=== PATIENT | female | born 1940 | race Caucasian/White ===

== ENCOUNTER 2019-01-15 17:27 | Emergency (ER) | payer OTHER, BC ==
[2019-01-15 18:42] LABS: Protime INR 1.09
[2019-01-15 18:44] LABS: Absolute Lymphocytes (CBC) 1.3 K/uL (0.7-4.9); Basophils % 0.4 % (0-1.3); Hematocrit 37.4 % (36.0-45.0); Lymphocytes % 16.2 % (15.3-44.8); MPV 10.2 fL (7.6-11.3); RBC Red Blood Cell Count 3.89 M/uL (3.86-4.86)
[2019-01-15 18:54] LABS: ALT/SGPT 24 U/L (12-78); AST/SGOT 20 U/L (15-37); Albumin 3.3 g/dL (3.4-5.0); Alkaline Phosphatase 56 U/L (45-117); BUN Blood Urea Nitrogen 13 mg/dL (7-18); Bicarbonate 27 mmol/L (21-32); Bilirubin Direct 0.3 mg/dL (0-0.2); Bilirubin Total 1.1 mg/dL (0.2-1.0); Glucose Level 120 mg/dL (74-106); Lipase 37 U/L (73-393); Magnesium 2.2 mg/dL (1.8-2.4); NT PRO-BNP 164 pg/mL (<450); Potassium 4.1 mmol/L (3.5-5.1); Protein, Total 7.3 g/dL (6.4-8.2); Sodium Level 140 mmol/L (136-145); Troponin (Emerg Dept Use Only) < 0.02 ng/mL (0.0-0.045)
--- NOTE | 2019-01-15 21:08 | RAD REPORT ---
EXAM DESCRIPTION: CT - Chest Abdomen Pelvis W Cont - 01/15/2019 7:22 pm CLINICAL HISTORY: Chest and abdominal pain COMPARISON: None TECHNIQUE: Computed axial tomography of the chest, abdomen and pelvis was obtained. 100 cc Isovue-30 0 was administered intravenously. Oral contrast was not requested. This limits evaluation of bowel. All CT scans are performed using dose optimization technique as appropriate and may include automated exposure control or mA/KV adjustment according to patient size. FINDINGS: Mild right lower lobe opacities. Minimal left basilar atelectasis A pleural effusion is not present. No pericardial effusion The esophagus is dilated. Questionable soft tissue is present at the GE junction. The esophagus is fl uid-filled. Fatty liver Pancreas, adrenals and right kidney unremarkable 4.4 centimeter left renal cyst. 1 centimeter intermediate density cystic mass lies adjacent to this w ithin the upper pole. The liver, spleen, pancreas, adrenals and kidneys appear unremarkable. The bladder appears grossly normal. No ascites is seen. Neurostimulator device is place Small ventral and small umbilical hernia contains fat Cholecystectomy IMPRESSION: The esophagus is dilated with questionable soft tissue at the GE junction. It is unclear if the patient has had a gastric pull-through. If not then direct visualization of the GE junction w ould be recommended Mild right lower lobe opacities may represent aspiration pneumonitis from esophageal contents. 1 centimeter intermediate density cystic mass left kidney is nonspecific. Followup ultrasound in 6 mo nths recommended to assess stability
[2019-01-15] MEDS ORDERED: PIPER/TAZO/NS 3.375gm 3.375 GM/100 ML BAG ONE (21:16)
--- NOTE | 2019-01-15 21:44 | RAD REPORT ---
EXAM DESCRIPTION: Samanthat Single View01/15/2019 7:21 pm CLINICAL HISTORY: Chest pain COMPARISON: 2017 FINDINGS: Mild right basilar opacities. Small area of subsegmental atelectasis left base. The heart is normal size. Neurostimulator device in place IMPRESSION: Mild right lower lobe pneumonia
--- NOTE | 2019-01-15 21:55 | ER ---
Nurse's Notes [facility] Name: Maricruz Conrad Age: 78 yrs Sex: Female : 1940 Arrival Date: 01/15/2019 Time: 17:28 Bed 2 Private MD: Diagnosis: Pneumonia Presentation: 01/15 17:37 Presenting complaint: Sharp RUQ and substernal chest pain that started at 1000 today. hb Pain is worse with cough and deep breathing. Transition of care: patient was not received from another setting of care. Onset of symptoms was January 15, 2019. Risk Assessment: Do you want to hurt yourself or someone else? Patient reports no desire to harm self or others. Initial Sepsis Screen: Does the patient meet any 2 criteria? No. Patient's initial sepsis screen is negative. Does the patient have a suspected source of infection? No. Patient's initial sepsis screen is negative. Care prior to arrival: None. 17:37 Method Of Arrival: Wheelchair hb 17:37 Acuity: EMILY 3 hb Triage Assessment: 17:45 General: Appears in no apparent distress. comfortable, Behavior is calm, cooperative, bp appropriate for age. Pain: Complains of pain in chest and abdomen. EENT: No deficits noted. Neuro: No deficits noted. Cardiovascular: Rhythm is atrial fibrillation. Respiratory: No deficits noted. GI: Reports upper abdominal pain. : No signs and/or symptoms were reported regarding the genitourinary system. Derm: No deficits noted. Musculoskeletal: No deficits noted. Historical: - Allergies: 17:39 No Known Allergies; hb - PMHx: 17:39 COPD; High Cholesterol; Diabetes - IDDM; GERD; Hypertension; Anxiety; hb - Immunization history:: Adult Immunizations up to date. - Social history:: Smoking status: Patient/guardian denies using tobacco. - Ebola Screening: : No symptoms or risks identified at this time. Screenin:21 Abuse screen: Denies threats or abuse. Denies injuries from another. Nutritional bp screening: No deficits noted. Tuberculosis screening: No symptoms or risk factors identified. Fall Risk None identified. Assessment: 18:00 General: SEE TRIAGE NOTE. bp 19:10 Reassessment: Patient and/or family updated on plan of care and expected duration. Pain bp level reassessed. Patient is alert, oriented x 3, equal unlabored respirations, skin warm/dry/pink. Pt taken to CT. 19:54 General: Behavior is calm, cooperative, appropriate for age. Pain: Complains of pain in ea abdomen Pain does not radiate. Pain began. Neuro: Level of Consciousness is awake, alert, obeys commands, Oriented to person, place, time, situation. Respiratory: Airway is patent Respiratory effort is even, unlabored, Respiratory pattern is regular, symmetrical. Derm: Skin is pink, warm \T\ dry. 20:32 Reassessment: Patient and/or family updated on plan of care and expected duration. Pain ea level reassessed. Patient is alert, oriented x 3, equal unlabored respirations, skin warm/dry/pink. Awaiting on CT results. 20:46 Reassessment: Patient and/or family updated on plan of care and expected duration. Pain ea level reassessed. Patient is alert, oriented x 3, equal unlabored respirations, skin warm/dry/pink. Provider at bedside updating pt on plan of care. 21:09 Reassessment: Patient and/or family updated on plan of care and expected duration. Pain bb level reassessed. Patient is alert, oriented x 3, equal unlabored respirations, skin warm/dry/pink. Robert SWEET at bedside for discussion of findings and plan of care will await new lab results and will consider discharging pt home if they are normal. Pt verbalized understanding of and agrees to plan of care. 22:59 Reassessment: Patient and/or family updated on plan of care and expected duration. Pain bb level reassessed. Patient is alert, oriented x 3, equal unlabored respirations, skin warm/dry/pink. pt verbalized understanding of and agrees to plan of care discharge instructions given pt assisted to exit via wheelchair accompanied by spouse. Vital Signs: 17:39 BP 150 / 82; Pulse 86; Resp 20; Temp 97; Pulse Ox 93% on R/A; Weight 81.65 kg; Height 5 hb ft. 3 in. (160.02 cm); Pain 9/10; 18:22 BP 143 / 62; Pulse 96; Resp 16; Pulse Ox 93% ; bp 20:01 BP 129 / 65; Pulse 90; Resp 20; Temp 97.9; Pulse Ox 94% ; ea 21:11 BP 126 / 59; Pulse 78; Resp 16 S; Pulse Ox 92% on R/A; bb 23:00 BP 113 / 59; Pulse 76; Resp 18 S; Temp 98.6(TE); Pulse Ox 92% on R/A; bb 17:39 Body Mass Index 31.89 (81.65 kg, 160.02 cm) hb ED Course: 17:28 Patient arrived in ED. as 17:38 Triage completed. hb 17:39 Arm band placed on. hb 17:41 Carlyle Dixon, RICKI is Primary Nurse. bp 17:41 Robert Bailey PA is PHCP. jmm 17:41 Alan Rubio MD is Attending Physician. m 17:55 Radiology exam delayed due to lab results not completed at this time. (BUN/Creatinine). vm2 18:00 Inserted saline lock: 22 gauge in right forearm, using aseptic technique. Blood bp collected. Patient maintains SpO2 saturation greater than 95% on room air. 18:21 Patient has correct armband on for positive identification. Bed in low position. Call bp light in reach. Side rails up X2. Adult w/ patient. Pulse ox on. NIBP on. 18:41 Radiology exam delayed due to lab results not completed at this time. (BUN/Creatinine). vm2 18:57 XRAY Chest (1 view) In Process Unspecified. EDMS 19:23 CT Chest, Abdomen, Pelvis - W/Contrast In Process Unspecified. EDMS 21:00 Initial lab(s) drawn, sent to lab. First set of blood cultures drawn by me. bb 21:08 Inserted saline lock: 20 gauge in left forearm, using aseptic technique. Blood bb collected. 23:00 No provider procedures requiring assistance completed. IV discontinued, intact, bb bleeding controlled, No redness/swelling at site. Pressure dressing applied. Administered Medications: 21:40 Drug: Zosyn 3.375 grams Route: IVPB; Infused Over: 60 mins; Site: left forearm; ea 22:40 Follow up: IV Status: Completed infusion; IV Intake: 100ml bb Intake: 22:40 IV: 100ml; Total: 100ml. bb Outcome: 21:54 Discharge ordered by . m 23:00 Discharged to home via wheelchair, with family. bb 23:00 Condition: stable 23:00 Discharge instructions given to patient, Instructed on discharge instructions, follow up and referral plans. medication usage, Demonstrated understanding of instructions, follow-up care, medications. 23:01 Patient left the ED. bb Signatures: Dispatcher [employer] EDMS Robert Bailey PA PA jmm Martinez, Amelia as Ballard, Brenda, RN RN Serenity De La Cruz, RN RN Fabienne Ennis [facility] Haylie Renteria RN RN Carlyle Sanderson RN RN bp
--- NOTE | 2019-01-15 21:55 | EDPHYS ---
Physician Documentation [facility] Name: Maricruz Conrad Age: 78 yrs Sex: Female : 1940 Arrival Date: 01/15/2019 Time: 17:28 Bed 2 Private MD: CAN Physician Alan Rubio HPI: 01/15 17:41 This 78 yrs old Female presents to ER via Wheelchair with complaints of Chest jmm Pain, Abdominal Pain. 17:41 The patient or guardian reports chest pain that is located primarily in the substernal [facility] area. Onset: gradually, 8 hour(s) ago. The pain does not radiate. Associated signs and symptoms: Pertinent positives: abdominal pain, Pertinent negatives: vomiting. Associated signs and symptoms: Pertinent positives:. The chest pain is described as sharp. Duration: The patient or guardian reports a single episode, that is still ongoing. Modifying factors: The symptoms are alleviated by nothing. the symptoms are aggravated by deep breath. 17:41 The patient has experienced a previous episode. [facility] Historical: - Allergies: 17:39 No Known Allergies; hb - PMHx: 17:39 COPD; High Cholesterol; Diabetes - IDDM; GERD; Hypertension; Anxiety; hb - Immunization history:: Adult Immunizations up to date. - Social history:: Smoking status: Patient/guardian denies using tobacco. - Ebola Screening: : No symptoms or risks identified at this time. ROS: 17:41 Constitutional: Negative for fever, chills, and weight loss. jmm 17:41 Cardiovascular: Positive for chest pain. 17:41 Respiratory: Positive for cough, shortness of breath. 17:41 Abdomen/GI: Positive for abdominal pain, Negative for vomiting, diarrhea. 17:41 All other systems are negative. Exam: 17:41 Constitutional: This is a well developed, well nourished patient who is awake, alert, jmm and in no acute distress. Head/Face: atraumatic. Eyes: EOMI, no conjunctival erythema appreciated ENT: Moist Mucus Membranes Neck: Trachea midline, Supple Chest/axilla: Normal chest wall appearance and motion. 17:41 Abdomen/GI: Non distended, soft Back: Normal ROM Skin: General appearance color normal MS/ Extremity: Moves all extremities, no obvious deformities appreciated, no edema noted to the lower extremities Neuro: Awake and alert, normal gait Psych: Behavior is normal, Mood is normal, Patient is cooperative and pleasant 17:41 Cardiovascular: Rate: normal, Rhythm: regular. 17:41 Respiratory: the patient does not display signs of respiratory distress, Respirations: normal, Breath sounds: are clear throughout. Vital Signs: 17:39 BP 150 / 82; Pulse 86; Resp 20; Temp 97; Pulse Ox 93% on R/A; Weight 81.65 kg; Height 5 hb ft. 3 in. (160.02 cm); Pain 9/10; 18:22 BP 143 / 62; Pulse 96; Resp 16; Pulse Ox 93% ; bp 20:01 BP 129 / 65; Pulse 90; Resp 20; Temp 97.9; Pulse Ox 94% ; ea 21:11 BP 126 / 59; Pulse 78; Resp 16 S; Pulse Ox 92% on R/A; bb 23:00 BP 113 / 59; Pulse 76; Resp 18 S; Temp 98.6(TE); Pulse Ox 92% on R/A; bb 17:39 Body Mass Index 31.89 (81.65 kg, 160.02 cm) hb MDM: 17:41 Patient medically screened. shelley 21:50 Data reviewed: vital signs, nurses notes. Counseling: I had a detailed discussion with alissa the patient and/or guardian regarding: the historical points, exam findings, and any diagnostic results supporting the discharge/admit diagnosis, radiology results, the need for outpatient follow up, to return to the emergency department if symptoms worsen or persist or if there are any questions or concerns that arise at home. ED course: I discussed the patient with Dr. Dupont whom visited the patient at bedside. Advised the patient is safe to D/C/ Patient is advised to follow up with pcp and otherwise given strict return precautions. Patient is non hypoxic, non septic. Advised to sleep with head elevated and continue PPI. Patient otherwise given strict return precautions. patient understood and agrees with the plan of care. . 01/15 17:41 Order name: Basic Metabolic Panel; Complete Time: 18:55 [facility] 01/15 17:41 Order name: CBC with Diff; Complete Time: 18:56 [facility] 01/15 17:41 Order name: LFT's; Complete Time: 18:55 [facility] 01/15 17:41 Order name: Magnesium; Complete Time: 18:55 [facility] 01/15 17:41 Order name: NT PRO-BNP; Complete Time: 18:55 [facility] 01/15 17:41 Order name: PT-INR; Complete Time: 18:56 [facility] 01/15 17:41 Order name: Troponin (emerg Dept Use Only); Complete Time: 18:55 [facility] 01/15 17:41 Order name: XRAY Chest (1 view); Complete Time: 21:57 [facility] 01/15 17:41 Order name: Lipase; Complete Time: 18:55 [facility] 01/15 17:52 Order name: CT Chest, Abdomen, Pelvis - W/Contrast; Complete Time: 21:27 [facility] 01/15 20:46 Order name: Blood Culture Adult (2) [facility] 01/15 20:46 Order name: Procalcitonin; Complete Time: 21:57 [facility] 01/15 20:46 Order name: Lactate; Complete Time: 21:31 [facility] 01/15 17:41 Order name: EKG; Complete Time: 17:42 [facility] 01/15 17:41 Order name: Cardiac monitoring; Complete Time: 17:49 [facility] 01/15 17:41 Order name: EKG - Nurse/Tech; Complete Time: 17:48 [facility] 01/15 17:41 Order name: IV Saline Lock; Complete Time: 18:19 [facility] 01/15 17:41 Order name: Labs collected and sent; Complete Time: 18:19 [facility] 01/15 17:41 Order name: O2 Per Protocol; Complete Time: 17:49 [facility] 01/15 17:41 Order name: O2 Sat Monitoring; Complete Time: 17:49 jmm Administered Medications: 21:40 Drug: Zosyn 3.375 grams Route: IVPB; Infused Over: 60 mins; Site: left forearm; ea 22:40 Follow up: IV Status: Completed infusion; IV Intake: 100ml bb Disposition: 01/15/19 21:54 Discharged to Home. Impression: Pneumonia. - Condition is Stable. - Discharge Instructions: Aspiration Pneumonia. - Prescriptions for Augmentin 875- 125 mg Oral Tablet - take 1 tablet by ORAL route every 12 hours for 10 days; 20 tablet. - Medication Reconciliation Form, Thank You Letter, Antibiotic Education, Prescription Opioid Use form. - Follow up: Private Physician; When: 2 - 3 days; Reason: Recheck today's complaints, Continuance of care, Re-evaluation by your physician. - Notes: Take Florastor as directed while on antibiotics. Please return to the ED if you develop - Fever - Shortness of breath - Worsening pain - Any other concerning symptoms. Addendum: 01/17/2019 07:56 Co-signature as Attending Physician, Alan Rubio MD I agree with the assessment and c obando plan of care. Signatures: Dispatcher [employer] EDMS Alan Rubio MD MD cha Mickail, Joel, PA PA jmm Ballard, Brenda, RN RN bb Serenity Almaguer, RICKI RN Haylie Benitez RN RN ea Corrections: (The following items were deleted from the chart) 01/15 23:01 21:54 01/15/2019 21:54 Discharged to Home. Impression: Pneumonia. Condition is Stable. bb Forms are Medication Reconciliation Form, Thank You Letter, Antibiotic Education, Prescription Opioid Use. Follow up: Private Physician; When: 2 - 3 days; Reason: Recheck today's complaints, Continuance of care, Re-evaluation by your physician. alissa 01/16 14:03 01/15 21:50 ED course: Patient is advised to follow up with pcp and otherwise given alissa strict return precautions. Patient is non hypoxic, non septic. Advised to sleep with head elevated and continue PPI. Patient otherwise given strict return precautions. patient understood and agrees with the plan of care. . alissa
[2019-01-16 01:08] VITALS: O2SAT 92
[2019-01-16 01:09] VITALS: BP 113/59; TEMP 98.6
--- NOTE | 2019-01-16 04:38 | EKG ---
Test Date: 2019-01-15 Test Time: 17:46:11 [place] Assistant: CRISTIN MEASUREMENT RESULTS: Intervals: Rate: 103 MI: 156 QRSD: 74 QT: 340 QTc: 445 [place]: P: 68 MI: 156 QRS: 68 T: 43 INTERPRETIVE STATEMENTS: Sinus tachycardia Low voltage QRS Septal infarct, age undetermined Abnormal ECG Compared to ECG 09/09/2017 09:15:14 Low QRS voltage now present Myocardial infarct finding now present Sinus rhythm no longer present ST (T wave) deviation no longer present Electronically Signed On 01-16-19 04:38:16 CDT by Mike Mercer
== END 2019-01-15 23:01 | disposition home or self-care (01) ==
LOC: ER 17:27
DX: J18.9 Pneumonia, unspecified organism (principal); I10 Essential (primary) hypertension
CPT/HCPCS: 96365; 93005; 87040 ×2; 85025; 80048; 36415; 83735; 85610; 80076; 83605; 84484; 83690; 84145; 83880; 71260; 74177; 71045; 99285; Q9967; J2543

== ENCOUNTER 2020-03-31 08:30 | Day surgery (SDC) | payer OTHER, BC ==
[2020-03-28 15:52] LABS: Absolute Lymphocytes (CBC) 1.7 K/uL (0.7-4.9); Basophils % 0.8 % (0-1.3); Hematocrit 43.9 % (36.0-45.0); Lymphocytes % 25.9 % (15.3-44.8); MPV 10.8 fL (7.6-11.3); RBC Red Blood Cell Count 4.87 M/uL (3.86-4.86)
[2020-03-28 15:53] LABS: Protime INR 0.98
[2020-03-28 16:13] LABS: Potassium 4.5 mmol/L (3.5-5.1)
--- NOTE | 2020-03-28 16:42 | RAD REPORT ---
EXAM DESCRIPTION: Pranav Bobby And Eduard (2 Views)03/28/2020 3:48 pm CLINICAL HISTORY: Preop for cardiac catheterization/hypertension COMPARISON: 2019 FINDINGS: The lungs appear clear of acute infiltrate. The heart is mildly enlarged. Aorta is tortuo us/ectatic. Neurostimulator device is in place IMPRESSION: No acute abnormalities displayed
[~2020-03-31 08:30] MED LIST: HEPA 1000U/500MLS 1,000 UNIT/500 ML BAG IV ONE
--- OUTSIDE RECORDS SUMMARY | 2020-03-31 08:33 | XMS REPORT | Clinical Summary ---
:1940 Author Organization [facility] Address [address] [place] [address] Care Team Providers Name Role Phone Slime Richardson DO Primary Care Provider Allergies No Known Active Allergies Medications Medication Sig Dispensed Refills Start End Date Status Date CINNAMON BARK ORAL Take 1,000 mg by 0 Active mouth daily. cycloSPORINE Apply 5 % to eye 0 Active (RESTASIS) 0.05 % daily. ophthalmic emulsion biotin 1 mg Take 1 mg by 0 Activ e capsule mouth daily. clonAZEPAM Take 1 mg by 0 Active (KlonoPIN) 1 MG mouth daily. tablet coenzyme Q10 (CO Take 10 mg by 0 Active Q-10) 10 mg mouth daily. capsule donepezil Take 5 mg by 0 Active (ARICEPT) 5 MG mouth nightly. tablet DULoxetine Take 60 mg by 0 Activ e (CYMBALTA) 60 MG mouth daily. capsule budesonide EC Take 6 mg by 0 Act arturo (ENTOCORT EC) 3 mg mouth 3 (three) 24 hr capsule times a day. omega Take 1,000 mg by 0 Act arturo 3-xox-gzo-fish oil mouth daily. (FISH OIL) 1,000 mg (120 mg-180 mg) capsule gabapentin Take 300 mg by 0 Acti ve (NEURONTIN) 300 mg mouth 3 (three) capsule times a day. garlic 1 mg Take 1 mg by 0 Activ e capsule mouth daily. ibandronate Take 150 mg by 0 Act arturo (BONIVA) 150 mg mouth every 30 tablet (thirty) days. Take in AM with glass of water prior to food, don't lie down for 30 minutes. latanoprost Administer 1 0 Activ e (XALATAN) 0.005 % drop to both ophthalmic eyes nightly. solution lisinopril Take 20 mg by 0 Activ e (PRINIVIL,ZESTRIL) mouth daily. 20 mg tablet magnesium oxide Take 400 mg by 0 Active (MAG-OX) 400 mg mouth daily. (241.3 mg magnesium) tablet melatonin 3 mg Take 3 mg by 0 Ac tive tablet mouth nightly. memantine Take 10 mg by 0 Active (NAMENDA) 10 MG mouth 2 (two) tablet times a day. montelukast Take 10 mg by 0 Acti ve (SINGULAIR) 10 mg mouth nightly. tablet multivitamin with Take 1 tablet by 0 Active minerals tablet mouth daily. niacin 500 MG Take 500 mg by 0 A ctive tablet mouth daily with breakfast. omeprazole Take 40 mg by 0 Activ e (PriLOSEC) 40 MG mouth daily. capsule oxybutynin Take 5 mg by 0 Active (DITROPAN) 5 MG mouth 2 (two) tablet times a day. simvastatin Take 20 mg by 0 Acti ve (ZOCOR) 20 MG mouth nightly. tablet tiotropium-olodate Take 2 0 A ctive rol (STIOLTO inhalations by RESPIMAT) 2.5-2.5 mouth once mcg/actuation daily. inhalation solution b complex vitamins Take 1 tablet by 0 Active tablet mouth daily. cholecalciferol, Take 1,000 Units 0 Active vitamin D3, by mouth daily. (VITAMIN D3) 1,000 unit capsule methotrexate 2.5 Take 2.5 mg by 0 Active MG tablet mouth. 9 folic acid Take 1 mg by 0 Active (FOLVITE) 1 MG mouth daily. 9 tablet turmeric root Take 1 capsule 0 A ctive extract 500 mg by mouth daily. capsule liraglutide Inject under the 0 A ctive (VICTOZA) 0.6 skin daily with mg/0.1 mL (18 mg/3 breakfast. mL) pen injector fluticasone 2 sprays by Each 0 A ctive propionate Nare route (FLONASE) 50 nightly. mcg/actuation nasal spray syringe with 20 Syringes take 20 each 0 Active needle 3 mL 25 x as directed (As 0 5/8" directed). syringeIndications : Vitamin deficiency, Malabsorption due to intolerance, not elsewhere classified insulin ASPART Inject 6 Units 0 03/31/20 Discontinued (NovoLOG Flexpen under the skin 3 19 (Stop Taking at U-100 Insulin) 100 (three) times a Discharge) unit/mL insulin day with meals. pen insulin GLARGINE Inject 50 Units 0 0 Discontinued (TOUJEO SOLOSTAR under the skin 19 (Stop Taking at U-300 INSULIN) 300 daily. D ischarge) unit/mL (1.5 mL) insulin pen metoprolol Take 25 mg by 0 03/31/20 Disco ntinued succinate XL mouth daily. 9 19 (TOPROL-XL) 25 mg 24 hr tablet inFLIXimab Infuse into a 0 03/31/20 Disco ntinued (REMICADE) 100 mg venous catheter. 19 (Stop Taking at injection Discharge) metoprolol Take 0.5 tablets 30 tablet 0 04/29/19 Ex pired tartrate (12.5 mg total) 9 20 (LOPRESSOR) 25 mg by mouth 2 (two) tablet times a day for 30 days. HYDROcodone-acetam Take 1 tablet by 30 tablet 0 03/14 Discontinued inophen (NORCO) mouth every 6 9 19 5-325 mg per (six) hours as tabletIndications: needed for acute pain moderate pain for up to 7 days .acute pain. Max Daily Amount: 4 tablets ondansetron Take 1 tablet (4 20 tablet 0 04/30/19 E xpired (ZOFRAN) 4 MG mg total) by 9 20 tablet mouth every 8 (eight) hours as needed for nausea or vomiting for up to 30 days. HYDROcodone-acetam Take 1 tablet by 30 tablet 0 03/14 Discontinued inophen (NORCO) mouth every 6 9 19 (Stop Taking at 5-325 mg per (six) hours as Di scharge) tabletIndications: needed for acute pain moderate pain for up to 7 days .acute pain. Max Daily Amount: 4 tablets enoxaparin Inject 0.3 mL 5.6 mL 0 04/14/19 Expir ed (LOVENOX) 40 (30 mg total) 9 20 mg/0.4 mL syringe under the skin daily for 14 days. HYDROcodone-acetam Take 10 mL by 200 mL 0 0 inophen (HYCET) mouth every 6 9 19 2.5-108.3 mg/5 mL (six) hours as solutionIndication needed for s: acute pain severe pain for up to 5 days .acute pain. Max Daily Amount: 40 mL Hospital, Clinic, or Other Ordered Dose Route Frequency Start Date End Date Status Facility Administered Medication cyanocobalamin injection 1000 mcg IM once 04/27/2019 Active 1,000 mcgIndications: Vitamin deficiency, Malabsorption due to intolerance, not elsewhere classified Active Problems Problem Noted Date Gastroesophageal reflux disease with esophagitis 03/26 Epigastric pain 01/19/2019 Obesity 01/19/2019 Metabolic syndrome 01/19/2019 Gastric outlet obstruction 01/19/2019 Abnormal finding on GI tract imaging 01/19/2019 Encounters Date Type Specialty Care Team Description 02/15/2020 Telephone General Surgery Darvin Walton MD 02/02/2020 Orders Only General Surgery Deedee Bermudez, Weight loss (Primary Dx); DYNO TECHNICIAN Other specified intestinal malabsorption; S/P bariatric s urgery; Obstructive sle ep apnea; Gastric banding status; Status post gas tric banding; Gastroesophagea l reflux disease without esophagitis; Multiple vitami n deficiency 02/01/2020 Office Visit General Surgery [place] Weakness (Pr imary Dx); STEVEN Melvin Other specified intestinal malabsorption; S/P bypass carmen rojejunostomy; History of repa ir of hiatal hernia; Current use of proton pump inhibitor 02/01/2020 Telephone General Surgery [place] NP 02/01/2020 Travel 01/20/2020 Telephone Gastroenterology Maribeth Landrum MA 01/10/2020 Orders Only General Surgery [place] Diabetes 1.5 , managed as type 2 (HCC) (Primary Dx); STEVEN Melvin Gastroesophagea l reflux disease with esophagitis; S/P bariatric s urgery 09/14/2019 Office Visit General Surgery Darvin Walton, S/P bariatr ic surgery (Primary Dx); Diabetes 1.5, managed as type 2 (HCC); Deonna Lamb Obstructive sle ep apnea MICKI Beltran 09/14/2019 Travel 09/10/2019 Travel 08/09/2019 Travel 07/12/2019 Travel 04/27/2019 Office Visit General Surgery Ofili, Deonna Surgery foll ow-up NMICKI Villalpando examination (Primary Dx) Darvin Walton MD 04/27/2019 Orders Only General Surgery Muse, Vitamin defi ciency (Primary Dx); MT Mohamud Malabsorption d ue to intolerance, not elsewhere classified; S/P bariatric s urgery; Weight loss; Other iron defi ciency anemia; Abnormal blood level of iron 04/13/2019 Office Visit General Surgery Deonna Lamb S/P bariatri c surgery (Primary Dx); MICKI Beltran Weight loss 04/01/2019 Orders Only General Surgery Darvin Walton MD 03/31/2019 Orders Only General Surgery LaraDeedee german, DYNO TECHNICIAN 03/26/2019 - Hospital Encounter General Surgery Darvin Walton Gastr oesophageal reflux disease with esophagitis; 03/31/2019 Esophageal dysp hagia; Gastric outlet obstruction; Vomiting withou t nausea, intractability of vomiting not specified, unspecified vomiting type; Epigastric pain after 03/31/2019 Surgical History Surgery Date Site/Laterality Comments GALLBLADDER SURGERY LIPOSUCTION HYSTERECTOMY GASTRIC BANDING, LAPAROSCOPIC CATARACT EXTRACTION LAMINECTOMY THORACIC SPINE W/ PLACEMENT SPINAL CORD STIMULATOR HIP SURGERY Right STOMACH SURGERY Tummy Tuck ESOPHAGEAL MANOMETRY WITH 12/15/2018 N/A Proced ure: ESOPHAGEAL IMPEDANCE PROBE MANOMETRY WITH I MPEDANCE PROBE; Surgeon: Joni Lira MD; Location: [facility]; Service: Gastroenterology ; Laterality: N/A; ESOPHAGOGASTRODUODENOSCOPY (EGD) 02/01/2019 N/A Procedure: EGD WITH BIOPSY; Surgeon : Derrick Oneill MD; Locati on: [facility]; Serv ice: Gastroenterology ; Laterality: N/A; GASTROENTEROSTOMY, CÉSAR-EN-Y, 03/26/2019 Abdomen/N/A Pr ocedure: LAPAROSCOPIC LAPAROSCOPIC, WITH INTRAOPERATIVE LYSIS OF ADHESIONS WITH ENDOSCOPY CÉSAR EN Y GASTROJEJUNOSTOM Y WITH INTRAOPERATIVE ENDOSCOPY; Surg maritza: Darvin Walton MD ; Location: [facility]; Service: General ; Laterality: N/A; Medical devices from this surgery are in the Implants section . Medical History Medical History Date Comments Anxiety COPD (chronic obstructive pulmonary disease) (HCC) Arthritis Crohn's colitis (HCC) Obesity Hemorrhoids Diverticulosis History of colon polyps Colitis Hematochezia pt denies - none cur rently 03/2019 Gastritis, unspecified, without bleeding Anesthesia nhap/nfhap - all tristan th secure GERD (gastroesophageal reflux disease) m oderate controlled w/ meds Hiatal hernia Hypercholesteremia Hypertension Type 2 diabetes mellitus (HCC) Esophagitis Sleep apnea CPAP (continuous positive airway pressure) dependence Chest pain occaisional - all st ress tests clear - determined n ot heart but acid reflux Aspiration pneumonia (HCC) 01/15/2019 tx in ER - ac id reflux Osteoporosis Subarachnoid hemorrhage (HCC) 1980 could not find bleed area - "closed on its own" no more since that time Crohn disease (HCC) Family History Medical History Relation Name Comments Heart attack Father No Known Problems Mother Relation Name Status Comments Father Mother Social History Tobacco Use Types Packs/Day Years Used Date Former Smoker Cigarettes Quit: 1976 Smokeless Tobacco: Never Used Alcohol Use Drinks/Week oz/Week Comments Yes occaisional Alcohol Habits Answer Date Recorded How often do you have a drink containing alcohol? 2-3 times a week 06/30/2018 How many drinks containing alcohol do you have on a Not aske d typical day when you are drinking? How often do you have six or more drinks on one Not asked occasion? Sex Assigned at Date Recorded Not on file Last Filed Vital Signs Vital Sign Reading Time Taken Comments Blood Pressure 133/61 02/01/2020 10:55 AM CDT Pulse 62 02/01/2020 10:55 AM CDT Temperature 36.7 C (98.1 F) 09/14/2019 10:58 AM CDT Respiratory Rate 16 09/14/2019 10:58 AM CDT Oxygen Saturation 100% 02/01/2020 10:55 AM CDT Inhaled Oxygen Concentration - - Weight 64.9 kg (143 lb) 02/01/2020 10:55 AM CDT Height 160 cm (5' 3") 02/01/2020 10:55 AM CDT Body Mass Index 25.33 02/01/2020 10:55 AM CDT Plan of Treatment Date Type Specialty Care Team Description 02/06/2021 Office Visit General Surgery Darvin Walton MD [address] [facility] [address] [place] [id number] [place] NP [address] [address] [phone] Health Maintenance Due Date Last Done Comments DIABETES: RETINAL EYE EXAM 1952 DIABETIC FOOT EXAM 1950 URINE MICROALBUMIN 1952 COVID-19 VACCINE (#1) 1958 SHINGLES VACCINES (#1) 1992 65+ PNEUMOCOCCAL VACCINE (1 of 1 - PPSV23) 12/22/2007 INFLUENZA VACCINE 11/13/2019 01/30/2018 Implants Implanted Type Area Experimental Display Builder Device Shelf Model / Identifier Expiration Serial / Date Lot Drain Wnd Chnl 19fr 1/4in Rnd Hbls Fl-Flut W/ 4in Tr ocar - [id number] Surgical N/A: N/A ETHICON US ET 2231 / Implanted: 03/26/2019 at [facility] (Quantity not on file) Implants; / Expanders; Extenders; Surgical Wires Drain Wnd Chnl 19fr 1/4in Rnd Hbls Fl-Flut W/ n Tr ochan - [id number] Surgical N/A: N/A ETH[employer]ON US ET 223 / Implanted: 03/26/2019 at [facility] (Quantity not on file) Implants; / Expanders; Extenders; Surgical Wires Procedures Procedure Name Priority Date/Time Associated Comments Diagnosis VITAMIN B6 LEVEL, Routine 02/07/2020 1:57 Weakness Result s for this PLASMA PM CDT procedure are i n the results section. VITAMIN B1 LEVEL, Routine 02/07/2020 1:57 Weakness Result s for this WHOLE BLOOD PM CDT procedure are i n the results section. HEMOGLOBIN A1C Routine 01/21/2020 12:00 Diabetes 1.5, Results for this AM CDT managed as type 2 procedure are in (HCC) the results Gastroesophageal section. reflux disease with esophagitis S/P bariatric surgery ZINC LEVEL, SERUM Routine 01/21/2020 12:00 Diabetes 1.5, Resul ts for this AM CDT managed as type 2 procedure are in (HCC) the results Gastroesophageal section. reflux disease with esophagitis S/P bariatric surgery VITAMIN B1 LEVEL, Routine 01/21/2020 12:00 Diabetes 1.5, Resul ts for this WHOLE BLOOD AM CDT managed as type 2 procedure are in (HCC) the results Gastroesophageal section. reflux disease with esophagitis S/P bariatric surgery FOLATE LEVEL Routine 01/21/2020 12:00 Diabetes 1.5, Results fo r this AM CDT managed as type 2 procedure are in (HCC) the results Gastroesophageal section. reflux disease with esophagitis S/P bariatric surgery COPPER LEVEL, SERUM Routine 01/21/2020 12:00 Diabetes 1.5, Res ults for this AM CDT managed as type 2 procedure are in (HCC) the results Gastroesophageal section. reflux disease with esophagitis S/P bariatric surgery VITAMIN D 25 HYDROXY Routine 01/21/2020 12:00 Diabetes 1.5, Re sults for this LEVEL AM CDT managed as type 2 procedure are in (HCC) the results Gastroesophageal section. reflux disease with esophagitis S/P bariatric surgery VITAMIN B12 LEVEL Routine 01/21/2020 12:00 Diabetes 1.5, Resul ts for this AM CDT managed as type 2 procedure are in (HCC) the results Gastroesophageal section. reflux disease with esophagitis S/P bariatric surgery VITAMIN A LEVEL, Routine 01/21/2020 12:00 Diabetes 1.5, Result s for this PLASMA OR SERUM AM CDT managed as type 2 procedu re are in (HCC) the results Gastroesophageal section. reflux disease with esophagitis S/P bariatric surgery T3 Routine 09/02/2019 7:07 Vitamin deficie ncy Results for this AM CDT Malabsorption due procedure are in to intolerance, not the resu lts elsewhere section. classified S/P bariatric surgery Weight loss Other iron deficiency anemi a Abnormal blood level of iron ZINC LEVEL, SERUM Routine 09/02/2019 7:07 Vitamin defic iency Results for this AM CDT Malabsorption due procedure are in to intolerance, not the resu lts elsewhere section. classified S/P bariatric surgery Weight loss Other iron deficiency anemi a Abnormal blood level of iron VITAMIN B1 LEVEL, Routine 09/02/2019 7:07 Vitamin defic iency Results for this WHOLE BLOOD AM CDT Malabsorption due procedure are in to intolerance, not the resu lts elsewhere section. classified S/P bariatric surgery Weight loss Other iron deficiency anemi a Abnormal blood level of iron FERRITIN LEVEL Routine 09/02/2019 7:07 Vitamin deficie ncy Results for this AM CDT Malabsorption due procedure are in to intolerance, not the resu lts elsewhere section. classified S/P bariatric surgery Weight loss Other iron deficiency anemi a Abnormal blood level of iron FOLATE LEVEL Routine 09/02/2019 7:07 Vitamin deficie ncy Results for this AM CDT Malabsorption due procedure are in to intolerance, not the resu lts elsewhere section. classified S/P bariatric surgery Weight loss Other iron deficiency anemi a Abnormal blood level of iron COPPER LEVEL, SERUM Routine 09/02/2019 7:07 Vitamin def iciency Results for this AM CDT Malabsorption due procedure are in to intolerance, not the resu lts elsewhere section. classified S/P bariatric surgery Weight loss Other iron deficiency anemi a Abnormal blood level of iron VITAMIN D 25 HYDROXY Routine 09/02/2019 7:07 Vitamin de ficiency Results for this LEVEL AM CDT Malabsorption due procedure are in to intolerance, not the resu lts elsewhere section. classified S/P bariatric surgery Weight loss Other iron deficiency anemi a Abnormal blood level of iron VITAMIN B12 LEVEL Routine 09/02/2019 7:07 Vitamin defic iency Results for this AM CDT Malabsorption due procedure are in to intolerance, not the resu lts elsewhere section. classified S/P bariatric surgery Weight loss Other iron deficiency anemi a Abnormal blood level of iron VITAMIN A LEVEL, Routine 09/02/2019 7:07 Vitamin defici ency Results for this PLASMA OR SERUM AM CDT Malabsorption due procedu re are in to intolerance, not the resu lts elsewhere section. classified S/P bariatric surgery Weight loss Other iron deficiency anemi a Abnormal blood level of iron CBC WITH PLATELET AND Routine 09/02/2019 7:07 Vitamin d eficiency Results for this DIFFERENTIAL AM CDT Malabsorption due procedure are in to intolerance, not the resu lts elsewhere section. classified S/P bariatric surgery Weight loss Other iron deficiency anemi a Abnormal blood level of iron PARATHYROID HORMONE Routine 09/02/2019 7:07 Vitamin def iciency Results for this AM CDT Malabsorption due procedure are in to intolerance, not the resu lts elsewhere section. classified S/P bariatric surgery Weight loss Other iron deficiency anemi a Abnormal blood level of iron HEMOGLOBIN A1C Routine 09/02/2019 7:07 Vitamin deficie ncy Results for this AM CDT Malabsorption due procedure are in to intolerance, not the resu lts elsewhere section. classified S/P bariatric surgery Weight loss Other iron deficiency anemi a Abnormal blood level of iron THYROID STIMULATING Routine 09/02/2019 7:07 Vitamin def iciency Results for this HORMONE AM CDT Malabsorption due procedure are in to intolerance, not the resu lts elsewhere section. classified S/P bariatric surgery Weight loss Other iron deficiency anemi a Abnormal blood level of iron T4, FREE Routine 09/02/2019 7:07 Vitamin deficie ncy Results for this AM CDT Malabsorption due procedure are in to intolerance, not the resu lts elsewhere section. classified S/P bariatric surgery Weight loss Other iron deficiency anemi a Abnormal blood level of iron TOTAL IRON BINDING Routine 09/02/2019 7:07 Vitamin defi ciency Results for this CAPACITY AM CDT Malabsorption due procedure are in to intolerance, not the resu lts elsewhere section. classified S/P bariatric surgery Weight loss Other iron deficiency anemi a Abnormal blood level of iron LIPID PANEL Routine 09/02/2019 7:07 Vitamin deficie ncy Results for this AM CDT Malabsorption due procedure are in to intolerance, not the resu lts elsewhere section. classified S/P bariatric surgery Weight loss Other iron deficiency anemi a Abnormal blood level of iron COMPREHENSIVE Routine 09/02/2019 7:07 Vitamin deficie ncy Results for this METABOLIC PANEL AM CDT Malabsorption due procedu re are in to intolerance, not the resu lts elsewhere section. classified S/P bariatric surgery Weight loss Other iron deficiency anemi a Abnormal blood level of iron after 03/31/2019 Results Vitamin B1 level, whole blood (02/07/2020 1:57 PM CDT)Only the most recent of3 resultswithin the time period is included. Vitamin B1, 487 (H) 78 - 185 [employer] whole blood Comment: nmol/L KENDALL MARTINEZ Vitamin supplementation within 24 hours prior to blood draw may affect the accuracy of results. This test was developed and its analytical performance characteristics have been determined by [facility]. It has not been cleared or approved by [facility] FDA. This assay has been validated pursuant to the CLI A regulations and is used for clinical purposes. Specimen Blood Resulting Agency Comment Performing Organization Information: Site ID: [id number] Name: [facility] Address: [address] [place] [address] Director: [place] Aden M.D. Performing Organization Address City/State/ZIP Code Phon e Number CHRISTINA [employer] [facility] [address] [place] [address] [phone] MARTINEZ Vitamin B6 level, plasma (02/07/2020 1:57 PM CDT) Vitamin B6 112.6 (H) 2.1 - 21.7 [facility] Comment: ng/mL KENDALL MARTINEZ Vitamin supplementation within 24 hours prior to blood draw may affect the accuracy of results. This test was developed and its analytical performance characteristics have been determined by [facility]. It has not been cleared or approved by [facility] FDA. This assay has been validated pursuant to the CLI A regulations and is used for clinical purposes. Specimen Blood Resulting Agency Comment Performing Organization Information: Site ID: [facility] Name: [facility] Address: [id number] [place] [id number] Director: [place] Aden M.D. Performing Organization Address [facility] e [facility] [place] [address] MARTINEZ Copper level, serum (01/21/2020 12:00 AM CDT)Only the most recent of2 results within the time period is included. Copper 113 70 - 175 [employer] Comment: mcg/dL KENDALL MARTINEZ This test was developed and its analytical performance characteristics have been determined by [facility]. It has not been cleared or approved by [facility]. This assay has been validated pursuant to the CLI A regulations and is used for clinical purposes. Specimen Blood Narrative Performed At FASTING:YES [facility] FASTING: YES Resulting Agency Comment Performing Organization Information: Site ID: [facility] Name: [facility] Address: [address] [place] [address] Director: [place] Aden M.D. Performing Organization Address [facility] e Number [employer] [address] MARTINEZ Zinc level, serum (01/21/2020 12:00 AM CDT)Only the most recent of2 results within the time period is included. Zinc 126 60 - 130 [facility] Comment: mcg/dL KENDALL MARTINEZ This test was developed and its analytical performance characteristics have been determined by [facility]. It has not been cleared or approved by [facility] FDA. This assay has been validated pursuant to the CLI A regulations and is used for clinical purposes. Specimen Blood Narrative Performed At FASTING:YES [facility] FASTING: YES Resulting Agency Comment Performing Organization Information: Site ID: [facility] Name: [employer] [facility] us Address: [address] [place] [address] Director: Lake Aden M.D. Performing Organization Address [facility] Phon e Number CHRISTINA [employer] ISABEL [facility] [id number] [place] [id number] [place] Vitamin A level, plasma or serum (01/21/2020 12:00 AM CDT)Only the most recent of2 resultswithin the time period is included. Vitamin A 59 38 - 98 [facility] (retinol) Comment: mcg/dL [facility] MICHELLE [employer] Chem Vol. 34.No.8. [id number]. 1998 Vitamin supplementation within 24 hours prior to blood draw may affect the accuracy of results. This test was developed and its analytical performance characteristics have been determined by [facility]. It has not been cleared or approved by [facility] FDA. This assay has been validated pursuant to the CLI A regulations and is used for clinical purposes. Specimen Blood Narrative Performed At FASTING:YES [facility] FASTING: YES Resulting Agency Comment Performing Organization Information: Site ID: [facility] Name: [employer] Address: [id number] [place] [phone] Director: Lake Aden M.D. Performing Organization Address [facility] Phon e Number [employer] ISABEL [place] [address] [place] [address] BILLINGS Vitamin D 25 hydroxy level (01/21/2020 12:00 AM CDT)Only the most recent of2 resultswithin the time period is included. Vitamin D, 31 30 - 100 [facility] 25-hydroxy Comment: ng/mL DOROTHY Vitamin D Status 25-OH Vitamin D: Deficiency: <20 ng/mL Insufficiency: 20 - 29 ng/mL Optimal: > or = 30 ng/mL For 25-OH Vitamin D testing on patients on D2-supplementation and patients for whom quantitation of D2 and D3 fractions is required, the QuestAssureD(T M) 25-OH VIT D, (D2,D3), LC/MS/MS is recommended: order code 32619 (patients >2yrs). See Note 1 Note 1 For additional information, please refer to http://education.SenGenix/faq/HPN524 (This link is being provided for informational/ educational purposes only.) Specimen Blood Narrative Performed At FASTING:YES [facility] FASTING: YES Resulting Agency Comment Performing Organization Information: Site ID: [facility] Name: [facility] Address: [address] [place] [phone] Director: Elvis French Performing Organization Address [facility] Phon e Number [place] [address] Hemoglobin A1c (01/21/2020 12:00 AM CDT)Only the most recent of2 resultswithin the time period is included. Hemoglobin A1C 5.5 <5.7 % of [facility] Comment: total Hgb DE LA CRUZ For the purpose of screening for the presence of diabetes: <5.7% Consistent with the absence of diabetes 5.7-6.4% Consistent with increased risk for diabe romero (prediabetes) > or =6.5% Consistent with diabetes This assay result is consistent with a decreased risk of diabetes. Currently, no consensus exists regarding use of hemoglobin A1c for diagnosis of diabetes in children. According to [place] Diabetes Association (ADA) guidelines, hemoglobin A1c <7.0% represents optimal control in non- diabetic patients. Different metrics may apply to specific patient populations. Standards of Medical Care in Diabetes(ADA). Specimen Blood Narrative Performed At FASTING:YES [facility] FASTING: YES Resulting Agency Comment Performing Organization Information: Site ID: [facility] Name: [facility] Address: [address] [place] [phone] Director: Elvis French Performing Organization Address [facility] Phon e Number [employer] [place] [phone] Folate level (01/21/2020 12:00 AM CDT)Only the most recent of2 resultswithin the time period is included. Pathologist Sig nature Folate >24.0 ng/mL [facility] Comment: [facility] Reference Rang e Low: <3.4 Borderline: 3.4-5.4 Normal: >5.4 Specimen Blood Narrative Performed At FASTING:YES [facility] FASTING: YES Resulting Agency Comment Performing Organization Information: Site ID: [facility] Name: [facility] Address: [address] [place] [phone] Director: Elvis French Performing Organization Address [facility] [place] [place] [address] Vitamin B12 level (01/21/2020 12:00 AM CDT)Only the most recent of2 results within the time period is included. Pathologist Sig [facility] Vitamin B12 >2000 (H) 200 - 1100 pg/mL [employer] [facility] Specimen Blood Narrative Performed At FASTING:YES [facility] FASTING: YES Resulting Agency Comment Performing Organization Information: Site ID: [facility] Name: [facility] Address: [address] [place] [phone] Director: Elvis French Performing Organization Address [facility] [place] [place] [address] Total iron binding capacity (09/02/2019 7:07 AM CDT) Pathologist Sig [facility] Iron level 81 45 - 160 mcg/dL [employer] [facility] Iron binding capacity 349 250 - 450 mcg/dL [facility] CS (calc) [facility] Iron saturation 23 16 - 45 % (calc) [facility] [employer] [place] Specimen Blood Narrative Performed At FASTING:YES [facility] FASTING: YES Resulting Agency Comment Performing Organization Information: Site ID: [facility] Name: [facility] Address: [address] [place] [phone] Director: Elvis French Performing Organization Address [facility] Phon e Number [place] [address] CBC with platelet and differential (09/02/2019 7:07 AM CDT) Pathologist Sig nature WBC 8.2 3.8 - 10.8 [facility] Thousand/uL [facility] RBC 4.56 3.80 - 5.10 [facility] Million/uL [facility] HGB 13.5 11.7 - 15.5 [facility] g/dL [facility] HCT 41.3 35.0 - 45.0 % [facility] [place] MCV 90.6 80.0 - 100.0 fL [facility] [place] MCH 29.6 27.0 - 33.0 pg [facility] [place] MCHC 32.7 32.0 - 36.0 [facility] g/dL [facility] RDW 14.7 11.0 - 15.0 % [facility] [place] Platelet count 194 140 - 400 [facility] Thousand/uL [facility] MPV 12.4 7.5 - 12.5 fL [facility] [place] Neutrophils, absolute 6,150 1,500 - 7,800 [facility] cells/uL [facility] Lymphocytes, absolute 1,320 850 - 3,900 [facility] cells/uL [place] Monocytes, absolute 549 200 - 950 [facility] cells/uL [place] Eosinophils, absolute 139 15 - 500 [facility] cells/uL [place] Basophils, absolute 41 0 - 200 [facility] cells/uL [place] Neutrophils 75 % [facility] [place] Lymphocytes 16.1 % [facility] [place] Monocytes 6.7 % [facility] [place] Eosinophils 1.7 % [facility] [place] Basophils + RC 0.5 % [facility] [place] Specimen Blood Narrative Performed At FASTING:YES [facility] FASTING: YES Resulting Agency Comment Performing Organization Information: Site ID: [facility] Name: [facility] Address: [address] [place] [phone] Director: Elvis French Performing Organization Address [facility] Phon e Number [employer] [place] [phone] T3 (09/02/2019 7:07 AM CDT) Pathologist Sig nature T3 93 76 - 181 ng/dL [employer] [facility] Specimen Blood Narrative Performed At FASTING:YES [facility] FASTING: YES Resulting Agency Comment Performing Organization Information: Site ID: [facility] Name: [facility] Address: [address] [place] [phone] Director: Elvis French Performing Organization Address [facility] Phon e [place] [address] Thyroid stimulating hormone (09/02/2019 7:07 AM CDT) Pathologist Sig nature TSH 3.06 0.40 - 4.50 mIU/L [facility] [employer] [place] Specimen Blood Narrative Performed At FASTING:YES [facility] FASTING: YES Resulting Agency Comment Performing Organization Information: Site ID: [facility] Name: [facility] Address: [address] [place] [phone] Director: Elvis French Performing Organization Address City/[facility] Phon e Number [employer] [place] [phone] T4, free (09/02/2019 7:07 AM CDT) Pathologist Sig nature T4, free 0.8 0.8 - 1.8 ng/dL [employer] [facility] Specimen Blood Narrative Performed At FASTING:YES [facility] FASTING: YES Resulting Agency Comment Performing Organization Information: Site ID: [facility] Name: [facility] Address: [address] [place] [phone] Director: Elvis French Performing Organization Address [facility] Phon e [place] [place] [address] Parathyroid hormone (09/02/2019 7:07 AM CDT) PTH 41 14 - 64 pg/mL [facility] Comment: JAVIER Quintero II Interpretive Guide Intact PTH Calc ium ---- --- Normal Parathyroid Normal No rmal Hypoparathyroidism Low or Low Normal Low Hyperparathyroidism Primary Normal or High H igh Secondary High Normal or Low Tertiary High High Non-Parathyroid Hypercalcemia Low or Low Normal High Specimen Blood Narrative Performed At FASTING:YES [facility] FASTING: YES Resulting Agency Comment Performing Organization Information: Site ID: IG [facility]: [facility] Address: [address] [place] [phone] Director: Dr. Elvis romero Performing Organization Address [facility] Phon e Number [facility] [address] [place] [address]. [place] [address] Ferritin level (09/02/2019 7:07 AM CDT) Pathologist Sig nature Ferritin level 27 16 - 288 ng/mL [facility] [employer] [place] Specimen Blood Narrative Performed At FASTING:YES [facility] FASTING: YES Resulting Agency Comment Performing Organization Information: Site ID: [facility] Name: [facility] Address: [address] [place] [phone] Director: Elvis French Performing Organization Address [facility] Phon e Number [employer] [place] [address] [place] [phone] Lipid panel (09/02/2019 7:07 AM CDT) Cholesterol, total 89 <200 mg/dL [facility] HDL cholesterol 49 (L) > OR = 50 [facility] mg/dL [facility] Triglycerides 70 <150 mg/dL [employer] [facility] LDL cholesterol 25 mg/dL (calc) [employer] calculated Comment: [facility] Reference range: <100 Desirable range <100 mg/dL for primary prevention; <70 mg/dL for patients with CHD or diabetic patients with > or = 2 CHD risk factors. LDL-C is now calculated using the Princess calculation, which is a validated novel method providi ng better accuracy than the Friedewald equation in the estimation of LDL-C. Osvaldo ZUÑIGA et al. [place]. 2013;310(19): 3353-6223 (http://education.Recommendo.ICON Aircraft/faq/FLC265) Cholesterol/HDL 1.8 <5.0 (calc) [facility] ratio [facility] Non-HDL cholesterol 40 <130 mg/dL [employer] Comment: (calc) [facility] For patients with diabetes plus 1 major ASCVD risk factor, treating to a non-HDL-C goal of <100 mg/dL (LDL-C of <70 mg/dL) is considered a therapeutic option. Specimen Blood Narrative Performed At FASTING:YES [facility] FASTING: YES Resulting Agency Comment Performing Organization Information: Site ID: [facility] Name: [facility] Address: [address] [place] [phone] Director: Elvis French Performing Organization Address [facility] Phon e Number [employer] [place] [address] [place] [address] Comprehensive metabolic panel (09/02/2019 7:07 AM CDT) Glucose 67 65 - 99 [facility] Comment: mg/dL [facility] Fasting reference interval BUN 24 7 - 25 mg/dL [facility] [place] Creatinine 0.77 0.60 - 0.93 [facility] Comment: mg/dL [facility] For patients >49 years of age, the reference limit for Creatinine is approximately 13% higher for people identified as -Portuguese. EGFR Non-Afr. 75 > OR = 60 [facility] Portuguese mL/min/1.73m [facility] 2 EGFR 87 > OR = 60 [facility] Portuguese mL/min/1.73m [facility] 2 BUN/creatinine NOT APPLICABLE 6 - 22 [facility] ratio (calc) [facility] Sodium 143 135 - 146 [facility] mmol/L [facility] Potassium 4.5 3.5 - 5.3 [facility] mmol/L [facility] Chloride 106 98 - 110 [facility] mmol/L [facility] CO2 31 20 - 32 [facility] mmol/L [facility] Calcium 9.8 8.6 - 10.4 [facility] mg/dL [facility] Protein 7.0 6.1 - 8.1 [facility] g/dL [facility] Albumin, S 3.9 3.6 - 5.1 [facility] g/dL [place] Globulin, total 3.1 1.9 - 3.7 [facility] g/dL (calc) [facility] Albumin/globulin 1.3 1.0 - 2.5 [facility] ratio (calc) [facility] Total bilirubin 0.9 0.2 - 1.2 [facility] mg/dL [facility] Alkaline 62 37 - 153 U/L [facility] phosphatase [facility] AST 26 10 - 35 U/L [facility] ALT 30 (H) 6 - 29 U/L [facility] Specimen Blood Narrative Performed At FASTING:YES [facility] FASTING: YES Resulting Agency Comment Performing Organization Information: Site ID: [facility]: [facility] Address: [address] [place] [phone] Director: Elvis French Performing Organization Address City/State/ZIP Code Phon e Number [employer] [place] [address] [place] [address] [phone] after 03/31/2019 Insurance Payer Benefit Plan / Subscriber ID Effective Dates Phone Addre ss Type Group MEDICARE MEDICARE PART A [id number] 2007-Present [place], [place] Medicare AND B BCBS BCBS CHOICE [id number] 2015-Present P [place] [address] Advance Directives For more information, please contact: [phone] Type Date Recorded Patient Financial Reporting Consultant Explanati on Advance Directives, Living Will 12/15/2018 6:00 AM and 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
--- OUTSIDE RECORDS SUMMARY | 2020-03-31 08:34 | XMS REPORT | Clinical Summary ---
:1940 Author Organization [facility] Address [address] [place] [address] Care Team Providers Name Role Phone Slime Richardson DO Primary Care Provider Allergies No Known Allergies Medications Medication Sig Dispensed Refills Start Date End Date Status insulin glargine Inject 50 Units 0 Active (TOUJEO SOLOSTAR) subcutaneously 300 unit/mL (1.5 nightly . mL) InPn syringe insulin aspart Inject 10 Units 0 Active (NOVOLOG) 100 subcutaneously 3 unit/mL injection (three) times daily before meals. cycloSPORINE Place 1 drop into 0 Active (RESTASIS) 0.05 % both eyes 2 (two) ophthalmic emulsion times daily. latanoprost Place 1 drop into 0 Active (XALATAN) 0.005 % both eyes nightly. ophthalmic solution fluticasone Inhale 2 puffs by 0 Active (FLOVENT DISKUS) 50 mouth via inhaler mcg/actuation daily. diskus inhaler clonazePAM Take 1 mg by mouth 0 Active (KLONOPIN) 1 MG nightly. tablet ibandronate Take 150 mg by mouth 0 Active (BONIVA) 150 mg every 30 (thirty) tablet days Take in AM with glass of water prior to food, don't lie down for 30 minutes. . tiotropium-olodater Inhale 2 puffs by 0 Active ol (STIOLTO mouth via inhaler RESPIMAT) 2.5-2.5 daily. mcg/actuation Mist lisinopril Take 20 mg by mouth 0 Active (PRINIVIL,ZESTRIL) daily. 20 MG tablet omeprazole Take 40 mg by mouth 0 Active (PRILOSEC) 40 MG daily. capsule simvastatin (ZOCOR) Take 20 mg by mouth 0 Active 20 MG tablet nightly. gabapentin Take 300 mg by mouth 0 Active (NEURONTIN) 300 MG 3 (three) times capsule daily. DULoxetine Take 60 mg by mouth 0 Active (CYMBALTA) 60 MG daily. capsule montelukast Take 10 mg by mouth 0 Active (SINGULAIR) 10 mg nightly. tablet albuterol HFA Inhale 2 puffs by 0 Active (VENTOLIN HFA) 90 mouth via inhaler mcg/actuation every 4 (four) hours inhaler as needed for Wheezing. diclofenac Take 75 mg by mouth 2 0 Active (VOLTAREN) 75 MG EC (two) times daily. tablet econazole nitrate Apply topically 2 0 Active (SPECTAZOLE) 1 % (two) times daily. cream urea (CARMOL) 40 % Apply topically 2 0 Active Crea topical cream (two) times daily. azelaic acid Apply topically 0 A ctive (FINACEA) 15 % Foam daily. L. Take 1 capsule by 0 Ac tive ACIDOPHILUS/BIFIDO mouth daily. LONGUM (PROBIOTIC PEARLS ORAL) magnesium oxide Take 400 mg by mouth 0 Active (MAG-OX) 400 mg daily. tablet CINNAMON BARK Take 1,000 mg by 0 Active (CINNAMON ORAL) mouth daily. coenzyme Q10 200 mg Take 200 mg by mouth 0 Active capsule daily. b complex vitamins Take 1 tablet by 0 Active tablet mouth daily. niacin 500 MG CR Take 500 mg by mouth 0 Active capsule 2 (two) times daily. APPLE CIDER VINEGAR Take 450 mg by mouth 0 Active ORAL 2 (two) times daily. turmeric root Take 1 capsule by 0 Active extract 500 mg Cap mouth 2 (two) times daily. garlic 1,000 mg Cap Take 1 capsule by 0 Active mouth 2 (two) times daily. multivitamin Take 1 capsule by 0 Active capsule mouth daily. omega-3 fatty Take 1 capsule by 0 Active acids-fish oil mouth daily. (FISH OIL) 360-1,200 mg Cap cholecalciferol, Take 5,000 Units by 0 Active vitamin D3, 5,000 mouth daily. unit Tab melatonin 10 mg Tab Take 1 tablet by 0 Active mouth nightly. liraglutide 0.6 Inject 1.8 mg 0 Active mg/0.1 mL (18 mg/3 subcutaneously daily mL) PnIj with breakfast. Active Problems Problem Noted Date Arthritis of right hip 09/25/2017 Social History Tobacco Use Types Packs/Day Years Used Date Former Smoker 1 10 Quit: 1976 Smokeless Tobacco: Never Used Alcohol Use Drinks/Week oz/Week Comments No Sex Assigned at Date Recorded Not on file Last Filed Vital Signs Not on file Plan of Treatment Health Maintenance Due Date Last Done Comments PNEUMOCOCCAL 65+ YRS (1 of 1 - [id number]) 12/22/2007 MEDICARE ANNUAL WELLNESS (YEAR 2 or FIRST YEAR if no 12/14/2008 IPPE) INFLUENZA VACCINE (#1) 2019 Implants Implanted Type Area Manager School Device Shelf Model / Identifier Expiration Serial / Lot Date Shell Acet 3h 52mm [id number] - [id number] Joints Right: BIOMET 08/26/[id number] / Implanted: Qty: 1 on 09/25/2017 by Junior Davis Jr., MD at [facility] Hip / [id number] Scr Acet St Tril 6.5x30mm [id number] - [id number] Joints Right: CHECO:CHECO 11/11/[id number] / Implanted: Qty: 1 on 09/25/2017 by Junior Davis Jr., MD at [facility] Hip / [id number] Stem Ml-Tpr Kinectv Sz-11.0 - [id number] Joints Right: CHECO: CHECO 07/13/2027 [id number] / Implanted: Qty: 1 on 09/25/2017 by Junior Davis Jr., MD at [facility] Hip / [id number] Neutral E1 Liner 36mm E - [id number] Joints Right: BIOMET 06/28/2022 [id number] / Implanted: Qty: 1 on 09/25/2017 by Junior Davis Jr., MD at [facility] Hip / [id number] Head Fem Ceram Biolox Delta 36 [id number] - [id number] Joints Right: CHECO:CHECO 12/12/2026 [id number] / Implanted: Qty: 1 on 09/25/2017 by Junior Davis Jr., MD at [facility] Hip / [id number] Neck Fem Ml-Tpr Kinectv Sz-G [id number] - [id number] Joints Right: CHECO:CHECO 08/12/2027 [id number] / Implanted: Qty: 1 on 09/25/2017 by Junior Davis Jr., MD at [facility] Hip / [id number] Results Not on fileafter 03/31/2019 Insurance Payer Benefit Plan Subscriber ID Effective Phone Address Typ e / Group Dates MEDICARE MEDICARE A B [id number] 2007-Geoff rios nt BLUE BCBS FED [id number] 2015-Geoff [phone] [address]PO CROSS/BLUE nt [id number] [place] [address] Advance Directives For more information, please contact: [phone] Code Status Date Activated Date Inactivated Comments Full Code 09/25/2017 8:57 PM 09/27/2017 3:15 PM This code status was determined by: Patient Full Code 09/25/2017 9:50 AM 09/25/2017 8:57 PM This code status was determined by: Patient
--- OUTSIDE RECORDS SUMMARY | 2020-03-31 08:36 | XMS REPORT | Continuity of Care Document ---
:1940 Author Organization [facility] t Address [address] [place] [address] Care Team Providers Name Role Phone Slime Richardson DO Primary Care Physician Anton JACKSON Attending Clinician Lara ALEX Attending Clinician Ngozi Smith NP Attending Clinician Diallo AMOR Attending Clinician Unavailable Devin Guzman Attending Clinician Micha AMOR Attending Clinician Unavailable ANUPAM LESLIE Attending Clinician Unavailable ANTON Admitting Clinician Unavailable ANUPAM LESLIE Admitting Clinician Unavailable Payers Payer Name Policy Type Policy Effective Date Expiration Date Sour ce Number MEDICAREMEDICARE PART [id number] 2007 [place] AND 00:00:00 [facility] [place] [id number] 2007- GUILHERME RivasMedicare BCBSBCBS CHOICE [id number] 2015 [place] PPO/FEDERAL EMPL 00:00:00 Methodis t [id number] 2015- PresentPPO Problems Condition Condition Condition Status Onset Resolution Last Treating Co mments Source Name Details Category Date Date Treatment Clinician Date Gastroesop Gastroesop Disease Active 2018-04 [place] hageal hageal 2-13 Methodi reflux reflux 00:00: st disease disease 00 with with esophagiti esophagiti s s Epigastric Epigastric Disease Active 2018-04 [place] pain pain 0-08 [facility] 00:00: st 00 Obesity Obesity Disease Active 2018-04 [place] 0-08 [facility]i 00:00: st 00 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 Family History Family Member Diagnosis Comments Start Date Stop Date Source Natural father Heart attack [place] [facility] Natural mother No Known Problems Joan carmella L[facility] Day Social History Social Habit Start Date Stop Date Quantity Comments Source History of tobacco Current smoker Jr causey use [facility] Day History [facility] Alcohol Std Drinks Method ist History [facility] Alcohol Binge [facility] Sex Assigned At [place] [facility] Tobacco use and 2019-09-14 2019-09-14 Never used [place] exposure 00:00:00 00:00:00 [facility] Alcohol intake 2019-09-14 2019-09-14 Current drinker of Jr causey 00:00:00 00:00:00 alcohol (finding) [facility] 2019-03[facility]17 [facility] History SDOH 2018-06-30 2018-06-30 4 [place] Alcohol Frequency 00:00:00 00:00:[address] Cigarettes smoked 2017-09-26 2017-09-[address] [facility] - current (pack per 00:00:00 00:00:00 [facility] Center day) - Reported Cigarette 2017-09-26 2017-09-[address] [facility] - pack-years 00:00:00 00:00:00 Medical Center Smoking Status Start Date Stop Date Source Former smoker 2019-09-14 00:00:00 2019-09-14 00:00:00 Bong [facility] Medications Ordered Filled Start Stop Current Ordering Indication Dosage Frequency Signature Comments Components Source Medication Medication Date Date Medication? Clinician (SIG) Name Name CINNAMON 2020-0 Yes 1000mg QD Take 1,000 [place] BARK ORAL 6-02 mg by Methodi 11:01: mouth st 48 daily. cycloSPORIN 2020-0 Yes 5% QD Apply 5 % [place] E 6-02 to eye Methodi (RESTASIS) 11:01: daily. st 0.05 % 48 ophthalmic emulsion biotin 1 mg 2020-0 Yes 1mg QD Take 1 mg [place] capsule 6-02 by mouth Methodi 11:01: daily. st 48 clonAZEPAM 2020-0 Yes 1mg QD Take 1 mg [place] (KlonoPIN) 6-02 by mouth Metho di 1 MG tablet 11:01: daily. st 48 coenzyme 2020-0 Yes 10mg QD Take 10 mg Joan ston Q10 (CO 6-02 by mouth Methodi Q-10) 10 mg 11:01: daily. st capsule 48 donepezil 2020-0 Yes 5mg QD Take 5 mg Joan ston (ARICEPT) 5 6-02 by mouth Meth escobar MG tablet 11:01: nightly. st 48 DULoxetine 2020-0 Yes 60mg QD Take 60 mg [place] (CYMBALTA) 6-02 by mouth Metho di 60 MG 11:01: daily. st capsule 48 budesonide 2020-0 Yes 6mg Q.[id number] Take 6 mg Woody EC -02 [id number] by mouth 3 Met hodi (ENTOCORT 11:01: 3D (three) st EC) 3 mg 24 48 times a hr capsule day. omega 2020-0 Yes 1000mg QD Take 1,000 [place] 3-dha-epa-f 6-02 mg by Methodi arnoldo oil 11:01: mouth st (FISH OIL) 48 daily. 1,000 mg (120 mg-180 mg) capsule gabapentin 2020-0 Yes 300mg Q.[id number] Take 300 Woody (NEURONTIN) 6-02 [id number] mg by M ethodi 300 mg 11:01: 3D mouth 3 st capsule 48 (three) times a day. garlic 1 mg 2020-0 Yes 1mg QD Take 1 mg [place] capsule 6-02 by mouth Methodi 11:01: daily. st 48 ibandronate 2020-0 Yes 150mg Q30D Take 150 [place] (BONIVA) 6-02 mg by Methodi 150 mg 11:01: mouth st tablet 48 every 30 (thirty) days. Take in AM with glass of water prior to food, don't lie down for 30 minutes. latanoprost 2020-0 Yes 1[drp] QD Administer Woody (XALATAN) 6-02 1 drop to Metho di 0.005 % 11:01: both eyes st ophthalmic 48 nightly. solution lisinopril 2020-0 Yes 20mg QD Take 20 mg [place] (PRINIVIL,Z 6-02 by mouth Meth escobar ESTRIL) 20 11:01: daily. st mg tablet 48 magnesium 2020-0 Yes 400mg QD Take 400 Joan ston oxide 6-02 mg by Methodi (MAG-OX) 11:01: mouth st 400 mg 48 daily. (241.3 mg magnesium) tablet melatonin 3 2020-0 Yes 3mg QD Take 3 mg [place] mg tablet 6-02 by mouth Method i 11:01: nightly. st 48 memantine 2020-0 Yes 10mg Q.5D Take 10 mg [place] (NAMENDA) 6-02 by mouth 2 Meth escobar 10 MG 11:01: (two) st tablet 48 times a day. montelukast 2020-0 Yes 10mg QD Take 10 mg Woody (SINGULAIR) 6-02 by mouth Meth escobar 10 mg 11:01: nightly. st tablet 48 multivitami 2020-0 Yes 1{tbl} QD Take 1 [place] n with 6-02 tablet by Methodi minerals 11:01: mouth st tablet 48 daily. niacin 500 2020-0 Yes 500mg QD Take 500 [place] MG tablet 6-02 mg by Methodi 11:01: mouth st 48 daily with breakfast. omeprazole 2020-0 Yes 40mg QD Take 40 mg [place] (PriLOSEC) 6-02 by mouth Metho di 40 MG 11:01: daily. st capsule 48 oxybutynin 2020-0 Yes 5mg Q.5D Take 5 mg [place] (DITROPAN) 6-02 by mouth 2 Met hodi 5 MG tablet 11:01: (two) st 48 times a day. simvastatin 2020-0 Yes 20mg QD Take 20 mg Woody (ZOCOR) 20 6-02 by mouth Metho di MG tablet 11:01: nightly. st 48 tiotropium- 2020-0 Yes QD Take 2 [place] olodaterol 6-02 inhalation Met varinder (STIOLTO 11:01: s by mouth st RESPIMAT) 48 once 2.5-2.5 daily. mcg/actuati on inhalation solution b complex 2020-0 Yes 1{tbl} QD Take 1 [place] vitamins 6-02 tablet by Method i tablet 11:01: mouth st 48 daily. cholecalcif 2020-0 Yes 1000U QD Take 1,000 [place] cristi, 6-02 Units by Methodi vitamin D3, 11:01: mouth st (VITAMIN 48 daily. D3) 1,000 unit capsule turmeric 2020-0 Yes 1{capsu QD Take 1 [place] root 6-02 le} capsule by Methodi extract 500 11:01: mouth st mg capsule 48 daily. liraglutide 2020-0 Yes QD Inject [place] (VICTOZA) 6-02 under the Metho di 0.6 mg/0.1 11:01: skin daily s t mL (18 mg/3 48 with mL) pen breakfast. injector fluticasone 2020-0 Yes 2{spray QD 2 sprays [place] propionate 6-02 } by Each Method i (FLONASE) 11:01: Nare route st 50 48 nightly. mcg/actuati on nasal spray NovoFine NovoFine 2020-0 Yes Na Richardson as [facility] Plus Plus 2-12 directed [facility] - 00:00: Memoria 00 l Outpati ent Clinics cyanocobala 2020-0 Yes Malabsorpti 1000ug Woody min 1-14 on due to Methodi injection 14:15: intolerance s t 1,000 mcg 00 , not elsewhere classified syringe 2020-0 Yes Malabsorpti 20{syri 20 Woody with needle 1-14 on due to nge} Syringes Methodi 3 mL 25 x 00:00: intolerance take as st 5/8" 00 , not directed syringe elsewhere (As classified directed). HYDROcodone 2018-04- No acute pain 10mL Q6H Take 10 mL Woody -acetaminop 2-19 12-24 by mouth Met varinder hen (HYCET) 00:00: 23:[address] 2.5-108.3 00 :00 (six) mg/5 mL hours as solution needed for severe pain for up to 5 days .acute pain. Max Daily Amount: 40 mL insulin 2018-04- No 6U Q.[id number] Inject 6 [facility] ASPART 06-01 [id number] Units Metho di (NovoLOG 16:48: 00:[address] Flexpen 30 :00 skin 3 U-100 (three) Insulin) times a 100 unit/mL day with insulin pen meals. insulin 2018-04- No 50U QD Inject 50 [place] GLARGINE 06-01 Units Methodi (TOUJEO 16:48: 00:[address] SOLOSTAR 30 :00 skin U-300 daily. INSULIN) 300 unit/mL (1.5 mL) insulin pen inFLIXimab 2018-04 No Infuse [place] (REMICADE) 06-01 into a Method i 100 mg 16:48: 00:[address] injection 30 :00 catheter. ondansetron 2018-04- No 4mg Q8H Take 1 Joan ston (ZOFRAN) 4 06-0117 tablet (4 Met hodi MG tablet 00:00: 23:59 mg total) st 00 :00 by mouth every 8 (eight) hours as needed for nausea or vomiting for up to 30 days. enoxaparin 2018-04- No 30mg QD Inject 0.3 Woody (LOVENOX) 06-01 mL (30 mg Meth escobar 40 mg/0.4 00:00: 23:59 total) st mL syringe 00 :00 under the skin daily for 14 days. HYDROcodone 2018-04- No acute pain 1{tbl} Q6H Take 1 Woody -acetaminop 2-18 12-18 tablet by Me cheung hen ([employer] (MXD3D)) 00:00: 00:[address] 5-325 mg 00 :00 every 6 per tablet (six) hours as needed for moderate pain for up to 7 days .acute pain. Max Daily Amount: 4 tablets HYDROcodone 2018-04- No acute pain 1{tbl} Q6H Take 1 Woody -acetaminop 2-18 12-18 tablet by Searchlesodi hen ([employer] (MXD3D)) 00:00: 00:[address] 5-325 mg 00 :00 every 6 per tablet (six) hours as needed for moderate pain for up to 7 days .acute pain. Max Daily Amount: 4 tablets metoprolol 2018-04- No 12.5mg Q.5D Take 0.5 [place] tartrate 2-17 01-16 tablets Methodi (LOPRESSOR) 00:00: 23:59 (12.5 mg s t 25 mg 00 :00 total) by tablet mouth 2 (two) times a day for 30 days. metoprolol 2018- No 25mg QD Take 25 mg [facility] succinate 5-08 12-18 by mouth Metho di XL 00:00: 00:[address] (TOPROL-XL) 00 :00 25 mg 24 hr tablet methotrexat Yes 2.5mg Take 2.5 [place] e 2.5 MG 5-07 mg by Methodi tablet 00:00: mouth. st 00 folic acid Yes 1mg QD Take 1 mg Ho padilla (FOLVITE) 1 5-06 by mouth Meth escobar MG tablet 00:00: daily. st 00 insulin Yes 50U QD Inject 50 [facility] glargine 6-16 Units [facility] - (TOUJEO 13:15: subcutaneo Medi jerod SOLOSTAR) 32 usly Center 300 unit/mL nightly . (1.5 mL) InPn syringe insulin Yes 10U Inject 10 [facility] aspart 6-16 Units [facility] - (NOVOLOG) 13:15: subcutaneo Me dical 100 unit/mL 32 usly 3 Center injection (three) times daily before meals. cycloSPORIN Yes 1[drp] Q.5D Place [address] E 6-16 drop into [facility] - (RESTASIS) 13:15: both eyes Me dical 0.05 % 32 2 (two) Center ophthalmic times emulsion daily. latanoprost Yes 1[drp] QD Place [address] (XALATAN) 6-16 drop into [facility] - 0.005 % 13:15: both eyes Medic al ophthalmic 32 nightly. Cente r solution fluticasone Yes 2{puff} QD Inhale [address] (FLOVENT 6-16 puffs by [facility] - DISKUS) 50 13:15: mouth via Me dical mcg/actuati 32 inhaler Cente r on diskus daily. inhaler clonazePAM 2017-0 Yes 1mg QD Take [address] (KLONOPIN) 6-16 by mouth [facility] - 1 MG tablet 13:15: nightly. Me dical 32 Center ibandronate 2017-0 Yes 150mg Take [address] (BONIVA) 6-16 mg by [facility] - 150 mg 13:15: mouth Medical tablet 32 every 30 Center (thirty) days Take in AM with glass of water prior to food, don't lie down for 30 minutes. . tiotropium- 2017-0 Yes 2{puff} QD Inhale [address] olodaterol 6-16 puffs by [facility] - (STIOLTO 13:15: mouth via [facility] RESPIMAT) inhaler [place] 2.5-2.5 daily. mcg/actuati on Mist lisinopril 0 Yes 20mg QD Take [address] (PRINIVIL,Z 6-16 by mouth Luke s - ESTRIL) 20 13:15: daily. Medic al MG tablet 32 Center omeprazole 0 Yes 40mg QD Take [address] (PRILOSEC) 6-16 by mouth [facility] - 40 MG 13:15: daily. Medical capsule 32 Center simvastatin 0 Yes 20mg QD Take [address] (ZOCOR) 20 6-16 by mouth [facility] - MG tablet 13:15: nightly. [place] [id number] Center gabapentin 2017-0 Yes 300mg Q.[id number] Take [address] (NEURONTIN) 6-16 [id number] mg by L ukes - 300 MG 13:15: 3D mouth 3 Medical capsule 32 (three) Center times daily. DULoxetine 20180 Yes 60mg QD Take [address] (CYMBALTA) 6-16 by mouth [facility] - 60 MG 13:15: daily. Medical capsule 32 Center montelukast 2017-0 Yes 10mg QD Take [address] (SINGULAIR) 6-16 by mouth Luke s - 10 mg 13:15: nightly. Medical tablet 32 Center albuterol 2017-0 Yes 2{puff} Inhale [address] HFA 6-16 puffs by [facility] - (VENTOLIN 13:15: mouth via Med ical HFA) 90 32 inhaler Center mcg/actuati every 4 on inhaler (four) hours as needed for Wheezing. diclofenac 2018-0 Yes 75mg Q.5D Take [address] (VOLTAREN) 6-16 by mouth 2 Quinn es - 75 MG EC 13:15: (two) Medical tablet 32 times Center daily. econazole 2018-0 Yes Q.5D Apply [facility] nitrate 6-16 topically [facility] - (SPECTAZOLE 13:15: 2 (two) Med ical ) 1 % cream 32 times Center daily. urea 2018-0 Yes Q.5D Apply [facility] (CARMOL) 40 6-16 topically Quinn es - % Crea 13:15: 2 (two) Medical topical 32 times Center cream daily. azelaic 2018-0 Yes QD Apply [facility] acid 6-16 topically [facility] - (FINACEA) 13:15: daily. Medica l 15 % Foam 32 Center L. 2018-0 Yes 1{capsu QD Take [address] ACIDOPHILUS 6-16 le} capsule by Collette connolly - /BIFIDO 13:15: mouth Medical LONGUM 32 daily. [place] (PROBIOTIC PEARLS ORAL) magnesium 2018-0 Yes 400mg QD Take [address] oxide 6-16 mg by [facility] - (MAG-OX) 13:15: mouth Medical 400 mg 32 daily. Center tablet CINNAMON 2018-0 Yes 1000mg QD Take 1,[address] BARK 6-16 mg by [facility] - (CINNAMON 13:15: mouth Medical ORAL) 32 daily. Center coenzyme 2018-0 Yes 200mg QD Take [address] Q10 200 mg 6-16 mg by [facility] - capsule 13:15: mouth Medical 32 daily. [place] b complex 2018-0 Yes 1{tbl} QD Take [address] vitamins 6-16 tablet by [facility] - tablet 13:15: mouth Medical 32 daily. Center niacin 500 2018-0 Yes 500mg Q.5D Take [address] MG CR 6-16 mg by [facility] - capsule 13:15: mouth 2 Medical 32 (two) Center times daily. APPLE CIDER 2018-0 Yes 450mg Q.5D Take [address] VINEGAR 6-16 mg by [facility] - ORAL 13:15: mouth 2 Medical 32 (two) Center times daily. turmeric 2018-0 Yes 1{capsu Q.5D Take [address] root 6-16 le} capsule by [facility] - extract 500 13:15: mouth 2 Med ical mg Cap 32 (two) Center times daily. garlic Yes 1{capsu Q.5D Take [address] 1,000 mg 6-16 le} capsule by [facility] - Cap 13:15: mouth 2 Medical 32 (two) Center times daily. multivitami Yes 1{capsu QD Take [address] n capsule 6-16 le} capsule by Luke s - 13:15: mouth Medical 32 daily. [place] omega-3 Yes 1{capsu QD Take 1 [facility] fatty 6-16 le} capsule by LuKauli - acids-fish 13:15: mouth Medica l oil (FISH 32 daily. [place] OIL) 360-1,200 mg Cap cholecalcif Yes 5000U QD Take 5,[address] cristi, 6-16 Units by LuKauli - vitamin D3, 13:15: mouth Medic al 5,000 unit 32 daily. [place] Tab melatonin Yes 1{tbl} QD Take [address] 10 mg Tab 6-16 tablet by [facility]ukes - 13:15: mouth Medical 32 nightly. [place] liraglutide Yes 1.8mg Inject 1.[address] 0.6 mg/0.1 6-16 mg [facility] - mL (18 mg/3 13:15: subcutaneo Medical mL) PnIj 32 usly daily Cente r with breakfast. Latanoprost Latanoprost Yes Na Richardson [address] [address] [facility] - affected Memoria eye in the l evening Outpati ent Clinics Gabapentin Gabapentin Yes Na Richardson [address] [facility]pat[facility] Clinics Memantine Memantine Yes Na Richardson TAKE [address] HCl HCl TABLET BY [facility] - MOUTH Memoria TWICE l DAILY Outpati ent Clinics Oxybutynin Oxybutynin Yes Na Richardson [address] Chloride Chloride [facility] - Memoria l Outpat[facility] ent Clinics Vitamin D3 Vitamin D3 Yes Na Richardson one tab [facility] Clinics Ketoconazol Ketoconazol Yes Na Richardson [address] [facility] e e applicatio [facility] - n to Memoria affected l area Outpati ent Clinics BD Pen BD Pen Yes Na Richardson as [facility] Needle Vita Needle Vita directed [facility] - U/F U/F Memoria l Outpati ent Clinics Zofran ODT Zofran ODT Yes Na Richardson 1tablet [facility] Econazole Econazole Yes Na Richardson [address] Nitrate Nitrate applicatio Quinn es - n to Memoria affected l area Outpati ent Clinics Flonase Flonase Yes Na Richardson USE 2 [facility] SPRAYS IN [facility] - EACH Memoria NOSTRIL l DAILY Outpati ent Clinics Stiolto Stiolto Yes Na Richardson [address] Respimat Respimat [facility] - Memoria l Outpati ent Clinics Toukerrieo Toaylino Yes Na Richardson INJECT [facility] SoloStar SoloStar SUBCUTANEO L ukes - USLY 50 Memoria UNITS ONCE l DAILY Outpati ent Clinics Tylenol Tylenol Yes Na Richardson [address] as needed [facility] - [facility]pat[facility] Clin[facility] Fish Oil Fish Oil Yes Na Richardson [address] [facility] Clin[facility] Simvastatin Simvastatin Yes Na Richardson TAKE [address] TABLET BY [facility] - MOUTH EACH Memoria EVENING l ONCE DAILY Outpati ent Clinics Restasis Restasis Yes Na Richardson [address] [facility] - affected Memoria eye l Outpati ent Clinics Lisinopril Lisinopril Yes Na Richardson [address] [facility] Fluoxetine Fluoxetine Yes Na Richardson [address] HCl HCl [facility] - [facility]oria l [facility]pat[facility] ent Clinics ProAir HFA ProAir HFA Yes Na Richardson [address] [facility] needed [facility] - [facility]oria [facility]pat[facility] ent Clinics Prilosec Prilosec Yes Na Richardson TAKE [address] CAPSULE BY [facility] - MOUTH Memoria DAILY l Outpati ent Clinics Boniva Boniva Yes Na Richardson TAKE [address] [facility] TABLET(S) [facility] - BY MOUTH Memoria EVERY l MONTH Outpati ent Clinics Lisinopril Lisinopril Yes Na Richardson [address] [facility] NovoFine NovoFine Yes Na Richardson as [facility] directed [facility] - [facility]oria l Outpat[facility] ent Clinics Carafate Carafate Yes Na Richardson [address] at bedtime [facility] - on an Memoria empty l stomach Outpati before ent meals Clinics Clonazepam Clonazepam Yes Na Richardson [address] [address] on the [facility] - tongue and Memoria allow to l dissolve [facility] Donepezil Donepezil Yes Na Richardson TAKE [address] HCl HCl TABLET [facility]ics Toujeo Max Toujeo Max Yes Na Richardson [address] SoloStar SoloStar daily and Collette kes - increase Memoria by 2 units l every 3 Outpati days until ent fbg less Clinics 100 max of 30 units daily. Cymbalta Cymbalta Yes Na Richardson TAKE [address] CAPSULE [facility] - WITH A Memoria 30MG l CAPSULE TO Outpati EQUAL 90MG ent ONCE DAILY Clinics Super B Super B Yes Na Richardson not [facility] Complex/C Complex/C defined Collette kes - Memoria l [facility] Neurontin Neurontin Yes Na Richardson TAKE [address] CAPSULE BY [facility] - MOUTH 3 Memoria TIMES l DAILY [facility] Metoprolol Metoprolol Yes Na Richardson 1/[address] Succinate Succinate [facility] - ER ER Memoria l [facility] Terbinafine Terbinafine Yes Na Richardson [address] [facility] Victoza Victoza Yes Na Richardson INJECT [facility] 1.8MG [facility] - SUBCUTANEO Memoria USLYDAILY l [facility] Singulair Singulair Yes Na Richardson TAKE [address] TABLET BY [facility] - MOUTH IN [facility] THE l EVENING [facility] Melatonin Melatonin Yes Na Richardson as [facility] ER ER directed [facility] - Memoria l [facility] Cymbalta Cymbalta Yes Na Richardson TAKE [address] CAPSULE BY [facility] - MOUTH Memoria DAILY WITH l 60 MG TO Outpati EQUAL 90 ent MG Clinics NovoLog NovoLog Yes Na Richardson INJECT [address] Flexpen Flexpen UNITS [facility] - BEFORE Memoria EACH MEAL l (3 TIMES A Outpati DAY). MAX ent DOSE: 45 Clinics UNITS Aspir-81 Aspir-81 Yes Na Richardson [address] [facility] - [facility] l [facility] Montelukast Montelukast Yes Na Richardson TAKE [address] [facility] Sodium Sodium TABLET BY [facility] EVENING Outpati ent Clinics Remicade Remicade Yes Na Richardson as [facility] directed [facility] Budesonide Budesonide Yes Na Richardson as [facility] directed [facility] - Memoria l [facility] Clonazepam Clonazepam Yes Na Richardson [address] [facility] - [facility] l [facility] Simvastatin Simvastatin Yes Na Richardson [address] [facility] in the [facility] - evening [facility] Clinics Flonase Flonase Yes Na Richardson USE 2 [facility] Allergy Allergy SPRAYS IN Luke s - Relief Relief EACH Memoria NOSTRIL l DAILY Once Outpati a day ent Nasally 30 Clinics days Immunizations Ordered Filled Immunization Date Status Comments Sourc e Immunization Name Name Td Td 2019-11-[address] [facility] - 00:[facility]00 [facility] FluAD FluAD 2019-01-[address] [facility] 00:[facility]00 [facility] Vital Signs Vital Name Observation Time Observation Value Comments Source Systolic blood 2020-02-01 10:55:00 133 mm[Hg] Tobi n [facility] pressure Diastolic blood 2020-02-01 10:55:00 61 mm[Hg] [place] on [facility] pressure Heart rate 2020-02-01 10:55:00 62 /min Bong Eisenberg Body height 2020-02-01 10:55:00 160 cm Bong Eisenberg Body weight 2020-02-01 10:55:00 64.864 kg Bong Eisenberg BMI 2020-02-01 10:55:00 25.33 kg/m2 Bong Eisenberg Oxygen saturation in 2020-02-01 10:55:00 100 /min Bong Eisenberg Arterial blood by Pulse oximetry Body temperature 2019-09-14 10:58:00 36.72 Roya Eric ton [facility] Respiratory rate 2019-09-14 10:58:00 16 /min Eric sanford [facility] Procedures Procedure Date / Time Performed Performing Clinician Belkys romero VITAMIN B1 LEVEL, WHOLE 2020-02-07 13:57:00 Tyler Smith BLOOD VITAMIN B6 LEVEL, PLASMA 2020-02-07 13:57:00 Tyler Smith VITAMIN A LEVEL, PLASMA 2020-01-21 00:00:00 Tyler Smith OR SERUM VITAMIN B12 LEVEL 2020-01-21 00:00:00 Tyler Smith VITAMIN D 25 HYDROXY 2020-01-21 00:00:00 Williams, Tyler Melvin Jr padilla [facility] LEVEL COPPER LEVEL, SERUM 2020-01-21 00:00:00 Williams, Tyler Melvin Joan weir [facility] FOLATE LEVEL 2020-01-21 00:00:00 Williams, Tyler Melvin Woody [facility] VITAMIN B1 LEVEL, WHOLE 2020-01-21 00:00:00 Williams, Tyler Brightse Bong Murphyist BLOOD ZINC LEVEL, SERUM 2020-01-21 00:00:00 Williams, Tyler Ngozi Echevarria on [facility] HEMOGLOBIN A1C 2020-01-21 00:00:00 Williams, Tyler Brightse Bong Murphyist COMPREHENSIVE METABOLIC 2019-09-02 07:07:00 Anton, Darvin sanford [facility] PANEL LIPID PANEL 2019-09-02 07:07:00 Anton, Darvin Woody Meth odist TOTAL IRON BINDING 2019-09-02 07:07:00 Anton, Darvin Woody M ethodist CAPACITY T4, FREE 2019-09-02 07:07:00 Anton, Darvin Austin odist THYROID STIMULATING 2019-09-02 07:07:00 Anton, Darvin Murphyist HORMONE HEMOGLOBIN A1C 2019-09-02 07:07:00 Anton, Darvin Austin odist PARATHYROID HORMONE 2019-09-02 07:07:00 Anton, Darvin Eisenberg CBC WITH PLATELET AND 2019-09-02 07:07:00 Anton, Darvin Britton n [facility] DIFFERENTIAL VITAMIN A LEVEL, PLASMA 2019-09-02 07:07:00 Anton, Darvin sanford [facility] OR SERUM VITAMIN B12 LEVEL 2019-09-02 07:07:00 Anton, Darvin Woody Nh thodist VITAMIN D 25 HYDROXY 2019-09-02 07:07:00 Anton, Darvin Woody [facility] LEVEL COPPER LEVEL, SERUM 2019-09-02 07:07:00 Anton, Darvin Woody [facility] FOLATE LEVEL 2019-09-02 07:07:00 Anton, Darvin Woody Meth odist FERRITIN LEVEL 2019-09-02 07:07:00 Anton, Darvin Woody Meth odist VITAMIN B1 LEVEL, WHOLE 2019-09-02 07:07:00 Anton, Darvin sanford [facility] BLOOD ZINC LEVEL, SERUM 2019-09-02 07:07:00 Darvin Walton Me thodist T3 2019-09-02 07:07:00 Darvin Walton Meth odist Plan of Care Planned Activity Planned Date Details Comments Source Future Scheduled 2019-12-14 INFLUENZA VACCINE (#1) [facility] Test 00:00:00 [code = INFLUENZA Medical Ce nter VACCINE (#1)] Future Scheduled 2019-11-13 INFLUENZA VACCINE [place] [facility] 00:00:00 [code = INFLUENZA VACCINE] Future Scheduled 2008-12-[address] [facility]00 WELLNESS (YEAR 2 or Medical Center FIRST YEAR if no IPPE) [code = MEDICARE ANNUAL WELLNESS (YEAR 2 or FIRST YEAR if no IPPE)] Future Scheduled 2007-12-22 PNEUMOCOCCAL 65+ YRS [facility] - Test 00:00:00 (1 of 1 - Medical Center [id number] PCV13) [code = PNEUMOCOCCAL 65+ YRS (1 of 1 - [id number] PCV13)] Future Scheduled 2007-12-22 65+ PNEUMOCOCCAL [place] [facility] 00:00:00 VACCINE (1 of 1 - PPSV23) [code = 65+ PNEUMOCOCCAL VACCINE (1 of 1 - PPSV23)] Future Scheduled 1992 SHINGLES VACCINES (#1) [place] [facility] 00:00:00 [code = SHINGLES VACCINES (#1)] Future Scheduled 1958 COVID-19 VACCINE (#1) [place] [facility] 00:00:00 [code = COVID-19 VACCINE (#1)] Future Scheduled 1952 DIABETES: RETINAL EYE [place] [facility] 00:00:00 EXAM [code = DIABETES: RETINAL EYE EXAM] Future Scheduled 1952 DIABETIC FOOT EXAM [place] [facility] 00:00:00 [code = DIABETIC FOOT EXAM] Future Scheduled 1950 URINE MICROALBUMIN [place] [facility] 00:00:00 [code = URINE MICROALBUMIN] Encounters Start End Encounter Admission Attending Care Care Encounter Source Date/Time Date/Time Type Type Clinicians Facility Department ID 2020-02-28 2020-02-28 Outpatient [facility] [id number] [facility] 2020-02-03 2020-02-03 Outpatient [facility] [id number] [facility] 2020-02-01 2020-02-01 Outpatient [facility] [id number] [address] [place] 00:00:00 00:00:00 TYLER [address] 2020-01-24 2020-01-24 Outpatient [facility] [id number] [facility] 2019-11-26 2019-11-26 [facility] [id number] [address] 09:[facility]:00 09:00:00 [place] [employer] s - Drive [facility] l Medicine Outpati ent Clinics 2019-10-20 2019-10-20 [facility] [id number] 09:20:00 09:20:00 [place] [facility] [employer] s - Drive [facility] l Medicine Outpati ent Clinics 2019-10-20 2019-10-20 [facility] [id number] 09:00:00 09:00:00 [place] [employer] s - Drive [facility] l Medicine Outpati ent Clinics 2019-10-18 2019-10-18 [facility] [id number] 14:40:00 14:40:00 t [employer] s - Drive [facility] l Medicine Outpati ent Clinics 2019-10-18 2019-10-18 [facility] [id number] 07:56:00 07:56:00 [place] [employer] s - Drive [facility] Medicine Outpati ent Clinics 2019-09-14 2019-09-14 Outpatient [facility] [id number] 825 [place] 00:00:00 00:00:00 DARVIN [address] 2019-07-20 2019-07-20 [facility] [id number] 09:20:00 09:20:00 [place] [employer] s - Drive [facility] l Medicine Outpati ent Clinics 2019-06-16 2019-06-16 [facility] [id number] 10:47:00 10:47:00 [place] [employer] [facility] Medicine Medicine Outpati ent Clinics 2019-05-26 2019-05-26 [facility] [id number] 10:40:00 10:40:00 t [employer] [facility] Medicine Outpati ent Clinics 2019-05-20 2019-05-20 [facility] [id number] 15:50:00 15:50:00 t [employer] [facility] Medicine Outpati ent Clinics 2019-04-26 2019-04-26 [facility] [id number] 11:20:00 11:20:00 t [employer] [facility] Medicine Outpati ent Clinics 2019-03-26 2019-03-31 Inpatient [facility], [facility] [id number] [place] 00:00:00 00:00:00 DARVIN [address] 2019-03-24 2019-03-24 [facility] [id number] 16:48:00 16:48:00 t [employer] [facility] Medicine Outpati ent Clinics 2019-03-18 2019-03-18 Outpatient [facility], [facility] [id number] [address] [place] [address] 00:00:00 00:00:00 DARVIN [address] 2019-03-16 2019-03-16 [facility] [id number] 13:20:00 13:20:00 t [employer] [facility] Medicine Outpati ent Clinics 2019-02-18 2019-02-18 [facility] [id number] 10:33:00 10:33:00 t [employer] [facility] Medicine Outpati ent Clinics 2019-01-26 2019-01-26 [facility] [id number] 13:40:00 13:40:00 t [employer] [facility] l Medicine Outpati ent Clinics 2018-12-29 2018-12-29 [facility] [id number] 08:00:00 08:00:00 t [employer] [facility] Medicine l Medicine Outpati ent Clinics 2018-11-19 2018-11-19 [facility] [id number] 09:40:00 09:40:00 [place] [address] [facility] s - Drive [facility] Medicine l Medicine Outpati ent Clinics 2018-09-24 2018-09-24 [facility] [id number] 15:43:00 15:43:00 [place] [address] Luke s - Drive [facility] Medicine l Medicine Outpati ent Clinics 2018-07-16 2018-07-16 [facility] [id number] 10:00:00 10:00:00 [place] [address] Luke s - Drive [facility] Medicine l Medicine Outpati ent Clinics 2018-04-16 2018-04-16 [facility] [id number] 09:30:00 09:30:00 [place] [employer] s - Drive [facility] Medicine l Medicine Outpati ent Clinics 2018-03-25 2018-03-25 [facility] [id number] 13:50:00 13:50:00 [place] [employer] Luke s - Drive [facility] Medicine l Medicine Outpati ent Clinics 2018-01-29 2018-01-29 [facility] [id number] 10:29:00 10:29:00 [place] [employer] s - Drive [facility] Medicine l Medicine Outpati ent Clinics 2018-01-14 2018-01-14 [facility] [id number] 08:45:00 08:45:00 [place] [address] Luke s - Drive [facility] Medicine l Medicine Outpati ent Clinics 2017-10-16 2017-10-16 [facility] [id number] 09:15:00 09:15:00 [place] [employer] Luke s - Drive [facility] Medicine l Medicine Outpati ent Clinics 2017-10-06 2017-10-06 [facility] [id number] 15:44:00 15:44:00 [place] [employer] Luke s - Drive [facility] Medicine l Medicine Outpati ent Clinics 2017-09-19 2017-09-19 [facility] [id number] 14:57:00 14:57:00 [facility] 2017-09-12 2017-09-12 [facility] [id number] 15:09:00 15:09:00 [facility] 2017-09-04 2017-09-04 Outpatient Elif Asenciot [id number] 14:45:00 14:45:00 [facility] Results Test Description Test Time Test Comments Results Result Comments Source Vitamin B6 level, plasma 2020-02-11 12:44:00 Test Item Value Reference Range Interpretation Comme nts Vitamin B6 (test code = 112.6 ng/mL 2.1-21.7 H Carmen min supplementation 2900-9) within 24 hours prior to blood draw may affect the accuracy of res ults. This test was develo ped and its analytical perf ormance characteristics have been determined by [employer]. It has not been cleared or approved by theFDA. This assay has been validated pursuant to the CLIA regula tions and is used for cli nical purposes. RAC (test code = RAC) Performing Organization Information: Site ID: [facility] Name: [employer] Address: [address] [place] [address] Director: [place] M.D. Lab Interpretation (test Abnormal code = 78682-3) [place] [facility]Vitamin B1 level, whole [id number] 12:44:00 Test Item Value Reference Interpretation Comments Range Vitamin B1, whole 487 nmol/L 78-185 H Vitamin blood (test code = supplemen tation 31129-1) within 24 hours prior toblood d raw may affect the accuracy of res ults. This test was developed and i ts analytical performance characteristics have been determined by [employer]. It has not been cleared or appr rylie by theFDA. This assay has been validated pursu ant to the CLIA regulations and is used for clinic al purposes. RAC (test code = Performing RAC) Organization Information: Site ID: [facility] Name: [employer] [facility] Address: [address] [place] [phone] Director: [place] M.D. Lab Interpretation Abnormal (test code = 68396-4) [place] [facility] B12 [id number] 18:59:00 Test Item Value Reference Range Interpretation Comments Vitamin B12 (test code = >2000 200-1100 H 2132-9) GINGER (test code = GINGER) FASTING:YESFASTING: YES RAC (test code = RAC) Performing Organization Information: Site ID: [facility] Name: [facility] Address: [address] [place] [phone] Director: Elvis French Lab Interpretation (test Abnormal code = 99261-0) [place] MethodistFolate [id number] 18:59:00 Test Item Value Reference Range Interpretation Comments Folate (test >24.0 ng/mL code = 2284-8) Refer ence Range Lo w: <3.4 Borderline: 3.4-5.4 Normal: >5.4 GINGER (test code FASTING:YESFASTING: = GINGER) YES RAC (test code Performing = RAC) Organization Information: Site ID: [facility] Name: [facility] Address: [address] [place] [phone] Director: Elvis French [place] MethodistHemoglobin [id number] 18:59:00 Test Item Value Reference Range Interpretation Comments Hemoglobin A1C 5.5 <5.7 % of total For the pu rpose of (test code = Hgb screening for t he 4548-4) presence ofdiab etes: <5.7% Consistent with the absence of diabetes5.7-6.4 % Consistent with increased risk for diabetes (prediabetes)> or =6.5% Consiste nt with diabetes T his assay result is consistent with a decreased risko f diabetes. Curre ntly, no consensus ex ists regarding use ofhemoglobin A1 c for diagnosis of di abetes in children. According to [place] er[place] Diabetes Associ ation (ADA)guidelines , hemoglobin A1c <7.0% represents optimalcontrol in non- di abetic patients. Differentmetric s may apply to specif ic patient populat ions. Standards of Nh dical Care in Diabetes(ADA). GINGER (test code = FASTING:YESFASTING GINGER) : YES RAC (test code = Performing RAC) Organization Information: Site ID: [facility] Name: [facility] Address: [address] [place] [phone] Director: Elvis French [place] [facility] Day[facility]itamin D 25 hydroxy [id number] 18:59:00 Test Item Value Reference Range Interpretation Comments Vitamin D, 31 ng/mL 30-100 Vitamin D Statu s 25-hydroxy 25-OH Carmen min (test code = D: Deficiency: 1989-3) < 20 ng/mLInsufficie ncy: 20 - 29 ng/mLOptimal: > or = 30 ng/mL For 25-OH Vitamin D testi ng on patients on D2-supplementat ion and patients fo r whom quantitati on of D2 and D3 fractions is required, the QuestAssureD(TM )25- OH VIT D, (D2,D 3), LC/MS/MS is recommended: or michael code 43785 (patients >2yrs).See Note 1 Note 1 For additional information, pl ease refer to http://educatio n.B2Brev/ faq/DWA283 (Thi s link is being provided for informational/e duca tional purposes only.) GINGER (test code FASTING:YESFASTING: = GINGER) YES RAC (test code Performing = RAC) Organization Information: Site ID: [facility] Name: [facility] Address: [address] [place] [phone] Director: Elvis French [place] [facility] DayVitamin A level, plasma or [id number] 18:59:00 Test Item Value Reference Range Interpretation Comments Vitamin A 59 38- 98 mcg/dL Clin Chem Vo l. (retinol) 34.No.8. [id number]. (test code = 1998Vitamin 2923-1) supplementation within 24 hours prior to blood draw m ay affect the accu racy of results. T his test was develo ped and its analyti jerod performance characteristics have been determined by [employer]. It has not been cl eared or approved by theA. This as say has been valida edwin pursuant to the CLIA regulations and is used for clinic al purposes. GINGER (test code FASTING:YESFASTING: = GINGER) YES RAC (test code Performing = RAC) Organization Information: Site ID: [facility] Name: [facility] Address: [address] [place] [address] Director: [place] MethodistZinc level, [id number] 18:59:00 Test Item Value Reference Range Interpretation Comments Zinc (test 126 60- 130 mcg/dL This test wa s code = developed and i ts 5763-8) analytical perf ormance characteristics have been determined by [employer] . It has not been cl eared or approved by theFDA. This assay has been validated pursu ant to the CLIA regula tions and is used for clinical purpos es. GINGER (test FASTING:YESFASTING: code = GINGER) YES RAC (test Performing code = RAC) Organization Information: Site ID: [facility] Name: [facility] Address: [address] [place] [address] Director: [place] MethodistCopper level, [id number] 18:59:00 Test Item Value Reference Range Interpretation Comments Copper (test 113 70- 175 mcg/dL This test wa s code = developed and i ts 5631-7) analytical perf ormance characteristics have been determined by [employer] . It has not been cl eared or approved by theFDA. This assay has been validated pursu ant to the CLIA regula tions and is used for clinical purpos es. GINGER (test FASTING:YESFASTING: code = GINGER) YES RAC (test Performing code = RAC) Organization Information: Site ID: [facility] Name: [facility] Address: [address] [place] [address] Director: [place] EisenbergComprehensive metabolic [id number] 08:55:00 Test Item Value Reference Interpretation Comments Range Glucose (test code 67 mg/dL 65-99 Fasting = 2345-7) reference inter lindy BUN (test code = 24 mg/dL 7-25 3094-0) Creatinine (test 0.77 mg/dL 0.6-0.93 For patient s >49 code = 2160-0) years of age, the reference limit for Creatinine is approximately 1 3% higher for peopleidentifie d as -Valeri n. EGFR Non-Afr. 75 > OR = 60 Mexican (test code mL/min/1.73m2 = 2775) EGFR 87 > OR = 60 Mexican (test code mL/min/1.73m2 = 40465-7) BUN/creatinine NOT APPLICABLE 6- 22 (calc) ratio (test code = 3097-3) Sodium (test code = 143 mmol/L 525-635 0418-2) Potassium (test 4.5 mmol/L 3.5-5.3 code = 2823-3) Chloride (test code 106 mmol/L 98-110 = 5-0) CO2 (test code = 31 mmol/L 20-32 9) Calcium (test code 9.8 mg/dL 8.6-10.4 = 64778-5) Protein (test code 7.0 g/dL 6.1-8.1 = 2885-2) Albumin, S (test 3.9 g/dL 3.6-5.1 code = 1751-7) Globulin, total 3.1 1.9- 3.7 g/dL (test code = (calc) 47093-5) Albumin/globulin 1.3 1.0- 2.5 ratio (test code = (calc) 1759-0) Total bilirubin 0.9 mg/dL 0.2-1.2 (test code = 1974-2) Alkaline 62 U/L 37-153 phosphatase (test code = 6768-6) AST (test code = 26 U/L 10-35 1919-8) ALT (test code = 30 U/L 6-29 H 174-6) GINGER (test code = FASTING:YESFASTIN GINGER) G: YES RAC (test code = Performing RAC) Organization Information: Site ID: [facility] Name: [facility] Address: [address] [place] [address] Director: Elvis French Lab Interpretation Abnormal (test code = 80748-7) [place] MethodistLipid [id number] 08:55:00 Test Item Value Reference Range Interpretation Comments Cholesterol, total 89 mg/dL <200 (test code = 2092-3) HDL cholesterol 49 mg/dL > OR = 50 L (test code = 2084-9) Triglycerides (test 70 mg/dL <150 code = 2571-8) LDL cholesterol 25 mg/dL (calc) Reference ra nge: calculated (test <100 Desira ble code = 78956-8) range <100 m g/dL for primary prevention; <7 0 mg/dL for patients with C HD or diabetic patients with > or = 2 CHD risk factors. LDL-C is now calculated using the Princess calculation, which is a validated novel method providin g better accuracy than the Friedewald equation in the estimation of LDL-C. Osvaldo S S et al. [place]. 2013;310(19): 2012-4631 (http://educati on .[employer] .com/faq/YBK041 ) Cholesterol/HDL 1.8 <5.0 (calc) ratio (test code = 9830-1) Non-HDL cholesterol 40 <130 mg/dL For marito ents with (test code = (calc) diabetes plus 1 16107-4) major ASCVD ris k factor, treatin g to a non-HDL-C goal of <100 mg/dL (LDL-C of <70 mg/dL) is considered a therapeutic option. GINGER (test code = FASTING:YESFASTING GINGER) : YES RAC (test code = Performing RAC) Organization Information: Site ID: [facility] Name: [facility] Address: [address] [place] [phone] Director: Elvsi French Lab Interpretation Abnormal (test code = 64600-3) [place] MethodistFerritin [id number] 08:55:00 Test Item Value Reference Range Interpretation Comments Ferritin level (test 27 ng/mL 16-288 code = 2276-4) GINGER (test code = GINGER) FASTING:YESFASTING: YES RAC (test code = RAC) Performing Organization Information: Site ID: [facility] Name: [facility] Address: [address] [place] [phone] Director: Elvis French [place] MethodistParathyroid [id number] 08:55:00 Test Item Value Reference Interpretation Comments Range PTH (test 41 pg/mL 14-64 Interpretive G uide Intact code = PTH 2731-8) Calcium-------- -------Normal P arathyroid Normal NormalHypoparat hyroidism Low or Low Norm al LowHyperparathy roidism Primary Normal or High High Secondary High Normal or Low Tertiary High HighNon-Parathy roid Hypercalcemia Low or Low Normal High GINGER (test FASTING:YESFASTIN code = G: YES GINGER) RAC (test Performing code = Organization RAC) Information: Site ID: [facility] Name: [facility] Lab Address: [address] [place] [address] Director: Dr. Elvis EisenbergT4, [id number] 08:55:00 Test Item Value Reference Range Interpretation Comments T4, free (test code 0.8 ng/dL 0.8-1.8 = 3024-7) GINGER (test code = FASTING:YESFASTING: YES GINGER) RAC (test code = Performing Organization RAC) Information: Site ID: [facility] Name: [facility] Address: [address] [place] [phone] Director: Elvis EisenbergThyroid stimulating [id number] 08:55:00 Test Item Value Reference Range Interpretation Comments TSH (test code = 3.06 0.40- 4.50 mIU/L 3016-3) GINGER (test code = FASTING:YESFASTING: YES GINGER) RAC (test code = Performing Organization RAC) Information: Site ID: [facility] Name: [facility] Address: [address] [place] [phone] Director: Elvis [id number] 08:55:00 Test Item Value Reference Range Interpretation Comments T3 (test code = 93 ng/dL 76-181 3053-6) GINGER (test code = FASTING:YESFASTING: YES GINGER) RAC (test code = Performing Organization RAC) Information: Site ID: [facility] Name: [facility] Address: [address] [place] [phone] Director: Elvis [facility] with platelet and [id number] 08:55:00 Test Item Value Reference Range Interpretation Comments WBC (test code = 8.2 3.8- 10.8 6690-2) Thousand/uL RBC (test code = 4.56 3.80- 5.10 789-8) Million/uL HGB (test code = 13.5 g/dL 11.7-15.5 718-7) HCT (test code = 41.3 % 35-45 4544-3) MCV (test code = 90.6 fL 80-100 787-2) MCH (test code = 29.6 pg 27-33 785-6) MCHC (test code = 32.7 g/dL 32-36 786-4) RDW (test code = 14.7 % 11-15 788-0) Platelet count (test 194 140- 400 code = 777-3) Thousand/uL MPV (test code = 12.4 fL 7.5-12.5 776-5) Neutrophils, absolute 6150 1,500 - 7,800 (test code = 751-8) cells/uL Lymphocytes, absolute 1320 850- 3,900 (test code = 731-0) cells/uL Monocytes, absolute 549 200- 950 cells/uL (test code = 742-7) Eosinophils, absolute 139 15- 500 cells/uL (test code = 711-2) Basophils, absolute 41 0- 200 cells/uL (test code = 704-7) Neutrophils (test 75 % code = 770-8) Lymphocytes (test 16.1 % code = 736-9) Monocytes (test code 6.7 % = 5905-5) Eosinophils (test 1.7 % code = 713-8) Basophils + RC (test 0.5 % code = 706-2) GINGER (test code = GINGER) FASTING:YESFASTING: YES RAC (test code = RAC) Performing Organization Information: Site ID: [facility] Name: [facility] Address: [address] [place] [phone] Director: Elvis French [place] Kermit iron binding [id number] 08:55:00 Test Item Value Reference Range Interpretation Comments Iron level (test 81 45- 160 mcg/dL code = 2498-4) Iron binding 349 250- 450 mcg/dL capacity (test code (calc) = 2500-7) Iron saturation 23 16- 45 % (calc) (test code = 2502-3) GINGER (test code = FASTING:YESFASTING: GINGER) YES RAC (test code = Performing RAC) Organization Information: Site ID: [facility] Name: [facility] Address: [address] [place] [phone] Director: Elvis Zapien [id number] 09:01:00Surgical Pathology Report Case: [id number] Authorizing Provider: Junior Leslie Collected: 09/25/2017 1616 MD Anupam OrderingLocation: [facility] Received: 09/26/2017 0802 SERVICES Pathologist: Jason You MD Specimen: Femoral Head, Right Hip BONE, RIGHT HIP, ARTH ROPLASTY: -OSTEOARTHRITIS Signing Pathologist Direct Phone Line: [phone] signed by Jason You MD on 10/03/2017 at 9:01 [id number] hip arthritisRight femoral headThe specimen is received in a fluidless container labeled with patient information and labeled "right femoral head" and consists of a lynch-red spherical femoral head measuring 3.5 x 3 x 3 cm witha sharply amputated base. The articular surface has distinct osteophyte formation and a small area of eburnation.Section code: A1 and A2, bone submitted for decalcification; A3, soft tissue and bone submitted for decal. CG/pl The sections show reduplication of the tidemark with eburnation and osteophyte formation.The synovial tissue reveals subsynovial edema with chronic inflammation.POCT-GLUCOSE [id number] 08:07:00 Test Item Value Reference Range Interpretation Comments POC-GLUCOSE METER 302 mg/dL 70-110 H TESTED AT [facility] 6720 (BEAKER) (test code = [facility] 1538) 13752 BASIC METABOLIC [id number] 07:09:00 Test Item Value Reference Range Interpretation Comments SODIUM (BEAKER) 136 meq/L 136-145 (test code = 381) POTASSIUM (BEAKER) 4.5 meq/L 3.5-5.1 (test code = 379) CHLORIDE (BEAKER) 108 meq/L 98-107 H (test code = 382) CO2 (BEAKER) (test 21 meq/L 22-29 L code = 355) BLOOD UREA NITROGEN 19 mg/dL 7-21 (BEAKER) (test code = 354) CREATININE (BEAKER) 0.82 mg/dL 0.57-1.25 (test code = 358) GLUCOSE RANDOM 221 mg/dL 70-105 H (BEAKER) (test code = 652) CALCIUM (BEAKER) 8.6 mg/dL 8.4-10.2 (test code = 697) EGFR (BEAKER) (test 68 mL/min/1.73 ESTIMA EDWIN GFR IS code = 1092) sq m NOT ACCURATE CREATININE CLEARANCE IN PREDICTING GLOMERULAR FILTRATION RATE . ESTIMATED GFR I S NOT APPLICABLE FOR DIALYSIS PATIEN TS. HEMOGLOBIN AND [id number] 06:38:00 Test Item Value Reference Range Interpretation Comments HEMOGLOBIN (BEAKER) (test code = 9.4 GM/DL 11.2-15.7 L 410) HEMATOCRIT (BEAKER) (test code = 29.5 % 34.1-44.9 L 411) POCT-GLUCOSE [id number] 21:34:00 Test Item Value Reference Range Interpretation Comments POC-GLUCOSE METER 298 mg/dL 70-110 H TESTED AT [facility] 6720 (BEAKER) (test code = [facility] 1538) [address] BASIC METABOLIC [id number] 18:58:00 Test Item Value Reference Range Interpretation Comments SODIUM (BEAKER) 133 meq/L 136-145 L (test code = 381) POTASSIUM (BEAKER) 4.6 meq/L 3.5-5.1 (test code = 379) CHLORIDE (BEAKER) 107 meq/L 98-107 (test code = 382) CO2 (BEAKER) (test 20 meq/L 22-29 L code = 355) BLOOD UREA NITROGEN 30 mg/dL 7-21 H (BEAKER) (test code = 354) CREATININE (BEAKER) 1.35 mg/dL 0.57-1.25 H (test code = 358) GLUCOSE RANDOM 266 mg/dL 70-105 H (BEAKER) (test code = 652) CALCIUM (BEAKER) 8.3 mg/dL 8.4-10.2 L (test code = 697) EGFR (BEAKER) (test 38 mL/min/1.73 ESTIMA EDWIN GFR IS code = 1092) sq m NOT ACCURATE CREATININE CLEARANCE IN PREDICTING GLOMERULAR FILTRATION RATE . ESTIMATED GFR I S NOT APPLICABLE FOR DIALYSIS PATIEN TS. POCT-GLUCOSE [id number] 17:06:00 Test Item Value Reference Range Interpretation Comments POC-GLUCOSE METER 228 mg/dL 70-110 H TESTED AT [facility] 67[address] (BEAKER) (test code = [place] 1538) [id number] RAD, CHEST, 1 VIEW, NON [id number] 15:01:00Reason for exam:->feverShould this be performed at the bedside?->YesFINAL REPORT TECHNIQUE: Frontal chest radiograph dated 09/26/2017. CLINICAL HISTORY: Fever COMPARISON STUDY: None IMPRESSION:There is minimal atelectasis in the left lung base. Right lung is clear. No pleural effusion or pneumothorax. Cardiomediastinal silhouette is normal in size. No pulmonary edema. Degenerative changes are seen in the spine. Bones are osteopenic. No fracture. Signed: Tommy Albert MDReport Verified Date/Time: 09/26/2017 15:01:38 Reading [facility] [id number] 14:39:00 Test Item Value Reference Range Interpretation Comments SODIUM (BEAKER) 134 meq/L 136-145 L (test code = 381) POTASSIUM (BEAKER) 5.3 meq/L 3.5-5.1 H (test code = 379) CHLORIDE (BEAKER) 107 meq/L 98-107 (test code = 382) CO2 (BEAKER) (test 20 meq/L 22-29 L code = 355) BLOOD UREA NITROGEN 28 mg/dL 7-21 H (BEAKER) (test code = 354) CREATININE (BEAKER) 1.49 mg/dL 0.57-1.25 H (test code = 358) GLUCOSE RANDOM 191 mg/dL 70-105 H (BEAKER) (test code = 652) CALCIUM (BEAKER) 8.3 mg/dL 8.4-10.2 L (test code = 697) EGFR (BEAKER) (test 34 mL/min/1.73 ESTIMA EDWIN GFR IS code = 1092) sq m NOT ACCURATE CREATININE CLEARANCE IN PREDICTING GLOMERULAR FILTRATION RATE . ESTIMATED GFR I S NOT APPLICABLE FOR DIALYSIS PATIEN TS. [id number] 13:26:00 Test Item Value Reference Range Interpretation Comments POTASSIUM (BEAKER) (test code = 5.4 meq/L 3.5-5.1 H 379) POCT-GLUCOSE [id number] 12:40:00 Test Item Value Reference Range Interpretation Comments POC-GLUCOSE METER 230 mg/dL 70-110 H TESTED AT [facility] [address] (BEAKER) (test code = [place] 1538) [id number] POCT-GLUCOSE [id number] 07:49:00 Test Item Value Reference Range Interpretation Comments POC-GLUCOSE METER 166 mg/dL 70-110 H TESTED AT [facility] 67[address] (BEAKER) (test code = [place] 1538) [id number] BASIC METABOLIC [id number] 07:13:00 Test Item Value Reference Range Interpretation Comments SODIUM (BEAKER) 134 meq/L 136-145 L (test code = 381) POTASSIUM (BEAKER) 6.1 meq/L 3.5-5.1 HH No hemoly sis (test code = 379) CHLORIDE (BEAKER) 107 meq/L 98-107 (test code = 382) CO2 (BEAKER) (test 23 meq/L 22-29 code = 355) BLOOD UREA NITROGEN 28 mg/dL 7-21 H (BEAKER) (test code = 354) CREATININE (BEAKER) 1.72 mg/dL 0.57-1.25 H (test code = 358) GLUCOSE RANDOM 175 mg/dL 70-105 H (BEAKER) (test code = 652) CALCIUM (BEAKER) 8.6 mg/dL 8.4-10.2 (test code = 697) EGFR (BEAKER) (test 29 mL/min/1.73 ESTIMA EDWIN GFR IS code = 1092) sq m NOT ACCURATE CREATININE CLEARANCE IN PREDICTING GLOMERULAR FILTRATION RATE . ESTIMATED GFR I S NOT APPLICABLE FOR DIALYSIS PATIEN TS. BASIC METABOLIC [id number] 05:22:00 Test Item Value Reference Range Interpretation Comments SODIUM (BEAKER) 137 meq/L 136-145 (test code = 381) POTASSIUM (BEAKER) 6.0 meq/L 3.5-5.1 HH (test code = 379) CHLORIDE (BEAKER) 108 meq/L 98-107 H (test code = 382) CO2 (BEAKER) (test 21 meq/L 22-29 L code = 355) BLOOD UREA NITROGEN 26 mg/dL 7-21 H (BEAKER) (test code = 354) CREATININE (BEAKER) 1.83 mg/dL 0.57-1.25 H (test code = 358) GLUCOSE RANDOM 172 mg/dL 70-105 H (BEAKER) (test code = 652) CALCIUM (BEAKER) 8.9 mg/dL 8.4-10.2 (test code = 697) EGFR (BEAKER) (test 27 mL/min/1.73 ESTIMA EDWIN GFR IS code = 1092) sq m NOT ACCURATE CREATININE CLEARANCE IN PREDICTING GLOMERULAR FILTRATION RATE . ESTIMATED GFR I S NOT APPLICABLE FOR DIALYSIS PATIEN TS. HEMOGLOBIN AND [id number] 04:55:00 Test Item Value Reference Range Interpretation Comments HEMOGLOBIN (BEAKER) (test code = 10.6 GM/DL 11.2-15.7 L 410) HEMATOCRIT (BEDAYTON) (test code = 34.1 % 34.1-44.9 411) POCT-GLUCOSE [id number] 22:27:00 Test Item Value Reference Range Interpretation Comments POC-GLUCOSE METER 254 mg/dL 70-110 H TESTED AT [facility] [address] ([facility] (test code = [place] 1538) [id number] RAD, PELVIS, 1 OR 2 [id number] 19:48:00Reason for exam:->s/p THAShould this be performed at the bedside?->YesFINAL REPORT Post operative exam: Clinical history: Status post total hip repl acementComparison: September 25, 2017 at 1623 Two image(s) was(were) submitted for interpretation. Report:Imaging was performed following surgery.. Laterality was documented on this exam with a lead marker. A total hip prosthesis is visualized overlying the right acetabulum and right proximal femur. There is no evidence of fracture or dislocation. This information was not discussed with the OR personnel at the time of dictation. Signed: Maddy Stewart Verified Date/Time: 09/25/2017 19:48:33 Reading Location: [address] Consult Reading Room -GLUCOSE [id number] 19:19:00 Test Item Value Reference Range Interpretation Comments POC-GLUCOSE METER 173 mg/dL 70-110 H TESTED AT [facility] [address] ([facility] (test code = [place] 1538) [id number] RAD, PELVIS, 1 OR 2 [id number] 17:03:00Reason for exam:->hip osteoarthritisFINAL REPORT Technique: Single intraoperative image of the pelvis submitted. FINDINGS: Single limited view of the pelvis demonstrates left hip arthroplasty in progress. Correlation with intraprocedural findings recommended. Signed: Mik Baron MDReport Verified Date/Time: 09/25/2017 17:03:04 Reading Location: [facility] Reading Room ELECTROLYTES 2017-09-25 12:48:00 Test Item Value Reference Range Interpretation Comments SODIUM (BEAKER) (test code = 381) 138 meq/L 136-145 POTASSIUM (BEAKER) (test code = 4.7 meq/L 3.5-5.1 379) CHLORIDE (BEAKER) (test code = 382) 105 meq/L 98-107 CO2 (BEAKER) (test code = 355) 23 meq/L 22-29 BUN AND [id number] 12:48:00 Test Item Value Reference Range Interpretation Comments BLOOD UREA NITROGEN 19 mg/dL 7-21 (BEAKER) (test code = 354) CREATININE (BEAKER) 1.06 mg/dL 0.57-1.25 (test code = 358) EGFR (BEAKER) (test 51 mL/min/1.73 ESTIMA EDWIN GFR IS code = 1092) sq m NOT ACCURATE CREATININE CLEARANCE IN PREDICTING GLOMERULAR FILTRATION RATE . ESTIMATED GFR I S NOT APPLICABLE FOR DIALYSIS PATIEN TS. POCT-GLUCOSE [id number] 12:31:00 Test Item Value Reference Range Interpretation Comments POC-GLUCOSE METER 131 mg/dL 70-110 H TESTED AT [facility] [address] (BEAKER) (test code = [place] 1538) [id number] 11:03:00 Test Item Value Reference Range Interpretation Comments HEMOGLOBIN (BEAKER) (test code = 12.8 GM/DL 11.2-15.7 410) PLATELET [id number] 11:03:00 Test Item Value Reference Range Interpretation Comments PLATELET COUNT (BEAKER) (test 213 K/CU MM 150-450 code = 756)
[2020-03-31] MEDS ORDERED: NA CHLORIDE 0.9% 500 ML ONE (08:59)
[2020-03-31 09:58] VITALS: TEMP 97.2
[2020-03-31] MEDS ORDERED: HEPA 1000U/500MLS 1,000 UNIT/500 ML BAG IV ONE (10:37)
[2020-03-31] MEDS ORDERED: LIDOCAINE 1% 20 ML MDV ONE (10:37)
[2020-03-31] MEDS ORDERED: MIDAZOLAM HCL 2 MG/2 ML INJ ONE (11:50)
[2020-03-31] MEDS ORDERED: FENTANYL CITR 100 MCG/2 ML ONE (11:51)
[2020-03-31] MEDS ORDERED: NA CHLORIDE 0.9% 0 ML ONE (11:51)
[2020-03-31] MEDS ORDERED: ATROPINE SULF 1 MG/10 ML SYR IV ONE (11:51)
[2020-03-31] MEDS ORDERED: cloNIDine HCL 0.1 MG TAB ONE (12:15)
--- NOTE | 2020-03-31 12:37 | OP ---
Surgeon: Darvin Vail MD [employer] Cord: Rufino Garcia. Reason For Admission: Need for left heart catheterization. Procedures Performed: The patient underwent left heart catheterization, selective coronary arteriogr am, left ventricular angiogram with left ventricular end-diastolic pressure measurement. Indication: Unstable angina and history of CAD, hypertension, dyslipidemia. Description Of Procedure: The patient was prepped and draped in the routine sterile fashion in the c ath lab. She was given Versed for sedation. A 6-[place] sheath was introduced in the right common fe moral artery successfully using the Seldinger technique and 10 cc of Xylocaine. Angiography there wa s normal. Angio-Seal was used to close the case. 6-[place] catheters were used to do the coronary in jection in the left main and the right main. She was found to have a normal circumflex, normal RCA, right dominant. She had minimal plaquing in the mid LAD. She had hypertension requiring clonidine. She had a normal ejection fraction with an end-diastolic pressure of 18 mmHg. The LV-gram was done with a JR4 catheter. There were no complications. Blood Loss: 5 mL. Postoperative Diagnoses: Minimal coronary artery disease, hypertension requiring clonidine. Plan: Plan is for medical therapy. Anesthesia: Total conscious sedation was 45 minutes. The patient will remain at bedrest after Angio-Seal for 2 hours and she will go home afterwards. I w ill see her in the office in the next 2 weeks. DOROTA/ARIAN Voice ID: [id number] Report ID: [id number]
[2020-03-31 14:30] VITALS: O2SAT 98
[2020-03-31 14:37] VITALS: BP 122/94
== END 2020-03-31 14:44 | disposition home or self-care (01) ==
LOC: CCL 08:30
DX: I25.110 Atherosclerotic heart disease of native coronary artery with unstable angina pectoris (principal); I10 Essential (primary) hypertension; E78.2 Mixed hyperlipidemia; E11.9 Type 2 diabetes mellitus without complications; J44.1 Chronic obstructive pulmonary disease with (acute) exacerbation; K50.90 Crohn's disease, unspecified, without complications; K21.9 Gastro-esophageal reflux disease without esophagitis; F41.1 Generalized anxiety disorder; Z20.828 Contact with and (suspected) exposure to other viral communicable diseases; Z82.49 Family history of ischemic heart disease and other diseases of the circulatory system
CPT/HCPCS: 85025; 80048; 36415; 85610; 82947; 85730; 71046; 93458; U0002; C1893; C1760; J2250; J3010; J7040; J1644 ×2; J0583

== ENCOUNTER 2021-12-20 15:14 | Emergency (ER) | payer OTHER, BC ==
--- OUTSIDE RECORDS SUMMARY | 2021-12-20 15:21 | XMS REPORT | Continuity of Care Document ---
:1940 Author Organization [facility] t Address [address] [place] [address] Care Team Providers Name Role Phone BEATRICE BASSETT Primary Care Physician Unavailable Beatrice Bassett Attending Clinician Unavailable Cameron Macias MD Attending Clinician Orlando Hernandez MD Attending Clinician José Miguel Olivera MD Attending Clinician Fernando Palomino MD Attending Clinician Darvin Walton MD Attending Clinician Kayden Skaggs Attending Clinician Boone Whitney DO Attending Clinician Junior Leslie MD Attending Clinician BOONE WHITNEY Attending Clinician Unavailable TYLER KRAMER Attending Clinician Unavailable JUNIOR LESLIE Attending Clinician Unavailable DARVIN WALTON Admitting Clinician Unavailable JUNIOR LESLIE Admitting Clinician Unavailable Payers Payer Name Policy Type Policy Number Effective Date Expiration Date Francine avalos MEDICARE PART A [id number] 2007 AND B 00:00:00 MEDICARE A B [id number] 2007 00:00:00 BCBS FED [id number] 2015 00:00:00 Problems Condition Condition Condition Status Onset Resolution Last Treating Co mments Source Name Details Category Date Date Treatment Clinician Date Gastroesop Gastroesop Disease Active 2018-04 M ethodi hageal hageal 2-13 st reflux reflux 00:00: Hospita disease disease 00 l with with esophagiti esophagiti s s Epigastric Epigastric Disease Active 2018-04 M ethodi pain pain 0-08 st 00:00: Hospita 00 l Obesity Obesity Disease Active 2018-04 Methodi 0[facility]08 [facility] 00:00: Hospita 00 l Metabolic Metabolic Disease Active 2018-04 Met hodi syndrome syndrome 0-08 st 00:00: Hospita 00 l Gastric Gastric Disease Active 2018-04 Methodi outlet outlet 0-08 st obstructio obstructio 00:00: Ho spita n n 00 l Abnormal Abnormal Disease Active 2018-04 Metho di finding on finding on 0-08 st GI tract GI tract 00:00: Hospit a imaging imaging 00 l Arthritis Arthritis Disease Active [facility] No known No known Disease [facility] active active [place] problems problems of Medicin e Allergies, Adverse Reactions, Alerts Allergy Allergy Status Severity Reaction(s) Onset Inactive Treating Comm ents Source Name Type Date Date Clinician NO KNOWN Allergy Active [facility] Family History Family Member Diagnosis Comments Start Date Stop Date Source Natural father [facility] mother No Known Problems Met [facility] Social History Social Habit Start Date Stop Date Quantity Comments Source History SDOH Denominational Alcohol Std Drinks Hospit al History SDOH [facility] History of tobacco Passive smoker [facility] use Exposure to 2021-12-08 2021-12-18 Not sure [facility] SARS-CoV-2 (event) 00:00:00 13:42:00 Alcohol intake 2019-09-14 2019-09-14 Current drinker of [facility] 00:00:00 00:00:00 alcohol (finding) Hospita l History SDOH 2019-09-14 2019-09-14 4 Denominational Alcohol Frequency 00:00:00 00:00:00 Hospita l Alcohol Comment 2019-03-17 2019-03-17 occaisional Methodis t 00:00:00 00:00:00 Hospital Cigarettes smoked 2017-09-10 2017-09-[address] [facility] current (pack per 00:00:00 00:00:00 Medical Center day) - Reported Cigarette 2017-09-10 2017-09-[address] [facility] pack-years 00:00:00 00:00:00 [facility] Center Tobacco use and 2017-09-10 2017-09-[address] [facility] [address] [facility] exposure 00:00:00 00:00:00 [facility] Center Sex Assigned At [birth year] Denominational 00:00:00 00:00:00 Hospital Smoking Status Start Date Stop Date Source Never smoked tobacco [facility] Former smoker 2020-04-03 00:00:00 2020-04-03 00:00:00 [facility] Medications Ordered Filled Start Stop Current Ordering Indication Dosage Frequency Signature Comments Components Source Medication Medication Date Date Medication? Clinician (SIG) Name Name Melatonin Yes as UT 10 MG 12-18 directed Health tablet 15:05: Orally 34 Turmeric Yes 1{capsu QD Take 1 UT Curcumin 12-18 le} capsule by Healt h 500 MG 15:05: mouth 1 capsule 34 (one) time each day. busPIRone Yes 1{tbl} Q6H Take 1 UT (Buspar) 5 06 tablet by Heal th MG tablet 15:05: mouth 34 every 6 (six) hours if needed. lisinopril Yes 20mg QD Take 20 mg U T 20 MG 06 by mouth 1 Health tablet 15:05: (one) time 34 each day. inFLIXimab Yes See UT (Remicade) 12-18 administra Hea lth 100 MG 15:05: tion injection 34 instructio ns. folic acid Yes 1 (one) UT (Folvite) 1 -06 time each Hea lth MG tablet 15:05: day at the 34 same time. B Complex Yes 1{tbl} QD Take 1 UT Vitamins 12-18 tablet by Health (Vitamin 15:05: mouth 1 B-Complex) 34 (one) time tablet each day. omeprazole Yes omeprazole U T (PriLOSEC) 12-18 40 [address] 15:05: capsule,de capsule 34 layed release oxybutynin Yes oxybutynin U T (Ditropan) 12-18 chloride 5 Hea lth 5 MG tablet 15:05: mg tablet 34 Tafluprost, Yes 1 (one) UT PF, 12-18 time each Health (Zioptan) 15:05: day at the 0.0015 % 34 same time. solution cycloSPORIN Yes 1 drop UT E 12-18 into Health (Restasis) 15:05: affected 0.05 % 34 eye ophthalmic emulsion fluticasone Yes 2{puff} QD Inhale 2 UT (Flovent 12-18 puffs 1 Health Diskus) 50 15:05: (one) time MCG/BLIST 34 each day. diskus inhaler albuterol Yes 2 puffs as UT 108 (90 12-18 needed Health Base) 15:05: MCG/ACT 34 inhaler clotrimazol Yes [id number] Q.5D Apply UT e 12-18 topically Health (Lotrimin) 00:00: 2 (two) 1 % cream 00 times a day. clonazePAM Yes UT (KlonoPIN) 8-19 Health 1 MG tablet 00:00: 00 carbidopa-l 0 Yes UT evodopa 8-09 Health (Sinemet) 00:00: 25-100 MG 00 tablet simvastatin 0 Yes UT (Zocor) 20 7-21 Health MG tablet 00:00: 00 Toujeo Max Yes UT SoloStar 7-18 Health 300 UNIT/ML 00:00: solution 00 pen-injecto r montelukast Yes UT (Singulair) 6-10 Health 10 MG 00:00: tablet 00 metoprolol 0 Yes UT succinate 3-30 Health XL 00:00: (Toprol-XL) 00 50 MG 24 hr tablet Stiolto 2020-04 Yes UT Respimat 1-05 Health 2.5-2.5 00:00: MCG/ACT 00 aerosol solution inhaler Insulin 2019-04 Yes Inject Sam Glargine 06-04 into the [place] (TOUJEO MAX 17:23: skin. of SOLOSTAR 48 Medicin SC) e memantine 2019-04 Yes [id number] 10mg Take 10 mg Sam (NAMENDA) 06-04 9102 by mouth Colleg e 10 MG 17:23: two times of tablet 48 daily. Medicin e Insulin 2019-04 Yes Inject [facility] Glargine - into the [place] (TOUJEO MAX 17:23: skin. of SOLOSTAR 48 Medicin SC) e memantine 2019-04 Yes [id number] 10mg Take 10 mg Sam (NAMENDA) - 9102 by mouth Colleg e 10 MG 17:23: two times of tablet 48 daily. Medicin e insulin 2019-04 2020- No Inject Sam aspart 06-04 into the [place] (NOVOLOG) 16:53: 00:00 skin 3 of 100 UNIT/ML 02 :00 times Medicin injection daily e (before meals). CINNAMON 2020-0 Yes 1000mg QD Take 1,000 M ethodi BARK ORAL 6-[address] 11:01: mouth Hospita 48 daily. l cycloSPORIN 2020-0 Yes 5% QD Apply 5 % M ethodi E -[address] (RESTASIS) 11:01: daily. Hospi ta 0.05 % 48 l ophthalmic emulsion biotin 1 mg 2020-0 Yes 1mg QD Take 1 mg M ethodi capsule 6-[address] 11:01: daily. Hospita 48 l clonAZEPAM 2020-0 Yes 1mg QD Take 1 mg Me thodi (KlonoPIN) 6-[address] 1 MG tablet 11:01: daily. Hosp pedrito 48 l coenzyme 2020-0 Yes 10mg QD Take 10 mg Met hodi Q10 (CO 6-[address] Q-10) 10 mg 11:01: daily. Hosp pedrito capsule 48 l donepezil 2020-0 Yes 5mg QD Take 5 mg Met hodi (ARICEPT) 5 6-[address] MG tablet 11:01: nightly. Hosp pedrito 48 l DULoxetine 2020-0 Yes 60mg QD Take 60 mg M ethodi (CYMBALTA) 6-[address] 60 MG 11:01: daily. Hospita capsule 48 l budesonide 2020-0 Yes 6mg Q.[id number] Take 6 mg Methodi EC 6-02 [id number] mouth [address] (ENTOCORT 11:01: 3D (three) Hospi ta EC) 3 mg 24 48 times a l hr capsule day. omega 2020-0 Yes 1000mg QD Take 1,000 Meth escobar 3-dha-epa-f 6-[address] arnoldo oil 11:01: mouth Hospita (FISH OIL) 48 daily. l 1,000 mg (120 mg-180 mg) capsule gabapentin 2020-0 Yes 300mg Q.[id number] Take 300 Methodi (NEURONTIN) 6-02 [id number] mg by s t 300 mg 11:01: 3D mouth 3 Hospita capsule 48 (three) l times a day. garlic 1 mg 2020-0 Yes 1mg QD Take 1 mg M ethodi capsule 6-[address] 11:01: daily. Hospita 48 l ibandronate 2020-0 Yes 150mg Q30D Take 150 M ethodi (BONIVA) 6-[address] 150 mg 11:01: mouth Hospita tablet 48 every 30 l (thirty) days. Take in AM with glass of water prior to food, don't lie down for 30 minutes. latanoprost 2020-0 Yes 1[drp] QD Administer Methodi (XALATAN) 6-[address] 0.005 % 11:01: both eyes Hospi ta ophthalmic 48 nightly. l solution lisinopril 2020-0 Yes 20mg QD Take 20 mg M ethodi (PRINIVIL,Z 6-[address] ESTRIL) 20 11:01: daily. Hospi ta mg tablet 48 l magnesium 2020-0 Yes 400mg QD Take 400 Met hodi oxide 6-[address] (MAG-OX) 11:01: mouth Hospita 400 mg 48 daily. l (241.3 mg magnesium) tablet melatonin 3 2020-0 Yes 3mg QD Take 3 mg M ethodi mg tablet 6-[address] 11:01: nightly. Hospita 48 l memantine 2020-0 Yes 10mg Q.5D Take 10 mg Me thodi (NAMENDA) 6-[address] 10 MG 11:01: (two) Hospita tablet 48 times a l day. montelukast 2020-0 Yes 10mg QD Take 10 mg Methodi (SINGULAIR) 6-[address] 10 mg 11:01: nightly. Hospita tablet 48 l multivitami 2020-0 Yes 1{tbl} QD Take 1 Me thodi n with 6-[address] minerals 11:01: mouth Hospita tablet 48 daily. l niacin 500 2020-0 Yes 500mg QD Take 500 Me thodi MG tablet 6-[address] 11:01: mouth Hospita 48 daily with l breakfast. omeprazole 2020-0 Yes 40mg QD Take 40 mg M ethodi (PriLOSEC) 6-[address] 40 MG 11:01: daily. Hospita capsule 48 l oxybutynin 2020-0 Yes 5mg Q.5D Take 5 mg Me thodi (DITROPAN) 6-[address] 5 MG tablet 11:01: (two) Hospi ta 48 times a l day. simvastatin 2020-0 Yes 20mg QD Take 20 mg Methodi (ZOCOR) 20 6-[address] MG tablet 11:01: nightly. Hosp pedrito 48 l tiotropium- 2020-0 Yes QD Take 2 Meth escobar olodaterol 6-[address] (STIOLTO 11:01: s by mouth Hos gera RESPIMAT) 48 once l 2.5-2.5 daily. mcg/actuati on inhalation solution b complex 2020-0 Yes 1{tbl} QD Take 1 Meth escobar vitamins 6-[address] tablet 11:01: mouth Hospita 48 daily. l cholecalcif 2020-0 Yes 1000U QD Take 1,000 Methodi cristi, 6-[address] vitamin D3, 11:01: mouth Hospi ta (VITAMIN 48 daily. l D3) 1,000 unit capsule turmeric 2020-0 Yes 1{capsu QD Take 1 Meth escobar root 6-02 le} capsule by st extract 500 11:01: mouth Hospi ta mg capsule 48 daily. l liraglutide 2020-0 Yes QD Inject Meth escobar (VICTOZA) 6-[address] 0.6 mg/0.1 11:01: skin daily H ospita mL (18 mg/3 48 with l mL) pen breakfast. injector fluticasone 2019-0 Yes 2{spray QD 2 sprays Methodi propionate 6-02 } by Each st (FLONASE) 11:01: Nare route Ho spita 50 48 nightly. l mcg/actuati on nasal spray NovoFine NovoFine 0 Yes Na Bassett as Co mmon Plus Plus 2-12 directed Spirit 00:00: - [facility] 00 [facility] cyanocobala 2019-0 Yes [id number] 1000ug Methodi min 1-14 st injection 20:15: Hospita 1,000 mcg 00 l syringe Yes [id number] 20{syri 20 Met hodi with needle 1-14 nge} Syringes st 3 mL 25 x 00:00: take as Hospi ta 5/8" 00 directed l syringe (As directed). methotrexat Yes 2.5mg Take 2.5 M ethodi e 2.5 MG 5-[address] tablet 00:00: mouth. Hospita 00 l folic acid Yes 1mg QD Take 1 mg Me thodi (FOLVITE) 1 5-[address] MG tablet 00:00: daily. Hospit a 00 l insulin Yes 50U QD Inject 50 [facility] glargine 6-16 Units [facility] (TOUJEO 13:15: subcutaneo Medi jerod SOLOSTAR) 32 usly Center 300 unit/mL nightly . (1.5 mL) InPn syringe insulin Yes 10U Inject 10 [facility]I S t aspart 6-16 Units [facility] (NOVOLOG) 13:15: subcutaneo Me dical 100 unit/mL 32 usly 3 Center injection (three) times daily before meals. cycloSPORIN 0 Yes 1[drp] Q.5D Place [address] E 6-16 drop into [facility] (RESTASIS) 13:15: both eyes Me dical 0.05 % 32 2 (two) Center ophthalmic times emulsion daily. latanoprost 0 Yes 1[drp] QD Place [address] (XALATAN) 6-16 drop into [facility]ukes 0.005 % 13:15: both eyes Medic al ophthalmic 32 nightly. Cente r solution fluticasone 2018-0 Yes 2{puff} QD Inhale [address] (FLOVENT 6-16 puffs by [facility] DISKUS) 50 13:15: mouth via Va dical mcg/actuati 32 inhaler Cente r on diskus daily. inhaler clonazePAM 2017-0 Yes 1mg QD Take [address] (KLONOPIN) 6-16 by mouth [facility]ukes 1 MG tablet 13:15: nightly. Va dical 32 Center ibandronate 0 Yes 150mg Take [address] (BONIVA) 6-16 mg by [facility] 150 mg 13:15: mouth Medical tablet 32 every 30 Center (thirty) days Take in AM with glass of water prior to food, don't lie down for 30 minutes. . tiotropium- 0 Yes 2{puff} QD Inhale [address] olodaterol 6-16 puffs by [facility]ukes (STIOLTO 13:15: mouth via [facility] RESPIMAT) 32 inhaler Center 2.5-2.5 daily. mcg/actuati on Mist lisinopril 0 Yes 20mg QD Take [address] (PRINIVIL,Z 6-16 by mouth Luke s ESTRIL) 20 13:15: daily. Medic al MG tablet 32 Center omeprazole 0 Yes 40mg QD Take [address] (PRILOSEC) 6-16 by mouth [facility]ukes 40 MG 13:15: daily. Medical capsule 32 Center simvastatin 0 Yes 20mg QD Take [address] (ZOCOR) 20 6-16 by mouth [facility]ukes MG tablet 13:15: nightly. Medi jerod 32 Center gabapentin 20180 Yes 300mg Q.[id number] Take [address] (NEURONTIN) 6-16 [id number] mg by L ukes 300 MG 13:15: 3D mouth 3 Medical capsule 32 (three) Center times daily. DULoxetine 20180 Yes 60mg QD Take [address] (CYMBALTA) 6-16 by mouth [facility] 60 MG 13:15: daily. Medical capsule 32 Center montelukast 0 Yes 10mg QD Take [address] (SINGULAIR) 6-16 by mouth Luke s 10 mg 13:15: nightly. Medical tablet 32 Center albuterol 2018-0 Yes 2{puff} Inhale [address] HFA 6-16 puffs by [facility] (VENTOLIN 13:15: mouth via Med ical HFA) 90 32 inhaler Center mcg/actuati every 4 on inhaler (four) hours as needed for Wheezing. diclofenac 2018-0 Yes 75mg Q.5D Take [address] (VOLTAREN) 6-16 by mouth 2 Quinn es 75 MG EC 13:15: (two) Medical tablet 32 times Center daily. econazole 2018-0 Yes Q.5D Apply [facility] nitrate 6-16 topically [facility] (SPECTAZOLE 13:15: 2 (two) Med ical ) 1 % cream 32 times Center daily. urea 2018-0 Yes Q.5D Apply [facility] (CARMOL) 40 6-16 topically Quinn es % Crea 13:15: 2 (two) Medical topical 32 times Center cream daily. azelaic 2018-0 Yes QD Apply [facility] acid 6-16 topically [facility] (FINACEA) 13:15: daily. Medica l 15 % Foam 32 Center L. 2018-0 Yes 1{capsu QD Take [address] ACIDOPHILUS 6-16 le} capsule by Collette kes /BIFIDO 13:15: mouth Medical LONGUM 32 daily. Center (PROBIOTIC PEARLS ORAL) magnesium 2018-0 Yes 400mg QD Take [address] oxide 6-16 mg by [employer] (MAG-OX) 13:15: mouth Medical 400 mg 32 daily. Center tablet CINNAMON 2018-0 Yes 1000mg QD Take 1,[address] BARK 6-16 mg by [facility] (CINNAMON 13:15: mouth Medical ORAL) 32 daily. Center coenzyme 2018-0 Yes 200mg QD Take [address] Q10 200 mg 6-16 mg by [facility] capsule 13:15: mouth Medical 32 daily. [place] b complex 2018-0 Yes 1{tbl} QD Take [address] vitamins 6-16 tablet by [facility]ukes tablet 13:15: mouth Medical 32 daily. Center niacin 500 2018-0 Yes 500mg Q.5D Take [address] MG CR 6-16 mg by [facility]ukes capsule 13:15: mouth 2 Medical 32 (two) Center times daily. APPLE CIDER 2018-0 Yes 450mg Q.5D Take [address] VINEGAR 6-16 mg by [facility] ORAL 13:15: mouth 2 Medical 32 (two) Center times daily. turmeric 2018-0 Yes 1{capsu Q.5D Take [address] root 6-16 le} capsule by [employer] [employer] [facility] extract 500 13:15: mouth 2 Med ical mg Cap 32 (two) Center times daily. garlic 2018-0 Yes 1{capsu Q.5D Take [address] 1,000 mg 6-16 le} capsule by [employer] Cap 13:15: mouth 2 Medical 32 (two) Center times daily. multivitami 2018-0 Yes 1{capsu QD Take [address] n capsule 6-16 le} capsule by Ashwin s 13:15: mouth Medical 32 daily. [place] omega-3 2018-0 Yes 1{capsu QD Take 1 CHI S t fatty 6-16 le} capsule by [employer] acids-fish 13:15: mouth Medica l oil (FISH 32 daily. [place] OIL) 360-1,200 mg Cap cholecalcif 2017-0 Yes 5000U QD Take 5,[address] cristi, 6-16 Units by [employer] vitamin D3, 13:15: mouth Medic al 5,000 unit 32 daily. [place] Tab melatonin 2018-0 Yes 1{tbl} QD Take [address] 10 mg Tab 6-16 tablet by Ebenezer 13:15: mouth Medical 32 nightly. [place] liraglutide 2017-0 Yes 1.8mg Inject 1.[address] 0.6 mg/0.1 6-[facility] [place] mL (18 mg/3 13:15: subcutaneo Medical mL) PnIj 32 usly daily Cente r with breakfast. gabapentin 2017- Yes [facility] (NEURONTIN) 4-23 College 300 MG 00:00: of capsule 00 Medicin e gabapentin 2017-0 Yes [facility] (NEURONTIN) 4-23 College 300 MG 00:00: of capsule 00 Medicin e simvastatin 2018- Yes [facility] (ZOCOR) 20 4-11 College MG tablet 00:00: of 00 Medicin e simvastatin 2018-0 Yes [facility] (ZOCOR) 20 4-11 College MG tablet 00:00: of 00 Medicin e clonazepam 2017- Yes [facility] (KLONOPIN) 4-10 [place] 1 MG tablet 00:00: of 00 Medicin e lisinopril 2017- Yes [facility] (PRINIVIL, 4-10 College ZESTRIL) 20 00:00: of MG tablet 00 Medicin e montelukast 2017-0 Yes [facility] (SINGULAIR) 4-10 College 10 MG 00:00: of tablet 00 Medicin e clonazepam 0 Yes Sam (KLONOPIN) 4-10 College 1 MG tablet 00:00: of 00 Medicin e lisinopril 20180 Yes Sam (PRINIVIL, 4-10 College ZESTRIL) 20 00:00: of MG tablet 00 Medicin e montelukast 0 Yes Sam (SINGULAIR) 4-10 College 10 MG 00:00: of tablet 00 Medicin e fluticasone 0 Yes Sam (FLONASE) 4-04 College 50 MCG/ACT 00:00: of nasal spray 00 Medicin e fluticasone 0 Yes Sam (FLONASE) 4-04 [place] 50 MCG/ACT 00:00: of nasal spray 00 Medicin e latanoprost 0 2020- No Emi r (XALATAN) 4-03 12- College 0.005 % 00:00: 00:00 of ophthalmic 00 :00 Medicin solution e ibandronate 2017-0 Yes Sam (BONIVA) 3-29 College 150 MG 00:00: of tablet 00 Medicin e ibandronate 2017-0 Yes Sam (BONIVA) 3-29 College 150 MG 00:00: of tablet 00 Medicin e diclofenac 0 2020- No Sam (VOLTAREN) 3-29 12- College 75 MG EC 00:00: 00:00 of tablet 00 :00 Medicin e duloxetine 0 Yes Sam (CYMBALTA) 3-26 College 30 MG 00:00: of capsule 00 Medicin e duloxetine 2017-0 Yes Sam (CYMBALTA) 3-26 College 30 MG 00:00: of capsule 00 Medicin e FINACEA 15 0 2020- No Sam % FOAM 3-14 12-21 College 00:00: 00:00 of 00 :00 Medicin e duloxetine 2017-0 Yes Sam (CYMBALTA) 3-12 College 60 MG 00:00: of capsule 00 Medicin e duloxetine 2017-0 Yes Sam (CYMBALTA) 3-12 College 60 MG 00:00: of capsule 00 Medicin e VICTOZA 18 2020- No [facility] MG/3ML SOPN 3-04-03 College 00:00: 00:00 of 00 :00 Medicin e RESTASIS Yes Sam 0.05 % - College ophthalmic 00:00: of emulsion 00 Medicin e RESTASIS Yes [facility] 0.05 % - [place] ophthalmic 00:00: of emulsion 00 Medicin e Urea 39 % Yes APPLY 2 TO [facility] CREA 2-23 4 GRAMS TO College 00:00: THE of 00 AFFECTED Medicin AREA TWICE e DAILY. Urea 39 % Yes APPLY 2 TO [facility] CREA 2-23 4 GRAMS TO College 00:00: THE of 00 AFFECTED Medicin AREA TWICE e DAILY. econazole 2020- No APPLY 2 TO B [facility] nitrate 1 % 06-06 4 GRAMS TO C ollege cream 00:00: 00:00 THE of 00 :00 AFFECTED Medicin AREA TWICE e DAILY. (USE ALONG WITH UREA) MethylPREDN 2020- No [place] r ISolone 4 06-06 [place] MG TBPK 00:00: 00:00 of 00 :00 Medicin e omeprazole Yes Sam (PRILOSEC) 2- [place] 40 MG 00:00: of capsule 00 Medicin e omeprazole Yes [facility] (PRILOSEC) 2- [place] 40 MG 00:00: of capsule 00 Medicin e DICLOFENAC 2016-04 Yes TAKE 1 Unive rs 75 mg EC 2-27 TABLET BY ity of tablet 00:00: MOUTH [place] 00 TWICE Medical DAILY WITH Branch MEALS DICLOFENAC 2016-04 Yes TAKE 1 Unive rs 75 mg EC 2-27 TABLET BY ity of tablet 00:00: MOUTH [place] 00 TWICE Medical DAILY WITH Branch MEALS DICLOFENAC 2016-04 Yes TAKE 1 Unive rs 75 mg EC 2-27 TABLET BY ity of tablet 00:00: MOUTH [place] 00 TWICE Medical DAILY WITH Branch MEALS DICLOFENAC 2016-04 Yes TAKE 1 Unive rs 75 mg EC 2-27 TABLET BY ity of tablet 00:00: MOUTH [place] 00 TWICE Medical DAILY WITH Branch MEALS latanoprost Yes Univer s 0.005 % 01-03 ity of ophthalmic 00:00: [place] drops 00 Medical Branch latanoprost 2017-0 Yes Univer s 0.005 % 9-22 ity of ophthalmic 00:00: [place] drops Medical Branch latanoprost 2017-0 Yes Univer s 0.005 % 9-22 ity of ophthalmic 00:00: [place] drops Medical Branch latanoprost 2017-0 Yes Univer s 0.005 % 9-22 ity of ophthalmic 00:00: [place] drops Medical Branch fluticasone 2017-0 Yes Univer s 50 9-21 ity of mcg/actuati 00:00: [place] on nasal 00 Medical spray Branch fluticasone 2017-0 Yes Univer s 50 9-21 ity of mcg/actuati 00:00: [place] on nasal 00 Medical spray Branch fluticasone 2017-0 Yes Univer s 50 9-21 ity of mcg/actuati 00:00: [place] on nasal 00 Medical spray Branch fluticasone 2017-0 Yes Univer s 50 9-21 ity of mcg/actuati 00:00: [place] on nasal 00 Medical spray Branch DULoxetine 2017-0 Yes Univers 60 mg 9-18 ity of capsule 00:00: [place] [facility] gabapentin 2017-0 Yes Univers 300 mg 9-18 ity of capsule 00:00: [place] [facility] montelukast 2017-0 Yes Univer s 10 mg 9-18 ity of tablet 00:00: [place] [facility] DULoxetine 2017-0 Yes Univers 60 mg 9-18 ity of capsule 00:00: [place] [facility] gabapentin 2017-0 Yes Univers 300 mg 9-18 ity of capsule 00:00: [place] [facility] montelukast 2017-0 Yes Univer s 10 mg 9-18 ity of tablet 00:00: [place] [facility] DULoxetine 2017-0 Yes Univers 60 mg 9-18 ity of capsule 00:00: [place] [facility] gabapentin 2017-0 Yes Univers 300 mg 9-18 ity of capsule 00:00: [place] [facility] montelukast 2017-0 Yes Univer s 10 mg 9-18 ity of tablet 00:00: [place] [facility] DULoxetine 2017-0 Yes Univers 60 mg 9-18 ity of capsule 00:00: [place] [facility] gabapentin 2017-0 Yes Univers 300 mg 9-18 ity of capsule 00:00: [place] [facility] montelukast 2017-0 Yes Univer s 10 mg 9-18 ity of tablet 00:00: [place] [facility] clonazePAM 2017-0 Yes Univers 1 mg tablet 9-14 ity of 00:00: Medical Branch clonazePAM 2017-0 Yes Univers 1 mg tablet 9-14 ity of 00:00: Medical Branch clonazePAM 2017-0 Yes Univers 1 mg tablet 9-14 ity of 00:00: [place] [facility] clonazePAM 2017-0 Yes Univers 1 mg tablet 9-14 ity of 00:00: [place] [facility] RESTASIS 2017-0 Yes Univers 0.05 % 9-12 ity of ophthalmic 00:00: [place] drops Medical Branch ibandronate 2017-0 Yes Univer s 150 mg 9-12 ity of tablet 00:00: Medical Branch lisinopril 2017-0 Yes Univers 20 mg 9-12 ity of tablet 00:00: [place] [facility] RESTASIS 2017-0 Yes Univers 0.05 % 9-12 ity of ophthalmic 00:00: [place] drops Medical Branch ibandronate 2017-0 Yes Univer s 150 mg 9-12 ity of tablet 00:00: Medical Branch lisinopril 2017-0 Yes Univers 20 mg 9-12 ity of tablet 00:00: [place] [facility] RESTASIS 2017-0 Yes Univers 0.05 % 9-12 ity of ophthalmic 00:00: [place] drops Medical Branch ibandronate 2017-0 Yes Univer s 150 mg 9-12 ity of tablet 00:00: Medical Branch lisinopril 2017-0 Yes Univers 20 mg 9-12 ity of tablet 00:00: Medical Branch RESTASIS 2017-0 Yes Univers 0.05 % 9-12 ity of ophthalmic 00:00: [place] drops Medical Branch ibandronate 2017-0 Yes Univer s 150 mg 9-12 ity of tablet 00:00: [place] [facility] lisinopril 2017-0 Yes Univers 20 mg 9-12 ity of tablet 00:00: [place] [facility] omeprazole 2017-0 Yes Univers 40 mg 8-22 ity of capsule 00:00: [place] [facility] omeprazole 2017-0 Yes Univers 40 mg 8-22 ity of capsule 00:00: [place] [facility] omeprazole 2017-0 Yes Univers 40 mg 8-22 ity of capsule 00:00: [place] 00 Medical Branch omeprazole 2017-0 Yes Univers 40 mg 8-22 ity of capsule 00:00: [place] 00 Medical Branch NOVOLOG 2017-0 Yes Univers FLEXPEN 100 8-20 ity of unit/mL 00:00: [place] injection 00 Medical Branch NOVOLOG 2016-0 Yes Univers FLEXPEN 100 8-20 ity of unit/mL 00:00: [place] injection 00 Medical Branch NOVOLOG 2017-0 Yes Univers FLEXPEN 100 8-20 ity of unit/mL 00:00: [place] injection 00 Medical Branch NOVOLOG 2017-0 Yes Univers FLEXPEN 100 8-20 ity of unit/mL 00:00: [place] injection 00 Medical Branch TOUJEO 2017 Yes Univers SOLOSTAR 8-03 ity of 300 unit/mL 00:00: [place] (1.5 mL) 00 Medical InPn Branch VICTOZA Yes Univers 3-IAN 0.6 8-03 ity of mg/0.1 mL 00:00: [place] (18 mg/3 00 Medical mL) Branch injection TOUJEO Yes Univers SOLOSTAR 8-03 ity of 300 unit/mL 00:00: [place] (1.5 mL) 00 Medical InPn Branch VICTOZA 0 Yes Univers 3-IAN 0.6 8-03 ity of mg/0.1 mL 00:00: [place] (18 mg/3 00 Medical mL) Branch injection TOUJEO Yes Univers SOLOSTAR 8-03 ity of 300 unit/mL 00:00: [place] (1.5 mL) 00 Medical InPn Branch VICTOZA 0 Yes Univers 3-IAN 0.6 8-03 ity of mg/0.1 mL 00:00: [place] (18 mg/3 00 Medical mL) Branch injection TOUJEO Yes Univers SOLOSTAR 8-03 ity of 300 unit/mL 00:00: [place] (1.5 mL) 00 Medical InPn Branch VICTOZA [id number] Yes Univers 3-IAN 0.6 8-03 ity of mg/0.1 mL 00:00: [place] (18 mg/3 00 Medical mL) Branch injection simvastatin 0 Yes Univer s 20 mg 7-17 ity of tablet 00:00: [place] 00 Medical Branch simvastatin 2016-0 Yes Univer s 20 mg 7-17 ity of tablet 00:00: [address] simvastatin 2017- Yes Univer s 20 mg 7-17 ity of tablet 00:00: [address] simvastatin Yes Univer s 20 mg 7-17 ity of tablet 00:00: [address] Latanoprost Latanoprost Yes Na Bassett 1 drop Common into Spirit affected - CHI eye in the [facility] Gabapentin Gabapentin Yes Na Bassett 1 capsule Common Spirit [facility] Memantine Memantine Yes Na Bassett TAKE 1 Common HCl HCl TABLET BY Spirit MOUTH - CHI TWICE DAILY [facility] Oxybutynin Oxybutynin Yes Na Bassett 1 tablet Common Chloride Chloride [facility] Vitamin D3 Vitamin D3 Yes Na Bassett one tab Common [facility] Ketoconazol Ketoconazol Yes Na Bassett 1 Common e e applicatio Spirit n to - CHI affected [facility] BD Pen BD Pen Yes Na Bassett as Common Needle Vita Needle Vita directed Spirit U/F U/F - [facility] Zofran ODT Zofran ODT Yes Na Bassett 1tablet [facility] Spirit [facility] Econazole Econazole Yes Na Bassett 1 Co mmon Nitrate Nitrate applicatio Spi rit n to - CHI affected [facility] Flonase Flonase Yes Na Bassett USE 2 Commo n SPRAYS IN Spirit EACH - CHI NOSTRIL [facility] Stiolto Stiolto Yes Na Bassett 2 puffs Com mon Respimat Respimat [facility] Toujeo Toujeo Yes Na Bassett INJECT Common SoloStar SoloStar SUBCUTANEO S pirit USLY 50 - CHI UNITS ONCE St DAILY [facility] Tylenol Tylenol Yes Na Bassett 1 tablet Co mmon as needed Spirit [facility] Fish Oil Fish Oil Yes Na Bassett 1 capsule Common Spirit [facility] Simvastatin Simvastatin Yes Na Bassett TAKE 1 Common TABLET BY Spirit MOUTH EACH - CHI EVENING St ONCE DAILY [facility] Restasis Restasis Yes Na Bassett 1 drop Co mmon into Spirit affected - CHI eye [facility] Lisinopril Lisinopril Yes Na Bassett 1 tablet Common Spirit - [facility] Fluoxetine Fluoxetine Yes Na Bassett 1 capsule Common HCl HCl Spirit - [facility] ProAir HFA ProAir HFA Yes Na Bassett 2 puffs as Common needed [facility] - [facility]I [facility] Prilosec Prilosec Yes Na Bassett TAKE 1 Co mmon CAPSULE BY Spirit MOUTH - CHI DAILY [facility] Boniva Boniva Yes Na Bassett TAKE 1 Common TABLET(S) Spirit BY MOUTH - CHI EVERY [facility] Lisinopril Lisinopril Yes Na Bassett 1 tablet Common Spirit - [facility] NovoFine NovoFine Yes Na Bassett as Comm on directed [facility] Carafate Carafate Yes Na Bassett 1 tablet Common at bedtime Spirit on an - CHI empty [facility] before Medical meals Center Clonazepam Clonazepam Yes Na Bassett 1 tablet Common on the Spirit tongue and - CHI allow to [facility] Donepezil Donepezil Yes Na Bassett TAKE 1 Common HCl HCl TABLET BY Spirit MOUTH AT - CHI BEDTIME [facility] Toujeo Max Toujeo Max Yes Na Bassett 22 units Common SoloStar SoloStar daily and Sp mj increase - CHI by [address] every 3 [facility] [place] days until Medical fbg less Center 100 max of 30 units daily. Cymbalta Cymbalta Yes Na Bassett TAKE 1 Co mmon CAPSULE Spirit WITH A - CHI 30MG St CAPSULE TO [facility] EQUAL 90MG Medical ONCE DAILY Center Super B Super B Yes Na Bassett not Common Complex/C Complex/C defined Sp mj - CHI [facility] Neurontin Neurontin Yes Na Bassett TAKE 1 Common CAPSULE BY Spirit MOUTH 3 - CHI TIMES [facility] Metoprolol Metoprolol Yes Na Bassett 1/2 tablet Common Succinate Succinate Spiri t ER ER - CHI [facility] Terbinafine Terbinafine Yes Na Bassett 1 tablet Common HCl HCl [facility] Victoza Victoza Yes Na Bassett INJECT Comm on 1.8MG Spirit SUBCUTANEO - CHI USLYDAILY [facility] Singulair Singulair Yes Na Bassett TAKE 1 Common TABLET BY Spirit MOUTH IN - CHI THE [facility] Melatonin Melatonin Yes Na Bassett as Co mmon ER ER directed [facility] Cymbalta Cymbalta Yes Na Bassett TAKE 1 Co mmon CAPSULE BY Spirit MOUTH - CHI DAILY WITH St 60 MG TO [facility] EQUAL 90 Medical MG Center NovoLog NovoLog Yes Na Bassett INJECT 5 Co mmon Flexpen Flexpen UNITS Spirit BEFORE - [facility] EACH MEAL St (3 TIMES A [facility] DAY). MAX Medical DOSE: 45 Center UNITS Aspir-81 Aspir-81 Yes Na Bassett 1 tablet Common Spirit [facility] Montelukast Montelukast Yes Na Bassett TAKE 1 Common Sodium Sodium TABLET BY Spirit MOUTH IN - [facility] Remicade Remicade Yes Na Bassett as Comm on directed [facility] Budesonide Budesonide Yes Na Bassett as Common directed [facility] Clonazepam Clonazepam Yes Na Bassett 1 tablet Common [facility] Simvastatin Simvastatin Yes Na Bassett 1 tablet Common in the [facility] evening [facility] Flonase Flonase Yes Na Bassett USE 2 Commo n Allergy Allergy SPRAYS IN [facility] it Relief Relief EACH - CHI NOSTRIL St DAILY Once [facility] a day Medical Nasally 30 Center days Immunizations Ordered Immunization Filled Immunization Date Status Commen ts Source Name Name Td Td 2019-11-26 Completed Common [facility] 00:00:00 [facility] FluAD FluAD 2019-01-26 Completed Common [facility] 00:00:00 [facility] Vital Signs Vital Name Observation Time Observation Value Comments Source Body height 2021-12-18 19:01:00 160 cm [facility] Body weight 2021-12-18 19:01:00 69.4 kg [facility] BMI 2021-12-18 19:01:00 27.10 kg/m2 [facility] Systolic blood 2021-03-06 20:53:00 142 mm[Hg] Univer sity of pressure [facility] Diastolic blood 2021-03-06 20:53:00 81 mm[Hg] Unive rsity of [facility] Heart rate 2021-03-06 20:53:00 59 /min [facility] Body height 2021-03-06 20:53:00 160 cm [facility] Body weight 2021-03-06 20:53:[address] [facility] BMI 2021-03-06 20:53:00 26.64 kg/m2 [facility] Systolic blood 2020-04-03 17:22:00 122 mm[Hg] [facility] pressure Medicine Diastolic blood 2020-04-03 17:22:00 74 mm[Hg] [facility] of pressure Medicine Heart rate 2020-04-03 17:22:00 71 /min [facility] Body temperature 2020-04-03 17:22:00 35.94 Roya [facility] Body height 2020-04-03 17:22:00 160 cm [facility] Body weight 2020-04-03 17:22:00 64.864 kg [facility] BMI 2020-04-03 17:22:00 25.33 kg/m2 [facility] Systolic blood 2020-04-03 17:22:00 122 mm[Hg] [facility] pressure Medicine Diastolic blood 2020-04-03 17:22:00 74 mm[Hg] [facility] of pressure Medicine Heart rate 2020-04-03 17:22:00 71 /min [facility] Body temperature 2020-04-03 17:22:00 35.94 Roya [facility] Body height 2020-04-03 17:22:00 160 cm [facility] Body weight 2020-04-03 17:22:00 64.864 kg [facility] BMI 2020-04-03 17:22:00 25.33 kg/m2 [facility] Body height 2020-04-03 16:49:00 160 cm [facility] Body weight 2020-04-03 16:49:00 64.864 kg [facility] BMI 2020-04-03 16:49:00 25.33 kg/m2 [facility] Body height 2020-04-03 16:49:00 160 cm [facility] Body weight 2020-04-03 16:49:00 64.864 kg [facility] BMI 2020-04-03 16:49:00 25.33 kg/m2 [facility] Procedures Procedure Date / Time Performed Performing Clinician Sourc e NM BRAIN SPECT W I 123 2021-09-26 20:20:00 Orlando Hernandez [facility] Plan of Care Planned Activity Planned Date Details Comments Source Future Scheduled 2029-11-25 DTAP/TDAP/TD [facility] 00:00:00 VACCINES (2 - Td or Medical Center Tdap) [code = DTAP/TDAP/TD VACCINES (2 - Td or Tdap)] Future Scheduled 2021-12-18 HEPATITIS B Denominational Test 13:43:12 VACCINES (1 of 3 - Hospital 3-dose series) [code = HEPATITIS B VACCINES (1 of 3 - 3-dose series)] Future Scheduled 2021-12-18 Hepatitis C [facility] Test 13:43:12 screening Hospital (procedure) [code = 863263693] Future Scheduled 2021-12-18 SHINGLES VACCINES Method ist Test 13:43:12 (1 of 2) [code = Hospital SHINGLES VACCINES (1 of 2)] Future Scheduled 2021-12-18 COVID-19 VACCINE (3 Meth odist Test 13:43:12 - Booster for Hospital Moderna series) [code = COVID-19 VACCINE (3 - Booster for Moderna series)] Future Scheduled 2021-12-18 65+ PNEUMOCOCCAL Methodi [facility] Test 13:43:12 VACCINE (2 - PCV) Hospital [code = 65+ PNEUMOCOCCAL VACCINE (2 - PCV)] Future Scheduled 2021-12-18 INFLUENZA VACCINE Method ist Test 13:43:12 [code = INFLUENZA Hospital VACCINE] Future Scheduled 2021-12-[address] [facility] Test 00:00:00 (#1) [code = Medical Center INFLUENZA VACCINE (#1)] Future Scheduled 2021-04-[address] [facility] Test 00:00:00 SCREENING (12+) Medical Cent er [code = DEPRESSION SCREENING (12+)] Future Scheduled 2021-04-[address] [facility] Test 00:00:00 SCREENING [code = Medical Ce nter FALLS RISK SCREENING] Future Scheduled 2021-02-02 P[address]UM[address]OCCAL [address] Test 00:00:00 YRS (2 - PCV) [code Medical Center = PNEUMOCOCCAL 65+ YRS (2 - PCV)] Future Scheduled 2008-12-[address] [facility] Test 00:00:00 WELLNESS (YEAR 2 or Medical Center FIRST YEAR if no IPPE) [code = MEDICARE ANNUAL WELLNESS (YEAR 2 or FIRST YEAR if no IPPE)] Future Scheduled [address] [facility] Test 00:00:00 (1 of 2) [code = Medical Geeta ter SHINGLES VACCINES (1 of 2)] Future Scheduled [address] [facility] Test 00:00:00 SCREENING [code = Medical Ce nter HEPATITIS C SCREENING] Future Scheduled 1943-06-21 COVID-[address] [facility] Test 00:00:00 (#1) [code = Medical Center COVID-19 VACCINE (#1)] Future Scheduled 1942 DXA SCAN [code = [facility] Test 00:00:00 DXA SCAN] Medical Center Future Scheduled ORT - XR HIP RIGHT Ordered: [employer] Test 2V (CHARGE ONLY) 04/03/2020 of Medicine [code = 80242] Future Scheduled ORT - XR PELVIS AP Ordered: [employer] Test (CHARGE ONLY) [code 04/03/2020 of Medic ine = 10661] Future Scheduled BMI FOLLOW UP PLAN [employer] Test [code = BMI FOLLOW of Medici ne UP PLAN] Future Scheduled HEPATITIS C [facility] SCREENING [code = of Medicin e HEPATITIS C SCREENING] Future Scheduled ZOSTER VACCINE (1 [facility] Test of 2) [code = of Medicine ZOSTER VACCINE (1 of 2)] Future Scheduled MEDICARE AWV [facility] Test (Initial) [code = of Medicin e MEDICARE AWV (Initial)] Future Scheduled FALL SCREEN [code = [employer] FALL SCREEN] of Medicine Future Scheduled OSTEOPOROSIS [facility] Test SCREENING [code = of Medicin e OSTEOPOROSIS SCREENING] Future Scheduled TETANUS SHOT [facility] [employer] Test (ADULT) [code = of Medicine TETANUS SHOT (ADULT)] Future Scheduled BMI FOLLOW UP PLAN [employer] Test [code = BMI FOLLOW of Medici ne UP PLAN] Future Scheduled HEPATITIS C [facility] [employer] Test SCREENING [code = of Medicin e HEPATITIS C SCREENING] Future Scheduled ZOSTER VACCINE (1 [facility] Test of 2) [code = of Medicine ZOSTER VACCINE (1 of 2)] Future Scheduled MEDICARE AWV [facility] [facility] Test (Initial) [code = of Medicin e MEDICARE AWV (Initial)] Future Scheduled FALL SCREEN [code = [employer] FALL SCREEN] of Medicine Future Scheduled OSTEOPOROSIS [facility] [employer] Test SCREENING [code = of Medicin e OSTEOPOROSIS SCREENING] Future Scheduled TETANUS SHOT [facility] [employer] Test (ADULT) [code = of Medicine TETANUS SHOT (ADULT)] Future Scheduled XR C-SPINE AP, LAT, 1 Occurrences [employer] Test OBLIQUES 5 VWS starting of Medicine [code = 87005-2] 04/03/2020 until 11/01/2020 Future Scheduled XR THORACIC SPINE 1 Occurrences [employer] Test (COMPLETE) [code = [place] [address]-3] 04/03/2020 until 11/01/2020 Future Scheduled XR LUMBAR SPINE 2 1 Occurrences [employer] Test VIEWS AP AND LAT starting of Medicine [code = 11653-1] 04/03/2020 until 11/01/2020 Encounters Start End Encounter Admission Attending Care Care Encounter Source Date/Time Date/Time Type Type Clinicians Facility Department ID 2021-12-18 Outpatient [facility] [id number] [place] 12:59:28 [id number] [facility] 2021-12-06 Outpatient [facility] [id number] [place] 15:09:40 [id number] [facility] 2021-11-13 Outpatient Bassett, Na STLMLC STLC [id number] 2 Common 14:29:01 [facility] 2021-09-21 Outpatient Bassett, Na STLMLC STLC [id number] 2 Common 07:22:00 [facility] 2021-09-12 Outpatient Bassett, Na STLMLC STLMLC [id number] 2 Common 08:38:00 [facility] 2021-06-29 Outpatient Bassett, Na STLMLC STLC [id number] 2 Common 16:40:00 [facility] 2021-05-09 Outpatient Bassett, Na STLMLC STLC [id number] 2 Common 14:22:23 [id number] [facility] 2021-05-09 Outpatient Bassett, Na STLMLC STLMLC [id number] 2 Common 12:27:36 [id number] [facility] 2021-05-09 Outpatient Bassett, Na STLMLC STLMLC [id number] 2 Common 11:57:36 [id number] [facility] 2021-05-09 Outpatient Bassett, Na STLMLC STLMLC [id number] 2 Common 11:56:47 [id number] [facility] 2021-05-09 Outpatient Bassett, Na STLMLC STLMLC [id number] 2 Common 11:17:40 [id number] [facility] 2021-05-09 Outpatient Bassett, Na STLMLC STLMLC [id number] 2 Common 11:17:26 [id number] [facility] 2021-05-09 Outpatient Bassett, Na STLMLC STLMLC [id number] 2 Common 11:06:28 [id number] [facility] 2021-05-09 Outpatient Bassett, Na STLMLC STLMLC [id number] 2 Common 11:02:04 [id number] [facility] 2021-05-09 Outpatient Bassett, Na STLMLC STLMLC [id number] 2 Common 11:00:00 [id number] [facility] 2021-05-09 Outpatient Bassett, Na STLMLC STLMLC [id number] 2 Common 10:58:35 [id number] [facility] 2021-12-18 2021-12-18 Outpatient [facility] [id number] [place] 00:00:00 14:55:38 Health 2021-12-18 2021-12-18 Office Replaced by [facility] [id number] [place] 14:15:00 14:55:14 Visit Cameron SUGAR 350.1.13.58 H [facility] 9.2.7.2.[address] [id number] 1 2021-12-05 2021-12-05 ambulatory STLMLC STLMLC [id number] Common 00:00:00 00:00:00 [facility] 2021-12-04 2021-12-04 ambulatory STLMLC STLMLC [id number] Common 00:00:00 00:00:00 [facility] 2021-11-23 2021-11-23 ambulatory STLMLC STLMLC [id number] Common 00:00:00 00:00:00 [facility] 2021-11-21 2021-11-21 ambulatory STLMLC STLMLC [id number] Common 00:00:00 00:00:00 [facility] 2021-11-15 2021-11-15 ambulatory STLMLC STLMLC [id number] Common 00:00:00 00:00:00 [facility] 2021-11-15 2021-11-15 ambulatory STLMLC STLMLC [id number] Common 00:00:00 00:00:00 [facility] 2021-11-01 2021-11-01 ambulatory STLMLC STLMLC [id number] Common 00:00:00 00:00:00 [facility] 2021-10-25 2021-10-25 ambulatory STLMLC STLMLC [id number] Common 00:00:00 00:00:00 [facility] 2021-10-17 2021-10-17 ambulatory STLMLC STLMLC [id number] Common 00:00:00 00:00:00 [facility] 2021-10-17 2021-10-17 ambulatory STLMLC STLMLC [id number] Common 00:00:00 00:00:00 [facility] 2021-10-05 2021-10-05 ambulatory STLMLC STLMLC [id number] Common 00:00:00 00:00:00 [facility] 2021-09-26 2021-09-26 [place] [id number] [facility] 09:04:13 23:59:00 Encounter Orlando Hooker 80008.1.[address] 3.430.2.7 Hospit a .3.125781 l .8 2021-09-26 2021-09-26 [place] [id number] Methodi 09:04:01 23:59:00 Encounter Orlando HectorKwasi [id number] 3.430.2.7 Hospit a .3.992616 l .8 2021-09-26 2021-09-26 [facility] [id number] [place] 00:00:00 00:00:00 [place] [address] 2021-09-26 2021-09-26 [facility] [id number] [place] 00:00:00 00:00:00 [place] [address] 2021-09-26 2021-09-26 Travel 1.2.840.1 1.2.321.061 [id number] Methodi 00:00:00 00:00:[address] 3.430.2.7 0.2.7.3.698 Ho spita .3.710010 084.8 l .8 2021-09-21 2021-09-21 ambulatory STLMLC STLMLC [id number] Common 00:00:00 00:00:00 [facility] 2021-09-19 2021-09-19 Travel 1.2.840.1 1.2.690.479 [id number] Methodi 00:00:00 00:00:[address] 3.430.2.7 0.2.7.3.698 Ho spita .3.512391 084.8 l .8 2021-09-18 2021-09-18 ambulatory STLMLC STLMLC [id number] Common 00:00:00 00:00:00 [facility] 2021-09-18 2021-09-18 [facility] 1.2.840.1 [id number] Methodi 00:00:00 00:00:00 Orders Orlando Hooker 53778.1.[address] 3.430.2.7 Hospit a .3.703323 l .8 2021-09-14 2021-09-14 ambulatory STLMLC STLMLC [id number] Common 00:00:00 00:00:00 [facility] 2021-08-07 2021-08-07 ambulatory STLMLC STLMLC [id number] Common 00:00:00 00:00:00 [facility] 2021-08-03 2021-08-03 Telephone Joselin RUST 1.2.840.114 [id number] Univers 00:00:00 00:00:00 [facility] 350.1.13.10 ity of [place] 4.2.7.2.686 [place] [facility] [phone] [place] [id number] Branch BUILDING 2021-07-31 2021-07-31 ambulatory STLMLC STLMLC [id number] Common 00:00:00 00:00:00 [facility] 2021-07-30 2021-07-30 Telephone Georgette RUST 1.2.175.228 [id number] Univers 00:00:00 00:00:00 [facility] 350.1.13.10 it y of CLEAR 4.2.7.2.686 Liz german WHITE [phone] [place] [address] Branch OFFICE BUILDING 2021-06-28 2021-06-28 ambulatory STLMLC STLMLC [id number] Common 00:00:00 00:00:00 [facility] 2021-05-15 2021-05-15 ambulatory STLMLC STLMLC [id number] Common 00:00:00 00:00:00 [facility] 2021-04-19 2021-04-19 ambulatory STLMLC STLMLC [id number] Common 00:00:00 00:00:00 [facility] 2021-04-18 2021-04-18 ambulatory STLMLC STLMLC [id number] Common 00:00:00 00:00:00 [facility] 2021-04-18 2021-04-18 ambulatory STLMLC STLMLC [id number] Common 00:00:00 00:00:00 [facility] 2021-03-27 2021-03-27 ambulatory STLMLC STLMLC [id number] Common 00:00:00 00:00:00 [facility] 2021-03-26 2021-03-26 ambulatory STLMLC STLMLC [id number] Common 00:00:00 00:00:00 [facility] 2021-03-21 2021-03-21 ambulatory STLMLC STLMLC [id number] Common 00:00:00 00:00:00 [facility] 2021-03-06 2021-03-06 Office Georgette RUST 1.2.840.114 [id number] 14:02:51 16:29:31 Visit [facility] 350.1.13.10 y of CLEAR 4.2.7.2.686 Liz WHITE [id number] [address] OFFICE BUILDING 2021-01-29 2021-01-29 Outpatient STLMLC STLMLC [id number] Common 00:00:00 00:00:00 [facility] 2021-01-16 2021-01-16 Telephone Anton, 1.2.840.7 [id number] Methodi 00:00:00 00:00:[address] 3.430.2.7 Hospit a .3.554932 l .8 2021-01-05 2021-01-05 Outpatient MHIE MHIE [id number] Memoria 15:00:00 15:00:00 00 l Ramiro 2021-01-05 2021-01-05 Outpatient MHIE MHIE [id number] Memoria 15:00:00 15:00:00 00 l Ramiro 2020-12-25 2020-12-25 Outpatient STLMLC STLMLC [id number] Common 00:00:00 00:00:00 [facility] 2020-12-20 2020-12-20 Ambulatory nullFlavo MNA [id number] Memoria 19:15:00 19:15:00 Pre-Reg r Neurology 00 l Anup Rubio 2020-12-20 2020-12-20 Outpatient YANET Skaggs 004 [id number] 14:15:00 14:15:00 Kayden Susan Cr 2020-12-07 2020-12-07 Outpatient STLMLC STLMLC [id number] Common 00:00:00 00:00:00 [facility] 2020-12-05 2020-12-05 Outpatient STLMLC STLMLC [id number] Common 00:00:00 00:00:00 [facility] 2020-12-02 2020-12-02 Outpatient STLMLC STLMLC [id number] Common 00:00:00 00:00:00 [facility] 2020-08-30 2020-08-30 Outpatient STLMLC STLMLC [id number] Common 00:00:00 00:00:00 [facility] 2020-08-25 2020-08-25 Outpatient STLMLC STLMLC [id number] Common 00:00:00 00:00:00 [facility] 2020-07-02 2020-07-02 Outpatient STLMLC STLMLC [id number] Common 00:00:00 00:00:00 [facility] 2020-05-24 2020-05-24 Outpatient STLMLC STLMLC [id number] Common 00:00:00 00:00:00 [facility] 2020-05-18 2020-05-18 Outpatient STLMLC STLMLC [id number] Common 00:00:00 00:00:00 [facility] 2020-04-03 2020-04-03 Office ROJELIO Whitney 1.2.840.114 [id number] [facility] 11:14:50 14:12:42 Visit [place] AMBULATOR 350.1.13.21 College Y 0.2.7.2.686 of [id number] [facility] 800 e 2020-04-03 2020-04-03 Office ROJELIO Whitney 1.2.840.114 [id number] 11:14:50 14:12:42 Visit [place] AMBULATOR 350.1.13.21 Y 0.2.7.2.686 [id number] [facility] 2020-04-03 2020-04-03 Office ROJELIO Leslie 1.2.840.114 [id number] [facility] 09:55:09 13:25:28 Visit Junior AMBULATOR 350.1.13.21 College Y 0.2.7.2.686 of [id number] [facility] 600 e 2020-04-03 2020-04-03 Office ROJELIO Leslie 1.2.840.114 [id number] 09:55:09 13:25:28 Visit Junior AMBULATOR 350.1.13.21 Y 0.2.7.2.686 [id number] 600 2020-04-03 2020-04-03 [id number] [facility] 00:00:00 00:00:00 [place] 2020-04-03 2020-04-03 Outpatient IRIS WHITNEY [facility] [id number] [facility] 00:00:00 00:00:00 [place] 2020-04-03 2020-04-03 [facility] [id number] [facility] 00:00:00 00:00:00 [place] 2020-02-28 2020-02-28 Outpatient STLMLC STLMLC [id number] Common 00:00:00 00:00:00 [facility] 2020-02-03 2020-02-03 Outpatient STLMLC STLMLC [id number] Common 00:00:00 00:00:00 [facility] 2020-02-01 2020-02-01 [id number] [address] [place] [address] 00:00:00 00:00:00 TYLER [address] 2020-01-24 2020-01-24 Outpatient STLMLC STLMLC [id number] Common 00:00:00 00:00:00 [facility] 2019-11-26 2019-11-26 [facility] [id number] Common 09:00:00 09:00:00 [facility] 2019-10-20 2019-10-20 [facility] [id number] Common 09:20:00 09:20:00 [facility] 2019-10-20 2019-10-20 [facility] [id number] Common 09:00:00 09:00:[address] [facility] 2019-10-18 2019-10-18 [facility] [id number] Common 14:40:00 14:40:[address] [facility] [facility] 2019-10-18 2019-10-18 [facility] [id number] Common 07:56:00 07:56:[address] [facility] [facility] 2019-09-14 2019-09-14 Outpatient ANTON, [facility] [id number] [address] [place] [address] 00:00:00 00:00:00 DARVIN [address] 2019-07-20 2019-07-20 [facility] [id number] Common 09:20:00 09:20:[address] [facility] 2019-06-16 2019-06-16 [id number] Common 10:47:00 10:47:[address] [facility] 2019-05-26 2019-05-26 [id number] Common 10:40:00 10:40:[address] [facility] 2019-05-20 2019-05-20 [facility] [id number] Common 15:50:00 15:50:[address] [facility] 2019-04-26 2019-04-26 [facility] [id number] Common 11:20:00 11:20:[address] [facility] 2019-03-26 2019-03-31 Inpatient ANTON, [facility] [id number] [place] 00:00:00 00:00:00 DARVIN [address] 2019-03-24 2019-03-24 [facility] [id number] Common 16:48:00 16:48:[address] [facility] 2019-03-18 2019-03-18 Outpatient ANTON, [facility] [id number] [address] [place] [address] 00:00:00 00:00:00 [address] [facility] 2019-03-16 2019-03-16 [facility] [id number] Common 13:20:00 13:20:[address] [facility] 2019-02-18 2019-02-18 [facility] [id number] Common 10:33:00 10:33:[address] [facility] 2019-01-26 2019-01-26 [facility] [id number] Common 13:40:00 13:40:[address] [facility] 2018-12-29 2018-12-29 [facility] [id number] Common 08:00:00 08:00:[address] [facility] 2018-11-19 2018-11-19 [facility] [id number] Common 09:40:00 09:40:[address] [facility] 2018-09-24 2018-09-24 [facility] [id number] Common 15:43:00 15:43:[address] [facility] 2018-07-16 2018-07-16 [facility] [id number] Common 10:00:00 10:00:[address] [facility] 2018-04-16 2018-04-16 [facility] [id number] Common 09:30:00 09:30:[address] [facility] 2018-03-25 2018-03-25 [facility] [id number] Common 13:50:00 13:50:[address] [facility] 2018-01-29 2018-01-29 [facility] [id number] Common 10:29:00 10:29:[address] [facility] 2018-01-14 2018-01-14 [facility] [id number] Common 08:45:00 08:45:[address] [facility] 2017-10-16 2017-10-16 [facility] [id number] Common 09:15:00 09:15:[address] [facility] 2017-10-06 2017-10-06 [facility] [id number] Common 15:44:00 15:44:[address] [facility] 2017-09-19 2017-09-19 [facility] [id number] Common 14:57:00 14:57:[address] [facility] 2017-09-12 2017-09-12 [facility] [id number] Common 15:09:00 15:09:[address] [facility] 2017-09-04 2017-09-04 [facility] [id number] Common 14:45:00 14:45:[address] [facility] Results Test Description Test Time Test Comments Results Result [facility] e Comments RAD, SPINE, 2020-03-15 Reason for LUMBAR, 2 OR 3 1 Exam:->scoliosis, VIEWS 14:54:[address] scoliosis type, [facility] - MEDICAL unspecified spinal CENTERName: Марина SEVILLA BRIGID HENRY : Exam:->chrnoic 1940 Sex: bilateral low back F pain without sciatica FINAL REPORT Exam: Thoracic spine two views and lumbar spine two views History: Scoliosis, compression deformity Comparison: None. Findings: Bone demineralization. Spinal cord stimulator with tip at the level of the T7 vertebral body. No visualized discontinuity. Multilevel degenerative disc of the thoracic spine. Wedge deformity of the L1 vertebral body, age indeterminate with approximately 20% height loss. Leftward lumbar scoliosis of 24 degrees taken from L2 through L5. Rightward translation of L2 on L3. Advanced multilevel degenerative disc of the lumbar spine most prominent left aspect of L1-L2 and diffusely at L2-L3 extending to L5-S1. Lower lumbar facet arthrosis. Impression: Leftward lumbar scoliosis with advanced multilevel advanced degenerative disc. Age-indeterminate compression deformity of L1. Signed: Pravin Newman MDReport Verified Date/Time: 04/03/2020 14:54:19 Reading Location: [facility] Reading Room [address] [place] [address] , SPINE, 2020-03-15 Reason for THORACIC, 2 1 Exam:->scoliosis, VIEWS 14:54:[address] scoliosis type, [facility] unspecified spinal CENTERName: [facility], region,Reason for BRIGID HENRY : Exam:->chronic 1940 Sex: bilateral low back F pain without sciaticaReason for FINAL Exam:->compresseio REPORT PATIENT ID: n deformity of [id number] Exam: Thoracic verebra spine two views and lumbar spine two views History: Scoliosis, compression deformity Comparison: None. Findings: Bone demineralization. Spinal cord stimulator with tip at the level of the T7 vertebral body. No visualized discontinuity. Multilevel degenerative disc of the thoracic spine. Wedge deformity of the L1 vertebral body, age indeterminate with approximately 20% height loss. Leftward lumbar scoliosis of 24 degrees taken from L2 through L5. Rightward translation of L2 on L3. Advanced multilevel degenerative disc of the lumbar spine most prominent left aspect of L1-L2 and diffusely at L2-L3 extending to L5-S1. Lower lumbar facet arthrosis. Impression: Leftward lumbar scoliosis with advanced multilevel advanced degenerative disc. Age-indeterminate compression deformity of L1. Signed: Pravin Newman Verified Date/Time: 04/03/2020 14:54:19 Reading Location: [facility] [employer] Reading Room [address] [place] [address] , SPINE, 2020-03-15 Reason for CERVICAL, 1 Exam:->scoliosis, COMPLETE (MIN 4 14:49:[address] VIEWS) scoliosis type, [facility] - MED[facility] unspecifed CENTERName: DI, spinalregion BRIGID HENRY : 1940 Sex: F FINAL REPORT Exam: Cervical spine two views History: Scoliosis Comparison: None. Findings: No fracture. Anterolisthesis of C3 on C4 and C4 on C5. Multilevel degenerative disc throughout the cervical spine most severe at C5-C6 and C6-C7 with possible fusion. Advanced cervical facet arthrosis most advanced at C2-C3 extending to C4-C5. Multilevel foraminal stenosis. 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 Signed: Pravin Newman Verified Date/Time: 04/03/2020 14:49:24 Reading Location: [facility] Reading Room [address] [place] [address] UE EXAM 2017-09-13 Surgical Pathology 2 Report Case: [id number] 09:01:00 Authorizing Provider: Junior Lesile Collected: 09/25/2017 1616 MD Vikas Ordering Location: [facility] Received: 09/26/2017 0802 SERVICES Pathologist: Jason You MD Specimen: Femoral Head, Right Hip BONE, RIGHT HIP, ARTHROPLASTY: -OSTEOARTHRITIS Signing Pathologist Direct Phone Line: [phone] lly signed by Jason You MD on 10/03/2017 at 9:01 [id number] hip arthritisRight femoral headThe specimen is received in a fluidless container labeled with patient information and labeled "right femoral head" and consists of a lynch-red spherical femoral head measuring 3.5 x 3 x 3 cm with a sharply amputated base. The articular surface has distinct osteophyte formation and a small area of eburnation.Section code: A1 and A2, bone submitted for decalcification; A3, soft tissue and bone submitted for decal. CG/pl The sections show reduplication of the tidemark with eburnation and osteophyte formation.The synovial tissue reveals subsynovial edema with chronic inflammation. POCT-GLUCOSE METER 2017-09-27 08:07:00 Test Item Value Reference Range Interpretation [facility] POC-GLUCOSE METER (BEAKER) (test 302 mg/dL 70-110 H TESTED AT [facility] [address] [facility] code = 1538) [facility] 7703 0 BASIC METABOLIC [id number] 07:09:00 Test Item Value Reference Range Interpretation [...] APPLICABLE FOR DIALYSIS PATIEN TS. HEMOGLOBIN AND [id number] 06:38:00 Test Item Value Reference Range Interpretation Comments HEMOGLOBIN (BEAKER) (test code = 9.4 GM/DL 11.2-15.7 L 410) HEMATOCRIT (BEAKER) (test code = 29.5 % 34.1-44.9 L 411) POCT-GLUCOSE [id number] 21:34:00 Test Item Value Reference Range Interpretation Comments POC-GLUCOSE METER 298 mg/dL 70-110 H TESTED AT [facility] 6720 (BEAKER) (test code = JOHANA Cuello [facility] 1538) [id number] BASIC METABOLIC [id number] 18:58:00 Test Item Value Reference Range Interpretation [...] NOT APPLICABLE FOR DIALYSIS PATIEN TS. POCT-GLUCOSE [id number] 17:06:00 Test Item Value Reference Range Interpretation Comments POC-GLUCOSE METER 228 mg/dL 70-110 H TESTED AT [facility] 67[address] (BEAKER) (test code = [place] 1538) [address] RAD, CHEST, 1 VIEW, NON [id number] 15:01:00Reason for exam:->feverShould this be performed at the bedside?->YesFINAL REPORT TECHNIQUE: Frontal chest radiograph dated 09/26/2017. CLINICAL HISTORY: Fever COMPARISON STUDY: None IMPRESSION:There is minimal atelectasis in the left lung base. Right lung is clear. No pleural effusion or pneumothorax. Cardiomediastinal silhouette is normal in size.No pulmonary edema. Degenerative changes are seen in the spine. Bones are osteopenic. No fracture. Signed: Tommy Albert MDReport Verified Date/Time: 09/26/2017 15:01:38 Reading Location: [facility] Radiology Reading Room [facility] METABOLIC [id number] 14:39:00 Test Item Value Reference Range Interpretation [...] S NOT APPLICABLE FOR DIALYSIS PATIEN TS. [id number] 13:26:00 Test Item Value Reference Range Interpretation Comments POTASSIUM (BEAKER) (test code = 5.4 meq/L 3.5-5.1 H 379) POCT-GLUCOSE [id number] 12:40:00 Test Item Value Reference Range Interpretation Comments POC-GLUCOSE METER 230 mg/dL 70-110 H TESTED AT [facility] 67[address] (BEAKER) (test code = [facility] [place] 1538) [address] POCT-GLUCOSE [id number] 07:49:00 Test Item Value Reference Range Interpretation Comments POC-GLUCOSE METER 166 mg/dL 70-110 H TESTED AT [facility] 6720 (BEAKER) (test code = [facility] [place] 1538) [address] BASIC METABOLIC [id number] 07:13:00 Test Item Value Reference Range Interpretation [...] APPLICABLE FOR DIALYSIS PATIEN TS. BASIC METABOLIC [id number] 05:22:00 Test Item Value Reference Range Interpretation Comments SODIUM (BEAKER) 137 meq/L 136-145 (test code = 381) POTASSIUM (BEAKER) 6.0 meq/L 3.5-5.1 HH (test code = 379) CHLORIDE (BEAKER) 108 meq/L 98-107 H (test code = 382) CO2 (BEAKER) (test 21 meq/L 22-29 L code = 355) BLOOD UREA NITROGEN 26 mg/dL 7-21 H (REGINEAKER) (test code = 354) CREATININE (BEAKER) 1.83 mg/dL 0.57-1.25 H (test code = 358) GLUCOSE RANDOM 172 mg/dL 70-105 H (REGINEAKER) (test code = 652) CALCIUM (BEAKER) 8.9 mg/dL 8.4-10.2 (test code = 697) EGFR (DEBORAH) (test 27 mL/min/1.73 ESTIMA EDWIN GFR IS code = 1092) sq m NOT ACCURATE CREATININE CLEARANCE IN PREDICTING GLOMERULAR FILTRATION RATE . ESTIMATED GFR I S NOT APPLICABLE FOR DIALYSIS PATIEN TS. HEMOGLOBIN AND [id number] 04:55:00 Test Item Value Reference Range Interpretation Comments HEMOGLOBIN (DEBORAH) (test code = 10.6 GM/DL 11.2-15.7 L 410) HEMATOCRIT (DEBORAH) (test code = 34.1 % 34.1-44.9 411) POCT-GLUCOSE [id number] 22:27:00 Test Item Value Reference Range Interpretation Comments POC-GLUCOSE METER 254 mg/dL 70-110 H TESTED AT [facility] 67[address] (DEBORAH) (test code = JOHANA Cuello [facility] 1538) [address] RAD, PELVIS, 1 OR 2 [id number] 19:48:00Reason for exam:->s/p THAShould this be performed at the bedside?->YesFINAL REPORT Post operative exam: Clinical history: Status post total hip replacementComparison: September 25, 2017 at 1623 Two image(s) was(were) submitted for interpretation. Report:Imaging was performed following surgery.. Laterality was documented on this exam with a lead marker. Atotal hip prosthesis is visualized overlying the right acetabulum and right proximal femur. There isno evidence of fracture or dislocation. This information was not discussed with the OR personnel at the time of dictation. Signed: Maddy Stewart Verified Date/Time: 09/25/2017 19:48:33 Reading Location: [address] Consult Reading Room 07:48 PMPOCT-GLUCOSE [id number] 19:19:00 Test Item Value Reference Range Interpretation Comments POC-GLUCOSE METER 173 mg/dL 70-110 H TESTED AT [facility] [address] ([facility]) (test code = JOHANA Cuello [place] 1538) [id number] RAD, PELVIS, 1 OR 2 [id number] 17:03:00Reason for exam:->hip osteoarthritisFINAL REPORT Technique: Single intraoperative image of the pelvis submitted. FINDINGS: Single limited view of the pelvis demonstrates left hip arthroplasty in progress. Correlationwith intraprocedural findings recommended. Signed: Mik Baron MDReport Verified Date/Time: 17:03:04 Reading Location: [facility] Reading Room [id number] 12:48:00 Test Item Value Reference Range Interpretation Comments SODIUM (BEAKER) (test code = 381) 138 meq/L 136-145 POTASSIUM (BEAKER) (test code = 4.7 meq/L 3.5-5.1 379) CHLORIDE (BEAKER) (test code = 382) 105 meq/L 98-107 CO2 (BEAKER) (test code = 355) 23 meq/L 22-29 BUN AND [id number] 12:48:00 Test Item Value Reference Range Interpretation Comments BLOOD UREA NITROGEN 19 mg/dL 7-21 (BEAKER) (test code = 354) CREATININE (BEAKER) 1.06 mg/dL 0.57-1.25 (test code = 358) EGFR (BEAKER) (test 51 mL/min/1.73 ESTIMA EDWIN GFR IS code = 1092) sq m NOT ACCURATE CREATININE CLEARANCE IN PREDICTING GLOMERULAR FILTRATION RATE . ESTIMATED GFR I S NOT APPLICABLE FOR DIALYSIS PATIEN TS. POCT-GLUCOSE [id number] 12:31:00 Test Item Value Reference Range Interpretation Comments POC-GLUCOSE METER 131 mg/dL 70-110 H TESTED AT [facility] 6720 (BEAKER) (test code = JOHANA Cuello [place] 1538) [id number] 11:03:00 Test Item Value Reference Range Interpretation Comments HEMOGLOBIN (BEAKER) (test code = 12.8 GM/DL 11.2-15.7 410) PLATELET [id number] 11:03:00 Test Item Value Reference Range Interpretation Comments PLATELET COUNT (BEAKER) (test 213 K/CU MM 150-450 code = 756)
--- NOTE | 2021-12-20 16:08 | RAD REPORT ---
EXAM DESCRIPTION: CT - Head Brain Wo Cont - 12/20/2021 3:59 pm CLINICAL HISTORY: syncope, dizziness, shortness of breath COMPARISON: <Comparisons> TECHNIQUE: Axial 5 mm thick images of the head were obtained without IV contrast. All CT scans are performed using dose optimization technique as appropriate and may include automated exposure control or mA/KV adjustment according to patient size. FINDINGS: No intracranial hemorrhage, mass, edema or shift of mid-line structures. No acute cortical based infarction. No cortical edema or sulcal effacement. Mild to moderate atrophy changes are prese nt with ventricles in proportion. Atrophy has shown a mild progression since 2017. Cerebral white mat ter chronic ischemic pattern is not substantially different. No abnormal extra-axial fluid collection s. Mastoid air cells and visualized portions of the paranasal sinuses are clear. No acute bony findings. IMPRESSION: Negative non-contrast CT head examination for acute finding. Patient's atrophy has show mild progression from 2017. Mild chronic ischemic changes are stable.
--- NOTE | 2021-12-20 16:45 | RAD REPORT ---
EXAM DESCRIPTION: US - Extrem Venous W Compress Wallace - 12/20/2021 4:35 pm CLINICAL HISTORY: swelling, sob COMPARISON: None. TECHNIQUE: Real-time sonographic evaluation of the bilateral lower extremity common femoral, superfi cial femoral, popliteal and posterior tibial veins was performed. FINDINGS: Normal compressibility, flow augmentation, phasic flow and spontaneous flow are identified in the left and right lower extremity common femoral, superficial femoral, popliteal and posterior t ibial veins. No intraluminal filling defects seen. IMPRESSION: No DVT in either lower extremity.
--- NOTE | 2021-12-20 17:19 | RAD REPORT ---
EXAM DESCRIPTION: RAD - Chest Single View - 12/20/2021 4:30 pm CLINICAL HISTORY: sob, syncope COMPARISON: Two view chest March 2020 TECHNIQUE: AP portable chest image was obtained 12/20/2021 4:30 pm . FINDINGS: Lungs are fibrotic but clear of an acute infiltrate or mass. No failure or volume overload . Interstitial pattern is not clearly different from comparison. Trachea is midline. Neurostimulator wires overlie the midthoracic spine similar to comparison. Heart and vasculature are normal. No measurable pleural effusion and no pneumothorax. No acute bone finding . Degenerative changes are present. Old healed rib fractures noted on the right. No acute aortic find ings suspected. IMPRESSION: No acute cardiopulmonary process. No significant change from comparison.
[2021-12-20 17:21] LABS: Absolute Lymphocytes (CBC) 1.3 K/uL (0.7-4.9); Hematocrit 34.3 % (36.0-45.0); Lymphocytes % 10.5 % (15.3-44.8); MCV 95.9 fL (80-100); MPV 9.8 fL (7.6-11.3); RBC Red Blood Cell Count 3.58 M/uL (3.86-4.86)
[2021-12-20 17:22] LABS: Protime INR 1.04
[2021-12-20 17:39] LABS: Albumin 3.2 g/dL (3.4-5.0); Bilirubin Direct 0.1 mg/dL (0-0.2); Bilirubin Total 0.5 mg/dL (0.2-1.0); Magnesium 2.3 mg/dL (1.8-2.4); Potassium 3.6 mmol/L (3.5-5.1); Protein, Total 6.4 g/dL (6.4-8.2); Troponin High Sensitivity 19.7 pg/mL (<58.9)
--- NOTE | 2021-12-20 20:27 | RAD REPORT ---
EXAM DESCRIPTION: CT - Chest For Pe Angio - 12/20/2021 8:13 pm CLINICAL HISTORY: sob, syncope COMPARISON: No comparisons TECHNIQUE: Dynamically enhanced axial 3 mm thick images of the chest were obtained during administra tion of <100> mL Isovue 370 IV contrast. Coronal and oblique reconstruction images were generated and reviewed. Exam utilizes a protocol for optimal evaluation of pulmonary arterial tree. Maximum intensity projections 3D imaging was utilized All CT scans are performed using dose optimization technique as appropriate and may include automated exposure control or mA/KV adjustment according to patient size. FINDINGS: Chest Wall: No suspicious thyroid nodules or pathologic lymphadenopathy. Lungs: No acute abnormality. Pleura: No significant effusions or pneumothorax. Mediastinum/staci: No pathologic lymphadenopathy. Moderately thickened esophagus. . Pulmonary arteries/Aorta: No filling defect identified. No aortic aneurysm. Heart: No significant pericardial effusion. Normal heart size. Upper abdomen: No acute abnormality.Surgical changes from gastric bypass Bones: No acute abnormality. Spinal stimulator. IMPRESSION: Negative for pulmonary embolism. Moderately thickened esophagus consistent with esophagi tis.
--- NOTE | 2021-12-20 20:59 | RAD REPORT ---
EXAM DESCRIPTION: RAD - Foot Left 3 View - 12/20/2021 8:37 pm CLINICAL HISTORY: foot pain, erythema COMPARISON: No comparisons FINDINGS/IMPRESSION: No acute fracture. No malalignment. Calcaneal spurring. No radiographic evidenc e of osteomyelitis.
--- NOTE | 2021-12-20 21:01 | EDPHYS ---
Physician Documentation [facility] Name: Maricruz Conrad Age: 80 yrs Sex: Female : 1940 Arrival Date: 12/20/2021 Time: 15:18 Bed 9 Private MD: Tiana Richardson ED Physician Av Perez HPI: 12/20 15:38 This 80 yrs old Female presents to ER via Ambulatory with complaints of Passed Out jmm Prior To Arrival. 15:38 The patient has experienced near-syncope. Onset: The symptoms/episode began/occurred jmm acutely, this morning. Duration: This was a single episode. Associated injury: The patient did not suffer any apparent associated injury. Associated signs and symptoms: Pertinent negatives:. This is a 80-year-old female with history of anxiety, COPD, diabetes mellitus, Parkinson's, hypertension the presents emerged department after syncopal episode which occurred this morning around 8 AM. states that the patient nearly collapsed and he had to catch her. Denies hitting her head. States the patient had difficulty speaking. took the patient's blood pressure soon after the episode which was 84 systolic. States that the patient does have difficulty maintaining her blood pressure. Also complaints of pain and redness to the left foot which began approximately 3 days ago.. Historical: - Allergies: 15:37 No Known Allergies; ld1 - PMHx: 15:37 Anxiety; COPD; Diabetes - IDDM; GERD; High Cholesterol; Hypertension; ld1 - PSHx: 15:38 Cholecystectomy; Stomach bypass; ld1 - Immunization history:: Adult Immunizations up to date, Client reports receiving the 2nd dose of the Covid vaccine. - Social history:: Smoking status: Patient denies any tobacco usage or history of. Patient/guardian denies using alcohol. ROS: 20:58 Constitutional: Negative for fever, chills, and weight loss, Cardiovascular: Negative jmm for chest pain, palpitations, and edema. 20:58 Respiratory: Positive for shortness of breath. 20:58 Neuro: Positive for syncope. 20:58 All other systems are negative. Exam: 20:58 Constitutional: This is a well developed, well nourished patient who is awake, alert, jmm and in no acute distress. Head/Face: atraumatic. Eyes: EOMI, no conjunctival erythema appreciated ENT: Moist Mucus Membranes Neck: Trachea midline, Supple Chest/axilla: Normal chest wall appearance and motion. Cardiovascular: Regular rate and rhythm. No edema appreciated Respiratory: Normal respirations, no respiratory distress appreciated Abdomen/GI: Non distended Back: Normal ROM 20:58 Skin: Erythema noted to the left foot. 20:58 Neuro: Orientation: is normal, Mentation: is normal, Memory: is normal. 20:58 Psych: Behavior/mood is pleasant, cooperative. Vital Signs: 15:34 BP 150 / 74; Pulse 87; Resp 18; Temp 98.7(O); Pulse Ox 97% on R/A; Weight 69.4 kg; ld1 Height 5 ft. 3 in. (160.02 cm); Pain 6/10; 21:14 BP 146 / 77; Pulse 69; Resp 18; Pulse Ox 99% on R/A; ld1 15:34 Body Mass Index 27.10 (69.40 kg, 160.02 cm) ld1 MDM: 15:38 Patient medically screened. [facility] 21:00 Data reviewed: vital signs, nurses notes. Counseling: I had a detailed discussion with [facility] the patient and/or guardian regarding: the historical points, exam findings, and any diagnostic results supporting the discharge/admit diagnosis, lab results, radiology results, the need for further work-up and treatment in the hospital. Refusal of service: The patient/guardian displays adequate decision making capability and despite a detailed discussion of alternatives, benefits, risks, and consequences refuses: Admission to the hospital for further work-up and treatment. 12/20 15:38 Order name: Basic Metabolic Panel; Complete Time: 17:[address] [facility] 12/20 15:38 Order name: CBC with Diff; Complete Time: 17:[address] [facility] 12/20 15:38 Order name: LFT's; Complete Time: 17:[address] [facility] 12/20 15:38 Order name: Magnesium; Complete Time: 17:[address] [facility] 12/20 15:38 Order name: NT PRO-BNP; Complete Time: 17:[address] [facility] 12/20 15:38 Order name: PT-INR; Complete Time: 17:[address] [facility] 12/20 15:38 Order name: Troponin HS; Complete Time: 17:[address] [facility] 12/20 15:38 Order name: XRAY Chest (1 view); Complete Time: 17:[address] [facility] 12/20 15:39 Order name: CT Head Brain wo Cont; Complete Time: 16:[address] [facility] 12/20 15:39 Order name: SARS-COV-2 RT PCR (Document "Date of Onset" if Symptomatic); Complete Time: [facility] 16:41 12/20 15:40 Order name: Influenza Screen (a \\T\\ B); Complete Time: 16:[address] [facility] 12/20 15:41 Order name: US Extremity Venous W Compression Wallace; Complete Time: 16:[address] [facility] 12/20 17:48 Order name: D-Dimer; Complete Time: 19:[address] [facility] 12/20 19:25 Order name: Foot Left 3 View XRAY; Complete Time: 21:[address] [facility] 12/20 15:38 Order name: EKG; Complete Time: 15:[address] [facility] 12/20 15:38 Order name: Cardiac monitoring; Complete Time: 17:[address] [facility] 12/20 15:38 Order name: EKG - Nurse/Tech; Complete Time: 17:[address] [facility] 12/20 15:38 Order name: IV Saline Lock; Complete Time: 17:[address] [facility] 12/20 15:38 Order name: Labs collected and sent; Complete Time: 17:[address] [facility] 12/20 15:38 Order name: O2 Per Protocol; Complete Time: 17:[address] [facility] 12/20 15:38 Order name: O2 Sat Monitoring; Complete Time: 17:[address] [facility] 12/20 17:24 Order name: Urine Dipstick-Ancillary (obtain specimen); Complete Time: 19:[address] [facility] 12/20 19:53 Order name: CT Chest For PE Angio; Complete Time: 20:[address] [facility] Administered Medications: No medications were administered Disposition Summary: 12/20/21 21:01 Discharge Ordered Location: Home [facility] Condition: Stable [facility] Diagnosis - Syncope [facility] - Cellulitis of the left foot [facility] Followup: [facility] - With: Tiana Richardson MD - When: 2 - 3 days - Reason: Recheck today's complaints, Continuance of care, Re-evaluation by your physician Discharge Instructions: - Discharge Summary Sheet [facility] - Cellulitis, Adult [facility] - Syncope [facility] Forms: - Medication Reconciliation Form [facility] - Thank You Letter [facility] - Antibiotic Education [facility] - Prescription Opioid Use [facility] Prescriptions: - Cephalexin 500 mg Oral Capsule - take 1 capsule by ORAL route every 6 hours for 10 days; 40 capsule; Refills: 0, alissa Product Selection Permitted Addendum: 12/23/2021 23:35 Co-signature as Attending Physician, Av Perez DO I was immediately available on-site m s3 in the Emergency Department for consultation in the care of the patient. Signatures: Dispatcher [employer] EDMS Robert Bailey PA PA jmm Sims, Marcus, DO DO ms3 Thea Zarco RN RN ld1 Corrections: (The following items were deleted from the chart) 12/20 15:39 15:37 PSHx: None; ld1 ld1 20:59 15:38 This is a 80-year-old female with history of anxiety, COPD, diabetes mellitus, jm Parkinson's, hypertension the presents emerged department after syncopal episode which occurred this morning around 8 AM. states that the patient nearly collapsed and he had to catch her. Denies hitting her head. States the patient had difficulty speaking. took the patient's blood pressure soon after the episode which was 84 systolic. States that the patient does have difficulty maintaining. alissa
--- NOTE | 2021-12-20 21:01 | ER ---
Nurse's Notes [facility] Name: Maricruz Conrad Age: 80 yrs Sex: Female : 1940 Arrival Date: 12/20/2021 Time: 15:18 Bed 9 Private MD: Tiana Richardson Diagnosis: Syncope;Cellulitis of the left foot Presentation: 12/20 15:34 Chief complaint: Patient states: Near syncopal episode this morning around 0800. ld1 Dizziness/SOB. Pt reporting left foot pain. Family reports Dr is concerned of blood clot in left leg. Coronavirus screen: At this time, the client does not indicate any symptoms associated with coronavirus-19. Ebola Screen: No symptoms or risks identified at this time. Initial Sepsis Screen: Does the patient meet any 2 criteria? No. Patient's initial sepsis screen is negative. Does the patient have a suspected source of infection? No. Patient's initial sepsis screen is negative. Risk Assessment: Do you want to hurt yourself or someone else? Patient reports no desire to harm self or others. Onset of symptoms was December 20, 2021. 15:34 Method Of Arrival: Ambulatory ld1 15:34 Acuity: EMILY 3 ld1 Triage Assessment: 15:37 General: Appears in no apparent distress. comfortable, Behavior is calm, cooperative, ld1 appropriate for age. Pain: Complains of pain in anterior aspect of left ankle and dorsum of left foot Pain does not radiate. Pain currently is 7 out of 10 on a pain scale. Quality of pain is described as throbbing, Pain began 1 day ago. EENT: No signs and/or symptoms were reported regarding the EENT system. Neuro: Level of Consciousness is awake, alert, obeys commands, Oriented to person, place, time, situation. Cardiovascular: Capillary refill < 3 seconds Patient's skin is warm and dry. Respiratory: Airway is patent Respiratory effort is even, unlabored. GI: Abdomen is round non-distended. : No signs and/or symptoms were reported regarding the genitourinary system. Derm: No deficits noted. No signs and/or symptoms reported regarding the dermatologic system. Musculoskeletal: No signs and/or symptoms reported regarding the musculoskeletal system. Historical: - Allergies: 15:37 No Known Allergies; ld1 - PMHx: 15:37 Anxiety; COPD; Diabetes - IDDM; GERD; High Cholesterol; Hypertension; ld1 - PSHx: 15:38 Cholecystectomy; Stomach bypass; ld1 - Immunization history:: Adult Immunizations up to date, Client reports receiving the 2nd dose of the Covid vaccine. - Social history:: Smoking status: Patient denies any tobacco usage or history of. Patient/guardian denies using alcohol. Screenin:39 Abuse screen: Denies threats or abuse. Denies injuries from another. Nutritional ld1 screening: No deficits noted. Tuberculosis screening: No symptoms or risk factors identified. Fall Risk None identified. Assessment: 15:39 Reassessment: See triage assessment. ld1 21:14 Reassessment:. ld1 Vital Signs: 15:34 BP 150 / 74; Pulse 87; Resp 18; Temp 98.7(O); Pulse Ox 97% on R/A; Weight 69.4 kg; ld1 Height 5 ft. 3 in. (160.02 cm); Pain 6/10; 21:14 BP 146 / 77; Pulse 69; Resp 18; Pulse Ox 99% on R/A; ld1 15:34 Body Mass Index 27.10 (69.40 kg, 160.02 cm) ld1 ED Course: 15:18 Patient arrived in ED. rg4 15:18 Tiana Richardson MD is Private Physician. rg4 15:21 Robert Bailey PA is PHCP. [facility] 15:21 Av Perez DO is Attending Physician. [facility] 15:37 Triage completed. ld1 15:37 Arm band placed on right wrist. ld1 15:39 Patient has correct armband on for positive identification. Placed in gown. Bed in low ld1 position. Call light in reach. Side rails up X2. solar sales estimator on. Pulse ox on. NIBP on. Door closed. Noise minimized. Warm blanket given. 15:39 No provider procedures requiring assistance completed. ld1 16:01 CT Head Brain wo Cont In Process Unspecified. EDMS 16:32 XRAY Chest (1 view) In Process Unspecified. EDMS 16:37 US Extremity Venous W Compression Wallace In Process Unspecified. EDMS 20:15 CT Chest For PE Angio In Process Unspecified. EDMS 20:39 Foot Left 3 View XRAY In Process Unspecified. EDMS 21:00 Tiana Richardson MD is Referral Physician. [facility] 21:13 Thea Zarco, RN is Primary Nurse. ld1 21:14 IV discontinued, intact, bleeding controlled, No redness/swelling at site. ld1 Administered Medications: No medications were administered Medication: 15:39 VIS not applicable for this client. ld1 Outcome: 21:01 Discharge ordered by . [facility] 21:14 Discharged to home ambulatory, with family. ld1 21:14 Condition: stable 21:14 Discharge instructions given to patient, Instructed on discharge instructions, follow up and referral plans. medication usage, Demonstrated understanding of instructions, follow-up care, medications, Prescriptions given X 1. 21:14 Patient left the ED. ld1 Signatures: Dispatcher [employer] EDMS Robert Bailey PA PA Sepideh Alberts rg4 Thea Zarco, RN RN ld1 Corrections: (The following items were deleted from the chart) 15:39 15:37 PSHx: None; ld1 ld1 15:40 15:34 Chief complaint: Patient states: Near syncopal episode this morning around 0800. ld1 Dizziness/SOB. Pt reporting left foot pain. ld1
[2021-12-20 23:39] VITALS: TEMP 98.7
[2021-12-20 23:41] VITALS: BP 146/77; O2SAT 99
--- NOTE | 2021-12-21 13:56 | EKG ---
Test Date: 2021-12-20 Test Time: 17:39:04 Comber Fixer: BETO MEASUREMENT RESULTS: Intervals: Rate: 58 MT: 168 QRSD: 76 QT: 454 QTc: 445 Lorenzo: P: 58 MT: 168 QRS: 26 T: 45 INTERPRETIVE STATEMENTS: Sinus bradycardia Septal infarct, age undetermined Abnormal ECG Compared to ECG 01/15/2019 17:46:11 Sinus tachycardia no longer present Myocardial infarct finding still present Electronically Signed On 12-21-21 13:55:17 CDT by Vel Quinones
== END 2021-12-20 21:14 | disposition home or self-care (01) ==
LOC: ER 15:14
DX: R55 Syncope and collapse (principal); L03.116 Cellulitis of left lower limb; Z20.822 Contact with and (suspected) exposure to COVID-19; I10 Essential (primary) hypertension
CPT/HCPCS: 93005; 85025; 80048; 36415; 83735; 85610; 85379; 80076; 84484; 83880; 87804 ×2; 70450; 71275; 71045; 73630; 93970; 99284; U0003; Q9967

== ENCOUNTER 2022-05-13 09:27 | Day surgery (SDC) | payer OTHER, BC ==
[2022-05-13] MEDS ORDERED: DIPHENHYDRAMINE 25 MG TAB/CAP ONE (09:56)
[2022-05-13] MEDS ORDERED: ACETAMINOPHEN 325 MG TABLET ONE (09:56)
[2022-05-13] MEDS ORDERED: INFLIXIMAB-ABDA 700 MG in NA CHLORIDE 0.9% 250 ML IV ONE (10:00)
[2022-05-13] MEDS ORDERED: NA CHLORIDE 0.9% 250 ML ONE (10:13)
[2022-05-13 11:21] VITALS: BMI 25.7
[2022-05-13 13:49] VITALS: BP 132/58; TEMP 97.6; O2SAT 96
== END 2022-05-13 13:10 | disposition home or self-care (01) ==
LOC: DS 09:27
PROVIDERS: ATTEND Internal Medicine Gastroenterology
DX: K50.10 Crohn's disease of large intestine without complications (principal)
CPT/HCPCS: 96365; 96366; Q5104; J7050 ×2

== ENCOUNTER 2022-07-11 07:50 | Day surgery (SDC) | payer OTHER, BC ==
[2022-07-11] MEDS ORDERED: DIPHENHYDRAMINE 25 MG TAB/CAP ONE (08:25)
[2022-07-11] MEDS ORDERED: ACETAMINOPHEN 500 MG TAB ONE (08:26)
[2022-07-11] MEDS ORDERED: NA CHLORIDE 0.9% 250 ML ONE (08:26)
[2022-07-11 08:56] VITALS: BMI 24.7
[2022-07-11] MEDS ORDERED: INFLIXIMAB-ABDA 700 MG in NA CHLORIDE 0.9% 250 ML IV ONE (09:00)
[2022-07-11 11:52] VITALS: BP 115/73; TEMP 97.3; O2SAT 96
== END 2022-07-11 11:24 | disposition home or self-care (01) ==
LOC: DS 07:50
PROVIDERS: ATTEND Internal Medicine Gastroenterology
DX: K50.10 Crohn's disease of large intestine without complications (principal)
CPT/HCPCS: 96365; 96366; Q5104; J7050 ×2

== ENCOUNTER 2022-09-12 09:29 | Day surgery (SDC) | payer OTHER, BC ==
[2022-09-12] MEDS ORDERED: DIPHENHYDRAMINE 25 MG TAB/CAP ONE (09:42)
[2022-09-12] MEDS ORDERED: ACETAMINOPHEN 500 MG TAB ONE (09:43)
[2022-09-12] MEDS ORDERED: INFLIXIMAB-ABDA 700 MG in NA CHLORIDE 0.9% 250 ML IV ONE (10:00)
[2022-09-12] MEDS ORDERED: NA CHLORIDE 0.9% 250 ML ONE (10:01)
[2022-09-12 10:37] VITALS: BMI 25.3
[2022-09-12 13:11] VITALS: BP 115/75; TEMP 97.9; O2SAT 98
== END 2022-09-12 12:39 | disposition home or self-care (01) ==
LOC: DS 09:29
PROVIDERS: ATTEND Internal Medicine Gastroenterology
DX: K50.10 Crohn's disease of large intestine without complications (principal)
CPT/HCPCS: 96365; 96366; Q5104; J7050 ×2

== ENCOUNTER 2022-10-13 19:06 | Inpatient (IN) | payer OTHER, BC ==
[~2022-10-13 19:06] MED LIST changes: +ALBUTEROL 2.5 MG/3 ML NEB SOL NEB PRN; -HEPA 1000U/500MLS 1,000 UNIT/500 ML BAG IV ONE
--- OUTSIDE RECORDS SUMMARY | 2022-10-13 19:29 | XMS REPORT | Continuity of Care Document ---
:1940 Author Organization [facility] t Address [address] [place] [address] [address] [place] [address] Care Team Providers Name Role Phone TIANA BASSETT Primary Care Physician Unavailable Michelle Og Attending Clinician Unavailable Tiana Bassett Attending Clinician Unavailable Steff Marie Attending Clinician Cameron Macias MD Attending Clinician Orlando Hernandez MD Attending Clinician José Miguel Olivera MD Attending Clinician David Yoder MD Attending Clinician DAVID YODER Attending Clinician Unavailable JOSÉ MIGUEL OLIVERA Attending Clinician Unavailable JOSÉ MIGUEL OLIVERA Attending Clinician Unavailable Naresh Lyn MD, Chilvana Attending Clinician MATT INFANTE Attending Clinician Unavailable Asuncion Walton MD Attending Clinician Doctor Unassigned, [place] Attending Clinician Unavailable Kayden Skaggs Attending Clinician Boone Whitney DO Attending Clinician Junior Leslie MD Attending Clinician BOONE WHITNEY Attending Clinician Unavailable WILLIAMSTYLER PETERSEN Attending Clinician Unavailable JUNIOR LESLIE Attending Clinician Unavailable HCRISTOPHASUNCION Admitting Clinician Unavailable JUNIOR LESLIE Admitting Clinician Unavailable Payers Payer Name Policy Type Policy Number Effective Date Expiration Date S bailey MEDICARE PART A [id number] 2007 AND B 00:00:00 Blue Cross Blue 6 [id number] 2015 [facility] Shield of [place] 00:00:00 - [facility] MEDICARE MB [id number] 2007 [facility] NOVITAS 00:00:00 [facility] Blue Cross Blue C1 [id number] 2015 [facility] Shield of [place] 00:00:00 - [facility] MEDICARE A B [id number] 2007 00:00:00 BCBS FED [id number] 2015 00:00:00 Problems Condition Condition Condition Status [...] right [facility]-14 [facility] [address] [place] [address] [id number] Crohn's Problem Common disease of [facility]normal Abnormal Problem Commo n mammogram mammogram Spir it of right - CHI breast [facility] Hypertrigl Hypertrigl Problem C ommon yceridemia yceridemia Sp mj - CHI [facility] 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 - [facility] without complicati [facility] Elevated Elevated Problem Commo n liver liver Spirit enzymes enzymes - [facility] level [facility] 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 [facility] [id number] Age-relate Problem Com mon d Spirit osteoporos - [facility] is without [facility] pathologic Medica l al Center fracture [id number] Primary Problem Commo n osteoarthr Spirit itis of - CHI right hip [facility] [id number] intermediate designer 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) Spirit use of - [facility]I insulin [facility] COPD - COPD Problem Common Chronic (chronic Spirit obstructiv obstructiv - [facility] e e pulmonary pulmonary [facility] disease disease) [facility] Hyperlipid Hyperlipid Problem C ommon emia emia Spirit - CHI [facility] Allergic Allergic Problem Commo n rhinitis rhinitis, Spiri t unspecifie - CHI d [facility] Obstructiv Obstructiv Problem C ommon e sleep e sleep Spirit apnea apnea - [facility] [id number] Acute Problem Common atopic Spirit conjunctiv - CHI itis, [facility] [id number] Dry eyes, Problem Com mon bilateral Spirit - CHI [facility] [id number] Hypoglycem Problem Co mmon ia Spirit associated - [facility]I with [facility] [id number] Type 2 Problem Common diabetes Spirit mellitus - CHI with [facility] [id number] Unsteady Problem Comm on gait Spirit - CHI [facility] [id number] Screening Problem Com mon for Spirit cardiovasc - CHI ular [facility] [id number] Tinea Problem Common unguium Spirit - CHI [facility] [id number] Tinea Problem Common pedis Spirit - CH[facility] [id number] Tinea Problem Common manuum Spirit - CHI [facility] [id number] Dementia Problem Commo n without Spirit behavioral - CHI disturbanc [facility] unspecifie Medica l d dementia Center type [id number] Preoperati Problem C ommon 15981 ve Spirit examinatio - CHI n [facility] Urge Urge Problem Common incontinen incontinen Sp mj ce of ce of - CHI urine urine [facility] [id number] Aspiration Problem Com mon pneumonia Spirit of right - CHI lower lobe St due to [facility] gastric Medical secretions Center [id number] DDD Problem Common (degenerat Spirit arturo disc - CHI disease), [facility] [id number] Other Problem Common specified Spirit bacterial - CHI agents as St the cause [facility] of Medical diseases Center classified elsewhere Mixed Mixed Problem Common incontinen stress and Sp mj ce urge - CHI urinary [facility] incontinen [facility] Medical Liberal [id number] History of Problem Co mmon right hip Spirit replacemen - CHI t [facility] [id number] Scoliosis Problem Com mon of Spirit thoracolum - CHI bar spine, St unspecifie [facility] Medical scoliosis Center type Impairment Balance Problem Comm on of balance problem Spiri t - [facility] [id number] Other Problem Common chronic Spirit pain - CHI [facility] [id number] Bilateral Problem Com mon edema of Spirit lower - CHI extremity [facility] [id number] History of Problem Co mmon removal of Spirit laparoscop - CHI ic gastric St banding [facility] [id number] Crohn's Problem Common disease Spirit with - [facility] gastrointe stinal tract location Essential Essential Problem Com mon hypertensi (primary) Spi rit on hypertensi - CHI on [facility] 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 - CH I associated with St with type diabetic [facility] 2 diabetes neuropathy Ny dical mellitus Liberal [id number] Recurrent Problem Com mon falls Spirit - CHI [facility] Diabetic Diabetic Problem Commo n neuropathy neuropathy Sp mj - CHI [facility] Insomnia Insomnia Problem Commo n Spirit - [facility] Gastroesop GERD Problem Commo n hageal (gastroeso Spirit reflux phageal - CHI disease reflux St disease) [facility] Anxiety Anxiety Problem Active 2022-09-26 Me abbie (finding) (finding) 10:24:15 l Active [place] Problem 09/26/2022 [facility] Crohn's Crohn's Problem Active 2022-09-26 Me moria disease of disease of 10:24:15 l small small [place] intestine intestine (disorder) (disorder) Active Problem 09/26/2022 [facility] Depressive Depressiv Problem Active 2022-09-26 Memoria disorder e disorder 10:24:15 l (disorder) (disorder) He rmann Active Problem 09/26/2022 [facility] Diabetes Diabetes Problem Active 2022-09-26 Memoria mellitus mellitus 10:24:15 l (disorder) (disorder) He rmann Active Problem 09/26/2022 [facility] 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 Robbie n of of menopause menopause Active Problem 09/26/2022 [facility] Hypertensi Hypertens Problem Active 2022-09-26 Memoria ve arturo 10:24:15 l disorder, disorder, Herm ford systemic systemic arterial arterial (disorder) (disorder) Active Problem 09/26/2022 [facility] Osteoporos Osteoporo Problem Active 2022-09-26 Memoria is sis 10:24:15 l (disorder) (disorder) He rmann Active Problem 09/26/2022 [facility] Parkinson' Problem Active 2022-09-26 M emoria s disease Parkinson' 10:24:15 l (disorder) s disease Her heredia (disorder) Active Problem 09/26/2022 [facility] Recurrent Problem Active 2022-09-26 Me moria urinary Recurrent 10:24:15 l tract urinary [place] infection tract (disorder) infection (disorder) Active Problem 09/26/2022 [facility] Urinary Urinary Problem Active 2022-09-26 Me moria incontinen incontinen 10:24:15 l ce ce [place] (finding) (finding) Active Problem 09/26/2022 [facility] 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 10:24:15 l (disorder) (disorder) He rmann Active Problem 09/26/2022 [facility] Constipati Constipat Problem Active 2022-09-26 Memoria on ion 10:24:15 l (disorder) (disorder) He rmann Active Problem 09/26/2022 [facility] No known No known Disease Unive rs active active ity of problems problems [facility] Allergies, Adverse Reactions, Alerts Allergy Allergy Status Severity Reaction(s) Onset Inactive Treating Comm ents Source Name Type Date Date Clinician NO KNOWN Allergy Active [facility] Family History Family Member Diagnosis Comments Start Date Stop Date Source Natural mother No Known Problems Met [facility] Natural father Heart attack [facility] Social History Social Habit Start Date Stop Date Quantity Comments Source History of Tobacco [facility] - Use [facility] Gender identity [facility] Sexual orientation [facility] Hospital History [facility] Gnosticism Alcohol Std Drinks Hospit al History [facility] Gnosticism Alcohol Binge Hospital Exposure to 2022-07-13 2022-07-23 Not sure [facility] SARS-CoV-2 (event) 00:00:00 12:38:00 History of Social 2022-07-15 2022-07-[address] function 00:00:00 00:00:00 Hospital Tobacco use and 2021-12-18 2021-12-18 Smokeless tobacco [facility] exposure 00:00:00 00:00:00 non-user History SDOH 2019-09-14 2019-09-14 4 Gnosticism Alcohol Frequency 00:00:00 00:00:00 Hospita l Alcohol Comment 2019-03-17 2019-03-17 occaisional Methodis t 00:00:00 00:00:00 Hospital Alcohol intake 2017-09-26 2017-09-26 Current [facility] es 00:00:00 00:00:00 non-drinker of Medical Ce nter alcohol (finding) Cigarettes smoked 2017-09-10 2017-09-[address] [facility] current (pack per 00:00:00 00:00:00 Medical Center day) - Reported Cigarette 2017-09-10 2017-09-[address] [facility] pack-years 00:00:00 00:00:00 Medical Center Sex Assigned At 1940 [address] [facility] 00:00:00 00:00:00 Medical Center Smoking Status Start Date Stop Date Source Tobacco smoking status [facility] Former Smoker 2021-12-28 00:00:00 2021-12-28 00:00:00 Common S pirit - CHI [facility] Ce nter Never smoked tobacco [facility] Medications Ordered Filled Start Stop Current Ordering Indication Dosage Frequency Signature Comments Components Source Medication Medication Date Date Medication? Clinician (SIG) Name Name Joe Yes See Memoria Vaginal 6-12 Instructio l Cream 0.1 17:40: ns, apply Her heredia mg/g 00 pea size amount to urethra and vagina nightly for 2 weeks and then 3xweek. May dispose of applicator ., # 43 gm, 3 Refill(s), Pharmacy: [facility] #[id number], 160.02, cm, 09/23/22 12:31:00 CDT, Height, 72.727, kg, 09/23/22.. . Myrbetriq Yes 50 mg = 1 Mem oria 50 mg oral 4-24 tab, PO, l tablet, 16:02: Daily, # Robbie n extended 00 30 tab, 3 release Refill(s), Pharmacy: [facility] #[id number], 160.02, cm, 08/05/22 11:00:00 CDT, Height, 72.727, kg, 08/05/22 11:00:00 CDT, Weight metoclopram Yes metoclopra [facility] radha 4-11 mide 10 mg Health (Reglan) 10 13:43: tablet MG tablet 04 TAKE BY MOUTH DIRECTED PER YOUR COLONOSCOP Y PREP PACKET metoclopram Yes metoclopra UT radha 4-11 mide 10 mg Health (Reglan) 10 13:43: tablet MG tablet 04 TAKE BY MOUTH DIRECTED PER YOUR COLONOSCOP Y PREP PACKET amLODIPine- Yes amlodipine UT benazepril 4-11 10 Health (Lotrel) 13:43: mg-benazep 10-40 MG 03 ril 40 mg capsule capsule TAKE 1 CAPSULE BY MOUTH EVERY DAY amLODIPine- 2022-0 Yes amlodipine UT benazepril -11 10 Health (Lotrel) 13:43: mg-benazep 10-40 MG 03 ril 40 mg capsule capsule TAKE 1 CAPSULE BY MOUTH EVERY DAY Melatonin-P Yes See UT yridoxine 4-11 administra Heal ER 13:41: tion (Melatonin 51 instructio Advanced ns. Sleep) 10-10 MG tablet controlled- release cholecalcif 0 Yes 1{tbl} QD Take 1 UT cristi (D3-5) 4-11 tablet by [facility] 5,000 Units 13:41: mouth 1 tablet 51 (one) time each day. hyoscyamine Yes hyoscyamin UT (Anaspaz) 07-23 e 0.125 mg [facility] 0.125 MG 13:41: disintegra disintegrat 51 ting ing tablet tablet DISSOLVE 1 TO 2 TABLETS ON THE TONGUE EVERY 4 TO 6 HOURS NEEDED Multiple 0 Yes 1{capsu QD Take 1 UT Vitamin -11 le} capsule by [facility] (multivitam 13:41: mouth 1 in) capsule 51 (one) time each day. mupirocin Yes mupirocin UT (Bactroban) 07-23 2 % Health 2 % 13:41: topical ointment 51 ointment APPLY TOPICALLY TO THE AFFECTED AREA EVERY DAY metroNIDAZO 0 Yes metronidaz UT LE 07-23 ole 0.75 % Health (Metrolotio 13:41: lotion n) 0.75 % 51 lotion lotion Diclofenac Yes diclofenac U T Sodium 07-23 1 % Health (Voltaren) 13:41: topical 1 % 51 gel APPLY external 2 GRAMS TO gel THE AFFECTED AREA THREE TIMES DAILY ciclopirox 0 Yes ciclopirox U T (Penlac) 8 11 8 % Health % solution 13:41: topical 51 solution insulin Yes Levemir UT detemir 07-23 FlexTouch [facility] (Levemir 13:41: U-100 FlexTouch) 51 Insulin 100 UNIT/ML 100 injection unit/mL (3 mL) subcutaneo us pen Melatonin-P Yes See UT yridoxine 07-23 administra [facility] ER 13:41: tion (Melatonin 51 instructio Advanced ns. Sleep) 10-10 MG tablet controlled- release cholecalcif 0 Yes 1{tbl} QD Take 1 UT cristi (D3-5) 4-11 tablet by [facility] 5,000 Units 13:41: mouth 1 tablet 51 (one) time each day. hyoscyamine Yes hyoscyamin UT (Anaspaz) 07-23 e 0.125 mg Heal th 0.125 MG 13:41: disintegra disintegrat 51 ting ing tablet tablet DISSOLVE 1 TO 2 TABLETS ON THE TONGUE EVERY 4 TO 6 HOURS NEEDED Multiple Yes 1{capsu QD Take 1 UT Vitamin 07-23 le} capsule by Health (multivitam 13:41: mouth 1 in) capsule 51 (one) time each day. mupirocin Yes mupirocin UT (Bactroban) 07-23 2 % Health 2 % 13:41: topical ointment 51 ointment APPLY TOPICALLY TO THE AFFECTED AREA EVERY DAY metroNIDAZO Yes metronidaz UT LE 07-23 ole 0.75 % Health (Metrolotio 13:41: lotion n) 0.75 % 51 lotion lotion Diclofenac Yes diclofenac U T Sodium 07-23 1 % Health (Voltaren) 13:41: topical 1 % 51 gel APPLY external 2 GRAMS TO gel THE AFFECTED AREA THREE TIMES DAILY ciclopirox Yes ciclopirox U T (Penlac) 8 11 8 % Health % solution 13:41: topical 51 solution insulin Yes Levemir UT detemir 07-23 FlexTouch Health (Levemir 13:41: U-100 FlexTouch) 51 Insulin 100 UNIT/ML 100 injection unit/mL (3 mL) subcutaneo us pen DULoxetine Yes duloxetine U T (Cymbalta) 07-23 60 mg Health [address] 13:41: capsule,de capsule 50 layed release TAKE 1 CAPSULE BY MOUTH EVERY DAY terbinafine Yes terbinafin UT (LamISIL) 07-23 e HCl 250 Healt h 250 MG 13:41: mg tablet tablet 50 methotrexat Yes methotrexa UT e 2.5 MG 07-23 te sodium Health tablet 13:41: 2.5 mg 50 tablet TAKE 5 TABLETS BY MOUTH EVERY WEEK hydroCHLORO Yes hydrochlor UT thiazide 07-23 othiazide Health (HYDRODiuri 13:41: 12.5 mg l) 12.5 MG 50 tablet tablet ibandronate Yes ibandronat UT (Boniva) 4-11 e 150 mg Health 150 MG 13:41: tablet tablet 50 TAKE 1 TABLET BY MOUTH 1 TIME A MONTH omega-3 Yes 1000mg QD Take 1,000 UT 1000 MG 4-11 mg by Health capsule 13:41: mouth 1 50 (one) time each day. donepezil Yes donepezil UT (Aricept) 4-11 10 mg Health 10 MG 13:41: tablet tablet 50 TAKE 1 TABLET BY MOUTH TWICE DAILY memantine Yes memantine UT (Namenda) 4-11 10 mg Health 10 MG 13:41: tablet tablet 50 TAKE 1 TABLET BY MOUTH TWICE DAILY estradiol Yes estradiol UT (Estrace) 11 0.01% (0.1 Heal th 0.1 MG/GM 13:41: mg/gram) vaginal 50 vaginal cream cream APPLY PEA SIZE AMOUNT TO URETHRA AND VAGINA NIGHTLY FOR 2 WEEKS AND THEN THREE DAYS A WEEK. AUGUST DISPOSE OF APPLICATOR DULoxetine Yes duloxetine U T (Cymbalta) 4-11 60 mg Health [address] 13:41: capsule,de capsule 50 layed release TAKE 1 CAPSULE BY MOUTH EVERY DAY terbinafine Yes terbinafin UT (LamISIL) 4-11 e HCl 250 Healt h 250 MG 13:41: mg tablet tablet 50 methotrexat Yes methotrexa UT e 2.5 MG 4-11 te sodium Health tablet 13:41: 2.5 mg 50 tablet TAKE 5 TABLETS BY MOUTH EVERY WEEK hydroCHLORO Yes hydrochlor UT thiazide 4-11 othiazide Health (HYDRODiuri 13:41: 12.5 mg l) 12.5 MG 50 tablet tablet ibandronate Yes ibandronat UT (Boniva) 4-11 e 150 mg Health 150 MG 13:41: tablet tablet 50 TAKE 1 TABLET BY MOUTH 1 TIME A MONTH omega-3 Yes 1000mg QD Take 1,000 UT 1000 MG 4-11 mg by Health capsule 13:41: mouth 1 50 (one) time each day. donepezil Yes donepezil UT (Aricept) 4-11 10 mg Health 10 MG 13:41: tablet tablet 50 TAKE 1 TABLET BY MOUTH TWICE DAILY memantine Yes memantine UT (Namenda) 4-11 10 mg Health 10 MG 13:41: tablet tablet 50 TAKE 1 TABLET BY MOUTH TWICE DAILY estradiol Yes estradiol UT (Estrace) 4-11 0.01% (0.1 Heal th 0.1 MG/GM 13:41: mg/gram) vaginal 50 vaginal cream cream APPLY PEA SIZE AMOUNT TO URETHRA AND VAGINA NIGHTLY FOR 2 WEEKS AND THEN THREE DAYS A WEEK. MAY DISPOSE OF APPLICATOR oxyCODONE-a Yes oxycodone- UT cetaminophe 4-11 acetaminop He alth n 13:41: hen 10 (Percocet) 49 mg-325 mg 10-325 MG tablet tablet TAKE 1 TABLET BY MOUTH EVERY 12 HOURS NEEDED magnesium 2022-0 Yes 400mg QD Take 400 UT oxide 4-11 mg by Health (Mag-Ox) 13:41: mouth 1 400 MG 49 (one) time tablet each day. oxyCODONE-a Yes oxycodone- UT cetaminophe 4-11 acetaminop He alth n 13:41: hen 10 (Percocet) 49 mg-325 mg 10-325 MG tablet tablet TAKE 1 TABLET BY MOUTH EVERY 12 HOURS NEEDED magnesium 2022-0 Yes 400mg QD Take 400 UT oxide 4-11 mg by Health (Mag-Ox) 13:41: mouth 1 400 MG 49 (one) time tablet each day. cephalexin 2022- No [id number] 500mg Q12H Take 1 UT (Keflex) 07-23 capsule Health 500 MG 00:00: 04:59 (500 mg capsule 00 :00 total) by mouth every 12 (twelve) hours for 5 days. cephalexin 2022- No [id number] 500mg Q12H Take 1 UT (Keflex) 407-29 capsule Health 500 MG 00:00: 04:59 (500 mg capsule 00 :00 total) by mouth every 12 (twelve) hours for 5 days. gabapentin 0 Yes 1200mg Q.5D Take 1,200 UT (Neurontin) 4-05 mg by Health 600 MG 00:00: mouth in tablet 00 the morning and 1,200 mg before bedtime. gabapentin Yes 1200mg Q.5D Take 1,200 UT (Neurontin) 4-05 mg by Health 600 MG 00:00: mouth in tablet 00 the morning and 1,200 mg before bedtime. Estrace 2021-04 Yes See Memoria Vaginal 2-12 Instructio l Cream 0.1 23:39: ns, apply Her heredia mg/g 00 pea size amount to urethra and vagina nightly for 2 weeks and then 3xweek. May dispose of applicator ., # 43 gm, 3 Refill(s), Pharmacy: [facility] #[id number] DULoxetine 2021-04 Yes 0 Memoria 30 mg oral 2-12 Refill(s) l delayed 22:05: release 00 capsule midodrine 2021-04 Yes 0 Memoria 10 mg oral 2-12 Refill(s) l tablet 22:05: fluticasone 2021-04 Yes 0 Memori a nasal 0.05 2-12 Refill(s) l mg/inh 22:05: montelukast 2021-04 Yes 0 Memori a 10 mg oral 2-12 Refill(s) l tablet 22:05: gabapentin 2021-04 Yes 0 Memoria 300 mg oral 2-12 Refill(s) l capsule 22:04: clonazePAM 2021-04 Yes 0 Memoria 1 mg oral 2-12 Refill(s) l tablet 22:04: lisinopril 2021-04 Yes 0 Memoria 40 mg oral 2-12 Refill(s) l tablet 22:04: omeprazole 2021-04 Yes 0 Memoria 40 mg oral 2-12 Refill(s) l delayed 22:04: release 00 capsule acetaminoph 2021-04 Yes 0 Memori a en-hydrocod 2-12 Refill(s) l one 325 22:04: [place] mg-10 mg 00 oral tablet donepezil 2021-04 Yes 0 Memoria 10 mg oral 2-12 Refill(s) l tablet 22:04: 00 ibandronate 2021-04 Yes 0 Memori a 150 mg oral 2-12 Refill(s) l tablet 22:04: [place] 00 simvastatin 2021-04 Yes 0 Memori a 20 mg oral 2-12 Refill(s) l tablet 22:04: [place] 00 memantine 2021-04 Yes 0 Memoria 10 mg oral 2-12 Refill(s) l tablet 22:04: [place] 00 Toujeo Max 2021-04 Yes 0 Memoria SoloStar 2-12 Refill(s) l 300 22:04: [place] units/mL 00 subcutaneou s solution diclofenac 2021-04 Yes 0 Memoria topical 1% 2-12 Refill(s) l gel 22:04: [place] 00 busPIRone 5 2021-04 Yes 0 Memori a mg oral 2-12 Refill(s) l tablet 22:03: [place] 00 trospium 2021-04 Yes 0 Memoria chloride 20 2-12 Refill(s) l mg oral 22:03: [place] tablet 00 Metoprolol 2021-04 Yes 0 Memoria Succinate 2-12 Refill(s) l ER 50 mg 22:03: [place] oral 00 tablet, extended release carbidopa-l 2021-04 Yes 0 Memori a evodopa 25 2-12 Refill(s) l mg-100 mg 22:03: [place] oral tablet 00 metoclopram 2021-04 Yes 0 Memori a radha 10 mg 2-12 Refill(s) l oral tablet 22:03: Robbie n 00 acetaminoph 2021-04 Yes 0 Memori a en-oxycodon 2-12 Refill(s) l e 325 mg-10 22:03: Robbie n mg oral 00 tablet Levemir 2021-04 Yes 20 unit, Memori a FlexTouch 2-12 SUB-Q, l 100 22:02: Bedtime, # [place] units/mL 00 3 mL, 3 subcutaneou Refill(s) s solution carbidopa-l 2021-04 Yes 0 Memori a evodopa 25 2-12 Refill(s) l mg-100 mg 18:51: [place] oral tablet 00 metoclopram 2021-04 Yes 0 Memori a radha 10 mg 2-12 Refill(s) l oral tablet 18:51: Robbie n 00 busPIRone 5 2021-04 Yes 0 Memori a mg oral 2-12 Refill(s) l tablet 18:50: [place] 00 trospium 2021-04 Yes 0 Memoria chloride 20 2-12 Refill(s) l mg oral 18:50: [place] tablet 00 Metoprolol 2021-04 Yes 0 Memoria Succinate 2-12 Refill(s) l ER 50 mg 18:50: [place] oral 00 tablet, extended release gabapentin 2021-04 Yes 0 Memoria 600 mg oral 2-12 Refill(s) l tablet 18:50: [place] 00 carbidopa-l 2021-04 Yes 0 Memori a evodopa 25 2-12 Refill(s) l mg-100 mg 18:50: [place] oral tablet 00 amLODIPine- 2021-04 Yes 0 Memori a benazepril 2-12 Refill(s) l 10 mg-40 mg 18:50: Robbie n oral 00 capsule Levemir 2021-04 Yes 20 unit, Memori a FlexTouch 2-12 SUB-Q, l 100 18:49: Bedtime, # [place] units/mL 00 3 mL, 3 subcutaneou Refill(s) s solution Levemir Levemir 2021-04 No QD Levemir FlexTouch FlexTouch 2-07 FlexTouch 00:00: 00 Levemir Levemir 2021-04 No QD Leve[place] FlexTouch FlexTouch 2-07 FlexTouch 00:00: 00 Levemir Levemir 2021-04 No QD [place] FlexTouch FlexTouch 2-07 FlexTouch 00:00: 00 Levemir Levemir 2021-04 No QD [place] FlexTouch FlexTouch 2-07 FlexTouch 00:00: 00 Levemir Levemir 2021-04 No QD [place] FlexTouch FlexTouch 2-07 FlexTouch 00:00: 00 Levemir Levemir 2021-04 No QD [place] FlexTouch FlexTouch 2-07 FlexTouch 00:00: 00 Levemir Levemir 2021-04 No QD [place] FlexTouch FlexTouch 2-07 FlexTouch 00:00: 00 Levemir Levemir 2021-04- No QD [place] FlexTouch FlexTouch 2-07 06-05 FlexTouch 00:00: 00:00 00 :00 Midodrine Midodrine 2021- No TID Midodrine HCl 10 MG HCl 10 MG 0-10 HCl 10 MG 00:00: 00 Lisinopril Lisinopril 2021-1 No 1{table QD Lisinopril 40 MG 40 MG 0-10 t} 40 MG 00:00: 00 Midodrine Midodrine 2021- No TID Midodrine HCl 10 MG HCl 10 MG 0-10 HCl 10 MG 00:00: 00 Lisinopril Lisinopril 2021-1 No 1{table QD Lisinopril 40 MG 40 MG 0-10 t} 40 MG 00:00: 00 Midodrine Midodrine 2021- No TID Midodrine HCl 10 MG HCl 10 MG 0-10 HCl 10 MG 00:00: 00 Lisinopril Lisinopril 2021-1 No 1{table QD Lisinopril 40 MG 40 MG 0-10 t} 40 MG 00:00: 00 Lisinopril Lisinopril 2021-1 No 1{table QD Lisinopril 40 MG 40 MG 0-10 t} 40 MG 00:00: 00 Midodrine Midodrine 2021- No TID Midodrine HCl 10 MG HCl 10 MG 0-10 HCl 10 MG 00:00: 00 Lisinopril Lisinopril 2021-1 No 1{table QD Lisinopril 40 MG 40 MG 0-10 t} 40 MG 00:00: 00 Midodrine Midodrine 2021- No TID Midodrine HCl 10 MG HCl 10 MG 0-10 HCl 10 MG 00:00: 00 Lisinopril Lisinopril 2021-1 No 1{table QD Lisinopril 40 MG 40 MG 0-10 t} 40 MG 00:00: 00 Midodrine Midodrine 2021- No TID Midodrine HCl 10 MG HCl 10 MG 0-10 HCl 10 MG 00:00: 00 Lisinopril Lisinopril 2021-1 No 1{table QD Lisinopril 40 MG 40 MG 0-10 t} 40 MG 00:00: 00 Midodrine Midodrine 2021- No TID Midodrine HCl 10 MG HCl 10 MG 0-10 HCl 10 MG 00:00: 00 Lisinopril Lisinopril 2022-1 No 1{table QD Lisinopril 40 MG 40 MG 0-10 t} 40 MG 00:00: 00 Midodrine Midodrine 2021-04 No TID Midodrine HCl 10 MG HCl 10 MG 0-10 HCl 10 MG 00:00: 00 Midodrine Midodrine 2021-04 No TID Midodrine HCl 10 MG HCl 10 MG 0-10 HCl 10 MG 00:00: 00 Lisinopril Lisinopril 2021-04 No 1{table QD Lisinopril 40 MG 40 MG 0-10 t} 40 MG 00:00: 00 Lisinopril Lisinopril 2021-04 No 1{table QD Lisinopril 40 MG 40 MG 0-10 t} 40 MG 00:00: 00 Midodrine Midodrine 2021-04 No TID Midodrine HCl 10 MG HCl 10 MG 0-10 HCl 10 MG 00:00: 00 Lisinopril Lisinopril 2021-04 No 1{table QD Lisinopril 40 MG 40 MG 0-10 t} 40 MG 00:00: 00 Midodrine Midodrine 2021-04 No TID Midodrine HCl 10 MG HCl 10 MG 0-10 HCl 10 MG 00:00: 00 Lisinopril Lisinopril 2021-04 No 1{table QD Lisinopril 40 MG 40 MG 0-10 t} 40 MG 00:00: 00 Midodrine Midodrine 2021-04 No TID Midodrine HCl 10 MG HCl 10 MG 0-10 HCl 10 MG 00:00: 00 midodrine 2021-04 Yes midodrine [facility] (Proamatine 0-10 10 mg Health ) 10 MG 00:00: tablet tablet 00 midodrine 2021-04 Yes midodrine [facility] (Proamatine 0-10 10 mg Health ) 10 MG 00:00: tablet tablet 00 Metoprolol Metoprolol No BID Metoprolol Tartrate 25 Tartrate 25 9-28 Tartrate MG MG 00:00: 25 MG 00 Metoprolol Metoprolol No BID Metoprolol Tartrate 25 Tartrate 25 9-28 Tartrate MG MG 00:00: 25 MG 00 Metoprolol Metoprolol No BID Metoprolol Tartrate 25 Tartrate 25 9-28 Tartrate MG MG 00:00: 25 MG 00 Metoprolol Metoprolol 2021-0 No BID Metoprolol Tartrate 25 Tartrate 25 9-28 Tartrate MG MG 00:00: 25 MG 00 Metoprolol Metoprolol 2021-0 No BID Metoprolol Tartrate 25 Tartrate 25 9-28 Tartrate MG MG 00:00: 25 MG 00 Metoprolol Metoprolol 2021-0 No BID Metoprolol Tartrate 25 Tartrate 25 9-28 Tartrate MG MG 00:00: 25 MG 00 Metoprolol Metoprolol 2021-0 No BID Metoprolol Tartrate 25 Tartrate 25 9-28 Tartrate MG MG 00:00: 25 MG 00 Metoprolol Metoprolol 2021-0 No BID Metoprolol Tartrate 25 Tartrate 25 9-28 Tartrate MG MG 00:00: 25 MG 00 Metoprolol Metoprolol 2021-0 No BID Metoprolol Tartrate 25 Tartrate 25 9-28 Tartrate MG MG 00:00: 25 MG 00 Metoprolol Metoprolol 2021-0 No BID Metoprolol Tartrate 25 Tartrate 25 9-28 Tartrate MG MG 00:00: 25 MG 00 Metoprolol Metoprolol 2021-0 No BID Metoprolol Tartrate 25 Tartrate 25 9-28 Tartrate MG MG 00:00: 25 MG 00 Metoprolol Metoprolol 2021-0 No BID Metoprolol Tartrate 25 Tartrate 25 9-28 Tartrate MG MG 00:00: 25 MG 00 Metoprolol Metoprolol 2021-0 No BID Metoprolol Tartrate 25 Tartrate 25 9-28 Tartrate MG MG 00:00: 25 MG 00 Metoprolol Metoprolol 2021-0 No BID Metoprolol Tartrate 25 Tartrate 25 9-28 Tartrate MG MG 00:00: 25 MG 00 Trospium Trospium 2022- No 1{table QD Trospium Chloride 20 Chloride 20 12-24 t_at_be Chloride MG MG 00:00: 00:00 dtime_o 20 MG 00 :00 n_an_em pty_sto mach} Trospium Trospium 2022- No 1{table QD Trospium Chloride 20 Chloride 20 12-24 t_at_be Chloride MG MG 00:00: 00:00 dtime_o 20 MG 00 :00 n_an_em pty_sto mach} Trospium Trospium 2021-2022- No 1{table QD Trospium Chloride 20 Chloride 20 12-24 t_at_be Chloride MG MG 00:00: 00:00 dtime_o 20 MG 00 :00 n_an_em pty_sto mach} Trospium Trospium 2021-2022- No 1{table QD Trospium Chloride 20 Chloride 20 12-24 t_at_be Chloride MG MG 00:00: 00:00 dtime_o 20 MG 00 :00 n_an_em pty_sto mach} Trospium Trospium 2021-2022- No 1{table QD Trospium Chloride 20 Chloride 20 12-24 t_at_be Chloride MG MG 00:00: 00:00 dtime_o 20 MG 00 :00 n_an_em pty_sto mach} Trospium Trospium 2021-2022- No 1{table QD Trospium Chloride 20 Chloride 20 12-24 t_at_be Chloride MG MG 00:00: 00:00 dtime_o 20 MG 00 :00 n_an_em pty_sto mach} Trospium Trospium 2021-2022- No 1{table QD Trospium Chloride 20 Chloride 20 12-24 t_at_be Chloride MG MG 00:00: 00:00 dtime_o 20 MG 00 :00 n_an_em pty_sto mach} Trospium Trospium 2021-2022- No 1{table QD Trospium Chloride 20 Chloride 20 12-24 t_at_be Chloride MG MG 00:00: 00:00 dtime_o 20 MG 00 :00 n_an_em pty_sto mach} Trospium Trospium 2021-2022- No 1{table QD Trospium Chloride 20 Chloride 20 12-24 t_at_be Chloride MG MG 00:00: 00:00 dtime_o 20 MG 00 :00 n_an_em pty_sto mach} Trospium Trospium 2021-0 2023- No 1{table QD Trospium Chloride 20 Chloride 20 12-24 t_at_be Chloride MG MG 00:00: 00:00 dtime_o 20 MG 00 :00 n_an_em pty_sto mach} Trospium Trospium 2021-3- No 1{table QD Trospium Chloride 20 Chloride 20 12-24 t_at_be Chloride MG MG 00:00: 00:00 dtime_o 20 MG 00 :00 n_an_em pty_sto mach} Trospium Trospium 2021-2022- No 1{table QD Trospium Chloride 20 Chloride 20 12-24 t_at_be Chloride MG MG 00:00: 00:00 dtime_o 20 MG 00 :00 n_an_em pty_sto mach} Trospium Trospium 2021-2022- No 1{table QD Trospium Chloride 20 Chloride 20 12-24 t_at_be Chloride MG MG 00:00: 00:00 dtime_o 20 MG 00 :00 n_an_em pty_sto mach} Trospium Trospium 2021-2022- No 1{table QD Trospium Chloride 20 Chloride 20 12-24 t_at_be Chloride MG MG 00:00: 00:00 dtime_o 20 MG 00 :00 n_an_em pty_sto mach} Trospium Trospium 2021-3- No 1{table QD Trospium Chloride 20 Chloride 20 12-24 t_at_be Chloride MG MG 00:00: 00:00 dtime_o 20 MG 00 :00 n_an_em pty_sto mach} Trospium Trospium 2021-3- No 1{table QD Trospium Chloride 20 Chloride 20 12-24 t_at_be Chloride MG MG 00:00: 00:00 dtime_o 20 MG 00 :00 n_an_em pty_sto mach} Trospium Trospium 2021-2022- No 1{table QD Trospium Chloride 20 Chloride 20 12-24 t_at_be Chloride MG MG 00:00: 00:00 dtime_o 20 MG 00 :00 n_an_em pty_sto mach} Trospium Trospium 3- No 1{table QD Trospium Chloride 20 Chloride 20 12-24-10 t_at_be Chloride MG MG 00:00: 00:00 dtime_o 20 MG 00 :00 n_an_em pty_sto mach} Melatonin Yes as UT 10 MG 12-18 directed Health tablet 15:05: Orally 34 Turmeric Yes 1{capsu QD Take 1 UT Curcumin 12-18 le} capsule by Healt h 500 MG 15:05: mouth 1 capsule 34 (one) time each day. busPIRone Yes 1{tbl} Q6H Take 1 UT (Buspar) 5 12-18 tablet by Heal th MG tablet 15:05: mouth 34 every 6 (six) hours if needed. lisinopril Yes 20mg QD Take 20 mg U T 20 MG 12-18 by mouth 1 Health tablet 15:05: (one) time 34 each day. inFLIXimab Yes See UT (Remicade) 12-18 administra Hea lth 100 MG 15:05: tion injection 34 instructio ns. folic acid Yes 1 (one) UT (Folvite) 1 12-18 time each Hea l[facility] MG tablet 15:05: [...] needed [facility] Base) 15:05: MCG/ACT 34 inhaler Melatonin Yes as UT 10 MG 12-18 directed Health tablet 15:05: Orally 34 Turmeric Yes 1{capsu QD Take 1 UT Curcumin 12-18 le} capsule by Healt [facility] 500 MG 15:05: mouth 1 capsule 34 (one) time each day. busPIRone Yes 1{tbl} Q6H Take 1 UT (Buspar) 5 12-18 tablet by Heal th MG tablet 15:05: mouth 34 every 6 (six) hours if needed. lisinopril Yes 20mg QD Take 20 mg U T 20 MG 12-18 by mouth 1 Health tablet 15:05: (one) [...] 34 Tafluprost, Yes 1 (one) UT PF, - time each Health (Zioptan) 15:05: day at [...] needed [facility] Base) 15:05: MCG/ACT 34 inhaler Melatonin Yes as UT 10 MG 12-18 directed Health tablet 15:05: Orally 34 Turmeric Yes 1{capsu QD Take 1 UT Curcumin 12-18 le} capsule by Healt [facility] 500 MG 15:05: mouth 1 capsule 34 (one) time each day. busPIRone Yes 1{tbl} Q6H Take 1 UT (Buspar) 5 12-18 tablet by Heal th MG tablet 15:05: mouth 34 every 6 (six) hours if needed. lisinopril Yes 20mg QD Take 20 mg U T 20 MG 12-18 by mouth 1 Health tablet 15:05: (one) time 34 each day. inFLIXimab Yes See UT (Remicade) 12-18 administra Hea lth 100 MG 15:05: tion injection 34 instructio ns. folic acid Yes 1 (one) UT (Folvite) 1 - time each Hea lth MG tablet 15:05: day at the 34 same time. B Complex Yes 1{tbl} QD Take 1 UT Vitamins 12-18 tablet by [facility] (Vitamin 15:05: mouth 1 B-Complex) 34 (one) [...] 0.0015 % 34 same time. solution cycloSPORIN 2021-0 Yes 1 drop UT E 12-18 into Health (Restasis) 15:05: affected 0.05 % 34 eye ophthalmic emulsion fluticasone 2021-0 Yes 2{puff} QD Inhale 2 UT (Flovent 12-18 puffs 1 Health Diskus) 50 15:05: (one) time MCG/BLIST 34 each day. diskus inhaler albuterol 2021-0 Yes 2 puffs as UT 108 (90 12-18 needed Health Base) 15:05: MCG/ACT 34 inhaler clotrimazol 2021-0 Yes [id number] Q.5D Apply UT e 12-18 topically Health (Lotrimin) 00:00: 2 (two) 1 % cream 00 times a day. clotrimazol 2021-0 Yes [id number] Q.5D Apply UT e 12-18 topically Health (Lotrimin) 00:00: 2 (two) 1 % cream 00 times a day. clotrimazol 2021-0 Yes [id number] Q.5D Apply UT e 12-18 topically Health (Lotrimin) 00:00: 2 (two) 1 % cream 00 times a day. nystatin 2021-0 Yes UT (Mycostatin 12-12 Health ) [id number] 00:00: UNIT/ML 00 suspension nystatin 2021-0 Yes UT (Mycostatin 12-12 Health ) [id number] 00:00: UNIT/ML 00 suspension Cipro 500 Cipro 500 2021-0 2- No 1{table BID Cipro 500 MG MG 12-05 t} MG 00:00: 00:00 00 :00 clonazePAM 2-0 Yes UT (KlonoPIN) 8 Health 1 MG tablet 00:00: 00 clonazePAM 2-0 Yes UT (KlonoPIN) 11-30 Health 1 MG tablet 00:00: 00 clonazePAM 2-0 Yes UT (KlonoPIN) 8 Health 1 MG tablet 00:00: 00 carbidopa-l 2022-0 Yes UT evodopa 11-20 Health (Sinemet) 00:00: 25-100 MG 00 tablet carbidopa-l 2-0 Yes UT evodopa 11-20 Health (Sinemet) 00:00: 25-100 MG 00 tablet carbidopa-l 2-0 Yes UT evodopa 8-09 Health (Sinemet) 00:00: 25-100 MG 00 tablet simvastatin 2021-0 Yes UT (Zocor) 20 7-21 Health MG tablet 00:00: 00 simvastatin 2-0 Yes UT (Zocor) 20 7-21 Health MG tablet 00:00: 00 simvastatin 2-0 Yes UT (Zocor) 20 7-21 Health MG tablet 00:00: 00 Toujeo Max 2021-0 Yes UT SoloStar 7-18 Health 300 UNIT/ML 00:00: solution 00 pen-injecto r Toujeo Max 2021-0 Yes UT SoloStar 7-18 Health 300 UNIT/ML 00:00: solution 00 pen-injecto r Toujeo Max 2021-0 Yes UT SoloStar 7-18 Health 300 UNIT/ML 00:00: solution 00 pen-injecto r montelukast 2021-0 Yes UT (Singulair) 6-10 Health 10 MG 00:00: tablet 00 montelukast 2021-0 Yes UT (Singulair) 6-10 Health 10 MG 00:00: tablet 00 montelukast 2-0 Yes UT (Singulair) 6-10 Health 10 MG 00:00: tablet 00 Diclofenac Diclofenac 2-0 2- No TID Diclofenac Sodium 1 % Sodium 1 % 09-14 Sodium 1 % 00:00: 00:00 00 :00 Diclofenac Diclofenac 2022-0 2022- No TID Diclofenac Sodium 1 % Sodium 1 % 09-14 Sodium 1 % 00:00: 00:00 00 :00 Diclofenac Diclofenac 2022-0 2022- No TID Diclofenac Sodium 1 % Sodium 1 % 09-14 Sodium 1 % 00:00: 00:00 00 :00 Diclofenac Diclofenac 2022-0 2022- No TID Diclofenac Sodium 1 % Sodium 1 % 09-14 Sodium 1 % 00:00: 00:00 00 :00 Diclofenac Diclofenac 2022-0 2022- No TID Diclofenac Sodium 1 % Sodium 1 % 09-14 Sodium 1 % 00:00: 00:00 00 :00 Diclofenac Diclofenac 2022-0 2022- No TID Diclofenac Sodium 1 % Sodium 1 % 09-14 Sodium 1 % 00:00: 00:00 00 :00 Diclofenac Diclofenac 2022-0 2022- No TID Diclofenac Sodium 1 % Sodium 1 % 09-14 Sodium 1 % 00:00: 00:00 00 :00 Diclofenac Diclofenac 2022-0 2022- No TID Diclofenac Sodium 1 % Sodium 1 % 09-14 Sodium 1 % 00:00: 00:00 00 :00 Diclofenac Diclofenac 2022-0 2022- No TID Diclofenac Sodium 1 % Sodium 1 % 09-14 Sodium 1 % 00:00: 00:00 00 :00 Diclofenac Diclofenac 2022-0 2022- No TID Diclofenac Sodium 1 % Sodium 1 % 09-14 Sodium 1 % 00:00: 00:00 00 :00 Diclofenac Diclofenac 2022-0 2022- No TID Diclofenac Sodium 1 % Sodium 1 % 09-14 Sodium 1 % 00:00: 00:00 00 :00 Diclofenac Diclofenac 2022-0 2022- No TID Diclofenac Sodium 1 % Sodium 1 % 09-14 Sodium 1 % 00:00: 00:00 00 :00 Diclofenac Diclofenac 2022-0 2022- No TID Diclofenac Sodium 1 % Sodium 1 % 09-14 Sodium 1 % 00:00: 00:00 00 :00 Cipro 500 Cipro 500 2-0 2- No 1{table BID Cipro 500 MG MG 09-14 t} MG 00:00: 00:00 00 :00 Cipro 500 Cipro 500 2-0 2022- No 1{table BID Cipro 500 MG MG 09-14 t} MG 00:00: 00:00 00 :00 metoprolol 2-0 Yes UT succinate 3-30 Health XL 00:00: (Toprol-XL) 00 50 MG 24 hr tablet metoprolol 2021-0 Yes UT succinate 3-30 Health XL 00:00: (Toprol-XL) 00 50 MG 24 hr tablet metoprolol 2-0 Yes UT succinate 3-30 Health XL 00:00: (Toprol-XL) 00 50 MG 24 hr tablet Oxybutynin Oxybutynin 2020-2- No 1{table BID Oxybutynin Chloride 5 Chloride 5 2-14 - t} Chloride 5 MG MG 00:00: 00:00 MG 00 :00 Oxybutynin Oxybutynin 2020-04- No 1{table BID Oxybutynin Chloride 5 Chloride 5 -14 14 t} Chloride 5 MG MG 00:00: 00:00 MG 00 :00 Oxybutynin Oxybutynin 2020-04- No 1{table BID Oxybutynin Chloride 5 Chloride 5 2-14 -14 t} Chloride 5 MG MG 00:00: 00:00 MG 00 :00 Oxybutynin Oxybutynin 2020-04- No 1{table BID Chloride 5 Chloride 5 -14 -14 t} MG MG 00:00: 00:00 00 :00 Oxybutynin Oxybutynin 2020-04- No 1{table BID Oxybutynin Chloride 5 Chloride 5 -14 14 t} Chloride 5 MG MG 00:00: 00:00 MG 00 :00 Myrbetriq Myrbetriq 2020-04- No 1{table QD Myrbetriq 25 MG 25 MG 05-27 t} 25 MG 00:00: 00:00 00 :00 Cipro 250 Cipro 250 2020-04- No 1{table BID Cipro 250 MG MG 05-22 t} MG 00:00: 00:00 00 :00 Stiolto 2020-04 Yes UT Respimat 1-05 Health 2.5-2.5 00:00: MCG/ACT 00 aerosol solution inhaler Stiolto 2020-04 Yes UT Respimat 1-05 Health 2.5-2.5 00:00: MCG/ACT 00 aerosol solution inhaler Stiolto 2020-04 Yes UT Respimat 1-05 Health 2.5-2.5 00:00: MCG/ACT 00 aerosol solution inhaler Ibandronate Ibandronate 2020-04 No 1{table Ibandronat Sodium 150 Sodium 150 0-18 t} e Sodium MG MG 00:00: 150 MG 00 Ibandronate Ibandronate 2020-04 No 1{table Ibandronat Sodium 150 Sodium 150 0-18 t} e Sodium MG MG 00:00: 150 MG 00 Ibandronate Ibandronate 2020-04 No 1{table Ibandronat Sodium 150 Sodium 150 0-18 t} e Sodium MG MG 00:00: 150 MG 00 Ibandronate Ibandronate 2020-04 No 1{table Ibandronat Sodium 150 Sodium 150 0-18 t} e Sodium MG MG 00:00: 150 MG 00 Ibandronate Ibandronate 2020-04 No 1{table Ibandronat Sodium 150 Sodium 150 0-18 t} e Sodium MG MG 00:00: 150 MG 00 Ibandronate Ibandronate 2020-04 No 1{table Ibandronat Sodium 150 Sodium 150 0-18 t} e Sodium MG MG 00:00: 150 MG 00 Ibandronate Ibandronate 2020-04 No 1{table Ibandronat Sodium 150 Sodium 150 0-18 t} e Sodium MG MG 00:00: 150 MG 00 Ibandronate Ibandronate 2020-04 No 1{table Ibandronat Sodium 150 Sodium 150 0-18 t} e Sodium MG MG 00:00: 150 MG 00 Ibandronate Ibandronate 2020-04 No 1{table Ibandronat Sodium 150 Sodium 150 0-18 t} e Sodium MG MG 00:00: 150 MG 00 Ibandronate Ibandronate 2020-04 No 1{table Ibandronat Sodium 150 Sodium 150 0-18 t} e Sodium MG MG 00:00: 150 MG 00 Ibandronate Ibandronate 2020-04 No 1{table Ibandronat Sodium 150 Sodium 150 0-18 t} e Sodium MG MG 00:00: 150 MG 00 Ibandronate Ibandronate 2020-04 No 1{table Ibandronat Sodium 150 Sodium 150 0-18 t} e Sodium MG MG 00:00: 150 MG 00 Ibandronate Ibandronate 2020-04 No 1{table Ibandronat Sodium 150 Sodium 150 0-18 t} e Sodium MG MG 00:00: 150 MG 00 Ibandronate Ibandronate 2020-04 No 1{table Ibandronat Sodium 150 Sodium 150 0-18 t} e Sodium MG MG 00:00: 150 MG 00 Ibandronate Ibandronate 2020-04 No 1{table Ibandronat Sodium 150 Sodium 150 0-18 t} e Sodium MG MG 00:00: 150 MG 00 Ibandronate Ibandronate 2020-04 No 1{table Ibandronat Sodium 150 Sodium 150 0-18 t} e Sodium MG MG 00:00: 150 MG 00 Ibandronate Ibandronate 2020-04 No 1{table Ibandronat Sodium 150 Sodium 150 0-18 t} e Sodium MG MG 00:00: 150 MG 00 Ibandronate Ibandronate 2020-04 No 1{table Ibandronat Sodium 150 Sodium 150 0-18 t} e Sodium MG MG 00:00: 150 MG 00 Ibandronate Ibandronate 2020-04 No 1{table Ibandronat Sodium 150 Sodium 150 0-18 t} e Sodium MG MG 00:00: 150 MG 00 Ibandronate Ibandronate 2020-04 No 1{table Ibandronat Sodium 150 Sodium 150 0-18 t} e Sodium MG MG 00:00: 150 MG 00 Ibandronate Ibandronate 2020-04 No 1{table Ibandronat Sodium 150 Sodium 150 0-18 t} e Sodium MG MG 00:00: 150 MG 00 Ibandronate Ibandronate 2020-04 No 1{table Ibandronat Sodium 150 Sodium 150 0-18 t} e Sodium MG MG 00:00: 150 MG 00 Ibandronate Ibandronate 2020-04 No 1{table Ibandronat Sodium 150 Sodium 150 0-18 t} e Sodium MG MG 00:00: 150 MG 00 Ibandronate Ibandronate 2020-04 No 1{table Ibandronat Sodium 150 Sodium 150 0-18 t} e Sodium MG MG 00:00: 150 MG 00 Ibandronate Ibandronate 2020-04 No 1{table Ibandronat Sodium 150 Sodium 150 0-18 t} e Sodium MG MG 00:00: 150 MG 00 Ibandronate Ibandronate 2020-04 No 1{table Ibandronat Sodium 150 Sodium 150 0-18 t} e Sodium MG MG 00:00: 150 MG 00 Ibandronate Ibandronate 2020- No 1{table Ibandronat Sodium 150 Sodium 150 0-18 t} e Sodium MG MG 00:00: 150 MG 00 Ibandronate Ibandronate 2020-04 No 1{table Sodium 150 Sodium 150 0-18 t} MG MG 00:00: 00 Ibandronate Ibandronate 2020- No 1{table Ibandronat Sodium 150 Sodium 150 0-18 t} e Sodium MG MG 00:00: 150 MG 00 Ibandronate Ibandronate 2020-04 No 1{table Ibandronat Sodium 150 Sodium 150 0-18 t} e Sodium MG MG 00:00: 150 MG 00 Ibandronate Ibandronate 2020-04 No 1{table Ibandronat Sodium 150 Sodium 150 0-18 t} e Sodium MG MG 00:00: 150 MG 00 Ibandronate Ibandronate 2020-04 No 1{table Ibandronat Sodium 150 Sodium 150 0-18 t} e Sodium MG MG 00:00: 150 MG 00 Ibandronate Ibandronate 2020-04 No 1{table Ibandronat Sodium 150 Sodium 150 0-18 t} e Sodium MG MG 00:00: 150 MG 00 Ibandronate Ibandronate 2020-04 No 1{table Ibandronat Sodium 150 Sodium 150 0-18 t} e Sodium MG MG 00:00: 150 MG 00 Ibandronate Ibandronate 2020-04 No 1{table Ibandronat Sodium 150 Sodium 150 0-18 t} e Sodium MG MG 00:00: 150 MG 00 Ibandronate Ibandronate 2020-04 No 1{table Ibandronat Sodium 150 Sodium 150 0-18 t} e Sodium MG MG 00:00: 150 MG 00 Triamcinolo Triamcinolo No 1{appli BID Triamcinol ne ne 2-10 cation_ one Acetonide Acetonide 00:00: to_affe Acetonide 0.1 % 0.1 % 00 cted_ar 0.1 % ea} Triamcinolo Triamcinolo No 1{appli BID Triamcinol ne ne 2-10 cation_ one Acetonide Acetonide 00:00: to_affe Acetonide 0.1 % 0.1 % 00 cted_ar 0.1 % ea} CINNAMON 2020-0 Yes 1000mg QD Take 1,000 M ethodi BARK ORAL 6-[address] 11:01: mouth [facility]osp[facility] 48 daily. l cycloSPORIN 2020-0 Yes 5% QD Apply 5 % M ethodi E -[address] (RESTASIS) 11:01: daily. Hospi ta 0.05 % 48 l ophthalmic emulsion biotin 1 mg 2020-0 Yes 1mg QD Take 1 mg M ethodi capsule [address] 11:01: daily. Hospita 48 [...] capsule 48 l budesonide 2020-0 Yes 6mg Q.[id number] Take 6 mg [facility] EC 6-02 [id number] mouth [address] (ENTOCORT 11:01: 3D (three) Hospi ta EC) 3 mg 24 48 times a l hr capsule day. omega 2020-0 Yes 1000mg QD Take 1,000 Meth escobar 3-dha-epa-f 6-[address] [facility] oil 11:01: mouth [facility]ospita (FISH OIL) 48 daily. l 1,000 mg (120 mg-180 mg) capsule gabapentin 2020-0 Yes 300mg Q.[id number] Take 300 [facility] (NEURONTIN) -02 [id number] mg by s t 300 mg 11:01: 3D mouth 3 Hospita capsule 48 (three) l times a day. garlic 1 mg 2020-0 Yes 1mg QD Take 1 mg M ethodi capsule [address] 11:01: daily. Hospita 48 [...] with l mL) pen breakfast. injector fluticasone 2020-0 Yes 2{spray QD 2 sprays [facility] propionate 02 } by Each st (FLONASE) 11:01: Nare route Ho spita 50 48 nightly. l mcg/actuati on nasal spray CINNAMON 2020-0 Yes 1000mg QD Take 1,000 M ethodi BARK ORAL 6-[address] 11:01: mouth [facility]ospita 48 daily. l cycloSPORIN 2020-0 Yes 5% QD Apply 5 % M ethodi E [address] (RESTASIS) 11:01: daily. Hospi ta 0.05 % 48 l ophthalmic emulsion biotin 1 mg 2020-0 Yes 1mg QD Take 1 mg M ethodi capsule [address] 11:01: daily. Hospita 48 l clonAZEPAM 2020-0 Yes 1mg QD Take 1 mg [facility] (KlonoPIN) -[address] 1 MG tablet 11:01: [...] capsule 48 l budesonide 2020-0 Yes 6mg Q.[id number] Take 6 mg [facility] EC 6-02 [id number] by mouth [address] (ENTOCORT 11:01: 3D (three) Hospi ta EC) 3 mg 24 48 times a l hr capsule day. omega 2020-0 Yes 1000mg QD Take 1,000 Meth escobar 3-dha-epa-f 6-[address] [facility] oil 11:01: mouth [facility]osp[facility] (FISH OIL) 48 daily. l 1,000 mg (120 mg-180 mg) capsule gabapentin 2020-0 Yes 300mg Q.[id number] Take 300 [facility] (NEURONTIN) 6-02 [id number] mg by s t 300 mg 11:01: [...] l 2.5-2.5 daily. mcg/actuati on inhalation solution CINNAMON 2020-0 Yes 1000mg QD Take 1,000 M ethodi BARK ORAL 6-[address] 11:01: mouth [facility]osp[facility] 48 daily. l cycloSPORIN 2020-0 Yes 5% QD Apply 5 % M ethodi E 6-[address] (RESTASIS) 11:01: daily. Hospi [...] capsule 48 l budesonide 2020-0 Yes 6mg Q.[id number] Take 6 mg [facility] EC 6-02 [id number] by mouth [address] (ENTOCORT 11:01: 3D (three) Hospi ta EC) 3 mg 24 48 times a l hr capsule day. omega 2020-0 Yes 1000mg QD Take 1,000 Meth escobar 3-dha-epa-f 6-[address] [facility] oil 11:01: mouth [facility]osp[facility] (FISH OIL) 48 daily. l 1,000 mg (120 mg-180 mg) capsule gabapentin 2020-0 Yes 300mg Q.[id number] Take 300 [facility] (NEURONTIN) 6-02 [id number] mg by s t 300 mg 11:01: [...] 48 daily. l (241.3 mg magnesium) tablet b complex 2020-0 Yes 1{tbl} QD Take 1 Meth escobar vitamins 6-[address] tablet 11:01: mouth [facility]ospita 48 daily. l melatonin 3 2020-0 Yes 3mg QD Take [...] with l mL) pen breakfast. injector fluticasone 2020-0 Yes 2{spray QD 2 sprays [facility] propionate 6-02 } by Each st (FLONASE) 11:01: Nare route Ho spita 50 48 nightly. l mcg/actuati on nasal spray cholecalcif 2020-0 Yes 1000U QD Take 1,000 [...] with l mL) pen breakfast. injector fluticasone 2020-0 Yes 2{spray QD 2 sprays [facility] propionate 6- } by Each st (FLONASE) 11:01: Nare route Ho spita 50 48 nightly. l mcg/actuati on nasal spray CINNAMON 2020-0 Yes 1000mg QD Take 1,000 M ethodi BARK ORAL 6-[address] 11:01: mouth [facility]ospita 48 daily. l cycloSPORIN 2020-0 Yes 5% QD Apply 5 % M ethodi E 6-[address] (RESTASIS) 11:01: daily. Hospi [...] capsule 48 l budesonide 2020-0 Yes 6mg Q.[id number] Take 6 mg [facility] EC 6-02 [id number] [address] mouth [address] (ENTOCORT 11:01: 3D (three) Hospi ta EC) 3 mg 24 48 times a l hr capsule day. omega 2020-0 Yes 1000mg QD Take 1,000 Meth escobar 3-dha-epa-f 6-[address] [facility] oil 11:01: mouth [facility]ospita (FISH OIL) 48 daily. l 1,000 mg (120 mg-180 mg) capsule gabapentin 2020-0 Yes 300mg Q.[id number] Take 300 [facility] (NEURONTIN) 6-02 [id number] mg by s t 300 mg 11:01: [...] with l mL) pen breakfast. injector fluticasone 2020-0 Yes 2{spray QD 2 sprays [facility] propionate 02 } by Each [facility] (FLONASE) 11:01: Nare route Ho spita 50 48 nightly. l mcg/actuati on nasal spray CINNAMON 2020-0 Yes 1000mg QD Take 1,000 [facility] BARK ORAL 6-[address] 11:01: [facility] 48 daily. l cycloSPORIN 2020-0 Yes 5% QD Apply 5 % [facility] E [address] (RESTASIS) 11:01: daily. Hospi ta 0.05 % 48 l ophthalmic emulsion biotin 1 mg 2020-0 Yes 1mg QD Take 1 mg [facility] capsule [address] 11:01: daily. [facility]ospita 48 [...] capsule 48 l budesonide 2020-0 Yes 6mg Q.[id number] Take 6 mg [facility] EC 6-02 [id number] by mouth [facility] (ENTOCORT 11:01: 3D (three) Hospi ta EC) 3 mg 24 48 times a l hr capsule day. omega 2020-0 Yes 1000mg QD Take 1,000 Meth escobar 3-dha-epa-f 6-[address] [facility] oil 11:01: [facility] (FISH OIL) 48 daily. l 1,000 mg (120 mg-180 mg) capsule gabapentin 2020-0 Yes 300mg Q.[id number] Take 300 [facility] (NEURONTIN) 6-02 [id number] mg by s t 300 mg 11:01: [...] with l mL) pen breakfast. injector fluticasone 2020-0 Yes 2{spray QD 2 sprays [facility] propionate 6-02 } by Each st (FLONASE) 11:01: Nare route [facility] 50 48 nightly. l mcg/actuati on nasal spray CINNAMON 2020-0 Yes 1000mg QD Take 1,000 [facility] BARK ORAL 6-[address] 11:01: [facility] 48 daily. l cycloSPORIN 2020-0 Yes 5% QD Apply 5 % M [facility] E 6-[address] (RESTASIS) 11:01: daily. Hospi [...] capsule 48 l budesonide 2020-0 Yes 6mg Q.[id number] Take 6 mg [facility] EC 6-02 [id number] by mouth [facility] (ENTOCORT 11:01: 3D (three) Hospi ta EC) 3 mg 24 48 times a l hr capsule day. omega 2020-0 Yes 1000mg QD Take 1,000 Meth escobar 3-dha-epa-f 6-[address] [facility] oil 11:01: [facility] (FISH OIL) 48 daily. l 1,000 mg (120 mg-180 mg) capsule gabapentin 2020-0 Yes 300mg Q.[id number] Take 300 [facility] (NEURONTIN) 6-02 [id number] mg by s t 300 mg 11:01: [...] with l mL) pen breakfast. injector fluticasone 2020-0 Yes 2{spray QD 2 sprays [facility] propionate 6-02 } by Each [facility] (FLONASE) 11:01: Nare route [facility] 50 48 nightly. l mcg/actuati on nasal spray NovoFine NovoFine 2020-0 Yes Na Bassett as Co mmon Plus Plus 2-12 directed [facility] 00:[facility]: - [facility] NovoFine NovoFine 2020-0 No QD NovoFine Plus 32G X Plus 32G X 2-12 Plus 32G X 4 MM 4 MM 00:00: 4 MM 00 NovoFine NovoFine 2020-0 No QD NovoFine Plus 32G X Plus 32G X 2-12 Plus 32G X 4 MM 4 MM 00:00: 4 MM 00 cyanocobala 2020-0 Yes [id number] 1000ug [facility] min 1-[facility] injection 20:15: [facility]ospita 1,000 mcg 00 l cyanocobala 2020-0 Yes [id number] 1000ug [facility] min [facility] injection 20:15: [facility]ospita 1,000 mcg 00 l cyanocobala 2020-0 Yes [id number] 1000ug [facility] min [facility] injection 20:15: [facility]ospita 1,000 mcg 00 l cyanocobala 2020-0 Yes [id number] 1000ug [facility] min [facility] injection 20:15: [facility]ospita 1,000 mcg 00 l cyanocobala 2020-0 Yes [id number] 1000ug [facility] min [facility] injection 20:15: [facility]ospita 1,000 mcg 00 l cyanocobala 2020-0 Yes [id number] 1000ug [facility] min [facility] injection 20:15: [facility]ospita 1,000 mcg 00 l syringe 2020-0 Yes [id number] 20{syri 20 [facility] with needle 1-14 nge} Syringes st 3 mL 25 x 00:00: take as [facility] ta 58" 00 directed l syringe (As directed). syringe 2020-0 Yes [id number] 20{syri 20 Met [facility] with needle 1-14 nge} Syringes st 3 mL 25 x 00:00: take as Hospi ta 08/19" directed l syringe (As directed). syringe 2019-0 Yes [id number] 20{syri 20 Met [facility] with needle 1-14 nge} Syringes st 3 mL 25 x 00:00: take as [facility]pi ta 58" directed l syringe (As directed). syringe 2020-0 Yes [id number] 20{syri 20 Met [facility] with needle 1-14 nge} Syringes st 3 mL 25 x 00:00: take as [facility] 58" 00 directed l syringe (As directed). syringe 2020-0 Yes [id number] 20{syri 20 Met [facility] with needle 1-14 nge} Syringes st 3 mL 25 x 00:00: take as [facility] 58" directed l syringe (As directed). syringe 2020-0 Yes [id number] 20{syri 20 Met [facility] with needle 1-14 nge} Syringes st 3 mL 25 x 00:00: take as [facility] 58" 00 directed l syringe (As directed). methotrexat 2019-0 Yes 2.5mg Take 2.5 M ethodi e 2.5 MG 5-[address] tablet 00:00: [facility] 00 l methotrexat 2019-0 Yes 2.5mg Take 2.5 M ethodi e 2.5 MG 5-[address] tablet 00:00: mouth. [facility] 00 l methotrexat 2018-0 Yes 2.5mg Take 2.5 M ethodi e 2.5 MG 5-[address] tablet 00:00: mouth. [facility] 00 l methotrexat Yes 2.5mg Take 2.5 M ethodi e 2.5 MG 5-[address] tablet 00:00: mouth. [facility]ospita l methotrexat Yes 2.5mg Take 2.5 M ethodi e 2.5 MG 5-[address] tablet 00:00: mouth. [facility]osp[facility] 00 l methotrexat Yes 2.5mg Take 2.5 M ethodi e 2.5 MG 5-[address] tablet 00:00: mouth. [facility]ospita l folic acid Yes 1mg QD Take 1 mg [facility] (FOLVITE) 1 5-[address] MG tablet 00:00: daily. [facility] folic acid Yes 1mg QD Take 1 mg [facility] (FOLVITE) 1 5-[address] MG tablet 00:00: daily. Hospit [facility] folic acid Yes 1mg QD Take 1 mg [facility] (FOLVITE) 1 5-[address] MG tablet 00:00: daily. Hospit a l folic acid Yes 1mg QD Take 1 mg [facility] (FOLVITE) 1 5-[address] MG tablet 00:00: daily. Hospit a 00 l folic acid Yes 1mg QD Take 1 mg [facility] (FOLVITE) 1 5-[address] MG tablet 00:00: daily. Hospit a 00 l folic acid Yes 1mg QD [...] (two) Center ophthalmic times emulsion daily. latanoprost 2018-0 Yes 1[drp] QD Place [address] [facility] (XALATAN) 6-16 [facility] 0.005 % 13:15: both eyes Medic al ophthalmic 32 nightly. Cente r solution fluticasone 2018-0 Yes 2{puff} QD Inhale [address] [facility] (FLOVENT 6-16 puffs by [facility] DISKUS) 50 13:15: mouth via [place] dical mcg/actuati 32 inhaler Cente r on diskus daily. inhaler clonazePAM 2018-0 Yes 1mg QD Take [address] [facility] [address] [facility] (KLONOPIN) 6-16 by [facility] 1 MG tablet 13:15: nightly. Me dical 32 Center ibandronate 2017-0 Yes 150mg Take [address] (BONIVA) 6-16 mg by [facility] 150 mg 13:15: mouth Medical tablet 32 every 30 Center (thirty) days Take in AM with glass of water prior to food, don't lie down for 30 minutes. . tiotropium- 2018-0 Yes 2{puff} QD Inhale [address] [facility] [address] olodaterol 6-16 puffs by [facility] (STIOLTO 13:15: mouth via [facility] RESPIMAT) 32 inhaler Center 2.5-2.5 daily. mcg/actuati on Mist lisinopril 2017-0 Yes 20mg QD Take [address] (PRINIVIL,Z 6-16 by mouth [facility] ESTRIL) 20 13:15: daily. Medic al MG tablet 32 Center omeprazole 2017-0 Yes 40mg QD Take [address] (PRILOSEC) 6-16 [facility] 40 MG 13:15: daily. Medical capsule 32 Center simvastatin 2018-0 Yes 20mg QD Take [address] [facility] (ZOCOR) 20 6-16 by mouth [facility] MG tablet 13:15: nightly. Medi jerod 32 Center gabapentin 2018-0 Yes 300mg Q.[id number] Take [address] [facility] (NEURONTIN) 6-16 [id number] mg by L [facility] 300 MG 13:15: 3D mouth 3 Medical capsule 32 (three) Center times daily. DULoxetine 2018-0 Yes 60mg QD Take [address] (CYMBALTA) 6-16 by [facility] 60 MG 13:15: daily. Medical capsule 32 Center montelukast 2018-0 Yes 10mg QD Take 10 mg [facility] [...] /BIFIDO 13:15: mouth Medical LONGUM 32 daily. Liberal (PROBIOTIC PEARLS ORAL) magnesium 2018-0 Yes 400mg QD Take [address] [facility] [address] oxide 6-16 mg by [facility] (MAG-OX) 13:15: mouth Medical 400 mg 32 daily. Liberal tablet CINNAMON 2018-0 Yes 1000mg QD Take 1,[address] BARK 6-16 mg by [facility] (CINNAMON 13:15: mouth Medical ORAL) 32 daily. Liberal coenzyme 2018-0 Yes 200mg QD Take [address] [facility] Q10 200 mg 6-16 mg by [facility] capsule 13:15: mouth Medical 32 daily. Liberal b complex 2018-0 Yes 1{tbl} QD Take [...] [facility] root 6-16 le} capsule by [employer] extract 500 13:15: mouth 2 Med ical mg Cap 32 (two) Center times daily. garlic 2018-0 Yes 1{capsu Q.5D Take [address] [facility] 1,000 mg 6-16 le} capsule by [employer] Cap 13:15: mouth 2 Medical 32 (two) Center times daily. multivitami 2018-0 Yes 1{capsu QD Take [address] n capsule 6-16 le} capsule by Luke s 13:15: mouth Medical 32 daily. Liberal omega-3 2017-0 Yes 1{capsu QD Take 1 [facility] fatty 6-16 le} capsule by [employer] acids-fish 13:15: mouth Medica l oil (FISH 32 daily. Center OIL) 360-1,200 mg Cap cholecalcif 2017-0 Yes 5000U QD Take 5,[address] cristi, 6-16 Units by [employer] vitamin D3, 13:15: mouth Medic al 5,000 unit 32 daily. Center Tab melatonin 2018-0 Yes 1{tbl} QD Take [address] [facility] 10 mg Tab 6-16 tablet by [employer] 13:15: mouth Medical 32 nightly. Liberal liraglutide 2017-0 Yes 1.8mg Inject 1.[address] 0.6 mg/0.1 6-16 mg [facility] mL (18 mg/3 13:15: subcutaneo Medical mL) PnIj 32 usly daily Cente r with breakfast. insulin 2017-0 Yes 50U QD Inject 50 [facility] glargine 6-16 Units [facility] (TOUJEO 13:15: subcutaneo Medi jerod SOLOSTAR) 32 usly Center 300 unit/mL nightly . (1.5 mL) InPn syringe insulin 2017-0 Yes 10U Inject 10 [facility] aspart 6-16 [facility] (NOVOLOG) 13:15: subcutaneo Me dical 100 unit/mL 32 usly 3 Center injection (three) times daily before meals. cycloSPORIN 2018-0 Yes 1[drp] Q.5D Place [address] E 6-16 drop into [facility] (RESTASIS) 13:15: both eyes Me dical 0.05 % 32 2 (two) Center ophthalmic times emulsion daily. latanoprost 2018-0 Yes 1[drp] QD Place [address] (XALATAN) 6-16 drop into [facility] 0.005 % 13:15: both eyes Medic al ophthalmic 32 nightly. Cente r solution fluticasone 2018-0 Yes 2{puff} QD Inhale [address] [facility] (FLOVENT 6-16 puffs by [facility] DISKUS) 50 13:15: mouth via Me dical mcg/actuati 32 inhaler Cente r on diskus daily. inhaler clonazePAM 2017-0 Yes 1mg QD Take [address] [facility] [address] [facility] (KLONOPIN) 6-16 by mouth [facility] 1 MG tablet 13:15: nightly. Me dical 32 Center ibandronate 0 Yes 150mg [...] puffs by [facility] (STIOLTO 13:15: mouth via [facility] RESPIMAT) 32 inhaler Center 2.5-2.5 daily. [...] 13:15: nightly. Medi jerod 32 Center gabapentin 0 Yes 300mg Q.[id number] Take [address] [facility] (NEURONTIN) 6-16 [id number] mg by L [facility] 300 MG 13:15: 3D mouth 3 Medical capsule 32 (three) Center times daily. DULoxetine 2018-0 Yes 60mg QD Take [address] (CYMBALTA) 6-16 by mouth [facility] 60 MG 13:15: daily. Medical capsule 32 Center montelukast 2018-0 Yes 10mg QD Take 10 mg [facility] [...] /BIFIDO 13:15: mouth Medical LONGUM 32 daily. Liberal (PROBIOTIC PEARLS ORAL) magnesium 2018-0 Yes 400mg QD Take [address] [facility] oxide 6-16 mg by [facility] (MAG-OX) 13:15: mouth Medical 400 mg 32 daily. Liberal tablet CINNAMON 2018-0 Yes 1000mg QD Take 1,[address] BARK 6-16 mg by [facility] (CINNAMON 13:15: mouth Medical ORAL) 32 daily. Liberal coenzyme 2018-0 Yes 200mg QD Take [address] Q10 200 mg 6-16 mg by [facility] capsule 13:15: mouth Medical 32 daily. Liberal b complex 2017-0 Yes 1{tbl} QD Take [address] [facility] vitamins 6-16 tablet by [facility] tablet 13:15: mouth Medical 32 daily. Liberal niacin 500 2018-0 Yes 500mg Q.5D Take [address] MG CR 6-16 mg by [facility] capsule 13:15: mouth 2 Medical 32 (two) Center times daily. APPLE CIDER 2018-0 Yes 450mg Q.5D Take [address] VINEGAR 6-16 mg by [facility] ORAL 13:15: mouth 2 Medical 32 (two) Center times daily. turmeric 2017-0 Yes 1{capsu Q.5D Take [address] [facility] root 6-16 le} capsule by [employer] extract 500 13:15: mouth 2 Med ical mg Cap 32 (two) Center times daily. garlic 2017-0 Yes 1{capsu Q.5D Take [address] [facility] 1,000 mg 6-16 le} capsule by [employer] Cap 13:15: mouth 2 Medical 32 (two) Center times daily. multivitami 2017-0 Yes 1{capsu QD Take [address] n capsule 6-16 le} capsule by Luke s 13:15: mouth Medical 32 daily. Liberal omega-3 2017-0 Yes 1{capsu QD Take 1 [facility] fatty 6-16 le} capsule by [employer] acids-fish 13:15: mouth Medica l oil (FISH 32 daily. Center OIL) 360-1,200 mg Cap cholecalcif 2017-0 Yes 5000U QD Take 5,[address] cristi, 6-16 Units by [employer] vitamin D3, 13:15: mouth Medic al 5,000 unit 32 daily. Liberal Tab melatonin 2018-0 Yes 1{tbl} QD Take [address] [facility] [address] 10 mg Tab 6-16 tablet by [facility] 13:15: mouth Medical 32 nightly. Liberal liraglutide 2017-0 Yes 1.8mg Inject 1.[address] 0.6 mg/0.1 6-16 mg [facility] mL (18 mg/3 13:15: subcutaneo Medical mL) PnIj 32 usly daily Cente r with breakfast. insulin 2017-0 Yes 50U QD Inject 50 [facility] glargine 6-16 [facility] (TOUJEO 13:15: subcutaneo Medi jerod SOLOSTAR) 32 usly Center 300 unit/mL nightly . (1.5 mL) InPn syringe insulin 2018-0 Yes 10U Inject 10 [facility] aspart 6-16 [facility] (NOVOLOG) 13:15: subcutaneo Me dical 100 unit/mL 32 usly 3 Center injection (three) times daily before meals. cycloSPORIN 2018-0 Yes 1[drp] Q.5D Place [address] E 6-16 drop into [facility] (RESTASIS) 13:15: both eyes Me dical 0.05 % 32 2 (two) Center ophthalmic times emulsion daily. latanoprost 2017-0 Yes 1[drp] QD Place [address] (XALATAN) 6-16 drop into [facility] 0.005 % 13:15: both eyes Medic al ophthalmic 32 nightly. Cente r solution fluticasone 2017-0 Yes 2{puff} QD Inhale [address] [facility] (FLOVENT 6-16 puffs by [facility] DISKUS) 50 13:15: mouth via Me dical mcg/actuati 32 inhaler Cente r on diskus daily. inhaler clonazePAM 2017-0 Yes 1mg QD Take [address] [facility] [address] [facility] (KLONOPIN) 6-16 by mouth [facility] 1 MG tablet 13:15: nightly. Me dical 32 Center ibandronate 0 Yes 150mg Take [address] (BONIVA) 6-16 mg by [facility] 150 mg 13:15: mouth Medical tablet 32 every 30 Center (thirty) days Take in AM with glass of water prior to food, don't lie down for 30 minutes. . tiotropium- 2018-0 Yes 2{puff} QD Inhale [address] [facility] [address] olodaterol 6-16 puffs by [facility] (STIOLTO 13:15: mouth via [facility] jerod RESPIMAT) 32 inhaler Center 2.5-2.5 daily. mcg/actuati on Mist lisinopril 2017-0 Yes 20mg QD Take [address] (PRINIVIL,Z 6-16 by mouth [facility] s ESTRIL) 20 13:15: daily. Medic al MG tablet 32 Center omeprazole 2017-0 Yes 40mg QD Take [address] (PRILOSEC) 6-16 by mouth [facility] 40 MG 13:15: daily. Medical capsule 32 Center simvastatin 2018-0 Yes 20mg QD Take [address] [facility] (ZOCOR) 20 6-16 by mouth [facility] MG tablet 13:15: nightly. Medi jerod 32 Center gabapentin 2018-0 Yes 300mg Q.[id number] Take [address] [facility] (NEURONTIN) 6-16 [id number] mg by L [facility]kes 300 MG 13:15: 3D mouth 3 Medical capsule 32 (three) Center times daily. DULoxetine 2018-0 Yes 60mg QD Take [address] (CYMBALTA) 6-16 by mouth [facility] 60 MG 13:15: daily. Medical capsule 32 Center montelukast 2018-0 Yes 10mg QD Take 10 mg [facility] [...] /BIFIDO 13:15: mouth Medical LONGUM 32 daily. Liberal (PROBIOTIC PEARLS ORAL) magnesium 2018-0 Yes 400mg QD Take [address] oxide 6-16 mg by [facility] (MAG-OX) 13:15: mouth Medical 400 mg 32 daily. Liberal tablet CINNAMON 2018-0 Yes 1000mg QD Take 1,[address] BARK 6-16 mg by [facility] (CINNAMON 13:15: mouth Medical ORAL) 32 daily. Liberal coenzyme 2018-0 Yes 200mg QD Take [address] Q10 200 mg 6-16 mg by [facility] capsule 13:15: mouth Medical 32 daily. Liberal b complex 2018-0 Yes 1{tbl} QD Take [address] [facility] vitamins 6-16 tablet by [facility] tablet 13:15: mouth Medical 32 daily. Liberal niacin 500 2018-0 Yes 500mg Q.5D Take [...] [facility] root 6-16 le} capsule by [employer] extract 500 13:15: mouth 2 Med ical mg Cap 32 (two) Center times daily. garlic 2018-0 Yes 1{capsu Q.5D Take [address] [facility] 1,000 mg 6-16 le} capsule by [employer] Cap 13:15: mouth 2 Medical 32 (two) Center times daily. multivitami 2018-0 Yes 1{capsu QD Take [address] n capsule 6-16 le} capsule by Luke s 13:15: mouth Medical 32 daily. Liberal omega-3 2018-0 Yes 1{capsu QD Take 1 [facility] fatty 6-16 le} capsule by [employer] acids-fish 13:15: mouth Medica l oil (FISH 32 daily. Liberal OIL) 360-1,200 mg Cap cholecalcif 2018-0 Yes 5000U QD Take 5,[address] cristi, 6-16 Units by [employer] vitamin D3, 13:15: mouth Medic al 5,000 unit 32 daily. Liberal Tab melatonin 2018-0 Yes 1{tbl} QD Take [address] [facility] 10 mg Tab 6-16 tablet by [facility] 13:15: mouth Medical 32 nightly. Liberal liraglutide 2018-0 Yes 1.8mg Inject 1.[address] 0.6 mg/0.1 6-16 mg [facility] mL (18 mg/3 13:15: subcutaneo Medical mL) PnIj 32 usly daily Cente r with breakfast. insulin 2018-0 Yes 50U QD Inject 50 [facility] glargine 6-16 [facility] (TOUJEO 13:15: subcutaneo [facility] jerod SOLOSTAR) 32 usly Center 300 unit/mL nightly . (1.5 mL) InPn syringe insulin 2017-0 Yes 10U Inject 10 [facility] aspart 6-16 [facility] (NOVOLOG) 13:15: subcutaneo Me dical 100 unit/mL 32 usly 3 Center injection (three) times daily before meals. cycloSPORIN 2018-0 Yes 1[drp] Q.5D Place [address] E 6-16 drop into [facility] (RESTASIS) 13:15: both eyes Me dical 0.05 % 32 2 (two) Center ophthalmic times emulsion daily. latanoprost 2017-0 Yes 1[drp] QD Place [address] (XALATAN) 6-16 drop into [facility] 0.005 % 13:15: both eyes Medic al ophthalmic 32 nightly. Cente r solution fluticasone 2017-0 Yes 2{puff} QD Inhale [address] [facility] (FLOVENT 6-16 puffs by [facility] DISKUS) 50 13:15: mouth via Me dical mcg/actuati 32 inhaler Cente r on diskus daily. inhaler clonazePAM 0 Yes 1mg QD Take [address] [facility] (KLONOPIN) 6-16 by mouth [facility] 1 MG tablet 13:15: nightly. Me dical 32 Center insulin 20180 Yes 50U QD Inject 50 [facility] glargine 6-16 [facility] (TOUJEO 13:15: subcutaneo [facility] SOLOSTAR) 32 usly Center 300 unit/mL nightly . (1.5 mL) InPn syringe ibandronate 2017-0 Yes 150mg Take [address] (BONIVA) 6-16 mg by [facility] 150 mg 13:15: mouth Medical tablet 32 every 30 Center (thirty) days Take in AM with glass of water prior to food, don't lie down for 30 minutes. . tiotropium- 2018-0 Yes 2{puff} QD Inhale [address] [facility] [address] olodaterol 6-16 puffs by [facility] (STIOLTO 13:15: mouth via [facility] RESPIMAT) 32 inhaler Center 2.5-2.5 daily. mcg/actuati on Mist lisinopril 2018-0 Yes 20mg QD Take [address] (PRINIVIL,Z 6-16 by mouth [facility] ESTRIL) 20 13:15: daily. Medic al MG tablet 32 Center omeprazole 2018-0 Yes 40mg QD Take [address] (PRILOSEC) 6-16 by mouth [facility] 40 MG 13:15: daily. Medical capsule 32 Center simvastatin 2018-0 Yes 20mg QD Take [address] [facility] (ZOCOR) 20 6-16 by mouth [facility] MG tablet 13:15: nightly. [facility] 32 Center gabapentin 2018-0 Yes 300mg Q.[id number] Take [address] [facility] (NEURONTIN) 6-16 [id number] mg by L ukes 300 MG 13:15: 3D mouth 3 Medical capsule 32 (three) Center times daily. DULoxetine 2018-0 Yes 60mg QD Take 60 mg C [...] (two) Medical tablet 32 times Center daily. insulin 2018-0 Yes 10U Inject 10 [facility] aspart 6-16 [facility] (NOVOLOG) 13:15: subcutaneo Me dical 100 unit/mL 32 usly 3 Center injection (three) times daily before meals. econazole 2018-0 Yes Q.5D Apply [facility] [...] [facility] oxide 6-16 mg by [facility] (MAG-OX) 13:15: mouth Medical 400 mg 32 daily. Center tablet CINNAMON 2018-0 Yes 1000mg QD Take 1,[address] BARK 6-16 mg by [facility] (CINNAMON 13:15: mouth Medical ORAL) 32 daily. Center coenzyme 2018-0 Yes 200mg QD Take [address] Q10 200 mg 6-16 mg by [facility] capsule 13:15: mouth Medical 32 daily. Liberal b complex 2018-0 Yes 1{tbl} QD Take [...] 2 Medical 32 (two) Center times daily. cycloSPORIN 2018-0 Yes 1[drp] Q.5D Place [address] E 6-16 drop into [facility] (RESTASIS) 13:15: both eyes Me dical 0.05 % 32 2 (two) Center ophthalmic times emulsion daily. turmeric 2018-0 Yes 1{capsu Q.5D Take [address] [facility] root 6-16 le} capsule by [facility] extract 500 13:15: mouth 2 Med ical mg Cap 32 (two) Center times daily. garlic 2018-0 Yes 1{capsu Q.5D Take [address] [facility] 1,000 mg 6-16 le} capsule by [facility] Cap 13:15: mouth 2 Medical 32 (two) Center times daily. multivitami 2018- Yes 1{capsu QD Take [address] n capsule 6-16 le} capsule by Luke s 13:15: mouth Medical 32 daily. Liberal omega-3 2018- Yes 1{capsu QD Take 1 [facility] fatty 6-16 le} capsule by [facility] acids-fish 13:15: mouth Medica l oil (FISH 32 daily. Liberal OIL) 360-1,200 mg Cap cholecalcif 20180 Yes 5000U QD Take 5,[address] cristi, 6-16 Units by [employer] vitamin D3, 13:15: mouth Medic al 5,000 unit 32 daily. Liberal Tab melatonin Yes 1{tbl} QD Take [address] [facility] 10 mg Tab 6-16 tablet by [facility] 13:15: mouth Medical 32 nightly. Liberal liraglutide Yes 1.8mg Inject 1.[address] 0.6 mg/0.1 6-16 mg [facility] mL (18 mg/3 13:15: subcutaneo Medical mL) PnIj 32 usly daily Cente r with breakfast. latanoprost Yes 1[drp] QD Place [address] (XALATAN) 6-16 drop into [facility] 0.005 % 13:15: both eyes Medic al ophthalmic 32 nightly. Cente r solution fluticasone Yes 2{puff} QD Inhale [address] [facility] (FLOVENT 6-16 puffs by [facility] DISKUS) 50 13:15: mouth via [place] dical mcg/actuati 32 inhaler Cente r on diskus daily. inhaler clonazePAM 0 Yes 1mg QD Take [address] [facility] [address] [facility] (KLONOPIN) 6-16 by mouth [facility] 1 MG tablet 13:15: nightly. Ny dical 32 Liberal ibandronate 0 Yes 150mg Take [address] (BONIVA) 6-16 mg by [facility] 150 mg 13:15: mouth Medical tablet 32 every 30 Center (thirty) days Take in AM with glass of water prior to food, don't lie down for 30 minutes. . tiotropium- 2017-0 Yes 2{puff} QD Inhale [address] [facility] [address] olodaterol 6-16 puffs by [facility] (STIOLTO 13:15: mouth via [facility] RESPIMAT) 32 inhaler Center 2.5-2.5 daily. mcg/actuati on Mist lisinopril 2018-0 Yes 20mg QD Take [address] (PRINIVIL,Z 6-16 by mouth Luke s ESTRIL) 20 13:15: daily. Medic al MG tablet 32 Center omeprazole 2018-0 Yes 40mg QD Take [address] (PRILOSEC) 6-16 by mouth [facility] 40 MG 13:15: daily. Medical capsule 32 Center simvastatin 2018-0 Yes 20mg QD Take [address] [facility] (ZOCOR) 20 6-16 by mouth [facility] MG tablet 13:15: nightly. [facility] 32 Center gabapentin 2018-0 Yes 300mg Q.[id number] Take [address] [facility] (NEURONTIN) 6-16 [id number] mg by L ukes 300 MG 13:15: 3D mouth 3 Medical capsule 32 (three) Center times daily. DULoxetine 2018-0 Yes 60mg QD Take [address] (CYMBALTA) 6-16 by mouth [facility] 60 MG 13:15: daily. Medical capsule 32 Center montelukast 2018-0 Yes 10mg QD Take 10 mg [facility] [...] /BIFIDO 13:15: mouth Medical LONGUM 32 daily. Liberal (PROBIOTIC PEARLS ORAL) magnesium 2018-0 Yes 400mg QD Take [address] oxide 6-16 mg by [facility] (MAG-OX) 13:15: mouth Medical 400 mg 32 daily. Center tablet CINNAMON 2018-0 Yes 1000mg QD Take 1,[address] BARK 6-16 mg by [facility] (CINNAMON 13:15: mouth Medical ORAL) 32 daily. Center coenzyme 2018-0 Yes 200mg QD Take [address] Q10 200 mg 6-16 mg by [facility] capsule 13:15: mouth Medical 32 daily. Liberal b complex 2018-0 Yes 1{tbl} QD Take [address] [facility] vitamins 6-16 tablet by [facility] tablet 13:15: mouth Medical 32 daily. Liberal niacin 500 2018-0 Yes 500mg Q.5D Take [...] St root 6-16 le} capsule by [facility] extract 500 13:15: mouth 2 Med ical mg Cap 32 (two) Center times daily. garlic 2018-0 Yes 1{capsu Q.5D Take [address] [facility] 1,000 mg 6-16 le} capsule by [facility] Cap 13:15: mouth 2 Medical 32 (two) Center times daily. multivitami 2018-0 Yes 1{capsu QD Take [address] n capsule 6-16 le} capsule by Luke s 13:15: mouth Medical 32 daily. Liberal omega-3 2018-0 Yes 1{capsu QD Take 1 [facility] fatty 6-16 le} capsule by [facility] acids-fish 13:15: mouth Medica l oil (FISH 32 daily. Liberal OIL) 360-1,200 mg Cap cholecalcif 2018-0 Yes 5000U QD Take 5,[address] cristi, 6-16 Units by [facility] vitamin D3, 13:15: mouth Medic al 5,000 unit 32 daily. Center Tab melatonin 20180 Yes 1{tbl} QD Take [address] [facility] 10 mg Tab 6-16 tablet by [facility] 13:15: mouth Medical 32 nightly. Center liraglutide Yes 1.8mg Inject 1.[address] 0.6 mg/0.1 6-16 mg [facility] mL (18 mg/3 13:15: subcutaneo Medical mL) PnIj 32 usly daily Cente r with breakfast. insulin Yes 50U QD Inject 50 [facility] [...] ophthalmic 32 nightly. Cente r solution fluticasone 2017-0 Yes 2{puff} QD Inhale [address] [facility] (FLOVENT 6-16 puffs by [facility] DISKUS) 50 13:15: mouth via Me dical mcg/actuati 32 inhaler Cente r on diskus daily. inhaler clonazePAM Yes 1mg QD Take [address] [facility] (KLONOPIN) 6-16 by mouth [facility] 1 MG tablet 13:15: nightly. Me dical 32 Center ibandronate Yes 150mg Take [address] (BONIVA) 6-16 mg by [facility] 150 mg 13:15: mouth Medical tablet 32 every 30 Center (thirty) days Take in AM with glass of water prior to food, don't lie down for 30 minutes. . tiotropium- 2018-0 Yes 2{puff} QD Inhale [address] [address] olodaterol 6-16 puffs by [facility] (STIOLTO 13:15: mouth via [facility] RESPIMAT) 32 inhaler Center 2.5-2.5 daily. mcg/actuati on Mist lisinopril 2018-0 Yes 20mg QD Take [address] (PRINIVIL,Z 6-16 by mouth Luke s ESTRIL) 20 13:15: daily. Medic al MG tablet 32 Center omeprazole 2018-0 Yes 40mg QD Take [address] (PRILOSEC) 6-16 by mouth [facility] 40 MG 13:15: daily. Medical capsule Center simvastatin 2018-0 Yes 20mg QD Take [address] [facility] (ZOCOR) 20 6-16 by mouth [facility] MG tablet 13:15: nightly. [address] gabapentin 2018-0 Yes 300mg Q.[id number] Take [address] [facility] (NEURONTIN) 6-16 [id number] mg by L ukes 300 MG 13:15: 3D mouth 3 Medical capsule 32 (three) Center times daily. DULoxetine 2018-0 Yes 60mg QD Take [address] (CYMBALTA) 6-16 by mouth [facility] 60 MG 13:15: daily. Medical capsule 32 Center montelukast 2017-0 Yes 10mg QD Take [address] [facility] (SINGULAIR) 6-16 by mouth [facility] 10 mg 13:15: nightly. Medical tablet 32 Liberal albuterol 2017-0 Yes 2{puff} Inhale 2 C [...] /BIFIDO 13:15: mouth Medical LONGUM 32 daily. Liberal (PROBIOTIC PEARLS ORAL) magnesium 2018-0 Yes 400mg QD Take [address] oxide 6-16 mg by [facility] (MAG-OX) 13:15: mouth Medical 400 mg 32 daily. Center tablet CINNAMON 2018-0 Yes 1000mg QD Take 1,[address] BARK 6-16 mg by [facility] (CINNAMON 13:15: mouth Medical ORAL) 32 daily. Center coenzyme 2018-0 Yes 200mg QD Take [address] Q10 200 mg 6-16 mg by [facility] capsule 13:15: mouth Medical 32 daily. Liberal b complex 2018-0 Yes 1{tbl} QD Take [address] [facility] vitamins 6-16 tablet by [employer] tablet 13:15: mouth Medical 32 daily. Liberal niacin 500 2018-0 Yes 500mg Q.5D Take [...] [facility] root 6-16 le} capsule by [employer] extract 500 13:15: mouth 2 Med ical mg Cap 32 (two) Center times daily. garlic 2018-0 Yes 1{capsu Q.5D Take [address] [facility] 1,000 mg 6-16 le} capsule by [facility] Cap 13:15: mouth 2 Medical 32 (two) Center times daily. multivitami 2018-0 Yes 1{capsu QD Take [address] n capsule 6-16 le} capsule by Luke s 13:15: mouth Medical 32 daily. Liberal omega-3 2018-0 Yes 1{capsu QD Take 1 [facility] fatty 6-16 le} capsule by [employer] acids-fish 13:15: mouth Medica l oil (FISH 32 daily. Liberal OIL) 360-1,200 mg Cap cholecalcif Yes 5000U QD Take 5,[address] cristi, 6-16 Units by [employer] vitamin D3, 13:15: mouth Medic al 5,000 unit 32 daily. Liberal Tab melatonin Yes 1{tbl} QD Take [address] [facility] 10 mg Tab 6-16 tablet by [employer] 13:15: mouth Medical 32 nightly. Liberal liraglutide Yes 1.8mg Inject 1.[address] 0.6 mg/0.1 6-16 mg [facility] mL (18 mg/3 13:15: subcutaneo Medical mL) PnIj 32 usly daily Cente r with breakfast. DICLOFENAC 2016-04 Yes TAKE 1 Unive rs [...] MEALS latanoprost Yes Univer s 0.005 % 9- ity of ophthalmic 00:00: [place] drops 00 [facility] latanoprost Yes Univer s 0.005 % 9- ity of ophthalmic 00:00: [place] drops 00 [facility] Branch latanoprost Yes Univer s 0.005 % 9-22 ity of ophthalmic 00:00: [place] drops 00 [facility] Branch latanoprost Yes Univer s 0.005 % 9- ity of ophthalmic 00:00: [place] drops 00 Medical Branch fluticasone Yes Univer s 50 9-21 ity of mcg/actuati 00:00: [place] on nasal 00 Medical spray Branch fluticasone 2017-0 Yes Univer s 50 9-21 ity of mcg/actuati 00:00: [place] on nasal 00 Medical spray Branch fluticasone 2017-0 Yes Univer s 50 9-21 ity of mcg/actuati 00:00: [place] on nasal 00 Medical spray Branch fluticasone 2017-0 Yes [facility] 50 9-21 ity of mcg/actuati 00:00: [place] on nasal 00 [facility] DULoxetine 2017-0 Yes [facility] 60 mg 9-18 ity of capsule 00:00: [place] [facility] gabapentin 2017-0 Yes [facility] 300 mg 9-18 ity of capsule 00:00: [place] [address] [facility] montelukast 2017-0 Yes [facility] 10 mg 9-18 ity of tablet 00:00: [place] [address] [facility] DULoxetine 2017-0 Yes [facility] 60 mg 9-18 ity of capsule 00:00: [place] [address] [facility] gabapentin 2017-0 Yes [facility] 300 mg 9-18 ity of capsule 00:00: [place] [facility] montelukast 2017-0 Yes [facility] 10 mg 9-18 ity of tablet 00:00: [place] [address] [facility] DULoxetine 2017-0 Yes [facility] 60 mg 9-18 ity of capsule 00:00: [place] [id number] [facility] gabapentin 2017-0 Yes [facility] 300 mg 9-18 ity of capsule 00:00: [place] [facility] montelukast 2017-0 Yes Univer s 10 mg 9-18 ity of tablet 00:00: [place] [address] [facility] DULoxetine 2017-0 Yes [facility] 60 mg 9-18 ity of capsule 00:00: [place] [facility] gabapentin 2017-0 Yes [facility] 300 mg 9-18 ity of capsule 00:00: [place] [address] [facility] montelukast 2017-0 Yes Univer s 10 mg 9-18 ity of tablet 00:00: [place] [address] [facility] clonazePAM 2017-0 Yes [facility] 1 mg tablet 9-14 ity of 00:00: [place] [address] [facility] clonazePAM 2017-0 Yes [facility] 1 mg tablet 9-14 ity of 00:00: [place] [address] [facility] clonazePAM 2017-0 Yes [facility] 1 mg tablet 9-14 ity of 00:00: [place] [address] [facility] clonazePAM 2017-0 Yes [facility] 1 mg tablet 9-14 ity of 00:00: [place] [address] [facility] RESTASIS 2017-0 Yes [facility] 0.05 % 9-12 ity of ophthalmic 00:00: [place] [facility] ibandronate 2017-0 Yes Univer s 150 mg 9-12 ity of tablet 00:00: [facility] lisinopril 2017-0 Yes [facility] 20 mg 9-12 ity of tablet 00:00: [place] [facility] RESTASIS 2017-0 Yes [facility] 0.05 % 9-12 ity of ophthalmic 00:00: [place] [facility] ibandronate 2017-0 Yes Univer s 150 mg 9-12 ity of tablet 00:00: [place] [facility] lisinopril 2017-0 Yes [facility] 20 mg 9-12 ity of tablet 00:00: [place] [facility] RESTASIS 2017-0 Yes [facility] 0.05 % 9-12 ity of ophthalmic 00:00: [place] [facility] ibandronate 2017-0 Yes Univer s 150 mg 9-12 ity of tablet 00:00: [place] [facility] lisinopril 2017-0 Yes [facility] 20 mg 9-12 ity of tablet 00:00: [place] [facility] RESTASIS 2017-0 Yes [facility] 0.05 % 9-12 ity of ophthalmic 00:00: [place] [facility] ibandronate 2017-0 Yes Univer s 150 mg 9-12 ity of tablet 00:00: [place] [facility] lisinopril 2017-0 Yes [facility] 20 mg 9-12 ity of tablet 00:00: [place] [facility] omeprazole 2017-0 Yes [facility] 40 mg 8-22 ity of capsule 00:00: [place] [facility] omeprazole 2017-0 Yes [facility] 40 mg 8-22 ity of capsule 00:00: [place] [facility] omeprazole 2017-0 Yes [facility] 40 mg 8-22 ity of capsule 00:00: [place] [facility] omeprazole 2017-0 Yes [facility] 40 mg 8-22 ity of capsule 00:00: [place] [facility] NOVOLOG 2017-0 Yes [facility] FLEXPEN 100 8-20 ity of unit/mL 00:00: [place] injection [facility] NOVOLOG 2017-0 Yes [facility] FLEXPEN 100 8-20 ity of unit/mL 00:00: [place] injection [facility] NOVOLOG 2017-0 Yes [facility] FLEXPEN 100 8-20 ity of unit/mL 00:00: [place] injection [facility] NOVOLOG 2017-0 Yes [facility] FLEXPEN 100 8-20 ity of unit/mL 00:00: [place] injection 00 [facility] TOUJEO Yes [facility] SOLOSTAR 8-03 ity of [...] mg/3 00 Medical mL) Branch injection simvastatin Yes Univer s 20 mg 7-17 ity of tablet 00:00: [place] [facility] simvastatin Yes Univer s 20 mg 7-17 ity of tablet 00:00: [place] [facility] simvastatin Yes Univer s 20 mg 7-17 ity of tablet 00:00: [place] [facility] simvastatin Yes Univer s 20 mg 7-17 ity of tablet 00:00: [place] [facility] Latanoprost Latanoprost Yes Na [facility] 1 drop Common into [facility] affected - [facility] eye [facility] Gabapentin Gabapentin Yes Na Bassett 1 capsule Common [facility] Memantine Memantine Yes Na Bassett TAKE 1 Common HCl HCl TABLET BY Spirit MOUTH - [facility] TWICE St DAILY [facility] Oxybutynin Oxybutynin Yes Na Bassett 1 tablet Common Chloride Chloride Spirit - [facility] Vitamin D3 Vitamin D3 Yes Na Bassett one tab Common [facility] Ketoconazol Ketoconazol Yes Na Bassett 1 Common e e applicatio Spirit n to - [facility] affected [facility] BD Pen BD Pen Yes Na Bassett as Common Needle Vita Needle Vita directed Spirit U/F U/F - [facility] Zofran ODT Zofran ODT Yes Na Bassett 1tablet Common [facility] Econazole Econazole Yes Na Bassett 1 Co mmon Nitrate Nitrate applicatio Spi rit n to - [facility] affected [facility] Flonase Flonase Yes Na Bassett USE 2 Commo n SPRAYS IN Spirit EACH - [facility] NOSTRIL [facility] Stiolto Stiolto Yes Na Bassett 2 puffs Com mon Respimat Respimat [facility] Toujeo Toujeo Yes Na Bassett INJECT Common SoloStar SoloStar SUBCUTANEO S pirit USLY 50 - CHI UNITS ONCE St DAILY [facility] Tylenol Tylenol Yes Na Bassett 1 tablet Co mmon as needed [facility] Fish Oil Fish Oil Yes Na Bassett 1 capsule Common [facility] Simvastatin Simvastatin Yes Na Bassett TAKE 1 Common TABLET BY Spirit MOUTH EACH - [facility]I EVENING St ONCE DAILY [facility] Restasis Restasis Yes Na Bassett 1 drop Co mmon into Spirit affected - [facility] eye [facility] Lisinopril Lisinopril Yes Na Bassett 1 tablet Common [facility] Fluoxetine Fluoxetine Yes Na Bassett 1 capsule Common HCl HCl [facility] ProAir HFA ProAir HFA Yes Na Bassett 2 puffs as Common needed [facility] Prilosec Prilosec Yes Na Bassett TAKE 1 Co mmon CAPSULE BY Spirit MOUTH - CHI DAILY [facility] Boniva Boniva Yes Na Bassett TAKE 1 Common TABLET(S) Spirit BY MOUTH - [facility] EVERY [facility] MONTH [facility] Lisinopril Lisinopril Yes Na Bassett 1 tablet Common [facility] NovoFine NovoFine Yes Na Bassett as Comm on directed Spirit - [facility] Carafate Carafate Yes Na Bassett 1 tablet Common at bedtime Spirit on an - [facility] empty [facility] stomach [facility] before Medical meals Center Clonazepam Clonazepam Yes Na Bassett 1 tablet Common on the Spirit tongue and - [facility]I allow to [facility] Donepezil Donepezil Yes Na Bassett TAKE 1 Common HCl HCl TABLET BY Spirit MOUTH AT - CHI BEDTIME [facility] Toujeo Max Toujeo Max Yes Na Bassett 22 units Common SoloStar SoloStar daily and Sp mj increase - [facility] by [address] every 3 [facility] days until Medical fbg less Center 100 max of 30 units daily. Cymbalta Cymbalta Yes Na Bassett TAKE 1 Co mmon CAPSULE Spirit WITH A - [facility]I 30MG [facility] CAPSULE TO [facility] EQUAL 90MG Medical ONCE DAILY Center Super B Super B Yes Na Bassett not Common Complex/C Complex/C defined Sp mj - [facility] Neurontin Neurontin Yes Na Bassett TAKE 1 Common CAPSULE BY Spirit MOUTH 3 - CHI TIMES St DAILY [facility] Metoprolol Metoprolol Yes Na Bassett 1/2 tablet Common Succinate Succinate Spiri t ER ER - [facility] Terbinafine Terbinafine Yes Na Bassett 1 tablet Common HCl HCl [facility] Victoza Victoza Yes Na Bassett INJECT Comm on 1.8MG Spirit SUBCUTANEO - CHI USLYDAILY [facility] Singulair Singulair Yes Na Bassett TAKE 1 Common TABLET BY Spirit MOUTH IN - CHI THE [facility] Melatonin Melatonin Yes Na Bassett as Co mmon ER ER directed Spirit [facility] Cymbalta Cymbalta Yes Na Bassett TAKE 1 Co mmon CAPSULE BY Spirit MOUTH - CHI DAILY WITH St 60 MG TO [facility] EQUAL 90 Medical MG Center NovoLog NovoLog Yes Na Bassett INJECT 5 Co mmon Flexpen Flexpen UNITS Spirit BEFORE - CHI EACH MEAL St (3 TIMES A [facility] DAY). MAX Medical DOSE: 45 Center UNITS Aspir-81 Aspir-81 Yes Na Bassett 1 tablet Common [facility] Montelukast Montelukast Yes Na Bassett TAKE 1 Common Sodium Sodium TABLET BY Spirit MOUTH IN - [facility] Remicade Remicade Yes Na Bassett as Comm on directed [facility] Budesonide Budesonide Yes Na Bassett as Common directed [facility] Clonazepam Clonazepam Yes Na Bassett 1 tablet Common [facility] Simvastatin Simvastatin Yes Na Bassett 1 tablet Common in [facility] Flonase Flonase Yes Na Bassett USE 2 Commo n Allergy Allergy SPRAYS IN Spir it Relief Relief EACH - NOSTRIL St DAILY Once [facility] a day Medical Nasally 30 Center days Calcium Calcium No Calcium Clotrimazol Clotrimazol No Clotrimazo e 10 MG e 10 MG le 10 MG NovoFine NovoFine No QD NovoFine 32G X 6 MM 32G X 6 MM 32G X 6 MM Probiotic Probiotic No Probiotic busPIRone busPIRone No busPIRone HCl 5 MG HCl 5 MG HCl 5 MG Lisinopril Lisinopril No 1{table QD Lisinopril 10 MG 10 MG t} 10 MG Diclofenac Diclofenac No Diclofenac Sodium 75 Sodium 75 Sodium 75 MG MG MG Donepezil Donepezil No Donepezil HCl 5 MG HCl 5 MG HCl 5 MG Cyanocobala Cyanocobala No 1{ml} Cyanocobal min 1000 min 1000 carcamo 1000 MCG/ML MCG/ML MCG/ML Tylenol 325 Tylenol 325 No 1{table 6xD Tylenol MG MG t_as_ne 325 MG eded} Folic Acid Folic Acid No 1{table QD Folic Acid 1 MG 1 MG t} 1 MG Fluticasone Fluticasone No Fluticason Propionate Propionate e 50 MCG/ACT 50 MCG/ACT Propionate 50 MCG/ACT Montelukast Montelukast No Montelukas Sodium 10 Sodium 10 t Sodium MG MG 10 MG DULoxetine DULoxetine No DULoxetine HCl 60 MG HCl 60 MG HCl 60 MG Simvastatin Simvastatin No 1{table QD Simvastati 20 MG 20 MG t_in_th n 20 MG e_eveni ng} Restasis Restasis No 1{drop_ BID Restasis 0.05 % 0.05 % into_af 0.05 % fected_ eye} Stiolto Stiolto No 2{puffs QD Stiolto Respimat Respimat } Respimat 2.5mcg/2.5m 2.5mcg/2.5m 2.5mcg/2.5 cg cg mcg Biotin Biotin No Biotin Ibuprofen Ibuprofen No TID Ibuprofen 200 MG 200 MG 200 MG Gabapentin Gabapentin No Gabapentin 300 MG 300 MG 300 MG Simvastatin Simvastatin No Simvastati 20 MG 20 MG n 20 MG Melatonin Melatonin No Melatonin ER 10 MG ER 10 MG ER 10 MG Zioptan Zioptan No 1{drop_ QD Zioptan 0.0015 % 0.0015 % into_af 0.0015 % fected_ eye_in_ the_eve mindy} Remicade Remicade No Remicade 100 MG 100 MG 100 MG clonazePAM clonazePAM No 1{table QD clonazePAM 1 MG 1 MG t} 1 MG Oxybutynin Oxybutynin No Oxybutynin Chloride 5 Chloride 5 Chloride 5 MG MG MG Cymbalta 30 Cymbalta 30 No Cymbalta MG MG 30 MG hydroCHLORO hydroCHLORO No 1{table QD hydroCHLOR thiazide thiazide t_in_th Othiazide 12.5 MG 12.5 MG e_morni 12.5 MG ng} Diclofenac Diclofenac No TID Diclofenac Sodium 1 % Sodium 1 % Sodium 1 % busPIRone busPIRone No 1{table busPIRone HCl 5 MG HCl 5 MG t} HCl 5 MG Clotrimazol Clotrimazol No Clotrimazo e 10 MG e 10 MG le 10 MG NovoFine NovoFine No QD NovoFine 32G X 6 MM 32G X 6 MM 32G X 6 MM DULoxetine DULoxetine No DULoxetine HCl 30 MG HCl 30 MG HCl 30 MG Omeprazole Omeprazole No Omeprazole 40 MG 40 MG 40 MG Super B Super B No Super B Complex/C Complex/C Complex/C Turmeric Turmeric No Turmeric Curcumin Curcumin Curcumin Lisinopril Lisinopril No 1{table QD Lisinopril 10 MG 10 MG t} 10 MG Diclofenac Diclofenac No Diclofenac Sodium 75 Sodium 75 Sodium 75 MG MG MG Calcium Calcium No Calcium Memantine Memantine No Memantine HCl 10 MG HCl 10 MG HCl 10 MG Toujeo Max Toujeo Max No Toujeo Max SoloStar SoloStar SoloStar 300 UNIT/ML 300 UNIT/ML 300 UNIT/ML Cyanocobala Cyanocobala No 1{ml} Cyanocobal min 1000 min 1000 carcamo 1000 MCG/ML MCG/ML MCG/ML Tylenol 325 Tylenol 325 No 1{table 6xD Tylenol MG MG t_as_ne 325 MG eded} busPIRone busPIRone No busPIRone HCl 5 MG HCl 5 MG HCl 5 MG Probiotic Probiotic No Probiotic Cymbalta 30 Cymbalta 30 No Cymbalta MG MG 30 MG Gabapentin Gabapentin No Gabapentin 300 MG 300 MG 300 MG Donepezil Donepezil No Donepezil HCl 5 MG HCl 5 MG HCl 5 MG Folic Acid Folic Acid No 1{table QD Folic Acid 1 MG 1 MG t} 1 MG Simvastatin Simvastatin No Simvastati 20 MG 20 MG n 20 MG DULoxetine DULoxetine No DULoxetine HCl 60 MG HCl 60 MG HCl 60 MG Simvastatin Simvastatin No 1{table QD Simvastati 20 MG 20 MG t_in_th n 20 MG e_eveni ng} Zioptan Zioptan No 1{drop_ QD Zioptan 0.0015 % 0.0015 % into_af 0.0015 % fected_ eye_in_ the_eve mindy} Stiolto Stiolto No 2{puffs QD Stiolto Respimat Respimat } Respimat 2.5mcg/2.5m 2.5mcg/2.5m 2.5mcg/2.5 cg cg mcg Biotin Biotin No Biotin Ibuprofen Ibuprofen No TID Ibuprofen 200 MG 200 MG 200 MG Vitamin D3 Vitamin D3 No Vitamin D3 50,000 50,000 50,000 Restasis Restasis No 1{drop_ BID Restasis 0.05 % 0.05 % into_af 0.05 % fected_ eye} Melatonin Melatonin No Melatonin ER 10 MG ER 10 MG ER 10 MG Fluticasone Fluticasone No Fluticason Propionate Propionate e 50 MCG/ACT 50 MCG/ACT Propionate 50 MCG/ACT Montelukast Montelukast No Montelukas Sodium 10 Sodium 10 t Sodium MG MG 10 MG Oxybutynin Oxybutynin No Oxybutynin Chloride 5 Chloride 5 Chloride 5 MG MG MG Remicade Remicade No Remicade 100 MG 100 MG 100 MG Cymbalta 60 Cymbalta 60 No Cymbalta MG MG 60 MG clonazePAM clonazePAM No 1{table QD clonazePAM 1 MG 1 MG t} 1 MG hydroCHLORO hydroCHLORO No 1{table QD hydroCHLOR thiazide thiazide t_in_th Othiazide 12.5 MG 12.5 MG e_morni 12.5 MG ng} Super B Super B No Super B Complex/C Complex/C Complex/C Simvastatin Simvastatin No Simvastati 20 MG 20 MG n 20 MG Oxybutynin Oxybutynin No Oxybutynin Chloride 5 Chloride 5 Chloride 5 MG MG MG Cymbalta 30 Cymbalta 30 No Cymbalta MG MG 30 MG Carbidopa-L Carbidopa-L No 1{table BID Carbidopa- evodopa evodopa t_as_ne Levodopa 25-100 MG 25-100 MG eded} 25-100 MG Zioptan Zioptan No 1{drop_ QD Zioptan 0.0015 % 0.0015 % into_af 0.0015 % fected_ eye_in_ the_eve mindy} Tylenol 325 Tylenol 325 No 1{table 6xD Tylenol MG MG t_as_ne 325 MG eded} clonazePAM clonazePAM No 1{table QD clonazePAM 1 MG 1 MG t} 1 MG Montelukast Montelukast No Montelukas Sodium 10 Sodium 10 t Sodium MG MG 10 MG Cymbalta 60 Cymbalta 60 No Cymbalta MG MG 60 MG Restasis Restasis No 1{drop_ BID Restasis 0.05 % 0.05 % into_af 0.05 % fected_ eye} Folic Acid Folic Acid No 1{table QD Folic Acid 1 MG 1 MG t} 1 MG Stiolto Stiolto No 2{puffs QD Stiolto Respimat Respimat } Respimat 2.5mcg/2.5m 2.5mcg/2.5m 2.5mcg/2.5 cg cg mcg DULoxetine DULoxetine No DULoxetine HCl 60 MG HCl 60 MG HCl 60 MG Donepezil Donepezil No BID Donepezil HCl 10 MG HCl 10 MG HCl 10 MG Remicade Remicade No Remicade 100 MG 100 MG 100 MG Calcium Calcium No Calcium DULoxetine DULoxetine No DULoxetine HCl 30 MG HCl 30 MG HCl 30 MG Melatonin Melatonin No Melatonin ER 10 MG ER 10 MG ER 10 MG Turmeric Turmeric No Turmeric Curcumin Curcumin Curcumin NovoFine NovoFine No QD NovoFine 32G X 6 MM 32G X 6 MM 32G X 6 MM Memantine Memantine No Memantine HCl 10 MG HCl 10 MG HCl 10 MG Ibuprofen Ibuprofen No TID Ibuprofen 200 MG 200 MG 200 MG busPIRone busPIRone No 1{table busPIRone HCl 5 MG HCl 5 MG t} HCl 5 MG Simvastatin Simvastatin No 1{table QD Simvastati 20 MG 20 MG t_in_th n 20 MG e_eveni ng} Toujeo Max Toujeo Max No Toujeo Max SoloStar SoloStar SoloStar 300 UNIT/ML 300 UNIT/ML 300 UNIT/ML Diclofenac Diclofenac No Diclofenac Sodium 75 Sodium 75 Sodium 75 MG MG MG hydroCHLORO hydroCHLORO No 1{table QD hydroCHLOR thiazide thiazide t_in_th Othiazide 12.5 MG 12.5 MG e_morni 12.5 MG ng} busPIRone busPIRone No busPIRone HCl 5 MG HCl 5 MG HCl 5 MG Omeprazole Omeprazole No Omeprazole 40 MG 40 MG 40 MG Vitamin D3 Vitamin D3 No Vitamin D3 50,000 50,000 50,000 Clotrimazol Clotrimazol No Clotrimazo e 10 MG e 10 MG le 10 MG Gabapentin Gabapentin No Gabapentin 300 MG 300 MG 300 MG Probiotic Probiotic No Probiotic Cyanocobala Cyanocobala No 1{ml} Cyanocobal min 1000 min 1000 carcamo 1000 MCG/ML MCG/ML MCG/ML Fluticasone Fluticasone No Fluticason Propionate Propionate e 50 MCG/ACT 50 MCG/ACT Propionate 50 MCG/ACT Biotin Biotin No Biotin Lisinopril Lisinopril No 1{table QD Lisinopril 10 MG 10 MG t} 10 MG Cymbalta 30 Cymbalta 30 No Cymbalta MG MG 30 MG Restasis Restasis No 1{drop_ BID Restasis 0.05 % 0.05 % into_af 0.05 % fected_ eye} Folic Acid Folic Acid No 1{table QD Folic Acid 1 MG 1 MG t} 1 MG Vitamin D3 Vitamin D3 No Vitamin D3 50,000 50,000 50,000 Carbidopa-L Carbidopa-L No 1{table BID Carbidopa- evodopa evodopa t_as_ne Levodopa 25-100 MG 25-100 MG eded} 25-100 MG Oxybutynin Oxybutynin No Oxybutynin Chloride 5 Chloride 5 Chloride 5 MG MG MG Cymbalta 60 Cymbalta 60 No Cymbalta MG MG 60 MG Remicade Remicade No Remicade 100 MG 100 MG 100 MG Calcium Calcium No Calcium Super B Super B No Super B Complex/C Complex/C Complex/C clonazePAM clonazePAM No 1{table QD clonazePAM 1 MG 1 MG t} 1 MG Montelukast Montelukast No Montelukas Sodium 10 Sodium 10 t Sodium MG MG 10 MG Melatonin Melatonin No Melatonin ER 10 MG ER 10 MG ER 10 MG Turmeric Turmeric No Turmeric Curcumin Curcumin Curcumin Tylenol 325 Tylenol 325 No 1{table 6xD Tylenol MG MG t_as_ne 325 MG eded} Stiolto Stiolto No 2{puffs QD Stiolto Respimat Respimat } Respimat 2.5mcg/2.5m 2.5mcg/2.5m 2.5mcg/2.5 cg cg mcg DULoxetine DULoxetine No DULoxetine HCl 60 MG HCl 60 MG HCl 60 MG Fluticasone Fluticasone No Fluticason Propionate Propionate e 50 MCG/ACT 50 MCG/ACT Propionate 50 MCG/ACT busPIRone busPIRone No busPIRone HCl 5 MG HCl 5 MG HCl 5 MG DULoxetine DULoxetine No DULoxetine HCl 30 MG HCl 30 MG HCl 30 MG Simvastatin Simvastatin No Simvastati 20 MG 20 MG n 20 MG Clotrimazol Clotrimazol No Clotrimazo e 10 MG e 10 MG le 10 MG Gabapentin Gabapentin No Gabapentin 300 MG 300 MG 300 MG Diclofenac Diclofenac No Diclofenac Sodium 75 Sodium 75 Sodium 75 MG MG MG Omeprazole Omeprazole No Omeprazole 40 MG 40 MG 40 MG NovoFine NovoFine No QD NovoFine 32G X 6 MM 32G X 6 MM 32G X 6 MM Donepezil Donepezil No BID Donepezil HCl 10 MG HCl 10 MG HCl 10 MG hydroCHLORO hydroCHLORO No 1{table QD hydroCHLOR thiazide thiazide t_in_th Othiazide 12.5 MG 12.5 MG e_morni 12.5 MG ng} Zioptan Zioptan No 1{drop_ QD Zioptan 0.0015 % 0.0015 % into_af 0.0015 % fected_ eye_in_ the_eve mindy} Ibuprofen Ibuprofen No TID Ibuprofen 200 MG 200 MG 200 MG busPIRone busPIRone No 1{table busPIRone HCl 5 MG HCl 5 MG t} HCl 5 MG Toujeo Max Toujeo Max No Toujeo Max SoloStar SoloStar SoloStar 300 UNIT/ML 300 UNIT/ML 300 UNIT/ML Cyanocobala Cyanocobala No 1{ml} Cyanocobal min 1000 min 1000 carcamo 1000 MCG/ML MCG/ML MCG/ML Biotin Biotin No Biotin Probiotic Probiotic No Probiotic Memantine Memantine No Memantine HCl 10 MG HCl 10 MG HCl 10 MG Lisinopril Lisinopril No 1{table QD Lisinopril 10 MG 10 MG t} 10 MG Oxybutynin Oxybutynin No Oxybutynin Chloride 5 Chloride 5 Chloride 5 MG MG MG Ibuprofen Ibuprofen No TID Ibuprofen 200 MG 200 MG 200 MG Carbidopa-L Carbidopa-L No 1{table BID Carbidopa- evodopa evodopa t_as_ne Levodopa 25-100 MG 25-100 MG eded} 25-100 MG Biotin Biotin No Biotin Donepezil Donepezil No BID Donepezil HCl 10 MG HCl 10 MG HCl 10 MG Calcium Calcium No Calcium Fluticasone Fluticasone No Fluticason Propionate Propionate e 50 MCG/ACT 50 MCG/ACT Propionate 50 MCG/ACT Super B Super B No Super B Complex/C Complex/C Complex/C Folic Acid Folic Acid No 1{table QD Folic Acid 1 MG 1 MG t} 1 MG DULoxetine DULoxetine No DULoxetine HCl 30 MG HCl 30 MG HCl 30 MG Vitamin D3 Vitamin D3 No Vitamin D3 50,000 50,000 50,000 Restasis Restasis No 1{drop_ BID Restasis 0.05 % 0.05 % into_af 0.05 % fected_ eye} Cymbalta 60 Cymbalta 60 No Cymbalta MG MG 60 MG Melatonin Melatonin No Melatonin ER 10 MG ER 10 MG ER 10 MG Cymbalta 30 Cymbalta 30 No Cymbalta MG MG 30 MG Clotrimazol Clotrimazol No Clotrimazo e 10 MG e 10 MG le 10 MG Tylenol 325 Tylenol 325 No 1{table 6xD Tylenol MG MG t_as_ne 325 MG eded} Diclofenac Diclofenac No Diclofenac Sodium 75 Sodium 75 Sodium 75 MG MG MG Cyanocobala Cyanocobala No 1{ml} Cyanocobal min 1000 min 1000 carcamo 1000 MCG/ML MCG/ML MCG/ML Montelukast Montelukast No Montelukas Sodium 10 Sodium 10 t Sodium MG MG 10 MG hydroCHLORO hydroCHLORO No 1{table QD hydroCHLOR thiazide thiazide t_in_th Othiazide 12.5 MG 12.5 MG e_morni 12.5 MG ng} Turmeric Turmeric No Turmeric Curcumin Curcumin Curcumin Memantine Memantine No Memantine HCl 10 MG HCl 10 MG HCl 10 MG busPIRone busPIRone No busPIRone HCl 5 MG HCl 5 MG HCl 5 MG DULoxetine DULoxetine No DULoxetine HCl 60 MG HCl 60 MG HCl 60 MG Zioptan Zioptan No 1{drop_ QD Zioptan 0.0015 % 0.0015 % into_af 0.0015 % fected_ eye_in_ the_eve mindy} Stiolto Stiolto No 2{puffs QD Stiolto Respimat Respimat } Respimat 2.5mcg/2.5m 2.5mcg/2.5m 2.5mcg/2.5 cg cg mcg Omeprazole Omeprazole No Omeprazole 40 MG 40 MG 40 MG Remicade Remicade No Remicade 100 MG 100 MG 100 MG Toujeo Max Toujeo Max No Toujeo Max SoloStar SoloStar SoloStar 300 UNIT/ML 300 UNIT/ML 300 UNIT/ML Probiotic Probiotic No Probiotic clonazePAM clonazePAM No 1{table QD clonazePAM 1 MG 1 MG t} 1 MG Lisinopril Lisinopril No 1{table QD Lisinopril 10 MG 10 MG t} 10 MG Simvastatin Simvastatin No Simvastati 20 MG 20 MG n 20 MG NovoFine NovoFine No QD NovoFine 32G X 6 MM 32G X 6 MM 32G X 6 MM Gabapentin Gabapentin No Gabapentin 300 MG 300 MG 300 MG Simvastatin Simvastatin No 1{table QD Simvastati 20 MG 20 MG t_in_th n 20 MG e_eveni ng} Oxybutynin Oxybutynin No Oxybutynin Chloride 5 Chloride 5 Chloride 5 MG MG MG Ibuprofen Ibuprofen No TID Ibuprofen 200 MG 200 MG 200 MG Carbidopa-L Carbidopa-L No 1{table BID Carbidopa- evodopa evodopa t_as_ne Levodopa 25-100 MG 25-100 MG eded} 25-100 MG Biotin Biotin No Biotin Donepezil Donepezil No BID Donepezil HCl 10 MG HCl 10 MG HCl 10 MG Calcium Calcium No Calcium Fluticasone Fluticasone No Fluticason Propionate Propionate e 50 MCG/ACT 50 MCG/ACT Propionate 50 MCG/ACT Super B Super B No Super B Complex/C Complex/C Complex/C Folic Acid Folic Acid No 1{table QD Folic Acid 1 MG 1 MG t} 1 MG DULoxetine DULoxetine No DULoxetine HCl 30 MG HCl 30 MG HCl 30 MG Vitamin D3 Vitamin D3 No Vitamin D3 50,000 50,000 50,000 Restasis Restasis No 1{drop_ BID Restasis 0.05 % 0.05 % into_af 0.05 % fected_ eye} Cymbalta 60 Cymbalta 60 No Cymbalta MG MG 60 MG Melatonin Melatonin No Melatonin ER 10 MG ER 10 MG ER 10 MG Cymbalta 30 Cymbalta 30 No Cymbalta MG MG 30 MG Clotrimazol Clotrimazol No Clotrimazo e 10 MG e 10 MG le 10 MG Tylenol 325 Tylenol 325 No 1{table 6xD Tylenol MG MG t_as_ne 325 MG eded} Diclofenac Diclofenac No Diclofenac Sodium 75 Sodium 75 Sodium 75 MG MG MG Cyanocobala Cyanocobala No 1{ml} Cyanocobal min 1000 min 1000 carcamo 1000 MCG/ML MCG/ML MCG/ML Montelukast Montelukast No Montelukas Sodium 10 Sodium 10 t Sodium MG MG 10 MG hydroCHLORO hydroCHLORO No 1{table QD hydroCHLOR thiazide thiazide t_in_th Othiazide 12.5 MG 12.5 MG e_morni 12.5 MG ng} Turmeric Turmeric No Turmeric Curcumin Curcumin Curcumin Memantine Memantine No Memantine HCl 10 MG HCl 10 MG HCl 10 MG busPIRone busPIRone No busPIRone HCl 5 MG HCl 5 MG HCl 5 MG DULoxetine DULoxetine No DULoxetine HCl 60 MG HCl 60 MG HCl 60 MG Zioptan Zioptan No 1{drop_ QD Zioptan 0.0015 % 0.0015 % into_af 0.0015 % fected_ eye_in_ the_eve mindy} Stiolto Stiolto No 2{puffs QD Stiolto Respimat Respimat } Respimat 2.5mcg/2.5m 2.5mcg/2.5m 2.5mcg/2.5 cg cg mcg Omeprazole Omeprazole No Omeprazole 40 MG 40 MG 40 MG Remicade Remicade No Remicade 100 MG 100 MG 100 MG Toujeo Max Toujeo Max No Toujeo Max SoloStar SoloStar SoloStar 300 UNIT/ML 300 UNIT/ML 300 UNIT/ML Probiotic Probiotic No Probiotic clonazePAM clonazePAM No 1{table QD clonazePAM 1 MG 1 MG t} 1 MG Lisinopril Lisinopril No 1{table QD Lisinopril 10 MG 10 MG t} 10 MG Simvastatin Simvastatin No Simvastati 20 MG 20 MG n 20 MG NovoFine NovoFine No QD NovoFine 32G X 6 MM 32G X 6 MM 32G X 6 MM Gabapentin Gabapentin No Gabapentin 300 MG 300 MG 300 MG Simvastatin Simvastatin No 1{table QD Simvastati 20 MG 20 MG t_in_th n 20 MG e_eveni ng} Oxybutynin Oxybutynin No Oxybutynin Chloride 5 Chloride 5 Chloride 5 MG MG MG Ibuprofen Ibuprofen No TID Ibuprofen 200 MG 200 MG 200 MG Carbidopa-L Carbidopa-L No 1{table BID Carbidopa- evodopa evodopa t_as_ne Levodopa 25-100 MG 25-100 MG eded} 25-100 MG Biotin Biotin No Biotin Donepezil Donepezil No BID Donepezil HCl 10 MG HCl 10 MG HCl 10 MG Calcium Calcium No Calcium Fluticasone Fluticasone No Fluticason Propionate Propionate e 50 MCG/ACT 50 MCG/ACT Propionate 50 MCG/ACT Super B Super B No Super B Complex/C Complex/C Complex/C Folic Acid Folic Acid No 1{table QD Folic Acid 1 MG 1 MG t} 1 MG DULoxetine DULoxetine No DULoxetine HCl 30 MG HCl 30 MG HCl 30 MG Vitamin D3 Vitamin D3 No Vitamin D3 50,000 50,000 50,000 Restasis Restasis No 1{drop_ BID Restasis 0.05 % 0.05 % into_af 0.05 % fected_ eye} Cymbalta 60 Cymbalta 60 No Cymbalta MG MG 60 MG Melatonin Melatonin No Melatonin ER 10 MG ER 10 MG ER 10 MG Cymbalta 30 Cymbalta 30 No Cymbalta MG MG 30 MG Clotrimazol Clotrimazol No Clotrimazo e 10 MG e 10 MG le 10 MG Tylenol 325 Tylenol 325 No 1{table 6xD Tylenol MG MG t_as_ne 325 MG eded} Diclofenac Diclofenac No Diclofenac Sodium 75 Sodium 75 Sodium 75 MG MG MG Cyanocobala Cyanocobala No 1{ml} Cyanocobal min 1000 min 1000 carcamo 1000 MCG/ML MCG/ML MCG/ML Montelukast Montelukast No Montelukas Sodium 10 Sodium 10 t Sodium MG MG 10 MG hydroCHLORO hydroCHLORO No 1{table QD hydroCHLOR thiazide thiazide t_in_th Othiazide 12.5 MG 12.5 MG e_morni 12.5 MG ng} Turmeric Turmeric No Turmeric Curcumin Curcumin Curcumin Memantine Memantine No Memantine HCl 10 MG HCl 10 MG HCl 10 MG busPIRone busPIRone No busPIRone HCl 5 MG HCl 5 MG HCl 5 MG DULoxetine DULoxetine No DULoxetine HCl 60 MG HCl 60 MG HCl 60 MG Zioptan Zioptan No 1{drop_ QD Zioptan 0.0015 % 0.0015 % into_af 0.0015 % fected_ eye_in_ the_eve mindy} Stiolto Stiolto No 2{puffs QD Stiolto Respimat Respimat } Respimat 2.5mcg/2.5m 2.5mcg/2.5m 2.5mcg/2.5 cg cg mcg Omeprazole Omeprazole No Omeprazole 40 MG 40 MG 40 MG Remicade Remicade No Remicade 100 MG 100 MG 100 MG Toujeo Max Toujeo Max No Toujeo Max SoloStar SoloStar SoloStar 300 UNIT/ML 300 UNIT/ML 300 UNIT/ML Probiotic Probiotic No Probiotic clonazePAM clonazePAM No 1{table QD clonazePAM 1 MG 1 MG t} 1 MG Lisinopril Lisinopril No 1{table QD Lisinopril 10 MG 10 MG t} 10 MG Simvastatin Simvastatin No Simvastati 20 MG 20 MG n 20 MG NovoFine NovoFine No QD NovoFine 32G X 6 MM 32G X 6 MM 32G X 6 MM Gabapentin Gabapentin No Gabapentin 300 MG 300 MG 300 MG Simvastatin Simvastatin No 1{table QD Simvastati 20 MG 20 MG t_in_th n 20 MG e_eveni ng} Oxybutynin Oxybutynin No Oxybutynin Chloride 5 Chloride 5 Chloride 5 MG MG MG Ibuprofen Ibuprofen No TID Ibuprofen 200 MG 200 MG 200 MG Carbidopa-L Carbidopa-L No 1{table BID Carbidopa- evodopa evodopa t_as_ne Levodopa 25-100 MG 25-100 MG eded} 25-100 MG Biotin Biotin No Biotin Donepezil Donepezil No BID Donepezil HCl 10 MG HCl 10 MG HCl 10 MG Calcium Calcium No Calcium Fluticasone Fluticasone No Fluticason Propionate Propionate e 50 MCG/ACT 50 MCG/ACT Propionate 50 MCG/ACT Super B Super B No Super B Complex/C Complex/C Complex/C Folic Acid Folic Acid No 1{table QD Folic Acid 1 MG 1 MG t} 1 MG DULoxetine DULoxetine No DULoxetine HCl 30 MG HCl 30 MG HCl 30 MG Vitamin D3 Vitamin D3 No Vitamin D3 50,000 50,000 50,000 Restasis Restasis No 1{drop_ BID Restasis 0.05 % 0.05 % into_af 0.05 % fected_ eye} Cymbalta 60 Cymbalta 60 No Cymbalta MG MG 60 MG Melatonin Melatonin No Melatonin ER 10 MG ER 10 MG ER 10 MG Cymbalta 30 Cymbalta 30 No Cymbalta MG MG 30 MG Clotrimazol Clotrimazol No Clotrimazo e 10 MG e 10 MG le 10 MG Tylenol 325 Tylenol 325 No 1{table 6xD Tylenol MG MG t_as_ne 325 MG eded} Diclofenac Diclofenac No Diclofenac Sodium 75 Sodium 75 Sodium 75 MG MG MG Cyanocobala Cyanocobala No 1{ml} Cyanocobal min 1000 min 1000 carcamo 1000 MCG/ML MCG/ML MCG/ML Montelukast Montelukast No Montelukas Sodium 10 Sodium 10 t Sodium MG MG 10 MG hydroCHLORO hydroCHLORO No 1{table QD hydroCHLOR thiazide thiazide t_in_ Othiazide 12.5 MG 12.5 MG e_morni 12.5 MG ng} Turmeric Turmeric No Turmeric Curcumin Curcumin Curcumin Memantine Memantine No Memantine HCl 10 MG HCl 10 MG HCl 10 MG busPIRone busPIRone No busPIRone HCl 5 MG HCl 5 MG HCl 5 MG DULoxetine DULoxetine No DULoxetine HCl 60 MG HCl 60 MG HCl 60 MG Zioptan Zioptan No 1{drop_ QD Zioptan 0.0015 % 0.0015 % into_af 0.0015 % fected_ eye_in_ the_eve mindy} Stiolto Stiolto No 2{puffs QD Stiolto Respimat Respimat } Respimat 2.5mcg/2.5m 2.5mcg/2.5m 2.5mcg/2.5 cg cg mcg Omeprazole Omeprazole No Omeprazole 40 MG 40 MG 40 MG Remicade Remicade No Remicade 100 MG 100 MG 100 MG Toujeo Max Toujeo Max No Toujeo Max SoloStar SoloStar SoloStar 300 UNIT/ML 300 UNIT/ML 300 UNIT/ML Probiotic Probiotic No Probiotic clonazePAM clonazePAM No 1{table QD clonazePAM 1 MG 1 MG t} 1 MG Lisinopril Lisinopril No 1{table QD Lisinopril 10 MG 10 MG t} 10 MG Simvastatin Simvastatin No Simvastati 20 MG 20 MG n 20 MG NovoFine NovoFine No QD NovoFine 32G X 6 MM 32G X 6 MM 32G X 6 MM Gabapentin Gabapentin No Gabapentin 300 MG 300 MG 300 MG Simvastatin Simvastatin No 1{table QD Simvastati 20 MG 20 MG t_in_ n 20 MG e_eveni ng} Oxybutynin Oxybutynin No Oxybutynin Chloride 5 Chloride 5 Chloride 5 MG MG MG Ibuprofen Ibuprofen No TID Ibuprofen 200 MG 200 MG 200 MG Carbidopa-L Carbidopa-L No 1{table BID Carbidopa- evodopa evodopa t_as_ne Levodopa 25-100 MG 25-100 MG eded} 25-100 MG Biotin Biotin No Biotin Donepezil Donepezil No BID Donepezil HCl 10 MG HCl 10 MG HCl 10 MG Calcium Calcium No Calcium Fluticasone Fluticasone No Fluticason Propionate Propionate e 50 MCG/ACT 50 MCG/ACT Propionate 50 MCG/ACT Super B Super B No Super B Complex/C Complex/C Complex/C Folic Acid Folic Acid No 1{table QD Folic Acid 1 MG 1 MG t} 1 MG DULoxetine DULoxetine No DULoxetine HCl 30 MG HCl 30 MG HCl 30 MG Vitamin D3 Vitamin D3 No Vitamin D3 50,000 50,000 50,000 Restasis Restasis No 1{drop_ BID Restasis 0.05 % 0.05 % into_af 0.05 % fected_ eye} Cymbalta 60 Cymbalta 60 No Cymbalta MG MG 60 MG Melatonin Melatonin No Melatonin ER 10 MG ER 10 MG ER 10 MG Cymbalta 30 Cymbalta 30 No Cymbalta MG MG 30 MG Clotrimazol Clotrimazol No Clotrimazo e 10 MG e 10 MG le 10 MG Tylenol 325 Tylenol 325 No 1{table 6xD Tylenol MG MG t_as_ne 325 MG eded} Diclofenac Diclofenac No Diclofenac Sodium 75 Sodium 75 Sodium 75 MG MG MG Cyanocobala Cyanocobala No 1{ml} Cyanocobal min 1000 min 1000 carcamo 1000 MCG/ML MCG/ML MCG/ML Montelukast Montelukast No Montelukas Sodium 10 Sodium 10 t Sodium MG MG 10 MG Lisinopril Lisinopril No 1{table QD Lisinopril 10 MG 10 MG t} 10 MG hydroCHLORO hydroCHLORO No 1{table QD hydroCHLOR thiazide thiazide t_in_th Othiazide 12.5 MG 12.5 MG e_morni 12.5 MG ng} Turmeric Turmeric No Turmeric Curcumin Curcumin Curcumin Memantine Memantine No Memantine HCl 10 MG HCl 10 MG HCl 10 MG busPIRone busPIRone No busPIRone HCl 5 MG HCl 5 MG HCl 5 MG DULoxetine DULoxetine No DULoxetine HCl 60 MG HCl 60 MG HCl 60 MG Zioptan Zioptan No 1{drop_ QD Zioptan 0.0015 % 0.0015 % into_af 0.0015 % fected_ eye_in_ the_eve mindy} Stiolto Stiolto No 2{puffs QD Stiolto Respimat Respimat } Respimat 2.5mcg/2.5m 2.5mcg/2.5m 2.5mcg/2.5 cg cg mcg Omeprazole Omeprazole No Omeprazole 40 MG 40 MG 40 MG Remicade Remicade No Remicade 100 MG 100 MG 100 MG Toujeo Max Toujeo Max No Toujeo Max SoloStar SoloStar SoloStar 300 UNIT/ML 300 UNIT/ML 300 UNIT/ML Clotrimazol Clotrimazol No Clotrimazo e 10 MG e 10 MG le 10 MG Probiotic Probiotic No Probiotic clonazePAM clonazePAM No 1{table QD clonazePAM 1 MG 1 MG t} 1 MG Lisinopril Lisinopril No 1{table QD Lisinopril 10 MG 10 MG t} 10 MG Simvastatin Simvastatin No Simvastati 20 MG 20 MG n 20 MG NovoFine NovoFine No QD NovoFine 32G X 6 MM 32G X 6 MM 32G X 6 MM Gabapentin Gabapentin No Gabapentin 300 MG 300 MG 300 MG Simvastatin Simvastatin No 1{table QD Simvastati 20 MG 20 MG t_in_th n 20 MG e_eveni ng} Omeprazole Omeprazole No Omeprazole 40 MG 40 MG 40 MG hydroCHLORO hydroCHLORO No 1{table QD hydroCHLOR thiazide thiazide t_in_th Othiazide 12.5 MG 12.5 MG e_morni 12.5 MG ng} Remicade Remicade No Remicade 100 MG 100 MG 100 MG DULoxetine DULoxetine No DULoxetine HCl 60 MG HCl 60 MG HCl 60 MG Carbidopa-L Carbidopa-L No 1{table BID Carbidopa- evodopa evodopa t_as_ne Levodopa 25-100 MG 25-100 MG eded} 25-100 MG busPIRone busPIRone No busPIRone HCl 5 MG HCl 5 MG HCl 5 MG Fluticasone Fluticasone No Fluticason Propionate Propionate e 50 MCG/ACT 50 MCG/ACT Propionate 50 MCG/ACT clonazePAM clonazePAM No 1{table QD clonazePAM 1 MG 1 MG t} 1 MG Restasis Restasis No 1{drop_ BID Restasis 0.05 % 0.05 % into_af 0.05 % fected_ eye} Biotin Biotin No Biotin Simvastatin Simvastatin No 1{table QD Simvastati 20 MG 20 MG t_in_th n 20 MG e_eveni ng} Oxybutynin Oxybutynin No Oxybutynin Chloride 5 Chloride 5 Chloride 5 MG MG MG Turmeric Turmeric No Turmeric Curcumin Curcumin Curcumin Toujeo Max Toujeo Max No Toujeo Max SoloStar SoloStar SoloStar 300 UNIT/ML 300 UNIT/ML 300 UNIT/ML Folic Acid Folic Acid No 1{table QD Folic Acid 1 MG 1 MG t} 1 MG Omeprazole Omeprazole No Omeprazole 40 MG 40 MG 40 MG Restasis Restasis No 1{drop_ BID Restasis 0.05 % 0.05 % into_af 0.05 % fected_ eye} Memantine Memantine No Memantine HCl 10 MG HCl 10 MG HCl 10 MG Zioptan Zioptan No 1{drop_ QD Zioptan 0.0015 % 0.0015 % into_af 0.0015 % fected_ eye_in_ the_eve mindy} Fluticasone Fluticasone No Fluticason Propionate Propionate e 50 MCG/ACT 50 MCG/ACT Propionate 50 MCG/ACT Stiolto Stiolto No 2{puffs QD Stiolto Respimat Respimat } Respimat 2.5mcg/2.5m 2.5mcg/2.5m 2.5mcg/2.5 cg cg mcg DULoxetine DULoxetine No DULoxetine HCl 30 MG HCl 30 MG HCl 30 MG Cyanocobala Cyanocobala No 1{ml} Cyanocobal min 1000 min 1000 carcamo 1000 MCG/ML MCG/ML MCG/ML Calcium Calcium No Calcium Clotrimazol Clotrimazol No Clotrimazo e 10 MG e 10 MG le 10 MG Probiotic Probiotic No Probiotic Simvastatin Simvastatin No Simvastati 20 MG 20 MG n 20 MG Melatonin Melatonin No Melatonin ER 10 MG ER 10 MG ER 10 MG NovoFine NovoFine No QD NovoFine 32G X 6 MM 32G X 6 MM 32G X 6 MM Donepezil Donepezil No BID Donepezil HCl 10 MG HCl 10 MG HCl 10 MG Gabapentin Gabapentin No Gabapentin 300 MG 300 MG 300 MG Lisinopril Lisinopril No 1{table QD Lisinopril 10 MG 10 MG t} 10 MG Melatonin Melatonin No Melatonin ER 10 MG ER 10 MG ER 10 MG Cymbalta 30 Cymbalta 30 No Cymbalta MG MG 30 MG Cymbalta 60 Cymbalta 60 No Cymbalta MG MG 60 MG Tylenol 325 Tylenol 325 No 1{table 6xD Tylenol MG MG t_as_ne 325 MG eded} Ibuprofen Ibuprofen No TID Ibuprofen 200 MG 200 MG 200 MG DULoxetine DULoxetine No DULoxetine HCl 60 MG HCl 60 MG HCl 60 MG Diclofenac Diclofenac No Diclofenac Sodium 75 Sodium 75 Sodium 75 MG MG MG Montelukast Montelukast No Montelukas Sodium 10 Sodium 10 t Sodium MG MG 10 MG Super B Super B No Super B Complex/C Complex/C Complex/C Vitamin D3 Vitamin D3 No Vitamin D3 50,000 50,000 50,000 NovoFine NovoFine No QD NovoFine 32G X 6 MM 32G X 6 MM 32G X 6 MM Remicade Remicade No Remicade 100 MG 100 MG 100 MG hydroCHLORO hydroCHLORO No 1{table QD hydroCHLOR thiazide thiazide t_in_th Othiazide 12.5 MG 12.5 MG e_morni 12.5 MG ng} Probiotic Probiotic No Probiotic busPIRone busPIRone No busPIRone HCl 5 MG HCl 5 MG HCl 5 MG Simvastatin Simvastatin No 1{table QD Simvastati 20 MG 20 MG t_in_th n 20 MG e_eveni ng} Folic Acid Folic Acid No 1{table QD Folic Acid 1 MG 1 MG t} 1 MG Omeprazole Omeprazole No Omeprazole 40 MG 40 MG 40 MG Memantine Memantine No Memantine HCl 10 MG HCl 10 MG HCl 10 MG Lisinopril Lisinopril No 1{table QD Lisinopril 10 MG 10 MG t} 10 MG Diclofenac Diclofenac No Diclofenac Sodium 75 Sodium 75 Sodium 75 MG MG MG Remicade Remicade No Remicade 100 MG 100 MG 100 MG Cyanocobala Cyanocobala No 1{ml} Cyanocobal min 1000 min 1000 carcamo 1000 MCG/ML MCG/ML MCG/ML Zioptan Zioptan No 1{drop_ QD Zioptan 0.0015 % 0.0015 % into_af 0.0015 % fected_ eye_in_ the_eve mindy} Simvastatin Simvastatin No Simvastati 20 MG 20 MG n 20 MG Stiolto Stiolto No 2{puffs QD Stiolto Respimat Respimat } Respimat 2.5mcg/2.5m 2.5mcg/2.5m 2.5mcg/2.5 cg cg mcg clonazePAM clonazePAM No 1{table QD clonazePAM 1 MG 1 MG t} 1 MG Biotin Biotin No Biotin Melatonin Melatonin No Melatonin ER 10 MG ER 10 MG ER 10 MG Turmeric Turmeric No Turmeric Curcumin Curcumin Curcumin Diclofenac Diclofenac No Diclofenac Sodium 75 Sodium 75 Sodium 75 MG MG MG clonazePAM clonazePAM No 1{table QD clonazePAM 1 MG 1 MG t} 1 MG Vitamin D3 Vitamin D3 No Vitamin D3 50,000 50,000 50,000 Donepezil Donepezil No BID Donepezil HCl 10 MG HCl 10 MG HCl 10 MG Carbidopa-L Carbidopa-L No 1{table BID Carbidopa- evodopa evodopa t_as_ne Levodopa 25-100 MG 25-100 MG eded} 25-100 MG Restasis Restasis No 1{drop_ BID Restasis 0.05 % 0.05 % into_af 0.05 % fected_ eye} Tylenol 325 Tylenol 325 No 1{table 6xD Tylenol MG MG t_as_ne 325 MG eded} Fluticasone Fluticasone No Fluticason Propionate Propionate e 50 MCG/ACT 50 MCG/ACT Propionate 50 MCG/ACT NovoFine NovoFine No QD NovoFine 32G X 6 MM 32G X 6 MM 32G X 6 MM Clotrimazol Clotrimazol No Clotrimazo e 10 MG e 10 MG le 10 MG Gabapentin Gabapentin No Gabapentin 300 MG 300 MG 300 MG Calcium Calcium No Calcium Zioptan Zioptan No 1{drop_ QD Zioptan 0.0015 % 0.0015 % into_af 0.0015 % fected_ eye_in_ the_eve mindy} Super B Super B No Super B Complex/C Complex/C Complex/C Toujeo Max Toujeo Max No Toujeo Max SoloStar SoloStar SoloStar 300 UNIT/ML 300 UNIT/ML 300 UNIT/ML Montelukast Montelukast No Montelukas Sodium 10 Sodium 10 t Sodium MG MG 10 MG Ibuprofen Ibuprofen No TID Ibuprofen 200 MG 200 MG 200 MG DULoxetine DULoxetine No DULoxetine HCl 60 MG HCl 60 MG HCl 60 MG DULoxetine DULoxetine No DULoxetine HCl 30 MG HCl 30 MG HCl 30 MG Calcium Calcium No Calcium hydroCHLORO hydroCHLORO No 1{table QD hydroCHLOR thiazide thiazide t_in_th Othiazide 12.5 MG 12.5 MG e_morni 12.5 MG ng} Probiotic Probiotic No Probiotic busPIRone busPIRone No busPIRone HCl 5 MG HCl 5 MG HCl 5 MG Simvastatin Simvastatin No 1{table QD Simvastati 20 MG 20 MG t_in_th n 20 MG e_eveni ng} Folic Acid Folic Acid No 1{table QD Folic Acid 1 MG 1 MG t} 1 MG Omeprazole Omeprazole No Omeprazole 40 MG 40 MG 40 MG Memantine Memantine No Memantine HCl 10 MG HCl 10 MG HCl 10 MG Lisinopril Lisinopril No 1{table QD Lisinopril 10 MG 10 MG t} 10 MG Remicade Remicade No Remicade 100 MG 100 MG 100 MG Cyanocobala Cyanocobala No 1{ml} Cyanocobal min 1000 min 1000 carcamo 1000 MCG/ML MCG/ML MCG/ML DULoxetine DULoxetine No DULoxetine HCl 30 MG HCl 30 MG HCl 30 MG Zioptan Zioptan No 1{drop_ QD Zioptan 0.0015 % 0.0015 % into_af 0.0015 % fected_ eye_in_ the_eve mindy} Simvastatin Simvastatin No Simvastati 20 MG 20 MG n 20 MG Stiolto Stiolto No 2{puffs QD Stiolto Respimat Respimat } Respimat 2.5mcg/2.5m 2.5mcg/2.5m 2.5mcg/2.5 cg cg mcg clonazePAM clonazePAM No 1{table QD clonazePAM 1 MG 1 MG t} 1 MG Biotin Biotin No Biotin Melatonin Melatonin No Melatonin ER 10 MG ER 10 MG ER 10 MG Turmeric Turmeric No Turmeric Curcumin Curcumin Curcumin Diclofenac Diclofenac No Diclofenac Sodium 75 Sodium 75 Sodium 75 MG MG MG Montelukast Montelukast No Montelukas Sodium 10 Sodium 10 t Sodium MG MG 10 MG Calcium Calcium No Calcium Donepezil Donepezil No BID Donepezil HCl 10 MG HCl 10 MG HCl 10 MG Carbidopa-L Carbidopa-L No 1{table BID Carbidopa- evodopa evodopa t_as_ne Levodopa 25-100 MG 25-100 MG eded} 25-100 MG Restasis Restasis No 1{drop_ BID Restasis 0.05 % 0.05 % into_af 0.05 % fected_ eye} Super B Super B No Super B Complex/C Complex/C Complex/C Fluticasone Fluticasone No Fluticason Propionate Propionate e 50 MCG/ACT 50 MCG/ACT Propionate 50 MCG/ACT NovoFine NovoFine No QD NovoFine 32G X 6 MM 32G X 6 MM 32G X 6 MM Clotrimazol Clotrimazol No Clotrimazo e 10 MG e 10 MG le 10 MG Gabapentin Gabapentin No Gabapentin 300 MG 300 MG 300 MG Tylenol 325 Tylenol 325 No 1{table 6xD Tylenol MG MG t_as_ne 325 MG eded} Vitamin D3 Vitamin D3 No Vitamin D3 50,000 50,000 50,000 Montelukast Montelukast No Montelukas Sodium 10 Sodium 10 t Sodium MG MG 10 MG Donepezil Donepezil No BID Donepezil HCl 10 MG HCl 10 MG HCl 10 MG Ibuprofen Ibuprofen No TID Ibuprofen 200 MG 200 MG 200 MG Toujeo Max Toujeo Max No Toujeo Max SoloStar SoloStar SoloStar 300 UNIT/ML 300 UNIT/ML 300 UNIT/ML DULoxetine DULoxetine No DULoxetine HCl 60 MG HCl 60 MG HCl 60 MG DULoxetine DULoxetine No DULoxetine HCl 30 MG HCl 30 MG HCl 30 MG Stiolto Stiolto No 2{puffs QD Stiolto Respimat Respimat } Respimat 2.5mcg/2.5m 2.5mcg/2.5m 2.5mcg/2.5 cg cg mcg Diclofenac Diclofenac No Diclofenac Sodium 75 Sodium 75 Sodium 75 MG MG MG Clotrimazol Clotrimazol No Clotrimazo e 10 MG e 10 MG le 10 MG Omeprazole Omeprazole No Omeprazole 40 MG 40 MG 40 MG Lisinopril Lisinopril No 1{table QD Lisinopril 10 MG 10 MG t} 10 MG Restasis Restasis No 1{drop_ BID Restasis 0.05 % 0.05 % into_af 0.05 % fected_ eye} Melatonin Melatonin No Melatonin ER 10 MG ER 10 MG ER 10 MG DULoxetine DULoxetine No DULoxetine HCl 30 MG HCl 30 MG HCl 30 MG NovoFine NovoFine No QD NovoFine 32G X 6 MM 32G X 6 MM 32G X 6 MM Remicade Remicade No Remicade 100 MG 100 MG 100 MG DULoxetine DULoxetine No DULoxetine HCl 60 MG HCl 60 MG HCl 60 MG Gabapentin Gabapentin No Gabapentin 300 MG 300 MG 300 MG clonazePAM clonazePAM No 1{table QD clonazePAM 1 MG 1 MG t} 1 MG Zioptan Zioptan No 1{drop_ QD Zioptan 0.0015 % 0.0015 % into_af 0.0015 % fected_ eye_in_ the_eve mindy} Calcium Calcium No Calcium Turmeric Turmeric No Turmeric Curcumin Curcumin Curcumin Donepezil Donepezil No BID Donepezil HCl 10 MG HCl 10 MG HCl 10 MG Montelukast Montelukast No Montelukas Sodium 10 Sodium 10 t Sodium MG MG 10 MG Stiolto Stiolto No 2{puffs QD Stiolto Respimat Respimat } Respimat 2.5mcg/2.5m 2.5mcg/2.5m 2.5mcg/2.5 cg cg mcg hydroCHLORO hydroCHLORO No 1{table QD hydroCHLOR thiazide thiazide t_in_th Othiazide 12.5 MG 12.5 MG e_morni 12.5 MG ng} Cyanocobala Cyanocobala No 1{ml} Cyanocobal min 1000 min 1000 carcamo 1000 MCG/ML MCG/ML MCG/ML Gabapentin Gabapentin No Gabapentin 300 MG 300 MG 300 MG Cephalexin Cephalexin No 1{capsu QID Cephalexin 500 MG 500 MG le} 500 MG Simvastatin Simvastatin No Simvastati 20 MG 20 MG n 20 MG busPIRone busPIRone No busPIRone HCl 5 MG HCl 5 MG HCl 5 MG Simvastatin Simvastatin No 1{table QD Simvastati 20 MG 20 MG t_in_th n 20 MG e_eveni ng} Ibuprofen Ibuprofen No TID Ibuprofen 200 MG 200 MG 200 MG Biotin Biotin No Biotin Folic Acid Folic Acid No 1{table QD Folic Acid 1 MG 1 MG t} 1 MG Probiotic Probiotic No Probiotic Toujeo Max Toujeo Max No Toujeo Max SoloStar SoloStar SoloStar 300 UNIT/ML 300 UNIT/ML 300 UNIT/ML Memantine Memantine No Memantine HCl 10 MG HCl 10 MG HCl 10 MG Fluticasone Fluticasone No Fluticason Propionate Propionate e 50 MCG/ACT 50 MCG/ACT Propionate 50 MCG/ACT Cyanocobala Cyanocobala No 1{ml} Cyanocobal min 1000 min 1000 carcamo 1000 MCG/ML MCG/ML MCG/ML Memantine Memantine No Memantine HCl 10 MG HCl 10 MG HCl 10 MG Vitamin D3 Vitamin D3 No Vitamin D3 50,000 50,000 50,000 Carbidopa-L Carbidopa-L No 1{table BID Carbidopa- evodopa evodopa t_as_ne Levodopa 25-100 MG 25-100 MG eded} 25-100 MG Tylenol 325 Tylenol 325 No 1{table 6xD Tylenol MG MG t_as_ne 325 MG eded} Super B Super B No Super B Complex/C Complex/C Complex/C Ibuprofen Ibuprofen No TID Ibuprofen 200 MG 200 MG 200 MG Lisinopril Lisinopril No 1{table QD Lisinopril 10 MG 10 MG t} 10 MG Biotin Biotin No Biotin Clotrimazol Clotrimazol No Clotrimazo e 10 MG e 10 MG le 10 MG Omeprazole Omeprazole No Omeprazole 40 MG 40 MG 40 MG Fluticasone Fluticasone No Fluticason Propionate Propionate e 50 MCG/ACT 50 MCG/ACT Propionate 50 MCG/ACT Restasis Restasis No 1{drop_ BID Restasis 0.05 % 0.05 % into_af 0.05 % fected_ eye} Melatonin Melatonin No Melatonin ER 10 MG ER 10 MG ER 10 MG DULoxetine DULoxetine No DULoxetine HCl 60 MG HCl 60 MG HCl 60 MG NovoFine NovoFine No QD NovoFine 32G X 6 MM 32G X 6 MM 32G X 6 MM Remicade Remicade No Remicade 100 MG 100 MG 100 MG Diclofenac Diclofenac No Diclofenac Sodium 75 Sodium 75 Sodium 75 MG MG MG clonazePAM clonazePAM No 1{table QD clonazePAM 1 MG 1 MG t} 1 MG Toujeo Max Toujeo Max No Toujeo Max SoloStar SoloStar SoloStar 300 UNIT/ML 300 UNIT/ML 300 UNIT/ML Zioptan Zioptan No 1{drop_ QD Zioptan 0.0015 % 0.0015 % into_af 0.0015 % fected_ eye_in_ the_eve mindy} Calcium Calcium No Calcium DULoxetine DULoxetine No DULoxetine HCl 30 MG HCl 30 MG HCl 30 MG Donepezil Donepezil No BID Donepezil HCl 10 MG HCl 10 MG HCl 10 MG Montelukast Montelukast No Montelukas Sodium 10 Sodium 10 t Sodium MG MG 10 MG Stiolto Stiolto No 2{puffs QD Stiolto Respimat Respimat } Respimat 2.5mcg/2.5m 2.5mcg/2.5m 2.5mcg/2.5 cg cg mcg Gabapentin Gabapentin No Gabapentin 300 MG 300 MG 300 MG Cyanocobala Cyanocobala No 1{ml} Cyanocobal min 1000 min 1000 carcamo 1000 MCG/ML MCG/ML MCG/ML hydroCHLORO hydroCHLORO No 1{table QD hydroCHLOR thiazide thiazide t_in_th Othiazide 12.5 MG 12.5 MG e_morni 12.5 MG ng} Memantine Memantine No Memantine HCl 10 MG HCl 10 MG HCl 10 MG Ibuprofen Ibuprofen No TID Ibuprofen 200 MG 200 MG 200 MG Biotin Biotin No Biotin Toujeo Max Toujeo Max No Toujeo Max SoloStar SoloStar SoloStar 300 UNIT/ML 300 UNIT/ML 300 UNIT/ML hydroCHLORO hydroCHLORO No 1{table QD hydroCHLOR thiazide thiazide t_in_th Othiazide 12.5 MG 12.5 MG e_morni 12.5 MG ng} Turmeric Turmeric No Turmeric Curcumin Curcumin Curcumin Folic Acid Folic Acid No 1{table QD Folic Acid 1 MG 1 MG t} 1 MG Probiotic Probiotic No Probiotic Cephalexin Cephalexin No 1{capsu QID Cephalexin 500 MG 500 MG le} 500 MG Simvastatin Simvastatin No Simvastati 20 MG 20 MG n 20 MG Turmeric Turmeric No Turmeric Curcumin Curcumin Curcumin Simvastatin Simvastatin No 1{table QD Simvastati 20 MG 20 MG t_in_th n 20 MG e_eveni ng} Carbidopa-L Carbidopa-L No 1{table BID Carbidopa- evodopa evodopa t_as_ne Levodopa 25-100 MG 25-100 MG eded} 25-100 MG Tylenol 325 Tylenol 325 No 1{table 6xD Tylenol MG MG t_as_ne 325 MG eded} Vitamin D3 Vitamin D3 No Vitamin D3 50,000 50,000 50,000 Super B Super B No Super B Complex/C Complex/C Complex/C busPIRone busPIRone No busPIRone HCl 5 MG HCl 5 MG HCl 5 MG Folic Acid Folic Acid No 1{table QD Folic Acid 1 MG 1 MG t} 1 MG Lisinopril Lisinopril No 1{table QD Lisinopril 10 MG 10 MG t} 10 MG Clotrimazol Clotrimazol No Clotrimazo e 10 MG e 10 MG le 10 MG Omeprazole Omeprazole No Omeprazole 40 MG 40 MG 40 MG Fluticasone Fluticasone No Fluticason Propionate Propionate e 50 MCG/ACT 50 MCG/ACT Propionate 50 MCG/ACT Restasis Restasis No 1{drop_ BID Restasis 0.05 % 0.05 % into_af 0.05 % fected_ eye} Melatonin Melatonin No Melatonin ER 10 MG ER 10 MG ER 10 MG DULoxetine DULoxetine No DULoxetine HCl 60 MG HCl 60 MG HCl 60 MG NovoFine NovoFine No QD NovoFine 32G X 6 MM 32G X 6 MM 32G X 6 MM Remicade Remicade No Remicade 100 MG 100 MG 100 MG Diclofenac Diclofenac No Diclofenac Sodium 75 Sodium 75 Sodium 75 MG MG MG Probiotic Probiotic No Probiotic clonazePAM clonazePAM No 1{table QD clonazePAM 1 MG 1 MG t} 1 MG Zioptan Zioptan No 1{drop_ QD Zioptan 0.0015 % 0.0015 % into_af 0.0015 % fected_ eye_in_ the_eve mindy} Calcium Calcium No Calcium DULoxetine DULoxetine No DULoxetine HCl 30 MG HCl 30 MG HCl 30 MG Donepezil Donepezil No BID Donepezil HCl 10 MG HCl 10 MG HCl 10 MG Montelukast Montelukast No Montelukas Sodium 10 Sodium 10 t Sodium MG MG 10 MG Stiolto Stiolto No 2{puffs QD Stiolto Respimat Respimat } Respimat 2.5mcg/2.5m 2.5mcg/2.5m 2.5mcg/2.5 cg cg mcg Gabapentin Gabapentin No Gabapentin 300 MG 300 MG 300 MG Cephalexin Cephalexin No 1{capsu QID Cephalexin 500 MG 500 MG le} 500 MG Cyanocobala Cyanocobala No 1{ml} Cyanocobal min 1000 min 1000 carcamo 1000 MCG/ML MCG/ML MCG/ML Memantine Memantine No Memantine HCl 10 MG HCl 10 MG HCl 10 MG Ibuprofen Ibuprofen No TID Ibuprofen 200 MG 200 MG 200 MG Biotin Biotin No Biotin Toujeo Max Toujeo Max No Toujeo Max SoloStar SoloStar SoloStar 300 UNIT/ML 300 UNIT/ML 300 UNIT/ML hydroCHLORO hydroCHLORO No 1{table QD hydroCHLOR thiazide thiazide t_in_ Othiazide 12.5 MG 12.5 MG e_morni 12.5 MG ng} Turmeric Turmeric No Turmeric Curcumin Curcumin Curcumin Folic Acid Folic Acid No 1{table QD Folic Acid 1 MG 1 MG t} 1 MG Probiotic Probiotic No Probiotic Cephalexin Cephalexin No 1{capsu QID Cephalexin 500 MG 500 MG le} 500 MG Simvastatin Simvastatin No Simvastati 20 MG 20 MG n 20 MG Simvastatin Simvastatin No Simvastati 20 MG 20 MG n 20 MG Simvastatin Simvastatin No 1{table QD Simvastati 20 MG 20 MG t_in_ n 20 MG e_eveni ng} Carbidopa-L Carbidopa-L No 1{table BID Carbidopa- evodopa evodopa t_as_ne Levodopa 25-100 MG 25-100 MG eded} 25-100 MG Tylenol 325 Tylenol 325 No 1{table 6xD Tylenol MG MG t_as_ne 325 MG eded} Vitamin D3 Vitamin D3 No Vitamin D3 50,000 50,000 50,000 Super B Super B No Super B Complex/C Complex/C Complex/C busPIRone busPIRone No busPIRone HCl 5 MG HCl 5 MG HCl 5 MG Simvastatin Simvastatin No 1{table QD Simvastati 20 MG 20 MG t_in_th n 20 MG e_eveni ng} Fluticasone Fluticasone No Fluticason Propionate Propionate e 50 MCG/ACT 50 MCG/ACT Propionate 50 MCG/ACT Restasis Restasis No 1{drop_ BID Restasis 0.05 % 0.05 % into_af 0.05 % fected_ eye} Melatonin Melatonin No Melatonin ER 10 MG ER 10 MG ER 10 MG Simvastatin Simvastatin No Simvastati 20 MG 20 MG n 20 MG Folic Acid Folic Acid No 1{table QD Folic Acid 1 MG 1 MG t} 1 MG Probiotic Probiotic No Probiotic Diclofenac Diclofenac No Diclofenac Sodium 75 Sodium 75 Sodium 75 MG MG MG clonazePAM clonazePAM No 1{table QD clonazePAM 1 MG 1 MG t} 1 MG Zioptan Zioptan No 1{drop_ QD Zioptan 0.0015 % 0.0015 % into_af 0.0015 % fected_ eye_in_ the_eve mindy} Carbidopa-L Carbidopa-L No 1{table BID Carbidopa- evodopa evodopa t_as_ne Levodopa 25-100 MG 25-100 MG eded} 25-100 MG Lisinopril Lisinopril No 1{table QD Lisinopril 10 MG 10 MG t} 10 MG Clotrimazol Clotrimazol No Clotrimazo e 10 MG e 10 MG le 10 MG Omeprazole Omeprazole No Omeprazole 40 MG 40 MG 40 MG Donepezil Donepezil No BID Donepezil HCl 10 MG HCl 10 MG HCl 10 MG Montelukast Montelukast No Montelukas Sodium 10 Sodium 10 t Sodium MG MG 10 MG DULoxetine DULoxetine No DULoxetine HCl 60 MG HCl 60 MG HCl 60 MG NovoFine NovoFine No QD NovoFine 32G X 6 MM 32G X 6 MM 32G X 6 MM Remicade Remicade No Remicade 100 MG 100 MG 100 MG Stiolto Stiolto No 2{puffs QD Stiolto Respimat Respimat } Respimat 2.5mcg/2.5m 2.5mcg/2.5m 2.5mcg/2.5 cg cg mcg Calcium Calcium No Calcium Tylenol 325 Tylenol 325 No 1{table 6xD Tylenol MG MG t_as_ne 325 MG eded} Cyanocobala Cyanocobala No 1{ml} Cyanocobal min 1000 min 1000 carcamo 1000 MCG/ML MCG/ML MCG/ML Simvastatin Simvastatin No 1{table QD Simvastati 20 MG 20 MG t_in_th n 20 MG e_eveni ng} Carbidopa-L Carbidopa-L No 1{table BID Carbidopa- evodopa evodopa t_as_ne Levodopa 25-100 MG 25-100 MG eded} 25-100 MG hydroCHLORO hydroCHLORO No 1{table QD hydroCHLOR thiazide thiazide t_in_th Othiazide 12.5 MG 12.5 MG e_morni 12.5 MG ng} Turmeric Turmeric No Turmeric Curcumin Curcumin Curcumin Cephalexin Cephalexin No 1{capsu QID Cephalexin 500 MG 500 MG le} 500 MG Gabapentin Gabapentin No Gabapentin 300 MG 300 MG 300 MG DULoxetine DULoxetine No DULoxetine HCl 30 MG HCl 30 MG HCl 30 MG Biotin Biotin No Biotin Vitamin D3 Vitamin D3 No Vitamin D3 50,000 50,000 50,000 Memantine Memantine No Memantine HCl 10 MG HCl 10 MG HCl 10 MG Ibuprofen Ibuprofen No TID Ibuprofen 200 MG 200 MG 200 MG Toujeo Max Toujeo Max No Toujeo Max SoloStar SoloStar SoloStar 300 UNIT/ML 300 UNIT/ML 300 UNIT/ML Vitamin D3 Vitamin D3 No Vitamin D3 50,000 50,000 50,000 Super B Super B No Super B Complex/C Complex/C Complex/C Tylenol 325 Tylenol 325 No 1{table 6xD Tylenol MG MG t_as_ne 325 MG eded} busPIRone busPIRone No busPIRone HCl 5 MG HCl 5 MG HCl 5 MG Super B Super B No Super B Complex/C Complex/C Complex/C Simvastatin Simvastatin No Simvastati 20 MG 20 MG n 20 MG Folic Acid Folic Acid No 1{table QD Folic Acid 1 MG 1 MG t} 1 MG Probiotic Probiotic No Probiotic Stiolto Stiolto No 2{puffs QD Stiolto Respimat Respimat } Respimat 2.5mcg/2.5m 2.5mcg/2.5m 2.5mcg/2.5 cg cg mcg Ibuprofen Ibuprofen No TID Ibuprofen 200 MG 200 MG 200 MG busPIRone busPIRone No busPIRone HCl 5 MG HCl 5 MG HCl 5 MG Metoprolol Metoprolol No 1{table QD Metoprolol Succinate Succinate t} Succinate ER 25 MG ER 25 MG ER 25 MG Clotrimazol Clotrimazol No Clotrimazo e 10 MG e 10 MG le 10 MG Omeprazole Omeprazole No Omeprazole 40 MG 40 MG 40 MG Fluticasone Fluticasone No Fluticason Propionate Propionate e 50 MCG/ACT 50 MCG/ACT Propionate 50 MCG/ACT Restasis Restasis No 1{drop_ BID Restasis 0.05 % 0.05 % into_af 0.05 % fected_ eye} Melatonin Melatonin No Melatonin ER 10 MG ER 10 MG ER 10 MG NovoFine NovoFine No QD NovoFine 32G X 6 MM 32G X 6 MM 32G X 6 MM Zioptan Zioptan No 1{drop_ QD Zioptan 0.0015 % 0.0015 % into_af 0.0015 % fected_ eye_in_ the_eve mindy} Diclofenac Diclofenac No Diclofenac Sodium 75 Sodium 75 Sodium 75 MG MG MG clonazePAM clonazePAM No 1{table QD clonazePAM 1 MG 1 MG t} 1 MG DULoxetine DULoxetine No QD DULoxetine HCl 30 MG HCl 30 MG HCl 30 MG Montelukast Montelukast No Montelukas Sodium 10 Sodium 10 t Sodium MG MG 10 MG Donepezil Donepezil No BID Donepezil HCl 10 MG HCl 10 MG HCl 10 MG Remicade Remicade No Remicade 100 MG 100 MG 100 MG Simvastatin Simvastatin No 1{table QD Simvastati 20 MG 20 MG t_in_th n 20 MG e_eveni ng} Toujeo Max Toujeo Max No Toujeo Max SoloStar SoloStar SoloStar 300 UNIT/ML 300 UNIT/ML 300 UNIT/ML Vitamin D3 Vitamin D3 No Vitamin D3 50,000 50,000 50,000 Cyanocobala Cyanocobala No 1{ml} Cyanocobal min 1000 min 1000 carcamo 1000 MCG/ML MCG/ML MCG/ML Turmeric Turmeric No Turmeric Curcumin Curcumin Curcumin Memantine Memantine No Memantine HCl 10 MG HCl 10 MG HCl 10 MG DULoxetine DULoxetine No QD DULoxetine HCl 60 MG HCl 60 MG HCl 60 MG Gabapentin Gabapentin No Gabapentin 300 MG 300 MG 300 MG Biotin Biotin No Biotin Calcium Calcium No Calcium Carbidopa-L Carbidopa-L No 1{table BID Carbidopa- evodopa evodopa t_as_ne Levodopa 25-100 MG 25-100 MG eded} 25-100 MG hydroCHLORO hydroCHLORO No 1{table QD hydroCHLOR thiazide thiazide t_in_th Othiazide 12.5 MG 12.5 MG e_morni 12.5 MG ng} Cephalexin Cephalexin No 1{capsu QID Cephalexin 500 MG 500 MG le} 500 MG Tylenol 325 Tylenol 325 No 1{table 6xD Tylenol MG MG t_as_ne 325 MG eded} Super B Super B No Super B Complex/C Complex/C Complex/C busPIRone busPIRone No busPIRone HCl 5 MG HCl 5 MG HCl 5 MG Simvastatin Simvastatin No Simvastati 20 MG 20 MG n 20 MG Folic Acid Folic Acid No 1{table QD Folic Acid 1 MG 1 MG t} 1 MG Probiotic Probiotic No Probiotic Stiolto Stiolto No 2{puffs QD Stiolto Respimat Respimat } Respimat 2.5mcg/2.5m 2.5mcg/2.5m 2.5mcg/2.5 cg cg mcg Ibuprofen Ibuprofen No TID Ibuprofen 200 MG 200 MG 200 MG Metoprolol Metoprolol No 1{table QD Metoprolol Succinate Succinate t} Succinate ER 25 MG ER 25 MG ER 25 MG Clotrimazol Clotrimazol No Clotrimazo e 10 MG e 10 MG le 10 MG Omeprazole Omeprazole No Omeprazole 40 MG 40 MG 40 MG Fluticasone Fluticasone No Fluticason Propionate Propionate e 50 MCG/ACT 50 MCG/ACT Propionate 50 MCG/ACT Restasis Restasis No 1{drop_ BID Restasis 0.05 % 0.05 % into_af 0.05 % fected_ eye} Melatonin Melatonin No Melatonin ER 10 MG ER 10 MG ER 10 MG NovoFine NovoFine No QD NovoFine 32G X 6 MM 32G X 6 MM 32G X 6 MM Zioptan Zioptan No 1{drop_ QD Zioptan 0.0015 % 0.0015 % into_af 0.0015 % fected_ eye_in_ the_eve mindy} Diclofenac Diclofenac No Diclofenac Sodium 75 Sodium 75 Sodium 75 MG MG MG clonazePAM clonazePAM No 1{table QD clonazePAM 1 MG 1 MG t} 1 MG DULoxetine DULoxetine No QD DULoxetine HCl 30 MG HCl 30 MG HCl 30 MG Montelukast Montelukast No Montelukas Sodium 10 Sodium 10 t Sodium MG MG 10 MG Donepezil Donepezil No BID Donepezil HCl 10 MG HCl 10 MG HCl 10 MG Remicade Remicade No Remicade 100 MG 100 MG 100 MG Simvastatin Simvastatin No 1{table QD Simvastati 20 MG 20 MG t_in_ n 20 MG e_eveni ng} Toujeo Max Toujeo Max No Toujeo Max SoloStar SoloStar SoloStar 300 UNIT/ML 300 UNIT/ML 300 UNIT/ML Vitamin D3 Vitamin D3 No Vitamin D3 50,000 50,000 50,000 Cyanocobala Cyanocobala No 1{ml} Cyanocobal min 1000 min 1000 carcamo 1000 MCG/ML MCG/ML MCG/ML Turmeric Turmeric No Turmeric Curcumin Curcumin Curcumin Memantine Memantine No Memantine HCl 10 MG HCl 10 MG HCl 10 MG DULoxetine DULoxetine No QD DULoxetine HCl 60 MG HCl 60 MG HCl 60 MG Gabapentin Gabapentin No Gabapentin 300 MG 300 MG 300 MG Lisinopril Lisinopril No 1{table QD Lisinopril 10 MG 10 MG t} 10 MG Biotin Biotin No Biotin Calcium Calcium No Calcium Carbidopa-L Carbidopa-L No 1{table BID Carbidopa- evodopa evodopa t_as_ne Levodopa 25-100 MG 25-100 MG eded} 25-100 MG hydroCHLORO hydroCHLORO No 1{table QD hydroCHLOR thiazide thiazide t_in Othiazide 12.5 MG 12.5 MG e_morni 12.5 MG ng} Cephalexin Cephalexin No 1{capsu QID Cephalexin 500 MG 500 MG le} 500 MG Tylenol 325 Tylenol 325 No 1{table 6xD Tylenol MG MG t_as_ne 325 MG eded} Super B Super B No Super B Complex/C Complex/C Complex/C Clotrimazol Clotrimazol No Clotrimazo e 10 MG e 10 MG le 10 MG busPIRone busPIRone No busPIRone HCl 5 MG HCl 5 MG HCl 5 MG Omeprazole Omeprazole No Omeprazole 40 MG 40 MG 40 MG Simvastatin Simvastatin No Simvastati 20 MG 20 MG n 20 MG Fluticasone Fluticasone No Fluticason Propionate Propionate e 50 MCG/ACT 50 MCG/ACT Propionate 50 MCG/ACT Probiotic Probiotic No Probiotic Stiolto Stiolto No 2{puffs QD Stiolto Respimat Respimat } Respimat 2.5mcg/2.5m 2.5mcg/2.5m 2.5mcg/2.5 cg cg mcg Ibuprofen Ibuprofen No TID Ibuprofen 200 MG 200 MG 200 MG Biotin Biotin No Biotin Calcium Calcium No Calcium Metoprolol Metoprolol No 1{table QD Metoprolol Succinate Succinate t} Succinate ER 25 MG ER 25 MG ER 25 MG Restasis Restasis No 1{drop_ BID Restasis 0.05 % 0.05 % into_af 0.05 % fected_ eye} Omeprazole Omeprazole No Omeprazole 40 MG 40 MG 40 MG Fluticasone Fluticasone No Fluticason Propionate Propionate e 50 MCG/ACT 50 MCG/ACT Propionate 50 MCG/ACT Folic Acid Folic Acid No 1{table QD Folic Acid 1 MG 1 MG t} 1 MG Restasis Restasis No 1{drop_ BID Restasis 0.05 % 0.05 % into_af 0.05 % fected_ eye} Melatonin Melatonin No Melatonin ER 10 MG ER 10 MG ER 10 MG clonazePAM clonazePAM No 1{table QD clonazePAM 1 MG 1 MG t} 1 MG Zioptan Zioptan No 1{drop_ QD Zioptan 0.0015 % 0.0015 % into_af 0.0015 % fected_ eye_in_ the_eve mindy} Diclofenac Diclofenac No Diclofenac Sodium 75 Sodium 75 Sodium 75 MG MG MG Clotrimazol Clotrimazol No Clotrimazo e 10 MG e 10 MG le 10 MG DULoxetine DULoxetine No QD DULoxetine HCl 30 MG HCl 30 MG HCl 30 MG Montelukast Montelukast No Montelukas Sodium 10 Sodium 10 t Sodium MG MG 10 MG NovoFine NovoFine No QD NovoFine 32G X 6 MM 32G X 6 MM 32G X 6 MM Remicade Remicade No Remicade 100 MG 100 MG 100 MG Simvastatin Simvastatin No 1{table QD Simvastati 20 MG 20 MG t_in_th n 20 MG e_eveni ng} Melatonin Melatonin No Melatonin ER 10 MG ER 10 MG ER 10 MG Toujeo Max Toujeo Max No Toujeo Max SoloStar SoloStar SoloStar 300 UNIT/ML 300 UNIT/ML 300 UNIT/ML Memantine Memantine No Memantine HCl 10 MG HCl 10 MG HCl 10 MG Cyanocobala Cyanocobala No 1{ml} Cyanocobal min 1000 min 1000 carcamo 1000 MCG/ML MCG/ML MCG/ML Turmeric Turmeric No Turmeric Curcumin Curcumin Curcumin Carbidopa-L Carbidopa-L No 1{table BID Carbidopa- evodopa evodopa t_as_ne Levodopa 25-100 MG 25-100 MG eded} 25-100 MG DULoxetine DULoxetine No QD DULoxetine HCl 60 MG HCl 60 MG HCl 60 MG Gabapentin Gabapentin No Gabapentin 300 MG 300 MG 300 MG Ibandronate Ibandronate No Ibandronat Sodium 150 Sodium 150 e Sodium MG MG 150 MG Donepezil Donepezil No BID Donepezil HCl 10 MG HCl 10 MG HCl 10 MG Vitamin D3 Vitamin D3 No Vitamin D3 50,000 50,000 50,000 DULoxetine DULoxetine No DULoxetine HCl 60 MG HCl 60 MG HCl 60 MG hydroCHLORO hydroCHLORO No 1{table QD hydroCHLOR thiazide thiazide t_in_th Othiazide 12.5 MG 12.5 MG e_morni 12.5 MG ng} Cephalexin Cephalexin No 1{capsu QID Cephalexin 500 MG 500 MG le} 500 MG Tylenol 325 Tylenol 325 No 1{table 6xD Tylenol MG MG t_as_ne 325 MG eded} Super B Super B No Super B Complex/C Complex/C Complex/C busPIRone busPIRone No busPIRone HCl 5 MG HCl 5 MG HCl 5 MG NovoFine NovoFine No QD NovoFine 32G X 6 MM 32G X 6 MM 32G X 6 MM Probiotic Probiotic No Probiotic DULoxetine DULoxetine No QD DULoxetine HCl 60 MG HCl 60 MG HCl 60 MG Simvastatin Simvastatin No 1{table QD Simvastati 20 MG 20 MG t_in_th n 20 MG e_eveni ng} Gabapentin Gabapentin No Gabapentin 300 MG 300 MG 300 MG Biotin Biotin No Biotin Remicade Remicade No Remicade 100 MG 100 MG 100 MG clonazePAM clonazePAM No 1{table QD clonazePAM 1 MG 1 MG t} 1 MG hydroCHLORO hydroCHLORO No 1{table QD hydroCHLOR thiazide thiazide t_in_th Othiazide 12.5 MG 12.5 MG e_morni 12.5 MG ng} Clotrimazol Clotrimazol No Clotrimazo e 10 MG e 10 MG le 10 MG DULoxetine DULoxetine No QD DULoxetine HCl 30 MG HCl 30 MG HCl 30 MG Super B Super B No Super B Complex/C Complex/C Complex/C Cyanocobala Cyanocobala No 1{ml} Cyanocobal min 1000 min 1000 carcamo 1000 MCG/ML MCG/ML MCG/ML Remicade Remicade No Remicade 100 MG 100 MG 100 MG Calcium Calcium No Calcium Melatonin Melatonin No Melatonin ER 10 MG ER 10 MG ER 10 MG Diclofenac Diclofenac No Diclofenac Sodium 75 Sodium 75 Sodium 75 MG MG MG Ibuprofen Ibuprofen No TID Ibuprofen 200 MG 200 MG 200 MG Stiolto Stiolto No 2{puffs QD Stiolto Respimat Respimat } Respimat 2.5mcg/2.5m 2.5mcg/2.5m 2.5mcg/2.5 cg cg mcg Tylenol 325 Tylenol 325 No 1{table 6xD Tylenol MG MG t_as_ne 325 MG eded} Metoprolol Metoprolol No 1{table QD Metoprolol Succinate Succinate t} Succinate ER 25 MG ER 25 MG ER 25 MG Donepezil Donepezil No BID Donepezil HCl 10 MG HCl 10 MG HCl 10 MG Memantine Memantine No Memantine HCl 10 MG HCl 10 MG HCl 10 MG busPIRone busPIRone No busPIRone HCl 5 MG HCl 5 MG HCl 5 MG Omeprazole Omeprazole No Omeprazole 40 MG 40 MG 40 MG Folic Acid Folic Acid No 1{table QD Folic Acid 1 MG 1 MG t} 1 MG clonazePAM clonazePAM No 1{table QD clonazePAM 1 MG 1 MG t} 1 MG Carbidopa-L Carbidopa-L No 1{table BID Carbidopa- evodopa evodopa t_as_ne Levodopa 25-100 MG 25-100 MG eded} 25-100 MG Ibandronate Ibandronate No Ibandronat Sodium 150 Sodium 150 e Sodium MG MG 150 MG NovoFine NovoFine No QD NovoFine 32G X 6 MM 32G X 6 MM 32G X 6 MM Montelukast Montelukast No Montelukas Sodium 10 Sodium 10 t Sodium MG MG 10 MG Zioptan Zioptan No 1{drop_ QD Zioptan 0.0015 % 0.0015 % into_af 0.0015 % fected_ eye_in_ the_eve mindy} Diclofenac Diclofenac No Diclofenac Sodium 75 Sodium 75 Sodium 75 MG MG MG Turmeric Turmeric No Turmeric Curcumin Curcumin Curcumin Vitamin D3 Vitamin D3 No Vitamin D3 50,000 50,000 50,000 Fluticasone Fluticasone No Fluticason Propionate Propionate e 50 MCG/ACT 50 MCG/ACT Propionate 50 MCG/ACT Zioptan Zioptan No 1{drop_ QD Zioptan 0.0015 % 0.0015 % into_af 0.0015 % fected_ eye_in_ the_eve mindy} Simvastatin Simvastatin No Simvastati 20 MG 20 MG n 20 MG Toujeo Max Toujeo Max No Toujeo Max SoloStar SoloStar SoloStar 300 UNIT/ML 300 UNIT/ML 300 UNIT/ML Restasis Restasis No 1{drop_ BID Restasis 0.05 % 0.05 % into_af 0.05 % fected_ eye} Cephalexin Cephalexin No 1{capsu QID Cephalexin 500 MG 500 MG le} 500 MG Calcium Calcium No Calcium Folic Acid Folic Acid No 1{table QD Folic Acid 1 MG 1 MG t} 1 MG Melatonin Melatonin No Melatonin ER 10 MG ER 10 MG ER 10 MG NovoFine NovoFine No QD NovoFine 32G X 6 MM 32G X 6 MM 32G X 6 MM Simvastatin Simvastatin No Simvastati 20 MG 20 MG n 20 MG hydroCHLORO hydroCHLORO No 1{table QD hydroCHLOR thiazide thiazide t_in_ Othiazide 12.5 MG 12.5 MG e_morni 12.5 MG ng} Biotin Biotin No Biotin Fluticasone Fluticasone No Fluticason Propionate Propionate e 50 MCG/ACT 50 MCG/ACT Propionate 50 MCG/ACT Vitamin D3 Vitamin D3 No Vitamin D3 50,000 50,000 50,000 Omeprazole Omeprazole No Omeprazole 40 MG 40 MG 40 MG busPIRone busPIRone No busPIRone HCl 5 MG HCl 5 MG HCl 5 MG Super B Super B No Super B Complex/C Complex/C Complex/C Tylenol 325 Tylenol 325 No 1{table 6xD Tylenol MG MG t_as_ne 325 MG eded} Stiolto Stiolto No 2{puffs QD Stiolto Respimat Respimat } Respimat 2.5mcg/2.5m 2.5mcg/2.5m 2.5mcg/2.5 cg cg mcg Calcium Calcium No Calcium Donepezil Donepezil No BID Donepezil HCl 10 MG HCl 10 MG HCl 10 MG DULoxetine DULoxetine No DULoxetine HCl 30 MG HCl 30 MG HCl 30 MG Simvastatin Simvastatin No 1{table QD Simvastati 20 MG 20 MG t_in_th n 20 MG e_eveni ng} Remicade Remicade No Remicade 100 MG 100 MG 100 MG clonazePAM clonazePAM No 1{table QD clonazePAM 1 MG 1 MG t} 1 MG Probiotic Probiotic No Probiotic Cyanocobala Cyanocobala No 1{ml} Cyanocobal min 1000 min 1000 carcamo 1000 MCG/ML MCG/ML MCG/ML Montelukast Montelukast No Montelukas Sodium 10 Sodium 10 t Sodium MG MG 10 MG Ibandronate Ibandronate No Ibandronat Sodium 150 Sodium 150 e Sodium MG MG 150 MG Ibuprofen Ibuprofen No TID Ibuprofen 200 MG 200 MG 200 MG Donepezil Donepezil No BID Donepezil HCl 10 MG HCl 10 MG HCl 10 MG Cephalexin Cephalexin No 1{capsu QID Cephalexin 500 MG 500 MG le} 500 MG Turmeric Turmeric No Turmeric Curcumin Curcumin Curcumin Diclofenac Diclofenac No Diclofenac Sodium 75 Sodium 75 Sodium 75 MG MG MG Restasis Restasis No 1{drop_ BID Restasis 0.05 % 0.05 % into_af 0.05 % fected_ eye} Carbidopa-L Carbidopa-L No 1{table BID Carbidopa- evodopa evodopa t_as_ne Levodopa 25-100 MG 25-100 MG eded} 25-100 MG Clotrimazol Clotrimazol No Clotrimazo e 10 MG e 10 MG le 10 MG Memantine Memantine No Memantine HCl 10 MG HCl 10 MG HCl 10 MG DULoxetine DULoxetine No QD DULoxetine HCl 30 MG HCl 30 MG HCl 30 MG DULoxetine DULoxetine No QD DULoxetine HCl 60 MG HCl 60 MG HCl 60 MG Montelukast Montelukast No Montelukas Sodium 10 Sodium 10 t Sodium MG MG 10 MG Zioptan Zioptan No 1{drop_ QD Zioptan 0.0015 % 0.0015 % into_af 0.0015 % fected_ eye_in_ the_eve mindy} Metoprolol Metoprolol No 1{table QD Metoprolol Succinate Succinate t} Succinate ER 25 MG ER 25 MG ER 25 MG Gabapentin Gabapentin No Gabapentin 300 MG 300 MG 300 MG NovoFine NovoFine No QD NovoFine 32G X 6 MM 32G X 6 MM 32G X 6 MM Simvastatin Simvastatin No Simvastati 20 MG 20 MG n 20 MG hydroCHLORO hydroCHLORO No 1{table QD hydroCHLOR thiazide thiazide t_in_th Othiazide 12.5 MG 12.5 MG e_morni 12.5 MG ng} Melatonin Melatonin No Melatonin ER 10 MG ER 10 MG ER 10 MG Carbidopa-L Carbidopa-L No 1{table BID Carbidopa- evodopa evodopa t_as_ne Levodopa 25-100 MG 25-100 MG eded} 25-100 MG Diclofenac Diclofenac No Diclofenac Sodium 75 Sodium 75 Sodium 75 MG MG MG Restasis Restasis No 1{drop_ BID Restasis 0.05 % 0.05 % into_af 0.05 % fected_ eye} Omeprazole Omeprazole No Omeprazole 40 MG 40 MG 40 MG busPIRone busPIRone No busPIRone HCl 5 MG HCl 5 MG HCl 5 MG Super B Super B No Super B Complex/C Complex/C Complex/C Folic Acid Folic Acid No 1{table QD Folic Acid 1 MG 1 MG t} 1 MG Stiolto Stiolto No 2{puffs QD Stiolto Respimat Respimat } Respimat 2.5mcg/2.5m 2.5mcg/2.5m 2.5mcg/2.5 cg cg mcg Donepezil Donepezil No BID Donepezil HCl 10 MG HCl 10 MG HCl 10 MG Simvastatin Simvastatin No 1{table QD Simvastati 20 MG 20 MG t_in_th n 20 MG e_eveni ng} Biotin Biotin No Biotin Fluticasone Fluticasone No Fluticason Propionate Propionate e 50 MCG/ACT 50 MCG/ACT Propionate 50 MCG/ACT Vitamin D3 Vitamin D3 No Vitamin D3 50,000 50,000 50,000 Remicade Remicade No Remicade 100 MG 100 MG 100 MG Tylenol 325 Tylenol 325 No 1{table 6xD Tylenol MG MG t_as_ne 325 MG eded} Stiolto Stiolto No 2{puffs QD Stiolto Respimat Respimat } Respimat 2.5mcg/2.5m 2.5mcg/2.5m 2.5mcg/2.5 cg cg mcg Gabapentin Gabapentin No Gabapentin 300 MG 300 MG 300 MG Probiotic Probiotic No Probiotic Cyanocobala Cyanocobala No 1{ml} Cyanocobal min 1000 min 1000 carcamo 1000 MCG/ML MCG/ML MCG/ML Montelukast Montelukast No Montelukas Sodium 10 Sodium 10 t Sodium MG MG 10 MG Turmeric Turmeric No Turmeric Curcumin Curcumin Curcumin Ibuprofen Ibuprofen No TID Ibuprofen 200 MG 200 MG 200 MG Cephalexin Cephalexin No 1{capsu QID Cephalexin 500 MG 500 MG le} 500 MG Calcium Calcium No Calcium Ibandronate Ibandronate No Ibandronat Sodium 150 Sodium 150 e Sodium MG MG 150 MG clonazePAM clonazePAM No 1{table QD clonazePAM 1 MG 1 MG t} 1 MG Cyanocobala Cyanocobala No 1{ml} Cyanocobal min 1000 min 1000 carcamo 1000 MCG/ML MCG/ML MCG/ML Clotrimazol Clotrimazol No Clotrimazo e 10 MG e 10 MG le 10 MG Memantine Memantine No Memantine HCl 10 MG HCl 10 MG HCl 10 MG DULoxetine DULoxetine No QD DULoxetine HCl 30 MG HCl 30 MG HCl 30 MG DULoxetine DULoxetine No QD DULoxetine HCl 60 MG HCl 60 MG HCl 60 MG Zioptan Zioptan No 1{drop_ QD Zioptan 0.0015 % 0.0015 % into_af 0.0015 % fected_ eye_in_ the_eve mindy} Metoprolol Metoprolol No 1{table QD Metoprolol Succinate Succinate t} Succinate ER 25 MG ER 25 MG ER 25 MG Gabapentin Gabapentin No Gabapentin 300 MG 300 MG 300 MG Memantine Memantine No Memantine HCl 10 MG HCl 10 MG HCl 10 MG Fluticasone Fluticasone No Fluticason Propionate Propionate e 50 MCG/ACT 50 MCG/ACT Propionate 50 MCG/ACT Donepezil Donepezil No BID Donepezil HCl 10 MG HCl 10 MG HCl 10 MG Omeprazole Omeprazole No Omeprazole 40 MG 40 MG 40 MG Ibuprofen Ibuprofen No TID Ibuprofen 200 MG 200 MG 200 MG Simvastatin Simvastatin No Simvastati 20 MG 20 MG n 20 MG Vitamin D3 Vitamin D3 No Vitamin D3 50,000 50,000 50,000 Simvastatin Simvastatin No 1{table QD Simvastati 20 MG 20 MG t_in_th n 20 MG e_eveni ng} Diclofenac Diclofenac No Diclofenac Sodium 75 Sodium 75 Sodium 75 MG MG MG Super B Super B No Super B Complex/C Complex/C Complex/C Calcium Calcium No Calcium Ibuprofen Ibuprofen No TID Ibuprofen 200 MG 200 MG 200 MG DULoxetine DULoxetine No QD DULoxetine HCl 60 MG HCl 60 MG HCl 60 MG hydroCHLORO hydroCHLORO No 1{table QD hydroCHLOR thiazide thiazide t_in_th Othiazide 12.5 MG 12.5 MG e_morni 12.5 MG ng} Biotin Biotin No Biotin Carbidopa-L Carbidopa-L No 1{table BID Carbidopa- evodopa evodopa t_as_ne Levodopa 25-100 MG 25-100 MG eded} 25-100 MG Gabapentin Gabapentin No Gabapentin 300 MG 300 MG 300 MG busPIRone busPIRone No busPIRone HCl 5 MG HCl 5 MG HCl 5 MG Ibandronate Ibandronate No Ibandronat Sodium 150 Sodium 150 e Sodium MG MG 150 MG Tylenol 325 Tylenol 325 No 1{table 6xD Tylenol MG MG t_as_ne 325 MG eded} clonazePAM clonazePAM No 1{table QD clonazePAM 1 MG 1 MG t} 1 MG Turmeric Turmeric No Turmeric Curcumin Curcumin Curcumin Zioptan Zioptan No 1{drop_ QD Zioptan 0.0015 % 0.0015 % into_af 0.0015 % fected_ eye_in_ the_eve mindy} Toujeo Max Toujeo Max No Toujeo Max SoloStar SoloStar SoloStar 300 UNIT/ML 300 UNIT/ML 300 UNIT/ML Cyanocobala Cyanocobala No 1{ml} Cyanocobal min 1000 min 1000 carcamo 1000 MCG/ML MCG/ML MCG/ML Cephalexin Cephalexin No 1{capsu QID Cephalexin 500 MG 500 MG le} 500 MG Melatonin Melatonin No Melatonin ER 10 MG ER 10 MG ER 10 MG Folic Acid Folic Acid No 1{table QD Folic Acid 1 MG 1 MG t} 1 MG Metoprolol Metoprolol No 1{table QD Metoprolol Succinate Succinate t} Succinate ER 25 MG ER 25 MG ER 25 MG DULoxetine DULoxetine No QD DULoxetine HCl 30 MG HCl 30 MG HCl 30 MG Montelukast Montelukast No Montelukas Sodium 10 Sodium 10 t Sodium MG MG 10 MG Biotin Biotin No Biotin NovoFine NovoFine No QD NovoFine 32G X 6 MM 32G X 6 MM 32G X 6 MM hydroCHLORO hydroCHLORO No 1{table QD hydroCHLOR thiazide thiazide t_in_th Othiazide 12.5 MG 12.5 MG e_morni 12.5 MG ng} Memantine Memantine No Memantine HCl 10 MG HCl 10 MG HCl 10 MG Remicade Remicade No Remicade 100 MG 100 MG 100 MG Probiotic Probiotic No Probiotic Restasis Restasis No 1{drop_ BID Restasis 0.05 % 0.05 % into_af 0.05 % fected_ eye} Clotrimazol Clotrimazol No Clotrimazo e 10 MG e 10 MG le 10 MG Stiolto Stiolto No 2{puffs QD Stiolto Respimat Respimat } Respimat 2.5mcg/2.5m 2.5mcg/2.5m 2.5mcg/2.5 cg cg mcg Turmeric Turmeric No Turmeric Curcumin Curcumin Curcumin Folic Acid Folic Acid No 1{table QD Folic Acid 1 MG 1 MG t} 1 MG Montelukast Montelukast No Montelukas Sodium 10 Sodium 10 t Sodium MG MG 10 MG Metoprolol Metoprolol No 1{table QD Metoprolol Succinate Succinate t} Succinate ER 25 MG ER 25 MG ER 25 MG DULoxetine DULoxetine No QD DULoxetine HCl 30 MG HCl 30 MG HCl 30 MG Restasis Restasis No 1{drop_ BID Restasis 0.05 % 0.05 % into_af 0.05 % fected_ eye} Fluticasone Fluticasone No Fluticason Propionate Propionate e 50 MCG/ACT 50 MCG/ACT Propionate 50 MCG/ACT Cephalexin Cephalexin No 1{capsu QID Cephalexin 500 MG 500 MG le} 500 MG Tylenol 325 Tylenol 325 No 1{table 6xD Tylenol MG MG t_as_ne 325 MG eded} Probiotic Probiotic No Probiotic Simvastatin Simvastatin No 1{table QD Simvastati 20 MG 20 MG t_in_th n 20 MG e_eveni ng} Calcium Calcium No Calcium Lisinopril Lisinopril No 1{table QD Lisinopril 10 MG 10 MG t} 10 MG Vitamin D3 Vitamin D3 No Vitamin D3 50,000 50,000 50,000 Donepezil Donepezil No BID Donepezil HCl 10 MG HCl 10 MG HCl 10 MG Omeprazole Omeprazole No Omeprazole 40 MG 40 MG 40 MG Super B Super B No Super B Complex/C Complex/C Complex/C busPIRone busPIRone No busPIRone HCl 5 MG HCl 5 MG HCl 5 MG Ibuprofen Ibuprofen No TID Ibuprofen 200 MG 200 MG 200 MG Cephalexin Cephalexin No 1{capsu QID Cephalexin 500 MG 500 MG le} 500 MG DULoxetine DULoxetine No QD DULoxetine HCl 60 MG HCl 60 MG HCl 60 MG hydroCHLORO hydroCHLORO No 1{table QD hydroCHLOR thiazide thiazide t_in_th Othiazide 12.5 MG 12.5 MG e_morni 12.5 MG ng} clonazePAM clonazePAM No 1{table QD clonazePAM 1 MG 1 MG t} 1 MG Gabapentin Gabapentin No Gabapentin 300 MG 300 MG 300 MG Folic Acid Folic Acid No 1{table QD Folic Acid 1 MG 1 MG t} 1 MG Zioptan Zioptan No 1{drop_ QD Zioptan 0.0015 % 0.0015 % into_af 0.0015 % fected_ eye_in_ the_eve mindy} Biotin Biotin No Biotin Carbidopa-L Carbidopa-L No 1{table BID Carbidopa- evodopa evodopa t_as_ne Levodopa 25-100 MG 25-100 MG eded} 25-100 MG Simvastatin Simvastatin No Simvastati 20 MG 20 MG n 20 MG NovoFine NovoFine No QD NovoFine 32G X 6 MM 32G X 6 MM 32G X 6 MM Cyanocobala Cyanocobala No 1{ml} Cyanocobal min 1000 min 1000 carcamo 1000 MCG/ML MCG/ML MCG/ML Diclofenac Diclofenac No Diclofenac Sodium 75 Sodium 75 Sodium 75 MG MG MG Melatonin Melatonin No Melatonin ER 10 MG ER 10 MG ER 10 MG Simvastatin Simvastatin No Simvastati 20 MG 20 MG n 20 MG Turmeric Turmeric No Turmeric Curcumin Curcumin Curcumin Memantine Memantine No Memantine HCl 10 MG HCl 10 MG HCl 10 MG Remicade Remicade No Remicade 100 MG 100 MG 100 MG Simvastatin Simvastatin No 1{table QD Simvastati 20 MG 20 MG t_in_th n 20 MG e_eveni ng} Probiotic Probiotic No Probiotic Ibandronate Ibandronate No Ibandronat Sodium 150 Sodium 150 e Sodium MG MG 150 MG Clotrimazol Clotrimazol No Clotrimazo e 10 MG e 10 MG le 10 MG Stiolto Stiolto No 2{puffs QD Stiolto Respimat Respimat } Respimat 2.5mcg/2.5m 2.5mcg/2.5m 2.5mcg/2.5 cg cg mcg Carbidopa-L Carbidopa-L No 1{table BID Carbidopa- evodopa evodopa t_as_ne Levodopa 25-100 MG 25-100 MG eded} 25-100 MG Montelukast Montelukast No Montelukas Sodium 10 Sodium 10 t Sodium MG MG 10 MG Tylenol 325 Tylenol 325 No 1{table 6xD Tylenol MG MG t_as_ne 325 MG eded} Restasis Restasis No 1{drop_ BID Restasis 0.05 % 0.05 % into_af 0.05 % fected_ eye} Fluticasone Fluticasone No Fluticason Propionate Propionate e 50 MCG/ACT 50 MCG/ACT Propionate 50 MCG/ACT Carbidopa-L Carbidopa-L No 1{table BID Carbidopa- evodopa evodopa t_as_ne Levodopa 25-100 MG 25-100 MG eded} 25-100 MG DULoxetine DULoxetine No QD DULoxetine HCl 60 MG HCl 60 MG HCl 60 MG Metoprolol Metoprolol No 1{table QD Metoprolol Succinate Succinate t} Succinate ER 25 MG ER 25 MG ER 25 MG Calcium Calcium No Calcium Tylenol 325 Tylenol 325 No 1{table 6xD Tylenol MG MG t_as_ne 325 MG eded} DULoxetine DULoxetine No QD DULoxetine HCl 30 MG HCl 30 MG HCl 30 MG Cephalexin Cephalexin No 1{capsu QID Cephalexin 500 MG 500 MG le} 500 MG Donepezil Donepezil No BID Donepezil HCl 10 MG HCl 10 MG HCl 10 MG Omeprazole Omeprazole No Omeprazole 40 MG 40 MG 40 MG busPIRone busPIRone No busPIRone HCl 5 MG HCl 5 MG HCl 5 MG Lisinopril Lisinopril No 1{table QD Lisinopril 10 MG 10 MG t} 10 MG Vitamin D3 Vitamin D3 No Vitamin D3 50,000 50,000 50,000 hydroCHLORO hydroCHLORO No 1{table QD hydroCHLOR thiazide thiazide t_in_ Othiazide 12.5 MG 12.5 MG e_morni 12.5 MG ng} clonazePAM clonazePAM No 1{table QD clonazePAM 1 MG 1 MG t} 1 MG Vitamin D3 Vitamin D3 No Vitamin D3 50,000 50,000 50,000 Super B Super B No Super B Complex/C Complex/C Complex/C Folic Acid Folic Acid No 1{table QD Folic Acid 1 MG 1 MG t} 1 MG Zioptan Zioptan No 1{drop_ QD Zioptan 0.0015 % 0.0015 % into_af 0.0015 % fected_ eye_in_ the_eve mindy} Biotin Biotin No Biotin Ibuprofen Ibuprofen No TID Ibuprofen 200 MG 200 MG 200 MG NovoFine NovoFine No QD NovoFine 32G X 6 MM 32G X 6 MM 32G X 6 MM Cyanocobala Cyanocobala No 1{ml} Cyanocobal min 1000 min 1000 carcamo 1000 MCG/ML MCG/ML MCG/ML Simvastatin Simvastatin No 1{table QD Simvastati 20 MG 20 MG t_in_ n 20 MG e_eveni ng} Super B Super B No Super B Complex/C Complex/C Complex/C Diclofenac Diclofenac No Diclofenac Sodium 75 Sodium 75 Sodium 75 MG MG MG Gabapentin Gabapentin No Gabapentin 300 MG 300 MG 300 MG Melatonin Melatonin No Melatonin ER 10 MG ER 10 MG ER 10 MG Simvastatin Simvastatin No Simvastati 20 MG 20 MG n 20 MG Turmeric Turmeric No Turmeric Curcumin Curcumin Curcumin Memantine Memantine No Memantine HCl 10 MG HCl 10 MG HCl 10 MG Remicade Remicade No Remicade 100 MG 100 MG 100 MG Probiotic Probiotic No Probiotic Ibandronate Ibandronate No Ibandronat Sodium 150 Sodium 150 e Sodium MG MG 150 MG Clotrimazol Clotrimazol No Clotrimazo e 10 MG e 10 MG le 10 MG busPIRone busPIRone No busPIRone HCl 5 MG HCl 5 MG HCl 5 MG Stiolto Stiolto No 2{puffs QD Stiolto Respimat Respimat } Respimat 2.5mcg/2.5m 2.5mcg/2.5m 2.5mcg/2.5 cg cg mcg DULoxetine DULoxetine No QD DULoxetine HCl 60 MG HCl 60 MG HCl 60 MG Vitamin D3 Vitamin D3 No Vitamin D3 50,000 50,000 50,000 Fluticasone Fluticasone No 1{spray QD Fluticason Propionate Propionate _in_eac e 50 MCG/ACT 50 MCG/ACT h_nostr Propionate il} 50 MCG/ACT Omeprazole Omeprazole No Omeprazole 40 MG 40 MG 40 MG DULoxetine DULoxetine No QD DULoxetine HCl 30 MG HCl 30 MG HCl 30 MG Metoprolol Metoprolol No 1{table QD Metoprolol Succinate Succinate t} Succinate ER 25 MG ER 25 MG ER 25 MG Donepezil Donepezil No BID Donepezil HCl 10 MG HCl 10 MG HCl 10 MG Ibuprofen Ibuprofen No TID Ibuprofen 200 MG 200 MG 200 MG Simvastatin Simvastatin No 1{table QD Simvastati 20 MG 20 MG t_in_th n 20 MG e_eveni ng} hydroCHLORO hydroCHLORO No 1{table QD hydroCHLOR thiazide thiazide t_in_th Othiazide 12.5 MG 12.5 MG e_morni 12.5 MG ng} Lisinopril Lisinopril No 1{table QD Lisinopril 10 MG 10 MG t} 10 MG Calcium Calcium No Calcium Gabapentin Gabapentin No Gabapentin 300 MG 300 MG 300 MG Diclofenac Diclofenac No Diclofenac Sodium 75 Sodium 75 Sodium 75 MG MG MG Super B Super B No Super B Complex/C Complex/C Complex/C busPIRone busPIRone No busPIRone HCl 5 MG HCl 5 MG HCl 5 MG Ibandronate Ibandronate No Ibandronat Sodium 150 Sodium 150 e Sodium MG MG 150 MG clonazePAM clonazePAM No 1{table QD clonazePAM 1 MG 1 MG t} 1 MG Cyanocobala Cyanocobala No 1{ml} Cyanocobal min 1000 min 1000 carcamo 1000 MCG/ML MCG/ML MCG/ML Folic Acid Folic Acid No 1{table QD Folic Acid 1 MG 1 MG t} 1 MG Zioptan Zioptan No 1{drop_ QD Zioptan 0.0015 % 0.0015 % into_af 0.0015 % fected_ eye_in_ the_eve mindy} Simvastatin Simvastatin No Simvastati 20 MG 20 MG n 20 MG NovoFine NovoFine No QD NovoFine 32G X 6 MM 32G X 6 MM 32G X 6 MM Biotin Biotin No Biotin Carbidopa-L Carbidopa-L No 1{table BID Carbidopa- evodopa evodopa t_as_ne Levodopa 25-100 MG 25-100 MG eded} 25-100 MG Cephalexin Cephalexin No 1{capsu QID Cephalexin 500 MG 500 MG le} 500 MG Tylenol 325 Tylenol 325 No 1{table 6xD Tylenol MG MG t_as_ne 325 MG eded} Melatonin Melatonin No Melatonin ER 10 MG ER 10 MG ER 10 MG Montelukast Montelukast No Montelukas Sodium 10 Sodium 10 t Sodium MG MG 10 MG Turmeric Turmeric No Turmeric Curcumin Curcumin Curcumin Memantine Memantine No Memantine HCl 10 MG HCl 10 MG HCl 10 MG Remicade Remicade No Remicade 100 MG 100 MG 100 MG Probiotic Probiotic No Probiotic Restasis Restasis No 1{drop_ BID Restasis 0.05 % 0.05 % into_af 0.05 % fected_ eye} Clotrimazol Clotrimazol No Clotrimazo e 10 MG e 10 MG le 10 MG Stiolto Stiolto No 2{puffs QD Stiolto Respimat Respimat } Respimat 2.5mcg/2.5m 2.5mcg/2.5m 2.5mcg/2.5 cg cg mcg DULoxetine DULoxetine No QD DULoxetine HCl 60 MG HCl 60 MG HCl 60 MG Vitamin D3 Vitamin D3 No Vitamin D3 50,000 50,000 50,000 Fluticasone Fluticasone No 1{spray QD Fluticason Propionate Propionate _in_eac e 50 MCG/ACT 50 MCG/ACT h_nostr Propionate il} 50 MCG/ACT Omeprazole Omeprazole No Omeprazole 40 MG 40 MG 40 MG DULoxetine DULoxetine No QD DULoxetine HCl 30 MG HCl 30 MG HCl 30 MG Metoprolol Metoprolol No 1{table QD Metoprolol Succinate Succinate t} Succinate ER 25 MG ER 25 MG ER 25 MG Donepezil Donepezil No BID Donepezil HCl 10 MG HCl 10 MG HCl 10 MG Ibuprofen Ibuprofen No TID Ibuprofen 200 MG 200 MG 200 MG Simvastatin Simvastatin No 1{table QD Simvastati 20 MG 20 MG t_in_th n 20 MG e_eveni ng} hydroCHLORO hydroCHLORO No 1{table QD hydroCHLOR thiazide thiazide t_in_th Othiazide 12.5 MG 12.5 MG e_morni 12.5 MG ng} Lisinopril Lisinopril No 1{table QD Lisinopril 10 MG 10 MG t} 10 MG Calcium Calcium No Calcium Gabapentin Gabapentin No Gabapentin 300 MG 300 MG 300 MG Fluticasone Fluticasone No Fluticason Propionate Propionate e 50 MCG/ACT 50 MCG/ACT Propionate 50 MCG/ACT Diclofenac Diclofenac No Diclofenac Sodium 75 Sodium 75 Sodium 75 MG MG MG Super B Super B No Super B Complex/C Complex/C Complex/C busPIRone busPIRone No QID busPIRone HCl 5 MG HCl 5 MG HCl 5 MG Ibandronate Ibandronate No Ibandronat Sodium 150 Sodium 150 e Sodium MG MG 150 MG clonazePAM clonazePAM No 1{table QD clonazePAM 1 MG 1 MG t} 1 MG Cyanocobala Cyanocobala No 1{ml} Cyanocobal min 1000 min 1000 carcamo 1000 MCG/ML MCG/ML MCG/ML Folic Acid Folic Acid No 1{table QD Folic Acid 1 MG 1 MG t} 1 MG Zioptan Zioptan No 1{drop_ QD Zioptan 0.0015 % 0.0015 % into_af 0.0015 % fected_ eye_in_ the_eve mindy} Simvastatin Simvastatin No Simvastati 20 MG 20 MG n 20 MG Restasis Restasis No 1{drop_ BID Restasis 0.05 % 0.05 % into_af 0.05 % fected_ eye} NovoFine NovoFine No QD NovoFine 32G X 6 MM 32G X 6 MM 32G X 6 MM Biotin Biotin No Biotin Carbidopa-L Carbidopa-L No 1{table BID Carbidopa- evodopa evodopa t_as_ne Levodopa 25-100 MG 25-100 MG eded} 25-100 MG Cephalexin Cephalexin No 1{capsu QID Cephalexin 500 MG 500 MG le} 500 MG Tylenol 325 Tylenol 325 No 1{table 6xD Tylenol MG MG t_as_ne 325 MG eded} Melatonin Melatonin No Melatonin ER 10 MG ER 10 MG ER 10 MG Montelukast Montelukast No Montelukas Sodium 10 Sodium 10 t Sodium MG MG 10 MG Turmeric Turmeric No Turmeric Curcumin Curcumin Curcumin Memantine Memantine No Memantine HCl 10 MG HCl 10 MG HCl 10 MG Melatonin Melatonin No Melatonin ER 10 MG ER 10 MG ER 10 MG Remicade Remicade No Remicade 100 MG 100 MG 100 MG Probiotic Probiotic No Probiotic Restasis Restasis No 1{drop_ BID Restasis 0.05 % 0.05 % into_af 0.05 % fected_ eye} Clotrimazol Clotrimazol No Clotrimazo e 10 MG e 10 MG le 10 MG Stiolto Stiolto No 2{puffs QD Stiolto Respimat Respimat } Respimat 2.5mcg/2.5m 2.5mcg/2.5m 2.5mcg/2.5 cg cg mcg Simvastatin Simvastatin No Simvastati 20 MG 20 MG n 20 MG Folic Acid Folic Acid No 1{table QD Folic Acid 1 MG 1 MG t} 1 MG DULoxetine DULoxetine No QD DULoxetine HCl 60 MG HCl 60 MG HCl 60 MG Vitamin D3 Vitamin D3 No Vitamin D3 50,000 50,000 50,000 Fluticasone Fluticasone No 1{spray QD Fluticason Propionate Propionate _in_eac e 50 MCG/ACT 50 MCG/ACT h_nostr Propionate il} 50 MCG/ACT Omeprazole Omeprazole No Omeprazole 40 MG 40 MG 40 MG DULoxetine DULoxetine No QD DULoxetine HCl 30 MG HCl 30 MG HCl 30 MG Probiotic Probiotic No Probiotic Metoprolol Metoprolol No 1{table QD Metoprolol Succinate Succinate t} Succinate ER 25 MG ER 25 MG ER 25 MG Donepezil Donepezil No BID Donepezil HCl 10 MG HCl 10 MG HCl 10 MG Ibuprofen Ibuprofen No TID Ibuprofen 200 MG 200 MG 200 MG Simvastatin Simvastatin No 1{table QD Simvastati 20 MG 20 MG t_in_th n 20 MG e_eveni ng} hydroCHLORO hydroCHLORO No 1{table QD hydroCHLOR thiazide thiazide t_in_th Othiazide 12.5 MG 12.5 MG e_morni 12.5 MG ng} Lisinopril Lisinopril No 1{table QD Lisinopril 10 MG 10 MG t} 10 MG Calcium Calcium No Calcium Gabapentin Gabapentin No Gabapentin 300 MG 300 MG 300 MG Diclofenac Diclofenac No Diclofenac Sodium 75 Sodium 75 Sodium 75 MG MG MG Diclofenac Diclofenac No Diclofenac Sodium 75 Sodium 75 Sodium 75 MG MG MG Super B Super B No Super B Complex/C Complex/C Complex/C busPIRone busPIRone No QID busPIRone HCl 5 MG HCl 5 MG HCl 5 MG Ibandronate Ibandronate No Ibandronat Sodium 150 Sodium 150 e Sodium MG MG 150 MG clonazePAM clonazePAM No 1{table QD clonazePAM 1 MG 1 MG t} 1 MG Cyanocobala Cyanocobala No 1{ml} Cyanocobal min 1000 min 1000 carcamo 1000 MCG/ML MCG/ML MCG/ML Folic Acid Folic Acid No 1{table QD Folic Acid 1 MG 1 MG t} 1 MG Zioptan Zioptan No 1{drop_ QD Zioptan 0.0015 % 0.0015 % into_af 0.0015 % fected_ eye_in_ the_eve mindy} Simvastatin Simvastatin No Simvastati 20 MG 20 MG n 20 MG clonazePAM clonazePAM No 1{table QD clonazePAM 1 MG 1 MG t} 1 MG NovoFine NovoFine No QD NovoFine 32G X 6 MM 32G X 6 MM 32G X 6 MM Biotin Biotin No Biotin Carbidopa-L Carbidopa-L No 1{table BID Carbidopa- evodopa evodopa t_as_ne Levodopa 25-100 MG 25-100 MG eded} 25-100 MG Cephalexin Cephalexin No 1{capsu QID Cephalexin 500 MG 500 MG le} 500 MG Tylenol 325 Tylenol 325 No 1{table 6xD Tylenol MG MG t_as_ne 325 MG eded} Melatonin Melatonin No Melatonin ER 10 MG ER 10 MG ER 10 MG Montelukast Montelukast No Montelukas Sodium 10 Sodium 10 t Sodium MG MG 10 MG Turmeric Turmeric No Turmeric Curcumin Curcumin Curcumin Memantine Memantine No Memantine HCl 10 MG HCl 10 MG HCl 10 MG Zioptan Zioptan No 1{drop_ QD Zioptan 0.0015 % 0.0015 % into_af 0.0015 % fected_ eye_in_ the_eve mindy} Remicade Remicade No Remicade 100 MG 100 MG 100 MG Probiotic Probiotic No Probiotic Restasis Restasis No 1{drop_ BID Restasis 0.05 % 0.05 % into_af 0.05 % fected_ eye} Clotrimazol Clotrimazol No Clotrimazo e 10 MG e 10 MG le 10 MG Stiolto Stiolto No 2{puffs QD Stiolto Respimat Respimat } Respimat 2.5mcg/2.5m 2.5mcg/2.5m 2.5mcg/2.5 cg cg mcg Lisinopril Lisinopril No 1{table QD Lisinopril 10 MG 10 MG t} 10 MG Clotrimazol Clotrimazol No Clotrimazo e 10 MG e 10 MG le 10 MG Omeprazole Omeprazole No Omeprazole 40 MG 40 MG 40 MG Donepezil Donepezil No BID Donepezil HCl 10 MG HCl 10 MG HCl 10 MG Montelukast Montelukast No Montelukas Sodium 10 Sodium 10 t Sodium MG MG 10 MG DULoxetine DULoxetine No DULoxetine HCl 60 MG HCl 60 MG HCl 60 MG NovoFine NovoFine No QD NovoFine 32G X 6 MM 32G X 6 MM 32G X 6 MM Remicade Remicade No Remicade 100 MG 100 MG 100 MG Stiolto Stiolto No 2{puffs QD Stiolto Respimat Respimat } Respimat 2.5mcg/2.5m 2.5mcg/2.5m 2.5mcg/2.5 cg cg mcg Calcium Calcium No Calcium Cyanocobala Cyanocobala No 1{ml} Cyanocobal min 1000 min 1000 carcamo 1000 MCG/ML MCG/ML MCG/ML Simvastatin Simvastatin No 1{table QD Simvastati 20 MG 20 MG t_in_th n 20 MG e_eveni ng} Carbidopa-L Carbidopa-L No 1{table BID Carbidopa- evodopa evodopa t_as_ne Levodopa 25-100 MG 25-100 MG eded} 25-100 MG hydroCHLORO hydroCHLORO No 1{table QD hydroCHLOR thiazide thiazide t_in_th Othiazide 12.5 MG 12.5 MG e_morni 12.5 MG ng} Turmeric Turmeric No Turmeric Curcumin Curcumin Curcumin Cephalexin Cephalexin No 1{capsu QID Cephalexin 500 MG 500 MG le} 500 MG Gabapentin Gabapentin No Gabapentin 300 MG 300 MG 300 MG DULoxetine DULoxetine No DULoxetine HCl 30 MG HCl 30 MG HCl 30 MG Biotin Biotin No Biotin Memantine Memantine No Memantine HCl 10 MG HCl 10 MG HCl 10 MG Ibuprofen Ibuprofen No TID Ibuprofen 200 MG 200 MG 200 MG Toujeo Max Toujeo Max No Toujeo Max SoloStar SoloStar SoloStar 300 UNIT/ML 300 UNIT/ML 300 UNIT/ML Vitamin D3 Vitamin D3 No Vitamin D3 50,000 50,000 50,000 Super B Super B No Super B Complex/C Complex/C Complex/C Tylenol 325 Tylenol 325 No 1{table 6xD Tylenol MG MG t_as_ne 325 MG eded} busPIRone busPIRone No busPIRone HCl 5 MG HCl 5 MG HCl 5 MG Super B Super B No Super B Complex/C Complex/C Complex/C Lisinopril Lisinopril No 1{table QD Lisinopril 20 MG 20 MG t} 20 MG Aspir-81 81 Aspir-81 81 No 1{table QD Aspir-81 MG MG t} 81 MG Tylenol 325 Tylenol 325 No 1{table 6xD Tylenol MG MG t_as_ne 325 MG eded} Carafate 1 Carafate 1 No QID Carafate 1 GM GM GM Memantine Memantine No Memantine HCl 10 MG HCl 10 MG HCl 10 MG ProAir HFA ProAir HFA No 2{puffs QID ProAir HFA 108 (90 108 (90 _as_nee 108 (90 Base) Base) ded} Base) MCG/ACT MCG/ACT MCG/ACT Oxybutynin Oxybutynin No 1{table BID Oxybutynin Chloride 5 Chloride 5 t} Chloride 5 MG MG MG Zofran ODT Zofran ODT No BID Zofran ODT 4 MG 4 MG 4 MG busPIRone busPIRone No 1{table busPIRone HCl 5 MG HCl 5 MG t} HCl 5 MG FLUoxetine FLUoxetine No 1{capsu QD FLUoxetine HCl 40 MG HCl 40 MG le} HCl 40 MG Diclofenac Diclofenac No Diclofenac Sodium 75 Sodium 75 Sodium 75 MG MG MG Montelukast Montelukast No Montelukas Sodium 10 Sodium 10 t Sodium MG MG 10 MG Lisinopril Lisinopril No 1{table QD Lisinopril 10 MG 10 MG t} 10 MG busPIRone busPIRone No busPIRone HCl 5 MG HCl 5 MG HCl 5 MG Donepezil Donepezil No Donepezil HCl 5 MG HCl 5 MG HCl 5 MG Gabapentin Gabapentin No 1{capsu TID Gabapentin 300 MG 300 MG le} 300 MG Cymbalta 60 Cymbalta 60 No Cymbalta MG MG 60 MG Toujeo Toujeo No Toujeo SoloStar SoloStar SoloStar 300 UNIT/ML 300 UNIT/ML 300 UNIT/ML BD Pen BD Pen No BD Pen Needle Vita Needle Vita Needle U/F 32G X 4 U/F 32G X 4 Vita U/F MM MM 32G X 4 MM clonazePAM clonazePAM No 1{table QD clonazePAM 1 MG 1 MG t} 1 MG Cymbalta 30 Cymbalta 30 No Cymbalta MG MG 30 MG Restasis Restasis No 1{drop_ BID Restasis 0.05 % 0.05 % into_af 0.05 % fected_ eye} Victoza Victoza No Victoza 18MG/3ML 18MG/3ML 18MG/3ML NovoLOG NovoLOG No NovoLOG FlexPen 100 FlexPen 100 FlexPen UNIT/ML UNIT/ML 100 UNIT/ML Cymbalta 60 Cymbalta 60 No QD Cymbalta MG MG 60 MG Cymbalta 30 Cymbalta 30 No QD Cymbalta MG MG 30 MG Latanoprost Latanoprost No 1{drop_ QD Latanopros 0.005 % 0.005 % into_af t 0.005 % fected_ eye_in_ the_eve mindy} Clotrimazol Clotrimazol No Clotrimazo e 10 MG e 10 MG le 10 MG clonazePAM clonazePAM No 1{table QD clonazePAM 1 MG 1 MG t_on_ 1 MG e_tongu e_and_a llow_to _dissol ve} Stiolto Stiolto No 2{puffs QD Stiolto Respimat Respimat } Respimat 2.5mcg/2.5m 2.5mcg/2.5m 2.5mcg/2.5 cg cg mcg Flonase 50 Flonase 50 No 2{spray QD Flonase 50 MCG/ACT MCG/ACT _in_eac MCG/ACT h_nostr il} Toujeo Max Toujeo Max No Toujeo Max SoloStar SoloStar SoloStar 300 UNIT/ML 300 UNIT/ML 300 UNIT/ML Fluticasone Fluticasone No Fluticason Propionate Propionate e 50 MCG/ACT 50 MCG/ACT Propionate 50 MCG/ACT PriLOSEC 40 PriLOSEC 40 No PriLOSEC MG MG 40 MG Vitamin D3 Vitamin D3 No Vitamin D3 50,000 50,000 50,000 Metoprolol Metoprolol No QD Metoprolol Succinate Succinate Succinate ER 25 MG ER 25 MG ER 25 MG Budesonide Budesonide No Budesonide 3 MG 3 MG 3 MG Neurontin Neurontin No Neurontin 300 MG 300 MG 300 MG NovoFine NovoFine No QD NovoFine 32G X 6 MM 32G X 6 MM 32G X 6 MM Simvastatin Simvastatin No Simvastati 20 MG 20 MG n 20 MG Terbinafine Terbinafine No 1{table QD Terbinafin HCl 250 MG HCl 250 MG t} e HCl 250 MG Melatonin Melatonin No Melatonin ER 10 MG ER 10 MG ER 10 MG Fish Oil Fish Oil No 1{capsu QD Fish Oil 1000 MG 1000 MG le} 1000 MG Remicade Remicade No Remicade 100 MG 100 MG 100 MG Flonase Flonase No Flonase Allergy Allergy Allergy Relief 50 Relief 50 Relief 50 MCG/ACT MCG/ACT MCG/ACT Ketoconazol Ketoconazol No 1{appli QD Ketoconazo e 2 % e 2 % cation_ le 2 % to_affe cted_ar ea} Econazole Econazole No 1{appli QD Econazole Nitrate 1 % Nitrate 1 % cation_ Nitrate 1 to_affe % cted_ar ea} Singulair Singulair No Singulair 10 MG 10 MG 10 MG Flonase 50 Flonase 50 No Flonase 50 MCG/ACT MCG/ACT MCG/ACT Flonase Flonase No Flonase Allergy Allergy Allergy Relief 50 Relief 50 Relief 50 MCG/ACT MCG/ACT MCG/ACT NovoFine NovoFine No QD NovoFine 32G X 6 MM 32G X 6 MM 32G X 6 MM Aspir-81 81 Aspir-81 81 No 1{table QD Aspir-81 MG MG t} 81 MG Cymbalta 30 Cymbalta 30 No Cymbalta MG MG 30 MG Metoprolol Metoprolol No QD Metoprolol Succinate Succinate Succinate ER 25 MG ER 25 MG ER 25 MG Oxybutynin Oxybutynin No 1{table BID Oxybutynin Chloride 5 Chloride 5 t} Chloride 5 MG MG MG Singulair Singulair No Singulair 10 MG 10 MG 10 MG Remicade Remicade No Remicade 100 MG 100 MG 100 MG Flonase 50 Flonase 50 No 2{spray QD Flonase 50 MCG/ACT MCG/ACT _in_eac MCG/ACT h_nostr il} BD Pen BD Pen No BD Pen Needle Vita Needle Vita Needle U/F 32G X 4 U/F 32G X 4 Vita U/F MM MM 32G X 4 MM Flonase 50 Flonase 50 No Flonase 50 MCG/ACT MCG/ACT MCG/ACT Victoza Victoza No Victoza 18MG/3ML 18MG/3ML 18MG/3ML Zofran ODT Zofran ODT No BID Zofran ODT 4 MG 4 MG 4 MG Lisinopril Lisinopril No 1{table QD Lisinopril 20 MG 20 MG t} 20 MG Neurontin Neurontin No Neurontin 300 MG 300 MG 300 MG clonazePAM clonazePAM No 1{table QD clonazePAM 1 MG 1 MG t_on_th 1 MG e_tongu e_and_a llow_to _dissol ve} Gabapentin Gabapentin No 1{capsu TID Gabapentin 300 MG 300 MG le} 300 MG Omeprazole Omeprazole No Omeprazole 40 MG 40 MG 40 MG Latanoprost Latanoprost No 1{drop_ QD Latanopros 0.005 % 0.005 % into_af t 0.005 % fected_ eye_in_ the_eve mindy} Restasis Restasis No 1{drop_ BID Restasis 0.05 % 0.05 % into_af 0.05 % fected_ eye} Donepezil Donepezil No Donepezil HCl 5 MG HCl 5 MG HCl 5 MG Toujeo Toujeo No Toujeo SoloStar SoloStar SoloStar 300 UNIT/ML 300 UNIT/ML 300 UNIT/ML FLUoxetine FLUoxetine No 1{capsu QD FLUoxetine HCl 40 MG HCl 40 MG le} HCl 40 MG Econazole Econazole No 1{appli QD Econazole Nitrate 1 % Nitrate 1 % cation_ Nitrate 1 to_affe % cted_ar ea} Terbinafine Terbinafine No 1{table QD Terbinafin HCl 250 MG HCl 250 MG t} e HCl 250 MG ProAir HFA ProAir HFA No 2{puffs QID ProAir HFA 108 (90 108 (90 _as_nee 108 (90 Base) Base) ded} Base) MCG/ACT MCG/ACT MCG/ACT Lisinopril Lisinopril No 1{table QD Lisinopril 10 MG 10 MG t} 10 MG Melatonin Melatonin No Melatonin ER 10 MG ER 10 MG ER 10 MG Super B Super B No Super B Complex/C Complex/C Complex/C Cymbalta 60 Cymbalta 60 No Cymbalta MG MG 60 MG Fish Oil Fish Oil No 1{capsu QD Fish Oil 1000 MG 1000 MG le} 1000 MG Stiolto Stiolto No 2{puffs QD Stiolto Respimat Respimat } Respimat 2.5mcg/2.5m 2.5mcg/2.5m 2.5mcg/2.5 cg cg mcg DULoxetine DULoxetine No DULoxetine HCl 60 MG HCl 60 MG HCl 60 MG Memantine Memantine No Memantine HCl 10 MG HCl 10 MG HCl 10 MG Carafate 1 Carafate 1 No QID Carafate 1 GM GM GM Budesonide Budesonide No Budesonide 3 MG 3 MG 3 MG busPIRone busPIRone No busPIRone HCl 5 MG HCl 5 MG HCl 5 MG NovoLOG NovoLOG No NovoLOG FlexPen 100 FlexPen 100 FlexPen UNIT/ML UNIT/ML 100 UNIT/ML Clotrimazol Clotrimazol No Clotrimazo e 10 MG e 10 MG le 10 MG Fluticasone Fluticasone No Fluticason Propionate Propionate e 50 MCG/ACT 50 MCG/ACT Propionate 50 MCG/ACT clonazePAM clonazePAM No 1{table QD clonazePAM 1 MG 1 MG t} 1 MG Ketoconazol Ketoconazol No 1{appli QD Ketoconazo e 2 % e 2 % cation_ le 2 % to_affe cted_ar ea} Vitamin D3 Vitamin D3 No Vitamin D3 50,000 50,000 50,000 Toujeo Max Toujeo Max No Toujeo Max SoloStar SoloStar SoloStar 300 UNIT/ML 300 UNIT/ML 300 UNIT/ML Montelukast Montelukast No Montelukas Sodium 10 Sodium 10 t Sodium MG MG 10 MG Simvastatin Simvastatin No Simvastati 20 MG 20 MG n 20 MG Tylenol 325 Tylenol 325 No 1{table 6xD Tylenol MG MG t_as_ne 325 MG eded} DULoxetine DULoxetine No DULoxetine HCl 30 MG HCl 30 MG HCl 30 MG Diclofenac Diclofenac No Diclofenac Sodium 75 Sodium 75 Sodium 75 MG MG MG clonazePAM clonazePAM No 1{table QD clonazePAM 1 MG 1 MG t} 1 MG Calcium Calcium No Calcium Diclofenac Diclofenac No Diclofenac Sodium 75 Sodium 75 Sodium 75 MG MG MG NovoFine NovoFine No QD NovoFine 32G X 6 MM 32G X 6 MM 32G X 6 MM busPIRone busPIRone No 1{table busPIRone HCl 5 MG HCl 5 MG t} HCl 5 MG busPIRone busPIRone No busPIRone HCl 5 MG HCl 5 MG HCl 5 MG Gabapentin Gabapentin No 1{capsu TID Gabapentin 300 MG 300 MG le} 300 MG hydroCHLORO hydroCHLORO No 1{table QD hydroCHLOR thiazide thiazide t_in_th Othiazide 12.5 MG 12.5 MG e_morni 12.5 MG ng} Probiotic Probiotic No Probiotic Stiolto Stiolto No 2{puffs QD Stiolto Respimat Respimat } Respimat 2.5mcg/2.5m 2.5mcg/2.5m 2.5mcg/2.5 cg cg mcg Omeprazole Omeprazole No Omeprazole 40 MG 40 MG 40 MG Tylenol 325 Tylenol 325 No 1{table 6xD Tylenol MG MG t_as_ne 325 MG eded} Folic Acid Folic Acid No 1{table QD Folic Acid 1 MG 1 MG t} 1 MG Biotin Biotin No Biotin Clotrimazol Clotrimazol No Clotrimazo e 10 MG e 10 MG le 10 MG Super B Super B No Super B Complex/C Complex/C Complex/C DULoxetine DULoxetine No DULoxetine HCl 30 MG HCl 30 MG HCl 30 MG Donepezil Donepezil No Donepezil HCl 5 MG HCl 5 MG HCl 5 MG Vitamin D3 Vitamin D3 No Vitamin D3 50,000 50,000 50,000 Montelukast Montelukast No Montelukas Sodium 10 Sodium 10 t Sodium MG MG 10 MG Metoprolol Metoprolol No QD Metoprolol Succinate Succinate Succinate ER 25 MG ER 25 MG ER 25 MG Restasis Restasis No 1{drop_ BID Restasis 0.05 % 0.05 % into_af 0.05 % fected_ eye} Fluticasone Fluticasone No Fluticason Propionate Propionate e 50 MCG/ACT 50 MCG/ACT Propionate 50 MCG/ACT Toujeo Max Toujeo Max No Toujeo Max SoloStar SoloStar SoloStar 300 UNIT/ML 300 UNIT/ML 300 UNIT/ML Cymbalta 30 Cymbalta 30 No Cymbalta MG MG 30 MG Toujeo Max Toujeo Max No Toujeo Max SoloStar SoloStar SoloStar 300 UNIT/ML 300 UNIT/ML 300 UNIT/ML Memantine Memantine No Memantine HCl 10 MG HCl 10 MG HCl 10 MG Ibuprofen Ibuprofen No TID Ibuprofen 200 MG 200 MG 200 MG Simvastatin Simvastatin No Simvastati 20 MG 20 MG n 20 MG Turmeric Turmeric No Turmeric Curcumin Curcumin Curcumin Cymbalta 60 Cymbalta 60 No Cymbalta MG MG 60 MG Remicade Remicade No Remicade 100 MG 100 MG 100 MG Lisinopril Lisinopril No 1{table QD Lisinopril 10 MG 10 MG t} 10 MG Simvastatin Simvastatin No 1{table QD Simvastati 20 MG 20 MG t_in_th n 20 MG e_eveni ng} Zioptan Zioptan No 1{drop_ QD Zioptan 0.0015 % 0.0015 % into_af 0.0015 % fected_ eye_in_ the_eve mindy} Melatonin Melatonin No Melatonin ER 10 MG ER 10 MG ER 10 MG Cyanocobala Cyanocobala No 1{ml} Cyanocobal min 1000 min 1000 carcamo 1000 MCG/ML MCG/ML MCG/ML Oxybutynin Oxybutynin No 1{table BID Oxybutynin Chloride 5 Chloride 5 t} Chloride 5 MG MG MG Simvastatin Simvastatin No 1{table QD Simvastati 20 MG 20 MG t_in_th n 20 MG e_eveni ng} Turmeric Turmeric No Turmeric Curcumin Curcumin Curcumin Zioptan Zioptan No 1{drop_ QD Zioptan 0.0015 % 0.0015 % into_af 0.0015 % fected_ eye_in_ the_eve mindy} Memantine Memantine No Memantine HCl 10 MG HCl 10 MG HCl 10 MG Montelukast Montelukast No Montelukas Sodium 10 Sodium 10 t Sodium MG MG 10 MG Vitamin D3 Vitamin D3 No Vitamin D3 50,000 50,000 50,000 Oxybutynin Oxybutynin No 1{table BID Oxybutynin Chloride 5 Chloride 5 t} Chloride 5 MG MG MG Cyanocobala Cyanocobala No 1{ml} Cyanocobal min 1000 min 1000 carcamo 1000 MCG/ML MCG/ML MCG/ML Tylenol 325 Tylenol 325 No 1{table 6xD Tylenol MG MG t_as_ne 325 MG eded} Fluticasone Fluticasone No Fluticason Propionate Propionate e 50 MCG/ACT 50 MCG/ACT Propionate 50 MCG/ACT busPIRone busPIRone No busPIRone HCl 5 MG HCl 5 MG HCl 5 MG Calcium Calcium No Calcium Probiotic Probiotic No Probiotic Super B Super B No Super B Complex/C Complex/C Complex/C Stiolto Stiolto No 2{puffs QD Stiolto Respimat Respimat } Respimat 2.5mcg/2.5m 2.5mcg/2.5m 2.5mcg/2.5 cg cg mcg Diclofenac Diclofenac No Diclofenac Sodium 75 Sodium 75 Sodium 75 MG MG MG hydroCHLORO hydroCHLORO No 1{table QD hydroCHLOR thiazide thiazide t_in_th Othiazide 12.5 MG 12.5 MG e_morni 12.5 MG ng} Ibuprofen Ibuprofen No TID Ibuprofen 200 MG 200 MG 200 MG DULoxetine DULoxetine No DULoxetine HCl 30 MG HCl 30 MG HCl 30 MG Omeprazole Omeprazole No Omeprazole 40 MG 40 MG 40 MG Toujeo Max Toujeo Max No Toujeo Max SoloStar SoloStar SoloStar 300 UNIT/ML 300 UNIT/ML 300 UNIT/ML Cymbalta 60 Cymbalta 60 No Cymbalta MG MG 60 MG Restasis Restasis No 1{drop_ BID Restasis 0.05 % 0.05 % into_af 0.05 % fected_ eye} Simvastatin Simvastatin No Simvastati 20 MG 20 MG n 20 MG Clotrimazol Clotrimazol No Clotrimazo e 10 MG e 10 MG le 10 MG Toujeo Max Toujeo Max No Toujeo Max SoloStar SoloStar SoloStar 300 UNIT/ML 300 UNIT/ML 300 UNIT/ML Cymbalta 30 Cymbalta 30 No Cymbalta MG MG 30 MG busPIRone busPIRone No 1{table busPIRone HCl 5 MG HCl 5 MG t} HCl 5 MG Biotin Biotin No Biotin Folic Acid Folic Acid No 1{table QD Folic Acid 1 MG 1 MG t} 1 MG Gabapentin Gabapentin No 1{capsu TID Gabapentin 300 MG 300 MG le} 300 MG Metoprolol Metoprolol No QD Metoprolol Succinate Succinate Succinate ER 25 MG ER 25 MG ER 25 MG Remicade Remicade No Remicade 100 MG 100 MG 100 MG Lisinopril Lisinopril No 1{table QD Lisinopril 10 MG 10 MG t} 10 MG NovoFine NovoFine No QD NovoFine 32G X 6 MM 32G X 6 MM 32G X 6 MM clonazePAM clonazePAM No 1{table QD clonazePAM 1 MG 1 MG t} 1 MG Donepezil Donepezil No Donepezil HCl 5 MG HCl 5 MG HCl 5 MG Melatonin Melatonin No Melatonin ER 10 MG ER 10 MG ER 10 MG Diclofenac Diclofenac No Diclofenac Sodium 75 Sodium 75 Sodium 75 MG MG MG Probiotic Probiotic No Probiotic hydroCHLORO hydroCHLORO No 1{table QD hydroCHLOR thiazide thiazide t_in_th Othiazide 12.5 MG 12.5 MG e_morni 12.5 MG ng} busPIRone busPIRone No 1{table busPIRone HCl 5 MG HCl 5 MG t} HCl 5 MG DULoxetine DULoxetine No DULoxetine HCl 30 MG HCl 30 MG HCl 30 MG Super B Super B No Super B Complex/C Complex/C Complex/C Oxybutynin Oxybutynin No 1{table BID Oxybutynin Chloride 5 Chloride 5 t} Chloride 5 MG MG MG Biotin Biotin No Biotin Folic Acid Folic Acid No 1{table QD Folic Acid 1 MG 1 MG t} 1 MG Melatonin Melatonin No Melatonin ER 10 MG ER 10 MG ER 10 MG Montelukast Montelukast No Montelukas Sodium 10 Sodium 10 t Sodium MG MG 10 MG Vitamin D3 Vitamin D3 No Vitamin D3 50,000 50,000 50,000 Turmeric Turmeric No Turmeric Curcumin Curcumin Curcumin Zioptan Zioptan No 1{drop_ QD Zioptan 0.0015 % 0.0015 % into_af 0.0015 % fected_ eye_in_ the_eve mindy} busPIRone busPIRone No busPIRone HCl 5 MG HCl 5 MG HCl 5 MG Simvastatin Simvastatin No Simvastati 20 MG 20 MG n 20 MG Omeprazole Omeprazole No Omeprazole 40 MG 40 MG 40 MG Tylenol 325 Tylenol 325 No 1{table 6xD Tylenol MG MG t_as_ne 325 MG eded} Clotrimazol Clotrimazol No Clotrimazo e 10 MG e 10 MG le 10 MG Simvastatin Simvastatin No 1{table QD Simvastati 20 MG 20 MG t_in_th n 20 MG e_eveni ng} Memantine Memantine No Memantine HCl 10 MG HCl 10 MG HCl 10 MG clonazePAM clonazePAM No 1{table QD clonazePAM 1 MG 1 MG t} 1 MG Cymbalta 60 Cymbalta 60 No Cymbalta MG MG 60 MG Donepezil Donepezil No Donepezil HCl 5 MG HCl 5 MG HCl 5 MG Restasis Restasis No 1{drop_ BID Restasis 0.05 % 0.05 % into_af 0.05 % fected_ eye} Fluticasone Fluticasone No Fluticason Propionate Propionate e 50 MCG/ACT 50 MCG/ACT Propionate 50 MCG/ACT Ibuprofen Ibuprofen No TID Ibuprofen 200 MG 200 MG 200 MG Cyanocobala Cyanocobala No 1{ml} Cyanocobal min 1000 min 1000 carcamo 1000 MCG/ML MCG/ML MCG/ML Calcium Calcium No Calcium Lisinopril Lisinopril No 1{table QD Lisinopril 10 MG 10 MG t} 10 MG Toujeo Max Toujeo Max No Toujeo Max SoloStar SoloStar SoloStar 300 UNIT/ML 300 UNIT/ML 300 UNIT/ML Metoprolol Metoprolol No QD Metoprolol Succinate Succinate Succinate ER 25 MG ER 25 MG ER 25 MG NovoFine NovoFine No QD NovoFine 32G X 6 MM 32G X 6 MM 32G X 6 MM Toujeo Max Toujeo Max No Toujeo Max SoloStar SoloStar SoloStar 300 UNIT/ML 300 UNIT/ML 300 UNIT/ML Remicade Remicade No Remicade 100 MG 100 MG 100 MG Cymbalta 30 Cymbalta 30 No Cymbalta MG MG 30 MG Gabapentin Gabapentin No 1{capsu TID Gabapentin 300 MG 300 MG le} 300 MG Stiolto Stiolto No 2{puffs QD Stiolto Respimat Respimat } Respimat 2.5mcg/2.5m 2.5mcg/2.5m 2.5mcg/2.5 cg cg mcg Diclofenac Diclofenac No Diclofenac Sodium 75 Sodium 75 Sodium 75 MG MG MG Probiotic Probiotic No Probiotic hydroCHLORO hydroCHLORO No 1{table QD hydroCHLOR thiazide thiazide t_in_th Othiazide 12.5 MG 12.5 MG e_morni 12.5 MG ng} busPIRone busPIRone No 1{table busPIRone HCl 5 MG HCl 5 MG t} HCl 5 MG DULoxetine DULoxetine No DULoxetine HCl 30 MG HCl 30 MG HCl 30 MG Super B Super B No Super B Complex/C Complex/C Complex/C Oxybutynin Oxybutynin No 1{table BID Oxybutynin Chloride 5 Chloride 5 t} Chloride 5 MG MG MG Biotin Biotin No Biotin Folic Acid Folic Acid No 1{table QD Folic Acid 1 MG 1 MG t} 1 MG Melatonin Melatonin No Melatonin ER 10 MG ER 10 MG ER 10 MG Montelukast Montelukast No Montelukas Sodium 10 Sodium 10 t Sodium MG MG 10 MG Vitamin D3 Vitamin D3 No Vitamin D3 50,000 50,000 50,000 Turmeric Turmeric No Turmeric Curcumin Curcumin Curcumin Zioptan Zioptan No 1{drop_ QD Zioptan 0.0015 % 0.0015 % into_af 0.0015 % fected_ eye_in_ the_eve mindy} busPIRone busPIRone No busPIRone HCl 5 MG HCl 5 MG HCl 5 MG Simvastatin Simvastatin No Simvastati 20 MG 20 MG n 20 MG Omeprazole Omeprazole No Omeprazole 40 MG 40 MG 40 MG Tylenol 325 Tylenol 325 No 1{table 6xD Tylenol MG MG t_as_ne 325 MG eded} Clotrimazol Clotrimazol No Clotrimazo e 10 MG e 10 MG le 10 MG Simvastatin Simvastatin No 1{table QD Simvastati 20 MG 20 MG t_in_th n 20 MG e_eveni ng} Memantine Memantine No Memantine HCl 10 MG HCl 10 MG HCl 10 MG clonazePAM clonazePAM No 1{table QD clonazePAM 1 MG 1 MG t} 1 MG Cymbalta 60 Cymbalta 60 No Cymbalta MG MG 60 MG Donepezil Donepezil No Donepezil HCl 5 MG HCl 5 MG HCl 5 MG Restasis Restasis No 1{drop_ BID Restasis 0.05 % 0.05 % into_af 0.05 % fected_ eye} Fluticasone Fluticasone No Fluticason Propionate Propionate e 50 MCG/ACT 50 MCG/ACT Propionate 50 MCG/ACT Ibuprofen Ibuprofen No TID Ibuprofen 200 MG 200 MG 200 MG Cyanocobala Cyanocobala No 1{ml} Cyanocobal min 1000 min 1000 carcamo 1000 MCG/ML MCG/ML MCG/ML Calcium Calcium No Calcium Lisinopril Lisinopril No 1{table QD Lisinopril 10 MG 10 MG t} 10 MG Toujeo Max Toujeo Max No Toujeo Max SoloStar SoloStar SoloStar 300 UNIT/ML 300 UNIT/ML 300 UNIT/ML Metoprolol Metoprolol No QD Metoprolol Succinate Succinate Succinate ER 25 MG ER 25 MG ER 25 MG NovoFine NovoFine No QD NovoFine 32G X 6 MM 32G X 6 MM 32G X 6 MM Toujeo Max Toujeo Max No Toujeo Max SoloStar SoloStar SoloStar 300 UNIT/ML 300 UNIT/ML 300 UNIT/ML Remicade Remicade No Remicade 100 MG 100 MG 100 MG Cymbalta 30 Cymbalta 30 No Cymbalta MG MG 30 MG Gabapentin Gabapentin No 1{capsu TID Gabapentin 300 MG 300 MG le} 300 MG Stiolto Stiolto No 2{puffs QD Stiolto Respimat Respimat } Respimat 2.5mcg/2.5m 2.5mcg/2.5m 2.5mcg/2.5 cg cg mcg Diclofenac Diclofenac No Sodium 75 Sodium 75 MG MG Probiotic Probiotic No hydroCHLORO hydroCHLORO No 1{table QD thiazide thiazide t_in_ 12.5 MG 12.5 MG e_morni ng} busPIRone busPIRone No 1{table HCl 5 MG HCl 5 MG t} DULoxetine DULoxetine No HCl 30 MG HCl 30 MG Super B Super B No Complex/C Complex/C Oxybutynin Oxybutynin No 1{table BID Chloride 5 Chloride 5 t} MG MG Biotin Biotin No Folic Acid Folic Acid No 1{table QD 1 MG 1 MG t} Melatonin Melatonin No ER 10 MG ER 10 MG Montelukast Montelukast No Sodium 10 Sodium 10 MG MG Vitamin D3 Vitamin D3 No 50,000 50,000 Turmeric Turmeric No Curcumin Curcumin Zioptan Zioptan No 1{drop_ QD 0.0015 % 0.0015 % into_af fected_ eye_in_ the_eve mindy} busPIRone busPIRone No HCl 5 MG HCl 5 MG Simvastatin Simvastatin No 20 MG 20 MG Omeprazole Omeprazole No 40 MG 40 MG Tylenol 325 Tylenol 325 No 1{table 6xD MG MG t_as_ne eded} Clotrimazol Clotrimazol No e 10 MG e 10 MG Fluticasone Fluticasone No Propionate Propionate 50 MCG/ACT 50 MCG/ACT Simvastatin Simvastatin No 1{table QD 20 MG 20 MG t_in_th e_eveni ng} clonazePAM clonazePAM No 1{table QD 1 MG 1 MG t} Toujeo Max Toujeo Max No SoloStar SoloStar 300 UNIT/ML 300 UNIT/ML Donepezil Donepezil No HCl 5 MG HCl 5 MG Restasis Restasis No 1{drop_ BID 0.05 % 0.05 % into_af fected_ eye} Cymbalta 60 Cymbalta 60 No MG MG Ibuprofen Ibuprofen No TID 200 MG 200 MG Cyanocobala Cyanocobala No 1{ml} min 1000 min 1000 MCG/ML MCG/ML Calcium Calcium No Lisinopril Lisinopril No 1{table QD 10 MG 10 MG t} Memantine Memantine No HCl 10 MG HCl 10 MG Metoprolol Metoprolol No QD Succinate Succinate ER 25 MG ER 25 MG NovoFine NovoFine No QD 32G X 6 MM 32G X 6 MM Toujeo Max Toujeo Max No SoloStar SoloStar 300 UNIT/ML 300 UNIT/ML Remicade Remicade No 100 MG 100 MG Cymbalta 30 Cymbalta 30 No MG MG Gabapentin Gabapentin No 1{capsu TID 300 MG 300 MG le} Stiolto Stiolto No 2{puffs QD Respimat Respimat } 2.5mcg/2.5m 2.5mcg/2.5m cg cg Diclofenac Diclofenac No Diclofenac Sodium 75 Sodium 75 Sodium 75 MG MG MG Probiotic Probiotic No Probiotic hydroCHLORO hydroCHLORO No 1{table QD hydroCHLOR thiazide thiazide t_in_th Othiazide 12.5 MG 12.5 MG e_morni 12.5 MG ng} busPIRone busPIRone No 1{table busPIRone HCl 5 MG HCl 5 MG t} HCl 5 MG DULoxetine DULoxetine No DULoxetine HCl 30 MG HCl 30 MG HCl 30 MG Super B Super B No Super B Complex/C Complex/C Complex/C Oxybutynin Oxybutynin No 1{table BID Oxybutynin Chloride 5 Chloride 5 t} Chloride 5 MG MG MG Biotin Biotin No Biotin Folic Acid Folic Acid No 1{table QD Folic Acid 1 MG 1 MG t} 1 MG Melatonin Melatonin No Melatonin ER 10 MG ER 10 MG ER 10 MG Montelukast Montelukast No Montelukas Sodium 10 Sodium 10 t Sodium MG MG 10 MG Vitamin D3 Vitamin D3 No Vitamin D3 50,000 50,000 50,000 Turmeric Turmeric No Turmeric Curcumin Curcumin Curcumin Zioptan Zioptan No 1{drop_ QD Zioptan 0.0015 % 0.0015 % into_af 0.0015 % fected_ eye_in_ the_eve mindy} busPIRone busPIRone No busPIRone HCl 5 MG HCl 5 MG HCl 5 MG Simvastatin Simvastatin No Simvastati 20 MG 20 MG n 20 MG Omeprazole Omeprazole No Omeprazole 40 MG 40 MG 40 MG Tylenol 325 Tylenol 325 No 1{table 6xD Tylenol MG MG t_as_ne 325 MG eded} Clotrimazol Clotrimazol No Clotrimazo e 10 MG e 10 MG le 10 MG Fluticasone Fluticasone No Fluticason Propionate Propionate e 50 MCG/ACT 50 MCG/ACT Propionate 50 MCG/ACT Simvastatin Simvastatin No 1{table QD Simvastati 20 MG 20 MG t_in_th n 20 MG e_eveni ng} clonazePAM clonazePAM No 1{table QD clonazePAM 1 MG 1 MG t} 1 MG Toujeo Max Toujeo Max No Toujeo Max SoloStar SoloStar SoloStar 300 UNIT/ML 300 UNIT/ML 300 UNIT/ML Donepezil Donepezil No Donepezil HCl 5 MG HCl 5 MG HCl 5 MG Restasis Restasis No 1{drop_ BID Restasis 0.05 % 0.05 % into_af 0.05 % fected_ eye} Cymbalta 60 Cymbalta 60 No Cymbalta MG MG 60 MG Ibuprofen Ibuprofen No TID Ibuprofen 200 MG 200 MG 200 MG Cyanocobala Cyanocobala No 1{ml} Cyanocobal min 1000 min 1000 carcamo 1000 MCG/ML MCG/ML MCG/ML Calcium Calcium No Calcium Lisinopril Lisinopril No 1{table QD Lisinopril 10 MG 10 MG t} 10 MG Memantine Memantine No Memantine HCl 10 MG HCl 10 MG HCl 10 MG Metoprolol Metoprolol No QD Metoprolol Succinate Succinate Succinate ER 25 MG ER 25 MG ER 25 MG NovoFine NovoFine No QD NovoFine 32G X 6 MM 32G X 6 MM 32G X 6 MM Toujeo Max Toujeo Max No Toujeo Max SoloStar SoloStar SoloStar 300 UNIT/ML 300 UNIT/ML 300 UNIT/ML Remicade Remicade No Remicade 100 MG 100 MG 100 MG Cymbalta 30 Cymbalta 30 No Cymbalta MG MG 30 MG Gabapentin Gabapentin No 1{capsu TID Gabapentin 300 MG 300 MG le} 300 MG Stiolto Stiolto No 2{puffs QD Stiolto Respimat Respimat } Respimat 2.5mcg/2.5m 2.5mcg/2.5m 2.5mcg/2.5 cg cg mcg Oxybutynin Oxybutynin No 1{table BID Oxybutynin Chloride 5 Chloride 5 t} Chloride 5 MG MG MG Probiotic Probiotic No Probiotic Folic Acid Folic Acid No 1{table QD Folic Acid 1 MG 1 MG t} 1 MG Melatonin Melatonin No Melatonin ER 10 MG ER 10 MG ER 10 MG DULoxetine DULoxetine No DULoxetine HCl 30 MG HCl 30 MG HCl 30 MG Vitamin D3 Vitamin D3 No Vitamin D3 50,000 50,000 50,000 Toujeo Max Toujeo Max No Toujeo Max SoloStar SoloStar SoloStar 300 UNIT/ML 300 UNIT/ML 300 UNIT/ML Turmeric Turmeric No Turmeric Curcumin Curcumin Curcumin Zioptan Zioptan No 1{drop_ QD Zioptan 0.0015 % 0.0015 % into_af 0.0015 % fected_ eye_in_ the_eve [facility]} Biotin Biotin No Biotin Simvastatin Simvastatin No Simvastati 20 MG 20 MG n 20 MG Calcium Calcium No Calcium DULoxetine DULoxetine No DULoxetine HCl 60 MG HCl 60 MG HCl 60 MG Omeprazole Omeprazole No Omeprazole 40 MG 40 MG 40 MG Tylenol 325 Tylenol 325 No 1{table 6xD Tylenol MG MG t_as_ne 325 MG eded} Clotrimazol Clotrimazol No Clotrimazo e 10 MG e 10 MG le 10 MG busPIRone busPIRone No busPIRone HCl 5 MG HCl 5 MG HCl 5 MG Super B Super B No Super B Complex/C Complex/C Complex/C Cymbalta 30 Cymbalta 30 No Cymbalta MG MG 30 MG Cymbalta 60 Cymbalta 60 No Cymbalta MG MG 60 MG Fluticasone Fluticasone No Fluticason Propionate Propionate e 50 MCG/ACT 50 MCG/ACT Propionate 50 MCG/ACT Lisinopril Lisinopril No 1{table QD Lisinopril 10 MG 10 MG t} 10 MG Montelukast Montelukast No Montelukas Sodium 10 Sodium 10 t Sodium MG MG 10 MG Donepezil Donepezil No Donepezil HCl 5 MG HCl 5 MG HCl 5 MG Metoprolol Metoprolol No QD Metoprolol Succinate Succinate Succinate ER 25 MG ER 25 MG ER 25 MG Memantine Memantine No Memantine HCl 10 MG HCl 10 MG HCl 10 MG Ibuprofen Ibuprofen No TID Ibuprofen 200 MG 200 MG 200 MG Cyanocobala Cyanocobala No 1{ml} Cyanocobal min 1000 min 1000 carcamo 1000 MCG/ML MCG/ML MCG/ML hydroCHLORO hydroCHLORO No 1{table QD hydroCHLOR thiazide thiazide t_in_th Othiazide 12.5 MG 12.5 MG e_morni 12.5 MG ng} Restasis Restasis No 1{drop_ BID Restasis 0.05 % 0.05 % into_af 0.05 % fected_ eye} Diclofenac Diclofenac No Diclofenac Sodium 75 Sodium 75 Sodium 75 MG MG MG Simvastatin Simvastatin No 1{table QD Simvastati 20 MG 20 MG t_in_th n 20 MG e_eveni ng} clonazePAM clonazePAM No 1{table QD clonazePAM 1 MG 1 MG t} 1 MG Remicade Remicade No Remicade 100 MG 100 MG 100 MG NovoFine NovoFine No QD NovoFine 32G X 6 MM 32G X 6 MM 32G X 6 MM Gabapentin Gabapentin No 1{capsu TID Gabapentin 300 MG 300 MG le} 300 MG Stiolto Stiolto No 2{puffs QD Stiolto Respimat Respimat } Respimat 2.5mcg/2.5m 2.5mcg/2.5m 2.5mcg/2.5 cg cg mcg Oxybutynin Oxybutynin No 1{table BID Oxybutynin Chloride 5 Chloride 5 t} Chloride 5 MG MG MG Probiotic Probiotic No Probiotic Folic Acid Folic Acid No 1{table QD Folic Acid 1 MG 1 MG t} 1 MG Melatonin Melatonin No Melatonin ER 10 MG ER 10 MG ER 10 MG DULoxetine DULoxetine No DULoxetine HCl 30 MG HCl 30 MG HCl 30 MG Vitamin D3 Vitamin D3 No Vitamin D3 50,000 50,000 50,000 Toujeo Max Toujeo Max No Toujeo Max SoloStar SoloStar SoloStar 300 UNIT/ML 300 UNIT/ML 300 UNIT/ML Turmeric Turmeric No Turmeric Curcumin Curcumin Curcumin Zioptan Zioptan No 1{drop_ QD Zioptan 0.0015 % 0.0015 % into_af 0.0015 % fected_ eye_in_ the_eve mindy} Biotin Biotin No Biotin Simvastatin Simvastatin No Simvastati 20 MG 20 MG n 20 MG Calcium Calcium No Calcium DULoxetine DULoxetine No DULoxetine HCl 60 MG HCl 60 MG HCl 60 MG Omeprazole Omeprazole No Omeprazole 40 MG 40 MG 40 MG Tylenol 325 Tylenol 325 No 1{table 6xD Tylenol MG MG t_as_ne 325 MG eded} Clotrimazol Clotrimazol No Clotrimazo e 10 MG e 10 MG le 10 MG busPIRone busPIRone No busPIRone HCl 5 MG HCl 5 MG HCl 5 MG Super B Super B No Super B Complex/C Complex/C Complex/C Cymbalta 30 Cymbalta 30 No Cymbalta MG MG 30 MG Cymbalta 60 Cymbalta 60 No Cymbalta MG MG 60 MG Fluticasone Fluticasone No Fluticason Propionate Propionate e 50 MCG/ACT 50 MCG/ACT Propionate 50 MCG/ACT Lisinopril Lisinopril No 1{table QD Lisinopril 10 MG 10 MG t} 10 MG Montelukast Montelukast No Montelukas Sodium 10 Sodium 10 t Sodium MG MG 10 MG Donepezil Donepezil No Donepezil HCl 5 MG HCl 5 MG HCl 5 MG Metoprolol Metoprolol No QD Metoprolol Succinate Succinate Succinate ER 25 MG ER 25 MG ER 25 MG Memantine Memantine No Memantine HCl 10 MG HCl 10 MG HCl 10 MG Ibuprofen Ibuprofen No TID Ibuprofen 200 MG 200 MG 200 MG Cyanocobala Cyanocobala No 1{ml} Cyanocobal min 1000 min 1000 carcamo 1000 MCG/ML MCG/ML MCG/ML hydroCHLORO hydroCHLORO No 1{table QD hydroCHLOR thiazide thiazide t_in_th Othiazide 12.5 MG 12.5 MG e_morni 12.5 MG ng} Restasis Restasis No 1{drop_ BID Restasis 0.05 % 0.05 % into_af 0.05 % fected_ eye} Diclofenac Diclofenac No Diclofenac Sodium 75 Sodium 75 Sodium 75 MG MG MG Simvastatin Simvastatin No 1{table QD Simvastati 20 MG 20 MG t_in_th n 20 MG e_eveni ng} clonazePAM clonazePAM No 1{table QD clonazePAM 1 MG 1 MG t} 1 MG Remicade Remicade No Remicade 100 MG 100 MG 100 MG NovoFine NovoFine No QD NovoFine 32G X 6 MM 32G X 6 MM 32G X 6 MM Gabapentin Gabapentin No 1{capsu TID Gabapentin 300 MG 300 MG le} 300 MG Stiolto Stiolto No 2{puffs QD Stiolto Respimat Respimat } Respimat 2.5mcg/2.5m 2.5mcg/2.5m 2.5mcg/2.5 cg cg mcg Memantine Memantine No Memantine HCl 10 MG HCl 10 MG HCl 10 MG Probiotic Probiotic No Probiotic Folic Acid Folic Acid No 1{table QD Folic Acid 1 MG 1 MG t} 1 MG Oxybutynin Oxybutynin No 1{table BID Oxybutynin Chloride 5 Chloride 5 t} Chloride 5 MG MG MG DULoxetine DULoxetine No DULoxetine HCl 30 MG HCl 30 MG HCl 30 MG Vitamin D3 Vitamin D3 No Vitamin D3 50,000 50,000 50,000 Toujeo Max Toujeo Max No Toujeo Max SoloStar SoloStar SoloStar 300 UNIT/ML 300 UNIT/ML 300 UNIT/ML Turmeric Turmeric No Turmeric Curcumin Curcumin Curcumin Zioptan Zioptan No 1{drop_ QD Zioptan 0.0015 % 0.0015 % into_af 0.0015 % fected_ eye_in_ the_eve [facility]} Biotin Biotin No Biotin Simvastatin Simvastatin No Simvastati 20 MG 20 MG n 20 MG Calcium Calcium No Calcium DULoxetine DULoxetine No DULoxetine HCl 60 MG HCl 60 MG HCl 60 MG Omeprazole Omeprazole No Omeprazole 40 MG 40 MG 40 MG Tylenol 325 Tylenol 325 No 1{table 6xD Tylenol MG MG t_as_ne 325 MG eded} Clotrimazol Clotrimazol No Clotrimazo e 10 MG e 10 MG le 10 MG busPIRone busPIRone No busPIRone HCl 5 MG HCl 5 MG HCl 5 MG Super B Super B No Super B Complex/C Complex/C Complex/C Cymbalta 30 Cymbalta 30 No Cymbalta MG MG 30 MG Cymbalta 60 Cymbalta 60 No Cymbalta MG MG 60 MG Fluticasone Fluticasone No Fluticason Propionate Propionate e 50 MCG/ACT 50 MCG/ACT Propionate 50 MCG/ACT Lisinopril Lisinopril No 1{table QD Lisinopril 10 MG 10 MG t} 10 MG Diclofenac Diclofenac No Diclofenac Sodium 75 Sodium 75 Sodium 75 MG MG MG Donepezil Donepezil No Donepezil HCl 5 MG HCl 5 MG HCl 5 MG Metoprolol Metoprolol No QD Metoprolol Succinate Succinate Succinate ER 25 MG ER 25 MG ER 25 MG Montelukast Montelukast No Montelukas Sodium 10 Sodium 10 t Sodium MG MG 10 MG Ibuprofen Ibuprofen No TID Ibuprofen 200 MG 200 MG 200 MG Cyanocobala Cyanocobala No 1{ml} Cyanocobal min 1000 min 1000 carcamo 1000 MCG/ML MCG/ML MCG/ML hydroCHLORO hydroCHLORO No 1{table QD hydroCHLOR thiazide thiazide t_in_th Othiazide 12.5 MG 12.5 MG e_morni 12.5 MG ng} Restasis Restasis No 1{drop_ BID Restasis 0.05 % 0.05 % into_af 0.05 % fected_ eye} Melatonin Melatonin No Melatonin ER 10 MG ER 10 MG ER 10 MG Simvastatin Simvastatin No 1{table QD Simvastati 20 MG 20 MG t_in_th n 20 MG e_eveni ng} clonazePAM clonazePAM No 1{table QD clonazePAM 1 MG 1 MG t} 1 MG Remicade Remicade No Remicade 100 MG 100 MG 100 MG NovoFine NovoFine No QD NovoFine 32G X 6 MM 32G X 6 MM 32G X 6 MM Gabapentin Gabapentin No 1{capsu TID Gabapentin 300 MG 300 MG le} 300 MG Stiolto Stiolto No 2{puffs QD Stiolto Respimat Respimat } Respimat 2.5mcg/2.5m 2.5mcg/2.5m 2.5mcg/2.5 cg cg mcg Donepezil Donepezil No Donepezil HCl 5 MG HCl 5 MG HCl 5 MG Super B Super B No Super B Complex/C Complex/C Complex/C Fluticasone Fluticasone No Fluticason Propionate Propionate e 50 MCG/ACT 50 MCG/ACT Propionate 50 MCG/ACT Turmeric Turmeric No Turmeric Curcumin Curcumin Curcumin Clotrimazol Clotrimazol No Clotrimazo e 10 MG e 10 MG le 10 MG Memantine Memantine No Memantine HCl 10 MG HCl 10 MG HCl 10 MG Restasis Restasis No 1{drop_ BID Restasis 0.05 % 0.05 % into_af 0.05 % fected_ eye} Vitamin D3 Vitamin D3 No Vitamin D3 50,000 50,000 50,000 Folic Acid Folic Acid No 1{table QD Folic Acid 1 MG 1 MG t} 1 MG DULoxetine DULoxetine No DULoxetine HCl 30 MG HCl 30 MG HCl 30 MG Ibuprofen Ibuprofen No TID Ibuprofen 200 MG 200 MG 200 MG busPIRone busPIRone No busPIRone HCl 5 MG HCl 5 MG HCl 5 MG Montelukast Montelukast No Montelukas Sodium 10 Sodium 10 t Sodium MG MG 10 MG Diclofenac Diclofenac No Diclofenac Sodium 75 Sodium 75 Sodium 75 MG MG MG Zioptan Zioptan No 1{drop_ QD Zioptan 0.0015 % 0.0015 % into_af 0.0015 % fected_ eye_in_ the_eve [facility]} Probiotic Probiotic No Probiotic Cyanocobala Cyanocobala No 1{ml} Cyanocobal min 1000 min 1000 carcamo 1000 MCG/ML MCG/ML MCG/ML Omeprazole Omeprazole No Omeprazole 40 MG 40 MG 40 MG Toujeo Max Toujeo Max No Toujeo Max SoloStar SoloStar SoloStar 300 UNIT/ML 300 UNIT/ML 300 UNIT/ML Gabapentin Gabapentin No Gabapentin 300 MG 300 MG 300 MG Stiolto Stiolto No 2{puffs QD Stiolto Respimat Respimat } Respimat 2.5mcg/2.5m 2.5mcg/2.5m 2.5mcg/2.5 cg cg mcg Oxybutynin Oxybutynin No 1{table BID Oxybutynin Chloride 5 Chloride 5 t} Chloride 5 MG MG MG Cymbalta 60 Cymbalta 60 No Cymbalta MG MG 60 MG hydroCHLORO hydroCHLORO No 1{table QD hydroCHLOR thiazide thiazide t_in_th Othiazide 12.5 MG 12.5 MG e_morni 12.5 MG ng} Biotin Biotin No Biotin Melatonin Melatonin No Melatonin ER 10 MG ER 10 MG ER 10 MG Remicade Remicade No Remicade 100 MG 100 MG 100 MG Tylenol 325 Tylenol 325 No 1{table 6xD Tylenol MG MG t_as_ne 325 MG eded} Calcium Calcium No Calcium Lisinopril Lisinopril No 1{table QD Lisinopril 10 MG 10 MG t} 10 MG Simvastatin Simvastatin No Simvastati 20 MG 20 MG n 20 MG Metoprolol Metoprolol No QD Metoprolol Succinate Succinate Succinate ER 25 MG ER 25 MG ER 25 MG NovoFine NovoFine No QD NovoFine 32G X 6 MM 32G X 6 MM 32G X 6 MM busPIRone busPIRone No 1{table busPIRone HCl 5 MG HCl 5 MG t} HCl 5 MG Simvastatin Simvastatin No 1{table QD Simvastati 20 MG 20 MG t_in_th n 20 MG e_eveni ng} DULoxetine DULoxetine No DULoxetine HCl 60 MG HCl 60 MG HCl 60 MG clonazePAM clonazePAM No 1{table QD clonazePAM 1 MG 1 MG t} 1 MG Cymbalta 30 Cymbalta 30 No Cymbalta MG MG 30 MG Donepezil Donepezil No Donepezil HCl 5 MG HCl 5 MG HCl 5 MG Super B Super B No Super B Complex/C Complex/C Complex/C Fluticasone Fluticasone No Fluticason Propionate Propionate e 50 MCG/ACT 50 MCG/ACT Propionate 50 MCG/ACT Turmeric Turmeric No Turmeric Curcumin Curcumin Curcumin Clotrimazol Clotrimazol No Clotrimazo e 10 MG e 10 MG le 10 MG Memantine Memantine No Memantine HCl 10 MG HCl 10 MG HCl 10 MG Restasis Restasis No 1{drop_ BID Restasis 0.05 % 0.05 % into_af 0.05 % fected_ eye} Vitamin D3 Vitamin D3 No Vitamin D3 50,000 50,000 50,000 Folic Acid Folic Acid No 1{table QD Folic Acid 1 MG 1 MG t} 1 MG DULoxetine DULoxetine No DULoxetine HCl 30 MG HCl 30 MG HCl 30 MG Ibuprofen Ibuprofen No TID Ibuprofen 200 MG 200 MG 200 MG busPIRone busPIRone No busPIRone HCl 5 MG HCl 5 MG HCl 5 MG Montelukast Montelukast No Montelukas Sodium 10 Sodium 10 t Sodium MG MG 10 MG Diclofenac Diclofenac No Diclofenac Sodium 75 Sodium 75 Sodium 75 MG MG MG Zioptan Zioptan No 1{drop_ QD Zioptan 0.0015 % 0.0015 % into_af 0.0015 % fected_ eye_in_ the_eve mindy} Probiotic Probiotic No Probiotic Cyanocobala Cyanocobala No 1{ml} Cyanocobal min 1000 min 1000 carcamo 1000 MCG/ML MCG/ML MCG/ML Omeprazole Omeprazole No Omeprazole 40 MG 40 MG 40 MG Toujeo Max Toujeo Max No Toujeo Max SoloStar SoloStar SoloStar 300 UNIT/ML 300 UNIT/ML 300 UNIT/ML Gabapentin Gabapentin No Gabapentin 300 MG 300 MG 300 MG Stiolto Stiolto No 2{puffs QD Stiolto Respimat Respimat } Respimat 2.5mcg/2.5m 2.5mcg/2.5m 2.5mcg/2.5 cg cg mcg Oxybutynin Oxybutynin No 1{table BID Oxybutynin Chloride 5 Chloride 5 t} Chloride 5 MG MG MG Cymbalta 60 Cymbalta 60 No Cymbalta MG MG 60 MG hydroCHLORO hydroCHLORO No 1{table QD hydroCHLOR thiazide thiazide t_in_th Othiazide 12.5 MG 12.5 MG e_morni 12.5 MG ng} Biotin Biotin No Biotin Melatonin Melatonin No Melatonin ER 10 MG ER 10 MG ER 10 MG Remicade Remicade No Remicade 100 MG 100 MG 100 MG Tylenol 325 Tylenol 325 No 1{table 6xD Tylenol MG MG t_as_ne 325 MG eded} Calcium Calcium No Calcium Lisinopril Lisinopril No 1{table QD Lisinopril 10 MG 10 MG t} 10 MG Simvastatin Simvastatin No Simvastati 20 MG 20 MG n 20 MG Metoprolol Metoprolol No QD Metoprolol Succinate Succinate Succinate ER 25 MG ER 25 MG ER 25 MG NovoFine NovoFine No QD NovoFine 32G X 6 MM 32G X 6 MM 32G X 6 MM busPIRone busPIRone No 1{table busPIRone HCl 5 MG HCl 5 MG t} HCl 5 MG Simvastatin Simvastatin No 1{table QD Simvastati 20 MG 20 MG t_in_th n 20 MG e_eveni ng} DULoxetine DULoxetine No DULoxetine HCl 60 MG HCl 60 MG HCl 60 MG clonazePAM clonazePAM No 1{table QD clonazePAM 1 MG 1 MG t} 1 MG Cymbalta 30 Cymbalta 30 No Cymbalta MG MG 30 MG Clotrimazol Clotrimazol No Clotrimazo e 10 MG e 10 MG le 10 MG Memantine Memantine No Memantine HCl 10 MG HCl 10 MG HCl 10 MG Turmeric Turmeric No Turmeric Curcumin Curcumin Curcumin Simvastatin Simvastatin No Simvastati 20 MG 20 MG n 20 MG Tylenol 325 Tylenol 325 No 1{table 6xD Tylenol MG MG t_as_ne 325 MG eded} Calcium Calcium No Calcium Donepezil Donepezil No Donepezil HCl 5 MG HCl 5 MG HCl 5 MG Ibuprofen Ibuprofen No TID Ibuprofen 200 MG 200 MG 200 MG busPIRone busPIRone No busPIRone HCl 5 MG HCl 5 MG HCl 5 MG DULoxetine DULoxetine No DULoxetine HCl 60 MG HCl 60 MG HCl 60 MG Super B Super B No Super B Complex/C Complex/C Complex/C Fluticasone Fluticasone No Fluticason Propionate Propionate e 50 MCG/ACT 50 MCG/ACT Propionate 50 MCG/ACT Cyanocobala Cyanocobala No 1{ml} Cyanocobal min 1000 min 1000 carcamo 1000 MCG/ML MCG/ML MCG/ML Omeprazole Omeprazole No Omeprazole 40 MG 40 MG 40 MG Restasis Restasis No 1{drop_ BID Restasis 0.05 % 0.05 % into_af 0.05 % fected_ eye} Vitamin D3 Vitamin D3 No Vitamin D3 50,000 50,000 50,000 Folic Acid Folic Acid No 1{table QD Folic Acid 1 MG 1 MG t} 1 MG Gabapentin Gabapentin No Gabapentin 300 MG 300 MG 300 MG Diclofenac Diclofenac No Diclofenac Sodium 75 Sodium 75 Sodium 75 MG MG MG Zioptan Zioptan No 1{drop_ QD Zioptan 0.0015 % 0.0015 % into_af 0.0015 % fected_ eye_in_ the_eve mindy} Oxybutynin Oxybutynin No 1{table BID Oxybutynin Chloride 5 Chloride 5 t} Chloride 5 MG MG MG Metoprolol Metoprolol No QD Metoprolol Succinate Succinate Succinate ER 25 MG ER 25 MG ER 25 MG Cymbalta 60 Cymbalta 60 No Cymbalta MG MG 60 MG Remicade Remicade No Remicade 100 MG 100 MG 100 MG Biotin Biotin No Biotin Montelukast Montelukast No Montelukas Sodium 10 Sodium 10 t Sodium MG MG 10 MG Stiolto Stiolto No 2{puffs QD Stiolto Respimat Respimat } Respimat 2.5mcg/2.5m 2.5mcg/2.5m 2.5mcg/2.5 cg cg mcg Probiotic Probiotic No Probiotic DULoxetine DULoxetine No DULoxetine HCl 30 MG HCl 30 MG HCl 30 MG Lisinopril Lisinopril No 1{table QD Lisinopril 10 MG 10 MG t} 10 MG hydroCHLORO hydroCHLORO No 1{table QD hydroCHLOR thiazide thiazide t_in_th Othiazide 12.5 MG 12.5 MG e_morni 12.5 MG ng} Melatonin Melatonin No Melatonin ER 10 MG ER 10 MG ER 10 MG NovoFine NovoFine No QD NovoFine 32G X 6 MM 32G X 6 MM 32G X 6 MM busPIRone busPIRone No 1{table busPIRone HCl 5 MG HCl 5 MG t} HCl 5 MG Simvastatin Simvastatin No 1{table QD Simvastati 20 MG 20 MG t_in_th n 20 MG e_eveni ng} Toujeo Max Toujeo Max No Toujeo Max SoloStar SoloStar SoloStar 300 UNIT/ML 300 UNIT/ML 300 UNIT/ML clonazePAM clonazePAM No 1{table QD clonazePAM 1 MG 1 MG t} 1 MG Cymbalta 30 Cymbalta 30 No Cymbalta MG MG 30 MG Clotrimazol Clotrimazol No Clotrimazo e 10 MG e 10 MG le 10 MG Memantine Memantine No Memantine HCl 10 MG HCl 10 MG HCl 10 MG Simvastatin Simvastatin No Simvastati 20 MG 20 MG n 20 MG Tylenol 325 Tylenol 325 No 1{table 6xD Tylenol MG MG t_as_ne 325 MG eded} Calcium Calcium No Calcium Donepezil Donepezil No Donepezil HCl 5 MG HCl 5 MG HCl 5 MG Ibuprofen Ibuprofen No TID Ibuprofen 200 MG 200 MG 200 MG Folic Acid Folic Acid No 1{table QD Folic Acid 1 MG 1 MG t} 1 MG DULoxetine DULoxetine No DULoxetine HCl 60 MG HCl 60 MG HCl 60 MG Super B Super B No Super B Complex/C Complex/C Complex/C Fluticasone Fluticasone No Fluticason Propionate Propionate e 50 MCG/ACT 50 MCG/ACT Propionate 50 MCG/ACT Cyanocobala Cyanocobala No 1{ml} Cyanocobal min 1000 min 1000 carcamo 1000 MCG/ML MCG/ML MCG/ML Zioptan Zioptan No 1{drop_ QD Zioptan 0.0015 % 0.0015 % into_af 0.0015 % fected_ eye_in_ the_eve mindy} Restasis Restasis No 1{drop_ BID Restasis 0.05 % 0.05 % into_af 0.05 % fected_ eye} Vitamin D3 Vitamin D3 No Vitamin D3 50,000 50,000 50,000 Omeprazole Omeprazole No Omeprazole 40 MG 40 MG 40 MG Toujeo Max Toujeo Max No Toujeo Max SoloStar SoloStar SoloStar 300 UNIT/ML 300 UNIT/ML 300 UNIT/ML Diclofenac Diclofenac No Diclofenac Sodium 75 Sodium 75 Sodium 75 MG MG MG Gabapentin Gabapentin No Gabapentin 300 MG 300 MG 300 MG Stiolto Stiolto No 2{puffs QD Stiolto Respimat Respimat } Respimat 2.5mcg/2.5m 2.5mcg/2.5m 2.5mcg/2.5 cg cg mcg Metoprolol Metoprolol No QD Metoprolol Succinate Succinate Succinate ER 25 MG ER 25 MG ER 25 MG Cymbalta 60 Cymbalta 60 No Cymbalta MG MG 60 MG hydroCHLORO hydroCHLORO No 1{table QD hydroCHLOR thiazide thiazide t_in_th Othiazide 12.5 MG 12.5 MG e_morni 12.5 MG ng} Biotin Biotin No Biotin Montelukast Montelukast No Montelukas Sodium 10 Sodium 10 t Sodium MG MG 10 MG Remicade Remicade No Remicade 100 MG 100 MG 100 MG Probiotic Probiotic No Probiotic DULoxetine DULoxetine No DULoxetine HCl 30 MG HCl 30 MG HCl 30 MG Lisinopril Lisinopril No 1{table QD Lisinopril 10 MG 10 MG t} 10 MG Oxybutynin Oxybutynin No Oxybutynin Chloride 5 Chloride 5 Chloride 5 MG MG MG Melatonin Melatonin No Melatonin ER 10 MG ER 10 MG ER 10 MG NovoFine NovoFine No QD NovoFine 32G X 6 MM 32G X 6 MM 32G X 6 MM busPIRone busPIRone No busPIRone HCl 5 MG HCl 5 MG HCl 5 MG Simvastatin Simvastatin No 1{table QD Simvastati 20 MG 20 MG t_in_th n 20 MG e_eveni ng} Turmeric Turmeric No Turmeric Curcumin Curcumin Curcumin clonazePAM clonazePAM No 1{table QD clonazePAM 1 MG 1 MG t} 1 MG Cymbalta 30 Cymbalta 30 No Cymbalta MG MG 30 MG busPIRone busPIRone No 1{table busPIRone HCl 5 MG HCl 5 MG t} HCl 5 MG Metoprolol Metoprolol No QD Metoprolol Succinate Succinate Succinate ER 25 MG ER 25 MG ER 25 MG Super B Super B No Super B Complex/C Complex/C Complex/C Cymbalta 60 Cymbalta 60 No Cymbalta MG MG 60 MG DULoxetine DULoxetine No DULoxetine HCl 30 MG HCl 30 MG HCl 30 MG Omeprazole Omeprazole No Omeprazole 40 MG 40 MG 40 MG Vitamin D3 Vitamin D3 No Vitamin D3 50,000 50,000 50,000 Turmeric Turmeric No Turmeric Curcumin Curcumin Curcumin Memantine Memantine No Memantine HCl 10 MG HCl 10 MG HCl 10 MG Toujeo Max Toujeo Max No Toujeo Max SoloStar SoloStar SoloStar 300 UNIT/ML 300 UNIT/ML 300 UNIT/ML Immunizations Ordered Immunization Filled Immunization Date Status Commen ts Source Name Name [facility] 2020-02-03 Completed [facility] 09:05:00 - [facility] Sh[facility] 2020-02-03 Completed [facility] 09:05:00 - [facility]rix Sh[facility]rix 2020-02-03 Completed [facility] 09:05:00 - [facility]rix Sh[facility]rix 2020-02-03 Completed [facility] 09:05:00 - [facility]rix Sh[facility]rix 2020-02-03 Completed [facility] 09[facility]05:00 - [facility]rix Sh[facility]rix 2020-02-03 Completed [facility] 09:05:00 - [facility]rix Shingrix 2020-02-03 Completed [facility] 09:05:00 - [facility]rix Sh[facility]rix 2020-02-03 Completed [facility] 09[facility]05:00 - [facility] Shingrix Shingrix 2020-02-03 Completed [facility] 09:05:00 - [facility]rix Shingrix 2020-02-03 Completed [facility] 09[facility]05:00 - [facility]rix Shingrix 2020-02-03 Completed [facility] 09[facility]05:00 - [facility] Sh[facility]rix Shingrix 2020-02-03 Completed [facility] 09:05:00 - [facility]rix Shingrix 2020-02-03 Completed [facility] 09:05:00 - [facility]rix Shingrix 2020-02-03 Completed [facility] 09[facility]05:00 - [facility]rix Shingrix 2020-02-03 Completed [facility] 09:05:00 - [facility] Sh[facility]rix Shingrix 2020-02-03 Completed [facility] 09[facility]05:00 - [facility] Shingrix Shingrix 2020-02-03 Completed [facility] 09:05:00 - [facility] Shingrix Shingrix 2020-02-03 Completed [facility] 09:05:00 - [facility] Shingrix Shingrix 2020-02-03 Completed [facility] 09:05:00 - [facility] Shingrix Shingrix 2020-02-03 Completed [facility] 09:05:00 - [facility] Shingrix Shingrix 2020-02-03 Completed [facility] 09:05:00 - [facility] Shingrix Shingrix 2020-02-03 Completed [facility] 09:05:00 - [facility] Shingrix Shingrix 2020-02-03 Completed [facility] 09:05:00 - [facility] Shingrix Shingrix 2020-02-03 Completed [facility] 09:05:00 - [facility] Shingrix Shingrix 2020-02-03 Completed [facility] 09[facility]05:00 - [facility] Shingrix Shingrix 2020-02-03 Completed [facility] 09:05:00 - [facility] Shingrix Shingrix 2020-02-03 Completed [facility] 09:05:00 - [facility] Shingrix Shingrix 2020-02-03 Completed [facility] 09:05:00 - [facility] Shingrix Shingrix 2020-02-03 Completed [facility] 09:05:00 - [facility] Shingrix Shingrix 2020-02-03 Completed [facility] 09:05:00 - [facility] Shingrix Shingrix 2020-02-03 Completed [facility] 09:05:00 - [facility] Shingrix Shingrix 2020-02-03 Completed [facility] 09:05:00 - [facility] Shingrix Shingrix 2020-02-03 Completed [facility] 09:05:00 - [facility] Shingrix Shingrix 2020-02-03 Completed [facility] 09:05:00 - [facility] Shingrix Shingrix 2020-02-03 Completed [facility] 09:05:00 - [facility] Shingrix Shingrix 2020-02-03 Completed [facility] 09:05:00 - [facility] Shingrix Shingrix 2020-02-03 Completed [facility] 09:05:00 - [facility] Shingrix Shingrix 2020-02-03 Completed [facility] 09:05:00 - [facility] Shingrix Shingrix 2020-02-03 Completed [facility] 09:05:00 - [facility] Shingrix Shingrix 2020-02-03 Completed [facility] 09:05:00 - [facility] Shingrix Shingrix 2020-02-03 Completed [facility] 09:05:00 - [facility] Shingrix Shingrix 2020-02-03 Completed [facility] 09:05:00 - [facility] Shingrix Shingrix 2020-02-03 Completed [facility] 09:05:00 - [facility] Shingrix Shingrix 2020-02-03 Completed [facility] 09:05:00 - [facility] Shingrix Shingrix 2020-02-03 Completed [facility] 09:05:00 - [facility] Shingrix Shingrix 2020-02-03 Completed [facility] 09:05:00 [facility] Pneumovax (PPSV23) Pneumovax (PPSV23) 2020-02-03 Completed [facility] 09:04:00 [facility] Pneumovax (PPSV23) Pneumovax (PPSV23) 2020-02-03 Completed [facility] 09:04:00 [facility] Pneumovax (PPSV23) Pneumovax (PPSV23) 2020-02-03 Completed [facility] 09:04:00 [facility] Pneumovax (PPSV23) Pneumovax (PPSV23) 2020-02-03 Completed [facility] 09:04:00 [facility] Pneumovax (PPSV23) Pneumovax (PPSV23) 2020-02-03 Completed [facility] 09:04:00 [facility] Pneumovax (PPSV23) Pneumovax (PPSV23) 2020-02-03 Completed [facility] 09:04:00 [facility] Pneumovax (PPSV23) Pneumovax (PPSV23) 2020-02-03 Completed [facility] 09:04:00 [facility] Pneumovax (PPSV23) Pneumovax (PPSV23) 2020-02-03 Completed [facility] 09:04:00 [facility] Pneumovax (PPSV23) Pneumovax (PPSV23) 2020-02-03 Completed [facility] 09:04:00 [facility] Pneumovax (PPSV23) Pneumovax (PPSV23) 2020-02-03 Completed [facility] 09:04:00 [facility] Pneumovax (PPSV23) Pneumovax (PPSV23) 2020-02-03 Completed [facility] 09:04:00 [facility] Pneumovax (PPSV23) Pneumovax (PPSV23) 2020-02-03 Completed [facility] 09:04:00 [facility] Pneumovax (PPSV23) Pneumovax (PPSV23) 2020-02-03 Completed [facility] 09:04:00 [facility] Pneumovax (PPSV23) Pneumovax (PPSV23) 2020-02-03 Completed [facility] 09:04:00 - [facility] Pneumovax (PPSV23) Pneumovax (PPSV23) 2020-02-03 Completed [facility] 09:04:00 [facility] Pneumovax (PPSV23) Pneumovax (PPSV23) 2020-02-03 Completed [facility] 09:04:00 [facility] Pneumovax (PPSV23) Pneumovax (PPSV23) 2020-02-03 Completed [facility] 09:04:00 [facility] Pneumovax (PPSV23) Pneumovax (PPSV23) 2020-02-03 Completed [facility] 09:04:00 [facility] Pneumovax (PPSV23) Pneumovax (PPSV23) 2020-02-03 Completed [facility] 09:04:00 [facility] Pneumovax (PPSV23) Pneumovax (PPSV23) 2020-02-03 Completed [facility] 09:04:00 [facility] Pneumovax (PPSV23) Pneumovax (PPSV23) 2020-02-03 Completed [facility] 09:04:00 [facility] Pneumovax (PPSV23) Pneumovax (PPSV23) 2020-02-03 Completed [facility] 09:04:00 - [facility] Pneumovax (PPSV23) Pneumovax (PPSV23) 2020-02-03 Completed [facility] 09:04:00 [facility] Pneumovax (PPSV23) Pneumovax (PPSV23) 2020-02-03 Completed [facility] 09:04:00 - [facility] Pneumovax (PPSV23) Pneumovax (PPSV23) 2020-02-03 Completed [facility] 09:04:00 - [facility] Pneumovax (PPSV23) Pneumovax (PPSV23) 2020-02-03 Completed [facility] 09:04:00 - [facility] Pneumovax (PPSV23) Pneumovax (PPSV23) 2020-02-03 Completed [facility] 09:04:00 - [facility] Pneumovax (PPSV23) Pneumovax (PPSV23) 2020-02-03 Completed [facility] 09:04:00 - [facility] Pneumovax (PPSV23) Pneumovax (PPSV23) 2020-02-03 Completed [facility] 09:04:00 [facility] Pneumovax (PPSV23) Pneumovax (PPSV23) 2020-02-03 Completed [facility] 09:04:00 [facility] Pneumovax (PPSV23) Pneumovax (PPSV23) 2020-02-03 Completed [facility] 09:04:00 - [facility] Pneumovax (PPSV23) Pneumovax (PPSV23) 2020-02-03 Completed [facility] 09:04:00 - [facility] Pneumovax (PPSV23) Pneumovax (PPSV23) 2020-02-03 Completed [facility] 09:04:00 [facility] Pneumovax (PPSV23) Pneumovax (PPSV23) 2020-02-03 Completed [facility] 09:04:00 [facility] Pneumovax (PPSV23) Pneumovax (PPSV23) 2020-02-03 Completed [facility] 09:04:00 [facility] Pneumovax (PPSV23) Pneumovax (PPSV23) 2020-02-03 Completed [facility] 09:04:00 - [facility] Pneumovax (PPSV23) Pneumovax (PPSV23) 2020-02-03 Completed [facility] 09:04:00 [facility] Pneumovax (PPSV23) Pneumovax (PPSV23) 2020-02-03 Completed [facility] 09:04:00 [facility] Pneumovax (PPSV23) Pneumovax (PPSV23) 2020-02-03 Completed [facility] 09:04:00 - [facility] Pneumovax (PPSV23) Pneumovax (PPSV23) 2020-02-03 Completed [facility] 09:04:00 [facility] Pneumovax (PPSV23) Pneumovax (PPSV23) 2020-02-03 Completed [facility] 09:04:00 [facility] Pneumovax (PPSV23) Pneumovax (PPSV23) 2020-02-03 Completed [facility] 09:04:00 [facility] Pneumovax (PPSV23) Pneumovax (PPSV23) 2020-02-03 Completed [facility] 09:04:00 [facility] Pneumovax (PPSV23) Pneumovax (PPSV23) 2020-02-03 Completed [facility] 09:04:00 [facility] Pneumovax (PPSV23) Pneumovax (PPSV23) 2020-02-03 Completed [facility] 09:04:00 [facility] Pneumovax (PPSV23) Pneumovax (PPSV23) 2020-02-03 Completed [facility] 09:04:00 - [facility] Td Td 2019-11-26 Completed [facility] 10:08: [facility] Td Td 2019-11-26 Completed [facility] 10:08:00 [facility] Td Td 2019-11-26 Completed [facility] 10:08: [facility] Td Td 2019-11-26 Completed [facility] 10:08: [facility] Td Td 2019-11-26 Completed [facility] 10:08: [facility] Td Td 2019-11-26 Completed [facility] 10:08:00 - [facility] Td Td 2019-11-26 Completed [facility] 10:08:00 - [facility] Td Td 2019-11-26 Completed [facility] 10:08:00 - [facility] Td Td 2019-11-26 Completed [facility] 10[facility]08: - [facility] Td Td 2019-11-26 Completed [facility] 10:08: - [facility] Td Td 2019-11-26 Completed [facility] 10:08: - [facility] Td Td 2019-11-26 Completed [facility] 10:08: - [facility] Td Td 2019-11-26 Completed [facility] 10:08: - [facility] Td Td 2019-11-26 Completed [facility] 10:08: - [facility] Td Td 2019-11-26 Completed [facility] 10:: - [facility] Td Td 2019-11-26 Completed [facility] 10:08: - [facility] Td Td 2019-11-26 Completed [facility] 10:08: - [facility] Td Td 2019-11-26 Completed [facility] 10:: - [facility] Td Td 2019-11-26 Completed [facility] 10:: - [facility] Td Td 2019-11-26 Completed [facility] 10:: - [facility] Td Td 2019-11-26 Completed [facility] 10:08: - [facility] Td Td 2019-11-26 Completed [facility] 10:08: - [facility] Td Td 2019-11-26 Completed [facility] 10:08: - [facility] Td Td 2019-11-26 Completed [facility] 10:08: - [facility] Td Td 2019-11-26 Completed [facility] 10:08: - [facility] Td Td 2019-11-26 Completed [facility] 10:08: - [facility] Td Td 2019-11-26 Completed [facility] 10:08: - [facility] Td Td 2019-11-26 Completed [facility] 10:08: - [facility] Td Td 2019-11-26 Completed [facility] 10:08:00 - [facility] Td Td 2019-11-26 Completed [facility] 10:08:00 - [facility] Td Td 2019-11-26 Completed [facility] 10:08:00 - [facility] Td Td 2019-11-26 Completed [facility] 10:08:00 - [facility] Td Td 2019-11-26 Completed [facility] 10:08:00 - [facility] Td Td 2019-11-26 Completed [facility] 10:08:00 - [facility] Td Td 2019-11-26 Completed [facility] 10:08: - [facility] Td Td 2019-11-26 Completed [facility] 10:08: - [facility] Td Td 2019-11-26 Completed [facility] 10:08: - [facility] Td Td 2019-11-26 Completed [facility] 10:08: - [facility] Td Td 2019-11-26 Completed [facility] 10:08: - [facility] Td Td 2019-11-26 Completed [facility] 10:08: - [facility] Td Td 2019-11-26 Completed [facility] 10:08:00 - [facility] Td Td 2019-11-26 Completed [facility] 10:08:00 - [facility] Td Td 2019-11-26 Completed [facility] 10:08: - [facility] Td Td 2019-11-26 Completed [facility] 10:08:00 - [facility] Td Td 2019-11-26 Completed [facility] 10:08:00 - [facility] Td Td 2019-11-26 Completed [facility] 10:08:00 - [facility] Td Td 2019-11-26 Completed [facility] 00:00:00 - [facility] FluAD FluAD 2019-01-26 Completed [facility] 14:49:00 - [facility] FluAD FluAD 2019-01-26 Completed [facility] 14:49:00 - [facility] FluAD FluAD 2019-01-26 Completed [facility] 14:49:00 - [facility] FluAD FluAD 2019-01-26 Completed [facility] 14:49:00 - [facility] FluAD FluAD 2019-01-26 Completed [facility] 14:49:00 - [facility] FluAD FluAD 2019-01-26 Completed [facility] 14:49:00 - [facility] FluAD FluAD 2019-01-26 Completed [facility] 14:49:00 - [facility] FluAD FluAD 2019-01-26 Completed [facility] 14:49:00 - [facility] FluAD FluAD 2019-01-26 Completed [facility] 14:49:00 - [facility] FluAD FluAD 2019-01-26 Completed [facility] 14:49:00 - [facility] FluAD FluAD 2019-01-26 Completed [facility] 14:49:00 - [facility] FluAD FluAD 2019-01-26 Completed [facility] 14:49:00 - [facility] FluAD FluAD 2019-01-26 Completed [facility] 14:49:00 - [facility] FluAD FluAD 2019-01-26 Completed [facility] 14:49:00 - [facility] FluAD FluAD 2019-01-26 Completed [facility] 14:49:00 - [facility] FluAD FluAD 2019-01-26 Completed [facility] 14:49:00 - [facility] FluAD FluAD 2019-01-26 Completed [facility] 14:49:00 - [facility] FluAD FluAD 2019-01-26 Completed [facility] 14:49:00 - [facility] FluAD FluAD 2019-01-26 Completed [facility] 14:49:00 - [facility] FluAD FluAD 2019-01-26 Completed [facility] 14:49:00 - [facility] FluAD FluAD 2019-01-26 Completed [facility] 14[facility]49:00 - [facility] [place] [facility] FluAD 2019-01-26 [facility] - [facility] [place] FluAD FluAD 2019-01-26 Completed [facility] 14:49:00 - [facility] [place] FluAD FluAD 2019-01-26 [facility]pleted [facility] 14[facility]49:00 - [facility] [place] FluAD FluAD 2019-01-26 Completed [facility] 14[facility]49:00 - [facility] [place] FluAD FluAD 2019-01-26 Completed [facility] 14:49:00 - [facility] [place] FluAD FluAD 2019-01-26 Completed [facility] 14[facility]49:00 - [facility] [place] FluAD FluAD 2019-01-26 Completed [facility] 14:49:00 - [facility] [place] FluAD FluAD 2019-01-26 Completed [facility] 14[facility]49:00 - [facility] [place] FluAD FluAD 2019-01-26 Completed [facility] 14[facility]49:00 - [facility] [place] FluAD FluAD 2019-01-26 Completed [facility] 14:49:00 - [facility] [place] FluAD FluAD 2019-01-26 Completed [facility] 14[facility]49:00 - [facility] [place] FluAD FluAD 2019-01-26 Completed [facility] 14:49:00 - [facility] [place] FluAD FluAD 2019-01-26 Completed [facility] 14:49:00 - [facility] [place] FluAD FluAD 2019-01-26 Completed [facility] 14:49:00 - [facility] [place] FluAD FluAD 2019-01-26 Completed [facility] 14:49:00 - [facility] [place] FluAD FluAD 2019-01-26 Completed [facility] 14:49:00 - [facility] [place] FluAD FluAD 2019-01-26 Completed [facility] 14:49:00 - [facility] [place] FluAD FluAD 2019-01-26 Completed [facility] 14[facility]49:00 - [facility] [place] FluAD FluAD 2019-01-26 Completed [facility] 14:49:00 - [facility] [place] FluAD FluAD 2019-01-26 Completed [facility] 14:49:00 - [facility] [place] FluAD FluAD 2019-01-26 Completed [facility] 14:49:00 - [facility] [place] FluAD FluAD 2019-01-26 Completed [facility] 14:49:00 - [facility] [place] FluAD FluAD 2019-01-26 Completed [facility] 14:49:00 - [facility] [place] FluAD FluAD 2019-01-26 Completed [facility] 14:49:00 - [facility] [place] FluAD FluAD 2019-01-26 Completed [facility] 14:49:00 - [facility] [place] FluAD FluAD 2019-01-26 Completed [facility] 00:00:00 - [facility] [place] Vital Signs Vital Name Observation Time Observation Value Comments Source height 2021-12-28 08:40:00 59.5 [in_i] Common [facility] weight 2021-12-28 08:40:00 150.8 [lb_av] Common [facility] temperature 2021-12-28 08:40:00 96.7 [degF] Common [facility] bmi 2021-12-28 08:40:00 29.94 kg/m2 [facility] oximetry 2021-12-28 08:40:00 97 % [facility] respiratory rate 2021-12-28 08:40:00 18 /min Comm [facility] blood pressure 2021-12-28 08:40:00 134 mm[Hg] Common [facility] - systolic [facility] [place] blood pressure 2021-12-28 08:40:00 82 mm[Hg] Common [facility] - diastolic [facility] [place] height 2021-12-24 14:30:00 59.5 [in_i] [facility] weight 2021-12-24 14:30:00 153 [lb_av] [facility] temperature 2021-12-24 14:30:00 98 [degF] Common [facility] bmi 2021-12-24 14:30:00 30.38 kg/m2 [facility] oximetry 2021-12-24 14:30:00 98 % [facility] respiratory rate 2021-12-24 14:30:00 16 /min Comm on [facility] blood pressure 2021-12-24 14:30:00 130 mm[Hg] Common [facility] - systolic [facility] blood pressure 2021-12-24 14:30:00 60 mm[Hg] Common [facility] - diastolic [facility] [place] Body height 2021-12-18 19:01:00 160 cm [facility] Body weight 2021-12-18 19:01:00 69.4 kg [facility] BMI 2021-12-18 19:01:00 27.10 kg/m2 [facility] height 2021-12-05 10:30:00 59.5 [in_i] Common [facility] weight 2021-12-05 10:30:00 152 [lb_av] Common [facility] temperature 2021-12-05 10:30:00 96.7 [degF] Common [facility] bmi 2021-12-05 10:30:00 30.18 kg/m2 [facility] oximetry 2021-12-05 10:30:00 97 % [facility] respiratory rate 2021-12-05 10:30:00 20 /min Comm on [facility] blood pressure 2021-12-05 10:30:00 138 mm[Hg] Common [facility] - systolic [facility] [place] blood pressure 2021-12-05 10:30:00 60 mm[Hg] Common [facility] - diastolic [facility] [place] height 2021-11-15 13:00:00 59.5 [in_i] [facility] weight 2021-11-15 13:00:00 151 [lb_av] Common [facility] temperature 2021-11-15 13:00:00 97.3 [degF] Common [facility] bmi 2021-11-15 13:00:00 29.98 kg/m2 [facility] oximetry 2021-11-15 13:00:00 98 % [facility] respiratory rate 2021-11-15 13:00:00 23 /min Comm on [facility] blood pressure 2021-11-15 13:00:00 135 mm[Hg] Common [facility] - systolic [facility] [place] blood pressure 2021-11-15 13:00:00 63 mm[Hg] Common [facility] - diastolic [facility] [place] height 2021-10-25 14:00:00 62.50 [in_i] [facility] [place] weight 2021-10-25 14:00:00 151.5 [lb_av] [facility] temperature 2021-10-25 14:00:00 97.6 [degF] [facility] bmi 2021-10-25 14:00:00 27.27 kg/m2 [facility] oximetry 2021-10-25 14:00:00 99 % [facility] respiratory rate 2021-10-25 14:00:00 18 /min Comm on [facility] blood pressure 2021-10-25 14:00:00 114 mm[Hg] [facility] - systolic [facility] [place] blood pressure 2021-10-25 14:00:00 56 mm[Hg] [facility] - diastolic [facility] [place] height 2021-10-17 09:30:00 62.50 [in_i] [facility] weight 2021-10-17 09:30:00 154 [lb_av] [facility] temperature 2021-10-17 09:30:00 98.6 [degF] [facility] bmi 2021-10-17 09:30:00 27.72 kg/m2 [facility] height 2021-10-17 10:00:00 62.50 [in_i] [facility] weight 2021-10-17 10:00:00 154 [lb_av] [facility] bmi 2021-10-17 10:00:00 27.72 kg/m2 [facility] height 2021-09-14 09:00:00 62.50 [in_i] [facility] [place] weight 2021-09-14 09:00:00 152 [lb_av] [facility] temperature 2021-09-14 09:00:00 97.3 [degF] Common [facility] bmi 2021-09-14 09:00:00 27.36 kg/m2 [facility] oximetry 2021-09-14 09:00:00 98 % [facility] respiratory rate 2021-09-14 09:00:00 19 /min Comm on [facility] blood pressure 2021-09-14 09:00:00 130 mm[Hg] Common [facility] - systolic [facility] blood pressure 2021-09-14 09:00:00 80 mm[Hg] Common [facility] - diastolic [facility] height 2021-03-22 09:40:00 62.50 [in_i] [facility] weight 2021-03-22 09:40:00 152 [lb_av] [facility] temperature 2021-03-22 09:40:00 97.3 [degF] Common [facility] bmi 2021-03-22 09:40:00 27.36 kg/m2 [facility] oximetry 2021-03-22 09:40:00 97 % [facility] blood pressure 2021-03-22 09:40:00 130 mm[Hg] Common [facility] - systolic [facility] blood pressure 2021-03-22 09:40:00 70 mm[Hg] [facility] - diastolic [facility] [place] Systolic blood 2021-03-06 20:53:00 142 mm[Hg] Univer sity of pressure [facility] Diastolic blood 2021-03-06 20:53:00 81 mm[Hg] Unive rsity of pressure [facility] Heart rate 2021-03-06 20:53:00 59 /min [facility] Body height 2021-03-06 20:53:00 160 cm [facility] Body weight 2021-03-06 20:53:00 68.221 kg [facility] BMI 2021-03-06 20:53:00 26.64 kg/m2 [facility] Height 2022-09-23 17:31:00 160.02 cm [facility] Weight 2022-09-23 17:31:00 [facility] [place] BMI Calculated 2022-09-23 17:31:00 [facility] [place] Height 2022-08-05 16:00:00 160.02 cm [facility] Weight 2022-08-05 16:00:00 [facility] [place] BMI Calculated 2022-08-05 16:00:00 [facility] [place] Procedures Procedure Date / Time Performing Clinician Source Performed Measurement of post-voiding 2022-09-23 17:28:00 [facility] residual urine and/or bladder capacity by ultrasound, non-imaging Cystourethroscopy (separate 2022-05-06 17:44:00 [facility] procedure) NM BRAIN SPECT W I 123 2021-09-26 20:20:00 [facility] DATSCAIDEE Plan of Care Planned Activity Planned Date Details Comments Source Future Scheduled 2029-11-25 DTAP/TDAP/TD VACCINES [facility] 00:00:00 (2 - Td or Tdap) [code Medic al Center = DTAP/TDAP/TD VACCINES (2 - Td or Tdap)] Future Scheduled 2029-11-25 DTAP/TDAP/TD VACCINES [facility] 00:00:00 (2 - Td or Tdap) [code Medic al Center = DTAP/TDAP/TD VACCINES (2 - Td or Tdap)] Future Scheduled 2029-11-25 DTAP/TDAP/TD VACCINES [facility] 00:00:00 (2 - Td or Tdap) [code Medic al Center = DTAP/TDAP/TD VACCINES (2 - Td or Tdap)] Future Scheduled 2029-11-25 DTAP/TDAP/TD VACCINES [facility] 00:00:00 (2 - Td or Tdap) [code Medic al Center = DTAP/TDAP/TD VACCINES (2 - Td or Tdap)] Future Scheduled 2029-11-25 DTAP/TDAP/TD VACCINES [facility] 00:00:00 (2 - Td or Tdap) [code Medic al Center = DTAP/TDAP/TD VACCINES (2 - Td or Tdap)] Future Scheduled 2029-11-25 DTAP/TDAP/TD VACCINES [facility] 00:00:00 (2 - Td or Tdap) [code Medic al Center = DTAP/TDAP/TD VACCINES (2 - Td or Tdap)] Future Scheduled 2022-12-13 Influenza Vaccine (#1) [facility] 00:00[facility]00 [code = Influenza Medical Ce nter Vaccine (#1)] Future Scheduled 2022-12-[address] [facility] 00:00:00 (Season Ended) [code = Medic al Center INFLUENZA VACCINE (Season Ended)] Future Scheduled 2022-10-02 Hepatitis C screening [facility] Test 02:53:48 (procedure) [code = [id number]] Future Scheduled 2022-10-02 SHINGLES VACCINES (1 Met [facility] Test 02:53:48 of 2) [code = SHINGLES VACCINES (1 of 2)] Future Scheduled 2022-10-02 COVID-19 VACCINE (3 - [facility] 02:53:48 Moderna series) [code = COVID-19 VACCINE (3 - Moderna series)] Future Scheduled 2022-10-02 65+ [facility]CCAL [facility] 02:53:48 VACCINE (2 - PCV) [code = 65+ PNEUMOCOCCAL VACCINE (2 - PCV)] Future Scheduled 2022-10-02 INFLUENZA VACCINE [facility] Test 02:53:48 [code = INFLUENZA VACCINE] Future Scheduled 2022-07-17 Hepatitis C screening [facility] Test 02:57:13 (procedure) [code = [id number]] Future Scheduled 2022-07-17 SHINGLES VACCINES (1 Met [facility] Test 02:57:13 of 2) [code = SHINGLES VACCINES (1 of 2)] Future Scheduled 2022-07-17 COVID-19 VACCINE (3 - [facility] 02:57:13 Booster for Moderna series) [code = COVID-19 VACCINE (3 - Booster for Moderna series)] Future Scheduled 2022-07-17 65+ [facility]OCCAL [facility] 02:57:13 VACCINE (2 - PCV) [code = 65+ PNEUMOCOCCAL VACCINE (2 - PCV)] Future Scheduled 2022-07-17 INFLUENZA VACCINE [facility] Test 02:57:13 [code = INFLUENZA VACCINE] Future Scheduled 2022-04-[address] [facility] Test 00:00:00 (12+) [code = Medical Center DEPRESSION SCREENING (12+)] Future Scheduled 2022-04-14 FALLS RISK SCREENING [facility] Test 00:00:00 [code = FALLS RISK Medical C enter SCREENING] Future Scheduled 2022-04-[address] [facility] Test 00:00:00 (12+) [code = Medical Center DEPRESSION SCREENING (12+)] Future Scheduled 2022-04-14 F[address]S RISK SCREENING [facility] Test 00:00:00 [code = FALLS RISK Medical C enter SCREENING] Future Scheduled 2022-04-[address] [facility] Test 00:00:00 (12+) [code = Medical Center DEPRESSION SCREENING (12+)] Future Scheduled 2022-04-14 F[address] RISK SCREENING [facility] Test 00:00:00 [code = FALLS RISK Medical C enter SCREENING] Future Scheduled 2022-03-27 Hepatitis C screening [facility] Test 02:52:41 (procedure) [code = [id number]] Future Scheduled 2022-03-27 SHINGLES VACCINES (1 Met [facility] Test 02:52:41 of 2) [code = SHINGLES VACCINES (1 of 2)] Future Scheduled 2022-03-27 COVID-19 VACCINE (3 - Me [facility] Test 02:52:41 Booster for Moderna series) [code = COVID-19 VACCINE (3 - Booster for Moderna series)] Future Scheduled 2022-03-27 65+ [facility]OCOCCAL [facility] 02:52:41 VACCINE (2 - PCV) [code = 65+ PNEUMOCOCCAL VACCINE (2 - PCV)] Future Scheduled 2022-03-27 INFLUENZA VACCINE [facility] Test 02:52:41 [code = INFLUENZA VACCINE] Future Scheduled 2022-03-05 HEPATITIS B VACCINES Met [facility] Test 08:59:40 (1 of 3 - 3-dose series) [code = HEPATITIS B VACCINES (1 of 3 - 3-dose series)] Future Scheduled 2022-03-05 Hepatitis C screening [facility] Test 08:59:40 (procedure) [code = [id number]] Future Scheduled 2022-03-05 SHINGLES VACCINES (1 Met [facility] Test 08:59:40 of 2) [code = SHINGLES VACCINES (1 of 2)] Future Scheduled 2022-03-05 COVID-19 VACCINE ([facility] - [facility] 08:59:40 Booster for Moderna series) [code = COVID-19 VACCINE (3 - Booster for Moderna series)] Future Scheduled 2022-03-05 65+ [facility]OCOCCAL [facility] 08:59:40 VACCINE (2 - PCV) [code = 65+ PNEUMOCOCCAL VACCINE (2 - PCV)] Future Scheduled 2022-03-05 [facility]UENZA VACCINE [facility] 08:59:40 [code = INFLUENZA VACCINE] Future Scheduled 2022-03-05 HEPATITIS B VACCINES Met [facility] Test 08:59:40 (1 of 3 - 3-dose series) [code = HEPATITIS B VACCINES (1 of 3 - 3-dose series)] Future Scheduled 2022-03-05 Hepatitis C screening [facility] Test 08:59:40 (procedure) [code = [id number]] Future Scheduled 2022-03-05 SHINGLES VACCINES (1 Met [facility] Test 08:59:40 of 2) [code = SHINGLES VACCINES (1 of 2)] Future Scheduled 2022-03-05 COVID-19 VACCINE (3 - [facility] 08:59:40 Booster for Moderna series) [code = COVID-19 VACCINE (3 - Booster for Moderna series)] Future Scheduled 2022-03-05 65+ [facility]OCOCCAL [facility] 08:59:40 VACCINE (2 - PCV) [code = 65+ PNEUMOCOCCAL VACCINE (2 - PCV)] Future Scheduled 2022-03-05 [facility]FLUENZA VACCINE [facility] Test 08:59:40 [code = INFLUENZA VACCINE] Future Scheduled 2021-12-18 HEPATITIS B VACCINES Met [facility] Test 13:43:12 (1 of 3 - 3-dose series) [code = HEPATITIS B VACCINES (1 of 3 - 3-dose series)] Future Scheduled 2021-12-18 Hepatitis C screening [facility] Test 13:43:12 (procedure) [code = [id number]] Future Scheduled 2021-12-18 SHINGLES VACCINES (1 Met [facility] Test 13:43:12 of 2) [code = SHINGLES VACCINES (1 of 2)] Future Scheduled 2021-12-18 [facility] 13:43:12 Booster for Moderna series) [code = COVID-19 VACCINE (3 - Booster for Moderna series)] Future Scheduled 2021-12-18 65[facility] 13:43:12 VACCINE (2 - PCV) [code = 65+ PNEUMOCOCCAL VACCINE (2 - PCV)] Future Scheduled 2021-12-18 INFLUENZA VACCINE [facility] Test 13:43:12 [code = INFLUENZA VACCINE] Future Scheduled 2021-12-13 INFLUENZA VACCINE (#1) [facility] 00:00:00 [code = INFLUENZA Medical Ce nter VACCINE (#1)] Future Scheduled 2021-12-13 INFLUENZA VACCINE (#1) [facility] 00:00:00 [code = INFLUENZA Medical Ce nter VACCINE (#1)] Future Scheduled 2021-12-13 INFLUENZA VACCINE (#1) [facility] 00:00:00 [code = INFLUENZA Medical Ce nter VACCINE (#1)] Future Scheduled 2021-12-13 INFLUENZA VACCINE (#1) [facility] 00:00:00 [code = INFLUENZA Medical Ce nter VACCINE (#1)] Future Scheduled 2021-04-[address] [facility] Test 00:00:00 (12+) [code = Medical Center DEPRESSION SCREENING (12+)] Future Scheduled 2021-04-14 F[address]S [address]K SCREENING [facility] Test 00:00:00 [code = FALLS RISK Medical C enter SCREENING] Future Scheduled 2021-04-[address] [facility] Test 00:00:00 (12+) [code = Medical Center DEPRESSION SCREENING (12+)] Future Scheduled 2021-04-14 F[address]S RISK SCREENING [facility] Test 00:00:00 [code = FALLS RISK Medical C enter SCREENING] Future Scheduled 2021-04-[address] [facility] Test 00:00:00 (12+) [code = Medical Center DEPRESSION SCREENING (12+)] Future Scheduled 2021-04-14 F[address]K SCREENING [facility] Test 00:00:00 [code = FALLS RISK Medical C enter SCREENING] Future Scheduled 2021-02-02 PNEUMOCOCCAL 65+ [facility] Test 00:00:00 (2 - PCV) [code = Medical Ce nter PNEUMOCOCCAL 65+ YRS (2 - PCV)] Future Scheduled 2021-02-02 PNEUMOCOCCAL 65+ [facility]RS [facility] Test 00:00:00 (2 - PCV) [code = Medical Ce nter PNEUMOCOCCAL 65+ YRS (2 - PCV)] Future Scheduled 2021-02-02 PNEUMOCOCCAL 65+ [facility]RS [facility] Test 00:00:00 (2 - PCV) [code = Medical Ce nter PNEUMOCOCCAL 65+ YRS (2 - PCV)] Future Scheduled 2008-12-[address] [facility] 00:00:00 WELLNESS (YEAR 2 or Medical Center FIRST YEAR if no IPPE) [code = MEDICARE ANNUAL WELLNESS (YEAR 2 or FIRST YEAR if no IPPE)] Future Scheduled 2008-12-[address] [facility] 00:00:00 WELLNESS (YEAR 2 or Medical Center FIRST YEAR if no IPPE) [code = MEDICARE ANNUAL WELLNESS (YEAR 2 or FIRST YEAR if no IPPE)] Future Scheduled 2008-12-[address] [facility] 00:00:00 WELLNESS (YEAR 2 or Medical Center FIRST YEAR if no IPPE) [code = MEDICARE ANNUAL WELLNESS (YEAR 2 or FIRST YEAR if no IPPE)] Future Scheduled 2008-12-[address] [facility] 00:00:00 WELLNESS (YEAR 2 or Medical Center FIRST YEAR if no IPPE) [code = MEDICARE ANNUAL WELLNESS (YEAR 2 or FIRST YEAR if no IPPE)] Future Scheduled 2008-12-[address] [facility] 00:00:00 WELLNESS (YEAR 2 or Medical Center FIRST YEAR if no IPPE) [code = MEDICARE ANNUAL WELLNESS (YEAR 2 or FIRST YEAR if no IPPE)] Future Scheduled 2008-12-[address] [facility] 00:00:00 WELLNESS (YEAR 2 or Medical Center FIRST YEAR if no IPPE) [code = MEDICARE ANNUAL WELLNESS (YEAR 2 or FIRST YEAR if no IPPE)] Future Scheduled 1992 SHINGLES VACCINES ([address] [facility] 00:00:00 of 2) [code = SHINGLES Medic al Center VACCINES (1 of 2)] Future Scheduled 1992 SHINGLES VACCINES ([address] [facility] 00:00:00 of 2) [code = SHINGLES Medic al Center VACCINES (1 of 2)] Future Scheduled 1992 SHINGLES VACCINES ([address] [facility] 00:00:00 of 2) [code = SHINGLES Medic al Center VACCINES (1 of 2)] Future Scheduled 1961 SHINGLES VACCINES ([address] [facility] 00:00:00 of 2) [code = SHINGLES Medic al Center VACCINES (1 of 2)] Future Scheduled 1961 SHINGLES VACCINES ([address] [facility] 00:00:00 of 2) [code = SHINGLES Medic al Center VACCINES (1 of 2)] Future Scheduled 1961 SHINGLES VACCINES ([address] [facility] 00:00:00 of 2) [code = SHINGLES Medic al Center VACCINES (1 of 2)] Future Scheduled 1960 HE[facility]ITIS C [facility]CRE[facility] 00:00:00 [code = HEPATITIS C Medical Center SCREENING] Future Scheduled 1960 HEPATITIS C [facility]CRE[facility]ING [facility] 00:00:00 [code = HEPATITIS C Medical Center SCREENING] Future Scheduled 1960 HEPATITIS C [facility]CRE[facility]ING [facility] 00:00:00 [code = HEPATITIS C Medical Center SCREENING] Future Scheduled 1960 HEPATITIS C SCRE[facility]ING [facility] 00:00:00 [code = HEPATITIS C Medical Center SCREENING] Future Scheduled 1960 HEPATITIS C [facility]CRE[facility]ING [facility] 00:00:00 [code = HEPATITIS C Medical Center SCREENING] Future Scheduled 1960 HEPATITIS C [facility]CRE[facility]ING [facility] 00:00:00 [code = HEPATITIS C Medical Center SCREENING] Future Scheduled [address] [facility] Test 00:00:00 Counseling and Medical Cente r Screening (12+) [code = Tobacco Cessation Counseling and Screening (12+)] Future Scheduled [address] [facility] 00:00:00 Counseling and Medical Cente r Screening (12+) [code = Tobacco Cessation Counseling and Screening (12+)] Future Scheduled [address] [facility] Test 00:00:00 Counseling and Medical Cente r Screening (12+) [code = Tobacco Cessation Counseling and Screening (12+)] Future Scheduled [address] [facility] Test 00:00:00 Counseling and Medical Cente r Screening (12+) [code = Tobacco Cessation Counseling and Screening (12+)] Future Scheduled [address] [facility] Test 00:00:00 Counseling and Medical Cente r Screening (12+) [code = Tobacco Cessation Counseling and Screening (12+)] Future Scheduled 1943-06-21 COVID-19 VACCINE (#1) [facility] 00:00:00 [code = COVID-[address] VACCINE (#1)] Future Scheduled 1943-06-21 COVID-19 VACCINE (#1) [facility] 00:00:00 [code = COVID-[address] VACCINE (#1)] Future Scheduled 1943-06-21 COVID-19 VACCINE (#1) [facility] 00:00:00 [code = COVID-[address] VACCINE (#1)] Future Scheduled 1943-06-21 COVID-19 VACCINE (#1) [facility] 00:00:00 [code = COVID-[address] VACCINE (#1)] Future Scheduled 1943-06-21 COVID-19 VACCINE (#1) [facility] 00:00:00 [code = COVID-[address] VACCINE (#1)] Future Scheduled 1943-06-21 COVID-19 VACCINE (#1) [facility] 00:00:00 [code = COVID-[address] VACCINE (#1)] Future Scheduled 1942 DXA SCAN [code = DXA [facility] Test 00:00:00 SCAN] Medical Center Future Scheduled 1942 DXA SCAN [code = DXA [facility] 00:00:00 SCAN] Medical Center Future Scheduled 1942 DXA SCAN [code = DXA [facility] Test 00:00:00 SCAN] Medical Center Future Scheduled 1942 DXA SCAN [code = DXA [facility] Test 00:00:00 SCAN] Medical Center Future Scheduled 1942 DXA SCAN [code = DXA [facility] Test 00:00:00 SCAN] Medical Center Future Scheduled 1942 DXA SCAN [code = DXA [facility] Test 00:00:00 SCAN] Medical Center Encounters Start End Encounter Admission Attending Care Care Encounter Source Date/Time Date/Time Type Type Clinicians Facility Department ID 2022-07-18 Outpatient [facility] [id number] [place] 10:51:46 [id number] [facility] 2022-07-08 Outpatient [facility] [id number] [place] 14:55:52 [id number] [facility] 2022-05-22 Outpatient Lenka, STLMLC STLMLC [id number] Common 11:48:00 Michelle [id number] [facility] 2022-03-29 Outpatient Bassett, Na STLMLC STLMLC [id number] 2 Common 08:31:00 [facility] 2022-03-26 Outpatient [facility] [id number] [place] 15:02:57 [id number] [facility] 2021-12-31 Outpatient Bassett, Na STLMLC STLMLC [id number] 2 [facility] 12:23:00 [facility] [place] 2021-12-26 Outpatient Bassett, Na STLMLC STLMLC [id number] 2 Common 09:29:02 [facility] [place] 2021-12-18 Outpatient [facility] [id number] [place] 12:59:28 [id number] [facility] 2021-12-06 Outpatient [facility] [id number] [place] 15:09:40 [id number] [facility] 2021-11-13 Outpatient Bassett, Na STLMLC STLMLC [id number] 2 Common 14:29:01 [facility] [place] 2021-09-21 Outpatient Bassett, Na STLMLC STLMLC [id number] 2 Common 07:22:00 [facility] [place] 2021-09-12 Outpatient Bassett, Na STLMLC STLMLC [id number] 2 Common 08:38:00 [facility] [place] 2021-06-29 Outpatient Bassett, Na STLMLC STLMLC [id number] 2 Common 16:40:00 [facility] [place] 2021-05-09 Outpatient Bassett, Na STLMLC STLMLC [id number] 2 Common 14:22:23 [id number] [facility] [place] 2021-05-09 Outpatient Bassett, Na STLMLC STLMLC [id number] 2 Common 12:27:36 [id number] [facility] [place] 2021-05-09 Outpatient Bassett, Na STLMLC STLMLC [id number] 2 Common 11:57:36 [id number] [facility] [place] 2021-05-09 Outpatient Bassett, Na STLMLC STLMLC [id number] 2 Common 11:56:47 [id number] [facility] [place] 2021-05-09 Outpatient Bassett, Na STLMLC STLMLC [id number] 2 Common 11:17:40 [id number] [facility] [place] 2021-05-09 Outpatient Bassett, Na STLMLC STLMLC [id number] 2 Common 11:17:26 [id number] [facility] [place] 2021-05-09 Outpatient Bassett, Na STLMLC STLMLC [id number] 2 Common 11:06:28 [id number] [facility] [place] 2021-05-09 Outpatient Bassett, Na STLMLC STLMLC [id number] 2 Common 11:02:04 [id number] [facility] [place] 2021-05-09 Outpatient Bassett, Na STLMLC STLMLC [id number] 2 Common 11:00:00 [id number] [facility] [place] 2021-05-09 Outpatient Bassett, Na STLMLC STLMLC [id number] 2 Common 10:58:35 [id number] [facility] [place] 2023-03-24 2023-03-24 Outpatient MHIE IE [id number] Memoria 10:20:00 10:20:00 05 deandre Rubio 2022-09-23 2022-09-24 Outpatient MHIE [facility] [id number] Memoria 16:20:00 04:59:59 Specialty 04 Benitez [facility] [place] 2022-09-23 2022-09-23 Outpatient Cynthia [facility] [id number] 11:20:00 23:59:59 Steff L 04 2022-09-23 2022-09-23 Outpatient MHIE MHIE [id number] Memoria 11:20:00 11:20:00 04 deandre Rubio 2022-08-05 2022-08-06 Outpatient MHIE [facility] [id number] Memoria 15:40:00 04:59:59 Specialty 03 l [facility] 2022-08-05 2022-08-05 Outpatient Cynthia, MHMG MHMG [id number] 10:40:00 23:59:59 Steff L 2022-08-05 2022-08-05 Outpatient MHIE MHIE [id number] Memoria 10:40:00 10:40:00 03 deandre Rubio 2022-07-23 2022-07-23 Office Gilberto [facility] [id number] [id number] [place] 13:30:00 14:12:51 Visit [facility] 350.1.13.58 H [facility] 9.2.7.2.686 [address] 2 [id number] 1 2022-07-18 2022-07-18 Outpatient GILBERTO [facility] [id number] [place] 13:30:00 13:30:[facility] 2022-05-22 (TEL) STLMLC STLMLC [id number] Co mmon 00:00:00 00:00:00 [facility] [place] 2022-05-06 2022-05-07 Outpatient MHIE [facility] [id number] Memoria 17:00:00 05:59:59 Specialty 02 l [facility] 2022-05-06 2022-05-06 Outpatient Cynthia, ERENMG MHMG [id number] 11:00:00 23:59:59 Steff L 2022-05-06 2022-05-06 Outpatient MHIE MHIE [id number] Memoria 11:00:00 11:00:00 02 deandre Rubio 2022-05-06 2022-05-06 (TEL) STLMLC STLMLC [id number] Co mmon 00:00:00 00:00:00 [facility] [place] 2022-04-19 2022-04-20 Between MHIE [facility] Multi [id number] Memoria 15:07:21 15:07:21 Visit Specialty 00 l Ney Rubio 2022-04-19 2022-04-20 Outpatient MHMG MHMG [id number] 09:07:21 09:07:21 00 2022-04-19 2022-04-19 (TEL) STLMLC STLMLC [id number] Co mmon 00:00:00 00:00:00 [facility] [place] 2022-04-01 2022-04-02 Outpt Diag MHIE [facility] [id number] Memoria 20:29:00 05:59:00 Services Outpatient 00 l [facility] [place] 2022-04-02 2022-04-02 (TEL) STLMLC STLMLC [id number] Co mmon 00:00:00 00:00:00 [facility] [place] 2022-04-02 2022-04-02 OL DIG E/M STLMLC STLMLC [id number] Common 00:00:00 00:00:00 SVC 21+ [facility] 2022-04-01 2022-04-01 Outpatient Staller, MH29 MH29 [id number] 14:29:00 23:59:00 Steff L 00 2022-03-27 2022-03-27 (TEL) STLMLC STLMLC [id number] Co mmon 00:00:00 00:00:00 [facility] [place] 2022-03-25 2022-03-26 Outpatient MHIE [facility] [id number] Memoria 21:30:00 05:59:59 Specialty 01 l [facility] [place] 2022-03-25 2022-03-25 Outpatient Staller, MHMG MHMG [id number] 15:30:00 23:59:59 Steff L 01 2022-03-25 2022-03-25 Outpatient MHIE MHIE [id number] Memoria 15:30:00 15:30:00 01 deandre Rubio 2022-03-20 2022-03-20 (TEL) STLMLC STLMLC [id number] Co mmon 00:00:00 00:00:00 [facility] [place] 2022-02-27 2022-02-27 (TEL) STLMLC STLMLC [id number] Co mmon 00:00:00 00:00:00 [facility] [place] 2022-02-13 2022-02-13 (TEL) STLMLC STLMLC [id number] Co mmon 00:00:00 00:00:00 [facility] [place] 2022-01-25 2022-01-25 (TEL) STLMLC STLMLC [id number] Co mmon 00:00:00 00:00:00 [facility] [place] 2022-01-21 2022-01-21 (TEL) STLMLC STLMLC [id number] Co mmon 00:00:00 00:00:00 [facility] [place] 2022-01-07 2022-01-07 (TEL) STLMLC STLMLC [id number] Co mmon 00:00:00 00:00:00 [facility] [place] 2022-01-03 2022-01-03 (TEL) STLMLC STLMLC [id number] Co mmon 00:00:00 00:00:00 [facility] [place] 2022-01-01 2022-01-01 (TEL) STLMLC STLMLC [id number] Co mmon 00:00:00 00:00:00 [facility] [place] 2021-12-28 2021-12-28 OFFICE STLMLC STLMLC [id number] Co mmon 00:00:00 00:00:00 VISIT [facility] PT - CHI LEVEL 4 [facility] 2021-12-24 2021-12-24 OFFICE STLMLC STLMLC [id number] Co mmon 00:00:00 00:00:00 VISIT NEW [facility] PT LEVEL 4 [facility] 2021-12-20 2021-12-20 (TEL) STLMLC STLMLC [id number] Co mmon 00:00:00 00:00:00 [facility] [place] 2021-12-18 2021-12-18 Outpatient [facility] [id number] [place] 00:00:00 14:55:38 Health 2021-12-18 2021-12-18 Office YAKOV Macias [facility] 1.2.840.114 [id number] [place] 14:15:00 14:55:14 Visit Cameron SUGAR [id number] H [facility] [id number] ABHILASH 2 [id number] 1 2021-12-05 2021-12-05 OFFICE STLMLC STLMLC [id number] Co mmon 00:00:00 00:00:00 VISIT [facility] ESTAB PT - CHI LEVEL 2 [facility] 2021-12-04 2021-12-04 (TEL) STLMLC STLMLC [id number] Co mmon 00:00:00 00:00:00 [facility] [place] 2021-11-23 2021-11-23 (TEL) STLMLC STLMLC [id number] Co mmon 00:00:00 00:00:00 [facility] [place] 2021-11-21 2021-11-21 (TEL) STLMLC STLMLC [id number] Co mmon 00:00:00 00:00:00 [facility] [place] 2021-11-15 2021-11-15 (TEL) STLMLC STLMLC [id number] Co mmon 00:00:00 00:00:00 [facility] [place] 2021-11-15 2021-11-15 OFFICE STLMLC STLMLC [id number] Co mmon 00:00:00 00:00:00 VISIT EST Spir it PT LEVEL 3 - [facility]I [facility] 2021-11-01 2021-11-01 (TEL) STLMLC STLMLC [id number] Co mmon 00:00:00 00:00:00 Spirit [facility] 2021-10-25 2021-10-25 OFFICE STLMLC STLMLC [id number] Co mmon 00:00:00 00:00:00 VISIT [facility] ESTAB PT - CHI LEVEL 4 [facility] 2021-10-17 2021-10-17 SUB ANNUAL STLMLC STLMLC [id number] Common 00:00:00 00:00:00 MCR [facility] WELLNESS - CHI VISIT [facility] 2021-10-172021-10-17 OL DIG E/M STLMLC STLMLC [id number] Common 00:00:00 00:00:00 [facility] 11-20 Spir it [facility] 2021-10-05 2021-10-05 (TEL) STLMLC STLMLC [id number] Co mmon 00:00:00 00:00:00 [facility] [place] 2021-09-26 2021-09-26 [facility], 1.2.840.1 [id number] Methodi 09:04:13 23:59:00 Encounter Orlando YoungKwasi 16995.1.[address] 3.430.2.7 Hospit a .3.057549 l .8 2021-09-26 2021-09-26 [facility] 1.2.840.1 [id number] Methodi 09:04:01 23:59:00 Encounter Orlando Young. 02297.1.[address] 3.430.2.7 Hospit a .3.804038 l .8 2021-09-26 2021-09-26 Travel 1.2.840.1 [id number] [id number] Methodi 00:00:00 00:00:[address] 3.430.2.7 0.2.7.3.698 Ho spita .3.382061 084.8 l .8 2021-09-21 2021-09-21 (TEL) STLMLC STLMLC [id number] Co mmon 00:00:00 00:00:00 [facility] [place] 2021-09-19 2021-09-19 Travel 1.2.840.1 [id number] [id number] Methodi 00:00:00 00:00:[address] 3.430.2.7 0.2.7.3.698 Ho spita .3.513026 084.8 l .8 2021-09-18 2021-09-18 Transcribe Hoffman, 1.2.840.1 [id number] Methodi 00:00:00 00:00:00 Orders Orlando Hooker 79311.1.[address] 3.430.2.7 Hospit a .3.645720 l .8 2021-09-18 2021-09-18 (TEL) STLMLC STLMLC [id number] Co mmon 00:00:00 00:00:00 [facility] [place] 2021-09-14 2021-09-14 OFFICE STLMLC STLMLC [id number] Co mmon 00:00:00 00:00:00 VISIT [facility] LEVEL 4 [facility] 2021-08-07 2021-08-07 (TEL) STLMLC STLMLC [id number] Co mmon 00:00:00 00:00:00 [facility] [place] 2021-08-03 2021-08-03 Telephone Norah [facility] 1.2.840.114 [id number] Univers 00:00:00 00:00:[address] [facility] [id number] ity of [place]2.[place] [facility] [id number] Ny dical NAL [address] 2021-07-31 2021-07-31 (TEL) STLC STLMLC [id number] Co mmon 00:00:00 00:00:00 [facility] [place] 2021-07-30 2021-07-30 Telephone Georgette [facility] 1.2.268.935 [id number] Univers 00:00:00 00:00:00 [facility] [id number] it [place] of [place].2.[place] [id number] [place] [address] [address] OFFICE BUILDING 2021-06-28 2021-06-28 (TEL) STLMLC STLMLC [id number] Co mmon 00:00:00 00:00:00 [facility] [place] 2021-05-15 2021-05-15 (TEL) STLMLC STLMLC [id number] Co mmon 00:00:00 00:00:00 [facility] [place] 2021-04-19 2021-04-19 (TEL) STLMLC STLMLC [id number] Co mmon 00:00:00 00:00:00 [facility] [place] 2021-04-18 2021-04-18 (TEL) STLMLC STLMLC [id number] Co mmon 00:00:00 00:00:00 [facility] [place] 2021-04-18 2021-04-18 OL DIG E/M STLMLC STLMLC [id number] Common 00:00:00 00:00:00 [facility] 11-20 Spir it [facility] 2021-03-27 2021-03-27 (TEL) STLMLC STLMLC [id number] Co mmon 00:00:00 00:00:00 [facility] [place] 2021-03-26 2021-03-26 (TEL) STLMLC STLMLC [id number] Co mmon 00:00:00 00:00:00 [facility] [place] 2021-03-22 2021-03-22 OFFICE STLMLC STLMLC [id number] Co mmon 00:00:00 00:00:00 VISIT [facility] LEVEL 4 [facility] 2021-03-21 2021-03-21 (TEL) STLMLC STLMLC [id number] Co mmon 00:00:00 00:00:00 [facility] [place] 2021-03-06 2021-03-06 Outpatient DAVID SZYMANSKI [facility] [id number] Univers 14:30:00 16:29:31 DAVID YODER [facility] 2021-03-06 2021-03-06 Office Georgette [facility] 1.2.840.114 [id number] Univers 14:02:51 16:29:31 Visit David GARRETT 350.1.13.10 Cristino 4.2.7.2.686 Liz WHITE [id number] [address] OFFICE BUILDING 2021-02-09 2021-02-09 Outpatient JOSÉ MIGUEL GILMAN [facility] [id number] Univers 10:40:00 14:58:48 JOSÉ MIGUEL OLIVERA [facility] 2021-02-09 2021-02-[address] [facility] 1.2.840.114 [id number] Univers 10:20:50 14:58:48 Visit José Miguel [facility] [id number] ity of [place] 4.2.7.2.686 [place] as ARISTIDES?BLEA [id number] [address] OFFICE [facility] 2021-01-29 2021-01-29 (TEL) [facility] [id number] Co mmon 00:00:00 00:00:00 [facility] [place] 2021-01-22 2021-01-22 [facility] 1.2.840.114 [id number] Univers 12:28:09 23:59:00 Encounter [facility] 350.1.13.10 [place] [id number] [address] Office Building 2021-01-22 2021-01-22 [facility] [id number] Univers 13:00:00 13:00:00 [place] ity o f [facility] 2021-01-16 2021-01-16 Telephone Christoph, 1.2.840.9 [id number] Methodi 00:00:00 00:00:[address] 3.430.2.7 Hospit a .3.211813 l .8 2021-01-10 2021-01-10 Telephone Norah, [facility] 1.2.840.[id number] [facility] 00:00:00 00:00:00 [facility] [id number] ity of [place] 4.2.7.2.686 [place] as Aristides?Blea [phone] [address] Office [facility] 2021-01-09 2021-01-[address] [facility] 1.2.840.114 [id number] Univers 10:30:28 12:43:54 Visit José Miguel [facility] [id number] ity of [place] 4.2.7.2.686 [place] as Aristides?Blea [phone] [address] Medical Office [facility] 2021-01-09 2021-01-09 Outpatient Cuate NORAHJOSÉ MIGUEL VELAZQUEZ [facility] [id number] Univers 11:00:00 11:00:00 JOSÉ MIGUEL OLIVERA johanny [facility] 2021-01-09 2021-01-09 Orders Doctor HORTENCIA 1.2.840.114 [id number] Univers 00:00:00 00:00:00 Only Unassigned, JUANA 350.1.13.10 ity of [place] [facility] 4.2.7.2.686 Prince as [phone] [address] 2021-01-05 2021-01-05 Outpatient MHIE MHIE [id number] Memoria 15:00:00 15:00:00 00 deandre Rubio 2021-01-05 2021-01-05 Outpatient MHIE MHIE [id number] Memoria 15:00:00 15:00:00 00 deandre Rubio 2020-12-25 2020-12-[address] [facility] 1.2.840.114 [id number] Univers 09:37:18 10:27:29 Visit [facility] [id number] ity of [place] 4.2.7.2.686 [place] as Aristides?Blea [phone] [address] Office [facility] 2020-12-25 2020-12-25 Outpatient Cuate OLIVERAJOSÉ MIGUEL [facility] [id number] Univers 10:00:00 10:00:00 NORAHJOSÉ MIGUEL VELAZQUEZ johanny [facility] 2020-12-25 2020-12-25 Orders Doctor HORTENCIA 1.2.840.114 [id number] Univers 00:00:00 00:00:00 Only Unassigned, JUANA 350.1.13.10 ity of [place] [facility] 4.2.7.2.686 [place] as [phone] [address] 2020-12-25 2020-12-25 Outpatient STLMLC STLMLC [id number] Common 00:00:00 00:00:00 [facility] [place] 2020-12-20 2020-12-20 Ambulatory nullFlavo MNA [id number] Memoria 19:15:00 19:15:00 Pre-Reg r Neurology 00 l Harlingenjim Rubio 2020-12-20 2020-12-20 Outpatient YANET Skaggs [id number] 14:15:00 14:15:00 Kayden Susan Cr 2020-12-07 2020-12-07 Outpatient STLMLC STLMLC [id number] Common 00:00:00 00:00:00 [facility] [place] 2020-12-05 2020-12-05 Outpatient STLMLC STLMLC [id number] Common 00:00:00 00:00:00 [facility] [place] 2020-12-02 2020-12-02 Outpatient STLMLC STLMLC [id number] Common 00:00:00 00:00:00 [facility] [place] 2020-08-30 2020-08-30 Outpatient STLMLC STLMLC [id number] Common 00:00:00 00:00:00 [facility] [place] 2020-08-25 2020-08-25 Outpatient STLMLC STLMLC [id number] Common 00:00:00 00:00:00 [facility] [place] 2020-07-02 2020-07-02 Outpatient STLMLC STLMLC [id number] Common 00:00:00 00:00:00 [facility] [place] 2020-05-24 2020-05-24 Outpatient STLMLC STLMLC [id number] Common 00:00:00 00:00:00 [facility] [place] 2020-05-18 2020-05-18 Outpatient STLMLC STLMLC [id number] Common 00:00:00 00:00:00 [facility] [place] 2020-04-03 2020-04-03 Office ROJELIO Whitney 1.2.840.114 [id number] 11:14:50 14:12:42 Visit Boone AMBULATOR 350.1.13.21 Y 0.2.7.2.686 [id number] 2020-04-03 2020-04-03 Office ROJELIO Leslie 1.2.840.114 [id number] 09:55:09 13:25:28 Visit Junior AMBULATOR 350.1.13.21 Y 0.2.7.2.686 [id number] 600 2020-04-03 2020-04-03 [facility] [id number] SLE 00:00:00 00:00:00 DESDEMONA 2020-04-03 2020-04-03 Outpatient CHELO [facility] [id number] SLE 00:00:00 00:00:00 DESDEMONA 2020-04-03 2020-04-03 Outpatient LEVI WHITNEY [facility] [id number] SLE 00:00:00 00:00:00 DESDEMONA 2020-02-28 2020-02-28 Outpatient STLMLC STLMLC [id number] Common 00:00:00 00:00:00 [facility] [place] 2020-02-03 2020-02-03 Outpatient STLMLC STLMLC [id number] Common 00:00:00 00:00:00 [facility] [place] 2020-02-01 2020-02-01 [facility] [id number] 00:00:00 00:00:00 TYLER [address] 2020-01-24 2020-01-24 Outpatient STLMLC STLMLC [id number] Common 00:00:00 00:00:00 [facility] [place] 2019-11-26 2019-11-26 Outpatient [facility] [id number] Common 09:00:00 09:00:[address] [facility] 2019-10-20 2019-10-20 Outpatient [facility] [id number] Common 09:20:00 09:20:[address] [facility] 2019-10-20 2019-10-20 Outpatient [facility] [id number] Common 09:00:00 09:00:[address] [facility] 2019-10-18 2019-10-18 Outpatient [facility] [id number] Common 14:40:00 14:40:[address] [facility] 2019-10-18 2019-10-18 Outpatient [facility] [id number] Common 07:56:00 07:56:[address] [facility] 2019-09-14 2019-09-14 Outpatient CHRISTOPH, [facility] [id number] 00:00:00 00:00:00 ASUNCION [address] 2019-07-20 2019-07-20 Outpatient [facility] [id number] Common 09:20:00 09:20:[address] [facility] 2019-06-16 2019-06-16 Outpatient [facility] [id number] Common 10:47:00 10:47:[address] [facility] 2019-05-26 2019-05-26 Outpatient [facility] [id number] Common 10:40:00 10:40:[address] [facility] 2019-05-20 2019-05-20 Outpatient [facility] [id number] Common 15:50:00 15:50:[address] [facility] 2019-04-26 2019-04-26 Outpatient [facility] [id number] Common 11:20:00 11:20:[address] [facility] 2019-03-26 2019-03-31 Inpatient CHRISTOPH, [facility] [id number] 00:00:00 00:00:00 ASUNCION [address] 2019-03-24 2019-03-24 Outpatient [facility] [id number] Common 16:48:00 16:48:[address] [facility] 2019-03-18 2019-03-18 Outpatient CHRISTOPH, [facility] [id number] 00:00:00 00:00:00 ASUNCION [address] 2019-03-16 2019-03-16 Outpatient [facility] [id number] Common 13:20:00 13:20:[address] [facility] 2019-02-18 2019-02-18 Outpatient [facility] [id number] Common 10:33:00 10:33:[address] [facility] 2019-01-26 2019-01-26 Outpatient [facility] [id number] Common 13:40:00 13:40:[address] [facility] 2018-12-29 2018-12-29 Outpatient [facility] [id number] Common 08:00:00 08:00:[address] [facility] 2018-11-19 2018-11-19 Outpatient [facility] [id number] Common 09:40:00 09:40:[address] [facility] 2018-09-24 2018-09-24 Outpatient [facility] [id number] Common 15:43:00 15:43:[address] [facility] 2018-07-16 2018-07-16 Outpatient [facility] [id number] Common 10:00:00 10:00:[address] [facility] 2018-04-16 2018-04-16 Outpatient [facility] [id number] Common 09:30:00 09:30:[address] [facility] 2018-03-25 2018-03-25 Outpatient [facility] [id number] Common 13:50:00 13:50:[address] [facility] 2018-01-29 2018-01-29 Outpatient [facility] [id number] Common 10:29:00 10:29:[address] [facility] 2018-01-14 2018-01-14 Outpatient [facility] [id number] Common 08:45:00 08:45:[address] [facility] 2017-10-16 2017-10-16 Outpatient [facility] [id number] Common 09:15:00 09:15:[address] [facility] 2017-10-06 2017-10-06 Outpatient [facility] [id number] Common 15:44:00 15:44:[address] [facility] 2017-09-19 2017-09-19 Outpatient [facility] [id number] Common 14:57:00 14:57:[address] [facility] 2017-09-12 2017-09-12 Outpatient [facility] [id number] Common 15:09:00 15:09:[address] [facility] 2017-09-04 2017-09-04 Outpatient [facility] [id number] Common 14:45:00 14:45:[address] [facility] Results Test Description Test Time Test Comments Results Result Comments Source RADT 2022-04-03 04:42:14 Test Item Value Reference Range Interpretation Comme [facility] RADT (test code = RADRPT) Abdomen 2 views DX HISTORY/INDICATIONS: 81 years Female - recurrent UTI/constipationVIEWS: 2COMPARISON: NoneFINDINGS:There is a large amount feces seen in the area of the rectum and sigmoid colon, and moderately large amount of feces in the rest of the colon.Gas is seen in the small and large bowel without evidence of distention or obstructionScoliosis of the thoracolumbar spine with marked degenerative changes in the lumbar spine. There is a 1.3 cm lateral subluxation of L2 on L3 as a result of the scoliosis.Supine study onlyLine/tubes/implants: Total right hip replacement. An electronic generator is present with electrodes that traverse upwards to the left of midline, above the upper margin of the image.IMPRESSION:1. Large amount feces in the area of the rectum and sigmoid colon and moderately large amount of feces in the rest of the colon.2. Scoliosis of thoracolumbar spine with marked degenerative changes in the lumbar spine and lateral subluxation of L2 on [id number] [id number] 05:44:32 Test Item Value Reference Range Interpretation Comments RADRPT (test code Retroperitoneal Complete US = RADRPT) HISTORY/INDICATIONS:81 years Female UTI - Without TransplantTECHNIQUE: Ultrasound of the kidneys COMPARISON: NoneFINDINGS: Right kidney: 10.3 cm length. Hydronephrosis: No hydronephrosis.Parenchymal thickness:NormalEchogenicit y: Mild increased echogenicity No focal lesions.Left kidney: 10.4 cm length. Hydronephrosis: No hydronephrosis.Parenchymal thickness: Normal Echogenicity: Mild increased echogenicity Cyst in the upper pole measuring 2.6 x 3.0 x 1.8 cm.Bladder: Negative UVJ jet is identified.Aorta: 1.4 cm transverse diameter. Unremarkable.IVC: Unremarkable.IMPRESSION:1. No evidence hydronephrosis.2. The bilateral UVJ jets are not identified.3. Mild increased echogenicity in both kidneys, consistent with medical renal disease..[id number] [facility], SPINE, LUMBAR, 2 OR 3 [id number] 14:54:00Reason for Exam:->scoliosis, unspecified scoliosis type, unspecified spinal regionReason for Exam:->chrnoic bilateral low back pain without sciatica [facility] : 1940 Sex: FFINAL REPORT Exam: Thoracic spine two views and [...] 24 degrees taken from L2 through L5. Rightwardtranslation of L2 on L3. Advanced multilevel degenerative disc of the lumbar spine most prominent left aspect of L1-L2 and diffusely at L2-L3 extending to L5-S1. Lower lumbar facet arthrosis. Impression: Leftward lumbar scoliosis with advanced multilevel advanced degenerative disc. Age-indeterminate compression deformity of L1. Signed: Pravin Newman MDReport Verified Date/Time: 04/03/2020 14:54:19 Reading Location: [facility] Reading Room [address] [place] [address] RAD, SPINE, THORACIC, 2 [id number] 14:54:00Reason for Exam:- >scoliosis, unspecified scoliosis type, unspecified spinal region,Reason for Exam:->chronic bilateral low back pain without sciaticaReason for Exam:- >compresseion deformity ofverebra [facility] : 1940 Sex: FFINAL REPORT Exam: Thoracic spine two views and [...] L1. Signed: Pravin Newman Verified Date/Time: 04/03/2020 14:54:19Reading Location: [facility] Reading Room [address] [place] [address] , SPINE, CERVICAL, COMPLETE (MIN 4 VIEWS)2020-04-03 14:49:00Reason for Exam:- >scoliosis, unspecified scoliosis type, unspecifed spinalregion [facility] : 1940 Sex: FFINAL REPORT Exam: Cervical spine two views History: Scoliosis Comparison: None. Findings: No fracture. Anterolisthesis of C3 on C4 and C4 on C5. Multilevel degenerative disc throughout the cervical spine most severe at C5-C6 and C6-C7 with possible fusion. Advanced cervical facet arthrosis most advanced at C2-C3 extending to C4-C5. Multilevel foraminal stenosis. 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 Signed:Pravin Newman Verified Date/Time: 04/03/2020 14:49:24 Reading Location: [facility] Reading Room [address] [place] [address] TISSUE EXAM 2017-10-03 09:01:00Surgical Pathology Report Case: [id number] Authorizing Provider: Junior Leslie Collected: 09/25/2017 Dewayne Bean MD Ordering Location: [facility] PERIOPERATIVE Received: 09/26/2017 0802 SERVICES Pathologist: Jason You MD Specimen: Femoral Head, Right Hip BONE, RIGHT HIP, ARTHROPLASTY:-OSTEOARTHRITIS Signing Pathologist Direct Phone Line: [phone] signed by Jason You MD on 10/03/2017 at 9:01 [id number] hip arthritisRight femoral headThe specimen is received in a fluidless container labeled with patient information and labeled "right femoral head"and consists of a lynch-red spherical femoral head [...] tissue reveals subsynovial edema with chronic inflammation.POCT-GLUCOSE [id number] 08:07:00 Test Item Value Reference Range Interpretation Comments POC-GLUCOSE METER 302 mg/dL 70-110 H TESTED AT [facility] 6720 ([facility]) (test code = [facility] 1538) [id number] BASIC METABOLIC [id number] 07:09:00 Test Item Value Reference Range Interpretation Comments SODIUM (BEAKER) 136 meq/L 136-145 (test code = 381) POTASSIUM (BEAKER) 4.5 meq/L 3.5-5.1 (test code = 379) CHLORIDE (BEAKER) 108 meq/L 98-107 H (test code = 382) CO2 (BEAKER) (test 21 meq/L 22-29 L code = 355) BLOOD UREA NITROGEN 19 mg/dL 7-21 (AKER) (test code = 354) CREATININE (BEAKER) 0.82 [...] APPLICABLE FOR DIALYSIS PATIEN TS. HEMOGLOBIN AND [id number] 06:38:00 Test Item Value Reference Range Interpretation Comments HEMOGLOBIN (BEAKER) (test code = 9.4 GM/DL 11.2-15.7 L 410) HEMATOCRIT (BEAKER) (test code = 29.5 % 34.1-44.9 L 411) POCT-GLUCOSE [id number] 21:34:00 Test Item Value Reference Range Interpretation Comments POC-GLUCOSE METER 298 mg/dL 70-110 H TESTED AT [facility] 6720 (BEAKER) (test code = [facility] 1538) [id number] BASIC METABOLIC [id number] 18:58:00 Test Item Value Reference Range Interpretation [...] NOT APPLICABLE FOR DIALYSIS PATIEN TS. POCT-GLUCOSE [id number] 17:06:00 Test Item Value Reference Range Interpretation Comments POC-GLUCOSE METER 228 mg/dL 70-110 H TESTED AT [facility] 6720 ([facility]) (test code = [facility] 1538) [address] RAD, CHEST, 1 VIEW, NON [id number] 15:01:00Reason for exam:->feverShould this be performed at [...] MDReport Verified Date/Time: 09/26/2017 15:01:38 Reading Location: [facility] Radiology Reading Room [facility] METABOLIC [id number] 14:39:00 Test Item Value Reference Range Interpretation [...] S NOT APPLICABLE FOR DIALYSIS PATIEN TS. [id number] 13:26:00 Test Item Value Reference Range Interpretation Comments POTASSIUM (BEAKER) (test code = 5.4 meq/L 3.5-5.1 H 379) POCT-GLUCOSE [id number] 12:40:00 Test Item Value Reference Range Interpretation Comments POC-GLUCOSE METER 230 mg/dL 70-110 H TESTED AT [facility] 6720 (BEAKER) (test code = [facility] [place] [facility] 1538) [id number] POCT-GLUCOSE [id number] 07:49:00 Test Item Value Reference Range Interpretation Comments POC-GLUCOSE METER 166 mg/dL 70-110 H TESTED AT [facility] 6720 (BEAKER) (test code = [facility] [place] 1538) [id number] BASIC METABOLIC [id number] 07:13:00 Test Item Value Reference Range Interpretation [...] APPLICABLE FOR DIALYSIS PATIEN TS. BASIC METABOLIC [id number] 05:22:00 Test Item Value Reference Range Interpretation [...] APPLICABLE FOR DIALYSIS PATIEN TS. HEMOGLOBIN AND [id number] 04:55:00 Test Item Value Reference Range Interpretation Comments HEMOGLOBIN (DEBORAH) (test code = 10.6 GM/DL 11.2-15.7 L 410) HEMATOCRIT (DEBORAH) (test code = 34.1 % 34.1-44.9 411) POCT-GLUCOSE [id number] 22:27:00 Test Item Value Reference Range Interpretation Comments POC-GLUCOSE METER 254 mg/dL 70-110 H TESTED AT [place] [address] ([facility]) (test code = [facility] 1538) [address] RAD, PELVIS, 1 OR 2 [id number] 19:48:00Reason for exam:->s/p THAShould this be performed [...] Stewart Verified Date/Time: 09/25/2017 19:48:33 Reading Location: [facility] [id number] Consult Reading Room 07:48 PMPOCT-GLUCOSE [id number] 19:19:00 Test Item Value Reference Range Interpretation Comments POC-GLUCOSE METER 173 mg/dL 70-110 H TESTED AT [facility] 6720 ([facility]) (test code = [facility] 1538) [address] RAD, PELVIS, 1 OR 2 [id number] 17:03:00Reason for exam:->hip osteoarthritisFINAL REPORT Technique: Single intraoperative image of the pelvis submitted. FINDINGS: Single limited view of the pelvis demonstrates left hip arthroplasty in progress. Correlationwith intraprocedural findings recommended. Signed: Mik Baron MDReport Verified Date/Time: 17:03:04 Reading Location: [facility] Reading Room [id number] 12:48:00 Test Item Value Reference Range Interpretation Comments SODIUM (BEAKER) (test code = 381) 138 meq/L 136-145 POTASSIUM (BEAKER) (test code = 4.7 meq/L 3.5-5.1 379) CHLORIDE (BEAKER) (test code = 382) 105 meq/L 98-107 CO2 (BEAKER) (test code = 355) 23 meq/L 22-29 BUN AND [id number] 12:48:00 Test Item Value Reference Range Interpretation Comments BLOOD UREA NITROGEN 19 mg/dL 7-21 (BEAKER) (test code = 354) CREATININE (BEAKER) 1.06 mg/dL 0.57-1.25 (test code = 358) EGFR (BEAKER) (test 51 mL/min/1.73 ESTIMA EDWIN GFR IS code = 1092) sq m NOT ACCURATE CREATININE CLEARANCE IN PREDICTING GLOMERULAR FILTRATION RATE . ESTIMATED GFR I S NOT APPLICABLE FOR DIALYSIS PATIEN TS. POCT-GLUCOSE [id number] 12:31:00 Test Item Value Reference Range Interpretation Comments POC-GLUCOSE METER 131 mg/dL 70-110 H TESTED AT [facility] 6720 (BEAKER) (test code = [facility] [place] 1538) [id number] 11:03:00 Test Item Value Reference Range Interpretation Comments HEMOGLOBIN (BEAKER) (test code = 12.8 GM/DL 11.2-15.7 410) PLATELET [id number] 11:03:00 Test Item Value Reference Range Interpretation Comments PLATELET COUNT (BEAKER) (test 213 K/CU MM 150-450 code = 756) Notes Date/Time Note Provider Source 2022-04-01 15:03:56-00:00 Abdomen 2 views DX [facility] [place] HISTORY/INDICATIONS:81 years Female - recurrent UTI/constipation VIEWS: 2 COMPARISON: None FINDINGS: There is a large amount fece s seen in the area of the rectum and sigmoid colon, and moderately large amount of feces in the rest of the colon. Gas is seen in the small and large bowel without evidence of distention or obstruction Scoliosis of the thoracolumb ar spine with marked degenerative changes in the lumbar spine. There is a 1.3 cm lateral subluxation of L2 on L3 as a result of the scoliosis. Supine study only Line/tubes/implants: Total r ight hip replacement. An electronic generator is present with electrodes that traverse upwards to the left of midline, above the upper margin of the image. IMPRESSION: 1. Large amount feces in the area of the rectum and sigmoid colon and moderately large amount of feces in the rest of the colon. 2. Scoliosis of thoracolumba r spine with marked degenerative changes in the lumbar spine and lateral subluxation of L2 on L3 [id number] 2022-04-01 14:39:59-00:00 Retroperitoneal Complete US [facility] [place] HISTORY/INDICATIONS:81 years Female UTI - Withou t Transplant TECHNIQUE: Ultrasound of the kidneys COMPARISON: None FINDINGS: Right kidney: 10.3 cm length. Hydronephrosis: No hydronephrosis. Parenchymal thickness:Normal Echogenicity: Mild increased echogenicity No focal lesions. Left kidney: 10.4 cm length. Hydronephrosis: No hydronephrosis. Parenchymal thickness: Normal Echogenicity: Mild increased echogenicity Cyst in the upper pole measuring 2.6 x 3.0 x 1.8 cm. Bladder: Negative UVJ jet is identified. Aorta: 1.4 cm transverse diameter. Unremarkable. IVC: Unremarkable. IMPRESSION: 1. No evidence hydronephrosis. 2. The bilateral UVJ jets are not identified. 3. Mild increased echogenici ty in both kidneys, consistent with medical renal disease.. [id number]
[2022-10-13 19:47] LABS: Absolute Lymphocytes (CBC) 0.6 K/uL (0.7-4.9); Hematocrit 33.9 % (36.0-45.0); MCV 90.5 fL (80-100); MPV 10.4 fL (7.6-11.3); RBC Red Blood Cell Count 3.74 M/uL (3.86-4.86)
[2022-10-13 20:01] LABS: Protime INR 1.01
[2022-10-13 20:11] LABS: Bilirubin Direct 0.4 mg/dL (0-0.2); Bilirubin Indirect, Calculated 1.1 mg/dL (0.2-0.8); Bilirubin Total 1.5 mg/dL (0.2-1.0); Magnesium 2.1 mg/dL (1.6-2.4); Potassium 2.7 mEq/L (3.5-5.1); Protein, Total 6.7 g/dL (6.4-8.2); Troponin High Sensitivity 18.9 pg/mL (<58.9)
[2022-10-13] MEDS ORDERED: AZITHROMYCIN 500 MG INJ IVPB ONE (20:11)
[2022-10-13] MEDS ORDERED: ALBUTEROL 2.5 MG/3 ML NEB SOL ONE (20:11)
[2022-10-13] MEDS ORDERED: CEFTRIAXONE 1000 MG/VIAL ONE (20:11)
[2022-10-13] MEDS ORDERED: METHYLPREDNISOLONE 125 MG INJ ONE (20:11)
[2022-10-13 20:12] LABS: SARS-CoV-2 Antigen Rapid Res Negative (Negative)
[2022-10-13] MEDS ORDERED: NA CHLORIDE 0.9% 250 ML ONE (20:12)
[2022-10-13] MEDS ORDERED: FAMOTIDINE 20 MG/2 ML VIAL IV ONE (20:12)
[2022-10-13] MEDS ORDERED: IPRATROPIUM BROM 0.5MG/2.5ML ONE (20:12)
[2022-10-13] MEDS ORDERED: NA CHLORIDE 0.9% 2,000 ML ONE (20:12)
--- NOTE | 2022-10-13 20:23 | EDPHYS ---
Physician Documentation [facility] Name: Maricruz Conrad Age: 81 yrs Sex: Female : 1940 Arrival Date: 10/13/2022 Time: 19:06 Bed 20 Private MD: ED Physician Alan Rubio HPI: 10/13 19:28 This 81 yrs old Female presents to ER via EMS with complaints of ams, cough shelley and fever. 19:28 cough , iddm, weak , 103 temp. The patient presents with trouble concentrating. Onset: shelley The symptoms/episode began/occurred just prior to arrival, this morning, today. Possible causes: unknown. The patient or guardian reports cough, difficulty breathing, flu symptoms, arthralgias, low-grade fever, myalgias, no appetite. Associated signs and symptoms: Pertinent positives: lightheadedness, shortness of breath, weakness. Severity of symptoms: At their worst the symptoms were mild, moderate, in the emergency department the symptoms have resolved. Current symptoms: In the emergency department the patient's symptoms have improved, mildly, is more alert. Modifying factors: The symptoms are alleviated by cool environment, the symptoms are aggravated by exertion. The patient reports fever, that was measured at 103 degrees Fahrenheit. Historical: - Allergies: 19:17 No Known Allergies; ll1 - PMHx: 19:17 Anxiety; COPD; Diabetes - IDDM; GERD; High Cholesterol; Hypertension; ll1 - PSHx: 19:17 Cholecystectomy; Stomach bypass; ll1 - Family history:: not pertinent. ROS: 19:28 Eyes: Negative for injury, pain, redness, and discharge, ENT: Negative for injury, shelley pain, and discharge, Neck: Negative for injury, pain, and swelling, Cardiovascular: Negative for chest pain, palpitations, and edema, Abdomen/GI: Negative for abdominal pain, nausea, vomiting, diarrhea, and constipation, Back: Negative for injury and pain, : Negative for injury, bleeding, discharge, and swelling, MS/Extremity: Negative for injury and deformity, Skin: Negative for injury, rash, and discoloration, Psych: Negative for depression, anxiety, suicide ideation, homicidal ideation, and hallucinations, Allergy/Immunology: Negative for hives, rash, and allergies, Endocrine: Negative for neck swelling, polydipsia, polyuria, polyphagia, and marked weight changes. 19:28 Constitutional: Positive for body aches, chills, fatigue, fever, malaise. 19:28 Respiratory: Positive for cough, shortness of breath, wheezing, expiratory, of the left posterior lower lobe, right posterior middle lobe and right posterior lower lobe. Exam: 19:28 Head/Face: Normocephalic, atraumatic. Eyes: Pupils equal round and reactive to light, shelley extra-ocular motions intact. Lids and lashes normal. Conjunctiva and sclera are non-icteric and not injected. Cornea within normal limits. Periorbital areas with no swelling, redness, or edema. ENT: Nares patent. No nasal discharge, no septal abnormalities noted. Tympanic membranes are normal and external auditory canals are clear. Oropharynx with no redness, swelling, or masses, exudates, or evidence of obstruction, uvula midline. Mucous membranes moist. Neck: Trachea midline, no thyromegaly or masses palpated, and no cervical lymphadenopathy. Supple, full range of motion without nuchal rigidity, or vertebral point tenderness. No Meningismus. Chest/axilla: Normal chest wall appearance and motion. Nontender with no deformity. No lesions are appreciated. Cardiovascular: Regular rate and rhythm with a normal S1 and S2. No gallops, murmurs, or rubs. Normal PMI, no JVD. No pulse deficits. Abdomen/GI: Soft, non-tender, with normal bowel sounds. No distension or tympany. No guarding or rebound. No evidence of tenderness throughout. Back: No spinal tenderness. No costovertebral tenderness. Full range of motion. Female : Normal external genitalia. Skin: Warm, dry with normal turgor. Normal color with no rashes, no lesions, and no evidence of cellulitis. MS/ Extremity: Pulses equal, no cyanosis. Neurovascular intact. Full, normal range of motion. Neuro: Awake and alert, GCS 15, oriented to person, place, time, and situation. Cranial nerves II-XII grossly intact. Motor strength 5/5 in all extremities. Sensory grossly intact. Cerebellar exam normal. Normal gait. Psych: Awake, alert, with orientation to person, place and time. Behavior, mood, and affect are within normal limits. 19:28 Constitutional: The patient appears febrile. 19:28 Musculoskeletal/extremity: ROM: intact in all extremities, full active range of motion, full passive range of motion, in all extremities, Circulation is intact in all extremities. Sensation intact. Compartment Syndrome exam of affected extremity: is normal. DVT Exam: No signs of deep vein thrombosis. no pain, no swelling, no tenderness, negative Homans' sign noted on exam, no appreciated bluish discoloration, no erythema, no increased warmth. 19:28 Neuro: Orientation: is normal, appropriate for stated age, no acute changes, Mentation: is normal, appropriate for stated age, no acute changes, Memory: is normal, appropriate for stated age, no acute changes, Cranial nerves: grossly normal, is grossly normal based on the patient's age, no acute changes, Motor: is normal, is grossly normal based on the patient's age, Sensation: no obvious gross deficits, appropriate no acute changes, Gait: not tested. Babinski testing is normal. 21:37 ECG was reviewed by the Attending Physician. [facility] Vital Signs: 19:11 BP 130 / 68; Pulse 80; Resp 20; Temp 103.1(O); Pulse Ox 82% on R/A; Weight 66 kg (M); ll1 Height 5 ft. 3 in. ; 21:15 BP 129 / 65; Pulse 101; Resp 19; Temp 99.1(O); Pulse Ox 97% on 2 lpm NC; jb4 22:13 BP 108 / 60; Pulse 75; Resp 20; Pulse Ox 97% on 2 lpm NC; jb4 19:11 Body Mass Index 25.77 (66.00 kg, 160.02 cm) ll1 19:11 Placed on 4L NC now satting 96% ll1 NIH Stroke Scale Scores: 19:28 NIHSS Score: 0 shelley MDM: 19:09 Patient medically screened. shelley 19:34 Differential diagnosis: viral Infection, bacterial infection, URI, bronchitis, shelley pneumonia UTI. Differential Diagnosis altered mental status, sepsis, flu, Influenza Upper Respiratory Infection Sinusitis Pharyngitis. Differential Diagnosis: electrolyte abnormality, hypoglycemia, intracranial bleed, pneumonia, volume depletion. Data reviewed: vital signs, nurses notes, lab test result(s), EKG, radiologic studies, plain films. Consideration of Admission/Observation Escalation of care including admission/observation considered. I considered the following discharge prescriptions or medication management in the emergency department Medications were administered in the Emergency Department. See MAR. Test considered but Not performed: MRI: no mri brain. Historians other than the Patient: EMS: ems informed. 10/13 19:27 Order name: Basic Metabolic Panel; Complete Time: 20:19 shelley 10/13 19:27 Order name: CBC with Diff shelley 10/13 19:27 Order name: LFT's; Complete Time: 20:[address] [facility] 10/13 19:27 Order name: Magnesium; Complete Time: 20:[address] [facility] 10/13 19:27 Order name: NT PRO-BNP; Complete Time: 20:[address] [facility] 10/13 19:27 Order name: PT-INR; Complete Time: 20:[address] [facility] 10/13 19:27 Order name: Troponin HS; Complete Time: 20:[address] [facility] 10/13 19:27 Order name: Lipase; Complete Time: 20:[address] [facility] 10/13 19:27 Order name: Urine Culture [facility] 10/13 19:27 Order name: Urinalysis w/ reflexes [facility] 10/13 19:27 Order name: SARS RAPID; Complete Time: 20:[address] [facility] 10/13 19:27 Order name: Flu; Complete Time: 20:[address] [facility] 10/13 19:27 Order name: Blood Culture Adult (2) [facility] 10/13 19:27 Order name: Lactate w/ 2H reflex if indic.; Complete Time: 20:[address] [facility] 10/13 20:20 Order name: Phosphorus; Complete Time: 20:[address] [facility] 10/13 20:44 Order name: Urinalysis w/ reflexes EDMS 10/13 20:44 Order name: Basic Metabolic Panel EDMS 10/13 20:44 Order name: Basic Metabolic Panel EDMS 10/13 20:44 Order name: Basic Metabolic Panel EDMS 10/13 20:44 Order name: Basic Metabolic Panel EDMS 10/13 20:44 Order name: CBC with Automated Diff EDMS 10/13 20:44 Order name: CBC with Automated Diff EDMS 10/13 20:44 Order name: CBC with Automated Diff EDMS 10/13 20:44 Order name: CBC with Automated Diff EDMS 10/13 20:44 Order name: Magnesium EDMS 10/13 20:44 Order name: Magnesium EDMS 10/13 20:44 Order name: Magnesium EDMS 10/13 20:45 Order name: Magnesium EDMS 10/13 21:46 Order name: CBC Smear Scan EDMS 10/13 19:27 Order name: XRAY Chest (1 view) [facility] 10/13 19:27 Order name: EKG; Complete Time: 19:[address] [facility] 10/13 20:44 Order name: 60g Consistent Carbohydrate (ADA 1800/1999) [facility] 10/13 19:27 Order name: Cardiac monitoring; Complete Time: 19:[address] [facility] 10/13 19:27 Order name: EKG - Nurse/Tech; Complete Time: 19:[address] [facility] 10/13 19:27 Order name: IV Saline Lock; Complete Time: 19:[address] [facility] 10/13 19:27 Order name: Labs collected and sent; Complete Time: 19:[address] [facility] 10/13 19:27 Order name: O2 Per Protocol; Complete Time: 19:[address] [facility] 10/13 19:27 Order name: O2 Sat Monitoring; Complete Time: 19:[address] [facility] 10/13 20:20 Order name: IV Saline Lock - Large Bore; Complete Time: 20:[address] [facility] EC:37 Rate is 71 beats/min. Rhythm is regular. QRS [place] is Normal. [place] interval is normal. QRS shelley interval is normal. QT interval is prolonged at 565 msec. No Q waves. T waves are Normal. No ST changes noted. Clinical impression: NSR w/ Non-specific ST/T Changes and No evidence of ischemia. Interpreted by me. Reviewed by me. Administered Medications: 20:21 Drug: NS 0.9% IV 1000 ml Route: IV; Rate: 1 bolus; Site: right forearm; ll1 20:21 Drug: Rocephin IV 1 grams Route: IV; Rate: per protocol; Site: right forearm; ll1 20:21 Drug: Zithromax IVPB 500 mg Route: IVPB; Infused Over: 1 hrs; Site: left forearm; ll1 20:21 Drug: Famotidine IVP 20 mg Route: IVP; Site: right forearm; ll1 20:21 Drug: MethylPrednisoLONE IVP 125 mg Route: IVP; Site: right forearm; ll1 20:21 Drug: Albuterol Inhalation 5 mg Route: Inhalation; ll1 20:21 Drug: Ipratropium Inhalation Aerosol 0.5 mg Route: Inhalation; ll1 20:22 Drug: NS 0.9% IV 1000 ml Route: IV; Rate: 125 ml/hr; Site: left forearm; ll1 21:15 Not Given (Other Intervention Used): Potassium Chloride IV 20 mEq IV at per protocol jb4 once; administer over 1-2 hours 21:15 Drug: Potassium PO Effervescent Tablet 50 mEq Route: PO; jb4 21:34 Drug: Potassium Phosphate IV 15 mmol Route: IV; Rate: per protocol; Site: left forearm; jb4 Disposition Summary: 10/13/22 20:22 Hospitalization Ordered Hospitalization Status: Inpatient Admission shelley Provider: Barrington Monzon cha Location: Telemetry/MedSurg (Inpatient) shelley Condition: Fair shelley Problem: new shelely Symptoms: have improved shelley Bed/Room Type: Standard shelley Room Assignment: 209(10/13/22 20:49) mw Diagnosis - Pneumonia due to other specified bacteria shelley - Fever, unspecified shelley - COPD/ Chronic obstructive pulmonary disease with (acute) exacerbation shelley - Hypoxemia shelley - Hypokalemia shelley - Elevated white blood cell count shelley Forms: - Medication Reconciliation Form shelley - SBAR form shelley NIH Stroke Scale - NIH Stroke Score Date: 10/13/2022 Time: 19:28 Total Score = 0 10. Dysarthria (speech clarity - read or repeat words) - 0(Normal) 11. Extinction and Inattention (visual/tactile/auditory/spatial/personal) - 0(No abnormality) 1a. Level of Consciousness (LOC) - 0(Alert) 1b. Level of Consciousness (LOC) (Month \T\ Age) - 0(Both) 1c. LOC Commands (Open \T\ Closes Eyes/Clay Miller) - 0(Both) 2. Best Gaze (Lateral Gaze Paresis) - 0(Normal) 3. Visual Field Loss - 0(No visual loss) 4. Facial Palsy - 0(Normal) 5a. Left Arm: Motor (10-second hold) - 0(No drift) 5b. Right Arm: Motor (10-second hold) - 0(No drift) 6a. Left Leg: Motor (5-second hold - always test supine) - 0(No drift) 6b. Right Leg: Motor (5-second hold - always test supine) - 0(No drift) 7. Limb Ataxia (finger/nose \T\ heel/villagomez - test with eyes open) - 0(Absent) 8. Sensory Loss (pinprick arms/legs/face) - 0(Normal) 9. Best Language: Aphasia (description/naming/reading) - 0(No aphasia) Initials: shelley Signatures: Dispatcher [employer] Oralia Avitia RN RN mw Anderson, Corey, MD MD cha Bryson, James, RN RN jb4 Ana Whaley RN RN ll1 Corrections: (The following items were deleted from the chart) 20:49 20:22 shelley estevez
--- NOTE | 2022-10-13 20:23 | ER ---
Nurse's Notes [facility] Name: Maricruz Conrad Age: 81 yrs Sex: Female : 1940 Arrival Date: 10/13/2022 Time: 19:06 Bed 20 Private MD: Diagnosis: Pneumonia due to other specified bacteria;Fever, unspecified;COPD/ Chronic obstructive pulmonary disease with (acute) exacerbation;Hypoxemia;Hypokalemia;Elevated white blood cell count Presentation: 10/13 19:11 Chief complaint: EMS states: Pt reportedly took her insulin earlier today and family ll1 reported that she had not eaten and was in and out of consciousnes. Pt was A\T\Ox4 upon EMS arrival. temp 100.9 oral bgl of 144. Coronavirus screen: At this time, the client does not indicate any symptoms associated with coronavirus-19. Ebola Screen: No symptoms or risks identified at this time. Initial Sepsis Screen: Does the patient meet any 2 criteria? Temp <36.0*C (96.8*F)) or > 38.3*C (100.9*F). Yes Does the patient have a suspected source of infection? No. Patient's initial sepsis screen is negative. Risk Assessment: Do you want to hurt yourself or someone else?. Onset of symptoms was October 13, 2022. Transition of care: patient was not received from another setting of care. 19:11 Method Of Arrival: EMS: [facility] ll1 19:11 Acuity: EMILY 3 ll1 Historical: - Allergies: 19:17 No Known Allergies; ll1 - PMHx: 19:17 Anxiety; COPD; Diabetes - IDDM; GERD; High Cholesterol; Hypertension; ll1 - PSHx: 19:17 Cholecystectomy; Stomach bypass; ll1 - Family history:: not pertinent. Screenin:17 [facility] ED Fall Risk Assessment (Adult) History of falling in the last 3 months, ll1 including since admission No falls in past 3 months (0 pts) Confusion or Disorientation No (0 pts) Score/Fall Risk Level 0 - 2 = Low Risk Oriented to surroundings, Maintained a safe environment. Abuse screen: Denies threats or abuse. Nutritional screening: No deficits noted. Tuberculosis screening: No symptoms or risk factors identified. Assessment: 19:17 General: Appears distressed, uncomfortable, Behavior is calm, cooperative, appropriate ll1 for age. Pain: Complains of pain in back Pain does not radiate. Pain currently is 10 out of 10 on a pain scale. Neuro: Level of Consciousness is awake, alert, obeys commands, Oriented to person, place, time, situation. Cardiovascular: Patient's skin is warm and dry. Respiratory: Airway is patent Respiratory effort is even, labored, Respiratory pattern is regular, symmetrical. GI: No signs and/or symptoms were reported involving the gastrointestinal system. : No signs and/or symptoms were reported regarding the genitourinary system. EENT: No signs and/or symptoms were reported regarding the EENT system. Derm: Skin is intact, Skin is pink, warm \T\ dry. 21:15 Reassessment: Patient appears in no apparent distress at this time. Patient and/or jb4 family updated on plan of care and expected duration. Pain level reassessed. Patient is alert, oriented x 3, equal unlabored respirations, skin warm/dry/pink. 22:13 Reassessment: Patient appears in no apparent distress at this time. Patient and/or jb4 family updated on plan of care and expected duration. Pain level reassessed. Patient is alert, oriented x 3, equal unlabored respirations, skin warm/dry/pink. Vital Signs: 19:11 BP 130 / 68; Pulse 80; Resp 20; Temp 103.1(O); Pulse Ox 82% on R/A; Weight 66 kg (M); ll1 Height 5 ft. 3 in. ; 21:15 BP 129 / 65; Pulse 101; Resp 19; Temp 99.1(O); Pulse Ox 97% on 2 lpm NC; jb4 22:13 BP 108 / 60; Pulse 75; Resp 20; Pulse Ox 97% on 2 lpm NC; jb4 19:11 Body Mass Index 25.77 (66.00 kg, 160.02 cm) ll1 19:11 Placed on 4L NC now satting 96% ll1 NIH Stroke Scale Scores: 19:28 NIHSS Score: 0 [facility] ED Course: 19:09 Patient arrived in ED. shelley 19:09 Alan Rubio MD is Attending Physician. [facility] 19:11 Ana Whaley RN is Primary Nurse. ll1 19:17 Triage completed. ll1 19:17 Arm band placed on right wrist. ll1 19:17 Patient has correct armband on for positive identification. Bed in low position. Call ll1 light in reach. Side rails up X 1. Client placed on continuous cardiac and pulse oximetry monitoring. NIBP monitoring applied. 19:58 SARS RAPID Sent. ll1 19:58 Flu Sent. ll1 19:58 Blood Culture Adult (2) Sent. ll1 19:58 Lactate w/ 2H reflex if indic. Sent. ll1 19:58 Lipase Sent. ll1 19:58 Urine Culture Sent. ll1 19:58 Urinalysis w/ reflexes Sent. ll1 19:58 Basic Metabolic Panel Sent. ll1 19:58 LFT's Sent. ll1 19:58 Magnesium Sent. ll1 19:58 PT-INR Sent. ll1 19:58 NT PRO-BNP Sent. ll1 19:58 Troponin HS Sent. ll1 20:21 Barrington Monzon is Hospitalizing Provider. shelley 20:37 XRAY Chest (1 view) In Process Unspecified. EDMS 22:58 No provider procedures requiring assistance completed. Patient admitted, IV remains in jb4 place. Administered Medications: 20:21 Drug: NS 0.9% IV 1000 ml Route: IV; Rate: 1 bolus; Site: right forearm; ll1 20:21 Drug: Rocephin IV 1 grams Route: IV; Rate: per protocol; Site: right forearm; ll1 20:21 Drug: Zithromax IVPB 500 mg Route: IVPB; Infused Over: 1 hrs; Site: left forearm; ll1 20:21 Drug: Famotidine IVP 20 mg Route: IVP; Site: right forearm; ll1 20:21 Drug: MethylPrednisoLONE IVP 125 mg Route: IVP; Site: right forearm; ll1 20:21 Drug: Albuterol Inhalation 5 mg Route: Inhalation; ll1 20:21 Drug: Ipratropium Inhalation Aerosol 0.5 mg Route: Inhalation; ll1 20:22 Drug: NS 0.9% IV 1000 ml Route: IV; Rate: 125 ml/hr; Site: left forearm; ll1 21:15 Not Given (Other Intervention Used): Potassium Chloride IV 20 mEq IV at per protocol jb4 once; administer over 1-2 hours 21:15 Drug: Potassium PO Effervescent Tablet 50 mEq Route: PO; jb4 21:34 Drug: Potassium Phosphate IV 15 mmol Route: IV; Rate: per protocol; Site: left forearm; jb4 Medication: 19:17 VIS not applicable for this client. ll1 Outcome: 20:22 Decision to Hospitalize by Provider. [facility] 22:58 Admitted to Med/surg accompanied by nurse, via stretcher, room 209, with oxygen, with jb4 chart. 22:58 Condition: stable 22:58 Discharge instructions given to patient, Instructed on the need for admit, Demonstrated understanding of instructions. 22:59 Patient left the ED. jb4 NIH Stroke Scale - NIH Stroke Score Date: 10/13/2022 Time: 19:28 Total Score = 0 10. Dysarthria (speech clarity - read or repeat words) - 0(Normal) 11. Extinction and Inattention (visual/tactile/auditory/spatial/personal) - 0(No abnormality) 1a. Level of Consciousness (LOC) - 0(Alert) 1b. Level of Consciousness (LOC) (Month \T\ Age) - 0(Both) 1c. LOC Commands (Open \T\ Closes Eyes/Soils Engineer) - 0(Both) 2. Best Gaze (Lateral Gaze Paresis) - 0(Normal) 3. Visual Field Loss - 0(No visual loss) 4. Facial Palsy - 0(Normal) 5a. Left Arm: Motor (10-second hold) - 0(No drift) 5b. Right Arm: Motor (10-second hold) - 0(No drift) 6a. Left Leg: Motor (5-second hold - always test supine) - 0(No drift) 6b. Right Leg: Motor (5-second hold - always test supine) - 0(No drift) 7. Limb Ataxia (finger/nose \T\ heel/villagomez - test with eyes open) - 0(Absent) 8. Sensory Loss (pinprick arms/legs/face) - 0(Normal) 9. Best Language: Aphasia (description/naming/reading) - 0(No aphasia) Initials: [facility] Signatures: Dispatcher [employer] Alan Turner MD MD cha Bryson, James RN RN jb4 Ana Whaley RN RN ll1
[2022-10-13] MEDS ORDERED: ONDANSETRON 4 MG/2 ML VIAL IV PRN (20:36)
--- NOTE | 2022-10-13 20:57 | RAD REPORT ---
EXAM DESCRIPTION: Pranav Single View10/13/2022 8:35 pm CLINICAL HISTORY: cough COMPARISON: 2021 FINDINGS: The lungs appear clear of acute infiltrate. The heart is normal size IMPRESSION: No acute abnormalities displayed
[2022-10-13] MEDS: NA CHLORIDE 0.9% 1,000 ML IV SCH (21:00)
[2022-10-13] MEDS: INSULIN -REGULAR HUMAN 50 UNIT/0.5 ML ML SQ SCH (21:00)
[2022-10-13] MEDS ORDERED: POTASSIUM 25 MEQ EFFERV TAB ONE (21:01)
[2022-10-13] MEDS ORDERED: KCL 20 MEQ/100 mL IVPB 0 ML IV ONE (21:01)
[2022-10-13 21:21] LABS: Urine Bacteria <20 /HPF (<20); Urine Bilirubin NEGATIVE (Negative); Urine Blood 2+ (Negative); Urine Clarity Extremely Turbid (Clear); Urine Color Light-Yellow (Yellow); Urine Glucose NEGATIVE (Negative); Urine Mucus Slight /HPF (None Seen); Urine Protein 1+ (Negative); Urine Urobilinogen Normal (Normal); Urine WBC Clump Few /HPF (None Seen); Urine pH 6.5 (5.0-7.0)
--- NOTE | 2022-10-13 21:31 | P.HP ---
Certification for Inpatient With expected LOS: <2 Midnights Patient will require the following post-hospital care: None Practitioner: I am a practitioner with admitting privileges, knowledge of patient current condition, hospital course, and medical plan of care. Services: Services provided to patient in accordance with Admission requirements found in Title 42 Section 412.3 of the Code of Federal Regulations Patient History Date of Service: 10/13/22 Reason for admission: Altered mental status History of Present Illness: 81 year old female with past medical history of COPD, Anxiety, IDDM, GERD, HLD, HTN, presents to the emergency room with altered mental status. She is brought by her family for "trouble concentrating." The family reports symptoms started today before coming to ER. The patient is more alert on exam, also reports mild cough, shortness of breath that is worse while laying flat and worse with exertion. She reports symptoms started about 6 weeks ago and is getting progressively worse. On arrival to ER, she had an associated fever 101.3, generalized weakness, poor appetite, muscle aches. She reports her COPD is mild, does not use home 02 or Nebulizers. She denies Chest pain, abdominal pain, nausea, vomiting, dysuria, urinary frequency or edema. Allergies No Known Allergies Allergy (Verified 09/12/22 10:41) Home Medications: Acetaminophen [Tylenol] 650 mg PO BID 07/04/16 Albuterol Sulfate [Proair Hfa] 2 in IH Q4HR 07/04/16 Cholecalciferol (Vitamin D3) [Vitamin D3] 1 cap PO DAILY 07/04/16 Cider Vinegar [Apple Cider Vinegar] 450 mg PO BID 07/04/16 Cyclosporine [Restasis] 1 drop EACH EYE BID 07/04/16 Duloxetine HCl 90 mg PO DAILY 07/04/16 Ferrous Fumarate/Vit Bcomp&C [Super B-Complex Caplet] 1 tab PO DAILY 07/04/16 Gabapentin [Gralise] 300 mg PO TID 07/04/16 Garlic 1,000 mg PO DAILY 07/04/16 Ibandronate Sodium [Boniva] 150 mg PO SEECOM 07/04/16 Magnesium Oxide [Mag 0X*] 400 mg PO DAILY 07/04/16 Melatonin 10 mg PO BEDTIME PRN 07/04/16 Montelukast Sodium [Singulair] 10 mg PO BEDTIME 07/04/16 Multivitamin [Multivitamins] 1 tab PO DAILY 07/04/16 Niacin 500 mg PO BID 07/04/16 [place]-3/Dha/Epa/Fish Oil [Fish Oil 1,000 mg Softgel] 1 tab PO DAILY 07/04/16 Simvastatin 20 mg PO BEDTIME 07/04/16 Tiotropium Br/Olodaterol HCl [Stiolto Respimat Inhal Ava] 2 in IH DAILY Turmeric/Turmeric Root Extract [Turmeric 500 mg Capsule] 500 mg PO BID 07/04/16 Ubidecarenone [Co Q-10] 2 mg PO DAILY 07/04/16 clonazePAM [Clonazepam] 1 mg PO BEDTIME 07/04/16 Nystatin 500,000 unit PO QID #1 bottle 07/07/16 Amlodipine Besylate/Benazepril [Amlodipine-Benazepril 10-40 mg] 1 cap PO DAILY 07/11/22 Fluticasone [Flonase 50MCG Nasal Ava*] 2 sprays SUSI BID 07/11/22 Metoprolol Succinate 2 tab PO DAILY 07/11/22 Omeprazole [Prilosec] 40 mg PO DAILY 07/11/22 - Past Medical/Surgical History Diabetic: Yes -: HTN -: Osteoporosis -: GERD -: Diabetes mellitus type 2 -: Hyperlipidemia -: COPD -: Anxiety -: Hysterectomy -: Cataract Sx -: Lap Band and Reversal Psychosocial/ Personal History: Patient is of 57 years, 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 -: Heart disease - Social History Alcohol use: No CD- Drugs: No Caffeine use: Yes Review of Systems General: As per HPI Physical Examination - Physical Exam General: Oriented x3, Cooperative HEENT: Atraumatic, Normocephalic, PERRLA Neck: Supple, 2+ carotid pulse no bruit Respiratory: Crackles/rales, Other (hypoxic, tachypnea, ) Capillary refill: <2 Seconds Gastrointestinal: Normal bowel sounds, Non-distended Musculoskeletal: No swelling Integumentary: No rashes, No breakdown Neurological: Normal speech, Normal strength at 5/5 x4 extr, Cranial nerves 3-12 intact - Studies Laboratory Data (last 24 hrs) 10/13/22 19:39: WBC 15.60 H, Hgb 11.0 L, Hct 33.9 L, Plt Count 155 10/13/22 19:39: Sodium 137, Potassium 2.7 L, BUN 13, Creatinine 0.82, Glucose 126 H, Magnesium 2.1, Total Bilirubin 1.5 H, AST 17, ALT 14, Alkaline Phosphatase 59, Lipase 9 L 10/13/22 19:30: Phosphorus 1.7 L 10/13/22 19:30: PT 12.0, INR 1.01 Microbiology Data (last 24 hrs): 10/13/22 19:50 Nasopharnyx Influenza Type A Antigen Screen - Final 10/13/22 19:50 Nasopharnyx Influenza Type B Antigen Screen - Final Assessment and Plan - Plan Assessment/Plan acute hypnotic respiratory failure d/t acute heart failure (new onset) Sepsis SIRS likely due to acute cystitis hypokalmemia hx COPD HTN HLD IDDM GERD Anxiety DVT prophlx Assessment/Plan Admit to med surg, tele Card consult for acute heart failure elevated BNP >5000 acute hypoxic respiratory failure d/t acute heart failure (new onset) echo in am, card consult, diuretics Sepsis likely due to acute cystitis- IV ABX, IVF sepsis bolus given in ED hypokalmemia -trend elect, replace prn hx COPD 02 keeps sats >92% prn nebs, IV Abx HTN resume approp home medications HLD IDDM Ac ACHS, SSI GERD Anxiety Diet DM Full Code DVT Lovenox - Advance Directives Does patient have a Living Will: No Does patient have a Durable POA for Healthcare: No - Code Status/Comfort Care Code Status: Full Code Physician Review: Patient Assessed, Agree with Above Assessment and Plan Critical Care: No Time Spent Managing Pts Care (In Minutes): 55
[2022-10-13] MEDS ORDERED: POTASSIUM PHOS IN 0.9 % NACL 15 MMOL/250 ML BAG IV ONE (21:33)
[2022-10-13] MEDS ORDERED: FUROSEMIDE 40 MG/4 ML VIAL IV ONE (21:39)
[2022-10-13 21:45] LABS: Blood Morphology Comment NOT SEEN (NOT SEEN); Platelet Estimate ADEQ; White Blood Cell Scan OK (OK)
[2022-10-13] MEDS ORDERED: METOPROLOL TARTRATE 5 MG/5 ML INJ IV PRN (22:11)
[2022-10-14] MEDS ORDERED: IPRATROPIUM BROM 0.5MG/2.5ML NEB PRN
[2022-10-14 00:05] VITALS: BMI 25.7
[2022-10-14] MEDS: TRAZODONE 50 MG TABLET PO SCH ×2 (00:59→20:18)
[2022-10-14] MEDS: GABAPENTIN 300 MG CAP PO SCH ×3 (00:59→20:15)
[2022-10-14] MEDS ORDERED: METHYLPREDNISOLONE 125 MG INJ IV SCH (02:00)
[2022-10-14] MEDS: clonazePAM 1 MG TAB PO SCH ×2 (02:07→20:17)
[2022-10-14] MEDS: MONTELUKAST 10 MG TAB PO SCH ×2 (02:07→14:47)
[2022-10-14] MEDS: CARBIDOPA/LEVODOPA 25/100 TAB PO SCH ×3 (02:25→20:16)
[2022-10-14] MEDS ORDERED: LOPERAMIDE HCL 2 MG CAPSULE PO STA (02:47)
[2022-10-14] MEDS: ALBUTEROL 2.5 MG/3 ML NEB SOL NEB SCH ×4 (02:50→20:00)
[2022-10-14 04:33] LABS: Absolute Lymphocytes (CBC) 0.3 K/uL (0.7-4.9); Hematocrit 31.5 % (36.0-45.0); Lymphocytes % 2.8 % (15.3-44.8); MPV 10.9 fL (7.6-11.3)
[2022-10-14] MEDS: NA CHLORIDE 0.9% 1,000 ML IV SCH (04:41)
[2022-10-14 05:09] LABS: Magnesium 1.9 mg/dL (1.6-2.4)
[2022-10-14] MEDS: INSULIN -REGULAR HUMAN 50 UNIT/0.5 ML ML SQ SCH ×4 (08:46→20:15)
[2022-10-14] MEDS: POTASS/SODIUM PHOSPHATE 1 PKT POWD.PACK PO SCH ×3 (08:47→09:50)
[2022-10-14] MEDS: DONEPEZIL HCL 5 MG TAB PO SCH ×2 (08:49→20:15)
[2022-10-14] MEDS: BENAZEPRIL 20 MG TAB PO SCH (08:49)
[2022-10-14] MEDS: PANTOPRAZOLE 40MG TABLET PO SCH (08:50)
[2022-10-14] MEDS: METOPROLOL XL 50 MG TAB PO SCH ×2 (08:50→20:17)
[2022-10-14] MEDS: DULOXETINE 30 MG CAP PO SCH (08:50)
[2022-10-14] MEDS: AMLODIPINE 10 MG TAB PO SCH (08:51)
[2022-10-14] MEDS: ENOXAPARIN 40 MG/0.4 ML SQ SCH (08:52)
[2022-10-14] MEDS: AZITHROMYCIN IV 500 MG in NA CHLORIDE 0.9% 250 ML IVPB SCH (08:55)
[2022-10-14] MEDS ORDERED: CEFTRIAXONE 1,000 MG in NA CHLORIDE 0.9% 50 ML IVPB SCH (09:00)
[2022-10-14] MEDS ORDERED: POTASSIUM CL SA 10 MEQ TAB PO ONE (09:00)
[2022-10-14] MEDS ORDERED: FUROSEMIDE 40 MG/4 ML VIAL IV SCH (09:00)
[2022-10-14] MEDS ORDERED: CEFTRIAXONE IV SCH (09:00)
[2022-10-14] MEDS ORDERED: NA CHLORIDE 0.9% IV SCH (09:00)
--- NOTE | 2022-10-14 14:44 | P.PN ---
Subjective Date of Service: 10/14/22 Chief Complaint: Altered mental status Patient states she feels better than yesterday. She states her shortness of breath has improved and she can think more clearly. Physical Examination - Vital Signs Temperature: 97.1 F Blood Pressure: 147/97 Pulse: 67 Respirations: 17 Pulse Ox (%): 97 - Studies Laboratory Data (last 24 hrs) 10/13/22 19:39: WBC 15.60 H, Hgb 11.0 L, Hct 33.9 L, Plt Count 155 10/13/22 19:39: Sodium 137, Potassium 2.7 L, BUN 13, Creatinine 0.82, Glucose 126 H, Magnesium 2.1, Total Bilirubin 1.5 H, AST 17, ALT 14, Alkaline Phosphatase 59, Lipase 9 L 10/13/22 19:30: Phosphorus 1.7 L 10/13/22 19:30: PT 12.0, INR 1.01 Microbiology Data (last 24 hrs): 10/13/22 19:30 Blood - Blood Blood Culture Gram Stain - Final 10/13/22 19:30 Blood - Blood Gram Stain - Final 10/13/22 19:30 Blood - Blood Blood Culture Gram Stain - Final 10/13/22 19:30 Blood - Blood Gram Stain - Final 10/13/22 19:50 Nasopharnyx Influenza Type A Antigen Screen - Final 10/13/22 19:50 Nasopharnyx Influenza Type B Antigen Screen - Final Assessment And Plan - Plan Physical examination General: Oriented x3, Cooperative, NAD. Neck: Supple, 2+ carotid pulse no bruit Respiratory: Bibasilar crackles/rales, adequate breath sounds bilaterally Gastrointestinal: Normal bowel sounds, Non-distended, nontender Musculoskeletal: No swelling Integumentary: No rashes, No breakdown Neurological: Normal speech, no focal motor deficit. Diagnosis Acute hypnotic respiratory failure d/t acute heart failure (new onset) Sepsis SIRS likely due to acute cystitis Gram-negative bacteremia hypokalmemia hx COPD HTN HLD IDDM GERD Anxiety Assessment/Plan I suspect acute diastolic heart failure Continue IV Lasix. Echocardiogram ordered. Cardiac monitoring Sepsis likely due to acute cystitis Continue IV Rocephin. Follow blood cultures. Replete potassium as needed. prn nebs, IV Abx for COPD. Resume home antihypertensives Insulin sliding scale for glucose management Continue home medications for GERD and anxiety.
[2022-10-14] MEDS ORDERED: MELATONIN 5 MG TABLET PO PRN (14:47)
[2022-10-14] MEDS: BUSPIRONE HCL 5 MG TABLET PO SCH ×2 (16:36→20:15)
--- NOTE | 2022-10-14 19:31 | EKG ---
Test Date: 2022-10-13 Test Time: 19:53:53 Forensic Specialist: DAVID MEASUREMENT RESULTS: Intervals: Rate: 71 KS: 154 QRSD: 82 QT: 520 QTc: 565 [place]: P: 50 KS: 154 QRS: -11 T: 70 INTERPRETIVE STATEMENTS: Sinus rhythm with premature atrial complexes Nonspecific ST and T wave abnormality Prolonged QT Abnormal ECG Compared to ECG 12/20/2021 17:39:04 Atrial premature complex(es) now present ST (T wave) deviation now present Prolonged QT interval now present Sinus bradycardia no longer present Myocardial infarct finding no longer present Electronically Signed On 10-14-22 19:28:54 CDT by Darvin Vail
[2022-10-14] MEDS ORDERED: POTASSIUM 25 MEQ EFFERV TAB PO ONE (20:00)
[2022-10-14] MEDS: CEFTRIAXONE 1,000 MG in NA CHLORIDE 0.9% 50 ML IVPB SCH (20:14)
[2022-10-14] MEDS: ATORVASTATIN 10 MG TAB PO SCH (20:15)
[2022-10-14] MEDS: ACETAMINOPHEN 500 MG TAB PO PRN (20:16)
[2022-10-14] MEDS: FLUTICASONE 50MCG NASAL SPRAY NAS SCH (20:17)
[2022-10-14] MEDS: Cyclosporine [Restasis] Droperette OPTH SCH (20:18)
[2022-10-14] MEDS ORDERED: HOME MED 1 EA UNK (Simvastatin [Simvastatin] 20 MG Tablet) PO SCH (21:00)
[2022-10-15] MEDS: ALBUTEROL 2.5 MG/3 ML NEB SOL NEB SCH ×4 (01:30→19:30)
[2022-10-15 03:42] LABS: Absolute Lymphocytes (CBC) 1.2 K/uL (0.7-4.9); Hematocrit 32.4 % (36.0-45.0); Lymphocytes % 8.4 % (15.3-44.8); MCV 89.8 fL (80-100); MPV 10.8 fL (7.6-11.3); RBC Red Blood Cell Count 3.61 M/uL (3.86-4.86)
[2022-10-15 04:19] LABS: Potassium 3.6 mEq/L (3.5-5.1)
[2022-10-15] MEDS ORDERED: POTASSIUM CL SA 10 MEQ TAB PO ONE (05:20)
--- NOTE | 2022-10-15 07:08 | P.PN ---
Date of Service: 10/15/22 Subjective: feels the same as yesterday, no significant improvement per patient at bedside states mentation is much improved / back to baseline; patient agreed no new / worsening problems feels weak /run down afebrile ROS: 10 point ROS as noted above, otherwise negative Physical Exam: GEN: Alert, oriented, NAD HEENT: Normal conjunctiva, sclera anicteric CV: Regular rate and rhythm, no edema Pulm: Nonlabored respirations on 2L NC, diminished at bases bilaterally ABD: Soft, nontender, nondistended Neuro: Normal speech, normal affect vitals reviewed Problem List: Acute hypnotic respiratory failure d/t acute heart failure (new onset) Sepsis SIRS due to acute cystitis Gram-negative bacteremia hx of recurrent UTIs hypokalmemia COPD Hypertension Hyperlipidemia IDDM2 GERD Anxiety Parkinson's Acute hypnotic respiratory failure d/t acute heart failure (new onset), unknown type felt to be CHF due to HPI, several weeks of dyspnea CXR (10/14): no acute abnormalities started IV lasix patient reportedly feels slightly better Cardiology consulted Echo(10/14): pending monitor on telemetry possibly from COPD; patient has h/o COPD Feels like getting deep breath is "tight" at timesj does not appear fluid overloaded PRN nebs Sepsis, SIRS due to acute cystitis Gram-negative bacteremia hx of recurrent UTIs blood cultures(10/13): +GNR urine culture(10/13): mixed lisa Continue IV Rocephin and Azithromycin (10/14-) leukocytosis slightly worse 10/15, patient without new/worsening symptoms fever curve improved monitor for now, if any worse will broaden antibiotics culture should result in next 24hrs ID consulted hypokalmemia Replete as needed IDDM2 Insulin sliding scale Hypertension Hyperlipidemia GERD Anxiety Continue home medications VTE: Lovenox Code: Full Dispo: Home 1-2 days pending culture results, afebrile > 24hrs, further improvement
[2022-10-15] MEDS: INSULIN -REGULAR HUMAN 50 UNIT/0.5 ML ML SQ SCH ×4 (07:30→20:26)
[2022-10-15] MEDS: Mirabegron [Myrbetriq] 50 MG Tab.Er.24h PO SCH (09:00)
[2022-10-15] MEDS: Cyclosporine [Restasis] Droperette OPTH SCH ×2 (09:00→20:25)
[2022-10-15] MEDS: AZITHROMYCIN IV 500 MG in NA CHLORIDE 0.9% 250 ML IVPB SCH (09:16)
[2022-10-15] MEDS: VITAMIN B COMPLEX 1 CAP PO SCH (09:17)
[2022-10-15] MEDS: AMLODIPINE 10 MG TAB PO SCH (09:18)
[2022-10-15] MEDS: OXYCODONE HCL 5 MG TAB PO PRN (09:18)
[2022-10-15] MEDS: BUSPIRONE HCL 5 MG TABLET PO SCH ×4 (09:19→20:25)
[2022-10-15] MEDS: BENAZEPRIL 20 MG TAB PO SCH (09:19)
[2022-10-15] MEDS: FUROSEMIDE 40 MG/4 ML VIAL IV SCH (09:20)
[2022-10-15] MEDS: CEFTRIAXONE 1,000 MG in NA CHLORIDE 0.9% 50 ML IVPB SCH ×2 (09:20→20:26)
[2022-10-15] MEDS: CARBIDOPA/LEVODOPA 25/100 TAB PO SCH ×2 (09:20→20:24)
[2022-10-15] MEDS: DONEPEZIL HCL 5 MG TAB PO SCH ×2 (09:20→20:24)
[2022-10-15] MEDS: GABAPENTIN 300 MG CAP PO SCH ×2 (09:20→20:23)
[2022-10-15] MEDS: FOLIC ACID 1 MG TABLET PO SCH (09:20)
[2022-10-15] MEDS: VITAMIN D 5,000 UNIT CAP PO SCH (09:20)
[2022-10-15] MEDS: ENOXAPARIN 40 MG/0.4 ML SQ SCH (09:21)
[2022-10-15] MEDS: PANTOPRAZOLE 40MG TABLET PO SCH (09:22)
[2022-10-15] MEDS: MEMANTINE HCL 10 MG TABLET PO SCH (09:22)
[2022-10-15] MEDS: METOPROLOL XL 50 MG TAB PO SCH ×2 (09:22→20:22)
--- NOTE | 2022-10-15 09:23 | P.CNS ---
Date of Consult: 10/15/22 Reason for Consult: Bacteremia Chief Complaint: Altered mental status History of Present Illness: Patient is a 81 yo female with a history of COPD, insulin dependent diabetes, HTN, HLD, GERD and anxiety who was brought to the ED by family for altered mental status. Patient reported symptoms of shortness of breath and cough over the last few weeks. XR chest obtained revealing no acute abnormalities. Temp on arrival 103.1 F. Blood cultures revealing gram negative bacteremia and ID was consulted. Allergies No Known Allergies Allergy (Verified 09/12/22 10:41) Home medications list reviewed: Yes Home Medications: Acetaminophen [Tylenol] 650 mg PO BID 07/04/16 Cholecalciferol (Vitamin D3) [Vitamin D3] 1 cap PO DAILY 07/04/16 Cyclosporine [Restasis] 1 drop EACH EYE BID 07/04/16 Duloxetine HCl 90 mg PO DAILY 07/04/16 Ferrous Fumarate/Vit Bcomp&C [Super B-Complex Caplet] 1 tab PO DAILY 07/04/16 Gabapentin [Gralise] 600 mg PO BID 07/04/16 Ibandronate Sodium [Boniva] 150 mg PO SEECOM 07/04/16 Melatonin 10 mg PO BEDTIME PRN 07/04/16 Montelukast Sodium [Singulair] 10 mg PO BEDTIME 07/04/16 Multivitamin [Multivitamins] 1 tab PO DAILY 07/04/16 Simvastatin 20 mg PO BEDTIME 07/04/16 Tiotropium Br/Olodaterol HCl [Stiolto Respimat Inhal [place]] 2 in IH DAILY 07/04/16 clonazePAM [Clonazepam] 1 mg PO BEDTIME 07/04/16 Nystatin 500,000 unit PO QID #1 bottle 07/07/16 Amlodipine Besylate/Benazepril [Amlodipine-Benazepril 10-40 mg] 1 cap PO DAILY 07/11/22 Fluticasone [Flonase 50MCG Nasal [place]*] 2 sprays SUSI BEDTIME 07/11/22 Metoprolol Succinate 1 tab PO BID 07/11/22 Omeprazole [Prilosec] 40 mg PO DAILY 07/11/22 Buspirone HCl [Buspar*] 5 mg PO QID 10/13/22 Carbidopa/Levodopa [Carbidopa-Levodopa 25-100 Tab] 25 - 100 mg PO BID 10/13/22 Donepezil [Aricept*] 10 mg PO BID 10/13/22 Folic Acid 1 mg PO DAILY 10/13/22 Memantine HCl [Namenda*] 10 mg PO DAILY 10/13/22 Methotrexate Sodium [Methotrexate] 2.5 mg PO EVERY 7TH DAY 10/13/22 Mirabegron [Myrbetriq] 50 mg PO DAILY 10/13/22 Montelukast [Singulair*] 10 mg PO NOON 10/13/22 Omeprazole [Prilosec] 40 mg PO DAILY 10/13/22 Oxycodone HCl/Acetaminophen [Oxycodone-Acetaminophen 10-325] 1 tab PO DAILY PRN 10/13/22 Trazodone [Desyrel*] 100 mg PO BEDTIME 10/13/22 - Past Medical/Surgical History Diabetic: Yes -: HTN -: Osteoporosis -: GERD -: Diabetes mellitus type 2 -: Hyperlipidemia -: COPD -: Anxiety -: Neuropathy -: Arthritis -: Chronic Back Pain -: Frequent UTI's -: Crohn's disease -: Hysterectomy -: Cataract Sx -: Lap Band and Reversal -: Hip Sx to R hip Psychosocial/ Personal History: Patient is of 57 years, 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 Medical History: Heart disease, Hypertension - Social History Smoking Status: Former smoker Alcohol use: No CD- Drugs: No Caffeine use: Yes Place of Residence: Home Review of Systems 10-point ROS is otherwise unremarkable General: Weakness Gastrointestinal: Nausea, Abdominal Pain Physical Examination Temp Pulse Resp BP Pulse Ox 98.1 F 62 16 157/64 H 99 10/15/22 08:00 10/15/22 08:00 10/15/22 08:00 10/15/22 08:00 10/15/22 08:00 General: Alert, In no apparent distress, Oriented x3 HEENT: Atraumatic, Normocephalic Neck: Supple, JVD not distended Respiratory: Normal air movement, Diminished, Other (2L NC) Cardiovascular: No edema, Normal pulses Gastrointestinal: Normal bowel sounds, Soft and benign Musculoskeletal: No clubbing, No swelling Integumentary: Skin lesion (small scattered skin lesions bilateral arms) Neurological: Normal speech, Normal tone, Normal affect Laboratory Data - Reviewed Microbiology Data - Reviewed Imagings Data: - Reviewed Medication List: Reviewed Conclusions/Impression: Problem List Sepsis Bacteremia COPD Hypertension Insulin Dependent Diabetes Mellitus Hyperlipidemia Anxiety Parkinson's Bacteremia - Blood cultures 10/13: Gram negative rods - Repeat blood culture 10/14: Pending - Urine culture 10/13: Mixed lisa. [place] count <10,000 CFU/mL - XR Chest 10/13: "The lungs appear clear of acute infiltrate. The heart is normal size" - Currently on Rocephin and Azithromycin (started 10/14) - Leukocytosis (WBC 14.8) - Afebrile 24 hours Recommendations - Continue Rocephin for now. Awaiting final culture and sensitivity reports. Will adjust antibiotics as appropriate. - Monitor WBC and fever trends - Nutritional supplementation as needed ID will follow up and monitor patient closely. Case discussed with Devin Campo
[2022-10-15] MEDS: DULOXETINE 30 MG CAP PO SCH (09:26)
[2022-10-15] MEDS ORDERED: MONTELUKAST 10 MG TAB PO SCH (12:00)
[2022-10-15] MEDS: MONTELUKAST 10 MG TAB PO SCH (14:16)
--- NOTE | 2022-10-15 15:19 | CON ---
Date of Consultation: 10/15/2022 Reason For Consultation: Evaluate for heart failure. History Of Present Illness: This is a 81-year-old female, who was brought into the emergency room [facility] to altered mental status. Her past medical history includes COPD, diabetes, acid reflux, hypertens ion, dyslipidemia. She apparently was running fever as high as 101.3 and she is having some shortnes s of breath. Denies having any chest pain. No orthopnea. No lower extremity edema. Past Medical History: As outlined above in HPI. Medications: Refer to reconciliation sheet for detailed list. Allergies: NO KNOWN DRUG ALLERGIES. Family History: No premature coronary artery disease or cancer. Social History: She does not smoke or drink. Does not use any drugs. Review of Systems: All systems reviewed and they were negative except what mentioned in HPI. Physical Examination: Vital Signs: Reviewed. Head and Neck: Pupils are equal, reactive to light. Intact eye movements. No JVD. No cervical lym phadenopathy. Neck is supple. Thyroid is not enlarged. Lungs: Clear to auscultation bilaterally. No rhonchi, wheezing, or crackles. No accessory muscle u se. Heart: Irregularly irregular. No extra sounds. Abdomen: Soft, nontender. Bowel sounds positive. No organomegaly. No masses or hernia. No rigidi ty or rebound. Extremities: Trace edema bilaterally. No clubbing or cyanosis. Intact pulses. Skin: No rash. Neurologic: Alert, awake, oriented x3. No acute focal deficits appreciated. Investigations: NT-proBNP is 3746. BUN is 14, creatinine 0.78, and hemoglobin is 10.8. Assessment And Recommendations: 1.Elevated NT-proBNP. The patient has chronic diastolic heart failure, but she appears to be euvole yanni, NYHA Class 2. No further adjustment to management is recommended at this point. I will continu e the Lasix, however, switch it to oral 40 mg by mouth daily as a maintenance treatment and low-salt diet encouraged. 2.Atrial fibrillation, new onset. Start sotalol 80 mg twice a day and taper down the metoprolol and start her on Eliquis 5 mg twice a day. 3.Dyslipidemia. Continue statin with Lipitor 40 mg at bedtime. 4.Hypertension. Blood pressure is borderline elevated. Should improve further with sotalol. SR/MODL Voice ID: [id number] Report ID: [id number]
[2022-10-15] MEDS: Oxycodone HCl/Acetaminophen 1 TAB TAB PO PRN (15:36)
[2022-10-15] MEDS: ATORVASTATIN 10 MG TAB PO SCH (20:23)
[2022-10-15] MEDS: TRAZODONE 50 MG TABLET PO SCH (20:23)
[2022-10-15] MEDS: clonazePAM 1 MG TAB PO SCH (20:24)
[2022-10-15] MEDS: FLUTICASONE 50MCG NASAL SPRAY NAS SCH (20:25)
[2022-10-15] MEDS ORDERED: NA CHLORIDE 0.9% 100 ML ONE (20:39)
[2022-10-16] MEDS: ALBUTEROL 2.5 MG/3 ML NEB SOL NEB SCH ×4 (01:10→19:20)
[2022-10-16 03:33] LABS: Absolute Lymphocytes (CBC) 0.8 K/uL (0.7-4.9); Lymphocytes % 8.2 % (15.3-44.8); MCV 90.6 fL (80-100); MPV 10.3 fL (7.6-11.3); RBC Red Blood Cell Count 3.87 M/uL (3.86-4.86)
[2022-10-16 03:57] LABS: Magnesium 2.1 mg/dL (1.6-2.4)
[2022-10-16] MEDS: SOTALOL HCL 80 MG TAB PO SCH ×2 (06:36→17:46)
--- NOTE | 2022-10-16 06:48 | P.PN ---
Date of Service: 10/16/22 Subjective: not feeling well today feels nauseated, minimal appetite today; states chronics meds make her feels this way, but this is slightly worse than usual new onset afib noted yesterday, remains in afib, HR <100 overnight; reports intermittent episodes of lightheadedness and dyspnea over last few weeks afebrile ROS: 10 point ROS as noted above, otherwise negative Physical Exam: GEN: Alert, oriented, appears fatigued HEENT: Normal conjunctiva, sclera anicteric CV: Irregularly Irregular rate and rhythm, no edema Pulm: Nonlabored respirations on 2L NC, diminished at bases bilaterally, clear ABD: Soft, mild tenderness suprapubic area, non-distended Neuro: Normal speech, normal affect vitals reviewed Problem List: Sepsis secondary to UTI, E.coli bacteremia Acute metabolic encephalopathy secondary to UTI A-fib, new onset Acute hypoxic respiratory failure d/t chronic diastolic heart failure hx of recurrent UTIs Hypokalemia COPD, chronic Hypertension Hyperlipidemia IDDM2 GERD Anxiety Parkinson's Sepsis secondary to UTI, E.coli bacteremia Acute metabolic encephalopathy secondary to UTI hx of recurrent UTIs blood cultures(10/13): E. coli intermediate resistance to unasyn/ancef ID consulted continue rocephin (10/14-) urine culture(10/13): mixed lisa leukocytosis improving, afebrile will discuss further with ID, may need IV antibiotics / PICC patient with some loose stool today Acute hypoxic respiratory failure d/t afib / D-CHF / COPD felt to be CHF due to HPI, several weeks of dyspnea; now in new afib; may have had undiagnosed afib, paroxysmal vs COPD CXR (10/14): no acute abnormalities Cardiology consulted continue PO lasix Echo(10/14): 75% EF, normal, no effusions monitor on telemetry Feels like getting deep breath is "tight" at times does not appear fluid overloaded PRN nebs PT consulted A-fib, new onset Cardio following recommends starting sotalol BID and decrease metoprolol (10/16) started eliquis (10/16) monitor on telemetry Hypokalmemia Replete as needed IDDM2 Insulin sliding scale Hypertension Hyperlipidemia GERD Anxiety Continue home medications VTE: Eliquis Code: Full Dispo: Home ~ 2 days pending afebrile > 24hrs, improved control of heart rate/rhythm PT eval patient reports feeling very week, may need home health/PT vs SNF
--- NOTE | 2022-10-16 06:53 | ECHO ---
HEIGHT: 5 ft 3 in WEIGHT: 145 lb 8 oz DATE OF STUDY: 10/14/[address]: Katarina Salcido SEMICONDUCTOR DIES LOADERCatarino 2-DIMENSIONAL: YES M.MODE: YES DOPPLER: YES COLOR FLOW: YES TDS: PORTABLE: YES DEFINITY: BUBBLE STUDY: DIAGNOSIS: HEART FAILURE, ELEVATED BNP CARDIAC HISTORY: CATHERIZATION: NO SURGERY: NO PROSTHETIC VALVE: NO PACEMAKER: NO MEASUREMENTS (cm) DIASTOLIC (NORMALS) SYSTOLIC (NORMALS) IVSd 0.9 (0.6-1.2) LA Diam 3.7 (1.9-4.0) LVEF 75% LVIDd 4.3 (3.5-5.7) LVIDs 2.4 (2.0-3.5) %FS 43% LVPWd 0.9 (0.6-1.2) Ao Diam 2.4 (2.0-3.7) 2 DIMENSIONAL ASSESSMENT: RIGHT ATRIUM: NORMAL LEFT ATRIUM: NORMAL RIGHT VENTRICLE: NORMAL LEFT VENTRICLE: NORMAL TRICUSPID VALVE: NORMAL MITRAL VALVE: NORMAL PULMONIC VALVE: NORMAL AORTIC VALVE: NORMAL PERICARDIAL EFFUSION: NONE AORTIC ROOT: NORMAL LEFT VENTRICULAR WALL MOTION: NORMAL DOPPLER/COLOR FLOW: NORMAL COMMENTS: 1. NORMAL 2-DIMENSIONAL ECHOCARDIOGRAM WITH DOPPLER. 2. NO WALL MOTION ABNORMALITY 3. NO EFFUSION TECHNOLOGIST: ARACELI GARNICA
[2022-10-16] MEDS: INSULIN -REGULAR HUMAN 50 UNIT/0.5 ML ML SQ SCH ×4 (07:30→20:06)
[2022-10-16] MEDS: CEFTRIAXONE 1,000 MG in NA CHLORIDE 0.9% 50 ML IVPB SCH ×2 (08:56→19:50)
[2022-10-16] MEDS: VITAMIN D 5,000 UNIT CAP PO SCH (08:59)
[2022-10-16] MEDS: GABAPENTIN 300 MG CAP PO SCH ×2 (08:59→19:49)
[2022-10-16] MEDS: CARBIDOPA/LEVODOPA 25/100 TAB PO SCH ×2 (09:00→19:56)
[2022-10-16] MEDS: Mirabegron [Myrbetriq] 50 MG Tab.Er.24h PO SCH (09:00)
[2022-10-16] MEDS: Cyclosporine [Restasis] Droperette OPTH SCH ×2 (09:00→19:56)
[2022-10-16] MEDS: DONEPEZIL HCL 5 MG TAB PO SCH ×2 (09:00→19:49)
[2022-10-16] MEDS: METOPROLOL XL 50 MG TAB PO SCH (09:01)
[2022-10-16] MEDS: FOLIC ACID 1 MG TABLET PO SCH (09:02)
[2022-10-16] MEDS: BENAZEPRIL 20 MG TAB PO SCH (09:03)
[2022-10-16] MEDS: VITAMIN B COMPLEX 1 CAP PO SCH (09:04)
[2022-10-16] MEDS: MEMANTINE HCL 10 MG TABLET PO SCH (09:04)
[2022-10-16] MEDS: BUSPIRONE HCL 5 MG TABLET PO SCH ×4 (09:05→19:48)
[2022-10-16] MEDS: PANTOPRAZOLE 40MG TABLET PO SCH (09:05)
[2022-10-16] MEDS: DULOXETINE 30 MG CAP PO SCH (09:06)
[2022-10-16] MEDS: AMLODIPINE 10 MG TAB PO SCH (09:07)
[2022-10-16] MEDS: APIXABAN 5 MG TABLET PO SCH ×2 (09:07→19:49)
[2022-10-16] MEDS: FUROSEMIDE 40 MG/4 ML VIAL IV SCH (09:08)
[2022-10-16] MEDS: Oxycodone HCl/Acetaminophen 1 TAB TAB PO PRN (09:32)
[2022-10-16] MEDS: OXYCODONE HCL 5 MG TAB PO PRN (09:35)
--- NOTE | 2022-10-16 09:55 | P.PN ---
Date of Service: 10/16/22 Chief Complaint: Altered mental status Subjective: Patient seen and examined at bedside. Working with physical therapy. Patient reports diarrhea after antibiotic administration. New onset atrial fibrillation yesterday. Physical Examination Temp Pulse Resp BP Pulse Ox 96.6 F L 76 16 133/74 96 10/16/22 08:00 10/16/22 09:08 10/16/22 09:35 10/16/22 09:08 10/16/22 09:35 General: Alert, In no apparent distress, Oriented x3 HEENT: Atraumatic, Normocephalic Neck: Supple, JVD not distended Respiratory: Normal air movement, Diminished, Other (2L NC) Cardiovascular: No edema, Normal pulses Gastrointestinal: Normal bowel sounds, Soft and benign Musculoskeletal: No clubbing, No swelling Integumentary: Skin lesion (small scattered skin lesions bilateral arms) Neurological: Normal speech, Normal tone, Normal affect Laboratory Data - Reviewed Microbiology Data - Reviewed Imagings Data: - Reviewed Medication List: Reviewed Assessment and Plan Problem List Sepsis Bacteremia COPD Hypertension Insulin Dependent Diabetes Mellitus Hyperlipidemia Anxiety Parkinson's Bacteremia - Blood cultures 10/13: Escherichia coli - Repeat blood culture 10/14: Escherichia coli - Urine culture 10/13: Mixed lisa. [place] count <10,000 CFU/mL - XR Chest 10/13: "The lungs appear clear of acute infiltrate. The heart is normal size" - Currently on Rocephin (10/14) - Leukocytosis improving (WBC 14.8 -> 10.2) - Afebrile Recommendations - Continue Rocephin for now. Patient with diarrhea following antibiotic administration. Will start on probiotic. If diarrhea persists, may need to continue with IV antibiotic for duration of antibiotic therapy. - Monitor WBC and fever trends ID will follow up and monitor patient closely. Case discussed with Devin Campo
[2022-10-16] MEDS ORDERED: ALBUTEROL 2.5 MG/3 ML NEB SOL NEB PRN (11:00)
[2022-10-16] MEDS: MONTELUKAST 10 MG TAB PO SCH (13:38)
--- NOTE | 2022-10-16 17:58 | PN ---
Date of Progress Note: 10/16/2022 Subjective: Seen by bedside. She converted to sinus rhythm. Review of Systems: No chest pain, shortness of breath, orthopnea, cough. No nausea, vomiting, diarrhea. All other syst ems reviewed and they were negative. Physical Examination: Vital Signs: Reviewed. Head and Neck: Pupils are equal, reactive to light. Intact eye movements. No JVD. No cervical lym phadenopathy. Neck is supple. Thyroid is not enlarged. Lungs: Clear to auscultation bilaterally. No rhonchi, wheezing, or crackles. No accessory muscle u se. Heart: Regular rate and rhythm. No extra sounds. Abdomen: Soft, nontender. Bowel sounds positive. No organomegaly. No masses or hernia. No rigidi ty or rebound. Extremities: No edema, clubbing, or cyanosis. Intact pulses. Skin: No rash. Neurologic: Alert, awake, oriented x3. No acute focal deficits appreciated. Investigations: Labs were reviewed. Assessment And Recommendations: 1.Atrial fibrillation with rapid ventricular response. Now, she converted to sinus rhythm. Continu e sotalol and Eliquis. 2.Chronic diastolic heart failure. She is NYHA Class 2. Recommend to continue oral Lasix. 3.Hypertension. Blood pressure is controlled. Continue current management. The patient can be released from Cardiology standpoint to follow up with me in the offic e in 4 weeks post discharge. SR/MODL Voice ID: [id number] Report ID: [id number]
[2022-10-16] MEDS: ATORVASTATIN 10 MG TAB PO SCH (19:49)
[2022-10-16] MEDS: clonazePAM 1 MG TAB PO SCH (19:49)
[2022-10-16] MEDS: TRAZODONE 50 MG TABLET PO SCH (19:49)
[2022-10-16] MEDS: FLUTICASONE 50MCG NASAL SPRAY NAS SCH (19:50)
[2022-10-16] MEDS ORDERED: METOPROLOL XL 25 MG TAB PO SCH (21:00)
[2022-10-17] MEDS: ALBUTEROL 2.5 MG/3 ML NEB SOL NEB SCH ×4 (01:10→20:50)
[2022-10-17 03:12] LABS: Absolute Lymphocytes (CBC) 1.1 K/uL (0.7-4.9); Hematocrit 37.1 % (36.0-45.0); Lymphocytes % 11.1 % (15.3-44.8); MCV 91.5 fL (80-100); MPV 10.6 fL (7.6-11.3); RBC Red Blood Cell Count 4.06 M/uL (3.86-4.86)
[2022-10-17 03:26] LABS: Magnesium 2.4 mg/dL (1.6-2.4); Potassium 3.4 mEq/L (3.5-5.1)
[2022-10-17] MEDS: SOTALOL HCL 80 MG TAB PO SCH ×3 (05:20→18:22)
[2022-10-17] MEDS ORDERED: POTASSIUM CL SA 10 MEQ TAB PO ONE (06:29)
--- NOTE | 2022-10-17 07:15 | P.PN ---
Date of Service: 10/17/22 Subjective: feeling a little better today, tired nausea, abdominal pain slowly improving; +afebrile reports episodes of watery diarrhea shortly after administration of antibiotics; ~3 episodes yesterday, 1 so far today states "always happens with antibiotics" feeling weak, working with PT; SOB with exertion converted to sinus rhythm last night, HR in 50s ROS: 10 point ROS as noted above, otherwise negative Physical Exam: GEN: Alert, oriented, appears fatigued HEENT: Normal conjunctiva, sclera anicteric CV: regular rate/rhythm, no edema Pulm: Nonlabored respirations on 2L NC, diminished at bases bilaterally, clear ABD: Soft, mild tenderness suprapubic area, non-distended Neuro: Normal speech, normal affect vitals reviewed Problem List: Sepsis secondary to UTI, E.coli bacteremia Acute metabolic encephalopathy secondary to UTI A-fib, new onset Acute hypoxic respiratory failure d/t chronic diastolic heart failure hx of recurrent UTIs Hypokalemia COPD, chronic Hypertension Hyperlipidemia IDDM2 GERD Anxiety Parkinson's Sepsis secondary to UTI, E.coli bacteremia Acute metabolic encephalopathy secondary to UTI hx of recurrent UTIs blood cultures(10/13): E. coli intermediate resistance to unasyn/ancef ID consulted continue IV rocephin (10/14 - ~10/28) for 2 weeks total recommend IV given patient's h/o diarrhea with antibiotics and current diarrhea to ensure absorption/delivery urine culture(10/13): mixed lisa leukocytosis improving, afebrile episodes of watery diarrhea shortly after administration of antibiotics; ~3 episodes yesterday, 1 so far today PICC line ordered 10/17 Acute hypoxic respiratory failure d/t afib / D-CHF / COPD initially felt to be CHF due to HPI, several weeks of dyspnea; now in new afib; may have had undiagnosed afib, paroxysmal vs COPD CXR (10/14): no acute abnormalities Cardiology consulted continue PO lasix Echo(10/14): 75% EF, normal, no effusions monitor on telemetry Feels like getting deep breath is "tight" at times does not appear fluid overloaded PRN nebs PT consulted A-fib, new onset Cardio following continue sotalol BID, decreased to 40mg BID (10/17) due to low HR continue eliquis monitor on telemetry remains in normal sinus rhythm Hypokalmemia Replete as needed IDDM2 Insulin sliding scale Hypertension Hyperlipidemia GERD Anxiety Continue home medications VTE: Eliquis Code: Full Dispo: IPR ~ 2 days pending afebrile > 24hrs, needing PICC line, improvement of diarrhea
[2022-10-17] MEDS: INSULIN -REGULAR HUMAN 50 UNIT/0.5 ML ML SQ SCH ×4 (07:30→21:00)
[2022-10-17] MEDS: CEFTRIAXONE 1,000 MG in NA CHLORIDE 0.9% 50 ML IVPB SCH ×2 (08:19→21:54)
[2022-10-17] MEDS: FUROSEMIDE 40 MG/4 ML VIAL IV SCH (08:22)
[2022-10-17] MEDS: DULOXETINE 30 MG CAP PO SCH (08:22)
[2022-10-17] MEDS: BUSPIRONE HCL 5 MG TABLET PO SCH ×4 (08:23→21:56)
[2022-10-17] MEDS: VITAMIN B COMPLEX 1 CAP PO SCH (08:24)
[2022-10-17] MEDS: AMLODIPINE 10 MG TAB PO SCH (08:24)
[2022-10-17] MEDS: APIXABAN 5 MG TABLET PO SCH ×2 (08:24→21:56)
[2022-10-17] MEDS: DONEPEZIL HCL 5 MG TAB PO SCH ×2 (08:25→21:56)
[2022-10-17] MEDS: PANTOPRAZOLE 40MG TABLET PO SCH (08:25)
[2022-10-17] MEDS: VITAMIN D 5,000 UNIT CAP PO SCH (08:26)
[2022-10-17] MEDS: BENAZEPRIL 20 MG TAB PO SCH (08:27)
[2022-10-17] MEDS: GABAPENTIN 300 MG CAP PO SCH ×2 (08:28→21:56)
[2022-10-17] MEDS: MEMANTINE HCL 10 MG TABLET PO SCH (08:28)
[2022-10-17] MEDS: CARBIDOPA/LEVODOPA 25/100 TAB PO SCH ×2 (08:28→21:56)
[2022-10-17] MEDS: FOLIC ACID 1 MG TABLET PO SCH (08:28)
[2022-10-17] MEDS: Oxycodone HCl/Acetaminophen 1 TAB TAB PO PRN (09:17)
[2022-10-17] MEDS: OXYCODONE HCL 5 MG TAB PO PRN (09:17)
[2022-10-17] MEDS: Mirabegron [Myrbetriq] 50 MG Tab.Er.24h PO SCH (09:17)
[2022-10-17] MEDS: Cyclosporine [Restasis] Droperette OPTH SCH ×2 (09:19→21:52)
--- NOTE | 2022-10-17 12:13 | EKG ---
Test Date: 2022-10-17 Test Time: 06:18:40 Home Care Scheduler: JUANA MEASUREMENT RESULTS: Intervals: Rate: 56 TN: 168 QRSD: 76 QT: 496 QTc: 478 [place]: P: 61 TN: 168 QRS: 66 T: 30 INTERPRETIVE STATEMENTS: Sinus bradycardia Cannot rule out Anterior infarct, age undetermined Abnormal ECG Compared to ECG 10/13/2022 19:53:53 Myocardial infarct finding now present Sinus rhythm no longer present Atrial premature complex(es) no longer present ST (T wave) deviation no longer present Prolonged QT interval no longer present Electronically Signed On 10-17-22 12:11:47 CDT by Vel Quinones
[2022-10-17] MEDS: MONTELUKAST 10 MG TAB PO SCH (12:26)
--- NOTE | 2022-10-17 15:36 | P.PN ---
Date of Service: 10/17/22 Chief Complaint: Altered mental status Subjective: Patient seen and examined at bedside. No new changes. at bedside. Patient reports continued diarrhea. Decreased appetite. Physical Examination Temp Pulse Resp BP Pulse Ox 98.7 F 57 16 124/55 L 99 10/17/22 12:00 10/17/22 12:00 10/17/22 12:00 10/17/22 12:00 10/17/22 12:00 General: Alert, In no apparent distress, Oriented x3 HEENT: Atraumatic, Normocephalic Neck: Supple, JVD not distended Respiratory: Normal air movement, Diminished, Other (2L NC) Cardiovascular: No edema, Normal pulses Gastrointestinal: Normal bowel sounds, Soft and benign Musculoskeletal: No clubbing, No swelling Integumentary: Skin lesion (small scattered skin lesions bilateral arms) Neurological: Normal speech, Normal tone, Normal affect Laboratory Data - Reviewed Microbiology Data - Reviewed Imagings Data: - Reviewed Medication List: Reviewed Assessment and Plan Problem List Sepsis Bacteremia COPD Hypertension Insulin Dependent Diabetes Mellitus Hyperlipidemia Anxiety Parkinson's Bacteremia - Blood cultures 10/13: Escherichia coli - Repeat blood culture 10/14: Escherichia coli - Urine culture 10/13: Mixed lisa. [place] count <10,000 CFU/mL - XR Chest 10/13: "The lungs appear clear of acute infiltrate. The heart is normal size" - Currently on Rocephin (10/14) - Leukocytosis resolved (WBC 9.6) - Afebrile Recommendations - Continue Rocephin for now. Due to comorbidities including Diabetes, continue antibiotics for 2 weeks duration. Patient with diarrhea following antibiotic administration. Will start on probiotic. If diarrhea persists, will need to continue with IV antibiotic for duration of antibiotic therapy. - Monitor WBC and fever trends ID will follow up and monitor patient closely. Case discussed with Devin Campo
[2022-10-17] MEDS: LACTOBACILLUS/ACIDOPHILUS TAB PO SCH (16:47)
[2022-10-17] MEDS ORDERED: POTASSIUM 25 MEQ EFFERV TAB PO ONE (19:46)
[2022-10-17] MEDS: IPRATROPIUM BROM 0.5MG/2.5ML NEB PRN (20:50)
[2022-10-17] MEDS: TRAZODONE 50 MG TABLET PO SCH (21:00)
[2022-10-17] MEDS: FLUTICASONE 50MCG NASAL SPRAY NAS SCH (21:51)
[2022-10-17] MEDS: clonazePAM 1 MG TAB PO SCH (21:56)
[2022-10-17] MEDS: ATORVASTATIN 10 MG TAB PO SCH (21:56)
[2022-10-17] MEDS: ACETAMINOPHEN 500 MG TAB PO PRN (22:05)
[2022-10-17] MEDS: Mupirocin NASAL 2 APPL/1 GM TUBE NAS SCH (22:16)
[2022-10-18] MEDS: ALBUTEROL 2.5 MG/3 ML NEB SOL NEB SCH ×4 (02:00→20:00)
[2022-10-18 02:51] LABS: Absolute Lymphocytes (CBC) 1.3 K/uL (0.7-4.9); Hematocrit 32.1 % (36.0-45.0); MCV 88.5 fL (80-100); MPV 10.5 fL (7.6-11.3); RBC Red Blood Cell Count 3.63 M/uL (3.86-4.86)
[2022-10-18 03:08] LABS: AST/SGOT 11 U/L (15-37); Albumin 2.5 g/dL (3.4-5.0); Alkaline Phosphatase 60 U/L (45-117); BUN Blood Urea Nitrogen 18 mg/dL (7-18); Bicarbonate 36 mEq/L (21-32); Bilirubin Total 0.4 mg/dL (0.2-1.0); Glomerular Filtration Rate 86 ml/min (=/>90); Glucose Level 120 mg/dL (74-106); Potassium 3.5 mEq/L (3.5-5.1); Protein, Total 6.2 g/dL (6.4-8.2); Sodium Level 140 mEq/L (136-145)
[2022-10-18 03:09] LABS: ALT/SGPT < 6 U/L (13-56)
[2022-10-18] MEDS: SOTALOL HCL 80 MG TAB PO SCH ×2 (05:17→18:08)
--- NOTE | 2022-10-18 06:49 | P.PN ---
Date of Service: 10/18/22 Subjective: doing okay, slept well overnight nausea, abdominal pain slowly improving; no diarrhea this morning so far heart rate/rhythm improving afebrile ROS: 10 point ROS as noted above, otherwise negative Physical Exam: GEN: Alert, oriented, appears fatigued HEENT: Normal conjunctiva, sclera anicteric CV: regular rate/rhythm, no edema Pulm: Nonlabored respirations on 3L NC, diminished at bases bilaterally, clear ABD: Soft, mild tenderness suprapubic area, non-distended Neuro: Normal speech, normal affect vitals reviewed Problem List: Sepsis secondary to UTI, E.coli bacteremia Acute metabolic encephalopathy secondary to UTI A-fib, new onset Acute hypoxic respiratory failure d/t chronic diastolic heart failure hx of recurrent UTIs Hypokalemia COPD, chronic Hypertension Hyperlipidemia IDDM2 GERD Anxiety Parkinson's Sepsis secondary to UTI, E.coli bacteremia Acute metabolic encephalopathy secondary to UTI hx of recurrent UTIs blood cultures(10/13): E. coli intermediate resistance to unasyn/ancef ID consulted continue IV rocephin (10/14 - ~10/28) for 2 weeks total recommend IV given patient's h/o diarrhea with antibiotics and current diarrhea to ensure absorption/delivery urine culture(10/13): mixed lisa leukocytosis resolved, afebrile PICC line ordered 10/17 Acute hypoxic respiratory failure d/t afib / D-CHF / COPD initially felt to be CHF due to HPI, several weeks of dyspnea; now in new afib; may have had undiagnosed afib, paroxysmal vs COPD CXR (10/14): no acute abnormalities Cardiology consulted continue PO lasix Echo(10/14): 75% EF, normal, no effusions monitor on telemetry Feels like getting deep breath is "tight" at times does not appear fluid overload PRN nebs PT consulted A-fib, new onset Cardio following continue sotalol BID, decreased to 40mg BID (10/17) due to low HR continue eliquis monitor on telemetry remains in normal sinus rhythm Hypokalmemia Replete as needed IDDM2 Insulin sliding scale Hypertension Hyperlipidemia GERD Anxiety Continue home medications VTE: Eliquis Code: Full Dispo: IPR ~ 1-2 days pending afebrile > 24hrs, needing PICC line, improvement of diarrhea
[2022-10-18] MEDS: INSULIN -REGULAR HUMAN 50 UNIT/0.5 ML ML SQ SCH ×4 (07:30→21:02)
[2022-10-18] MEDS ORDERED: POTASSIUM CL SA 10 MEQ TAB PO ONE (08:00)
[2022-10-18] MEDS: CEFTRIAXONE 1,000 MG in NA CHLORIDE 0.9% 50 ML IVPB SCH ×2 (08:47→21:00)
[2022-10-18] MEDS: DONEPEZIL HCL 5 MG TAB PO SCH ×2 (08:49→21:00)
[2022-10-18] MEDS: BENAZEPRIL 20 MG TAB PO SCH (08:50)
[2022-10-18] MEDS: APIXABAN 5 MG TABLET PO SCH ×2 (08:50→21:01)
[2022-10-18] MEDS: BUSPIRONE HCL 5 MG TABLET PO SCH ×4 (08:50→21:00)
[2022-10-18] MEDS: PANTOPRAZOLE 40MG TABLET PO SCH (08:50)
[2022-10-18] MEDS: FOLIC ACID 1 MG TABLET PO SCH (08:50)
[2022-10-18] MEDS: VITAMIN B COMPLEX 1 CAP PO SCH (08:51)
[2022-10-18] MEDS: GABAPENTIN 300 MG CAP PO SCH ×2 (08:51→21:02)
[2022-10-18] MEDS: AMLODIPINE 10 MG TAB PO SCH (08:51)
[2022-10-18] MEDS: MEMANTINE HCL 10 MG TABLET PO SCH (08:51)
[2022-10-18] MEDS: CARBIDOPA/LEVODOPA 25/100 TAB PO SCH ×2 (08:51→21:02)
[2022-10-18] MEDS: VITAMIN D 5,000 UNIT CAP PO SCH (08:51)
[2022-10-18] MEDS: DULOXETINE 30 MG CAP PO SCH (08:52)
[2022-10-18] MEDS: Mupirocin NASAL 2 APPL/1 GM TUBE NAS SCH ×2 (08:53→21:00)
[2022-10-18] MEDS: Mirabegron [Myrbetriq] 50 MG Tab.Er.24h PO SCH (08:55)
[2022-10-18] MEDS: Cyclosporine [Restasis] Droperette OPTH SCH ×2 (08:55→21:01)
[2022-10-18] MEDS: LACTOBACILLUS/ACIDOPHILUS TAB PO SCH (08:55)
[2022-10-18] MEDS: FUROSEMIDE 40 MG/4 ML VIAL IV SCH (08:55)
[2022-10-18] MEDS: TIOTROPIUM BR IH SCH (09:00)
[2022-10-18] MEDS: [UNRECOGNIZED DRUG - OTHER] IH SCH (09:00)
--- NOTE | 2022-10-18 09:04 | P.PN ---
Date of Service: 10/18/22 Chief Complaint: Altered mental status Subjective: Patient in bed, A&Ox3. NAD. Reports some improvement in diarrhea. Generalized weakness. Back pain. No acute events reported overnight. Physical Examination Temp Pulse Resp BP Pulse Ox 96.1 F L 72 16 196/75 H 96 10/18/22 07:57 10/18/22 08:55 10/18/22 07:57 10/18/22 08:55 10/18/22 07:57 General: Alert, In no apparent distress, Oriented x3 HEENT: Atraumatic, Normocephalic Neck: Supple, JVD not distended Respiratory: Normal air movement, Diminished, Other (2L NC) Cardiovascular: No edema, Normal pulses Gastrointestinal: Normal bowel sounds, Soft and benign Musculoskeletal: No clubbing, No swelling Integumentary: Skin lesion (small scattered skin lesions bilateral arms) Neurological: Normal speech, Normal tone, Normal affect Laboratory Data - Reviewed Microbiology Data - Reviewed Imagings Data: - Reviewed Medication List: Reviewed Assessment and Plan Problem List Sepsis Bacteremia COPD Hypertension Insulin Dependent Diabetes Mellitus Hyperlipidemia Anxiety Parkinson's Severe PCM Bacteremia - Blood cultures 10/13: Escherichia coli - Repeat blood culture 10/14: Escherichia coli - Urine culture 10/13: Mixed lisa. [place] count <10,000 CFU/mL - XR Chest 10/13: "The lungs appear clear of acute infiltrate. The heart is normal size" - Currently on Rocephin (10/14) - Leukocytosis resolved (WBC 8.9) - Afebrile Recommendations - Continue Rocephin. Due to comorbidities including diabetes, continue antibiotics for 2 weeks duration. Patient with diarrhea following antibiotic administration. Started on probiotic. If diarrhea persists, concern for malabsorption of antibiotic, will need to continue with IV antibiotic for duration of therapy. - Maintain adequate hydration and nutrition ID will follow up and monitor patient closely. Case discussed with Devin Campo
[2022-10-18] MEDS: OXYCODONE HCL 5 MG TAB PO PRN ×2 (09:21→22:35)
[2022-10-18] MEDS: Oxycodone HCl/Acetaminophen 1 TAB TAB PO PRN ×2 (09:22→22:35)
[2022-10-18] MEDS: MONTELUKAST 10 MG TAB PO SCH (16:00)
--- NOTE | 2022-10-18 17:08 | RAD REPORT ---
EXAM DESCRIPTION: RADChest Single View10/18/2022 4:37 pm CLINICAL HISTORY: PICC line placement COMPARISON: Chest Single View dated 10/13/2022; Chest Single View dated 12/20/2021; Chest Pa And Lat (2 Views) dated 03/28/2020; Chest Single View dated 01/15/2019 TECHNIQUE: Portable AP view of the chest. FINDINGS: The right arm PICC has been placed, with catheter tip projecting over the mid SVC. Spinal stimulator electrodes unchanged in position as is The lungs are clear. No pneumothorax or effusion. The cardiomediastinal contours are unremarkable. IMPRESSION: Right arm PICC tip projects over the mid SVC. No acute cardiopulmonary process.
[2022-10-18] MEDS: TRAZODONE 50 MG TABLET PO SCH (21:00)
[2022-10-18] MEDS: FLUTICASONE 50MCG NASAL SPRAY NAS SCH (21:01)
[2022-10-18] MEDS: ATORVASTATIN 10 MG TAB PO SCH (21:02)
[2022-10-18] MEDS: clonazePAM 1 MG TAB PO SCH (21:02)
[2022-10-19] MEDS: ALBUTEROL 2.5 MG/3 ML NEB SOL NEB SCH ×4 (02:05→20:20)
[2022-10-19 04:51] LABS: Absolute Lymphocytes (CBC) 1.6 K/uL (0.7-4.9); Hematocrit 30.1 % (36.0-45.0); Lymphocytes % 18.5 % (15.3-44.8); MCV 88.3 fL (80-100); MPV 9.7 fL (7.6-11.3)
[2022-10-19 05:07] LABS: AST/SGOT 18 U/L (15-37); Albumin 2.4 g/dL (3.4-5.0); Alkaline Phosphatase 55 U/L (45-117); BUN Blood Urea Nitrogen 14 mg/dL (7-18); Bicarbonate 37 mEq/L (21-32); Bilirubin Total 0.4 mg/dL (0.2-1.0); Glomerular Filtration Rate 89 ml/min (=/>90); Glucose Level 113 mg/dL (74-106); Magnesium 2.1 mg/dL (1.6-2.4); Potassium 3.2 mEq/L (3.5-5.1); Protein, Total 5.9 g/dL (6.4-8.2); Sodium Level 141 mEq/L (136-145)
[2022-10-19 05:08] LABS: ALT/SGPT < 10 U/L (13-56)
[2022-10-19] MEDS: SOTALOL HCL 80 MG TAB PO SCH ×2 (06:00→17:31)
--- NOTE | 2022-10-19 06:48 | P.PN ---
Date of Service: 10/19/22 Subjective: feeling a little better today; diarrhea slowly improving 3 short runs of vtach after PICC inserted yesterday, no further episodes after insertion no new / worsening problems afebrile ROS: 10 point ROS as noted above, otherwise negative Physical Exam: GEN: Alert, oriented, NAD HEENT: Normal conjunctiva, sclera anicteric CV: regular rate/rhythm, no edema Pulm: Nonlabored respirations on 1L NC, diminished at bases bilaterally, clear ABD: Soft, nontender, non-distended Neuro: Normal speech, normal affect vitals reviewed Problem List: Sepsis secondary to UTI, E.coli bacteremia Acute metabolic encephalopathy secondary to UTI A-fib, new onset Acute hypoxic respiratory failure d/t chronic diastolic heart failure hx of recurrent UTIs Hypokalemia COPD, chronic Hypertension Hyperlipidemia IDDM2 GERD Anxiety Parkinson's Sepsis secondary to UTI, E.coli bacteremia Acute metabolic encephalopathy secondary to UTI hx of recurrent UTIs blood cultures(10/13): E. coli intermediate resistance to unasyn/ancef ID consulted continue IV rocephin (10/14 - ~10/28) for 2 weeks total recommend IV given patient's h/o diarrhea with antibiotics and current diarrhea to ensure absorption/delivery urine culture(10/13): mixed lisa leukocytosis resolved, afebrile PICC line placed 10/18 Acute hypoxic respiratory failure d/t afib / D-CHF / COPD initially felt to be CHF due to HPI, several weeks of dyspnea; now in new afib; may have had undiagnosed afib, paroxysmal vs COPD CXR (10/14): no acute abnormalities Cardiology consulted Lasix DCd 10/19; slight increase in HCO3 Echo(10/14): 75% EF, normal, no effusions monitor on telemetry Feels like getting deep breath is "tight" at times does not appear fluid overload PRN nebs PT consulted A-fib, new onset Cardio following continue sotalol BID, decreased to 40mg BID (10/17) due to low HR continue eliquis monitor on telemetry remains in normal sinus rhythm not as bradycardic BP ok Hypokalmemia Replete as needed IDDM2 Insulin sliding scale Hypertension Hyperlipidemia GERD Anxiety Continue home medications VTE: Eliquis Code: Full Dispo: Approved for IPR 10/19, anticipate DC tomorrow morning pending improvement of diarrhea, HR/BP stable, HCO3 stable PICC line placed 10/18
[2022-10-19] MEDS: INSULIN -REGULAR HUMAN 50 UNIT/0.5 ML ML SQ SCH ×4 (07:30→21:00)
[2022-10-19] MEDS: BUSPIRONE HCL 5 MG TABLET PO SCH ×4 (08:26→21:54)
[2022-10-19] MEDS: FOLIC ACID 1 MG TABLET PO SCH (08:28)
[2022-10-19] MEDS: DULOXETINE 30 MG CAP PO SCH (08:28)
[2022-10-19] MEDS: BENAZEPRIL 20 MG TAB PO SCH (08:28)
[2022-10-19] MEDS: GABAPENTIN 300 MG CAP PO SCH ×2 (08:29→21:55)
[2022-10-19] MEDS: VITAMIN D 5,000 UNIT CAP PO SCH (08:29)
[2022-10-19] MEDS: Oxycodone HCl/Acetaminophen 1 TAB TAB PO PRN ×2 (08:29→21:56)
[2022-10-19] MEDS: LACTOBACILLUS/ACIDOPHILUS TAB PO SCH (08:30)
[2022-10-19] MEDS: PANTOPRAZOLE 40MG TABLET PO SCH (08:30)
[2022-10-19] MEDS: AMLODIPINE 10 MG TAB PO SCH (08:30)
[2022-10-19] MEDS: OXYCODONE HCL 5 MG TAB PO PRN ×2 (08:30→21:56)
[2022-10-19] MEDS: DONEPEZIL HCL 5 MG TAB PO SCH ×2 (08:30→21:51)
[2022-10-19] MEDS: MEMANTINE HCL 10 MG TABLET PO SCH (08:30)
[2022-10-19] MEDS: APIXABAN 5 MG TABLET PO SCH ×2 (08:31→21:54)
[2022-10-19] MEDS: CEFTRIAXONE 1,000 MG in NA CHLORIDE 0.9% 50 ML IVPB SCH ×2 (08:31→21:50)
[2022-10-19] MEDS: Cyclosporine [Restasis] Droperette OPTH SCH ×2 (08:31→21:54)
[2022-10-19] MEDS: Mirabegron [Myrbetriq] 50 MG Tab.Er.24h PO SCH (08:32)
[2022-10-19] MEDS: VITAMIN B COMPLEX 1 CAP PO SCH (08:54)
[2022-10-19] MEDS: CARBIDOPA/LEVODOPA 25/100 TAB PO SCH ×2 (08:54→21:55)
[2022-10-19] MEDS: Mupirocin NASAL 2 APPL/1 GM TUBE NAS SCH ×2 (08:55→21:52)
[2022-10-19] MEDS: [UNRECOGNIZED DRUG - OTHER] IH SCH (09:00)
[2022-10-19] MEDS ORDERED: POTASSIUM CL SA 10 MEQ TAB PO ONE ×2 (09:00→21:00)
[2022-10-19] MEDS: TIOTROPIUM BR IH SCH (09:00)
[2022-10-19] MEDS: MONTELUKAST 10 MG TAB PO SCH (12:09)
--- NOTE | 2022-10-19 16:18 | EKG ---
Test Date: 2022-10-18 Test Time: 11:32:33 Bankruptcy Attorney: STEPHANIE MEASUREMENT RESULTS: Intervals: Rate: 61 [place]: 160 QRSD: 82 QT: 466 QTc: 469 [place]: P: 44 [place]: 160 QRS: -13 T: -8 INTERPRETIVE STATEMENTS: Sinus rhythm with premature atrial complexes Moderate voltage criteria for LVH, may be normal variant Borderline ECG Compared to ECG 10/17/2022 06:18:40 Atrial premature complex(es) now present Left ventricular hypertrophy now present Sinus bradycardia no longer present Myocardial infarct finding no longer present Electronically Signed On 10-19-22 16:17:04 CDT by Vel Quinones
[2022-10-19] MEDS: IPRATROPIUM BROM 0.5MG/2.5ML NEB PRN (20:20)
[2022-10-19] MEDS: TRAZODONE 50 MG TABLET PO SCH (21:00)
[2022-10-19] MEDS: FLUTICASONE 50MCG NASAL SPRAY NAS SCH (21:54)
[2022-10-19] MEDS: clonazePAM 1 MG TAB PO SCH (21:54)
[2022-10-19] MEDS: ATORVASTATIN 10 MG TAB PO SCH (21:55)
[2022-10-20] MEDS: ALBUTEROL 2.5 MG/3 ML NEB SOL NEB SCH ×4 (02:00→20:00)
[2022-10-20] MEDS: SOTALOL HCL 80 MG TAB PO SCH (05:35)
[2022-10-20 06:16] LABS: Albumin 2.6 g/dL (3.4-5.0); Bilirubin Total 0.3 mg/dL (0.2-1.0); Magnesium 2.1 mg/dL (1.6-2.4); Potassium 3.9 mEq/L (3.5-5.1); Protein, Total 6.3 g/dL (6.4-8.2)
--- NOTE | 2022-10-20 07:19 | P.PN ---
Date of Service: 10/20/22 Subjective: breathing is improving 1 episode of diarrhea last night, no associated pain or nausea chronic back pain is slightly aggravated several episodes of vtach yesterday, and a run of SVT overnight otherwise no new / worsening problems ROS: 10 point ROS as noted above, otherwise negative Physical Exam: GEN: Alert, oriented, NAD HEENT: Normal conjunctiva, sclera anicteric CV: regular rate/rhythm, no edema Pulm: Nonlabored respirations on 1L NC, diminished at bases bilaterally, clear ABD: Soft, nontender, non-distended Neuro: Normal speech, normal affect vitals reviewed Problem List: Sepsis secondary to UTI, E.coli bacteremia Acute metabolic encephalopathy secondary to UTI A-fib, new onset Acute hypoxic respiratory failure d/t chronic diastolic heart failure hx of recurrent UTIs Hypokalemia COPD, chronic Hypertension Hyperlipidemia IDDM2 GERD Anxiety Parkinson's Sepsis secondary to UTI, E.coli bacteremia Acute metabolic encephalopathy secondary to UTI hx of recurrent UTIs blood cultures(10/13): E. coli intermediate resistance to unasyn/ancef ID consulted continue IV rocephin (10/14 - ~10/28) for 2 weeks total recommend IV given patient's h/o diarrhea with antibiotics and current diarrhea to ensure absorption/delivery urine culture(10/13): mixed lisa leukocytosis resolved, afebrile PICC line placed 10/18 Acute hypoxic respiratory failure d/t afib / D-CHF / COPD initially felt to be CHF due to HPI, several weeks of dyspnea; now in new afib; may have had undiagnosed afib, paroxysmal vs COPD CXR (10/14): no acute abnormalities Cardiology consulted Lasix DCd 10/19; slight increase in HCO3 Echo(10/14): 75% EF, normal, no effusions monitor on telemetry Feels like getting deep breath is "tight" at times does not appear fluid overload PRN nebs PT consulted A-fib, new onset Cardio following continue eliquis monitor on telemetry recommended switching Sotalol back to metoprolol (10/20) d/t several episodes of vtach and overnight SVT Hypokalmemia Replete as needed IDDM2 SSI Hypertension Hyperlipidemia GERD Anxiety Continue home medications VTE: Eliquis Code: Full Dispo: Approved for IPR 10/19 by insurnace/facility pending medical clearance delayed due to vtach/SVT; possible dc to IPR tomorrow PICC line placed 10/18
[2022-10-20] MEDS: INSULIN -REGULAR HUMAN 50 UNIT/0.5 ML ML SQ SCH ×4 (07:28→22:48)
[2022-10-20] MEDS: BENAZEPRIL 20 MG TAB PO SCH (08:39)
[2022-10-20] MEDS: BUSPIRONE HCL 5 MG TABLET PO SCH ×4 (08:39→21:34)
[2022-10-20] MEDS: VITAMIN D 5,000 UNIT CAP PO SCH (08:39)
[2022-10-20] MEDS: Oxycodone HCl/Acetaminophen 1 TAB TAB PO PRN (08:39)
[2022-10-20] MEDS: AMLODIPINE 10 MG TAB PO SCH (08:39)
[2022-10-20] MEDS: CARBIDOPA/LEVODOPA 25/100 TAB PO SCH ×2 (08:39→21:37)
[2022-10-20] MEDS: APIXABAN 5 MG TABLET PO SCH ×2 (08:39→21:35)
[2022-10-20] MEDS: FOLIC ACID 1 MG TABLET PO SCH (08:40)
[2022-10-20] MEDS: VITAMIN B COMPLEX 1 CAP PO SCH (08:40)
[2022-10-20] MEDS: Mupirocin NASAL 2 APPL/1 GM TUBE NAS SCH ×2 (08:40→21:34)
[2022-10-20] MEDS: MEMANTINE HCL 10 MG TABLET PO SCH (08:40)
[2022-10-20] MEDS: DULOXETINE 30 MG CAP PO SCH (08:40)
[2022-10-20] MEDS: GABAPENTIN 300 MG CAP PO SCH ×2 (08:40→21:35)
[2022-10-20] MEDS: LACTOBACILLUS/ACIDOPHILUS TAB PO SCH (08:40)
[2022-10-20] MEDS: Cyclosporine [Restasis] Droperette OPTH SCH ×2 (08:40→21:34)
[2022-10-20] MEDS: PANTOPRAZOLE 40MG TABLET PO SCH (08:40)
[2022-10-20] MEDS: Mirabegron [Myrbetriq] 50 MG Tab.Er.24h PO SCH (08:40)
[2022-10-20] MEDS: DONEPEZIL HCL 5 MG TAB PO SCH ×2 (08:40→21:34)
[2022-10-20] MEDS: CEFTRIAXONE 1,000 MG in NA CHLORIDE 0.9% 50 ML IVPB SCH ×2 (08:41→21:37)
[2022-10-20] MEDS: [UNRECOGNIZED DRUG - OTHER] IH SCH (08:41)
[2022-10-20] MEDS: TIOTROPIUM BR IH SCH (08:41)
[2022-10-20] MEDS ORDERED: POTASSIUM CL SA 10 MEQ TAB PO ONE (09:00)
[2022-10-20] MEDS: MONTELUKAST 10 MG TAB PO SCH (12:01)
[2022-10-20] MEDS: METOPROLOL TAR 25 MG TAB PO SCH (18:01)
[2022-10-20] MEDS: FLUTICASONE 50MCG NASAL SPRAY NAS SCH (21:35)
[2022-10-20] MEDS: ATORVASTATIN 10 MG TAB PO SCH (21:35)
[2022-10-20] MEDS: TRAZODONE 50 MG TABLET PO SCH (22:48)
[2022-10-21] MEDS: ALBUTEROL 2.5 MG/3 ML NEB SOL NEB SCH ×4 (01:20→19:40)
[2022-10-21 05:30] LABS: Potassium 3.6 mEq/L (3.5-5.1)
[2022-10-21] MEDS: METOPROLOL TAR 25 MG TAB PO SCH ×2 (06:08→17:47)
--- NOTE | 2022-10-21 06:47 | P.PN ---
Date of Service: 10/21/22 Subjective: ~9 sec run of SVT overnight slightly limited PT today d/t lower back pain ROS: 10 point ROS as noted above, otherwise negative Physical Exam: GEN: Alert, oriented, NAD HEENT: Normal conjunctiva, sclera anicteric CV: regular rate/rhythm, no edema Pulm: Nonlabored respirations on 1L NC, diminished at bases bilaterally, clear ABD: Soft, nontender, non-distended Neuro: Normal speech, normal affect vitals reviewed Problem List: Sepsis secondary to UTI, E.coli bacteremia Acute metabolic encephalopathy secondary to UTI A-fib, new onset Acute hypoxic respiratory failure d/t chronic diastolic heart failure hx of recurrent UTIs Hypokalemia COPD, chronic Hypertension Hyperlipidemia IDDM2 GERD Anxiety Parkinson's Sepsis secondary to UTI, E.coli bacteremia Acute metabolic encephalopathy secondary to UTI hx of recurrent UTIs blood cultures(10/13): E. coli intermediate resistance to unasyn/ancef ID consulted continue IV rocephin (10/14 - ~10/28) for 2 weeks total recommend IV given patient's h/o diarrhea with antibiotics and current diarrhea to ensure absorption/delivery urine culture(10/13): mixed lisa leukocytosis resolved, afebrile PICC line placed 10/18 Acute hypoxic respiratory failure d/t afib / D-CHF / COPD secondary to afib (new diagnosis), COPD Cardiology consulted Lasix DCd 10/19; slight increase in HCO3 Echo(10/14): 75% EF, normal, no effusions monitor on telemetry A-fib, new onset Cardio following continue eliquis monitor on telemetry recommended switching Sotalol back to metoprolol (10/20) d/t several episodes of vtach and SVT 10/20 evening/overnight had ~9 sec run of SVT overnight - f/u surveillance system monitor today/tonight if no further episodes, dc to rehab tomorrow Hypokalmemia Replete as needed IDDM2 SSI Hypertension Hyperlipidemia GERD Anxiety Continue home medications VTE: Eliquis Code: Full Dispo: Approved for IPR 10/19 by insurance/facility pending medical clearance delayed due to vtach/SVT; possible dc to IPR tomorrow PICC line placed 10/18
[2022-10-21] MEDS: INSULIN -REGULAR HUMAN 50 UNIT/0.5 ML ML SQ SCH ×4 (07:30→21:00)
[2022-10-21] MEDS ORDERED: NA CHLORIDE 0.9% 50 ML ONE (08:33)
[2022-10-21] MEDS: BENAZEPRIL 20 MG TAB PO SCH (08:51)
[2022-10-21] MEDS: DULOXETINE 30 MG CAP PO SCH (08:52)
[2022-10-21] MEDS: VITAMIN B COMPLEX 1 CAP PO SCH (08:52)
[2022-10-21] MEDS: AMLODIPINE 10 MG TAB PO SCH (08:52)
[2022-10-21] MEDS: CARBIDOPA/LEVODOPA 25/100 TAB PO SCH ×2 (08:53→21:09)
[2022-10-21] MEDS: DONEPEZIL HCL 5 MG TAB PO SCH ×2 (08:53→21:09)
[2022-10-21] MEDS: GABAPENTIN 300 MG CAP PO SCH ×2 (08:53→21:08)
[2022-10-21] MEDS: FOLIC ACID 1 MG TABLET PO SCH (08:53)
[2022-10-21] MEDS: VITAMIN D 5,000 UNIT CAP PO SCH (08:53)
[2022-10-21] MEDS: MEMANTINE HCL 10 MG TABLET PO SCH (08:53)
[2022-10-21] MEDS: APIXABAN 5 MG TABLET PO SCH ×2 (08:54→21:09)
[2022-10-21] MEDS: LACTOBACILLUS/ACIDOPHILUS TAB PO SCH (08:54)
[2022-10-21] MEDS: BUSPIRONE HCL 5 MG TABLET PO SCH ×4 (08:54→21:09)
[2022-10-21] MEDS: PANTOPRAZOLE 40MG TABLET PO SCH (08:54)
[2022-10-21] MEDS: CEFTRIAXONE 1,000 MG in NA CHLORIDE 0.9% 50 ML IVPB SCH ×2 (08:54→21:10)
[2022-10-21] MEDS: Cyclosporine [Restasis] Droperette OPTH SCH ×2 (08:56→21:09)
[2022-10-21] MEDS: TIOTROPIUM BR IH SCH (08:57)
[2022-10-21] MEDS: [UNRECOGNIZED DRUG - OTHER] IH SCH (08:57)
[2022-10-21] MEDS: Mirabegron [Myrbetriq] 50 MG Tab.Er.24h PO SCH (08:57)
[2022-10-21] MEDS: Mupirocin NASAL 2 APPL/1 GM TUBE NAS SCH ×2 (08:57→21:00)
[2022-10-21] MEDS ORDERED: POTASSIUM CL SA 10 MEQ TAB PO ONE (09:00)
--- NOTE | 2022-10-21 09:39 | P.PN ---
Date of Service: 10/21/22 Chief Complaint: Altered mental status Subjective: brief episode of SVT overnight. Patient seen and examined at bedside. + back pain (chronic). + decreased appetite. Physical Examination Temp Pulse Resp BP Pulse Ox 97.7 F 50 16 123/50 L 97 10/21/22 08:00 10/21/22 08:52 10/21/22 08:00 10/21/22 08:52 10/21/22 08:00 General: Alert, In no apparent distress, Oriented x3 HEENT: Atraumatic, Normocephalic Neck: Supple, JVD not distended Respiratory: Normal air movement, Diminished, 1L nasal cannula Cardiovascular: No edema, Normal pulses Gastrointestinal: Normal bowel sounds, Soft and benign Musculoskeletal: No clubbing, No swelling Integumentary: Skin lesion (small scattered skin lesions bilateral arms) Neurological: Normal speech, Normal tone, Normal affect Laboratory Data - Reviewed Microbiology Data - Reviewed Imagings Data: - Reviewed Medication List: Reviewed Assessment and Plan Problem List Sepsis Bacteremia COPD Hypertension Insulin Dependent Diabetes Mellitus Hyperlipidemia Anxiety Parkinson's Severe PCM Bacteremia - Blood cultures 10/13: Escherichia coli - Repeat blood culture 10/14: Escherichia coli - Urine culture 10/13: Mixed lisa. [place] count <10,000 CFU/mL - XR Chest 10/13: "The lungs appear clear of acute infiltrate. The heart is normal size" - Currently on Rocephin (10/14) - Leukocytosis resolved (WBC 8.5) - Afebrile Recommendations - Bacteremia: Continue Rocephin. Due to comorbidities including diabetes, continue antibiotics for 2 weeks duration. Patient with diarrhea following antibiotic administration. Recommend continuing IV antibiotics as there is concern for malabsorption of antibiotic with continued diarrhea. PICC line 10/18 - Maintain adequate hydration and nutrition ID will follow up and monitor patient closely. Case discussed with Devin Campo
[2022-10-21] MEDS: MONTELUKAST 10 MG TAB PO SCH (13:03)
--- NOTE | 2022-10-21 17:15 | EKG ---
Test Date: 2022-10-19 Test Time: 18:41:35 Abstract Clerk: SHANNAN MEASUREMENT RESULTS: Intervals: Rate: 62 IA: 154 QRSD: 80 QT: 454 QTc: 460 [place]: P: 63 IA: 154 QRS: -8 T: 54 INTERPRETIVE STATEMENTS: Sinus rhythm with premature atrial complexes Otherwise normal ECG Compared to ECG 10/18/2022 11:32:33 Left ventricular hypertrophy no longer present Electronically Signed On 10-21-22 17:12:35 CDT by Vel Quinones
[2022-10-21] MEDS ORDERED: OXYCODONE HCL 5 MG TAB PO PRN (17:46)
[2022-10-21] MEDS ORDERED: Oxycodone HCl/Acetaminophen 1 TAB TAB PO PRN (17:51)
--- NOTE | 2022-10-21 20:18 | P.PN ---
Date of Service: 10/22/22 Subjective: ROS: 10 point ROS as noted above, otherwise negative Physical Exam: GEN: Alert, oriented, NAD HEENT: Normal conjunctiva, sclera anicteric CV: regular rate/rhythm, no edema Pulm: Nonlabored respirations on 1L NC, diminished at bases bilaterally, clear ABD: Soft, nontender, non-distended Neuro: Normal speech, normal affect Problem List: 1. Sepsis secondary to UTI, E.coli bacteremia 2. Acute metabolic encephalopathy secondary to UTI 3. A-fib, new onset 4.Acute hypoxic respiratory failure d/t chronic diastolic heart failure 5. hx of recurrent UTIs 6. Hypokalemia 7. COPD, chronic 8. Hypertension 9. Hyperlipidemia 10. IDDM2 11. GERD 12. Anxiety 13. Parkinson's PLAN blood cultures(10/13): E. coli urine culture(10/13): mixed lisa ID consulted continue IV rocephin (10/14 - ~10/28) for 2 weeks total leukocytosis resolved, afebrile PICC line placed 10/18 Cardiology consulted Lasix DCd 10/19; slight increase in HCO3 Echo(10/14): 75% EF, normal, no effusions monitor on telemetry continue eliquis recommended switching Sotalol back to metoprolol (10/20) d/t several episodes of vtach and SVT 10/20 evening/overnight had ~9 sec run of SVT overnight - f/u playground monitor today/tonight if no further episodes, dc to rehab tomorrow sliding scale insulin Continue home medications Approved for IPR 10/19 by insurance/facility pending medical clearance
[2022-10-21] MEDS: TRAZODONE 50 MG TABLET PO SCH (21:09)
[2022-10-21] MEDS: FLUTICASONE 50MCG NASAL SPRAY NAS SCH (21:09)
[2022-10-21] MEDS: ATORVASTATIN 10 MG TAB PO SCH (21:09)
[2022-10-22] MEDS: ALBUTEROL 2.5 MG/3 ML NEB SOL NEB SCH ×2 (01:48→08:10)
[2022-10-22] MEDS: METOPROLOL TAR 25 MG TAB PO SCH (05:44)
[2022-10-22] MEDS: INSULIN -REGULAR HUMAN 50 UNIT/0.5 ML ML SQ SCH ×2 (07:30→11:30)
[2022-10-22 07:33] LABS: Magnesium 2.1 mg/dL (1.6-2.4); Potassium 3.7 mEq/L (3.5-5.1)
[2022-10-22] MEDS: TIOTROPIUM BR IH SCH (09:00)
[2022-10-22] MEDS: Mirabegron [Myrbetriq] 50 MG Tab.Er.24h PO SCH (09:00)
[2022-10-22] MEDS: [UNRECOGNIZED DRUG - OTHER] IH SCH (09:00)
--- NOTE | 2022-10-22 09:30 | P.PN ---
Date of Service: 10/22/22 Chief Complaint: Altered mental status Subjective: Patient seen and examined at bedside. Current plan to discharge to inpatient rehab. + generalized weakness + back pain (chronic) + diarrhea No acute events reported overnight. Physical Examination Temp Pulse Resp BP Pulse Ox 98.3 F 55 16 128/57 L 93 10/22/22 08:00 10/22/22 08:00 10/22/22 08:00 10/22/22 08:00 10/22/22 08:00 General: Alert, In no apparent distress, Oriented x3 HEENT: Atraumatic, Normocephalic Neck: Supple, JVD not distended Respiratory: Diminished breath sounds at bases. Unlabored breathing on Room air. Cardiovascular: No edema, Normal pulses Gastrointestinal: Normal bowel sounds, Soft and benign Musculoskeletal: No clubbing. Generalized weakness. Integumentary: No rashes Neurological: Normal speech, Normal tone, Normal affect Laboratory Data - Reviewed Microbiology Data - Reviewed Imagings Data: - Reviewed Medication List: Reviewed Assessment and Plan Problem List Sepsis Bacteremia COPD Hypertension Insulin Dependent Diabetes Mellitus Hyperlipidemia Anxiety Parkinson's Severe PCM Bacteremia - Blood cultures 10/13: Escherichia coli - Repeat blood culture 10/14: Escherichia coli - Urine culture 10/13: Mixed lisa. [place] count <10,000 CFU/mL - XR Chest 10/13: "The lungs appear clear of acute infiltrate. The heart is normal size" - Currently on Rocephin (10/14) - Leukocytosis resolved (WBC 8.5) - Afebrile Recommendations - Bacteremia: Continue Rocephin x 14 days. Currently day 9 of 14. Recommend continuing IV antibiotics as there is concern for malabsorption of antibiotic with continued diarrhea. PICC line 10/18 - Maintain adequate hydration and nutrition ID will follow up and monitor patient closely. Case discussed with Devin Campo
[2022-10-22] MEDS: CEFTRIAXONE 1,000 MG in NA CHLORIDE 0.9% 50 ML IVPB SCH (09:49)
[2022-10-22] MEDS: CARBIDOPA/LEVODOPA 25/100 TAB PO SCH (10:32)
[2022-10-22] MEDS: AMLODIPINE 10 MG TAB PO SCH (10:34)
[2022-10-22] MEDS: BENAZEPRIL 20 MG TAB PO SCH (10:35)
[2022-10-22] MEDS: BUSPIRONE HCL 5 MG TABLET PO SCH ×2 (10:36→13:03)
[2022-10-22] MEDS: FOLIC ACID 1 MG TABLET PO SCH (10:36)
[2022-10-22] MEDS: DONEPEZIL HCL 5 MG TAB PO SCH (10:36)
[2022-10-22] MEDS: APIXABAN 5 MG TABLET PO SCH (10:37)
[2022-10-22] MEDS: MEMANTINE HCL 10 MG TABLET PO SCH (10:37)
[2022-10-22] MEDS: LACTOBACILLUS/ACIDOPHILUS TAB PO SCH (10:37)
[2022-10-22] MEDS: PANTOPRAZOLE 40MG TABLET PO SCH (10:37)
[2022-10-22] MEDS: GABAPENTIN 300 MG CAP PO SCH (10:38)
[2022-10-22] MEDS: VITAMIN D 5,000 UNIT CAP PO SCH (10:38)
[2022-10-22] MEDS: VITAMIN B COMPLEX 1 CAP PO SCH (10:39)
[2022-10-22] MEDS: DULOXETINE 30 MG CAP PO SCH (10:39)
[2022-10-22] MEDS: Cyclosporine [Restasis] Droperette OPTH SCH (10:41)
[2022-10-22] MEDS: Mupirocin NASAL 2 APPL/1 GM TUBE NAS SCH (10:42)
[2022-10-22 13:03] VITALS: BP 126/59; TEMP 98.1
[2022-10-22] MEDS: MONTELUKAST 10 MG TAB PO SCH (13:03)
[2022-10-22 13:22] VITALS: O2SAT 94
[2022-10-23] MEDS ORDERED: CEFTRIAXONE 1,000 MG in NA CHLORIDE 0.9% 50 ML IVPB SCH (09:00)
--- NOTE | 2022-10-23 17:04 | EKG ---
Test Date: 2022-10-21 Test Time: 18:08:11 [place] Supervisor: BAMBI MEASUREMENT RESULTS: Intervals: Rate: 58 ND: 168 QRSD: 70 QT: 442 QTc: 433 [place]: P: 57 ND: 168 QRS: -10 T: 40 INTERPRETIVE STATEMENTS: Sinus bradycardia Minimal voltage criteria for LVH, may be normal variant Borderline ECG Compared to ECG 10/19/2022 18:41:35 Left ventricular hypertrophy now present Sinus rhythm no longer present Atrial premature complex(es) no longer present Electronically Signed On 10-23-22 17:02:50 CDT by Vel Quinones
== END 2022-10-22 14:25 | DRG 871 ==
LOC: ER 19:06 → ERHOLD 20:36 → 2ND 22:00
PROVIDERS: ADMIT Internal Medicine; ATTEND Hospitalist
PROC: 02HV33Z Insertion of Infusion Device into Superior Vena Cava, Percutaneous Approach (ICD-10-PCS; principal; 2022-10-18)
DX: A41.51 Sepsis due to Escherichia coli [E. coli] (principal); E43 Unspecified severe protein-calorie malnutrition; G93.41 Metabolic encephalopathy; J18.9 Pneumonia, unspecified organism; J96.01 Acute respiratory failure with hypoxia; J44.1 Chronic obstructive pulmonary disease with (acute) exacerbation; J44.0 Chronic obstructive pulmonary disease with (acute) lower respiratory infection; N30.00 Acute cystitis without hematuria; I50.32 Chronic diastolic (congestive) heart failure; I47.1 Supraventricular tachycardia; I11.0 Hypertensive heart disease with heart failure; F41.9 Anxiety disorder, unspecified; G20 Parkinson's disease; E11.9 Type 2 diabetes mellitus without complications; K21.9 Gastro-esophageal reflux disease without esophagitis; I48.91 Unspecified atrial fibrillation; M81.0 Age-related osteoporosis without current pathological fracture; E78.00 Pure hypercholesterolemia, unspecified; G89.29 Other chronic pain; M54.9 Dorsalgia, unspecified; E87.6 Hypokalemia; Z68.25 Body mass index [BMI] 25.0-25.9, adult; Z90.49 Acquired absence of other specified parts of digestive tract; Z98.84 Bariatric surgery status; Z79.899 Other long term (current) drug therapy; Z90.710 Acquired absence of both cervix and uterus; Z87.891 Personal history of nicotine dependence; Z20.822 Contact with and (suspected) exposure to COVID-19
CPT/HCPCS: 36415; 36569; 71045; 80048; 80053; 80076; 81001; 82947; 83605; 83690; 83735; 83880; 84100; 84132; 84484; 85025; 85610; 87040; 87077; 87086; 87088; 87186; 87205; 87804; 87811; 93005; 93306; 94640; 94760; 97110; 97116; 97162; 97530; 99285; J0696; J1650; J1815; J1940; J2930; J3480; J7030; J7050; J7613; J7644

== ENCOUNTER 2022-10-19 16:21 | Inpatient (IN) | payer OTHER, BC ==
[2022-10-22] MEDS: CEFTRIAXONE 1,000 MG in NA CHLORIDE 0.9% 50 ML IVPB SCH (08:00)
--- OUTSIDE RECORDS SUMMARY | 2022-10-22 14:42 | XMS REPORT | Continuity of Care Document ---
:1940 Author Organization [facility] t Address [address] [place] [address]. [address] [place] [address] Care Team Providers Name Role Phone Tiana Richardson Primary Care Physician Michelle Og Attending Clinician Unavailable Tiana Richardson Attending Clinician Unavailable Steff Marie Attending Clinician Cameron Macias MD Attending Clinician David JACKSON, Orlando Hooker Attending Clinician José Miguel Olivera MD Attending Clinician David Yoder MD Attending Clinician DAVID YODER Attending Clinician Unavailable JOSÉ MIGUEL OLIVERA Attending Clinician Unavailable JOSÉ MIGUEL OLIVERA Attending Clinician Unavailable John V, Matt JACKSON Attending Clinician MATT JOHN Attending Clinician Unavailable Asuncion Walton MD Attending Clinician Doctor Unassigned, [place] Attending Clinician Unavailable Kayden Skaggs Attending Clinician Boone Whitney DO Attending Clinician Junior Leslie MD Attending Clinician BOONE WHITNEY Attending Clinician Unavailable TYLER KRAMER Attending Clinician Unavailable JUNIOR LESLIE Attending Clinician Unavailable ASUNCION WALTON Admitting Clinician Unavailable JUNIOR LESLIE Admitting Clinician Unavailable Payers Payer Name Policy Type Policy Number Effective Date Expiration Date S bailey MEDICARE PART A [id number] 2007 AND B 00:00:00 Blue Cross Blue 6 [id number] 2015 [facility] Shield of [place] 00:00:00 - [facility] MEDICARE MB [id number] 2007 [facility] NOVITAS 00:00:00 - [facility] Blue Cross Blue C1 [id number] 2015 [facility] [place] 00:00:00 - [facility] MEDICARE A B [id number] 2007 00:00:00 BCBS FED [id number] 2015 00:00:00 Problems Condition Condition Condition Status [...] [facility] Anxiety Anxiety Problem Active 2022-09-26 Me moria (finding) (finding) 10:24:15 l Active [place]amiro Problem 09/26/2022 [facility] Crohn's Crohn's Problem Active 2022-09-26 M emoria disease of disease of 10:24:15 l small small [place] intestine intestine (disorder) (disorder) Active Problem 09/26/2022 [facility] Depressive Problem Active 2022-09-26 M emoria disorder Depressive 10:24:15 l (disorder) disorder Herm ford (disorder) Active Problem 09/26/2022 [facility] Diabetes Diabetes Problem Active 2022-09-26 Memoria mellitus mellitus 10:24:15 l (disorder) (disorder) He rmann Active Problem 09/26/2022 [facility] 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 Robbie n of of menopause menopause Active Problem 09/26/2022 [facility] Hypertensi Hypertens Problem Active 2022-09-26 Memoria ve arturo 10:24:15 l disorder, disorder, Herm ford systemic systemic arterial arterial (disorder) (disorder) Active Problem 09/26/2022 [facility] Osteoporos Osteoporo Problem Active 2022-09-26 Memoria is sis 10:24:15 l (disorder) (disorder) He rmann Active Problem 09/26/2022 [facility] Parkinson' Parkinson Problem Active 2022-09-26 Memoria s disease 's disease 10:24:15 l (disorder) (disorder) He rmann Active Problem 09/26/2022 [facility] 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 10:24:15 l tract tract [place]ami[place] infection infection (disorder) (disorder) Active Problem 09/26/2022 [facility] Urinary Urinary Problem Active 2022-09-26 Me moria incontinen incontinen 10:24:15 l ce ce [place] (finding) (finding) Active Problem 09/26/2022 [facility] Specialty [facility] 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 10:24:15 l (disorder) (disorder) He rmann Active Problem 09/26/2022 [facility] Constipati Constipat Problem Active 2022-09-26 Memoria on ion 10:24:15 l (disorder) (disorder) He rmann Active Problem 09/26/2022 [facility] [id number] Crohn's Problem Common disease of Spirit colon - [facility]I without [facility] Abnormal Abnormal Problem Commo n mammogram mammogram Spir it of right - CHI breast [facility] Hypertrigl Hypertrigl Problem C ommon yceridemia yceridemia Sp mj - [facility] 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 - [facility] Elevated Problem Commo n liver liver Spirit enzymes enzymes - CHI level [facility] 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 [facility] [id number] Age-relate Problem Com mon d Spirit osteoporos - CHI is without [facility] pathologic Medica l al Center fracture [id number] Primary Problem Commo n osteoarthr Spirit itis of - CHI right hip [facility] [id number] 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) Spirit use of - CHI insulin [facility] COPD - COPD Problem Common Chronic (chronic Spirit obstructiv obstructiv - CHI e e pulmonary pulmonary [place] s disease disease) [facility] Center Hyperlipid Hyperlipid Problem C ommon emia emia Spirit - CHI [facility] Allergic Allergic Problem Commo n rhinitis rhinitis, Spiri t unspecifie - CHI d [facility] Obstructiv Obstructiv Problem C ommon e sleep e sleep Spirit apnea apnea - [facility] [id number] Acute Problem Common atopic Spirit conjunctiv - CHI itis, [facility] [id number] Dry eyes, Problem Com mon bilateral Spirit - CHI [facility] [id number] Hypoglycem Problem Co mmon ia Spirit associated - CHI with [facility] [id number] Type 2 Problem Common diabetes Spirit mellitus - CHI with St hyperglyce [facility] [id number] Unsteady Problem Comm on gait Spirit - CHI [facility] [id number] Screening Problem Com mon for Spirit cardiovasc - CHI ular [facility] [id number] Tinea Problem Common unguium Spirit - CHI [facility] [id number] Tinea Problem Common pedis Spirit - CHI [facility] [id number] Tinea Problem Common manuum Spirit - CHI [facility] [id number] Dementia Problem Commo n without Spirit behavioral - CHI disturbanc St e, [facility] unspecifie Medica l d dementia Center type [id number] Preoperati Problem C ommon 22962 ve Spirit examinatio - CHI n [facility] Urge Urge Problem Common incontinen incontinen Sp mj ce of ce of - CHI urine urine [facility] [id number] Aspiration Problem Com mon pneumonia Spirit of right - CHI lower lobe St due to [facility] gastric Medical secretions Center [id number] DDD Problem Common (degenerat Spirit arturo disc - CHI disease), lumbosacra [facility] [id number] Other Problem Common specified Spirit bacterial - CHI agents as St the cause [facility] of Medical diseases Center classified elsewhere Mixed Mixed Problem Common incontinen stress and Sp mj ce urge [facility] [id number] History of Problem Co mmon right hip Spirit replacemen - CHI t [facility] [id number] Scoliosis Problem Com mon of Spirit thoracolum - [facility] bar [facility], [facility] type Impairment Balance Problem Comm on of balance problem Spiri t - CHI [facility] [id number] Other Problem Common chronic Spirit pain - CHI [facility] [id number] Bilateral Problem Com mon edema of Spirit lower - CHI extremity [facility] [id number] History of Problem Co mmon removal of Spirit laparoscop - CHI ic gastric St banding [facility] [id number] Crohn's Problem Common disease Spirit with - CHI complicati St on, [facility] unspecifie Medica l d Center gastrointe stinal tract location Essential Essential Problem Com mon hypertensi (primary) Spi rit on hypertensi - CHI on [facility] 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 No known No known Disease Unive rs active active ity of problems problems [facility] Allergies, Adverse Reactions, Alerts Allergy Allergy Status Severity Reaction(s) Onset Inactive Treating Comm ents Source Name Type Date Date Clinician NO KNOWN Allergy Active [facility] Family History Family Member Diagnosis Comments Start Date Stop Date Source Natural mother No Known Problems Met [facility] Natural father Heart [facility] Social History Social Habit Start Date Stop Date Quantity Comments Source History of Tobacco [facility] - Use [facility] Sexual orientation [facility] History [facility] Std Drinks Hospit al History SD[facility] Exposure to 2022-07-13 2022-07-23 Not sure [facility] SARS-CoV-2 (event) 00:00:00 12:38:00 History of Social 2022-07-15 2022-07-[address] function 00:00:00 00:00:00 Hospital Tobacco use and 2021-12-18 2021-12-18 Smokeless tobacco [facility] exposure 00:00:00 00:00:00 non-user History SDOH 2019-09-14 2019-09-14 4 [facility] Frequency 00:00:00 00:00:00 Hospita l Alcohol Comment 2019-03-17 2019-03-17 occaisional Methodis t 00:00:00 00:00:00 Hospital Alcohol intake 2017-09-26 2017-09-26 Current [facility] Quinn es 00:00:00 00:00:00 non-drinker of Medical Ce nter alcohol (finding) Cigarettes smoked 2017-09-10 2017-09-[address] [facility] [facility] current (pack per 00:00:00 00:00:00 Medical Center day) - Reported Cigarette 2017-09-10 [facility] Center Sex Assigned At [address] [facility] 00:00[facility]00 00:[facility]:00 Medical Center Smoking Status Start Date Stop Date Source Tobacco smoking status Adeola Rubio Former Smoker 2021-12-28 00:00:00 2021-12-28 00:00:00 Common S pirit - [facility] Medical Ce nter Never smoked tobacco [facility] Medications Ordered Filled Start Stop Current Ordering Indication Dosage Frequency Signature Comments Components Source Medication Medication Date Date Medication? Clinician (SIG) Name Name Joe Yes See Memoria Vaginal -12 Instructio l Cream 0.1 17:40: ns, apply Her heredia mg/g 00 pea size amount to urethra and vagina nightly for 2 weeks and then 3xweek. May dispose of applicator ., # 43 gm, 3 Refill(s), Pharmacy: [email or web address] #[id number], 160.02, cm, 09/23/22 12:31:00 CDT, Height, 72.727, kg, 09/23/22.. . Estrace Yes See Memoria Vaginal 6-12 Instructio l Cream 0.1 17:40: ns, apply Her heredia mg/g 00 pea size amount to urethra and vagina nightly for 2 weeks and then 3xweek. May dispose of applicator ., # 43 gm, 3 Refill(s), Pharmacy: [facility] #[id number], 160.02, cm, 09/23/22 12:31:00 CDT, Height, 72.727, kg, 09/23/22.. . Myrbetriq 2022-0 Yes 50 mg = 1 Mem oria 50 mg oral 4-24 tab, PO, l tablet, 16:02: Daily, # Robbie n extended 00 30 tab, 3 release Refill(s), Pharmacy: [email or web address] #[id number], 160.02, cm, 08/05/22 11:00:00 CDT, Height, 72.727, kg, 08/05/22 11:00:00 CDT, Weight Myrbetriq 2022-0 Yes 50 mg = 1 Mem oria 50 mg oral 4-24 tab, PO, l tablet, 16:02: Daily, # Robbie n extended 00 30 tab, 3 release Refill(s), Pharmacy: [facility] #[id number], 160.02, cm, 08/05/22 11:00:00 CDT, Height, 72.727, kg, 08/05/22 11:00:00 CDT, Weight metoclopram 2022-0 Yes metoclopra UT radha 4-11 mide 10 mg Health (Reglan) 10 13:43: tablet MG tablet 04 TAKE BY MOUTH DIRECTED PER YOUR COLONOSCOP Y PREP PACKET metoclopram 2022-0 Yes metoclopra UT radha 4-11 mide 10 mg Health (Reglan) 10 13:43: tablet MG tablet 04 TAKE BY MOUTH DIRECTED PER YOUR COLONOSCOP Y PREP PACKET amLODIPine- 2022-0 Yes amlodipine UT benazepril -11 10 Health (Lotrel) 13:43: mg-benazep 10-40 MG 03 ril 40 mg capsule capsule TAKE 1 CAPSULE BY MOUTH EVERY DAY amLODIPine- 2022-0 Yes amlodipine UT benazepril 07-23 10 Health (Lotrel) 13:43: mg-benazep 10-40 MG 03 ril 40 mg capsule capsule TAKE 1 CAPSULE BY MOUTH EVERY DAY Melatonin-P Yes See UT yridoxine 07-23 administra [facility] ER 13:41: tion (Melatonin 51 instructio Advanced ns. Sleep) 10-10 MG tablet controlled- release cholecalcif Yes 1{tbl} QD Take 1 UT cristi (D3-5) 4-11 tablet by [facility] lt 5,000 Units 13:41: mouth 1 tablet 51 (one) time each day. hyoscyamine 0 Yes hyoscyamin UT (Anaspaz) 07-23 e 0.125 mg Heal th 0.125 MG 13:41: disintegra disintegrat 51 ting ing tablet tablet DISSOLVE 1 TO 2 TABLETS ON THE TONGUE EVERY 4 TO 6 HOURS NEEDED Multiple 0 Yes 1{capsu QD Take 1 UT Vitamin 4-11 le} capsule by [facility] (multivitam 13:41: mouth 1 in) capsule 51 (one) time each day. mupirocin 2022-0 Yes mupirocin UT (Bactroban) 11 2 % Health 2 % 13:41: topical ointment 51 ointment APPLY TOPICALLY TO THE AFFECTED AREA EVERY DAY metroNIDAZO 0 Yes metronidaz UT LE 4-11 ole 0.75 % Health (Metrolotio 13:41: lotion n) 0.75 % 51 lotion lotion Diclofenac 0 Yes diclofenac U T Sodium 11 1 % Health (Voltaren) 13:41: topical 1 % 51 gel APPLY external 2 GRAMS TO gel THE AFFECTED AREA THREE TIMES DAILY ciclopirox Yes ciclopirox U T (Penlac) 8 11 8 % Health % solution 13:41: topical 51 solution insulin Yes Levemir UT detemir 07-23 FlexTouch [facility] (Levemir 13:41: U-100 FlexTouch) 51 Insulin 100 UNIT/ML 100 injection unit/mL (3 mL) subcutaneo us pen Melatonin-P Yes See UT yridoxine 07-23 administra Heal ER 13:41: tion (Melatonin 51 instructio Advanced ns. Sleep) 10-10 MG tablet controlled- release cholecalcif Yes 1{tbl} QD Take 1 UT cristi (D3-5) 11 tablet by [facility] lt 5,000 Units 13:41: mouth 1 tablet 51 (one) time each day. hyoscyamine Yes hyoscyamin UT (Anaspaz) 07-23 e 0.125 mg 0.125 MG 13:41: disintegra disintegrat 51 ting ing tablet tablet DISSOLVE 1 TO 2 TABLETS ON THE TONGUE EVERY 4 TO 6 HOURS NEEDED Multiple Yes 1{capsu QD Take 1 UT Vitamin -11 le} capsule by [facility] (multivitam 13:41: mouth 1 in) capsule 51 (one) time each day. mupirocin Yes mupirocin UT (Bactroban) 11 2 % Health 2 % 13:41: topical ointment 51 ointment APPLY TOPICALLY TO THE AFFECTED AREA EVERY DAY metroNIDAZO 0 Yes metronidaz UT LE 4-11 ole 0.75 % Health (Metrolotio 13:41: lotion n) 0.75 % 51 lotion lotion Diclofenac Yes diclofenac U T Sodium 4-11 1 % Health (Voltaren) 13:41: topical 1 % 51 gel APPLY external 2 GRAMS TO gel THE AFFECTED AREA THREE TIMES DAILY ciclopirox Yes ciclopirox U T (Penlac) 8 07-23 8 % Health % solution 13:41: topical [...] tablet tablet ibandronate Yes ibandronat UT (Boniva) 11 e 150 mg Health 150 MG 13:41: tablet tablet 50 TAKE 1 TABLET BY MOUTH 1 TIME A MONTH omega-3 Yes 1000mg QD Take 1,000 UT 1000 MG 11 mg by Health capsule 13:41: mouth 1 50 (one) time each day. donepezil Yes donepezil UT (Aricept) 11 10 mg Health 10 MG 13:41: tablet tablet 50 TAKE 1 TABLET BY MOUTH TWICE DAILY memantine Yes memantine UT (Namenda) 11 10 mg Health 10 MG 13:41: tablet tablet 50 TAKE 1 TABLET BY MOUTH TWICE DAILY estradiol Yes estradiol UT (Estrace) 07-23 0.01% (0.1 Heal th 0.1 MG/GM 13:41: mg/gram) vaginal 50 vaginal cream cream APPLY PEA SIZE AMOUNT TO URETHRA AND VAGINA NIGHTLY FOR 2 WEEKS AND THEN THREE DAYS A WEEK. MAY DISPOSE OF APPLICATOR DULoxetine Yes duloxetine U [...] BY MOUTH EVERY 12 HOURS NEEDED magnesium Yes 400mg QD Take 400 UT oxide 4-11 mg by Health (Mag-Ox) 13:41: mouth 1 400 MG 49 (one) time tablet each day. oxyCODONE-a 2022-0 Yes oxycodone- UT cetaminophe 4-11 acetaminop He alth n 13:41: hen 10 (Percocet) 49 mg-325 mg 10-325 MG tablet tablet TAKE 1 TABLET BY MOUTH EVERY 12 HOURS NEEDED magnesium 2023-0 Yes 400mg QD Take 400 UT oxide 4-11 mg by Health (Mag-Ox) 13:41: mouth 1 400 MG 49 (one) time tablet each day. cephalexin 3-0 2023- No [id number] 500mg Q12H Take 1 UT (Keflex) 4-02 15-17 capsule Health 500 MG 00:00: 04:59 (500 mg capsule 00 :00 total) by mouth every 12 (twelve) hours for 5 days. cephalexin 2023-0 2023- No [id number] 500mg Q12H Take 1 UT (Keflex) 4-02 15-17 capsule Health 500 MG 00:00: 04:59 (500 mg capsule 00 :00 total) by mouth every 12 (twelve) hours for 5 days. gabapentin 2023-0 Yes 1200mg Q.5D Take 1,200 UT (Neurontin) 4-05 mg by Health 600 MG 00:00: mouth in tablet 00 the morning and 1,200 mg before bedtime. gabapentin 2023-0 Yes 1200mg Q.5D Take 1,200 UT (Neurontin) [...] ., # 43 gm, 3 Refill(s), [id number] Estrace 2021-04 Yes See Memoria Vaginal 2-12 Instructio l Cream 0.1 23:39: ns, apply Her heredia mg/g 00 pea size amount to urethra and vagina nightly for 2 weeks and then 3xweek. May dispose of applicator ., # 43 gm, 3 Refill(s), Pharmacy: [facility] #[id number] DULoxetine 2021-04 Yes 0 Memoria 30 mg oral 2-12 Refill(s) l delayed 22:05: release capsule midodrine 2021-04 Yes 0 Memoria 10 mg oral 2-12 Refill(s) l tablet 22:05: DULoxetine 2021-04 Yes 0 Memoria 30 mg oral 2-12 Refill(s) l delayed 22:05: release capsule midodrine 2021-04 Yes 0 Memoria 10 mg oral 2-12 Refill(s) l tablet 22:05: fluticasone 2021-04 Yes 0 Memori a nasal 0.05 2-12 Refill(s) l mg/inh 22:05: spray montelukast 2021-04 Yes 0 Memori a 10 [...] mg oral 2-12 Refill(s) l delayed 22:04: capsule acetaminoph 2021-04 Yes 0 Memori a en-hydrocod 2-12 Refill(s) l one 325 22:04: -10 mg 00 oral tablet donepezil 2021-04 Yes 0 Memoria 10 mg oral 2-12 Refill(s) l tablet 22:04: ibandronate 2021-04 Yes 0 Memori a 150 mg oral 2-12 Refill(s) l tablet 22:04: simvastatin 2021-04 Yes 0 Memori a 20 mg oral 2-12 Refill(s) l tablet 22:04: memantine 2021-04 Yes 0 Memoria 10 mg oral 2-12 Refill(s) l tablet 22:04: Toujeo Max 2021-04 Yes 0 Memoria SoloStar 2-12 Refill(s) l 300 22:04: [place] units/mL 00 subcutaneou s solution diclofenac 2021-04 Yes 0 Memoria topical 1% 2-12 Refill(s) l gel 22:04: gabapentin 2021-04 Yes 0 Memoria 300 mg oral 2-12 Refill(s) l capsule 22:04: clonazePAM 2021-04 Yes 0 Memoria 1 mg oral 2-12 Refill(s) l tablet 22:04: lisinopril 2021-04 Yes 0 Memoria 40 mg oral 2-12 Refill(s) l tablet 22:04: omeprazole 2021-04 Yes 0 Memoria 40 mg oral 2-12 Refill(s) l delayed 22:04: 00 capsule acetaminoph 2021-04 Yes 0 Memori a en-hydrocod 2-12 Refill(s) l one 325 22:04: [place] mg-10 mg 00 oral tablet donepezil 2021-04 Yes 0 Memoria 10 mg oral 2-12 Refill(s) l tablet 22:04: ibandronate 2021-04 Yes 0 Memori a 150 mg oral 2-12 Refill(s) l tablet 22:04: simvastatin 2021-04 Yes 0 Memori a 20 mg oral 2-12 Refill(s) l tablet 22:04: memantine 2021-04 Yes 0 Memoria 10 mg oral 2-12 Refill(s) l tablet 22:04: Toujeo Max 2021-04 Yes 0 Memoria SoloStar 2-12 Refill(s) l 300 22:04: [place] units/mL 00 subcutaneou s solution diclofenac 2021-04 Yes 0 Memoria topical 1% 2-12 Refill(s) l gel 22:04: busPIRone 5 2021-04 Yes 0 Memori a mg oral 2-12 Refill(s) l tablet 22:03: [place] 00 trospium 2021-04 Yes 0 Memoria chloride 20 2-12 Refill(s) l mg oral 22:03: [place] tablet 00 Metoprolol 2021-04 Yes 0 Memoria Succinate 2-12 Refill(s) l ER 50 mg 22:03: [place] oral 00 tablet, extended release carbidopa-l 2021-04 Yes 0 Memori a evodopa 25 2-12 Refill(s) l mg-100 mg 22:03: [place] oral tablet 00 metoclopram 2021-04 Yes 0 Memori a radha 10 mg 2-12 Refill(s) l oral tablet 22:03: Robbie n 00 acetaminoph 2021-04 Yes 0 Memori a en-oxycodon 2-12 Refill(s) l e 325 mg-10 22:03: Robbie n mg oral 00 tablet busPIRone 5 2021-04 Yes 0 Memori a mg oral 2-12 Refill(s) l tablet 22:03: [place] 00 trospium 2021-04 Yes 0 Memoria chloride 20 2-12 Refill(s) l mg oral 22:03: [place] tablet 00 Metoprolol 2021-04 Yes 0 Memoria Succinate 2-12 Refill(s) l ER 50 mg 22:03: Ramior oral 00 tablet, extended release carbidopa-l 2021-04 Yes 0 Memori a evodopa 25 2-12 Refill(s) l mg-100 mg 22:03: [place] oral tablet 00 metoclopram 2021-04 Yes 0 [...] mL, 3 subcutaneou Refill(s) s solution Levemir 2021-04 Yes 20 unit, Memori a FlexTouch 2-12 SUB-Q, l 100 22:02: Bedtime, # [place] units/mL 00 3 mL, 3 subcutaneou Refill(s) s solution carbidopa-l 2021-04 Yes 0 Memori a evodopa 25 2-12 Refill(s) l mg-100 mg 18:51: [place] oral tablet 00 metoclopram 2021-04 Yes 0 Memori a radha 10 mg 2-12 Refill(s) l oral tablet 18:51: Robbie n 00 carbidopa-l 2021-04 Yes 0 Memori a evodopa 25 2-12 Refill(s) l mg-100 mg 18:51: [place] oral tablet 00 metoclopram 2021-04 Yes 0 Memori a radha 10 mg 2-12 Refill(s) l oral tablet 18:51: Robbie n 00 busPIRone 5 2021-04 Yes 0 Memori a mg oral 2-12 Refill(s) l tablet 18:50: [place] 00 trospium 2021-04 Yes 0 Memoria chloride 20 2-12 Refill(s) l mg oral 18:50: [place] tablet 00 Metoprolol 2021-04 Yes 0 Memoria Succinate 2-12 Refill(s) l ER 50 mg 18:50: [place] oral 00 tablet, extended release gabapentin 2021-04 Yes 0 Memoria 600 mg oral 2-12 Refill(s) l tablet 18:50: [place] 00 carbidopa-l 2021-04 Yes 0 Memori a evodopa 25 2-12 Refill(s) l mg-100 mg 18:50: [place] oral tablet 00 amLODIPine- 2021-04 Yes 0 Memori a benazepril 2-12 Refill(s) l 10 mg-40 mg 18:50: Robbie n oral 00 capsule busPIRone 5 2021-04 Yes 0 Memori a mg oral 2-12 Refill(s) l tablet 18:50: [place] 00 trospium 2021-04 Yes 0 Memoria chloride 20 2-12 Refill(s) l mg oral 18:50: [place] tablet 00 Metoprolol 2021-04 Yes 0 Memoria Succinate 2-12 Refill(s) l ER 50 mg 18:50: [place] oral 00 tablet, extended release gabapentin 2021-04 Yes 0 Memoria 600 mg oral 2-12 Refill(s) l tablet 18:50: [place] 00 carbidopa-l 2021-04 Yes 0 Memori a evodopa 25 2-12 Refill(s) l mg-100 mg 18:50: [place] oral tablet 00 amLODIPine- 2021-04 Yes 0 Memori a benazepril 2-12 Refill(s) l 10 mg-40 mg 18:50: Robbie n oral 00 capsule Levemir 2021-04 Yes 20 unit, Memori a FlexTouch 2-12 SUB-Q, l 100 18:49: Bedtime, # [place] units/mL 00 3 mL, 3 subcutaneou Refill(s) s solution Levemir 2021-04 Yes 20 unit, Memori a FlexTouch 2-12 SUB-Q, l 100 18:49: Bedtime, # [place] units/mL 00 3 mL, 3 subcutaneou Refill(s) [...] 2021-04 No QD Levemir FlexTouch FlexTouch 2-07 06-05 FlexTouch 00:00: 00:00 00 :00 midodrine 2021-04 Yes midodrine UT (Proamatine 0-10 10 mg Health ) 10 MG 00:00: tablet tablet 00 midodrine 2021-04 Yes midodrine UT (Proamatine 0-10 10 mg Health ) 10 MG 00:00: tablet tablet 00 Midodrine Midodrine 2021-04 No TID Midodrine [...] HCl 10 MG 00:00: 00 Lisinopril Lisinopril 2021- No 1{table QD Lisinopril 40 MG 40 MG 0-10 t} 40 MG 00:00: 00 Midodrine Midodrine 2021-04 No TID Midodrine HCl 10 MG HCl 10 MG 0-10 HCl 10 MG 00:00: 00 Midodrine Midodrine 2021- No TID Midodrine HCl 10 MG HCl 10 MG 0-10 HCl 10 MG 00:00: 00 Lisinopril Lisinopril 2021- No 1{table QD Lisinopril 40 MG 40 MG 0-10 t} 40 MG 00:00: 00 Lisinopril Lisinopril 2021- No 1{table QD Lisinopril 40 MG 40 [...] MG 0-10 HCl 10 MG 00:00: 00 Metoprolol Metoprolol 0 No BID Metoprolol Tartrate 25 Tartrate 25 [...] 00 :00 n_an_em pty_sto mach} Trospium Trospium 2022-0 2023- No 1{table QD Trospium Chloride 20 [...] Take 1 UT Vitamins 12-18 tablet by [facility] (Vitamin 15:05: mouth 1 B-Complex) 34 (one) [...] Take 1 UT Vitamins 12-18 tablet by [facility] (Vitamin 15:05: mouth 1 B-Complex) 34 (one) [...] 0.05 % 34 eye ophthalmic emulsion fluticasone 2022-0 Yes 2{puff} QD Inhale 2 [facility] (Flovent [...] MCG/BLIST 34 each day. diskus inhaler albuterol 0 Yes 2 puffs as UT 108 (90 12-18 needed [facility]) 15:05: MCG/ACT 34 inhaler clotrimazol 2021-0 Yes [id number] Q.5D Apply UT e 12-18 topically Health (Lotrimin) 00:00: 2 (two) 1 % cream 00 times a day. clotrimazol 2021-0 Yes [id number] Q.5D Apply UT e 12-18 topically Health (Lotrimin) 00:00: 2 (two) 1 % cream 00 times a day. clotrimazol 2021-0 Yes [id number] Q.5D Apply [facility] e 12-18 topically Health (Lotrimin) 00:00: 2 (two) 1 % cream 00 times a day. nystatin 2021-0 Yes [facility] (Mycostatin 12-12 Health ) [id number] 00:00: UNIT/ML 00 suspension nystatin 2021-0 Yes [facility] (Mycostatin 12-12 Health ) [id number] 00:00: UNIT/ML 00 suspension Cipro 500 Cipro 500 2021-0 2021- No 1{table BID Cipro 500 MG MG 12-05 08 t} MG 00:00: 00:00 00 :00 clonazePAM 2-0 Yes [facility] (KlonoPIN) 8 Health 1 MG tablet 00:00: 00 clonazePAM 2021-0 Yes [facility] (KlonoPIN) 8 Health 1 MG tablet 00:00: 00 clonazePAM 2-0 Yes [facility] (KlonoPIN) 8 Health 1 MG tablet 00:00: 00 carbidopa-l 2-0 Yes UT evodopa 11-20 Health [...] 10 MG 00:00: tablet 00 Diclofenac Diclofenac 2022-0 2022- No TID Diclofenac [...] 00:00 00 :00 Cipro 500 Cipro 500 2021-0 2- No [...] 1{table BID Oxybutynin Chloride 5 Chloride 5 05-28 t} Chloride 5 MG MG 00:00: 00:00 MG 00 :00 Oxybutynin Oxybutynin 2020-04- No 1{table BID Oxybutynin Chloride 5 Chloride 5 2-14 03-14 t} Chloride 5 MG MG 00:00: 00:00 [...] BID Oxybutynin Chloride 5 Chloride 5 -14 -14 t} Chloride 5 MG MG 00:00: [...] t} MG MG 00:00: 00 Ibandronate Ibandronate 2020-04 No 1{table Ibandronat [...] QD Apply 5 % M ethodi E 09-[address] (RESTASIS) 11:01: daily. Hospi ta 0.05 % 48 l ophthalmic emulsion biotin 1 mg 2020-0 Yes 1mg QD Take 1 mg M ethodi capsule -[address] 11:01: daily. Hospita 48 [...] tablet 11:01: nightly. [facility]osp pedrito 48 l CINNAMON 2020-0 Yes 1000mg QD Take 1,000 [...] tablet 11:01: daily. [facility] 48 l DULoxetine 2020-0 Yes 60mg QD Take 60 mg M ethodi (CYMBALTA) 6-[address] 60 MG 11:01: daily. Hospita capsule 48 l coenzyme 2020-0 Yes 10mg QD [...] capsule 48 l budesonide 2020-0 Yes 6mg Q.16471010 Take 6 mg [facility] EC 6-02 [id number] [address] mouth [facility] [address] (ENTOCORT 11:01: 3D (three) Hospi ta EC) 3 mg 24 48 times a l hr capsule day. omega 2020-0 Yes 1000mg QD Take 1,000 Meth escobar 3-dha-epa-f 6-[address] arnoldo oil 11:01: mouth Hospita (FISH OIL) 48 daily. l 1,000 mg (120 mg-180 mg) capsule gabapentin 2020-0 Yes 300mg Q.[id number] Take 300 [facility] (NEURONTIN) 6-02 [id number] mg by s t 300 mg 11:01: 3D mouth 3 Hospita capsule 48 (three) l times a day. garlic 1 mg 2020-0 Yes 1mg QD Take 1 mg M ethodi capsule -[address] 11:01: daily. Hospita 48 l ibandronate 2020-0 Yes 150mg Q30D Take 150 M ethodi (BONIVA) 6-[address] 150 mg 11:01: mouth Hospita tablet 48 every 30 l (thirty) days. Take in AM with glass of water prior to food, don't lie down for 30 minutes. latanoprost 2020-0 Yes 1[drp] QD Administer [facility] (XALATAN) -[address] 0.005 % 11:01: both eyes Hospi ta ophthalmic 48 nightly. l solution lisinopril 2020-0 Yes 20mg QD Take 20 mg M ethodi (PRINIVIL,Z 6-[address] ESTRIL) 20 11:01: daily. Hospi ta mg tablet 48 l budesonide 2020-0 Yes 6mg Q.95099244 Take 6 mg [facility] EC -02 [id number] [facility] mouth [facility] (ENTOCORT 11:01: 3D (three) Hospi ta EC) 3 mg 24 48 times a l hr capsule day. magnesium 2020-0 Yes 400mg QD Take 400 Met [facility] oxide 6-[address] (MAG-OX) 11:01: mouth Hospita 400 mg 48 daily. l (241.3 mg magnesium) tablet melatonin 3 2020-0 Yes 3mg QD Take 3 mg M ethodi mg tablet -[address] 11:01: nightly. Hospita 48 [...] 48 nightly. l mcg/actuati on nasal spray omega 2020-0 Yes 1000mg QD Take 1,000 Meth escobar 3-dha-epa-f 6-[address] arnoldo oil 11:01: mouth Hospita (FISH OIL) 48 daily. l 1,000 mg (120 mg-180 mg) capsule gabapentin 2020-0 Yes 300mg Q.34072151 Take 300 [facility] (NEURONTIN) -02 [id number] mg by s t 300 mg 11:01: [...] 2020-0 Yes 1[drp] QD Administer [facility] (XALATAN) [address] 0.005 % 11:01: [...] capsule 48 l budesonide 2020-0 Yes 6mg Q.[id number] Take 6 mg [facility] EC 6-02 [id number] [address] mouth [facility] (ENTOCORT 11:01: 3D (three) Hospi ta EC) 3 mg 24 48 times a l hr capsule day. omega 2020-0 Yes 1000mg QD Take 1,000 Meth escobar 3-dha-epa-f 6-[address] arnoldo oil 11:01: mouth Hospita (FISH OIL) 48 daily. l 1,000 mg (120 mg-180 mg) capsule gabapentin 2020-0 Yes 300mg Q.[id number] Take 300 [facility] (NEURONTIN) 6-02 [id number] mg by s t 300 mg 11:01: [...] 2020-0 Yes QD Inject Meth escobar (VICTOZA) -[address] 0.6 mg/0.1 11:01: skin daily H ospita mL (18 mg/3 48 with l mL) pen breakfast. injector fluticasone 2020-0 Yes 2{spray QD 2 sprays [facility] propionate 09-13 } by Each st (FLONASE) 11:01: Nare [...] QD Take 1 mg M ethodi capsule -[address] 11:01: daily. Hospita 48 [...] capsule 48 l budesonide 2020-0 Yes 6mg Q.21801323 Take 6 mg [facility] EC 6-02 [id number] by mouth [facility] (ENTOCORT 11:01: 3D (three) Hospi ta EC) 3 mg 24 48 times a l hr capsule day. omega 2020-0 Yes 1000mg QD Take 1,000 Meth escobar 3-dha-epa-f 6-[address] arnoldo oil 11:01: mouth Hospita (FISH OIL) 48 daily. l 1,000 mg (120 mg-180 mg) capsule gabapentin 2020-0 Yes 300mg Q.30801531 Take 300 [facility] (NEURONTIN) 6-02 [id number] mg by s t 300 mg 11:01: [...] 2020-0 Yes 1[drp] QD Administer [facility] (XALATAN) -[address] 0.005 % 11:01: [...] Yes 2{spray QD 2 sprays [facility] propionate 09-13 } by Each st (FLONASE) 11:01: Nare route Ho spita 50 48 nightly. l mcg/actuati on nasal spray CINNAMON 2020-0 Yes 1000mg QD Take 1,000 M ethodi BARK ORAL 6-[address] 11:01: mouth Hospita 48 daily. l cycloSPORIN 2020-0 Yes 5% QD Apply 5 % M ethodi E 09-[address] (RESTASIS) 11:01: daily. Hospi ta 0.05 % 48 l ophthalmic emulsion biotin 1 mg 2020-0 Yes 1mg QD Take 1 mg M ethodi capsule 09-[address] 11:01: daily. Hospita 48 l clonAZEPAM 2020-0 Yes 1mg QD Take 1 mg [facility] (KlonoPIN) [address] 1 MG tablet 11:01: daily. [facility] 48 l coenzyme 2020-0 Yes 10mg QD Take 10 mg Met [facility] Q10 (CO -[address] Q-10) 10 mg 11:01: daily. [facility] capsule 48 l donepezil 2020-0 Yes 5mg QD Take 5 mg [facility] (ARICEPT) [address] MG tablet 11:01: nightly. [facility] 48 l DULoxetine 2020-0 Yes 60mg QD Take 60 mg M ethodi (CYMBALTA) 09-[address] 60 MG 11:01: daily. Hospita capsule 48 l budesonide 2020-0 Yes 6mg Q.89386218 Take 6 mg [facility] EC - [id number] by mouth [facility] (ENTOCORT 11:01: 3D (three) Hospi ta EC) 3 mg 24 48 times a l hr capsule day. omega 2020-0 Yes 1000mg QD Take 1,000 Meth escobar 3-dha-epa-f -[address] arnoldo oil 11:01: mouth Hospita (FISH OIL) 48 daily. l 1,000 mg (120 mg-180 mg) capsule gabapentin 2020-0 Yes 300mg Q.84490574 Take 300 [facility] (NEURONTIN) 02 [id number] mg by s t 300 mg 11:01: [...] 2020-0 Yes 1[drp] QD Administer [facility] (XALATAN) -[address] 0.005 % 11:01: [...] l (241.3 mg magnesium) tablet melatonin 3 2019-0 Yes 3mg QD Take 3 mg M [...] 2020-0 Yes QD Inject Meth escobar (VICTOZA) -[address] 0.6 mg/0.1 11:01: skin daily H ospita mL (18 mg/3 48 with l mL) pen breakfast. injector fluticasone 2020-0 Yes 2{spray QD 2 sprays [facility] propionate 09-13 } by Each st (FLONASE) 11:01: Nare route Ho spita 50 48 nightly. l mcg/actuati on nasal spray CINNAMON 2020-0 Yes 1000mg QD Take 1,000 M ethodi BARK ORAL 6-[address] 11:01: mouth Hospita 48 daily. l cycloSPORIN 2020-0 Yes 5% QD Apply 5 % M ethodi E 09-[address] (RESTASIS) 11:01: daily. Hospi ta 0.05 % 48 l ophthalmic emulsion biotin 1 mg 2020-0 Yes 1mg QD Take 1 mg M ethodi capsule -[address] 11:01: daily. Hospita 48 [...] capsule 48 l budesonide 2020-0 Yes 6mg Q.75070416 Take 6 mg [facility] EC 6-02 [id number] [address] [facility] (ENTOCORT 11:01: 3D (three) Hospi ta EC) 3 mg 24 48 times a l hr capsule day. omega 2020-0 Yes 1000mg QD Take 1,000 Meth escobar 3-dha-epa-f 6-[address] arnoldo oil 11:01: mouth Hospita (FISH OIL) 48 daily. l 1,000 mg (120 mg-180 mg) capsule gabapentin 2020-0 Yes 300mg Q.22447974 Take 300 [facility] (NEURONTIN) -02 [id number] mg by s t 300 mg 11:01: [...] QD Take 1 mg M ethodi capsule -[address] 11:01: daily. Hospita 48 [...] capsule 48 l budesonide 2020-0 Yes 6mg Q.89080402 Take 6 mg [facility] EC 6-02 [id number] [address] mouth [facility] [address] (ENTOCORT 11:01: 3D (three) Hospi ta EC) 3 mg 24 48 times a l hr capsule day. omega 2020-0 Yes 1000mg QD Take 1,000 Meth escobar 3-dha-epa-f 6-[address] arnoldo oil 11:01: mouth Hospita (FISH OIL) 48 daily. l 1,000 mg (120 mg-180 mg) capsule gabapentin 2020-0 Yes 300mg Q.95450378 Take 300 [facility] (NEURONTIN) 6-02 [id number] mg by s t 300 mg 11:01: 3D mouth 3 Hospita capsule 48 (three) l times a day. garlic 1 mg 2020-0 Yes 1mg QD Take 1 mg M ethodi capsule -[address] 11:01: daily. Hospita 48 l ibandronate 2020-0 Yes 150mg Q30D Take 150 M ethodi (BONIVA) 6-[address] 150 mg 11:01: mouth Hospita tablet 48 every 30 l (thirty) days. Take in AM with glass of water prior to food, don't lie down for 30 minutes. latanoprost 2020-0 Yes 1[drp] QD Administer [facility] (XALATAN) -[address] 0.005 % 11:01: [...] NovoFine NovoFine 2020-0 Yes Na Richardson as Co mmon Plus Plus 2-12 directed [facility] 00:00: - [facility] 00 [facility] NovoFine NovoFine 2020-0 No QD NovoFine Plus 32G X Plus 32G X 2-12 Plus 32G X 4 MM 4 MM 00:00: 4 MM 00 NovoFine NovoFine 2020-0 No QD NovoFine Plus 32G X Plus 32G X 2-12 Plus 32G X 4 MM 4 MM 00:00: 4 MM 00 cyanocobala 2020-0 Yes [id number] 1000ug [facility] min 1-14 st injection 20:15: Hospita 1,000 mcg 00 l cyanocobala 2020-0 Yes [id number] 1000ug [facility] min 1-14 st injection 20:15: Hospita 1,000 mcg 00 l cyanocobala 2020-0 Yes [id number] 1000ug [facility] min 1-14 st injection 20:15: Hospita 1,000 mcg 00 l cyanocobala 2020-0 Yes [id number] 1000ug [facility] min 1-14 st injection 20:15: Hospita 1,000 mcg 00 l cyanocobala 2020-0 Yes [id number] 1000ug [facility] min 1-14 st injection 20:15: Hospita 1,000 mcg 00 l cyanocobala 2020-0 Yes [id number] 1000ug [facility] min 1-14 st injection 20:15: Hospita 1,000 mcg 00 l cyanocobala 2020-0 Yes [id number] 1000ug [facility] min 1-14 st injection 20:15: Hospita 1,000 mcg 00 l syringe 2020-0 Yes [id number] 20{syri 20 Met [facility]odi with needle 1-14 nge} Syringes st 3 mL 25 x 00:00: take as Hospi ta 5/8" 00 directed l syringe (As directed). syringe 2020-0 Yes [id number] 20{syri 20 Met hodi with needle 1-14 nge} Syringes st 3 mL 25 x 00:00: take as Hospi ta 5/8" 00 directed l syringe (As directed). syringe 2020-0 Yes [id number] 20{syri 20 Met [facility] with needle 1-14 nge} Syringes st 3 mL 25 x 00:00: take as Hospi ta 08/19" directed l syringe (As directed). syringe 2020-0 Yes [id number] 20{syri 20 Met hodi with needle 1-14 nge} Syringes st 3 mL 25 x 00:00: take as Hospi ta 08/19" directed l syringe (As directed). syringe 2020-0 Yes [id number] 20{syri 20 Met [facility]odi with needle 1-14 nge} Syringes st 3 mL 25 x 00:00: take as Hospi ta directed l syringe (As directed). syringe 2020-0 Yes [id number] 20{syri 20 Met hodi with needle 1-14 nge} Syringes st 3 mL 25 x 00:00: take as Hospi ta directed l syringe (As directed). syringe 2020-0 Yes [id number] 20{syri 20 Met hodi with needle 1-14 nge} Syringes st 3 mL 25 x 00:00: take as Hospi ta directed l syringe (As directed). methotrexat 2019-0 Yes 2.5mg Take 2.5 M ethodi e 2.5 MG 5-[address] tablet [facility] methotrexat 2019-0 Yes 2.5mg Take 2.5 M ethodi e 2.5 MG 5-[address] tablet 00:00: [facility] 00 l methotrexat 2019-0 Yes 2.5mg Take 2.5 M ethodi e 2.5 MG 5-[address] tablet 00:00: [facility] 00 l methotrexat 2019-0 Yes 2.5mg Take 2.5 M ethodi e 2.5 MG 5-[address] tablet 00:00: mouth. Hospita 00 l methotrexat 2019-0 Yes 2.5mg Take 2.5 M ethodi e 2.5 MG 5-[address] tablet 00:00: [facility] 00 l methotrexat 2019-0 Yes 2.5mg Take 2.5 M ethodi e 2.5 MG 5-[address] tablet 00:00: [facility] 00 l methotrexat 2019-0 Yes 2.5mg Take 2.5 M ethodi e 2.5 MG 5-[address] tablet 00:00: mouth. Hospita 00 l folic acid 2019-0 Yes 1mg QD Take 1 mg [facility] (FOLVITE) 1 5-[address] MG tablet 00:00: daily. Hospit a 00 l folic acid 2019-0 Yes 1mg QD Take 1 mg [facility] (FOLVITE) 1 5-[address] MG tablet 00:00: daily. Hospit a 00 l folic acid 2019-0 Yes 1mg QD Take 1 mg [facility] (FOLVITE) 1 5-[address] MG tablet 00:00: daily. Hospit a 00 l folic acid 2019- Yes 1mg QD Take 1 mg [facility] (FOLVITE) 1 5-[address] MG tablet 00:00: daily. Hospit a 00 l folic acid 2018-0 Yes 1mg QD Take 1 mg [facility] (FOLVITE) 1 5-[address] MG tablet 00:00: daily. Hospit a 00 l folic acid 2018- Yes 1mg QD Take 1 mg [facility] (FOLVITE) 1 5-[address] MG tablet 00:00: daily. Hospit a 00 l folic acid 2018- Yes 1mg QD Take 1 mg [facility] (FOLVITE) 1 5-[address] MG tablet 00:00: daily. Hospit a 00 l insulin 2017-0 Yes 50U QD Inject 50 [...] [facility] DISK[facility]) 50 13:15: mouth via Mn dical mcg/actuati 32 inhaler Cente r on diskus daily. inhaler clonazePAM 2017-0 Yes 1mg QD Take [address] (KLONOPIN) 6-16 by [facility] 1 MG tablet 13:15: nightly. Mn dical 32 Center ibandronate 2018-0 Yes 150mg Take [address] (BONIVA) 6-16 mg by [facility] 150 mg 13:15: mouth Medical tablet 32 every 30 Center (thirty) days Take in AM with glass of water prior to food, don't lie down for 30 minutes. . tiotropium- 2018-0 Yes 2{puff} QD Inhale [address] olodaterol 6-16 puffs by [facility] (STIOLTO 13:15: mouth via [facility] RESPIMAT) 32 inhaler Center 2.5-2.5 daily. mcg/actuati [...] jerod 32 Center gabapentin 2018-0 Yes 300mg Q.[id number] Take [address] (NEURONTIN) 6-16 [id number] mg by L ukes 300 MG 13:15: [...] l 15 % Foam 32 Center L. 2017-0 Yes 1{capsu QD Take [address] ACIDOPHILUS 6-16 le} capsule by Collette kes /BIFIDO 13:15: mouth Medical LONGUM 32 daily. [place] (PROBIOTIC PEARLS ORAL) magnesium 2018-0 Yes 400mg QD Take [address] oxide 6-16 mg by [facility] (MAG-OX) 13:15: mouth Medical 400 mg 32 daily. [place] tablet CINNAMON 2018-0 Yes 1000mg QD Take 1,[address] BARK 6-16 mg by [facility] (CINNAMON 13:15: mouth Medical ORAL) 32 daily. [place] coenzyme 2018-0 Yes 200mg QD Take [address] Q10 200 mg 6-16 mg by [facility] capsule 13:15: mouth Medical 32 daily. [place] b complex 2018-0 Yes 1{tbl} QD Take [address] vitamins 6-16 tablet by [facility] tablet 13:15: mouth Medical 32 daily. [place] niacin 500 2018-0 Yes 500mg Q.5D Take [...] [facility] root 6-16 le} capsule by [employer] extract 500 13:15: mouth 2 Med ical mg Cap 32 (two) Center times daily. garlic 2018-0 Yes 1{capsu Q.5D Take [address] 1,000 mg 6-16 le} capsule by [employer] Cap 13:15: mouth 2 Medical 32 (two) Center times daily. multivitami 2018-0 Yes 1{capsu QD Take [address] n capsule 6-16 le} capsule by Luke s 13:15: mouth Medical 32 daily. Center omega-3 2018-0 Yes 1{capsu QD Take 1 [facility] fatty 6-16 le} capsule by [employer] acids-fish 13:15: mouth Medica l oil (FISH 32 daily. Center OIL) 360-1,200 mg Cap cholecalcif 2017-0 Yes 5000U QD Take 5,[address] cristi, 6-16 Units by [employer] vitamin D3, 13:15: mouth Medic al 5,000 unit 32 daily. Center Tab melatonin 2018-0 Yes 1{tbl} QD Take [address] 10 mg Tab 6-16 tablet by [facility] 13:15: mouth Medical 32 nightly. Center liraglutide 0 Yes 1.8mg Inject 1.[address] 0.6 [...] injection (three) times daily before meals. cycloSPORIN 2017-0 Yes 1[drp] Q.5D Place 1 [facility] [...] by [facility] DISKUS) 50 13:15: mouth via Mn dical mcg/actuati 32 inhaler Cente r on [...] puffs by [facility] (STIOLTO 13:15: mouth via [facility] RESPIMAT) 32 inhaler Center 2.5-2.5 daily. mcg/actuati [...] jerod 32 Center gabapentin 2018-0 Yes 300mg Q.[id number] Take [address] (NEURONTIN) 6-16 [id number] mg by L ukes 300 MG 13:15: 3D mouth 3 Medical capsule 32 (three) Center times daily. DULoxetine 2017-0 Yes 60mg QD Take 60 mg C [...] /BIFIDO 13:15: mouth Medical LONGUM 32 daily. [place] (PROBIOTIC PEARLS ORAL) magnesium 2018-0 Yes 400mg QD Take [address] oxide 6-16 mg by [facility] (MAG-OX) 13:15: mouth Medical 400 mg 32 daily. [place] tablet CINNAMON 2018-0 Yes 1000mg QD Take 1,[address] BARK 6-16 mg by [facility] (CINNAMON 13:15: mouth Medical ORAL) 32 daily. [place] coenzyme 2018-0 Yes 200mg QD Take [address] Q10 200 mg 6-16 mg by [facility] capsule 13:15: mouth Medical 32 daily. [place] b complex 2018-0 Yes 1{tbl} QD Take [address] vitamins 6-16 tablet by [facility] tablet 13:15: mouth Medical 32 daily. [place] niacin 500 2018-0 Yes 500mg Q.5D Take [...] [facility] root 6-16 le} capsule by [employer] extract 500 13:15: mouth 2 Med ical mg Cap 32 (two) Center times daily. garlic 2018-0 Yes 1{capsu Q.5D Take [address] 1,000 mg 6-16 le} capsule by [employer] Cap 13:15: mouth 2 Medical 32 (two) Center times daily. multivitami 2018-0 Yes 1{capsu QD Take [address] n capsule 6-16 le} capsule by [employer] 13:15: mouth Medical 32 daily. Center omega-3 2017-0 Yes 1{capsu QD Take 1 [facility] fatty 6-16 le} capsule by [employer] acids-fish 13:15: mouth Medica l oil (FISH 32 daily. Center OIL) 360-1,200 mg Cap cholecalcif 2017-0 Yes 5000U QD Take 5,[address] cristi, 6-16 Units by [employer] vitamin D3, 13:15: mouth Medic al 5,000 unit 32 daily. Center Tab melatonin 2017-0 Yes 1{tbl} QD Take [address] 10 mg Tab 6-16 tablet by [employer] 13:15: mouth Medical 32 nightly. Center liraglutide 0 Yes 1.8mg Inject 1.[address] 0.6 [...] 13:15: nightly. Me dical 32 Center insulin 0 Yes 50U QD Inject 50 [facility] [...] puffs by [facility] (STIOLTO 13:15: mouth via Medi jerod RESPIMAT) 32 inhaler Center 2.5-2.5 daily. [...] jerod 32 Center gabapentin 2018-0 Yes 300mg Q.91685962 Take [address] (NEURONTIN) 6-16 [id number] mg by L ukes 300 MG 13:15: [...] /BIFIDO 13:15: mouth Medical LONGUM 32 daily. [place] (PROBIOTIC PEARLS ORAL) magnesium 2018-0 Yes 400mg QD Take [address] oxide 6-16 mg by [facility] (MAG-OX) 13:15: mouth Medical 400 mg 32 daily. Center tablet CINNAMON 2018-0 Yes 1000mg QD Take 1,[address] BARK 6-16 mg by [facility] (CINNAMON 13:15: mouth Medical ORAL) 32 daily. [place] coenzyme 2018-0 Yes 200mg QD Take [address] Q10 200 mg 6-16 mg by [facility] capsule 13:15: mouth Medical 32 daily. [place] b complex 2018-0 Yes 1{tbl} QD Take [address] vitamins 6-16 tablet by [employer] tablet 13:15: mouth Medical 32 daily. [place] niacin 500 2018-0 Yes 500mg Q.5D Take [...] [facility] root 6-16 le} capsule by [employer] extract 500 13:15: mouth 2 Med ical mg Cap 32 (two) Center times daily. garlic 2018-0 Yes 1{capsu Q.5D Take [address] 1,000 mg 6-16 le} capsule by [employer] Cap 13:15: mouth 2 Medical 32 (two) Center times daily. multivitami 2018-0 Yes 1{capsu QD Take [address] n capsule 6-16 le} capsule by Luke s 13:15: mouth Medical 32 daily. [place] omega-3 2018-0 Yes 1{capsu QD Take 1 [facility] fatty 6-16 le} capsule by [employer] acids-fish 13:15: mouth Medica l oil (FISH 32 daily. [place] OIL) 360-1,200 mg Cap cholecalcif 2018-0 Yes 5000U QD Take 5,[address] cristi, 6-16 Units by [facility] vitamin D3, 13:15: mouth Medic al 5,000 unit 32 daily. Center Tab melatonin 2018-0 Yes 1{tbl} QD Take [address] 10 mg Tab 6-16 tablet by [facility] 13:15: mouth Medical 32 nightly. Center liraglutide 0 Yes 1.8mg Inject 1.[address] 0.6 mg/0.1 6-16 mg [facility] mL (18 mg/3 13:15: subcutaneo Medical mL) PnIj 32 usly daily Cente r with breakfast. latanoprost Yes 1[drp] QD Place [address] (XALATAN) 6-16 drop into [facility] 0.005 % 13:15: both eyes Medic al ophthalmic 32 nightly. Cente r solution insulin Yes 50U QD Inject 50 [facility] [...] 2 (two) Center ophthalmic times emulsion daily. fluticasone Yes 2{puff} QD Inhale [address] (FLOVENT 6-16 puffs by [facility] DISKUS) 50 13:15: mouth via Me dical mcg/actuati 32 inhaler Cente r on diskus daily. inhaler latanoprost 2017-0 Yes 1[drp] QD Place [address] (XALATAN) 6-16 drop into [facility] 0.005 % 13:15: both eyes Medic al ophthalmic 32 nightly. Cente r solution fluticasone 2017-0 Yes 2{puff} QD Inhale [address] (FLOVENT 6-16 puffs by [facility] DISKUS) 50 13:15: mouth via Mn dical mcg/actuati 32 inhaler Cente r on diskus daily. inhaler clonazePAM 2018-0 Yes 1mg QD Take [address] (KLONOPIN) 6-16 by mouth [facility] 1 MG tablet 13:15: nightly. Mn dical 32 Center ibandronate 2017-0 Yes 150mg [...] puffs by [facility] (STIOLTO 13:15: mouth via [facility] RESPIMAT) 32 inhaler [place] 2.5-2.5 daily. mcg/actuati on Mist lisinopril 2017-0 [...] by mouth [facility] MG tablet 13:15: nightly. [address] gabapentin 2018-0 Yes 300mg Q.[id number] Take [address] (NEURONTIN) 6-16 [id number] mg by L ukes 300 MG 13:15: 3D mouth 3 Medical capsule 32 (three) Center times daily. DULoxetine 2018-0 Yes 60mg QD Take [address] (CYMBALTA) 6-16 by mouth [facility] 60 MG 13:15: daily. Medical capsule 32 Center clonazePAM 2017-0 Yes 1mg QD Take [address] (KLONOPIN) 6-16 by mouth [facility] 1 MG tablet 13:15: nightly. Mn dical Center montelukast 2017-0 Yes 10mg QD Take [...] /BIFIDO 13:15: mouth Medical LONGUM 32 daily. [place] (PROBIOTIC PEARLS ORAL) magnesium 2018-0 Yes 400mg QD Take [address] oxide 6-16 mg by [facility] (MAG-OX) 13:15: mouth Medical 400 mg 32 daily. [place] tablet CINNAMON 2018-0 Yes 1000mg QD Take 1,[address] BARK 6-16 mg by [facility] (CINNAMON 13:15: mouth Medical ORAL) 32 daily. [place] coenzyme 2018-0 Yes 200mg QD Take [address] Q10 200 mg 6-16 mg by [facility] capsule 13:15: mouth Medical 32 daily. [place] ibandronate 2018-0 Yes 150mg Take [address] (BONIVA) 6-16 mg by [facility] 150 mg 13:15: mouth Medical tablet 32 every 30 Center (thirty) days Take in AM with glass of water prior to food, don't lie down for 30 minutes. . b complex 2018-0 Yes 1{tbl} QD Take [address] vitamins 6-16 tablet by [facility] tablet 13:15: mouth Medical 32 daily. [place] niacin 500 2018-0 Yes 500mg Q.5D Take [address] MG CR 6-16 mg by [facility] capsule 13:15: mouth 2 Medical 32 (two) Center times daily. APPLE CIDER 2018-0 Yes 450mg Q.5D Take [address] VINEGAR 6-16 mg by [facility] ORAL 13:15: mouth 2 Medical 32 (two) Center times daily. turmeric 2017-0 Yes 1{capsu Q.5D Take [address] root 6-16 le} capsule by [employer] extract 500 13:15: mouth 2 Med ical mg Cap 32 (two) Center times daily. garlic 2018-0 Yes 1{capsu Q.5D Take [address] 1,000 mg 6-16 le} capsule by [employer] Cap 13:15: mouth 2 Medical 32 (two) Center times daily. multivitami 2017-0 Yes 1{capsu QD Take [address] n capsule 6-16 le} capsule by Ashwin s 13:15: mouth Medical 32 daily. Center omega-3 2017- Yes 1{capsu QD Take 1 [facility] fatty 6-16 le} capsule by [employer] acids-fish 13:15: mouth Medica l oil (FISH 32 daily. Center OIL) 360-1,200 mg Cap cholecalcif 2017-0 Yes 5000U QD Take 5,[address] cristi, 6-16 Units by [employer] vitamin D3, 13:15: mouth Medic al 5,000 unit 32 daily. Center Tab melatonin 2017-0 Yes 1{tbl} QD Take [address] [facility] 10 mg Tab 6-16 tablet by Ebenezer 13:15: mouth [facility] 32 nightly. Center liraglutide 2017-0 Yes 1.8mg Inject 1.[address] [facility] [address] 0.6 mg/0.1 6-16 mg [facility] mL (18 mg/3 13:15: subcutaneo Medical mL) PnIj 32 usly daily Cente r with breakfast. tiotropium- 2017-0 Yes 2{puff} QD Inhale [address] [facility] olodaterol 6-16 puffs by [facility]ene[facility] (STIOLTO 13:15: mouth via Medi ejrod RESPIMAT) 32 inhaler Center 2.5-2.5 daily. mcg/actuati [...] jerod 32 Center gabapentin 2018-0 Yes 300mg [id number] Take [address] [facility] [address] (NEURONTIN) 6-16 [id number] mg by L ukes 300 MG 13:15: [...] /BIFIDO 13:15: mouth Medical LONGUM 32 daily. [place] (PROBIOTIC PEARLS ORAL) magnesium 2018-0 Yes 400mg QD Take [address] [facility] oxide 6-16 mg by [facility] (MAG-OX) 13:15: mouth Medical 400 mg 32 daily. [place] tablet CINNAMON 2018-0 Yes 1000mg QD Take 1,[address] BARK 6-16 mg by [facility] (CINNAMON 13:15: mouth Medical ORAL) 32 daily. [place] coenzyme 2018-0 Yes 200mg QD Take [address] [facility] [address] Q10 200 mg 6-16 mg by [facility] capsule 13:15: mouth [facility] 32 daily. [place] b complex 2018-0 Yes 1{tbl} QD Take [address] [facility] vitamins 6-16 tablet by [facility] tablet 13:15: mouth Medical 32 daily. [place] niacin 500 2018-0 Yes 500mg Q.5D Take [address] MG CR 6-16 mg by [facility] capsule 13:15: mouth 2 Medical 32 (two) Center times daily. APPLE CIDER 2018-0 Yes 450mg Q.5D Take [address] VINEGAR 6-16 [facility] ORAL 13:15: mouth 2 Medical 32 (two) Center times daily. turmeric 2018-0 Yes 1{capsu Q.5D Take [address] [facility] root 6-16 le} capsule by [employer] extract 500 13:15: mouth 2 Med ical mg Cap 32 (two) Center times daily. garlic 2018-0 Yes 1{capsu Q.5D Take [address] [facility] 1,000 mg 6-16 le} capsule by [employer] Cap 13:15: mouth 2 Medical 32 (two) Center times daily. multivitami 2018-0 Yes 1{capsu QD Take [address] n capsule 6-16 le} capsule by [facility] s 13:15: mouth Medical 32 daily. [place] omega-3 2018-0 Yes 1{capsu QD Take 1 [facility] fatty 6-16 le} capsule by [employer] acids-fish 13:15: mouth Medica l oil (FISH 32 daily. [place] OIL) 360-1,200 mg Cap cholecalcif 2018-0 Yes 5000U QD Take 5,[address] cristi, 6-16 Units by [employer] vitamin D3, 13:15: mouth Medic al 5,000 unit 32 daily. [place] Tab melatonin 2018-0 Yes 1{tbl} QD Take [address] 10 mg Tab 6-16 tablet by [facility] 13:15: mouth Medical 32 nightly. Center liraglutide 2018 Yes 1.8mg Inject 1.[address] 0.6 [...] injection (three) times daily before meals. cycloSPORIN 2017-0 Yes 1[drp] Q.5D Place 1 C HI [...] by [facility] DISKUS) 50 13:15: mouth via Mn dical mcg/actuati 32 inhaler Cente r on diskus daily. inhaler clonazePAM 2017-0 Yes 1mg QD Take [address] (KLONOPIN) 6-16 by mouth [facility] 1 MG tablet 13:15: nightly. Me dical 32 Center ibandronate 2018-0 Yes 150mg Take [address] (BONIVA) 6-16 mg by [facility] 150 mg 13:15: mouth Medical tablet 32 every 30 Center (thirty) days Take in AM with glass of water prior to food, don't lie down for 30 minutes. . tiotropium- 2017-0 Yes 2{puff} QD Inhale [address] olodaterol 6-16 puffs by [facility] (STIOLTO 13:15: mouth via Medi jerod RESPIMAT) 32 inhaler Center 2.5-2.5 daily. [...] by mouth [facility] MG tablet 13:15: nightly. [facility] 32 Center gabapentin 2018-0 Yes 300mg Q.[id number] Take [address] (NEURONTIN) 6-16 [id number] mg by L ukes 300 MG 13:15: [...] /BIFIDO 13:15: mouth Medical LONGUM 32 daily. [place] (PROBIOTIC PEARLS ORAL) magnesium 2018-0 Yes 400mg QD Take [address] oxide 6-16 mg by [facility] (MAG-OX) 13:15: mouth Medical 400 mg 32 daily. Center tablet CINNAMON 2018-0 Yes 1000mg QD Take 1,[address] BARK 6-16 mg by [facility] (CINNAMON 13:15: mouth Medical ORAL) 32 daily. [place] coenzyme 2018-0 Yes 200mg QD Take [address] Q10 200 mg 6-16 mg by [facility] capsule 13:15: mouth Medical 32 daily. [place] b complex 2018-0 Yes 1{tbl} QD Take [address] [facility] vitamins 6-16 tablet by [facility] tablet 13:15: mouth Medical 32 daily. [place] niacin 500 2018-0 Yes 500mg Q.5D Take [...] [facility] root 6-16 le} capsule by [employer] extract 500 13:15: mouth 2 Med ical mg Cap 32 (two) Center times daily. garlic 2018-0 Yes 1{capsu Q.5D Take [address] 1,000 mg 6-16 le} capsule by [employer] Cap 13:15: mouth 2 Medical 32 (two) Center times daily. multivitami 2018-0 Yes 1{capsu QD Take [address] n capsule 6-16 le} capsule by Luke s 13:15: mouth Medical 32 daily. [place] omega-3 2018-0 Yes 1{capsu QD Take 1 [facility] t fatty 6-16 le} capsule by [employer] acids-fish 13:15: mouth Medica l oil (FISH 32 daily. [place] OIL) 360-1,200 mg Cap cholecalcif 2018-0 Yes 5000U QD Take 5,[address] cristi, 6-16 Units by [facility] vitamin D3, 13:15: mouth Medic al 5,000 unit 32 daily. Center Tab melatonin 0 Yes 1{tbl} QD Take [address] [facility] [...] puffs by [facility] (STIOLTO 13:15: mouth via [facility] RESPIMAT) 32 inhaler Center 2.5-2.5 daily. mcg/actuati [...] by mouth [facility] MG tablet 13:15: nightly. [place] [address] Center gabapentin 2018-0 Yes 300mg Q.[id number] Take [address] (NEURONTIN) 6-16 [id number] mg by L ukes 300 MG 13:15: [...] /BIFIDO 13:15: mouth Medical LONGUM 32 daily. [place] (PROBIOTIC PEARLS ORAL) magnesium 2018-0 Yes 400mg QD Take [address] oxide 6-16 mg by [facility] (MAG-OX) 13:15: mouth Medical 400 mg 32 daily. Center tablet CINNAMON 2018-0 Yes 1000mg QD Take 1,[address] BARK 6-16 mg by [facility] (CINNAMON 13:15: mouth Medical ORAL) 32 daily. [place] coenzyme 2018-0 Yes 200mg QD Take [address] Q10 200 mg 6-16 mg by [facility] capsule 13:15: mouth Medical 32 daily. [place] b complex 2018-0 Yes 1{tbl} QD Take [address] vitamins 6-16 tablet by [facility] tablet 13:15: mouth Medical 32 daily. [place] niacin 500 2018-0 Yes 500mg Q.5D Take [...] [facility] root 6-16 le} capsule by [employer] extract 500 13:15: mouth 2 Med ical mg Cap 32 (two) Center times daily. garlic 2018-0 Yes 1{capsu Q.5D Take [address] 1,000 mg 6-16 le} capsule by [facility] Cap 13:15: mouth 2 Medical 32 (two) Center times daily. multivitami 2018-0 Yes 1{capsu QD Take [address] n capsule 6-16 le} capsule by Luke s 13:15: mouth Medical 32 daily. [place] omega-3 2018-0 Yes 1{capsu QD Take 1 [facility] fatty 6-16 le} capsule by [employer] acids-fish 13:15: mouth Medica l oil (FISH 32 daily. [place] OIL) 360-1,200 mg Cap cholecalcif Yes 5000U QD Take 5,[address] cristi, 6-16 Units by [employer] vitamin D3, 13:15: mouth Medic al 5,000 unit 32 daily. [place] Tab melatonin Yes 1{tbl} QD Take [address] 10 mg Tab 6-16 tablet by [employer] 13:15: mouth Medical 32 nightly. [place] liraglutide Yes 1.8mg Inject 1.[address] 0.6 mg/0.1 6-16 mg [facility] mL (18 mg/3 13:15: subcutaneo [...] MEALS latanoprost Yes Univer s 0.005 % - ity of ophthalmic 00:00: [place] drops 00 Medical Branch latanoprost Yes Univer s 0.005 % - ity of ophthalmic 00:00: [place] drops 00 Medical Branch latanoprost Yes Univer s 0.005 % 9-22 ity of ophthalmic 00:00: [place] drops 00 Medical Branch latanoprost Yes Univer s 0.005 % -22 ity of ophthalmic 00:00: [place] drops 00 Medical Branch fluticasone Yes Univer s 50 9-21 ity of mcg/actuati 00:00: [place] on nasal 00 Medical spray Branch fluticasone Yes Univer s 50 9-21 ity of mcg/actuati 00:00: [place] on nasal 00 Medical spray Branch fluticasone 2017-0 Yes Univer s 50 9-21 ity of mcg/actuati 00:00: [place] on nasal 00 Medical spray Branch fluticasone 2017-0 Yes Univer s 50 9-21 ity of mcg/actuati 00:00: [place] on nasal 00 Medical spray Branch DULoxetine 2017-0 Yes Univers 60 mg 9-18 ity of capsule 00:00: [place] [facility] gabapentin 2017-0 Yes Univers 300 mg 9-18 ity of capsule 00:00: [place] [facility] montelukast 2017-0 Yes Univer s 10 mg 9-18 ity of tablet 00:00: [place] [facility] DULoxetine 2017-0 Yes Univers 60 mg 9-18 ity of capsule 00:00: [place] [facility] gabapentin 2017-0 Yes Univers 300 mg 9-18 ity of capsule 00:00: [place] [facility] montelukast 2017-0 Yes Univer s 10 mg 9-18 ity of tablet 00:00: [place] [facility] DULoxetine 2017-0 Yes Univers 60 mg 9-18 ity of capsule 00:00: [place] [facility] gabapentin 2017-0 Yes Univers 300 mg 9-18 ity of capsule 00:00: [place] [facility] montelukast 2017-0 Yes Univer s 10 mg 9-18 ity of tablet 00:00: [place] [facility] DULoxetine 2017-0 Yes Univers 60 mg 9-18 ity of capsule 00:00: [place] [facility] gabapentin 2017-0 Yes Univers 300 mg 9-18 ity of capsule 00:00: [place] [facility] montelukast 2017-0 Yes Univer s 10 mg 9-18 ity of tablet 00:00: [place] [facility] clonazePAM 2017-0 Yes Univers 1 mg tablet 9-14 ity of 00:00: [place] [facility] clonazePAM 2017-0 Yes Univers 1 mg tablet 9-14 ity of 00:00: [place] [facility] clonazePAM 2017-0 Yes Univers 1 mg tablet 9-14 ity of 00:00: [place] [facility] clonazePAM 2017-0 Yes Univers 1 mg tablet 9-14 ity of 00:00: [place] [facility] RESTASIS 2017-0 Yes Univers 0.05 % 9-12 ity of ophthalmic 00:00: [place] drops 00 Medical Branch ibandronate 2017-0 Yes Univer s 150 mg 9-12 ity of tablet 00:00: [place] [facility] lisinopril 2017-0 Yes Univers 20 mg 9-12 ity of tablet 00:00: [place] [facility] RESTASIS 2017-0 Yes Univers 0.05 % 9-12 ity of ophthalmic 00:00: [place] drops Medical Branch ibandronate 2017-0 Yes Univer s 150 mg 9-12 ity of tablet 00:00: [place] [facility] lisinopril 2017-0 Yes Univers 20 mg 9-12 ity of tablet 00:00: [place] [facility] RESTASIS 2017-0 Yes Univers 0.05 % 9-12 ity of ophthalmic 00:00: [place] drops Medical Branch ibandronate 2017-0 Yes Univer s 150 mg 9-12 ity of tablet 00:00: [place] [facility] lisinopril 2017-0 Yes Univers 20 mg 9-12 ity of tablet 00:00: [place] [facility] RESTASIS 2017-0 Yes Univers 0.05 % 9-12 ity of ophthalmic 00:00: [place] drops Medical Branch ibandronate 2017-0 Yes Univer s 150 mg 9-12 ity of tablet 00:00: [place] [facility] lisinopril 2017-0 Yes Univers 20 mg 9-12 ity of tablet 00:00: [place] [facility] omeprazole 2017-0 Yes Univers 40 mg 8-22 ity of capsule 00:00: [place] [facility] omeprazole 2017-0 Yes Univers 40 mg 8-22 ity of capsule 00:00: [place] [facility] omeprazole 2017-0 Yes Univers 40 mg 8-22 ity of capsule 00:00: [place] [facility] omeprazole 2017-0 Yes Univers 40 mg 8-22 ity of capsule 00:00: [place] [facility] NOVOLOG 2017-0 Yes Univers FLEXPEN [...] 20 mg 7-17 ity of tablet 00:00: [place] [facility] simvastatin Yes Univer s 20 mg 7-17 ity of tablet 00:00: [place] [facility] simvastatin Yes Univer s 20 mg 7-17 ity of tablet 00:00: [place] [facility] simvastatin Yes Univer s 20 mg 7-17 ity of tablet 00:00: [place] [facility] Latanoprost Latanoprost Yes Na Richardson 1 drop Common into Spirit affected - [facility]I eye in the [facility] Gabapentin Gabapentin Yes Na Richardson 1 capsule Common [facility] - [facility] Memantine Memantine Yes Na Richardson TAKE 1 Common HCl HCl TABLET BY Spirit MOUTH - CHI TWICE [facility] Oxybutynin Oxybutynin Yes Na Richardson 1 tablet Common Chloride Chloride Spirit - CH[facility] Vitamin D3 Vitamin D3 Yes Na Richardson one tab Common [facility] Ketoconazol Ketoconazol Yes Na Richardson 1 Common e e applicatio Spirit n to - CHI affected [facility] BD Pen BD Pen Yes Na Richardson as Common Needle Vita Needle Vita directed Spirit U/F U/F - CH[facility] Zofran ODT Zofran ODT Yes Na Richardson 1tablet [facility] - [facility] Econazole Econazole Yes Na Richardson 1 Co mmon Nitrate Nitrate applicatio Spi rit n to - CHI affected [facility] Flonase Flonase Yes Na Richardson USE 2 Commo n SPRAYS IN Spirit EACH - CHI NOSTRIL [facility] Stiolto Stiolto Yes Na Richarsdon 2 puffs Com mon Respimat Respimat [facility] Toujeo Toujeo Yes Na Richardson INJECT Common SoloStar SoloStar SUBCUTANEO S pirit USLY 50 - CHI UNITS ONCE [facility] Tylenol Tylenol Yes Na Richardson 1 tablet Co mmon as needed [facility] Fish Oil Fish Oil Yes Na Richardson 1 capsule Common [facility] Simvastatin Simvastatin Yes Na Richardson TAKE 1 Common TABLET BY Spirit MOUTH EACH - CHI EVENING St ONCE DAILY [facility] Restasis Restasis Yes Na Richardson 1 drop Co mmon into Spirit affected - CHI eye [facility] Lisinopril Lisinopril Yes Na Richardson 1 tablet Common [facility] Fluoxetine Fluoxetine Yes Na Richardson 1 capsule Common HCl HCl [facility] ProAir HFA ProAir HFA Yes Na Richardson 2 puffs as Common needed [facility] Prilosec Prilosec Yes Na Richardson TAKE 1 Co mmon CAPSULE BY Spirit MOUTH - CHI DAILY [facility] Boniva Boniva Yes Na Richardson TAKE 1 Common TABLET(S) Spirit BY MOUTH - CHI EVERY [facility] MONTH [facility] Lisinopril Lisinopril Yes Na Richardson 1 tablet Common [facility] - [facility] NovoFine NovoFine Yes Na Richardson as Comm on directed Spirit - CHI [facility] Carafate Carafate Yes Na Richardson 1 tablet Common at bedtime Spirit on an - CHI empty [facility] stomach [facility] before Medical meals Center Clonazepam Clonazepam Yes Na Richardson 1 tablet Common on the Spirit tongue and - CHI allow to [facility] Donepezil Donepezil Yes Na Richardson TAKE 1 Common HCl HCl TABLET BY Spirit MOUTH AT - CHI BEDTIME [facility] Toujeo Max Toujeo Max Yes Na Richardson 22 units Common SoloStar SoloStar daily and Sp mj increase - CHI by [address] every 3 [facility] days until Medical fbg less Center 100 max of 30 units daily. Cymbalta Cymbalta Yes Na Richardson TAKE 1 Co mmon CAPSULE Spirit WITH A - CHI 30MG St CAPSULE TO [facility]ukes EQUAL 90MG Medical ONCE DAILY Center Super B Super B Yes Na Richardson not Common Complex/C Complex/C defined Sp mj - CHI [facility] Neurontin Neurontin Yes Na Richardson TAKE 1 Common CAPSULE BY Spirit MOUTH 3 - CHI TIMES [facility] DAILY [facility] Metoprolol Metoprolol Yes Na Richardson 1/2 tablet Common Succinate Succinate Spiri t ER ER - CHI [facility] Terbinafine Terbinafine Yes Na Richardson 1 tablet Common HCl HCl Spirit - CH[facility] Victoza Victoza Yes Na Richardson INJECT Comm on 1.8MG Spirit SUBCUTANEO - CHI USLYDAILY [facility] Singulair Singulair Yes Na Richardson TAKE 1 Common TABLET BY Spirit MOUTH IN - CHI THE [facility] Melatonin Melatonin Yes Na Richardson as Co mmon ER ER directed Spirit - CHI [facility] Cymbalta Cymbalta Yes Na Richardson TAKE 1 Co mmon CAPSULE BY Spirit MOUTH - CHI DAILY WITH St 60 MG TO [facility]ukes EQUAL 90 Medical MG Center NovoLog NovoLog Yes Na Richardson INJECT 5 Co mmon Flexpen Flexpen UNITS Spirit BEFORE - CHI EACH MEAL St (3 TIMES A [facility]ukes DAY). MAX Medical DOSE: 45 Center UNITS Aspir-81 Aspir-81 Yes Na Richardson 1 tablet Common Spirit - CH[facility] Montelukast Montelukast Yes Na Richardson TAKE 1 Common Sodium Sodium TABLET BY Spirit MOUTH IN - [facility] Remicade Remicade Yes Na Richardson as Comm on directed [facility] Budesonide Budesonide Yes Na Richardson as Common directed [facility] Clonazepam Clonazepam Yes Na Richardson 1 tablet Common [facility] Simvastatin Simvastatin Yes Na Richardson 1 tablet Common in the [facility] Flonase Flonase Yes Na Richardson USE 2 Commo n Allergy Allergy SPRAYS [...] 1{table QD Simvastati 20 MG 20 MG t_in n 20 MG e_eveni ng} Toujeo Max [...] hydroCHLORO hydroCHLORO No 1{table QD thiazide thiazide t_in_th 12.5 MG 12.5 MG e_morni ng} busPIRone [...] Shingrix 2020-02-03 Completed [facility] 09:05:00 - [facility] Shingrix Shingrix 2020-02-03 Completed [facility] 09:05:00 - [facility] Shingrix Shingrix 2020-02-03 Completed [facility] 09:05:00 - [facility] Shingrix Shingrix 2020-02-03 Completed [facility] 09:05:00 - [facility] Shingrix Shingrix 2020-02-03 Completed [facility] 09:05:00 - [facility] Shingrix Shingrix 2020-02-03 Completed [facility] 09:05:00 - [facility] Shingrix Shingrix 2020-02-03 Completed [facility] 09:05:00 - [facility] Shingrix Shingrix 2020-02-03 Completed [facility] 09:05:00 - [facility] Shingrix Shingrix 2020-02-03 Completed [facility] 09:05:00 - [facility] Shingrix Shingrix 2020-02-03 Completed [facility] 09:05:00 - [facility] Shingrix Shingrix 2020-02-03 Completed [facility] 09:05:00 - [facility] Shingrix Shingrix 2020-02-03 Completed [facility] 09:05:00 - [facility] Shingrix Shingrix 2020-02-03 Completed [facility] 09:05:00 - [facility] Shingrix Shingrix 2020-02-03 Completed [facility] 09:05:00 - [facility] Shingrix Shingrix 2020-02-03 Completed [facility] 09:05:00 - [facility] Shingrix Shingrix 2020-02-03 Completed [facility] 09:05:00 - [facility] Shingrix Shingrix 2020-02-03 Completed [facility] 09:05:00 - [facility] Shingrix Shingrix 2020-02-03 Completed [facility] 09:05:00 - [facility] Shingrix Shingrix 2020-02-03 Completed [facility] 09:05:00 - [facility] Shingrix Shingrix 2020-02-03 Completed [facility] 09:05:00 - [facility] Shingrix Shingrix 2020-02-03 Completed [facility] 09:05:00 - [facility] Shingrix Shingrix 2020-02-03 Completed [facility] 09:05:00 - [facility] Shingrix Shingrix 2020-02-03 Completed [facility] 09:05:00 - [facility] Shingrix Shingrix 2020-02-03 Completed [facility] 09:05:00 - [facility] Shingrix Shingrix 2020-02-03 Completed [facility] 09:05:00 - [facility] Shingrix Shingrix 2020-02-03 Completed [facility] 09:05:00 - [facility] Shingrix Shingrix 2020-02-03 Completed [facility] 09:05:00 - [facility] Shingrix Shingrix 2020-02-03 Completed [facility] 09:05:00 - [facility] Shingrix Shingrix 2020-02-03 Completed [facility] 09:05:00 - [facility] Shingrix Shingrix 2020-02-03 Completed [facility] 09:05:00 - [facility] Shingrix Shingrix 2020-02-03 Completed [facility] 09:05:00 - [facility] Shingrix Shingrix 2020-02-03 Completed [facility] 09:05:00 - [facility] Shingrix Shingrix 2020-02-03 Completed [facility] 09:05:00 - [facility] Shingrix Shingrix 2020-02-03 Completed [facility] 09:05:00 - [facility] Shingrix Shingrix 2020-02-03 Completed [facility] 09:05:00 - [facility] Shingrix Shingrix 2020-02-03 Completed [facility] 09:05:00 - [facility] Shingrix Shingrix 2020-02-03 Completed [facility] 09:05:00 - [facility] Shingrix Shingrix 2020-02-03 Completed [facility] 09:05:00 - [facility] Shingrix Shingrix 2020-02-03 Completed [facility] 09:05:00 - [facility] Shingrix Shingrix 2020-02-03 Completed [facility] 09:05:00 - [facility] Shingrix Shingrix 2020-02-03 Completed [facility] 09:05:00 - [facility] Shingrix Shingrix 2020-02-03 Completed [facility] 09:05:00 - [facility] Shingrix Shingrix 2020-02-03 Completed [facility] 09:05:00 - [facility] Shingrix Shingrix 2020-02-03 Completed [facility] 09:05:00 - [facility] Shingrix Shingrix 2020-02-03 Completed [facility] 09:05:00 - [facility] Shingrix Shingrix 2020-02-03 Completed [facility] 09:05:[address] [facility] Pneumovax (PPSV23) Pneumovax (PPSV23) 2020-02-03 Completed [facility] 09:04:[address] [facility] Pneumovax (PPSV23) Pneumovax (PPSV23) 2020-02-03 Completed [facility] 09:04:[address] [facility] Pneumovax (PPSV23) Pneumovax (PPSV23) 2020-02-03 Completed [facility] 09:04:[address] [facility] Pneumovax (PPSV23) Pneumovax (PPSV23) 2020-02-03 Completed [facility] 09:04:[address] [facility] Pneumovax (PPSV23) Pneumovax (PPSV23) 2020-02-03 Completed [facility] 09:04:[address] [facility] Pneumovax (PPSV23) Pneumovax (PPSV23) 2020-02-03 Completed [facility] 09:04:[address] [facility] Pneumovax (PPSV23) Pneumovax (PPSV23) 2020-02-03 Completed [facility] 09:04:[address] [facility] Pneumovax (PPSV23) Pneumovax (PPSV23) 2020-02-03 Completed [facility] 09:04:[address] [facility] Pneumovax (PPSV23) Pneumovax (PPSV23) 2020-02-03 Completed [facility] 09:04:[address] [facility] Pneumovax (PPSV23) Pneumovax (PPSV23) 2020-02-03 Completed [facility] 09:04:[address] [facility] Pneumovax (PPSV23) Pneumovax (PPSV23) 2020-02-03 Completed [facility] 09:04:[address] [facility] Pneumovax (PPSV23) Pneumovax (PPSV23) 2020-02-03 Completed [facility] 09:04:[address] [facility] Pneumovax (PPSV23) Pneumovax (PPSV23) 2020-02-03 Completed [facility] 09:04:[address] [facility] Pneumovax (PPSV23) Pneumovax (PPSV23) 2020-02-03 Completed [facility] 09:04:[address] [facility] Pneumovax (PPSV23) Pneumovax (PPSV23) 2020-02-03 Completed [facility] 09:04:00 - [facility] Pneumovax (PPSV23) Pneumovax (PPSV23) 2020-02-03 Completed [facility] 09:04:[address] [facility] Pneumovax (PPSV23) Pneumovax (PPSV23) 2020-02-03 Completed [facility] 09:04:[address] [facility] Pneumovax (PPSV23) Pneumovax (PPSV23) 2020-02-03 Completed [facility] 09:04:[address] [facility] Pneumovax (PPSV23) Pneumovax (PPSV23) 2020-02-03 Completed [facility] 09:04:[address] [facility] Pneumovax (PPSV23) Pneumovax (PPSV23) 2020-02-03 Completed [facility] 09:04:[address] [facility] Pneumovax (PPSV23) Pneumovax (PPSV23) 2020-02-03 Completed [facility] 09:04:[address] [facility] Pneumovax (PPSV23) Pneumovax (PPSV23) 2020-02-03 Completed [facility] 09:04:00 - [facility] Pneumovax (PPSV23) Pneumovax (PPSV23) 2020-02-03 Completed [facility] 09:04:00 - [facility] Pneumovax (PPSV23) Pneumovax (PPSV23) 2020-02-03 Completed [facility] 09:04:[address] [facility] Pneumovax (PPSV23) Pneumovax (PPSV23) 2020-02-03 Completed [facility] 09:04:00 - [facility] Pneumovax (PPSV23) Pneumovax (PPSV23) 2020-02-03 Completed [facility] 09:04:00 - [facility] Pneumovax (PPSV23) Pneumovax (PPSV23) 2020-02-03 Completed [facility] 09:04:00 - [facility] Pneumovax (PPSV23) Pneumovax (PPSV23) 2020-02-03 Completed [facility] 09:04:00 - [facility] Pneumovax (PPSV23) Pneumovax (PPSV23) 2020-02-03 Completed [facility] 09:04:[address] [facility] Pneumovax (PPSV23) Pneumovax (PPSV23) 2020-02-03 Completed [facility] 09:04:00 - [facility] Pneumovax (PPSV23) Pneumovax (PPSV23) 2020-02-03 Completed [facility] 09:04:00 - [facility] Pneumovax (PPSV23) Pneumovax (PPSV23) 2020-02-03 Completed [facility] 09:04:[address] [facility] Pneumovax (PPSV23) Pneumovax (PPSV23) 2020-02-03 Completed [facility] 09:04:[address] [facility] Pneumovax (PPSV23) Pneumovax (PPSV23) 2020-02-03 Completed [facility] 09:04:[address] [facility] Pneumovax (PPSV23) Pneumovax (PPSV23) 2020-02-03 Completed [facility] 09:04:00 - [facility] Pneumovax (PPSV23) Pneumovax (PPSV23) 2020-02-03 Completed [facility] 09:04:[address] [facility] Pneumovax (PPSV23) Pneumovax (PPSV23) 2020-02-03 Completed [facility] 09:04:[address] [facility] Pneumovax (PPSV23) Pneumovax (PPSV23) 2020-02-03 Completed [facility] 09:04:[address] [facility] Pneumovax (PPSV23) Pneumovax (PPSV23) 2020-02-03 Completed [facility] 09:04:[address] [facility] Pneumovax (PPSV23) Pneumovax (PPSV23) 2020-02-03 Completed [facility] 09:04:[address] [facility] Pneumovax (PPSV23) Pneumovax (PPSV23) 2020-02-03 Completed [facility] 09:04:[address] [facility] Pneumovax (PPSV23) Pneumovax (PPSV23) 2020-02-03 Completed [facility] 09:04:[address] [facility] Pneumovax (PPSV23) Pneumovax (PPSV23) 2020-02-03 Completed [facility] 09:04:[address] [facility] Pneumovax (PPSV23) Pneumovax (PPSV23) 2020-02-03 Completed [facility] 09:04:[address] [facility] Pneumovax (PPSV23) Pneumovax (PPSV23) 2020-02-03 Completed [facility] 09:04:[address] [facility] Pneumovax (PPSV23) Pneumovax (PPSV23) 2020-02-03 Completed [facility] 09:04:00 - [facility] Td Td 2019-11-26 Completed [facility] 10:08:[address] [facility] Td Td 2019-11-26 Completed [facility] 10:08:[address] [facility] Td Td 2019-11-26 Completed [facility] 10:08: [facility] Td Td 2019-11-26 Completed [facility] 10:08: [facility] Td Td 2019-11-26 Completed [facility] 10:08: [facility] Td Td 2019-11-26 Completed [facility] 10:08:[address] [facility] Td Td 2019-11-26 Completed [facility] 10:08:00 - [facility] Td Td 2019-11-26 [facility]pleted [facility] 10:08: - [facility] Td Td 2019-11-26 Completed [facility] 10:08: - [facility] Td Td 2019-11-26 Completed [facility] 10:08: - [facility] Td Td 2019-11-26 Completed [facility] 10:08: - [facility] Td Td 2019-11-26 Completed [facility] 10:08: - [facility] Td Td 2019-11-26 Completed [facility] 10[facility]08: - [facility] Td Td 2019-11-26 Completed [facility] 10:08: - [facility] Td Td 2019-11-26 Completed [facility] 10:: - [facility] Td Td 2019-11-26 Completed [facility] 10:08: - [facility] Td Td 2019-11-26 Completed [facility] 10:08: - [facility] Td Td 2019-11-26 Completed [facility] 10:: - [facility] Td Td 2019-11-26 Completed [facility] 10:: - [facility] Td Td 2019-11-26 Completed [facility] 10:: - [facility] Td Td 2019-11-26 Completed [facility] 10:: - [facility] Td Td 2019-11-26 Completed [facility] 10:08: - [facility] Td Td 2019-11-26 Completed [facility] 10:08: - [facility] Td Td 2019-11-26 Completed [facility] 10:08: - [facility] Td Td 2019-11-26 Completed [facility] 10:08: - [facility] Td Td 2019-11-26 Completed [facility] 10:08: - [facility] Td Td 2019-11-26 Completed [facility] 10:08: - [facility] Td Td 2019-11-26 Completed [facility] 10:08: - [facility] Td Td 2019-11-26 Completed [facility] 10:08: - [facility] Td Td 2019-11-26 Completed [facility] 10[facility]08:00 - [facility] Td Td 2019-11-26 Completed [facility] 10:08:00 - [facility] Td Td 2019-11-26 Completed [facility] 10:08: - [facility] Td Td 2019-11-26 Completed [facility] 10:08: - [facility] Td Td 2019-11-26 Completed [facility] 10:08:00 - [facility] Td Td 2019-11-26 Completed [facility] 10:08: - [facility] Td Td 2019-11-26 Completed [facility] 10:08: - [facility] Td Td 2019-11-26 Completed [facility] 10:08: - [facility] Td Td 2019-11-26 Completed [facility] 10:08: - [facility] Td Td 2019-11-26 Completed [facility] 10:08: - [facility] Td Td 2019-11-26 Completed [facility] 10:08: - [facility] Td Td 2019-11-26 Completed [facility] 10:08: - [facility] Td Td 2019-11-26 Completed [facility] 10:08:00 - [facility] Td Td 2019-11-26 Completed [facility] 10:08: - [facility] Td Td 2019-11-26 Completed [facility] 10:08: - [facility] Td Td 2019-11-26 Completed [facility] 10:08: - [facility] Td Td 2019-11-26 Completed [facility] 10:08: - [facility] Td Td 2019-11-26 Completed [facility] 00:00:00 - [facility] FluAD FluAD 2019-01-26 Completed [facility] 14:49:00 - [facility] FluAD FluAD 2019-01-26 Completed [facility] 14:49:00 - [facility] FluAD FluAD 2019-01-26 Completed [facility] 14:49:00 - [facility] FluAD FluAD 2019-01-26 Completed [facility] 14:49:00 - [facility] FluAD FluAD 2019-01-26 Completed [facility] 14:49:00 - [facility] FluAD FluAD 2019-01-26 Completed [facility] 14:49:00 - [facility] FluAD FluAD 2019-01-26 Completed [facility] 14:49:00 - [facility] FluAD FluAD 2019-01-26 Completed [facility] 14:49:00 - [facility] FluAD FluAD 2019-01-26 Completed [facility] 14:49:00 - [facility] FluAD FluAD 2019-01-26 Completed [facility] 14:49:00 - [facility] FluAD FluAD 2019-01-26 Completed [facility] 14:49:00 - [facility] FluAD FluAD 2019-01-26 Completed [facility] 14:49:00 - [facility] FluAD FluAD 2019-01-26 Completed [facility] 14:49:00 - [facility] FluAD FluAD 2019-01-26 Completed [facility] 14:49:00 - [facility] FluAD FluAD 2019-01-26 Completed [facility] 14:49:00 - [facility] FluAD FluAD 2019-01-26 Completed [facility] 14:49:00 - [facility] FluAD FluAD 2019-01-26 Completed [facility] 14:49:00 - [facility] FluAD FluAD 2019-01-26 Completed [facility] 14:49:00 - [facility] FluAD FluAD 2019-01-26 Completed [facility] 14:49:00 - [facility] FluAD FluAD 2019-01-26 Completed [facility] 14:49:00 - [facility] FluAD FluAD 2019-01-26 Completed [facility] 14:49:00 - [facility] FluAD FluAD 2019-01-26 Completed [facility] 14:49:00 - [facility] FluAD FluAD 2019-01-26 Completed [facility] 14:49:00 - [facility] FluAD FluAD 2019-01-26 Completed [facility] 14:49:00 - [facility] FluAD FluAD 2019-01-26 Completed [facility] 14:49:00 - [facility] FluAD FluAD 2019-01-26 Completed [facility] 14:49:00 - [facility] FluAD FluAD 2019-01-26 Completed [facility] 14:49:00 - [facility] FluAD FluAD 2019-01-26 Completed [facility] 14:49:00 - [facility] FluAD FluAD 2019-01-26 Completed [facility] 14:49:00 - [facility] FluAD FluAD 2019-01-26 Completed [facility] 14:49:00 - [facility] FluAD FluAD 2019-01-26 Completed [facility] 14:49:00 - [facility] FluAD FluAD 2019-01-26 Completed [facility] 14:49:00 - [facility] FluAD FluAD 2019-01-26 Completed [facility] 14:49:00 - [facility] FluAD FluAD 2019-01-26 Completed [facility] 14:49:00 - [facility] FluAD FluAD 2019-01-26 Completed [facility] 14:49:00 - [facility] FluAD FluAD 2019-01-26 Completed [facility] 14:49:00 - [facility] FluAD FluAD 2019-01-26 Completed [facility] 14:49:00 - [facility] FluAD FluAD 2019-01-26 Completed [facility] 14:49:00 - [facility] FluAD FluAD 2019-01-26 Completed [facility] 14:49:00 - [facility] FluAD FluAD 2019-01-26 Completed [facility] 14:49:00 - [facility] FluAD FluAD 2019-01-26 Completed [facility] 14:49:00 - [facility] FluAD FluAD 2019-01-26 Completed [facility] 14:49:00 - [facility] FluAD FluAD 2019-01-26 Completed [facility] 14:49:00 - [facility] FluAD FluAD 2019-01-26 Completed [facility] 14:49:00 - [facility] FluAD FluAD 2019-01-26 Completed [facility] 14:49:00 - [facility] FluAD FluAD 2019-01-26 Completed [facility] 14:49:00 - [facility] FluAD FluAD 2019-01-26 Completed [facility] 00:[facility]:[address] [facility] Vital Signs Vital Name Observation Time Observation Value Comments Source height 2021-12-28 08:40:00 59.5 [in_i] [facility] weight 2021-12-28 08:40:00 150.8 [lb_av] [facility] temperature 2021-12-28 08:40:00 96.7 [degF] [facility] bmi 2021-12-28 08:40:00 29.94 kg/m2 [facility] oximetry 2021-12-28 08:40:00 97 % [facility] respiratory rate 2021-12-28 08:40:00 18 /min Comm on [facility] blood pressure 2021-12-28 08:40:00 134 mm[Hg] [facility] - systolic [facility] blood pressure 2021-12-28 08:40:00 82 mm[Hg] [facility] - diastolic [facility] height 2021-12-24 14:30:00 59.5 [in_i] [facility] weight 2021-12-24 14:30:00 153 [lb_av] [facility] temperature 2021-12-24 14:30:00 98 [degF] [facility] bmi 2021-12-24 14:30:00 30.38 kg/m2 [facility] oximetry 2021-12-24 14:30:00 98 % [facility] respiratory rate 2021-12-24 14:30:00 16 /min Comm on [facility] blood pressure 2021-12-24 14:30:00 130 mm[Hg] [facility] systolic [facility] blood pressure 2021-12-24 14:30:00 60 mm[Hg] [facility] - diastolic [facility] Body height 2021-12-18 19:01:00 [facility] 2021-12-18 19:01:00 [facility]4 [facility] BMI 2021-12-18 19:01:00 27.10 kg/m2 [facility] height 2021-12-05 10:30:00 59.5 [in_i] [facility] weight 2021-12-05 10:30:00 152 [lb_av] [facility] temperature 2021-12-05 10:30:00 96.7 [degF] [facility] bmi 2021-12-05 10:30:00 30.18 kg/m2 [facility] oximetry 2021-12-05 10:30:00 97 % [facility] respiratory rate 2021-12-05 10:30:00 20 /min Comm on [facility] blood pressure 2021-12-05 10:30:00 138 mm[Hg] [facility] - systolic [facility] blood pressure 2021-12-05 10:30:00 60 mm[Hg] [facility] - diastolic [facility] height 2021-11-15 13:00:00 59.5 [in_i] [facility] weight 2021-11-15 13:00:00 151 [lb_av] [facility] temperature 2021-11-15 13:00:00 97.3 [degF] [facility] bmi 2021-11-15 13:00:00 29.98 kg/m2 [facility] oximetry 2021-11-15 13:00:00 98 % [facility] respiratory rate 2021-11-15 13:00:00 23 /min Comm on [facility] blood pressure 2021-11-15 13:00:00 135 mm[Hg] [facility] - systolic [facility] blood pressure 2021-11-15 13:00:00 63 mm[Hg] [facility] - diastolic [facility] height 2021-10-25 14:00:00 62.50 [in_i] [facility] weight 2021-10-25 14:00:00 151.5 [lb_av] [facility] temperature 2021-10-25 14:00:00 97.6 [degF] [facility] bmi 2021-10-25 14:00:00 27.27 kg/m2 [facility] oximetry 2021-10-25 14:00:00 99 % [facility] respiratory rate 2021-10-25 14:00:00 18 /min Comm on [facility] blood pressure 2021-10-25 14:00:00 114 mm[Hg] [facility] - systolic [facility] blood pressure 2021-10-25 14:00:00 56 mm[Hg] [facility] - diastolic [facility] height 2021-10-17 09:30:00 62.50 [in_i] [facility] weight 2021-10-17 09:30:00 154 [lb_av] [facility] temperature 2021-10-17 09:30:00 98.6 [degF] [facility] bmi 2021-10-17 09:30:00 27.72 kg/m2 [facility] height 2021-10-17 10:00:00 62.50 [in_i] [facility] weight 2021-10-17 10:00:00 154 [lb_av] [facility] bmi 2021-10-17 10:00:00 27.72 kg/m2 [facility] height 2021-09-14 09:00:00 62.50 [in_i] [facility] weight 2021-09-14 09:00:00 152 [lb_av] [facility] temperature 2021-09-14 09:00:00 97.3 [degF] [facility] bmi 2021-09-14 09:00:00 27.36 kg/m2 [facility] oximetry 2021-09-14 09:00:00 98 % [facility] respiratory rate 2021-09-14 09:00:00 19 /min Comm on [facility] blood pressure 2021-09-14 09:00:00 130 mm[Hg] [facility] - systolic [facility] blood pressure 2021-09-14 09:00:00 80 mm[Hg] [facility] - diastolic [facility] height 2021-03-22 09:40:00 62.50 [in_i] [facility] weight 2021-03-22 09:40:00 152 [lb_av] [facility] temperature 2021-03-22 09:40:00 97.3 [degF] [facility] bmi 2021-03-22 09:40:00 27.36 kg/m2 [facility] oximetry 2021-03-22 09:40:00 97 % [facility] blood pressure 2021-03-22 09:40:00 130 mm[Hg] [facility] - systolic [facility] blood pressure 2021-03-22 09:40:00 70 mm[Hg] [facility] - diastolic [facility] Systolic blood 2021-03-06 20:53:00 142 mm[Hg] Univer sity of pressure [facility] Diastolic blood 2021-03-06 20:53:00 81 mm[Hg] Unive rsity of pressure [facility] Heart rate 2021-03-06 20:53:00 59 /min [facility] Body height 2021-03-06 20:53:00 160 cm [facility] Body weight 2021-03-06 20:53:00 68.221 kg [facility] BMI 2021-03-06 20:53:00 26.64 kg/m2 [facility] Height 2022-09-23 17:31:00 160.02 cm [facility] Weight 2022-09-23 17:31:00 [facility] BMI Calculated 2022-09-23 17:31:00 Sandy Hernandezann Height 2022-08-05 16:00:00 160.02 cm [facility] Weight 2022-08-05 16:00:00 [facility] BMI Calculated 2022-08-05 16:00:00 aSndy mancera [facility] Procedures Procedure Date / Time Performing Clinician Source Performed Measurement of post-voiding 2022-09-23 17:28:00 [facility] residual urine and/or bladder capacity by ultrasound, non-imaging Cystourethroscopy (separate 2022-05-06 17:44:00 [facility] NM BRAIN SPECT W I 123 2021-09-26 20:20:00 Orlando Hernandez [facility] DATSCAIDEE Plan of Care Planned Activity Planned [...] - Td or Tdap)] Future Scheduled 2022-12-[address] [facility] Test 00:00:00 (Season Ended) [code = Medic al Center INFLUENZA VACCINE (Season Ended)] Future Scheduled 2022-12-13 Influenza Vaccine (#1) [facility] 00:00:00 [code = Influenza Medical Ce nter Vaccine (#1)] Future Scheduled 2022-12-13 Influenza Vaccine (#1) [facility] 00:00:00 [code = Influenza Medical Ce nter Vaccine (#1)] Future Scheduled 2022-10-02 Hepatitis C screening [facility] Test 02:53:48 (procedure) [code = 264488185] Future Scheduled 2022-10-02 SHINGLES VACCINES (1 [facility] Test 02:53:48 of 2) [code = SHINGLES VACCINES (1 of 2)] Future Scheduled 2022-10-02 COVID-19 VACCINE (3 - [facility] Test 02:53:48 Moderna series) [code = COVID-19 VACCINE (3 - Moderna series)] Future Scheduled 2022-10-02 65[facility] Test 02:53:48 VACCINE (2 - PCV) [code = 65+ PNEUMOCOCCAL VACCINE (2 - PCV)] Future Scheduled 2022-10-02 INFLUENZA VACCINE [facility] Test 02:53:48 [code = INFLUENZA VACCINE] Future Scheduled 2022-10-02 Hepatitis C screening [facility] Test 02:53:48 (procedure) [code = [id number]] Future Scheduled 2022-10-02 SHINGLES VACCINES (1 [facility] Test 02:53:48 of 2) [code = SHINGLES VACCINES (1 of 2)] Future Scheduled 2022-10-02 COVID-19 VACCINE (3 - [facility] Test 02:53:48 Moderna series) [code = COVID-19 VACCINE (3 - Moderna series)] Future Scheduled 2022-10-02 65+ P[facility]UMOCOCCAL [facility] Test 02:53:48 VACCINE (2 - PCV) [code = 65+ PNEUMOCOCCAL VACCINE (2 - PCV)] Future Scheduled 2022-10-02 INFLUENZA VACCINE Method [facility] Hospital Test 02:53:48 [code = INFLUENZA VACCINE] Future Scheduled 2022-07-17 Hepatitis C screening [facility] Test 02:57:13 (procedure) [code = [id number]] Future Scheduled 2022-07-17 SHINGLES VACCINES (1 [facility] Test 02:57:13 of 2) [code = SHINGLES VACCINES (1 of 2)] Future Scheduled 2022-07-17 COVID-19 VACCINE (3 - [facility] Test 02:57:13 Booster for Moderna series) [...] SCREENING] Future Scheduled 2022-03-27 Hepatitis C screening [facility] Test 02:52:41 (procedure) [code = [id number]] Future Scheduled 2022-03-27 SHINGLES VACCINES (1 [facility] Test 02:52:41 of 2) [code = SHINGLES VACCINES (1 of 2)] Future Scheduled 2022-03-27 COVID-19 VACCINE (3 - [facility] Test 02:52:41 Booster for Moderna series) [code = COVID-19 VACCINE (3 - Booster for Moderna series)] Future Scheduled 2022-03-27 65+ PNEUMOCOCCAL [facility] Test 02:52:41 VACCINE (2 - PCV) [code = 65+ PNEUMOCOCCAL VACCINE (2 - PCV)] Future Scheduled 2022-03-27 INFLUENZA VACCINE Method [facility] Hospital Test 02:52:41 [code = INFLUENZA VACCINE] Future Scheduled 2022-03-05 HEPATITIS B VACCINES Met [facility] Test 08:59:40 (1 of 3 - 3-dose series) [code = HEPATITIS B VACCINES (1 of 3 - 3-dose series)] Future Scheduled 2022-03-05 Hepatitis C screening [facility] Test 08:59:40 (procedure) [code = [id number]] Future Scheduled 2022-03-05 SHINGLES VACCINES (1 [facility] Test 08:59:40 of 2) [code = [...] Future Scheduled 2022-03-05 HEPATITIS B VACCINES [facility] Test 08:59:40 (1 of 3 - 3-dose series) [code = HEPATITIS B VACCINES (1 of 3 - 3-dose series)] Future Scheduled 2022-03-05 Hepatitis C screening [facility] Test 08:59:40 (procedure) [code = [id number]] Future Scheduled 2022-03-05 SHINGLES VACCINES (1 [facility] Test 08:59:40 of 2) [code = [...] PCV)] Future Scheduled 2022-03-05 INFLUENZA VACCINE Method is Hospital Test 08:59:40 [code = INFLUENZA VACCINE] Future Scheduled 2021-12-18 HEPATITIS B VACCINES [facility] Test 13:43:12 (1 of 3 - 3-dose series) [code = HEPATITIS B VACCINES (1 of 3 - 3-dose series)] Future Scheduled 2021-12-18 Hepatitis C screening [facility] Test 13:43:12 (procedure) [code = [id number]] Future Scheduled 2021-12-18 SHINGLES VACCINES (1 [facility] Test 13:43:12 of 2) [code = SHINGLES VACCINES (1 of 2)] Future Scheduled 2021-12-18 COVID-19 VACCINE (3 - [facility] Test 13:43:12 Booster for Moderna series) [code = COVID-19 VACCINE (3 - Booster for Moderna series)] Future Scheduled 2021-12-18 65+ PNEUMOCOCCAL [facility] Test 13:43:12 VACCINE (2 - PCV) [code = 65+ PNEUMOCOCCAL VACCINE (2 - PCV)] Future Scheduled 2021-12-18 INFLUENZA VACCINE Method [facility] Hospital Test 13:43:12 [code = INFLUENZA VACCINE] Future Scheduled 2021-12-13 INFLUENZA VACCINE (#1) [facility] Test 00:00:00 [code = INFLUENZA Medical Ce [...] DXA [facility] Test 00:00:00 SCAN] [facility] Future Scheduled 1942 DXA SCAN [code = DXA [facility] Test 00:00:00 SCAN] [facility] Future Scheduled 1942 DXA SCAN [code = DXA [facility] Test 00:00:00 SCAN] Medical Center Future Scheduled 1942 DXA SCAN [code = DXA [facility] Test 00:00:00 SCAN] Medical Center Future Scheduled 1942 DXA SCAN [code = DXA [facility] Test 00:00:00 SCAN] [facility] Future Scheduled 1942 DXA SCAN [code = DXA [facility] Test 00:00:00 SCAN] [facility] Future Scheduled 1942 DXA SCAN [code = DXA [facility] Test 00:00:00 SCAN] Medical Center Encounters Start End Encounter Admission Attending Care Care Encounter Source Date/Time Date/Time Type Type Clinicians Facility Department ID 2022-07-18 Outpatient [facility] [id number] [place] 10:51:46 [id number] [facility] 2022-07-08 Outpatient [facility] [id number] [place] 14:55:52 [id number] [facility] 2022-05-22 Outpatient Lenka, STLMLC STLMLC [id number] Common 11:48:00 Michelle [id number] [facility] 2022-03-29 Outpatient Richardson, Na STLMLC STLMLC [id number] 2 Common 08:31:00 [id number] [facility] 2022-03-26 Outpatient [facility] [id number] [place] 15:02:57 [id number] [facility] 2021-12-31 Outpatient Richardson, Na STLMLC STLMLC [id number] 2 Common 12:23:00 [facility] 2021-12-26 Outpatient Richardson, Na STLMLC STLMLC [id number] 2 Common 09:29:02 [id number] [facility] 2021-12-18 Outpatient [facility] [id number] [place] 12:59:28 [id number] [facility] 2021-12-06 Outpatient [facility] [id number] [place] 15:09:40 [id number] [facility] 2021-11-13 Outpatient Richardson, Na STLMLC STLMLC [id number] 2 Common 14:29:01 [facility] 2021-09-21 Outpatient Richardson, Na STLMLC STLMLC [id number] 2 Common 07:22:00 [facility] 2021-09-12 Outpatient Richardson, Na STLMLC STLMLC [id number] 2 [facility] 08:38:00 [facility] 2021-06-29 Outpatient Richardson, Na STLMLC STLMLC [id number] 2 Common 16:40:00 [facility] 2021-05-09 Outpatient Richardson, Na STLMLC STLMLC [id number] 2 Common 14:22:23 [id number] [facility] 2021-05-09 Outpatient Richardson, Na STLMLC STLMLC [id number] 2 Common 12:27:36 [id number] [facility] 2021-05-09 Outpatient Richardson, Na STLMLC STLMLC [id number] 2 Common 11:57:36 [id number] [facility] 2021-05-09 Outpatient Richardson, Na STLMLC STLMLC [id number] 2 Common 11:56:47 [id number] [facility] 2021-05-09 Outpatient Richardson, Na STLMLC STLMLC [id number] 2 Common 11:17:40 [id number] [facility] 2021-05-09 Outpatient Richardson, Na STLMLC STLMLC [id number] 2 Common 11:17:26 [id number] [facility] 2021-05-09 Outpatient Richardson, Na STLMLC STLMLC [id number] 2 Common 11:06:28 [id number] [facility] 2021-05-09 Outpatient Richardson, Na STLMLC STLMLC [id number] 2 Common 11:02:04 [id number] [facility] 2021-05-09 Outpatient Richardson, Na STLMLC STLMLC [id number] 2 Common 11:00:00 [id number] [facility] 2021-05-09 Outpatient Richardson, Na STLMLC STLMLC [id number] 2 Common 10:58:35 [id number] [facility] 2023-03-24 2023-03-24 Outpatient [facility] NIKOLAI [id number] [facility] 10:20:00 10:20:00 05 [place] 2023-03-24 2023-03-24 Outpatient MHIE MHIE [id number] [facility] 10:20:00 10:20:00 05 deandre [place] 2022-09-23 2022-09-24 Outpatient [facility] [id number] [facility] 16:20:00 04:59:59 Specialty 04 l [facility] 2022-09-23 2022-09-24 Outpatient [id number] [facility] 16:20:00 04:59:59 Specialty 04 l [facility] 2022-09-23 2022-09-23 Outpatient Staller, MHMG [facility] [id number] 11:20:00 23:59:59 Steff L 2022-09-23 2022-09-23 Outpatient MHIE MHIE [id number] [facility] 11:20:00 11:20:00 04 deandre [place] 2022-08-05 2022-08-06 Outpatient [facility] [id number] [facility] 15:40:00 04:59:59 Specialty 03 l [facility] 2022-08-05 2022-08-06 Outpatient [facility] [id number] [facility] 15:40:00 04:59:59 Specialty 03 l [facility] 2022-08-05 2022-08-05 Outpatient Linneaer, MHMG [facility] [id number] 10:40:00 23:59:59 Steff L 2022-08-05 2022-08-05 Outpatient MHIE MHIE [id number] [facility] 10:40:00 10:40:00 03 [facility] 2022-07-23 2022-07-23 Office [facility] [id number] [place] 13:30:00 14:12:51 Visit Cameron GANT [id number] H [facility] 9.2.7.2.686 PLAZA 2 [id number] 1 2022-07-18 2022-07-18 Outpatient GILBERTO [facility] [id number] [place] 13:30:00 13:30:00 CAMERON Hidalgot 2022-05-222022-05-22 (TEL) STLMLC STLMLC [id number] Co mmon 00:00:00 00:00:00 [facility] 2022-05-06 2022-05-07 Outpatient MHIE [facility] [id number] Memoria 17:00:00 05:59:59 Specialty 02 l [facility] 2022-05-06 2022-05-07 Outpatient MHIE [facility] [id number] Memoria 17:00:00 05:59:59 Specialty 02 l [facility] 2022-05-06 2022-05-06 Outpatient Staller, MHMG MG [id number] 11:00:00 23:59:59 Steff [facility] 2022-05-06 2022-05-06 Outpatient MHIE MHIE [id number] Memoria 11:00:00 11:00:00 02 deandre Rubio 2022-05-06 2022-05-06 (TEL) STLMLC STLMLC [id number] Co mmon 00:00:00 00:00:00 [facility] 2022-04-19 2022-04-20 Between MHIE [facility] Multi [id number] Memoria 15:07:21 15:07:21 Visit Specialty 00 l Powell Ramiro 2022-04-19 2022-04-20 Between MHIE [facility] Multi [id number] Memoria 15:07:21 15:07:[address] [facility] 2022-04-19 2022-04-20 Outpatient MHMG MG [id number] 09:07:21 09:07:21 00 2022-04-19 2022-04-19 (TEL) STLMLC STLMLC [id number] Co mmon 00:00:00 00:00:00 [facility] 2022-04-01 2022-04-02 Outpt Diag MHIE [facility] [id number] Memoria 20:29:00 05:59:00 Services Outpatient 00 l [facility] [place] 2022-04-01 2022-04-02 Outpt Diag MHIE [facility] [id number] Memoria 20:29:00 05:59:00 Services Outpatient 00 l [employer] [place] 2022-04-02 2022-04-02 (TEL) STLMLC STLMLC [id number] Co mmon 00:00:00 00:00:00 [facility] 2022-04-02 2022-04-02 OL DIG E/M STLMLC STLMLC [id number] Common 00:00:00 00:00:00 SVC 21+ [facility] 2022-04-01 2022-04-01 Outpatient Cynthia, EDELMIRA MH29 [id number] 14:29:00 23:59:00 Steff L 2022-03-27 2022-03-27 (TEL) STLMLC STLMLC [id number] Co mmon 00:00:00 00:00:00 [facility] 2022-03-25 2022-03-26 Outpatient MHIE [facility] [id number] Memoria 21:30:00 05:59:59 Specialty 01 l [facility] 2022-03-25 2022-03-26 Outpatient MHIE [facility] [id number] Memoria 21:30:00 05:59:59 Specialty 01 l Clinic [facility] 2022-03-25 2022-03-25 Outpatient Cynthia, MACHO [facility] [id number] 15:30:00 23:59:59 Steff L 2022-03-25 2022-03-25 Outpatient MHIE MHIE [id number] Memoria 15:30:00 15:30:00 01 l Ramiro 2022-03-20 2022-03-20 (TEL) STLMLC STLMLC [id number] Co mmon 00:00:00 00:00:00 [facility] 2022-02-27 2022-02-27 (TEL) STLMLC STLMLC [id number] Co mmon 00:00:00 00:00:00 [facility] 2022-02-13 2022-02-13 (TEL) STLMLC STLMLC [id number] Co mmon 00:00:00 00:00:00 [facility] 2022-01-25 2022-01-25 (TEL) STLMLC STLMLC [id number] Co mmon 00:00:00 00:00:00 [facility] 2022-01-21 2022-01-21 (TEL) STLMLC STLMLC [id number] Co mmon 00:00:00 00:00:00 [facility] 2022-01-07 2022-01-07 (TEL) STLMLC STLMLC [id number] Co mmon 00:00:00 00:00:00 [facility] 2022-01-03 2022-01-03 (TEL) STLMLC STLMLC [id number] Co mmon 00:00:00 00:00:00 [facility] 2022-01-01 2022-01-01 (TEL) STLMLC STLMLC [id number] Co mmon 00:00:00 00:00:00 [facility] 2021-12-28 2021-12-28 OFFICE STLMLC STLMLC [id number] Co mmon 00:00:00 00:00:00 VISIT [facility] PT - CHI LEVEL 4 [facility] 2021-12-24 2021-12-24 OFFICE STLMLC STLMLC [id number] Co mmon 00:00:00 00:00:[address] [facility] PT LEVEL 4 - CHI [facility] 2021-12-20 2021-12-20 (TEL) STLMLC STLMLC [id number] Co mmon 00:00:00 00:00:00 [facility] 2021-12-18 2021-12-18 Outpatient [facility] [id number] [place] 00:00:00 14:55:38 Health 2021-12-18 2021-12-18 Office Gilberto, YAKOV [facility] 1.2.840.114 [id number] [place] 14:15:00 14:55:14 Visit Cameron SUGAR 350.1.13.58 H [facility] 9.2.7.2.686 [address] 2 [id number] [id number] 2021-12-05 2021-12-05 OFFICE STLMLC STLMLC [id number] Co mmon 00:00:00 00:00:00 VISIT [facility]AB PT - CHI LEVEL 2 [facility] 2021-12-04 2021-12-04 (TEL) STLMLC STLMLC [id number] Co mmon 00:00:00 00:00:00 [facility] 2021-11-23 2021-11-23 (TEL) STLMLC STLMLC [id number] Co mmon 00:00:00 00:00:00 [facility] 2021-11-21 2021-11-21 (TEL) STLMLC STLMLC [id number] Co mmon 00:00:00 00:00:00 [facility] 2021-11-15 2021-11-15 (TEL) STLMLC STLMLC [id number] Co mmon 00:00:00 00:00:00 [facility] 2021-11-15 2021-11-15 OFFICE STLMLC STLMLC [id number] Co mmon 00:00:00 00:00:00 VISIT EST Spir it PT LEVEL 3 - [facility] 2021-11-01 2021-11-01 (TEL) STLMLC STLMLC [id number] Co mmon 00:00:00 00:00:00 [facility] 2021-10-25 2021-10-25 OFFICE STLMLC STLMLC [id number] Co mmon 00:00:00 00:00:00 VISIT [facility] ESTAB PT - CHI LEVEL 4 [facility] 2021-10-17 2021-10-17 SUB ANNUAL STLMLC STLMLC [id number] Common 00:00:00 00:00:00 MCR [facility] WELLNESS - CHI VISIT [facility] 2021-10-17 2021-10-17 OL DIG E/M STLMLC STLMLC [id number] Common 00:00:00 00:00:00 C 11-20 Spir it MIN - [facility] 2021-10-05 2021-10-05 (TEL) STLMLC STLMLC [id number] Co mmon 00:00:00 00:00:00 [facility] 2021-09-26 2021-09-26 [place] [address].2.840.1 [id number] Methodi 09:04:13 23:59:00 Encounter Orlando Hooker 18013.1.[address] 3.430.2.7 Hospit a .3.435567 l .8 2021-09-26 2021-09-26 [place] [address].2.840.1 [id number] Methodi 09:04:01 23:59:00 Encounter Orlando Hooker 87723.1.[address] 3.430.2.7 Hospit a .3.034183 l .8 2021-09-26 2021-09-26 Travel 1.2.840.1 1.2.646.537 [id number] Methodi 00:00:00 00:00:[address] 3.430.2.7 0.2.7.3.698 Ho spita .3.452196 084.8 l .8 2021-09-21 2021-09-21 (TEL[facility] [id number] Co mmon 00:00:00 00:00:00 [facility] 2021-09-19 2021-09-19 Travel 1.2.840.1 1.2.404.426 [id number] Methodi 00:00:00 00:00:[address] 3.430.2.7 0.2.7.3.698 Ho spita .3.617919 084.8 l .8 2021-09-18 2021-09-[address]1 [id number] Methodi 00:00:00 00:00:00 Orders Orlando Hooker 49845.1.[address] 3.430.2.7 Hospit a .3.396678 l .8 2021-09-18 2021-09-18 (TEL) STLMLC STLMLC [id number] Co mmon 00:00:00 00:00:00 [facility] 2021-09-14 2021-09-14 OFFICE STLMLC STLMLC [id number] Co mmon 00:00:00 00:00:00 VISIT [facility] LEVEL 4 [facility] 2021-08-07 2021-08-07 (TEL) STLMLC STLMLC [id number] Co mmon 00:00:00 00:00:00 [facility] 2021-08-03 2021-08-03 [facility] 1.2.840.114 [id number] Univers 00:00:00 00:00:00 [facility] 350.1.13.10 ity of [place] [facility] [phone] [place] [id number] Branch BUILDING 2021-07-31 2021-07-31 (TEL) STLMLC STLMLC [id number] Co mmon 00:00:00 00:00:00 [facility] 2021-07-30 2021-07-30 Telephone [facility] 1.2.701.452 [id number] Univers 00:00:00 00:00:00 [facility] 350.1.13.10 it [place] [phone] [place] [address] [address] OFFICE BUILDING 2021-06-28 2021-06-28 (TEL) STLMLC STLMLC [id number] Co mmon 00:00:00 00:00:00 [facility] 2021-05-15 2021-05-15 (TEL) STLMLC STLMLC [id number] Co mmon 00:00:00 00:00:00 [facility] 2021-04-19 2021-04-19 (TEL) STLMLC STLMLC [id number] Co mmon 00:00:00 00:00:00 [facility] 2021-04-18 2021-04-18 (TEL) STLMLC STLMLC [id number] Co mmon 00:00:00 00:00:00 [facility] 2021-04-18 2021-04-18 OL DIG E/M STLMLC STLMLC [id number] Common 00:00:00 00:00:00 [facility] 11-20 Spir it MIN - CHI [facility] 2021-03-27 2021-03-27 (TEL) STLMLC STLMLC [id number] Co mmon 00:00:00 00:00:00 Spirit - CHI [facility] 2021-03-26 2021-03-26 (TEL) STLMLC STLMLC [id number] Co mmon 00:00:00 00:00:00 Spirit CHI [facility] 2021-03-22 2021-03-22 OFFICE STLMLC STLMLC [id number] Co mmon 00:00:00 00:00:00 VISIT [facility] PT [facility] LEVEL 4 [facility] 2021-03-21 2021-03-21 (TEL) STLMLC STLMLC [id number] Co mmon 00:00:00 00:00:00 [facility] 2021-03-06 2021-03-06 Outpatient R DAVID YDOER [facility] [id number] Univers 14:30:00 16:29:31 [facility] 2021-03-06 2021-03-06 Office Georgette [facility] 1.2.840.114 [id number] Univers 14:02:51 16:29:[address] [facility] 350.1.13.10 it [place] of [place]2.7.2.686 [place] [id number] [address] OFFICE BUILDING 2021-02-09 2021-02-09 Outpatient R JOSÉ MIGUEL OLIVERA [facility] [id number] Univers 10:40:00 14:58:48 [facility] 2021-02-09 2021-02-09 Office Joselin [facility] 1.2.840.114 [id number] Univers 10:20:50 14:58:48 Visit José Miguel [facility] 350.1.13.10 ity silvia [place] 4.2.7.2.686 [place] ARISTIDES?BLEA [phone] [address] MEDICAL OFFICE BUILDING 2021-01-29 2021-01-29 (TEL) STLMLC STLMLC [id number] Co mmon 00:00:00 00:00:00 Spirit - [facility] 2021-01-22 2021-01-[address] [facility] 1.2.840.114 [id number] Univers 12:28:09 23:59:00 Encounter Matt Glamit 350.1.13.10 it[place] [phone] [address] Office Building 2021-01-22 2021-01-22 Outpatient R NARESH [facility] [id number] Univers 13:00:00 13:00:00 [facility] ity o f [facility] 2021-01-16 2021-01-16 Telephone Christoph, 1.2.840.8 [id number] Methodi 00:00:00 00:00:[address] 3.430.2.7 Hospit a .3.315712 l .8 2021-01-10 2021-01-10 Telephone Joselin [facility] 1.2.840.114 [id number] Univers 00:00:00 00:00:00 José Miguel [employer] 350.1.13.10 ity of [place] 4.2.7.2.686 [place] Aristides?Blea [phone] [address] Office Building 2021-01-09 2021-01-09 Office Joselin [facility] 1.2.840.114 [id number] Univers 10:30:28 12:43:54 Visit José Miguel [employer] 350.1.13.10 ity of [place] 4.2.7.2.686 [place] Aristides?Blea [phone] [address] Office Building 2021-01-09 2021-01-09 Outpatient R JOSÉ MIGUEL OLIVERA [facility] [id number] Univers 11:00:00 11:00:00 JOSÉ MIGUEL OLIVERA [facility] [place] [place] 2021-01-09 2021-01-09 Orders Doctor BURNETT 1.2.840.114 [id number] Univers 00:00:00 00:00:00 Only Unassigned, JUANA 350.1.13.10 ity of [place] [facility] 4.2.7.2.686 [place] as [phone] [address] 2021-01-05 2021-01-05 Outpatient MHIE MHIE [id number] Memoria 15:00:00 15:00:00 00 [place]re [place] 2021-01-05 2021-01-05 Outpatient MHIE MHIE [id number] Memoria 15:00:00 15:00:00 00 deandre [place] 2020-12-25 2020-12-25 Office Joselin [facility] 1.2.840.114 [id number] Univers 09:37:18 10:27:29 Visit [facility] 350.1.13.10 ity of [place] 4.2.7.2.686 [place] Aristides?Blea [phone] [address] Medical Office [facility] 2020-12-25 2020-12-25 Outpatient R JOSÉ MIGUEL OLIVERA [facility] [id number] Univers 10:00:00 10:00:00 JOSÉ MIGUEL OLIVERA ity [facility] [place] 2020-12-25 2020-12-25 Orders Doctor HORTENCIA 1.2.840.114 [id number] Univers 00:00:00 00:00:00 Only Unassigned, JUANA 350.1.13.10 ity of [place] [facility] 4.2.7.2.686 [place] as [phone] [address] 2020-12-25 2020-12-25 [facility] [id number] Common 00:00:00 00:00:00 [facility] 2020-12-20 2020-12-20 Ambulatory nullFlavo MNA [id number] Memoria 19:15:00 19:15:00 Pre-Reg r Neurology 00 l Anup Rubio 2020-12-20 2020-12-20 Outpatient YANET SkaggsMISCHISIDRO [id number] 14:15:00 14:15:00 Kayden Susan Cr 2020-12-07 2020-12-07 [facility] [id number] Common 00:00:00 00:00:00 [facility] 2020-12-05 2020-12-05 Outpatient STLMLC STLMLC [id number] Common 00:00:00 00:00:00 [facility] 2020-12-02 2020-12-02 Outpatient STLMLC STLMLC [id number] Common 00:00:00 00:00:00 [facility] 2020-08-30 2020-08-30 Outpatient STLMLC STLMLC [id number] Common 00:00:00 00:00:00 [facility] 2020-08-25 2020-08-25 Outpatient STLMLC STLMLC [id number] Common 00:00:00 00:00:00 [facility] 2020-07-02 2020-07-02 Outpatient STLMLC STLMLC [id number] Common 00:00:00 00:00:00 [facility] 2020-05-24 2020-05-24 Outpatient STLMLC STLMLC [id number] Common 00:00:00 00:00:00 [facility] 2020-05-18 2020-05-18 Outpatient STLMLC STLMLC [id number] Common 00:00:00 00:00:00 [facility] 2020-04-03 2020-04-03 Office ROJELIO Whitney 1.2.840.114 [id number] 11:14:50 14:12:42 Visit Boone AMBULATOR 350.1.13.21 Y 0.2.7.2.686 [id number] 2020-04-03 2020-04-03 Office ViROJELIO 1.2.840.114 [id number] 09:55:09 13:25:28 Visit Junior AMBULATOR 350.1.13.21 Y 0.2.7.2.686 [id number] 600 2020-04-03 2020-04-03 Outpatient [facility] [id number] SLE 00:00:00 00:00:00 [place] 2020-04-03 2020-04-03 Outpatient BLANCACAROLINA IRIS [facility] [id number] SLE 00:00:00 00:00:00 [place] 2020-04-03 2020-04-03 Outpatient LEVI WHITNEY, [facility] [id number] SLE 00:00:00 00:00:00 [place] 2020-02-28 2020-02-28 Outpatient STLMLC STLMLC [id number] Common 00:00:00 00:00:00 [facility] 2020-02-03 2020-02-03 Outpatient STLMLC STLMLC [id number] Common 00:00:00 00:00:00 [facility] 2020-02-01 2020-02-01 Outpatient WILLIAMS, [facility] [id number] [place] 00:00:00 00:00:00 TYLER [address] 2020-01-24 2020-01-24 Outpatient STLMLC STLMLC [id number] Common 00:00:00 00:00:00 [facility] 2019-11-26 2019-11-26 [facility] [id number] Common 09:00:00 09:00:[address] [facility] 2019-10-20 2019-10-20 Outpatient [facility] [id number] Common 09:20:00 09:20:[address] [facility] 2019-10-20 2019-10-20 Outpatient [facility] [id number] Common 09:00:00 09:00:[address] [facility] 2019-10-18 2019-10-18 Outpatient [facility] [id number] Common 14:40:00 14:40:[address] [facility] 2019-10-18 2019-10-18 Outpatient [facility] [id number] Common 07:56:00 07:56:[address] [facility] 2019-09-14 2019-09-14 Outpatient CHRISTOPH, [facility] [id number] [place] 00:00:00 00:00:00 ASUNCION [address] 2019-07-20 2019-07-20 [facility] [id number] Common 09:20:00 09:20:[address] [facility] 2019-06-16 2019-06-16 Outpatient [facility] [id number] Common 10:47:00 10:47:[address] [facility] 2019-05-26 2019-05-26 Outpatient [facility] [id number] Common 10:40:00 10:40:[address] [facility] 2019-05-20 2019-05-20 Outpatient [facility] [id number] Common 15:50:00 15:50:[address] [facility] 2019-04-26 2019-04-26 Outpatient [facility] [id number] Common 11:20:00 11:20:[address] [facility] 2019-03-26 2019-03-31 Inpatient CHRISTOPH, [facility] [id number] [place] 00:00:00 00:00:00 ASUNCION [address] 2019-03-24 2019-03-24 Out[facility] [id number] Common 16:48:00 16:48:[address] [facility] 2019-03-18 2019-03-18 Outpatient CHRISTOPH, [facility] [id number] [place] 00:00:00 00:00:00 ASUNCION [address] 2019-03-16 2019-03-16 Outpatient [facility] [id number] Common 13:20:00 13:20:[address] [facility] 2019-02-18 2019-02-18 Outpatient [facility] [id number] Common 10:33:00 10:33:[address] [facility] 2019-01-26 2019-01-26 Outpatient [facility] [id number] Common 13:40:00 13:40:[address] [facility] 2018-12-29 2018-12-29 Outpatient [facility] [id number] Common 08:00:00 08:00:[address] [facility] 2018-11-19 2018-11-19 Outpatient [facility] [id number] Common 09:40:00 09:40:[address] [facility] 2018-09-24 2018-09-24 Outpatient [facility] [id number] Common 15:43:00 15:43:[address] [facility] 2018-07-16 2018-07-16 Outpatient [facility] [id number] Common 10:00:00 10:00:[address] [facility] 2018-04-16 2018-04-16 Outpatient [facility] [id number] Common 09:30:00 09:30:[address] [facility] 2018-03-25 2018-03-25 Outpatient [facility] [id number] Common 13:50:00 13:50:[address] [facility] 2018-01-29 2018-01-29 Outpatient [facility] [id number] Common 10:29:00 10:29:[address] [facility] 2018-01-14 2018-01-14 Outpatient [facility] [id number] Common 08:45:00 08:45:[address] [facility] 2017-10-16 2017-10-16 Outpatient [facility] [id number] Common 09:15:00 09:15:[address] [facility] 2017-10-06 2017-10-06 Outpatient [facility] [id number] Common 15:44:00 15:44:[address] [facility] 2017-09-19 2017-09-19 Outpatient [facility] [id number] Common 14:57:00 14:57:[address] [facility] 2017-09-12 2017-09-12 Outpatient Elif Gonzalez [id number] Common 15:09:00 15:09:[address] [facility] 2017-09-04 2017-09-04 Outpatient Elif Gonzalez [id number] Common 14:45:00 14:45:[address] [facility] Results Test Description Test Time Test Comments Results Result Comments Source RADRPT 2022-04-03 04:42:14 Test Item Value Reference Range Interpretation Comme nts RADRPT (test code = RADRPT) Abdomen 2 views [...] spine and lateral subluxation of L2 on [id number] [id number] 04:42:14 Test Item Value Reference Range Interpretation Comments RADRPT (test Abdomen 2 views DX code = RADRPT) HISTORY/INDICATIONS:81 years Female - recurrent UTI/constipationVIEWS: 2COMPARISON: NoneFINDINGS:There [...] spine and lateral subluxation of L2 on [id number] [id number] 05:44:32 Test Item Value Reference Range Interpretation [...] in both kidneys, consistent with medical renal disease..[id number] [id number] 05:44:32 Test Item Value Reference Range Interpretation [...] in both kidneys, consistent with medical renal disease..[id number] [facility], SPINE, LUMBAR, 2 OR 3 [id number] 14:54:00Reason for Exam:->scoliosis, unspecified scoliosis type, unspecified spinal regionReason for Exam:->chrnoic bilateral low back pain without sciatica [facility] 1940 Sex: FFINAL [...] MDReport Verified Date/Time: 04/03/2020 14:54:19 Reading Location: [facility] Reading Room [address] [place] [address] RAD, SPINE, THORACIC, 2 [id number] 14:54:00Reason for Exam:- >scoliosis, unspecified scoliosis type, unspecified spinal region,Reason for Exam:->chronic bilateral low back pain without sciaticaReason for Exam:- >compresseion deformity ofverebra [facility] : 1940 Sex: FFINAL [...] MDReport Verified Date/Time: 04/03/2020 14:54:19 Reading Location: [facility] Reading Room [address] [place] [address] RAD, SPINE, CERVICAL, COMPLETE (MIN 4 VIEWS)2020-04-03 14:49:00Reason for Exam:->scoliosis, unspecified scoliosis type, unspecifed spinalregion [facility] : 1940 Sex: FFINAL REPORT [...] cervical spondyloarthropathy with foraminal stenosis Signed:Pravin Newman MDReport Verified Date/Time: 04/03/2020 14:49:24 Reading Location: [facility] Reading Room [address] [place] [address] TISSUE EXAM 2017-10-03 09:01:00Surgical Pathology Report Case: [id number] Authorizing Provider: Junior Leslie Collected: 09/25/2017 1616 MD Vikas Ordering Location: [facility] PERIOPERATIVE Received: 09/26/2017 0802 SERVICES Pathologist: Jason You MD Specimen: Femoral Head, Right Hip BONE, RIGHT HIP, ARTHROPLASTY: -OSTEOARTHRITIS Signing Pathologist Direct Phone Line: [phone] signed by Jason You MD on 10/03/2017 at 9:01 [id number] hip arthritisRight femoral headThe specimen is received [...] the tidemark with eburnation and osteophyte formation.The synovialtissue reveals subsynovial edema with chronic inflammation.POCT-GLUCOSE [id number] 08:07:00 Test Item Value Reference Range Interpretation Comments POC-GLUCOSE METER 302 mg/dL 70-110 H TESTED AT [place] [address] ([facility]) (test code = [facility] 1538) [address] BASIC METABOLIC [id number] 07:09:00 Test Item Value Reference Range Interpretation [...] APPLICABLE FOR DIALYSIS PATIEN TS. HEMOGLOBIN AND [id number] 06:38:00 Test Item Value Reference Range Interpretation Comments HEMOGLOBIN (BEAKER) (test code = 9.4 GM/DL 11.2-15.7 L 410) HEMATOCRIT (BEAKER) (test code = 29.5 % 34.1-44.9 L 411) POCT-GLUCOSE [id number] 21:34:00 Test Item Value Reference Range Interpretation Comments POC-GLUCOSE METER 298 mg/dL 70-110 H TESTED AT [place] [id number] ([facility]) (test code = [facility] 1538) [address] BASIC METABOLIC [id number] 18:58:00 Test Item Value Reference Range Interpretation [...] NOT APPLICABLE FOR DIALYSIS PATIEN TS. POCT-GLUCOSE [id number] 17:06:00 Test Item Value Reference Range Interpretation Comments POC-GLUCOSE METER 228 mg/dL 70-110 H TESTED AT [facility] ([facility]) (test code = [facility] 1538) [address] RAD, CHEST, 1 VIEW, NON [id number] 15:01:00Reason for exam:->feverShould this be performed at the bedside?->YesFINAL REPORT TECHNIQUE: Frontal chest radiograph dated 09/26/2017. CLINICAL HISTORY: Fever COMPARISON STUDY: None IMPRESSION:There is minimal atelectasis in the left lung base. Right lung is clear. No pleural effusion or pneumothorax. Cardiomediastinal silhouette is normal in size.No pulmonary edema. Degenerative changes are seen in the spine. Bones are osteopenic. No fracture. Signed: Tommy Alberteport Verified Date/Time: 09/26/2017 15:01:38 Reading Location: [facility] Radiology Reading Room BASI METABOLIC [id number] 14:39:00 Test Item Value Reference Range Interpretation [...] S NOT APPLICABLE FOR DIALYSIS PATIEN TS. [id number] 13:26:00 Test Item Value Reference Range Interpretation Comments POTASSIUM (BEAKER) (test code = 5.4 meq/L 3.5-5.1 H 379) POCT-GLUCOSE [id number] 12:40:00 Test Item Value Reference Range Interpretation Comments POC-GLUCOSE METER 230 mg/dL 70-110 H TESTED AT [facility] 6720 (BEAKER) (test code = [place] 1538) [id number] POCT-GLUCOSE [id number] 07:49:00 Test Item Value Reference Range Interpretation Comments POC-GLUCOSE METER 166 mg/dL 70-110 H TESTED AT [facility] 6720 (BEAKER) (test code = [place] 1538) [id number] BASIC METABOLIC [id number] 07:13:00 Test Item Value Reference Range Interpretation [...] APPLICABLE FOR DIALYSIS PATIEN TS. BASIC METABOLIC [id number] 05:22:00 Test Item Value Reference Range Interpretation [...] APPLICABLE FOR DIALYSIS PATIEN TS. HEMOGLOBIN AND [id number] 04:55:00 Test Item Value Reference Range Interpretation Comments HEMOGLOBIN (BEAKER) (test code = 10.6 GM/DL 11.2-15.7 L 410) HEMATOCRIT (BEAKER) (test code = 34.1 % 34.1-44.9 411) POCT-GLUCOSE [id number] 22:27:00 Test Item Value Reference Range Interpretation Comments POC-GLUCOSE METER 254 mg/dL 70-110 H TESTED AT [facility] 67[address] ([facility]) (test code = JOHANA Cuello [facility] 1538) [id number] RAD, PELVIS, 1 OR 2 [id number] 19:48:00Reason for exam:->s/p THAShould this be performed [...] Stewart Verified Date/Time: 09/25/2017 19:48:33 Reading Location: [address] Consult Reading Room 07:48 PMPOCT-GLUCOSE [id number] 19:19:00 Test Item Value Reference Range Interpretation Comments POC-GLUCOSE METER 173 mg/dL 70-110 H TESTED AT [facility] 67[address] ([facility]) (test code = JOHANA Cuello [facility] 1538) [id number] RAD, PELVIS, 1 OR 2 [id number] 17:03:00Reason for exam:->hip osteoarthritisFINAL REPORT Technique: Single intraoperative image of the pelvis submitted. FINDINGS: Single limited view of the pelvis demonstrates left hip arthroplasty in progress. Correlationwith intraprocedural findings recommended. Signed: Mik Baronort Verified Date/Time: 17:03:04 Reading Location: [facility] Reading Room [id number] 12:48:00 Test Item Value Reference Range Interpretation Comments SODIUM (BEAKER) (test code = 381) 138 meq/L 136-145 POTASSIUM (BEAKER) (test code = 4.7 meq/L 3.5-5.1 379) CHLORIDE (BEAKER) (test code = 382) 105 meq/L 98-107 CO2 (BEAKER) (test code = 355) 23 meq/L 22-29 BUN AND [id number] 12:48:00 Test Item Value Reference Range Interpretation Comments BLOOD UREA NITROGEN 19 mg/dL 7-21 (BEAKER) (test code = 354) CREATININE (BEAKER) 1.06 mg/dL 0.57-1.25 (test code = 358) EGFR (BEAKER) (test 51 mL/min/1.73 ESTIMA EDWIN GFR IS code = 1092) sq m NOT ACCURATE CREATININE CLEARANCE IN PREDICTING GLOMERULAR FILTRATION RATE . ESTIMATED GFR I S NOT APPLICABLE FOR DIALYSIS PATIEN TS. POCT-GLUCOSE [id number] 12:31:00 Test Item Value Reference Range Interpretation Comments POC-GLUCOSE METER 131 mg/dL 70-110 H TESTED AT [facility] 6720 ([place]) (test code = [place] 1538) [id number] 11:03:00 Test Item Value Reference Range Interpretation Comments HEMOGLOBIN (BEAKER) (test code = 12.8 GM/DL 11.2-15.7 410) PLATELET [id number] 11:03:00 Test Item Value Reference Range Interpretation Comments PLATELET COUNT (BEAKER) (test 213 K/CU MM 150-450 code = 756) Notes Date/Time Note Provider Source 2022-04-01 15:03:56-00:00 Abdomen 2 views DX [facility] [place] HISTORY/INDICATIONS:81 years Female - recurrent UTI/constipation VIEWS: [...] and lateral subluxation of L2 on L3 [id number] 2022-04-01 15:03:56-00:00 Abdomen 2 views DX [facility] [place] HISTORY/INDICATIONS:81 years Female - recurrent UTI/constipation VIEWS: [...] and lateral subluxation of L2 on L3 [id number] 2022-04-01 14:39:59-00:00 Retroperitoneal Complete US [employer] HISTORY/INDICATIONS:81 years Female UTI - Withou t [...] both kidneys, consistent with medical renal disease.. [id number] 2022-04-01 14:39:59-00:00 Retroperitoneal Complete US [facility] [place] HISTORY/INDICATIONS:81 years Female UTI - Withou t [...] both kidneys, consistent with medical renal disease.. [id number]
[2022-10-22 15:09] VITALS: BMI 25.7
[2022-10-22] MEDS ORDERED: GLUCAGON 1 MG/VIAL IM PRN (15:59)
[2022-10-22] MEDS ORDERED: D10W 250 ML BAG IV PRN (15:59)
[2022-10-22] MEDS ORDERED: MELATONIN 5 MG TABLET PO PRN (16:19)
[2022-10-22] MEDS ORDERED: OXYCODONE HCL 5 MG TAB PO PRN (16:20)
[2022-10-22] MEDS ORDERED: ACETAMINOPHEN 500 MG TAB PO PRN (16:21)
[2022-10-22] MEDS ORDERED: ONDANSETRON 4 MG (ODT) TAB PO PRN (16:22)
[2022-10-22] MEDS ORDERED: INSULIN -REGULAR HUMAN 50 UNIT/0.5 ML ML SQ SCH ×2 (16:30→17:56)
[2022-10-22] MEDS: METOPROLOL TAR 25 MG TAB PO SCH (17:22)
[2022-10-22] MEDS: BUSPIRONE HCL 5 MG TABLET PO SCH ×2 (17:23→21:30)
[2022-10-22] MEDS: ALBUTEROL 2.5 MG/3 ML NEB SOL NEB SCH (20:10)
[2022-10-22] MEDS: FLONASE NAS SCH (21:00)
[2022-10-22] MEDS: TRAZODONE 50 MG TABLET PO SCH (21:29)
[2022-10-22] MEDS: ATORVASTATIN 10 MG TAB PO SCH (21:30)
[2022-10-22] MEDS: APIXABAN 5 MG TABLET PO SCH (21:30)
[2022-10-22] MEDS: GABAPENTIN 300 MG CAP PO SCH (21:30)
[2022-10-22] MEDS: DONEPEZIL HCL 5 MG TAB PO SCH (21:30)
[2022-10-22] MEDS: CARBIDOPA/LEVODOPA 25/100 TAB PO SCH (21:30)
[2022-10-22] MEDS: SODIUM CHLORIDE 0.9% 10ML INJ IV SCH (21:44)
[2022-10-22] MEDS: OXYCODONE HCL 5 MG TAB PO PRN (22:16)
[2022-10-22] MEDS: RESTASIS OPTHALMIC OPTH SCH (22:16)
[2022-10-23] MEDS: ALBUTEROL 2.5 MG/3 ML NEB SOL NEB SCH ×4 (02:00→20:20)
[2022-10-23] MEDS ORDERED: INSULIN -REGULAR HUMAN 50 UNIT/0.5 ML ML SQ ONE (05:30)
[2022-10-23] MEDS: METOPROLOL TAR 25 MG TAB PO SCH ×2 (05:35→16:55)
[2022-10-23 06:33] LABS: Absolute Lymphocytes (CBC) 1.7 K/uL (0.7-4.9); Hematocrit 29.6 % (36.0-45.0); Lymphocytes % 24.2 % (15.3-44.8); MPV 10.2 fL (7.6-11.3); RBC Red Blood Cell Count 3.32 M/uL (3.86-4.86)
[2022-10-23] MEDS: PANTOPRAZOLE 40MG TABLET PO SCH (06:48)
[2022-10-23] MEDS: CEFTRIAXONE 1,000 MG in NA CHLORIDE 0.9% 50 ML IVPB SCH (06:49)
[2022-10-23 06:51] LABS: Albumin 2.5 g/dL (3.4-5.0); Magnesium 2.1 mg/dL (1.6-2.4); Potassium 3.5 mEq/L (3.5-5.1); Prealbumin 14.6 mg/dL (20-40)
[2022-10-23] MEDS: INSULIN -REGULAR HUMAN 50 UNIT/0.5 ML ML SQ SCH ×4 (07:30→21:23)
[2022-10-23] MEDS: AMLODIPINE 10 MG TAB PO SCH ×2 (08:00→11:43)
[2022-10-23] MEDS: LACTOBACILLUS/ACIDOPHILUS TAB PO SCH (08:08)
[2022-10-23] MEDS: VITAMIN B COMPLEX 1 CAP PO SCH (08:08)
[2022-10-23] MEDS: RESTASIS OPTHALMIC OPTH SCH ×2 (08:08→21:22)
[2022-10-23] MEDS: DULOXETINE 30 MG CAP PO SCH (08:08)
[2022-10-23] MEDS: BUSPIRONE HCL 5 MG TABLET PO SCH ×4 (08:09→21:21)
[2022-10-23] MEDS: APIXABAN 5 MG TABLET PO SCH ×2 (08:09→21:21)
[2022-10-23] MEDS: FOLIC ACID 1 MG TABLET PO SCH (08:09)
[2022-10-23] MEDS: CARBIDOPA/LEVODOPA 25/100 TAB PO SCH ×2 (08:09→21:21)
[2022-10-23] MEDS: GABAPENTIN 300 MG CAP PO SCH (08:09)
[2022-10-23] MEDS: MYRBETRIQ 50 MG PO SCH (08:10)
[2022-10-23] MEDS: OXYCODONE HCL 5 MG TAB PO PRN ×2 (08:37→21:21)
[2022-10-23] MEDS: SODIUM CHLORIDE 0.9% 10ML INJ IV SCH ×2 (09:54→21:22)
[2022-10-23] MEDS ORDERED: INSULIN -REGULAR HUMAN 50 UNIT/0.5 ML ML SQ SCH (11:30)
[2022-10-23] MEDS: GABAPENTIN 400 MG CAP PO SCH (21:20)
[2022-10-23] MEDS: ATORVASTATIN 10 MG TAB PO SCH (21:20)
[2022-10-23] MEDS: AMLODIPINE 5 MG TAB PO SCH (21:21)
[2022-10-23] MEDS: DONEPEZIL HCL 5 MG TAB PO SCH (21:21)
[2022-10-23] MEDS: GLUCERNA SHAKE 237 ML CAN PO SCH (21:22)
[2022-10-23] MEDS: TRAZODONE 50 MG TABLET PO SCH (21:22)
[2022-10-23] MEDS: FLONASE NAS SCH (21:22)
--- NOTE | 2022-10-23 22:14 | HP ---
Date of Admission: 10/22/2022 Time Of Service: 9 a.m. Chief Complaint: "I became confused and weak." History Of Present Illness: Ms. Conrad is a 81-year-old right-handed patient with multiple medical problems including insulin-dependent diabetes mellitus, anxiety, COPD, gastroesophageal refl ux disease, hypertension, dyslipidemia who came to [facility] on 10/13/2022 with worsening al tered mental status. The patient had been developing more confusion per her family with difficulty c oncentrating and interacting as she usually does. She was found to have mild cough, shortness of radha ath that worsened with exertion. She had a fever of 101.3 with poor appetite, diffuse muscle aches, and generalized weakness. She received IV Lasix and started on Rocephin for presumed systemic infect ion. She had electrolyte abnormality of low potassium and that was replaced. She was given pulmonar y treatment for COPD, started on insulin sliding scale to manage hyperglycemia, and antihypertensive medications and GERD and anxiety medications were continued. Chest x-ray did not reveal pneumonia. However, blood cultures revealed gram-negative bacteremia and Infectious Disease followed the patient . She did have a diagnosis of metabolic encephalopathy, likely secondary to the bacteremia and E col i. She continued the Rocephin scheduled for 2 weeks from 10/13/2022 to 10/28/2022. The patient's le ukocytosis did resolve in acute care along with her fever and the patient was evaluated by the Cardio logy Service and found to have new onset atrial fibrillation treated with beta willard and Eliquis. She did have a PICC line placed. Likely after starting antibiotic, she developed diarrhea, which did improve. As a result of her complicated hospital course, she became significantly debilitated and r equired moderate assistance to complete bed mobility, maximal assistance for turning over in bed, and ability to get in and out of bed and ambulate 50 feet with a rolling walker, she was minimum assista nce level. She did require oxygen via nasal cannula, but was able to get her oxygen saturation up to 96%. As a result of all the complications and the need for aggressive therapy, she was determined t o be an appropriate candidate for inpatient rehabilitation. Past Medical History: Hypertension, osteoarthritis, gastroesophageal reflux disease, diabetes mellit us type 2, dyslipidemia, COPD, anxiety. Past Surgical History: Hysterectomy, cataract surgery, lap band surgery and reversal. X-ray Imaging: On 10/13 x-ray of the chest showed no acute abnormalities. Allergies: NO KNOWN DRUG ALLERGIES. Medications: Tylenol 500 mg every 4 hours, albuterol nebulizer 2.5 mg every 6 hours as needed, Norva sc 10 mg daily, Eliquis 5 mg twice daily, Lipitor 10 mg at bedtime, BuSpar 5 mg 4 times daily, Sineme t 25/100 one tablet twice daily, Rocephin, she will complete as noted 2 weeks of 1 g daily, folic aci d 1 mg daily, duloxetine 90 mg daily, gabapentin 1200 mg twice daily, Lactinex 1 tablet daily, ipratr opium nebulizer 0.5 mg every 6 hours as needed, lidocaine patch 1 patch applied topically daily, april tonin 10 at bedtime, Lopressor 25 mg twice daily, Zofran 4 mg every 4 hours as needed, Desyrel 100 mg at bedtime, Protonix 40 mg daily, OxyIR 10 mg every 6 hours as needed, vitamin B complex 1 capsule d aily. Family History: Noncontributory. Social History: No alcohol, tobacco, or IV drug use. Patient lives with her . Laboratory Studies: White blood cell count 8.5, hemoglobin 10.2, hematocrit 30.1, platelets 186. So dium 143, potassium 3.7, glucose 126, BUN 10, creatinine 0.66. Calcium 8.4, magnesium 2.0. Albumin 2.5. Review of Systems: She denies any fevers, chills, nausea, vomiting. No significant myalgias, arthralgias, rash, headach e, or weight change. Diffuse weakness and some difficulty with sleep. Some issues with loose stools . No urinary complaints. Physical Examination: Vital Signs: Blood pressure 143/64, pulse 63, respiratory rate 18, temperature 97.2, oxygen saturati on 95%. General: Ms. Conrad is resting in bed. Her is at the bedside. She is awaiting the therapis t to begin. HEENT: She is normocephalic, atraumatic. Sclerae anicteric. Oropharynx is moist. Neck: Supple. Chest: Clear. Heart: Irregularly irregular. Abdomen: Soft. Extremities: No significant edema or cyanosis. Neurologic: She has diffuse weakness of lower extremities and decreased stocking-glove sensation to light touch and temperature. Depressed reflexes. She will be ambulated with the physical therapist with a gait belt. Current Level Of Functioning: Currently she requires contact guard assistance to ambulate with saúli ng walker is 50 feet, moderate assistance for toileting, transfer from bed to chair maximum assistanc e, sit to stand moderate assistance, maximum assistance for sliding in the bed and sit to lying maxim um assistance, rolling left to right moderate assistance and right to left moderate assistance, lower body dressing maximum assistance, upper body dressing moderate assistance, bathing maximum assistanc e, toilet hygiene moderate assistance, oral hygiene just supervision. Medical And Rehabilitation Assessment And Plan: Ms. 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 Her impairmen t group code is 02.1 nontraumatic. Her etiologic diagnosis is metabolic encephalopathy. Her comorbi ds are atrial fibrillation, COPD, diabetes mellitus, gastroesophageal reflux disease, dyslipidemia, h ypertension, hypokalemia, Parkinson disease, urinary tract infection. Plan: 1.She will have physical and occupational therapy for 3 hours a day, 5 of 7 days. 2.Her comorbid conditions will be addressed by continuing her medications for each condition, which will include vitamin B complex, Desyrel, sodium chloride, Protonix. Pain will be managed by damian Nashod pressure with Lopressor. She has lidocaine patch for pain, melatonin for insomnia. She has ins ulin sliding scale, gabapentin 1200 mg twice daily for neuropathic pain. Continue Rocephin for 2 wee ks as noted. Continue Eliquis 5 mg twice daily for atrial fibrillation and Norvasc also for hyperten blu. Impact Of Comorbids: She does require continued antibiotics. White blood cell count and temperature will be monitored on a regular basis per shift. Her atrial fibrillation does put her at risk for de ep vein thrombosis and stroke. She is on Eliquis that will be continued. She does have difficulty w ith sleep and that can impact her recovery. She has melatonin for that. Rehab Specific Plan: 1.She will have physical, occupational, and speech therapy for 3-1/2 hours, 5 of 7 days. 2.She has multiple comorbidities that will be addressed as appropriately and she will have the skill ed nursing to address pain, blood draws, imaging as needed. 3.Ms. Conrad has a good understanding and her both of them about the process of inpatient re habilitation requiring multiple disciplines. She has a potential to improve very well and will have aggressive physical, occupational, and speech therapy. In addition, services from the Nutrition Serv ice, ID Service, Pulmonary Service will be consulted as appropriate. Given her complex medical condi tion and risk of further complications, rehabilitation cannot be safely or effectively provided at e lower level of care such as shelter. Barriers To Discharge: Currently she does have antibiotics ongoing that is oral and not likely to be a significant barrier. She does have some issues of mild cognitive impairment. Again, communicatin g very well, not likely to be a barrier. She will have speech therapy to help. Issues of loose stoo ls are resolving and not likely to be a barrier. Estimated Length Of Stay: About 14 days. Disposition: Home with . Prognosis: Good. Rehabilitation Goals: 1.Independent with upper and lower body dressing, transferring, toileting. 2.Independently ambulating 250 feet. 3.Independent going up and down 5 steps. 4.Independent with cognitive functioning. The above goals have been reviewed with Ms. Conrad and her and they are in agreement. I acknowledge I have personally performed a full physical examination on Ms. Conrad no later than 24 hours after admission to the inpatient rehabilitation facility and determined that she is able to bertram erate the above course of treatment at an intensive level for a reasonable period of time. A detaile d individualized plan of care for her will be completed by hospital day 4 based on the preadmission s creen history and physical and therapy evaluations. GWEN Voice ID: [id number]
[2022-10-24] MEDS: ALBUTEROL 2.5 MG/3 ML NEB SOL NEB SCH ×4 (02:00→19:40)
[2022-10-24] MEDS: OXYCODONE HCL 5 MG TAB PO PRN ×3 (03:48→20:17)
[2022-10-24 04:51] LABS: Absolute Lymphocytes (CBC) 1.8 K/uL (0.7-4.9); MPV 10.9 fL (7.6-11.3); RBC Red Blood Cell Count 3.48 M/uL (3.86-4.86)
[2022-10-24] MEDS: METOPROLOL TAR 25 MG TAB PO SCH ×2 (05:10→17:24)
[2022-10-24 05:27] LABS: Albumin 2.6 g/dL (3.4-5.0); Magnesium 2.2 mg/dL (1.6-2.4); Potassium 3.3 mEq/L (3.5-5.1); Prealbumin 16.3 mg/dL (20-40)
[2022-10-24] MEDS: INSULIN -REGULAR HUMAN 50 UNIT/0.5 ML ML SQ SCH ×4 (06:53→20:18)
[2022-10-24] MEDS: AMLODIPINE 5 MG TAB PO SCH ×2 (08:00→20:17)
[2022-10-24] MEDS: GLUCERNA SHAKE 237 ML CAN PO SCH ×2 (08:00→20:18)
[2022-10-24] MEDS: MYRBETRIQ 50 MG PO SCH (08:00)
[2022-10-24] MEDS: VITAMIN B COMPLEX 1 CAP PO SCH (08:33)
[2022-10-24] MEDS: PANTOPRAZOLE 40MG TABLET PO SCH (08:34)
[2022-10-24] MEDS: FE SULF/FA/VIT B COMP & C TAB PO SCH (08:34)
[2022-10-24] MEDS: LACTOBACILLUS/ACIDOPHILUS TAB PO SCH (08:34)
[2022-10-24] MEDS: FOLIC ACID 1 MG TABLET PO SCH (08:35)
[2022-10-24] MEDS: FERROUS SULFATE 325 MG TAB PO SCH (08:35)
[2022-10-24] MEDS: BUSPIRONE HCL 5 MG TABLET PO SCH ×4 (08:38→20:17)
[2022-10-24] MEDS: LIDOCAINE 4% PATCH TOP SCH (08:38)
[2022-10-24] MEDS: CARBIDOPA/LEVODOPA 25/100 TAB PO SCH ×2 (08:38→20:17)
[2022-10-24] MEDS: DULOXETINE 30 MG CAP PO SCH (08:38)
[2022-10-24] MEDS: APIXABAN 5 MG TABLET PO SCH ×2 (08:38→20:17)
[2022-10-24] MEDS: CEFTRIAXONE 1,000 MG in NA CHLORIDE 0.9% 50 ML IVPB SCH (09:25)
[2022-10-24] MEDS: RESTASIS OPTHALMIC OPTH SCH ×2 (09:26→20:18)
[2022-10-24] MEDS: GABAPENTIN 400 MG CAP PO SCH ×2 (09:26→20:16)
[2022-10-24] MEDS: SODIUM CHLORIDE 0.9% 10ML INJ IV SCH ×2 (09:35→20:19)
[2022-10-24] MEDS: ATORVASTATIN 10 MG TAB PO SCH (20:16)
[2022-10-24] MEDS: DONEPEZIL HCL 5 MG TAB PO SCH (20:17)
[2022-10-24] MEDS: TRAZODONE 50 MG TABLET PO SCH (20:18)
[2022-10-24] MEDS: FLONASE NAS SCH (20:18)
[2022-10-25] MEDS: ALBUTEROL 2.5 MG/3 ML NEB SOL NEB SCH ×4 (01:52→21:00)
[2022-10-25] MEDS: OXYCODONE HCL 5 MG TAB PO PRN (04:24)
[2022-10-25] MEDS: METOPROLOL TAR 25 MG TAB PO SCH ×2 (05:04→17:11)
[2022-10-25] MEDS: INSULIN -REGULAR HUMAN 50 UNIT/0.5 ML ML SQ SCH ×4 (06:47→20:36)
[2022-10-25] MEDS: PANTOPRAZOLE 40MG TABLET PO SCH (07:35)
[2022-10-25] MEDS: CEFTRIAXONE 1,000 MG in NA CHLORIDE 0.9% 50 ML IVPB SCH (07:36)
[2022-10-25] MEDS: AMLODIPINE 5 MG TAB PO SCH ×2 (08:00→20:34)
[2022-10-25] MEDS: MYRBETRIQ 50 MG PO SCH (08:00)
[2022-10-25] MEDS: GLUCERNA SHAKE 237 ML CAN PO SCH ×3 (08:00→20:34)
[2022-10-25] MEDS: FERROUS SULFATE 325 MG TAB PO SCH (08:07)
[2022-10-25] MEDS: FE SULF/FA/VIT B COMP & C TAB PO SCH (08:07)
[2022-10-25] MEDS: APIXABAN 5 MG TABLET PO SCH ×2 (08:07→20:33)
[2022-10-25] MEDS: VITAMIN B COMPLEX 1 CAP PO SCH (08:08)
[2022-10-25] MEDS: GABAPENTIN 400 MG CAP PO SCH ×2 (08:08→20:34)
[2022-10-25] MEDS: LACTOBACILLUS/ACIDOPHILUS TAB PO SCH (08:08)
[2022-10-25] MEDS: FOLIC ACID 1 MG TABLET PO SCH (08:08)
[2022-10-25] MEDS: CARBIDOPA/LEVODOPA 25/100 TAB PO SCH ×2 (08:08→20:35)
[2022-10-25] MEDS: BUSPIRONE HCL 5 MG TABLET PO SCH ×4 (08:08→20:35)
[2022-10-25] MEDS: DULOXETINE 30 MG CAP PO SCH (08:09)
[2022-10-25] MEDS: LIDOCAINE 4% PATCH TOP SCH (08:10)
[2022-10-25] MEDS: RESTASIS OPTHALMIC OPTH SCH ×2 (08:11→20:37)
[2022-10-25] MEDS: SODIUM CHLORIDE 0.9% 10ML INJ IV SCH ×2 (09:43→20:00)
[2022-10-25] MEDS ORDERED: POTASSIUM CL SA 10 MEQ TAB PO ONE (09:47)
--- NOTE | 2022-10-25 13:21 | P.RH.PN ---
Estimated Length of Stay: 12 Expected Discharge Date: 11/02/22 Discharge Disposition Plan: Home Family Support: Yes Long-Term Goal: Mobility, Transfers, Self Care Vital Signs: Last Vital Signs Temp 96.7 F L 10/25/22 07:30 Pulse 78 10/25/22 08:00 Resp 16 10/25/22 07:30 BP 100/60 10/25/22 08:00 Pulse Ox 100 10/25/22 07:30 Laboratory: Laboratory Last Values WBC 8.30 thou/uL (4.3-10.9) 10/24/22 03:45 RBC 3.48 M/uL (3.86-4.86) L 10/24/22 03:45 Hgb 10.1 g/dL (12.0-15.0) L 10/24/22 03:45 Hct 31.0 % (36.0-45.0) L 10/24/22 03:45 MCV 89.0 fL (80-100) 10/24/22 03:45 MCH 28.9 pg (27.0-35.0) 10/24/22 03:45 MCHC 32.4 g/dL (32.0-36.0) 10/24/22 03:45 RDW 15.9 % (12.1-15.2) H 10/24/22 03:45 Plt Count 179 thou/uL (152-406) 10/24/22 03:45 MPV 10.9 fL (7.6-11.3) 10/24/22 03:45 Neutrophils % 66.3 % (41.7-73.7) 10/24/22 03:45 Lymphocytes % 22.0 % (15.3-44.8) 10/24/22 03:45 Monocytes % 9.4 % (3.3-12.3) 10/24/22 03:45 Eosinophils % 1.3 % (0-4.4) 10/24/22 03:45 Basophils % 1.0 % (0-1.3) 10/24/22 03:45 Absolute Neutrophils 5.5 K/uL (1.8-8.0) 10/24/22 03:45 Absolute Lymphocytes 1.8 K/uL (0.7-4.9) 10/24/22 03:45 Absolute Monocytes 0.8 K/uL (0.1-1.3) 10/24/22 03:45 Absolute Eosinophils 0.1 K/uL (0-0.5) 10/24/22 03:45 Absolute Basophils 0.1 K/uL (0-0.5) 10/24/22 03:45 Sodium 142 mEq/L (136-145) 10/24/22 03:45 Potassium 3.3 mEq/L (3.5-5.1) L 10/24/22 03:45 Chloride 108 mEq/L (98-107) H 10/24/22 03:45 Carbon Dioxide 33 mEq/L (21-32) H 10/24/22 03:45 Anion Gap 4.3 mEq/L (5.0-15.0) L 10/24/22 03:45 BUN 13 mg/dL (7-18) 10/24/22 03:45 Creatinine 0.73 mg/dL (0.55-1.02) 10/24/22 03:45 Est GFR (CKD-EPI) 84 ml/min (=/>90) L 10/24/22 03:45 Glucose 135 mg/dL (74-106) H 10/24/22 03:45 POC Glucose 127 mg/dL (65-120) H 10/25/22 11:41 Calcium 8.5 mg/dL (8.5-10.1) 10/24/22 03:45 Magnesium 2.2 mg/dL (1.6-2.4) 10/24/22 03:45 Albumin 2.6 g/dL (3.4-5.0) L 10/24/22 03:45 Prealbumin 16.3 mg/dL (20-40) L 10/24/22 03:45 Weight: 145 lb Wound Present: No Closed Surgical Incision Present: No Negative Pressure Wound Therapy Present: No Physician Update: Labs reviewed and are stable. Pain is well managed with multiple modalities. 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 Making fair progress with all therapy. May be discharged early next week. Summary: Patient's care plan and half-way goals have been reviewed and revised as necessary. Please see the Rehabilitation Signature page for all necessary signatures.
[2022-10-25] MEDS: IPRATROPIUM BROM 0.5MG/2.5ML NEB PRN (14:31)
[2022-10-25] MEDS: ENSURE CLEAR 200 ML CAN PO SCH ×2 (20:00→20:33)
[2022-10-25] MEDS: TRAZODONE 50 MG TABLET PO SCH (20:35)
[2022-10-25] MEDS: DONEPEZIL HCL 5 MG TAB PO SCH (20:35)
[2022-10-25] MEDS: ATORVASTATIN 10 MG TAB PO SCH (20:36)
[2022-10-25] MEDS: FLONASE NAS SCH (20:38)
[2022-10-25] MEDS: Oxycodone HCl/Acetaminophen 1 TAB TAB PO PRN (20:50)
[2022-10-26] MEDS: ALBUTEROL 2.5 MG/3 ML NEB SOL NEB SCH ×4 (02:00→20:00)
[2022-10-26] MEDS: METOPROLOL TAR 25 MG TAB PO SCH ×2 (05:34→16:51)
[2022-10-26] MEDS: INSULIN -REGULAR HUMAN 50 UNIT/0.5 ML ML SQ SCH ×4 (07:30→20:39)
[2022-10-26] MEDS: LIDOCAINE 4% PATCH TOP SCH (07:47)
[2022-10-26] MEDS: PANTOPRAZOLE 40MG TABLET PO SCH (07:47)
[2022-10-26] MEDS: APIXABAN 5 MG TABLET PO SCH ×2 (07:48→20:12)
[2022-10-26] MEDS: VITAMIN B COMPLEX 1 CAP PO SCH (07:48)
[2022-10-26] MEDS: GABAPENTIN 400 MG CAP PO SCH ×2 (07:48→20:11)
[2022-10-26] MEDS: LACTOBACILLUS/ACIDOPHILUS TAB PO SCH (07:48)
[2022-10-26] MEDS: FERROUS SULFATE 325 MG TAB PO SCH (07:49)
[2022-10-26] MEDS: DULOXETINE 30 MG CAP PO SCH (07:49)
[2022-10-26] MEDS: FE SULF/FA/VIT B COMP & C TAB PO SCH (07:49)
[2022-10-26] MEDS: BUSPIRONE HCL 5 MG TABLET PO SCH ×4 (07:49→20:12)
[2022-10-26] MEDS: POTASSIUM CL SA 10 MEQ TAB PO SCH (07:49)
[2022-10-26] MEDS: CARBIDOPA/LEVODOPA 25/100 TAB PO SCH ×2 (07:49→20:11)
[2022-10-26] MEDS: FOLIC ACID 1 MG TABLET PO SCH (07:49)
[2022-10-26] MEDS: SODIUM CHLORIDE 0.9% 10ML INJ IV SCH ×2 (07:49→20:12)
[2022-10-26] MEDS: RESTASIS OPTHALMIC OPTH SCH ×2 (07:50→20:38)
[2022-10-26] MEDS: MYRBETRIQ 50 MG PO SCH (07:50)
[2022-10-26] MEDS: CEFTRIAXONE 1,000 MG in NA CHLORIDE 0.9% 50 ML IVPB SCH (07:52)
[2022-10-26] MEDS: GLUCERNA SHAKE 237 ML CAN PO SCH ×2 (08:00→20:00)
[2022-10-26] MEDS: ENSURE CLEAR 200 ML CAN PO SCH ×2 (08:00→20:00)
[2022-10-26] MEDS: AMLODIPINE 5 MG TAB PO SCH ×2 (09:30→20:11)
[2022-10-26] MEDS: Oxycodone HCl/Acetaminophen 1 TAB TAB PO PRN ×2 (09:39→20:24)
[2022-10-26] MEDS: TRAZODONE 50 MG TABLET PO SCH (20:10)
[2022-10-26] MEDS: DONEPEZIL HCL 5 MG TAB PO SCH (20:11)
[2022-10-26] MEDS: ATORVASTATIN 10 MG TAB PO SCH (20:12)
[2022-10-26] MEDS: FLONASE NAS SCH (20:38)
[2022-10-27] MEDS: ALBUTEROL 2.5 MG/3 ML NEB SOL NEB SCH ×5 (02:00→22:00)
[2022-10-27] MEDS: METOPROLOL TAR 25 MG TAB PO SCH ×2 (05:34→17:10)
[2022-10-27] MEDS: INSULIN -REGULAR HUMAN 50 UNIT/0.5 ML ML SQ SCH ×4 (07:30→21:00)
[2022-10-27] MEDS: Oxycodone HCl/Acetaminophen 1 TAB TAB PO PRN ×2 (07:33→18:48)
[2022-10-27] MEDS: PANTOPRAZOLE 40MG TABLET PO SCH (07:33)
[2022-10-27] MEDS: RESTASIS OPTHALMIC OPTH SCH ×2 (07:45→20:24)
[2022-10-27] MEDS: LIDOCAINE 4% PATCH TOP SCH (07:45)
[2022-10-27] MEDS: MYRBETRIQ 50 MG PO SCH (07:45)
[2022-10-27] MEDS: GABAPENTIN 400 MG CAP PO SCH ×2 (07:46→20:19)
[2022-10-27] MEDS: AMLODIPINE 5 MG TAB PO SCH ×2 (07:46→20:25)
[2022-10-27] MEDS: DULOXETINE 30 MG CAP PO SCH (07:46)
[2022-10-27] MEDS: LACTOBACILLUS/ACIDOPHILUS TAB PO SCH (07:46)
[2022-10-27] MEDS: VITAMIN B COMPLEX 1 CAP PO SCH (07:46)
[2022-10-27] MEDS: CARBIDOPA/LEVODOPA 25/100 TAB PO SCH ×2 (07:47→20:21)
[2022-10-27] MEDS: BUSPIRONE HCL 5 MG TABLET PO SCH ×4 (07:47→20:21)
[2022-10-27] MEDS: FOLIC ACID 1 MG TABLET PO SCH (07:47)
[2022-10-27] MEDS: POTASSIUM CL SA 10 MEQ TAB PO SCH (07:47)
[2022-10-27] MEDS: FE SULF/FA/VIT B COMP & C TAB PO SCH (07:47)
[2022-10-27] MEDS: FERROUS SULFATE 325 MG TAB PO SCH (07:47)
[2022-10-27] MEDS: APIXABAN 5 MG TABLET PO SCH ×2 (07:47→20:20)
[2022-10-27] MEDS: SODIUM CHLORIDE 0.9% 10ML INJ IV SCH ×2 (07:49→20:21)
[2022-10-27] MEDS: CEFTRIAXONE 1,000 MG in NA CHLORIDE 0.9% 50 ML IVPB SCH (07:49)
[2022-10-27] MEDS: GLUCERNA SHAKE 237 ML CAN PO SCH ×2 (08:00→20:00)
[2022-10-27] MEDS: ENSURE CLEAR 200 ML CAN PO SCH ×2 (08:00→20:00)
--- NOTE | 2022-10-27 18:01 | PN ---
Date of Progress Note: 10/27/2022 Time Of Service: 2:00 p.m. Subjective: Ms. Conrad is doing well. She does have a question about Eliquis going home because of the high cost. She is told she would be on aspirin instead as that is not required. She does not obando ve atrial fibrillation nor ongoing DVT. Otherwise, no other complaints there. Review of Systems: No fevers, chills. No nausea, vomiting. No myalgias, arthralgias, and her confusion is resolving ve ry well. Physical Examination: Vital Signs: Blood pressure 140/59, pulse 56, respiratory rate 16, temperature 97.9, oxygen saturati on 96%. She did have orthostatic blood pressures, which were negative and they were all unremarkable . HEENT: She is normocephalic, atraumatic. Sclerae anicteric. Oropharynx pink and moist. Neck: Supple. Chest: Clear. Heart: Regular. Extremities: Show no significant edema or cyanosis. She does not have focal neurologic deficits. M ild diffuse weakness, which is improving. Laboratory Studies: White blood cell count 8.3, hemoglobin 10.1, platelets 179. Sodium 142; potassi um slightly low 3.3, has been replaced; carbon dioxide 33; BUN 13; creatinine 0.73; glucose ranged fr om 125 to 188; calcium 8.5. Magnesium 2.2. Prealbumin 16.3, albumin 2.6. X-ray/imaging: No new x-ray imaging. Medications: Albuterol nebulizer 2.5 mg every 6 hours, Tylenol 500 mg every 4 hours as needed, Norva sc 5 mg twice daily, Eliquis 5 mg twice daily, Lipitor 10 mg at bedtime, BuSpar 5 mg 4 times daily, S inemet now increased from 25/100 twice daily to 3 times daily. She did mention some mild tremors, wh ich she thinks has worsened slightly in terms of a new complaint. She is also continuing on Rocephin 1 g daily until the , started from 10/22, donepezil 10 mg at bedtime for cognitive dysfunction. Continue Glucerna for poor nutrition and ferrous sulfate for anemia. We will continue on gabapentin 1200 mg twice daily, folic acid 1 mg daily, melatonin 10 mg at bedtime for insomnia along with trazo done, now increased to 150 mg at night. Percocet 5/325 two tabs every 6 hours as needed, Protonix 40 mg twice daily, potassium 10 mEq daily, trazodone again 150 mg twice daily, and vitamin B complex da tootie. Current Functional Status: For bed mobility or stand pivot transfers, done with standby assistance. Toileting done with modified independence. She ambulated 80 feet twice and 60 feet once with a Roll ator and contact guard assistance. She did 15 reps of 2 sets of endurance building, upper and lower body strengthening exercises. Progress Towards Rehabilitation Goals: Ms. Conrad is making good progress towards her goals of becom ing independent with upper and lower body dressing, toileting, transferring, ambulating 250 feet with modified independence and up and down 5 steps with modified independence. Assessments: Ms. Conrad is in the rehabilitation unit with metabolic encephalopathy, which is improv ing very well. She has difficulty with insomnia. Her trazodone is increased. She also has Parkinso n's symptoms. Her Sinemet 25/100 has been increased from twice a day to 3 times daily as she does no te some more tremors in the left side and right. She has also reported some very vivid dreams where she may shout out that may be related to her Parkinson symptoms and Sinemet. She has not had disturb ance thus far, but she may require an antipsychotic that is compatible with Parkinson's if those symp toms continue. She does have GE reflux, dyslipidemia, hypertension, hypokalemia, urinary tract infec tion with diabetes mellitus. Plan: 1.We will continue with all medications as noted above for her comorbid conditions. 2.Continue with physical and occupational therapy for 3 hours a day, 5 of 7 days and trazodone incre ased from 100 at night to 150 at night. 3.Sinemet increased from 25/100 twice daily to 3 times daily and other medications are continued as listed. Comorbidities That Continue To Impact Rehabilitation Process: Given the Parkinson disease and the po tential for hallucinations, paranoid thinking, and delusions. If need be, Nuplazid may be considered if those Parkinson's symptoms worsen . LB/MODL Voice ID: [id number] Report ID: [id number]
[2022-10-27] MEDS: TRAZODONE 50 MG TABLET PO SCH (20:19)
[2022-10-27] MEDS: ATORVASTATIN 10 MG TAB PO SCH (20:20)
[2022-10-27] MEDS: DONEPEZIL HCL 5 MG TAB PO SCH (20:20)
[2022-10-27] MEDS: FLONASE NAS SCH (20:24)
[2022-10-28] MEDS: ALBUTEROL 2.5 MG/3 ML NEB SOL NEB SCH ×3 (02:00→21:20)
[2022-10-28] MEDS: METOPROLOL TAR 25 MG TAB PO SCH ×2 (06:00→17:02)
[2022-10-28] MEDS: Oxycodone HCl/Acetaminophen 1 TAB TAB PO PRN ×2 (07:22→19:24)
[2022-10-28] MEDS: CEFTRIAXONE 1,000 MG in NA CHLORIDE 0.9% 50 ML IVPB SCH (07:25)
[2022-10-28] MEDS: INSULIN -REGULAR HUMAN 50 UNIT/0.5 ML ML SQ SCH ×4 (07:30→20:28)
[2022-10-28] MEDS: IPRATROPIUM BROM 0.5MG/2.5ML NEB PRN ×2 (07:35→13:58)
[2022-10-28] MEDS: LIDOCAINE 4% PATCH TOP SCH (08:00)
[2022-10-28] MEDS: GLUCERNA SHAKE 237 ML CAN PO SCH ×2 (08:00→19:28)
[2022-10-28] MEDS: ENSURE CLEAR 200 ML CAN PO SCH ×2 (08:00→19:28)
[2022-10-28] MEDS: MYRBETRIQ 50 MG PO SCH (08:00)
[2022-10-28] MEDS: SODIUM CHLORIDE 0.9% 10ML INJ IV SCH ×2 (08:00→19:26)
[2022-10-28] MEDS: POTASSIUM CL SA 10 MEQ TAB PO SCH (08:50)
[2022-10-28] MEDS: PANTOPRAZOLE 40MG TABLET PO SCH (08:50)
[2022-10-28] MEDS: CARBIDOPA/LEVODOPA 25/100 TAB PO SCH ×3 (08:50→19:24)
[2022-10-28] MEDS: RESTASIS OPTHALMIC OPTH SCH ×2 (08:50→19:26)
[2022-10-28] MEDS: AMLODIPINE 5 MG TAB PO SCH ×2 (08:58→19:25)
[2022-10-28] MEDS: APIXABAN 5 MG TABLET PO SCH ×2 (09:50→19:24)
[2022-10-28] MEDS: VITAMIN B COMPLEX 1 CAP PO SCH (09:50)
[2022-10-28] MEDS: FOLIC ACID 1 MG TABLET PO SCH (09:50)
[2022-10-28] MEDS: DULOXETINE 30 MG CAP PO SCH (09:50)
[2022-10-28] MEDS: BUSPIRONE HCL 5 MG TABLET PO SCH ×4 (09:50→19:24)
[2022-10-28] MEDS: FE SULF/FA/VIT B COMP & C TAB PO SCH (09:50)
[2022-10-28] MEDS: GABAPENTIN 400 MG CAP PO SCH ×2 (09:50→19:23)
[2022-10-28] MEDS: LACTOBACILLUS/ACIDOPHILUS TAB PO SCH (09:50)
[2022-10-28] MEDS: FERROUS SULFATE 325 MG TAB PO SCH (13:37)
[2022-10-28] MEDS: TRAZODONE 50 MG TABLET PO SCH (19:24)
[2022-10-28] MEDS: DONEPEZIL HCL 5 MG TAB PO SCH (19:25)
[2022-10-28] MEDS: ATORVASTATIN 10 MG TAB PO SCH (19:25)
[2022-10-28] MEDS: FLONASE NAS SCH (19:26)
--- NOTE | 2022-10-29 00:11 | PN ---
Date of Progress Note: 10/28/2022 Time Of Service: 1:00 p.m. Subjective: Ms. Conrad is in the gym, exercises bicycle, doing therapy. She has no new complaints. She is happy about her progress so far. She is more worried about her and how he is doing t carbajal herself. Review of Systems: No fevers, chills, nausea, vomiting, myalgias, arthralgias. No confusion. She has cleared her encep halopathy. Physical Examination: Vital Signs: Blood pressure 125/65, pulse 87, respiratory rate 18, temperature 97.8 oxygen saturatio n 96%. General: Ms. Conrad again is sitting in exercise chair in the gym. HEENT: She is normocephalic, atraumatic. Sclerae anicteric. Oropharynx is moist. Neck: Supple. Chest: Clear. She does have diffuse weakness, but no focal weakness of lower extremities. Laboratory Studies: No new laboratory studies except blood glucose ranged from 121 to 152. X-ray/imaging: No new x-rays or imaging. Medications: Medications have been reviewed and remained unchanged. Current Functional Status: Currently, she ambulated 350 feet and another 250 feet once with a gabriela g walker with standby assistance. She ascended and descended 20 steps using bilateral handrails with standby assistance. Supine sit transfers done independently, sit to stand transfers and stand and p ivot transfers done independently. With occupational therapy, independent with supine to sit at edge of bed. She did ADLs safely. With speech therapy, she worked on improving sustained attention skil ls, alternating attention skills, short-term memory, and oral motor exercises. She can recall 1 set of 5/5 unrelated items after 5 minutes. With delay, with visuals another set of 5/5 unrelated items after 5 minutes. Progress Towards Rehabilitation Goals: Ms. Conrad has made excellent progress towards her goals of b ecoming independent with upper and lower body dressing, transferring, toileting, ambulating 500 feet with modified independence, up and down 25 steps with modified independence performing cognitive func tioning with modified independence. Assessment: Ms. Conrad is a 81-year-old patient in the rehabilitation unit with metabolic encephalop athy, which has resolved. She has Parkinson disease, GE reflux, dyslipidemia, hypertension, hypokale castro, urinary tract infection, diabetes mellitus. Plan: 1.Continue with physical, occupational, and speech therapy for 3.5 hours, 5/7 days. 2.Her comorbid conditions are continued as noted previously unchanged. She is doing well with all o f her comorbid including her Parkinson disease. Treated for urinary tract infection, electrolyte rep laced, and blood pressures is managed. Comorbids That Continue To Impact Rehabilitation Process: At this point, she has no comorbidities th at negatively impact her rehabilitation as she is doing excellent. TERRIE/ARIAN Voice ID: [id number] Report ID: [id number]
[2022-10-29] MEDS: ALBUTEROL 2.5 MG/3 ML NEB SOL NEB SCH ×3 (02:00→14:00)
[2022-10-29] MEDS: METOPROLOL TAR 25 MG TAB PO SCH ×2 (04:48→17:48)
[2022-10-29] MEDS: INSULIN -REGULAR HUMAN 50 UNIT/0.5 ML ML SQ SCH ×4 (06:37→20:35)
[2022-10-29] MEDS: PANTOPRAZOLE 40MG TABLET PO SCH (06:53)
[2022-10-29] MEDS: Oxycodone HCl/Acetaminophen 1 TAB TAB PO PRN ×2 (06:56→19:48)
[2022-10-29] MEDS: GLUCERNA SHAKE 237 ML CAN PO SCH ×2 (08:00→19:48)
[2022-10-29] MEDS: ENSURE CLEAR 200 ML CAN PO SCH (08:00)
[2022-10-29] MEDS: AMLODIPINE 5 MG TAB PO SCH ×2 (08:00→19:47)
[2022-10-29] MEDS: MYRBETRIQ 50 MG PO SCH (08:00)
[2022-10-29] MEDS: FERROUS SULFATE 325 MG TAB PO SCH (08:19)
[2022-10-29] MEDS: GABAPENTIN 400 MG CAP PO SCH ×2 (08:19→19:47)
[2022-10-29] MEDS: LACTOBACILLUS/ACIDOPHILUS TAB PO SCH (08:19)
[2022-10-29] MEDS: BUSPIRONE HCL 5 MG TABLET PO SCH ×4 (08:19→19:47)
[2022-10-29] MEDS: FOLIC ACID 1 MG TABLET PO SCH (08:19)
[2022-10-29] MEDS: APIXABAN 5 MG TABLET PO SCH ×2 (08:19→19:47)
[2022-10-29] MEDS: DULOXETINE 30 MG CAP PO SCH (08:19)
[2022-10-29] MEDS: FE SULF/FA/VIT B COMP & C TAB PO SCH (08:19)
[2022-10-29] MEDS: POTASSIUM CL SA 10 MEQ TAB PO SCH (08:19)
[2022-10-29] MEDS: VITAMIN B COMPLEX 1 CAP PO SCH (08:19)
[2022-10-29] MEDS: CARBIDOPA/LEVODOPA 25/100 TAB PO SCH ×3 (08:20→19:47)
[2022-10-29] MEDS: RESTASIS OPTHALMIC OPTH SCH ×2 (08:54→19:48)
[2022-10-29] MEDS: SODIUM CHLORIDE 0.9% 10ML INJ IV SCH ×2 (08:57→19:49)
[2022-10-29] MEDS: LIDOCAINE 4% PATCH TOP SCH (09:08)
[2022-10-29] MEDS ORDERED: ALBUTEROL 2.5 MG/3 ML NEB SOL NEB PRN (14:00)
[2022-10-29] MEDS: TRAZODONE 50 MG TABLET PO SCH (19:46)
[2022-10-29] MEDS: ATORVASTATIN 10 MG TAB PO SCH (19:47)
[2022-10-29] MEDS: DONEPEZIL HCL 5 MG TAB PO SCH (19:47)
[2022-10-29] MEDS: FLONASE NAS SCH (19:48)
--- NOTE | 2022-10-29 23:05 | PN ---
Date of Progress Note: 10/29/2022 Time Of Service: 1:30 p.m. Subjective: Ms. Conrad is doing well. She has no new complaints. No other issues. She is happy wi th her therapy so far. Review of Systems: No fevers, chills, nausea, vomiting, myalgias, arthralgias, rash, headache, weight change. She is ag ain happy with her therapy so far. Physical Examination: Vital Signs: Blood pressure 118/53, pulse 89, respiratory rate 16, temperature 97.6 oxygen saturatio n 95% on room air. Orthostatics, she did have a drop of 82/60 and pulse of 100 when going eventually from a lying position where blood pressure 140/53, and pulse 77. She is transiently symptomatic. Neuro: Otherwise, on examination, no focal or new deficits. She is clearing very well cognitively. Laboratory Studies: Blood sugars ranged from 121 to 150. X-ray/imaging: No new x-rays or images. Medications: No change and her medications have been reviewed. Current Functional Status: Today, she ambulated 350 feet twice with a rolling walker with standby as sistance. She ascended and descended 20 steps twice with bilateral handrails independently. Supine to sit transfers done independently. Sit to stand transfers and stand and pivot transfers done indep endently. With speech, she required minimum assistance for each of tasks associated with many skills , which include alternating attention, short-term memory, and oral motor strengthening exercises. Wi th occupational therapy, independent with bed mobility from edge of bed to toilet to a Rollator also independent, independent with ambulation to shower and back and forth, independent with toilet hygien e. Progress Towards Rehabilitation Goals: Ms. Conrad has made excellent progress towards her goals of b ecoming independent with upper and lower body dressing, transferring, toileting, showering, and for a mbulating 250 feet independently up and down 25 steps independently and performing cognitive function ing independently. Assessment: Ms. Conrad is a 81-year-old patient in the rehabilitation unit with metabolic encephalop athy, which has resolved very well. She has comorbid Parkinson disease, GE reflux, dyslipidemia, hyp ertension, hypokalemia, urinary tract infection, diabetes mellitus, which are all well managed. Plan: 1.Continue with physical, occupational, and speech therapy for 3.5 hours, 5 of 7 days. 2.Her multiple comorbid conditions are treated as noted above and they are well managed. Comorbids That Continue To Impact Rehabilitation: At this point, no comorbid conditions negatively i mpact rehabilitation and she is ready for discharge home soon. She will continue therapy via [facility]. TERRIE/ARIAN Voice ID: [id number] Report ID: [id number]
[2022-10-30] MEDS: METOPROLOL TAR 25 MG TAB PO SCH ×2 (05:05→17:03)
[2022-10-30] MEDS: PANTOPRAZOLE 40MG TABLET PO SCH (07:02)
[2022-10-30] MEDS: DULOXETINE 30 MG CAP PO SCH (07:09)
[2022-10-30] MEDS: LIDOCAINE 4% PATCH TOP SCH (07:09)
[2022-10-30] MEDS: Oxycodone HCl/Acetaminophen 1 TAB TAB PO PRN ×2 (07:11→18:44)
[2022-10-30] MEDS: FOLIC ACID 1 MG TABLET PO SCH (07:13)
[2022-10-30] MEDS: APIXABAN 5 MG TABLET PO SCH ×2 (07:14→19:04)
[2022-10-30] MEDS: CARBIDOPA/LEVODOPA 25/100 TAB PO SCH ×3 (07:14→19:05)
[2022-10-30] MEDS: BUSPIRONE HCL 5 MG TABLET PO SCH ×4 (07:14→19:04)
[2022-10-30] MEDS: INSULIN -REGULAR HUMAN 50 UNIT/0.5 ML ML SQ SCH ×4 (07:20→20:09)
[2022-10-30] MEDS: VITAMIN B COMPLEX 1 CAP PO SCH (07:51)
[2022-10-30] MEDS: FE SULF/FA/VIT B COMP & C TAB PO SCH (07:51)
[2022-10-30] MEDS: POTASSIUM CL SA 10 MEQ TAB PO SCH (07:51)
[2022-10-30] MEDS: GLUCERNA SHAKE 237 ML CAN PO SCH ×2 (07:51→19:05)
[2022-10-30] MEDS: LACTOBACILLUS/ACIDOPHILUS TAB PO SCH (07:51)
[2022-10-30] MEDS: FERROUS SULFATE 325 MG TAB PO SCH (07:51)
[2022-10-30] MEDS: RESTASIS OPTHALMIC OPTH SCH ×2 (07:52→19:09)
[2022-10-30] MEDS: MYRBETRIQ 50 MG PO SCH (07:52)
[2022-10-30] MEDS: AMLODIPINE 5 MG TAB PO SCH ×2 (07:53→19:11)
[2022-10-30] MEDS: GABAPENTIN 400 MG CAP PO SCH ×2 (08:32→19:04)
[2022-10-30] MEDS: SODIUM CHLORIDE 0.9% 10ML INJ IV SCH ×2 (08:35→19:10)
[2022-10-30] MEDS: DONEPEZIL HCL 5 MG TAB PO SCH (19:04)
[2022-10-30] MEDS: ATORVASTATIN 10 MG TAB PO SCH (19:04)
[2022-10-30] MEDS: TRAZODONE 50 MG TABLET PO SCH (19:04)
[2022-10-30] MEDS: FLONASE NAS SCH (19:09)
[2022-10-30 19:37] LABS: Absolute Lymphocytes (CBC) 1.5 K/uL (0.7-4.9); Lymphocytes % 18.9 % (15.3-44.8); MCV 89.1 fL (80-100); MPV 10.8 fL (7.6-11.3); RBC Red Blood Cell Count 3.48 M/uL (3.86-4.86)
[2022-10-30 19:47] LABS: Potassium 3.7 mEq/L (3.5-5.1)
[2022-10-31] MEDS: METOPROLOL TAR 25 MG TAB PO SCH (05:01)
[2022-10-31] MEDS: PANTOPRAZOLE 40MG TABLET PO SCH (06:26)
[2022-10-31] MEDS: INSULIN -REGULAR HUMAN 50 UNIT/0.5 ML ML SQ SCH (06:29)
[2022-10-31 06:43] VITALS: TEMP 97.1
[2022-10-31] MEDS: Oxycodone HCl/Acetaminophen 1 TAB TAB PO PRN (06:57)
[2022-10-31] MEDS: RESTASIS OPTHALMIC OPTH SCH (07:30)
[2022-10-31] MEDS: LIDOCAINE 4% PATCH TOP SCH (07:31)
[2022-10-31] MEDS: VITAMIN B COMPLEX 1 CAP PO SCH (07:54)
[2022-10-31] MEDS: DULOXETINE 30 MG CAP PO SCH (07:54)
[2022-10-31] MEDS: APIXABAN 5 MG TABLET PO SCH (07:55)
[2022-10-31] MEDS: LACTOBACILLUS/ACIDOPHILUS TAB PO SCH (07:55)
[2022-10-31] MEDS: CARBIDOPA/LEVODOPA 25/100 TAB PO SCH (07:55)
[2022-10-31] MEDS: FE SULF/FA/VIT B COMP & C TAB PO SCH (07:55)
[2022-10-31] MEDS: FERROUS SULFATE 325 MG TAB PO SCH (07:55)
[2022-10-31] MEDS: POTASSIUM CL SA 10 MEQ TAB PO SCH (07:56)
[2022-10-31] MEDS: FOLIC ACID 1 MG TABLET PO SCH (07:56)
[2022-10-31] MEDS: GABAPENTIN 400 MG CAP PO SCH (07:56)
[2022-10-31] MEDS: AMLODIPINE 5 MG TAB PO SCH (07:57)
[2022-10-31 07:58] VITALS: BP 104/51
[2022-10-31] MEDS: MYRBETRIQ 50 MG PO SCH (07:58)
[2022-10-31] MEDS: GLUCERNA SHAKE 237 ML CAN PO SCH (07:58)
[2022-10-31] MEDS: SODIUM CHLORIDE 0.9% 10ML INJ IV SCH (07:59)
[2022-10-31] MEDS: BUSPIRONE HCL 5 MG TABLET PO SCH (08:32)
== END 2022-10-31 10:45 | disposition home health service (06) | DRG 71 ==
LOC: 5TH 10-22 14:20
PROVIDERS: ADMIT Psychiatry & Neurology Neurology with Special Qualifications in Child Neurology; ATTEND Psychiatry & Neurology Neurology with Special Qualifications in Child Neurology
DX: G93.41 Metabolic encephalopathy (principal); N39.0 Urinary tract infection, site not specified; E11.9 Type 2 diabetes mellitus without complications; R53.81 Other malaise; F41.9 Anxiety disorder, unspecified; J44.9 Chronic obstructive pulmonary disease, unspecified; K21.9 Gastro-esophageal reflux disease without esophagitis; I10 Essential (primary) hypertension; E78.5 Hyperlipidemia, unspecified; M19.90 Unspecified osteoarthritis, unspecified site; I48.91 Unspecified atrial fibrillation; E87.6 Hypokalemia; G20 Parkinson's disease; G47.00 Insomnia, unspecified
CPT/HCPCS: 36415; 80048; 82040; 82947; 83735; 84134; 85025; 92523; 94640; 97110; 97116; 97124; 97129; 97162; 97165; 97530; J0696; J1815; J2001; J7613; J7644

== ENCOUNTER 2022-11-22 07:57 | Day surgery (SDC) | payer OTHER, BC ==
[2022-11-22] MEDS ORDERED: ACETAMINOPHEN 500 MG TAB ONE (08:23)
[2022-11-22] MEDS ORDERED: DIPHENHYDRAMINE 25 MG TAB/CAP ONE (08:24)
[2022-11-22] MEDS ORDERED: INFLIXIMAB-ABDA 700 MG in NA CHLORIDE 0.9% 250 ML IV ONE (09:00)
[2022-11-22 13:51] VITALS: BMI 25.8
[2022-11-22 14:09] VITALS: BP 153/47; O2SAT 96
[2022-11-22 14:12] VITALS: TEMP 97
== END 2022-11-22 11:46 | disposition home or self-care (01) ==
LOC: DS 07:57
PROVIDERS: ATTEND Internal Medicine Gastroenterology
DX: K50.10 Crohn's disease of large intestine without complications (principal)
CPT/HCPCS: 96365; 96366; Q5104; J7050

== ENCOUNTER 2023-01-22 08:49 | Day surgery (SDC) | payer OTHER, BC ==
[2023-01-22] MEDS ORDERED: DIPHENHYDRAMINE 25 MG TAB/CAP ONE (09:26)
[2023-01-22] MEDS ORDERED: ACETAMINOPHEN 500 MG TAB ONE (09:27)
[2023-01-22] MEDS ORDERED: INFLIXIMAB-ABDA 700 MG in NA CHLORIDE 0.9% 250 ML IV ONE (09:30)
[2023-01-22 11:41] VITALS: BMI 23.2
[2023-01-22 11:49] VITALS: BP 138/95; TEMP 98.3; O2SAT 98
== END 2023-01-22 11:47 | disposition home or self-care (01) ==
LOC: DS 08:49
PROVIDERS: ATTEND Internal Medicine Gastroenterology
DX: K50.10 Crohn's disease of large intestine without complications (principal)
CPT/HCPCS: 96365; 96366; J7050; Q5104

== ENCOUNTER 2023-01-24 10:34 | Day surgery (SDC) | payer OTHER, BC ==
[2023-01-24] MEDS ORDERED: LIDOCAINE 2% VISCOUS ORAL 20 ML, SIMPLE SYRUP 20 ML MM ONE ×2 (10:35)
[2023-01-24] MEDS ORDERED: NA CHLORIDE 0.9% 500 ML ONE (11:49)
[2023-01-24] MEDS ORDERED: MIDAZOLAM HCL 5 ML ONE (12:21)
[2023-01-24] MEDS ORDERED: HYDRALAZINE HCL 20 MG/ML VIAL ONE (12:21)
[2023-01-24] MEDS ORDERED: MIDAZOLAM HCL 2 MG/2 ML INJ ONE (12:21)
[2023-01-24] MEDS ORDERED: ATROPINE SULF 1 MG/10 ML SYR IV ONE (12:22)
[2023-01-24] MEDS ORDERED: METOPROLOL TARTRATE 5 MG/5 ML INJ IV ONE (12:22)
[2023-01-24] MEDS ORDERED: FLUMAZENIL 0.1 MG/ML (5 mL VIAL) IV ONE (12:22)
--- NOTE | 2023-01-24 13:56 | TEE ---
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 TRANSESOPHAGEAL ECHOCARDIOGRAM PROBE INSERTED, NO DIFFICULTY 2. WATCHMAN IS SEATED WELL, NO THROMBUS AND NO LEAK 3. NORMAL LEFT VENTRICULAR EJECTION FRACTION 55-60% TECHNOLOGIST: KYMBERLY LINDSEY
[2023-01-24 14:00] VITALS: TEMP 98
[2023-01-24 14:03] VITALS: O2SAT 100
[2023-01-24 14:35] VITALS: BP 130/55
--- NOTE | 2023-01-24 22:41 | OP ---
Date of Procedure: 01/24/2023 Surgeon: PERLA HOUSTON Procedure Performed: Transesophageal echocardiogram. Indication: Atrial fibrillation status post Watchman implantation. Description Of Procedure: After risks, benefits, and alternatives were explained, patient agreed to procedure and signed informed consent. Patient was brought into the PACU area. After proper time-ou t, the back of throat was numbed using viscous lidocaine and then gave 3 mg of Versed and then CORA pr obe was inserted without difficulties and Watchman was seated well. No thrombus or other leak was fo und. T probe was removed. The patient was sent to recovery in stable condition. Conclusion: Successful CORA with Watchman seated well. Plan: Discontinue Eliquis. SR/MODL Voice ID: [id number] Report ID: [id number]
== END 2023-01-24 14:45 | disposition home or self-care (01) ==
LOC: EKG 10:34
PROVIDERS: ATTEND Internal Medicine
DX: I48.91 Unspecified atrial fibrillation (principal); Z98.890 Other specified postprocedural states; I10 Essential (primary) hypertension; E78.5 Hyperlipidemia, unspecified; Z87.891 Personal history of nicotine dependence; Z79.82 Long term (current) use of aspirin; Z79.899 Other long term (current) drug therapy
CPT/HCPCS: 93312; J0360; J0461; J2250; J7040

== ENCOUNTER 2023-04-03 09:47 | Day surgery (SDC) | payer OTHER, BC ==
[2023-04-03] MEDS ORDERED: INFLIXIMAB-ABDA 700 MG in NA CHLORIDE 0.9% 250 ML IV ONE (10:00)
[2023-04-03] MEDS ORDERED: ACETAMINOPHEN 500 MG TAB ONE (10:01)
[2023-04-03] MEDS ORDERED: DIPHENHYDRAMINE 25 MG TAB/CAP ONE (10:01)
[2023-04-03] MEDS ORDERED: NA CHLORIDE 0.9% 250 ML ONE (10:35)
[2023-04-03 11:21] VITALS: BMI 22.1
[2023-04-03 13:17] VITALS: BP 135/65; TEMP 98.3; O2SAT 97
== END 2023-04-03 13:07 | disposition home or self-care (01) ==
LOC: DS 09:47
PROVIDERS: ATTEND Internal Medicine Gastroenterology
DX: K50.10 Crohn's disease of large intestine without complications (principal)
CPT/HCPCS: 96365; 96366; Q5104; J7050 ×2

== ENCOUNTER 2023-06-05 10:25 | Day surgery (SDC) | payer OTHER, BC ==
[2023-06-05] MEDS ORDERED: INFLIXIMAB IV ONE (10:45)
[2023-06-05] MEDS: ACETAMINOPHEN 500 MG TAB ONE (10:45)
[2023-06-05] MEDS: DIPHENHYDRAMINE 25 MG TAB/CAP ONE (10:45)
[2023-06-05] MEDS ORDERED: NA CHLORIDE 0.9% IV ONE (10:45)
[2023-06-05] MEDS ORDERED: NA CHLORIDE 0.9% 100 ML ONE (10:51)
[2023-06-05 13:49] VITALS: BP 106/47; TEMP 97.5; O2SAT 99; BMI 21.0
== END 2023-06-05 13:10 | disposition home or self-care (01) ==
LOC: DS 10:25
PROVIDERS: ATTEND Internal Medicine Gastroenterology
DX: K50.10 Crohn's disease of large intestine without complications (principal)
CPT/HCPCS: 96365; 96366; J1745; J7050

== ENCOUNTER 2023-08-25 10:31 | Day surgery (SDC) | payer OTHER, BC ==
[2023-08-25] MEDS: NA CHLORIDE 0.9% 250 ML ONE (10:53)
[2023-08-25] MEDS: ACETAMINOPHEN 500 MG TAB ONE (10:53)
[2023-08-25] MEDS: DIPHENHYDRAMINE 25 MG TAB/CAP ONE (10:53)
[2023-08-25 11:23] VITALS: BMI 19.1
[2023-08-25] MEDS: INFLIXIMAB-ABDA 700 MG in NA CHLORIDE 0.9% 250 ML IV ONE (11:32)
[2023-08-25 14:13] VITALS: BP 131/65; TEMP 98.3; O2SAT 100
== END 2023-08-25 14:15 | disposition home or self-care (01) ==
LOC: DS 10:31
PROVIDERS: ATTEND Internal Medicine Gastroenterology
DX: K50.10 Crohn's disease of large intestine without complications (principal)
CPT/HCPCS: 96365; 96366; Q5104; J7050 ×2

== ENCOUNTER 2024-02-12 15:43 | Inpatient (IN) | payer OTHER, BC ==
[2024-02-12] MEDS ORDERED: NA CHLORIDE 0.9% 500 ML ONE (16:14)
[2024-02-12 16:50] LABS: Absolute Lymphocytes (CBC) 1.2 K/uL (0.7-4.9); Absolute Monocytes 0.5 K/uL (0.1-1.3); Absolute Neutrophil 7.3 K/uL (1.8-8.0); Basophils % 0.4 % (0-1.3); Eosinophils % 0.3 % (0-4.4); Hematocrit 37.6 % (36.0-45.0); Hemoglobin 12.3 g/dL (12.0-15.0); Lymphocytes % 13.6 % (15.3-44.8); MCH 32.3 pg (27.0-35.0); MCHC 32.6 g/dL (32.0-36.0); MCV 98.9 fL (80-100); Monocytes % 5.5 % (3.3-12.3); Neutrophils % 80.2 % (41.7-73.7); Platelets 326 thou/uL (152-406); Red Cell Distribution Width 14.2 % (12.1-15.2)
[2024-02-12 16:59] LABS: AST/SGOT 15 U/L (15-37); Albumin 1.6 g/dL (3.4-5.0); Albumin/Globulin Ratio 0.5 (1.1-1.8); Alkaline Phosphatase 60 U/L (45-117); Anion Gap 9.4 mEq/L (5.0-15.0); BUN Blood Urea Nitrogen 18 mg/dL (7-18); Bicarbonate 30 mEq/L (21-32); Bilirubin Total 0.6 mg/dL (0.2-1.0); Creatine Phosphokinase 19 U/L (26-192); Globulin 3.2 g/dL (2.3-3.5); Glomerular Filtration Rate 93 ml/min (=/>90); Glucose Level 82 mg/dL (74-106); Lipase 10 U/L (13-75); Magnesium 1.7 mg/dL (1.6-2.4); Potassium 4.4 mEq/L (3.5-5.1); Protein, Total 4.8 g/dL (6.4-8.2); Sodium Level 137 mEq/L (136-145)
[2024-02-12 17:18] LABS: ALT/SGPT < 14 U/L (13-56)
[2024-02-12] MEDS ORDERED: VANCOMYCIN 1 GM/VIAL ONE (17:48)
[2024-02-12] MEDS ORDERED: NA CHLORIDE 0.9% 100 ML ONE (17:49)
[2024-02-12] MEDS ORDERED: ALBUMIN HUMAN 25% 100 ML IV ONE (17:49)
[2024-02-12] MEDS ORDERED: CALCIUM GLUCONATE 1 GM IVPB 1 GM/50 ML BAG IV ONE (17:50)
[2024-02-12 18:17] LABS: Specific Gravity 1.028 (1.005-1.030); Sqamous Epithelial <5 /HPF (None Seen); Urine Bacteria <20 /HPF (<20); Urine Bilirubin NEGATIVE (Negative); Urine Blood 1+ (Negative); Urine Clarity Clear (Clear); Urine Color Yellow (Yellow); Urine Culture Reflex Order NOT NEEDED; Urine Glucose NEGATIVE (Negative); Urine Ketones 1+ (Negative); Urine Microscopic Reflex YN ORDER UMIC; Urine Mucus Slight /HPF (None Seen); Urine Nitrite NEGATIVE (Negative); Urine Protein 1+ (Negative); Urine RBC 21-50 /HPF (None Seen); Urine Urobilinogen Normal (Normal); Urine WBC <5 /HPF (<5)
--- NOTE | 2024-02-12 18:44 | RAD REPORT ---
EXAMINATION: CT ABDOMEN AND PELVIS WITH CONTRAST CLINICAL INDICATION: Abdominal pain. Sacral decubitus ulcer TECHNIQUE: CT abdomen and pelvis was performed, after the administration of 100 cc Isovue-300.. Sagit pelon and coronal reconstructions were obtained. One or more of the following dose reduction techniques were used: Automated exposure control, adjustment of the mA and kV according to patient si ze, and iterative reconstruction. Unless otherwise specified, incidental findings do not require dedicated imaging follow-up. [id number]. Oral contrast was not given which limits evaluation of bowel and appendix. COMPARISON: October 2023 FINDINGS: Small bilateral pleural effusions. Diffuse edema within the subcutaneous tissues. Small hepatic cysts. Spleen is unremarkable. The pancreas is atrophic. Cholecystectomy. Mild prominence of the biliary tree. Left renal cyst. Right kidney unremarkable is unremarkable A neuro stimulator device in place. A large amount of stools present throughout the colon. No evidence of diverticulitis. No adnexal mass. Ulceration involves the soft tissue posterior pelvis. No underlying bony destruction seen. Liver, spleen, pancreas, adrenals and kidneys appear unremarkable : IMPRESSION: Mild prominence of the biliary tree presumably physiologic in this elderly patient status post cholec ystectomy. This should be correlated clinically and with appropriate lab values. Large amount of stool throughout colon.. Ulceration involves the soft tissue posterior pelvis. No underlying bony destruction seen.
--- NOTE | 2024-02-12 18:53 | ER ---
Nurse's Notes [facility] Name: Maricruz Conrad Age: 83 yrs Sex: Female : 1940 Arrival Date: 02/12/2024 Time: 15:43 Bed 14 Private MD: Diagnosis: Decubitus Ulcer Presentation: 02/11 15:52 Chief complaint: EMS states: Generalized weakness for several days, pt has sores to rs5 buttocks and back of heels bilat, is currently on abx for them. Coronavirus screen: At this time, the client does not indicate any symptoms associated with coronavirus-19. Coronavirus screen: At this time, the client does not indicate any symptoms associated with coronavirus-19. Ebola Screen: No symptoms or risks identified at this time. Initial Sepsis Screen: Does the patient meet any 2 criteria? No. Patient's initial sepsis screen is negative. Does the patient have a suspected source of infection? No. Patient's initial sepsis screen is negative. Risk Assessment: Do you want to hurt yourself or someone else? Patient reports no desire to harm self or others. Onset of symptoms was February 12, 2024. 15:52 Method Of Arrival: EMS: [facility] rs5 15:52 Acuity: EMILY 3 rs5 16:01 Care prior to arrival: IV initiated. 20 GA, in the left forearm. rs5 Historical: - Allergies: 15:54 No Known Allergies; rs5 - PMHx: 15:54 Anxiety; COPD; Diabetes - IDDM; GERD; High Cholesterol; Hypertension; rs5 - PSHx: 15:54 Stomach bypass; Cholecystectomy; rs5 - Immunization history:: Adult Immunizations up to date. - Infectious Disease History:: Denies. - Social history:: Smoking status: Patient denies any tobacco usage or history of. - Family history:: not pertinent. - Hospitalizations: : No recent hospitalization is reported. Screenin:01 [facility] ED Fall Risk Assessment (Adult) History of falling in the last 3 months, rs5 including since admission Yes- single mechanical fall (1 pt) Confusion or Disorientation No (0 pts) Intoxicated or Sedated No (0 pts) Impaired Gait Yes (1 pt) Mobility Assist Device Used Yes (1 pt) Altered Elimination No (0 pt) Score/Fall Risk Level 3 or more points = High Risk Oriented to surroundings, Maintained a safe environment, Educated pt \\T\\ family on fall prevention, incl call for assistance when getting out of bed. Abuse screen: Denies threats or abuse. Nutritional screening: No deficits noted. Tuberculosis screening: No symptoms or risk factors identified. Assessment: 16:01 General: Appears in no apparent distress. uncomfortable, Behavior is calm, cooperative. rs5 Pain: Denies pain. Neuro: Level of Consciousness is awake, alert, obeys commands, Oriented to person, place, time, situation. Cardiovascular: Patient's skin is warm and dry. Respiratory: Airway is patent Respiratory effort is even, unlabored, Respiratory pattern is regular, symmetrical. GI: Abdomen is round non-distended, Abd is soft and non tender X 4 quads. : No signs and/or symptoms were reported regarding the genitourinary system. EENT: No signs and/or symptoms were reported regarding the EENT system. Derm: Skin is intact, Skin is pink, warm \\T\\ dry. Musculoskeletal: Range of motion: intact in all extremities, Reports generalized weakness. 17:10 Reassessment: Patient and/or family updated on plan of care and expected duration. Pain rs5 level reassessed. Patient is alert, oriented x 3, equal unlabored respirations, skin warm/dry/pink. 18:05 Reassessment: Pt cleaned of urinary incontinence, clean brief applied. . aa5 Vital Signs: 15:52 BP 101 / 55; Pulse 82; Resp 17; Temp 98(O); Pulse Ox 99% on R/A; rs5 19:01 BP 107 / 62; Pulse 80; Resp 17; Pulse Ox 99% on R/A; rs5 20:00 BP 111 / 69; Pulse 90; Resp 18; Pulse Ox 100% ; kj2 22:02 BP 109 / 65; Pulse 73; Resp 18; Temp 98.2; Pulse Ox 100% ; kj2 ED Course: 15:51 Patient arrived in ED. aa5 15:51 Leighton Lorenzo MD is Attending Physician. rn 15:52 Dwayne Ellis, RICKI is Primary Nurse. rs5 15:54 Triage completed. rs5 16:01 No provider procedures requiring assistance completed. rs5 16:01 Patient has correct armband on for positive identification. Placed in gown. Bed in low rs5 position. Call light in reach. Side rails up X2. 16:30 Inserted saline lock: 24 gauge in right wrist, using aseptic technique. rs5 17:55 Attending Physician role handed off by Leighton Lorenzo MD ec2 17:55 Manohar Joshi MD is Attending Physician. ec2 18:03 Straight cath inserted, using sterile technique, 16 Fr. Specimen obtained. Patient aa5 tolerated well. 18:26 CT Abd/Pelvis - IV Contrast Only In Process Unspecified. EDMS 18:53 Jose Guillen MD is Hospitalizing Provider. ec2 19:08 1908 CM met with , her son Cody and her son in law Pennington at the bedside ane in the ED exam room. Patient identified by name and . Demographic sheet confirmed. Patient states she lives alone in a single story home. Typically she uses a walker to perform ADLs independently, however, just in the last weak, she has experienced increased weakness. She sates she used a wheelchair for the first time yesterday and has been lying in bed without getting up much. Patient reports she has a motion and time study teacher private pay caregiver that stays with her during the day 5 days a week assisting with ADLs. DME in the home includes a walker, wheelchair, CPAP (patient states she does not use it), shower chair and device "similar to tens units for back pain" No home oxygen. Patient reports she has HH services through [facility], with nurse visits twice a week for wound care. MPOA is in place and patient also reports she is in the process of obtaining a DNR. PCP is [facility]. Preferred plan is to return home upon discharge and continue with [facility] HH. Both Cody and [place] states that one of them will transport her home. CM team will continue to follow and coordinate care during this hospital stay. 21:04 Blood Culture Adult (2): obtain before abx Sent. kj2 22:36 Repositioned patient. Cleaned of incontinence. kj2 23:10 Patient notified of wait time. kj2 23:11 Patient admitted, IV remains in place. kj2 23:11 Provided Education on: reason for admit. kj2 Administered Medications: 16:16 Drug: NS 0.9% IV 500 ml 500 ml IV at 1 bolus once; to be given as a bolus over 30 rs5 minutes Volume: 500 ml; Route: IV; Rate: 1 bolus; Site: right antecubital; 19:05 Follow up: IV Status: Completed infusion; IV Intake: 500ml kj2 18:00 Drug: Calcium Gluconate IVPB 1 grams IVPB once over 60 mins; (mix in NS 100 mL) Route: rs5 IVPB; Infused Over: 60 mins; Site: right wrist; 21:03 Follow up: Response: No adverse reaction; IV Status: Completed infusion; IV Intake: kj2 100ml 18:20 Drug: vancoMYCIN IVPB 1 grams IVPB once over 2 hrs Route: IVPB; Infused Over: 2 hrs; rs5 Site: left forearm; 20:20 Follow up: IV Status: Completed infusion; IV Intake: 100ml kj2 19:30 Drug: Albumin IVPB 25 grams 100 ml IVPB once; (Note: Albumin 25% concentration) Volume: kj2 100 ml; Route: IVPB; Site: left forearm; 21:01 Follow up: IV Status: Completed infusion; IV Intake: 100ml kj2 Medication: 19:02 VIS not applicable for this client. rs5 Intake: 19:05 IV: 500ml; Total: 500ml. kj2 20:20 IV: 100ml; Total: 600ml. kj2 21:01 IV: 100ml; Total: 700ml. kj2 21:03 IV: 100ml; Total: 800ml. kj2 Outcome: 18:53 Decision to Hospitalize by Provider. ec2 23:11 Admitted to Med/surg accompanied by tech, via stretcher, room 212, kj2 23:11 Condition: stable 23:11 Instructed on the need for admit, 23:11 Patient left the ED. kj2 Signatures: Dispatcher [employer] Leighton Grande MD MD rn Calderon, Audri, RN RN aa5 Dwayne Ellis RN RN rs5 Manohar Joshi MD MD ec2 Rosanna Bowers RN RN kj2 Jacki Espinal RN RN ane
--- NOTE | 2024-02-12 18:53 | EDPHYS ---
Physician Documentation [facility] Name: Maricruz Conrda Age: 83 yrs Sex: Female : 1940 Arrival Date: 02/12/2024 Time: 15:43 Bed 14 Private MD: ED Physician Manohar Joshi HPI: 02/11 16:11 This 83 yrs old Female presents to ER via EMS with complaints of General Weakness. rn 16:11 Patient reports generalized weakness for the last week or 2. Reports no appetite and rn has not been eating or drinking. Denies fever or chills. No vomiting or diarrhea or blood in stool. Patient reports unable to transfer or stand and has been requiring multiple helpers at home to help her. No recent trauma.. Onset: The symptoms/episode began/occurred 2 week(s) ago. Severity of symptoms: At their worst the symptoms were severe in the emergency department the symptoms are unchanged. The patient has not experienced similar symptoms in the past. The patient has not recently seen a physician. Historical: - Allergies: 15:54 No Known Allergies; rs5 - PMHx: 15:54 Anxiety; COPD; Diabetes - IDDM; GERD; High Cholesterol; Hypertension; rs5 - PSHx: 15:54 Stomach bypass; Cholecystectomy; rs5 - Immunization history:: Adult Immunizations up to date. - Infectious Disease History:: Denies. - Social history:: Smoking status: Patient denies any tobacco usage or history of. - Family history:: not pertinent. - Hospitalizations: : No recent hospitalization is reported. ROS: 16:11 Constitutional: Negative for fever, chills, positive for weight loss Cardiovascular: rn Negative for chest pain, palpitations, and edema, Respiratory: Negative for shortness of breath, cough, wheezing, and pleuritic chest pain, Abdomen/GI: Negative for abdominal pain, nausea, vomiting, diarrhea, and constipation, MS/Extremity: Negative for injury and deformity, Neuro: Positive for generalized weakness Exam: 16:11 Constitutional: Cachectic female, no acute distress ENT: Dry mucous membranes rn transitional care: Regular rate and rhythm. No pulse deficits. Respiratory: No increased work of breathing, no retractions or nasal flaring. Abdomen/GI: Soft, no focal tenderness or distention. Pain pump palpated left abdomen Skin: Small chronic healing wounds to the right heel, left heel, lower back that appear well-healing and noninfected. Sacral wounds presents with foul smell and purulence. MS/ Extremity: Pulses equal, no cyanosis. Neuro: Awake and alert, GCS 15 Vital Signs: 15:52 BP 101 / 55; Pulse 82; Resp 17; Temp 98(O); Pulse Ox 99% on R/A; rs5 19:01 BP 107 / 62; Pulse 80; Resp 17; Pulse Ox 99% on R/A; rs5 20:00 BP 111 / 69; Pulse 90; Resp 18; Pulse Ox 100% ; kj2 22:02 BP 109 / 65; Pulse 73; Resp 18; Temp 98.2; Pulse Ox 100% ; kj2 MDM: 15:51 Medical Screening Exam initiated rn 17:56 Data reviewed: vital signs. ED course: Patient signed out to me with pending CT ec2 imaging. In brief patient arrives today with concern for failure to thrive, generalized weakness, weight loss in setting of depression due to loss of loved 1. Plan is to follow-up CT abdomen pelvis as patient has infected ulcers which she has been given vancomycin for. Plan is to admit the patient pending imaging.. 18:52 ED course: CT imaging shows no evidence of osteomyelitis, likely chronic ec2 postcholecystectomy changes with normal LFTs. Will admit for sacral ulcer with infection, cellulitis, discussed with hospitalist, pending admission. . 02/11 15:57 Order name: CBC with Diff; Complete Time: 17:21 02/11 15:57 Order name: CMP; Complete Time: 17:21 02/11 15:57 Order name: Lipase; Complete Time: 17:21 rn 02/11 15:57 Order name: Urinalysis w/ reflexes; Complete Time: 18:24 rn 02/11 15:57 Order name: CK; Complete Time: 17:21 rn 02/11 15:57 Order name: Magnesium; Complete Time: 17:21 rn 02/11 17:54 Order name: Blood Culture Adult (2): obtain before abx rn 02/11 17:54 Order name: Lactate w/ 2H reflex if indic. rn 02/11 19:53 Order name: Basic Metabolic Panel EDMS 02/11 19:53 Order name: CBC with Automated Diff EDMS 02/11 19:53 Order name: Creatine Phosphokinase EDMS 02/11 19:53 Order name: Lactate w/ 2H reflex if indic. EDCA 02/11 19:53 Order name: Liver (Hepatic) Function [facility]CA 02/11 19:53 Order name: Magnesium [facility] 02/11 19:53 Order name: NT PRO-BNP [facility] 02/11 19:53 Order name: Phosphorus [facility] 02/11 19:53 Order name: Thyroid Stimulating Hormone [facility] 02/11 19:53 Order name: Urinalysis w/ reflexes [facility] 02/11 19:53 Order name: Lipid Profile [facility] 02/11 19:53 Order name: Lipid Profile [facility] 02/11 19:54 Order name: Vitamin B12 Level [facility] 02/11 16:30 Order name: CT Abd/Pelvis - IV Contrast Only; Complete Time: 18:52 rn 02/11 19:53 Order name: CONS Physician Consult [facility] 02/11 19:53 Order name: CONS Wound Healing Center Cons [facility] 02/11 19:53 Order name: Dietitian Consult [facility] 02/11 19:53 Order name: Physical Therapy Consult [facility] 02/11 15:57 Order name: IV Saline Lock; Complete Time: 17:15 rn 02/11 15:57 Order name: Labs collected and sent; Complete Time: 17:15 rn 02/11 18:05 Order name: Straight Cath - Urine: VO at 1800; Complete Time: 18:05 aa5 Administered Medications: 16:16 Drug: NS 0.9% IV 500 ml 500 ml IV at 1 bolus once; to be given as a bolus over 30 rs5 minutes Volume: 500 ml; Route: IV; Rate: 1 bolus; Site: right antecubital; 19:05 Follow up: IV Status: Completed infusion; IV Intake: 500ml kj2 18:00 Drug: Calcium Gluconate IVPB 1 grams IVPB once over 60 mins; (mix in NS 100 mL) Route: rs5 IVPB; Infused Over: 60 mins; Site: right wrist; 21:03 Follow up: Response: No adverse reaction; IV Status: Completed infusion; IV Intake: kj2 100ml 18:20 Drug: vancoMYCIN IVPB 1 grams IVPB once over 2 hrs Route: IVPB; Infused Over: 2 hrs; rs5 Site: left forearm; 20:20 Follow up: IV Status: Completed infusion; IV Intake: 100ml kj2 19:30 Drug: Albumin IVPB 25 grams 100 ml IVPB once; (Note: Albumin 25% concentration) Volume: kj2 100 ml; Route: IVPB; Site: left forearm; 21:01 Follow up: IV Status: Completed infusion; IV Intake: 100ml kj2 Disposition Summary: 02/12/24 18:53 Hospitalization Ordered Notes: Hospitalization Status: Inpatient Admission ec2 Provider: Jose Guillen ec2 Location: Telemetry/MedSurg (Inpatient) ec2 Condition: Stable ec2 Problem: new ec2 Symptoms: are unchanged ec2 Bed/Room Type: Standard ec2 Room Assignment: 212(02/12/24 21:56) rv1 Diagnosis - Decubitus Ulcer ec2 Forms: - Medication Reconciliation Form ec2 - SBAR form ec2 - Leadership Thank You Letter ec2 Signatures: Dispatcher [employer] Leighton Grande MD MD rn Calderon, Audri, RN RN aa5 Cristela Petit rv1 Dwayne Ellis RN RN rs5 Manohar Joshi MD MD ec2 Rosanna Bowers RN RN kj2 Corrections: (The following items were deleted from the chart) 16:30 16:11 Constitutional: Cachectic female, no acute distress ENT: Dry mucous membranes rn transitional care: Regular rate and rhythm. No pulse deficits. Respiratory: No increased work of breathing, no retractions or nasal flaring. Abdomen/GI: Soft, no focal tenderness or distention. Pain pump palpated left abdomen MS/ Extremity: Pulses equal, no cyanosis. Neuro: Awake and alert, GCS 15 rn 21:56 18:53 ec2 rv1
[2024-02-12] MEDS ORDERED: ZOLPIDEM TARTRATE 5 MG TABLET PO PRN (19:44)
--- NOTE | 2024-02-12 20:00 | P.HP ---
Certification for Inpatient With expected LOS: <2 Midnights Practitioner: I am a practitioner with admitting privileges, knowledge of patient current condition, hospital course, and medical plan of care. Services: Services provided to patient in accordance with Admission requirements found in Title 42 Section 412.3 of the Code of Federal Regulations Patient History Date of Service: 02/12/24 Reason for admission: sacral ulcer infection, failure to thrive, frailty History of Present Illness: 83-year-old female with a past medical history significant for COPD, DM, HDL, GERD, and HTN presented to the emergency room with a sacral ulcer showing signs of infection. Patient is alert and oriented x 3. The patient's two family members are present at bedside. The patient states that she sees a wound doctor for her sacral wound, and was given a prescription for Santyl ointment yesterday. However, the patient believes her sacral ulcer is worsening and causing her general weakness. The patient has been unable to apply the newly prescribed sacral ointment due to general weakness. She reports recent, witnessed falls over the past 2 weeks. She denies loss of consciousness with each fall. Also, the patient states that she requires more assistance with her activities of daily living. She uses a walker as an assist device, but within the last week she has been using a wheelchair. The patient states that she lost her who is also her caregiver in November 2023. Since at this time, she reports she has lost about 15 to 20 pounds. Allergies No Known Allergies Allergy (Verified 08/25/23 11:18) Home medications list reviewed: Yes Home Medications: Acidophilus/Bulgaricus [Lactinex Tablet Chewable] 1 tab PO DAILY 10/23/22 Atorvastatin Calcium [Lipitor*] 10 mg PO BEDTIME 10/23/22 Buspirone HCl [Buspar*] 5 mg PO QID 10/23/22 Carbidopa/Levodopa [Sinemet 25-100 mg Tablet] 1 tab PO BID 10/23/22 Donepezil [Aricept*] 10 mg PO BEDTIME 10/23/22 Duloxetine HCl [Cymbalta] 90 mg PO DAILY 10/23/22 Fluticasone [Flonase 50MCG Nasal Gila*] 2 spray SUSI BEDTIME 10/23/22 Folic Acid 1 tab PO DAILY 10/23/22 Gabapentin [Neurontin] 600 mg PO BID 10/23/22 Melatonin 10 mg PO BEDTIME 10/23/22 Metoprolol Tartrate [Lopressor*] 25 mg PO BID 10/23/22 Mirabegron [Myrbetriq] 50 mg PO DAILY 10/23/22 Oxycodone HCl [Oxycodone HCl ER] 10 mg PO Q6H PRN 10/23/22 Pantoprazole [Protonix Tab*] 40 mg PO ACB 10/23/22 Trazodone HCl 100 mg PO BEDTIME 10/23/22 Vitamin B Complex [Vitamin B Complex*] 1 cap PO DAILY 10/23/22 cycloSPORINE [Restasis] 1 drop EACH EYE BID 10/23/22 Carbidopa/Levodopa 25-100 [Sinemet 25-100*] 1 tab PO TID #90 tab 10/30/22 Amlodipine [Norvasc*] 5 mg PO BID #60 tab 10/31/22 - Past Medical/Surgical History Diabetic: Yes -: HTN -: Osteoporosis -: GERD -: Diabetes mellitus type 2 -: Hyperlipidemia -: COPD -: Anxiety -: Neuropathy -: Arthritis -: Chronic Back Pain -: Frequent UTI's -: Crohn's disease -: Hysterectomy -: Cataract Sx -: Lap Band and Reversal -: Hip Sx to R hip -: Cholecystectomy Psychosocial/ Personal History: Patient is of 57 years, 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 -: Heart disease, Hypertension - Social History Smoking Status: Former smoker (quit 40 years ago) Alcohol use: No CD- Drugs: No Caffeine use: Yes Review of Systems General: Weakness Gastrointestinal: Constipation Musculoskeletal: Foot Pain (b/l foot pain) Neurological: Weakness Physical Examination - Vital Signs Temperature: 98 F Blood Pressure: 113/54 Pulse: 84 Respirations: 18 Pulse Ox (%): 100 - Physical Exam General: Alert, Oriented x3 HEENT: Atraumatic, Normocephalic Neck: JVD not distended Respiratory: Clear to auscultation bilaterally Cardiovascular: No gallops, No rubs, No murmurs Gastrointestinal: Normal bowel sounds, Non-distended Musculoskeletal: No swelling, No erythema, No tenderness, Other (b/l heel wounds, right foot worse than left foot without signs of infection) Neurological: Normal strength at 5/5 x4 extr, Sensation intact Urinary: Other (adult diaper) - Studies Laboratory Data (last 24 hrs) 02/12/24 02/12/24 16:34 16:34 WBC 9.10 Hgb 12.3 Hct 37.6 Plt Count 326 Sodium 137 Potassium 4.4 BUN 18 Creatinine 0.52 L Glucose 82 Magnesium 1.7 Total Bilirubin 0.6 AST 15 ALT < 14 Alkaline Phosphatase 60 Lipase 10 L Assessment and Plan - Problems (Diagnosis) (1) Frailty Current Visit: Yes Status: Acute (2) Failure to thrive in adult Current Visit: Yes Status: Acute (3) Sacral ulcer Current Visit: Yes Status: Acute - Plan Frailty: Admit to floor PT/OT consulted improved function Underwriting Director consulted for poor diet Encouraged healthy sleep habits-sleep aid at bedtime ordered Sacral Ulcer with signs of infection: General surgery consulted Wound care consulted- has own Santyl ointment medication Given vancomycin in emergency department blood cultures collected prior to vancomycin being given Failure to thrive: Ambulate with assistance with PT/OT Increase protein protein in diet Lab work ordered and pending IV fluids ordered - Advance Directives Does patient have a Living Will: No Does patient have a Durable POA for Healthcare: No - Code Status/Comfort Care Code Status: Full Code
[2024-02-12] MEDS: DOCUSATE NA/SENNA CONC 1 TAB PO SCH (23:47)
[2024-02-12] MEDS: NA CHLORIDE 0.9% 1,000 ML IV SCH (23:47)
[2024-02-12 23:58] VITALS: BMI 18.6
[2024-02-13] MEDS: ESZOPICLONE 1 MG TAB PO PRN (00:32)
[2024-02-13] MEDS: ACETAMINOPHEN 325 MG TABLET PO PRN (00:33)
[2024-02-13] MEDS: HEPARIN 5000 UNIT/ML 1 ML VIAL SQ SCH (00:33)
[2024-02-13 08:26] LABS: Absolute Basophils 0.1 K/uL (0-0.5); Absolute Eosinophils 0.1 K/uL (0-0.5); Absolute Lymphocytes (CBC) 1.5 K/uL (0.7-4.9); Absolute Monocytes 0.7 K/uL (0.1-1.3); Basophils % 0.8 % (0-1.3); Eosinophils % 0.7 % (0-4.4); Hematocrit 37.9 % (36.0-45.0); Hemoglobin 12.4 g/dL (12.0-15.0); MCH 31.8 pg (27.0-35.0); MCHC 32.7 g/dL (32.0-36.0); MCV 97.1 fL (80-100); MPV 8.8 fL (7.6-11.3); Monocytes % 7.9 % (3.3-12.3); Neutrophils % 72.6 % (41.7-73.7); Platelets 324 thou/uL (152-406); RBC Red Blood Cell Count 3.91 M/uL (3.86-4.86); Red Cell Distribution Width 14.2 % (12.1-15.2)
[2024-02-13 08:52] LABS: Albumin 1.8 g/dL (3.4-5.0); Albumin/Globulin Ratio 0.7 (1.1-1.8); Alkaline Phosphatase 50 U/L (45-117); Anion Gap 7.8 mEq/L (5.0-15.0); BUN Blood Urea Nitrogen 14 mg/dL (7-18); Bicarbonate 28 mEq/L (21-32); Bilirubin Direct 0.2 mg/dL (0-0.2); Bilirubin Indirect, Calculated 0.2 mg/dL (0.2-0.8); Bilirubin Total 0.4 mg/dL (0.2-1.0); Globulin 2.7 g/dL (2.3-3.5); Glomerular Filtration Rate 101 ml/min (=/>90); Glucose Level 87 mg/dL (74-106); Magnesium 1.7 mg/dL (1.6-2.4); NT PRO-BNP 1755 pg/mL (<450); Phosphorus 3.2 mg/dL (2.5-4.9); Potassium 3.8 mEq/L (3.5-5.1); Protein, Total 4.5 g/dL (6.4-8.2); Sodium Level 137 mEq/L (136-145)
[2024-02-13 08:54] LABS: ALT/SGPT < 14 U/L (13-56); AST/SGOT < 10 U/L (15-37); Creatine Phosphokinase < 15 U/L (26-192)
[2024-02-13] MEDS: PIPER TAZO 3.375 GM in NA CHLORIDE 0.9% 100 ML IV ONE (09:00)
[2024-02-13] MEDS: BUPIVACAINE 0.5% PF 10 ML VIAL ONE (09:06)
[2024-02-13] MEDS: COLLAGENASE 30 GM OINTMENT TOP ONE ×2 (09:06→09:41)
[2024-02-13] MEDS ORDERED: ONDANSETRON 4 MG/2 ML VIAL ONE (09:16)
[2024-02-13] MEDS ORDERED: LIDOCAINE 2% MPF 5 ML VIAL ONE (09:16)
[2024-02-13] MEDS ORDERED: propofoL 200 MG/20 ML VIAL IV ONE (09:17)
[2024-02-13] MEDS ORDERED: FENTANYL CITR 100 MCG/2 ML ONE (09:17)
--- NOTE | 2024-02-13 10:24 | P.OP ---
Date of Service: 02/13/24 Preop diagnosis: Infected sacral decubitus, back wounds x 2, bilateral heel wounds Postop diagnosis: Same Procedure performed: Excisional debridement of sacral decubitus 3 x 4 cm to subcutaneous tissue, debridement of lower back wound 3 x 1 cm to subcutaneous tissue and debridement of bilateral heel decubitus approximately 4 x 4 cm in total partial-thickness Surgeon: Gavin Logan MD Associate Store Manager: None Estimated blood loss: Minimal Specimen: Infected tissue for culture and sensitivity, debridement tissue Findings: As above Anesthesia: General Complications: None Drains: None Fluids and blood products: Nonapplicable Disposition: Recovery room Operative note: Patient brought to the OR and placed in supine position. Gene ral anesthesia began. Patient placed in the right lateral position. Patient prepped and draped in usual sterile fashion. Marcaine 0.5% infiltrated for postop pain control. Then scissors, cautery and curette used to debride the sacral decubitus down to the deep subcutaneous tissue. The debridement area was approximately 3 x 4 cm with undermining 3 cm from 6-12 o'clock. Infected tissue was sent for culture and sensitivity and debridement tissue was sent to pathology. Wound was irrigated and bleeding controlled cautery. Santyl with wound VAC was placed. Lower back wound had fibrin present in the and this area was debrided with a curette. The area debrided was 3 x 1 cm and extended to the subcutaneous tissue. Lydia dressing was applied to both back wounds. The upper back wound was partial-thickness approximately 2 x 1 cm. Both heels had partial-thickness wounds with nonviable epidermis and dermis. A total area of 4 x 4 cm was debrided with scissors. Bleeding was controlled with cautery. Lydia dressing was applied. After all wounds were covered patient was awakened and taken to recovery room in good general condition. CC:
[2024-02-13] MEDS: NA CHLORIDE 0.9% 1,000 ML ONE (10:38)
[2024-02-13] MEDS ORDERED: MELATONIN 5 MG TABLET PO PRN (10:42)
[2024-02-13] MEDS: CARBIDOPA/LEVODOPA 25/100 TAB PO SCH (10:45)
[2024-02-13] MEDS ORDERED: HYDROMORPHONE HCL 0.5 MG/0.5 ML INJ IV PRN (11:11)
[2024-02-13] MEDS: DONEPEZIL HCL 5 MG TAB PO SCH (12:23)
[2024-02-13] MEDS: SOTALOL HCL 80 MG TAB PO SCH (12:23)
[2024-02-13] MEDS: MEMANTINE HCL 10 MG TABLET PO SCH (12:23)
[2024-02-13] MEDS: ONDANSETRON 4 MG (ODT) TAB PO PRN (12:27)
--- NOTE | 2024-02-13 13:16 | PREOPCON ---
Date of Consultation: 02/13/2024 Reason For Consultation: Infected sacral decubitus ulcer. History Of Present Illness: The patient is an 83-year-old female with multiple medical problems who presented to the emergency room with sacral decubitus, now showing signs of infection. She states th at she saw Dr. Moncada a couple of days ago, was started on Santyl and Bactroban. However, her wound has become worse and she feels that she is more weak and she came to the emergency room, was evaluat ed and admitted, I was consulted. She is awake, alert, oriented x3. She denies any sore throat, run ny nose, cough, headaches, or dizziness. No chest pain. No fever or chills. She does state that th ere is some drainage out of the wound, she has been told. Review of Systems: Otherwise unremarkable. Past Medical History: Significant for hypertension, osteoporosis, GERD, type 2 diabetes, hyperlipide castro, COPD, anxiety, frequent UTIs, Crohn disease. Past Surgical History: Hysterectomy, cholecystectomy, cataract surgery, lap band, hip surgery. Allergies: NO ALLERGIES. Social History: The patient used to smoke. Does not drink alcohol. Family History: Significant for heart disease and hypertension. Physical Examination: Vital Signs: Stable. She is afebrile. General: She is awake, alert, oriented x3. Head and Neck: No masses. Chest: Clear. Heart: S1, S2. Abdomen: Soft. Extremities: Neurovascularly intact. Neuro: Nonfocal. Skin: Multiple decubitus ulcers as documented in the notes. The patient has a back wound which appe ars to be partial thickness. She has a lower back wound which has some fibrin in it, approximately 3 x 2 cm. She has a sacral decubitus which has necrotic fibrin, undermining, purulence in it. It is approximately 4 x 4 cm. She has a heel wound on the left side, which is partial stage II secondary t o pressure. No sign of infection and no purulence in it. Laboratory Data: Reviewed. White count is normal. There was a left shift when she was admitted. C hemistry reviewed, essentially unremarkable. CT of the abdomen and pelvis was done which does show t he ulceration without any bone involvement on the sacrum and no other acute findings were noted. The patient does have a large amount of stool burden throughout the colon. The patient also based on th e history has failure to thrive and she is not eating well. Assessment: Sacral back and heel wounds and buttocks wound, the sacral wound needs surgical debridem ent, failure to thrive. Recommendation: Strongly advised that the patient improve her nutrition, offloading and surgical rajiv ridement of the sacral wound. The patient understands risks, benefits, alternatives and agrees to pr ocedure. We will check the cultures and adjust antibiotics accordingly. The patient will most likel y need a wound VAC for the sacral decubitus once we get the infection under control. Plan of care wa s discussed in detail with the patient. /MODL Voice ID: [id number] Report ID: [id number]
--- NOTE | 2024-02-13 13:55 | P.PN ---
Subjective Date of Service: 02/13/24 Chief Complaint: sacral ulcer infection, failure to thrive, frailty Status post debridement of sacral and hip ulcers today. No recorded fever. Patient denies any pain. Physical Examination - Vital Signs Temperature: 97.6 F Blood Pressure: 125/57 Pulse: 109 Respirations: 16 Pulse Ox (%): 94 - Studies Laboratory Data (last 24 hrs) 02/12/24 02/12/24 16:34 16:34 WBC 9.10 Hgb 12.3 Hct 37.6 Plt Count 326 Sodium 137 Potassium 4.4 BUN 18 Creatinine 0.52 L Glucose 82 Magnesium 1.7 Total Bilirubin 0.6 AST 15 ALT < 14 Alkaline Phosphatase 60 Lipase 10 L Microbiology Data (last 24 hrs): 02/12/24 18:55 Blood - Blood Anaerobic Blood Culture - Final Assessment And Plan - Plan Physical examination General: Alert and oriented x3, NAD, cachectic. HEENT: Conjunctiva not pale, anicteric sclera Neck: Supple, no elevated JVD Heart: Heart sounds 1 and 2 normal, regular rhythm, normal rate, no pedal edema Lungs: Clear to auscultation bilaterally, adequate breath sounds bilaterally, no rhonchi or crackles. Abdomen: Soft, nondistended, nontender, normal bowel sounds. Extremities: No tenderness, no deformity Skin: Normal skin turgor, stage IV sacral decubitus ulcer, stage III bilateral heel ulcers. Neuro: No focal motor deficit. Normal speech. Psychiatry: Normal mood, no agitation. Assessment and plan Sacral decubitus ulcer Heel decubitus ulcer General Surgery Dr. Logan consulted Status post excisional debridement of sacral decubitus ulcer, bilateral heel ulcers and back wound by Dr. Logan. Follow deep tissue wound culture. Local wound care. Frequent turning and other decubitus ulcer precautions. Severe protein calorie malnutrition Failure to thrive Patient reports poor oral intake She lives cachectic. Dietitian consult. High-calorie diet as tolerated. Diabetes mellitus type 2 Blood sugar management with insulin sliding scale. Chronic atrial fibrillation Continue sotalol Patient is not anticoagulated. Parkinson's disease Dementia Continue home medications. Essential hypertension Continue home antihypertensives. DVT prophylaxis: Heparin sq Advanced directive: Full code
[2024-02-13] MEDS ORDERED: GLUCAGON 1 MG/VIAL IM PRN (14:17)
[2024-02-13] MEDS ORDERED: D10W 125 ML IV PRN (14:17)
[2024-02-13] MEDS: INSULIN REGULAR (HUMAN) 100 UNIT/ML SQ SCH (16:30)
[2024-02-13] MEDS: GABAPENTIN 300 MG CAP PO SCH (20:49)
[2024-02-13] MEDS: ATORVASTATIN 10 MG TAB PO SCH (20:49)
[2024-02-13] MEDS: ESZOPICLONE 1 MG TAB PO SCH (20:50)
[2024-02-13] MEDS: ENSURE ENLIVE 237 ML CAN PO SCH (20:50)
[2024-02-13] MEDS: JUVEN PACKET PO SCH (20:50)
[2024-02-13] MEDS: HOME MED 1 EA UNK (Cyclosporine [Restasis] Droperette) OPTH SCH (20:50)
[2024-02-14 06:08] LABS: Absolute Basophils 0.1 K/uL (0-0.5); Absolute Eosinophils 0.1 K/uL (0-0.5); Absolute Monocytes 0.7 K/uL (0.1-1.3); Basophils % 0.8 % (0-1.3); Eosinophils % 1.1 % (0-4.4); Hematocrit 36.2 % (36.0-45.0); Hemoglobin 11.9 g/dL (12.0-15.0); Lymphocytes % 29.6 % (15.3-44.8); MCH 32.1 pg (27.0-35.0); MCHC 32.9 g/dL (32.0-36.0); MCV 97.6 fL (80-100); MPV 8.9 fL (7.6-11.3); Monocytes % 10.3 % (3.3-12.3); Neutrophils % 58.2 % (41.7-73.7); Platelets 284 thou/uL (152-406); RBC Red Blood Cell Count 3.71 M/uL (3.86-4.86); Red Cell Distribution Width 14.4 % (12.1-15.2)
[2024-02-14 06:20] LABS: Anion Gap 4.6 mEq/L (5.0-15.0); Potassium 3.6 mEq/L (3.5-5.1)
[2024-02-14] MEDS: MONTELUKAST 10 MG TAB PO SCH (08:08)
[2024-02-14] MEDS: PANTOPRAZOLE 40MG TABLET PO SCH (08:08)
[2024-02-14] MEDS: ASCORBIC ACID 500 MG TABLET PO SCH (08:08)
[2024-02-14] MEDS: VITAMIN B COMPLEX 1 CAP PO SCH (08:08)
[2024-02-14] MEDS: VITAMIN D 1000 UNIT TAB PO SCH (08:08)
[2024-02-14] MEDS: ZINC SULFATE 220 MG CAP PO SCH (08:08)
[2024-02-14] MEDS: Multi-VIT(Centravite Senior) 1 TAB TAB PO SCH (08:08)
[2024-02-14] MEDS: FOLIC ACID 1 MG TABLET PO SCH (08:08)
[2024-02-14] MEDS: ASPIRIN 81 MG CHEWABLE TABLET PO SCH (08:09)
[2024-02-14] MEDS: DULOXETINE 30 MG CAP PO SCH (08:09)
[2024-02-14] MEDS: POTASSIUM 25 MEQ EFFERV TAB PO ONE (08:10)
[2024-02-14] MEDS: AMLODIPINE 10 MG TAB PO SCH (08:14)
[2024-02-14] MEDS: BENAZEPRIL 20 MG TAB PO SCH (08:14)
[2024-02-14] MEDS: FLUTICASONE 50MCG NASAL SPRAY NAS SCH (08:15)
[2024-02-14] MEDS ORDERED: HOME MED 1 EA UNK (Omeprazole [Prilosec] 40 MG Capsule.Dr) PO SCH (09:00)
[2024-02-14] MEDS ORDERED: HOME MED 1 EA UNK (Cholecalciferol (Vitamin D3) [Vitamin D3] 1,000 UNIT Capsule) PO SCH (09:00)
[2024-02-14] MEDS ORDERED: HOME MED 1 EA UNK (Simvastatin [Zocor] 20 MG Tablet) PO SCH (09:00)
--- NOTE | 2024-02-14 11:25 | PN ---
Date of Progress Note: 02/14/2024 Subjective: The patient is awake, alert. She is still complaining of some discomfort and she is not taking her nutritional supplements as ordered. Her daughter is at the bedside. Daughter states andre t she is unsafe to be discharged to home as she is a fall risk and she is difficult to take care of a t home. Objective: The patient's vital signs are stable. She is afebrile. Her laboratory data is reviewed. Neutrophil percentage is normal. Chemistries reviewed, essentially unremarkable. Gram stain reviewed and the patient had gram-negative rods and gram-positive cocci in clusters growing. Sensitivity is pending. Examination of the patient reveals the dressing and the wound VAC to be clean, dry, and intact. Assessment: Status post debridement of infected sacral wound and multiple other wounds on the back a nd heels. Recommendations: I had a long discussion with the daughter and we will get Physical Therapy to evalu ate the patient is to see if she qualifies for rehab. If not, I believe [facility] for this patient safely. We will check the cultures and adjust the antibiotics accordingly. We will continue wound care as ordered and the patient can follow up with me in the [facility] upon discharge. Plan of care discussed in detail with Dr. Monzon as well. ELOY/ARIAN Voice ID: [id number] Report ID: [id number]
--- NOTE | 2024-02-14 13:14 | P.PN ---
Subjective Date of Service: 02/14/24 Chief Complaint: sacral ulcer infection, failure to thrive, frailty Patient has no new complaint. She denies pain She states she is eating well No recorded fever. Physical Examination - Vital Signs Temperature: 97.3 F Blood Pressure: 108/65 Pulse: 67 Respirations: 14 Pulse Ox (%): 95 - Studies Microbiology Data (last 24 hrs): 02/12/24 18:55 Blood - Blood Anaerobic Blood Culture - Final Assessment And Plan - Plan Physical examination General: Alert and oriented x3, NAD, cachectic. Neck: Supple Heart: Heart sounds 1 and 2 normal, regular rhythm, normal rate, no pedal edema Lungs: Clear to auscultation bilaterally, adequate breath sounds bilaterally, no rhonchi or crackles. Abdomen: Soft, nondistended, nontender, normal bowel sounds. Extremities: No tenderness, no deformity Skin: Normal skin turgor, stage IV sacral decubitus ulcer, stage III bilateral heel ulcers. Neuro: No focal motor deficit. Normal speech. Psychiatry: Normal mood, no agitation. Assessment and plan Sacral decubitus ulcer Heel decubitus ulcer General Surgery Dr. Logan consulted Status post excisional debridement of sacral decubitus ulcer, bilateral heel ulcers and back wound by Dr. Logan. Follow deep tissue wound culture. Local wound care. Frequent turning and other decubitus ulcer precautions. Continue IV Zosyn. Severe protein calorie malnutrition Failure to thrive Impaired mobility Patient reports poor oral intake Patient is cachectic. Dietitian consulted High-calorie diet as tolerated. Increase activity as tolerated. Patient slated for SNF. Diabetes mellitus type 2 Blood sugar management with insulin sliding scale. Chronic atrial fibrillation Continue sotalol Patient is not anticoagulated. Parkinson's disease Dementia Continue home medications. Essential hypertension Continue home antihypertensives. DVT prophylaxis: Heparin sq Advanced directive: Full code
[2024-02-14] MEDS: PIPER TAZO 3.375 GM in NA CHLORIDE 0.9% 100 ML IV SCH (17:04)
[2024-02-15] MEDS: HYDROCODONE/APAP 7.5/325 MG TAB PO PRN (04:52)
[2024-02-15 07:14] LABS: Anion Gap 5.7 mEq/L (5.0-15.0); Potassium 3.7 mEq/L (3.5-5.1)
[2024-02-15] MEDS: CEFEPIME 2 GM in NA CHLORIDE 0.9% 100 ML IV SCH (12:06)
--- NOTE | 2024-02-15 13:10 | P.PN ---
Subjective Date of Service: 02/15/24 Chief Complaint: sacral ulcer infection, failure to thrive, frailty Patient has no new complaint. She states her pain is well-controlled. Her oral intake has improved. Patient was able to stand with physical therapy yesterday. Physical Examination - Vital Signs Temperature: 97.1 F Blood Pressure: 113/57 Pulse: 69 Respirations: 14 Pulse Ox (%): 95 Assessment And Plan - Plan Physical examination General: Alert and oriented x3, NAD, cachectic. Neck: Supple Heart: Heart sounds 1 and 2 normal, regular rhythm, normal rate, no pedal edema Lungs: Clear to auscultation bilaterally, adequate breath sounds bilaterally, no rhonchi or crackles. Abdomen: Soft, nondistended, nontender, normal bowel sounds. Extremities: No tenderness, no deformity Skin: Normal skin turgor, stage IV sacral decubitus ulcer, stage III bilateral heel ulcers. Neuro: No focal motor deficit. Normal speech. Psychiatry: Normal mood, no agitation. Assessment and plan Sacral decubitus ulcer Heel decubitus ulcer General Surgery Dr. Logan input appreciated Status post excisional debridement of sacral decubitus ulcer, bilateral heel ulcers and back wound by Dr. Logan. Follow deep tissue wound culture growing Pseudomonas aeruginosa and Klebsiella pneumonia, both organisms sensitive to only IV antibiotics. Case discussed with Dr. Logan. Planning 2 weeks of IV antibiotics. Place midline for outpatient IV antibiotic. Change IV Zosyn to IV cefepime. Local wound care. Frequent turning and other decubitus ulcer precautions. Severe protein calorie malnutrition Failure to thrive Impaired mobility Patient reports poor oral intake Patient is cachectic. Dietitian consulted High-calorie diet as tolerated. Increase activity as tolerated. Patient's oral intake is improving She is slated for SNF. Diabetes mellitus type 2 Blood sugar management with insulin sliding scale. Chronic atrial fibrillation Continue sotalol Patient is not anticoagulated. Parkinson's disease Dementia Continue home medications. Essential hypertension Continue home antihypertensives. DVT prophylaxis: Heparin sq Advanced directive: Full code
--- NOTE | 2024-02-16 13:09 | P.PN ---
Subjective Date of Service: 02/16/24 Chief Complaint: sacral ulcer infection, failure to thrive, frailty Patient had an episode of diarrhea yesterday in the evening. She s reports no diarrhea overnight. Her oral intake has improved. She is tolerating physical therapy. Physical Examination - Vital Signs Temperature: 98.0 F Blood Pressure: 98/5 Pulse: 61 Respirations: 16 Pulse Ox (%): 96 Assessment And Plan - Plan Physical examination General: Alert and oriented x3, NAD, cachectic. Neck: Supple Heart: Heart sounds 1 and 2 normal, regular rhythm, normal rate, no pedal edema Lungs: Clear to auscultation bilaterally, adequate breath sounds bilaterally, no rhonchi or crackles. Abdomen: Soft, nondistended, nontender, normal bowel sounds. Extremities: No tenderness, no deformity Skin: Normal skin turgor, stage IV sacral decubitus ulcer, stage III bilateral heel ulcers. Neuro: No focal motor deficit. Normal speech. Psychiatry: Normal mood, no agitation. Assessment and plan Sacral decubitus ulcer Heel decubitus ulcer General Surgery Dr. Logan input appreciated Status post excisional debridement of sacral decubitus ulcer, bilateral heel ulcers and back wound by Dr. Logan. Follow deep tissue wound culture growing Pseudomonas aeruginosa, Enterococcus faecalis and Klebsiella pneumonia. Case discussed with Dr. Logan. Planning 2 weeks of IV [address] midline for outpatient IV antibiotic. Change IV cefepime to meropenem to provide anaerobic coverage given reported diarrhea. Local wound care. Frequent turning and other decubitus ulcer precautions. Severe protein calorie malnutrition Failure to thrive Impaired mobility Patient reports poor oral intake Patient is cachectic. Dietitian consulted High-calorie diet as tolerated. Increase activity as tolerated. Patient's oral intake is improving She is slated for SNF. Diabetes mellitus type 2 Blood sugar management with insulin sliding scale. Chronic atrial fibrillation Continue sotalol Patient is not anticoagulated. Parkinson's disease Dementia Continue home medications. Essential hypertension Continue home antihypertensives. DVT prophylaxis: Heparin sq Advanced directive: Full code Awaiting insurance authorization for SNF placement.
--- NOTE | 2024-02-16 14:54 | PN ---
Date of Progress Note: 02/16/2024 Subjective: The patient is awake, alert. No complaints. Objective: Vitals stable, afebrile. Cultures report has not changed. Her dressing is clean, dry, intact. Assessment: Status post debridement of multiple wounds including the sacral decubitus. Recommendations: Nutritional optimization and vitamins as ordered. Offloading. Discharge planning, the patient will be evaluated for an SNF facility that can provide IV antibiotics and wound care. T he patient will need IV antibiotics for 2 weeks. Wound care as ordered. [facility]. /MODL Voice ID: [id number] Report ID: [id number]
[2024-02-16] MEDS: Meropenem 1,000 MG in NA CHLORIDE 0.9% 100 ML IV SCH (15:53)
[2024-02-17 06:24] LABS: Absolute Basophils 0.1 K/uL (0-0.5); Absolute Eosinophils 0.1 K/uL (0-0.5); Absolute Lymphocytes (CBC) 1.7 K/uL (0.7-4.9); Absolute Monocytes 0.6 K/uL (0.1-1.3); Absolute Neutrophil 5.3 K/uL (1.8-8.0); Eosinophils % 1.5 % (0-4.4); Hematocrit 37.7 % (36.0-45.0); Hemoglobin 12.8 g/dL (12.0-15.0); Lymphocytes % 21.8 % (15.3-44.8); MCH 32.5 pg (27.0-35.0); MCHC 34.1 g/dL (32.0-36.0); MCV 95.5 fL (80-100); MPV 8.9 fL (7.6-11.3); Monocytes % 7.9 % (3.3-12.3); Neutrophils % 67.8 % (41.7-73.7); Nucleated Red Blood Cells % 0.2 % (0-0); Platelets 325 thou/uL (152-406); RBC Red Blood Cell Count 3.94 M/uL (3.86-4.86); Red Cell Distribution Width 14.2 % (12.1-15.2)
[2024-02-17 06:41] LABS: Anion Gap 5.3 mEq/L (5.0-15.0); Magnesium 1.7 mg/dL (1.6-2.4); Potassium 3.3 mEq/L (3.5-5.1)
--- NOTE | 2024-02-17 06:45 | P.PN ---
Date of Service: 02/17/24 Subjective: no acute events overnight reports BMs have slowed down in last 2 days. had 2 yesterday headache today, feels tired ROS: 10 point ROS as noted above, otherwise negative Physical Exam: GEN: Alert, oriented x3, NAD CV: Regular rate and rhythm, 1-2+ b/l edema to above ankles Pulm: Nonlabored respirations on room air, clear bilaterally ABD: soft, nontender, nondistended Integumentary: stage IV sacral decubitus ulcer, stage III bilateral heel ulcers; dressing in place Neuro: Normal speech, normal affect Problem List: Sacral/Heel decubitus ulcer, now s/p I&D (02/12) Chronic back wound s/p I&D (02/12) Severe protein calorie malnutrition Failure to thrive Impaired mobility NIDDM2 Chronic atrial fibrillation Parkinson's disease Dementia Hypertension Sacral/Heel decubitus ulcer, now s/p I&D (02/12) Chronic back wound s/p I&D (02/12) on admission, presents with chronic nonhealing sacral wound, bilateral heel wounds, back wounds x2. Associated with poor intake/generalized weakness/recent falls. General Surgery Dr. Logan consulted s/p I&D of sacral decubitus ulcer, bilateral heel ulcers and back wound (02/12) continue local wound care, pressure offloading measures wound vac in place f/u wound healing center on discharge wound cx grew multiple organisms - Pseudomonas Aeruginosa, Enterococcus Faecalis and Klebsiella Pneumoniae Previously on IV cefepime (02/14-02/15); switched to meropenem to provide anaerobic coverage given reported diarrhea. Midline placed 02/15 for IV antibiotics. Patient is to complete 2 weeks of IV merrem Continue IV merrem (02/16-03/01) Severe protein calorie malnutrition Failure to thrive Impaired mobility Patient is cachectic and reports poor oral intake at home. Dietitian consulted Supplemental nutrition as tolerated oral intake slowly improving Patient/family looking into SNF NIDDM2 accu-cheks, SSI Chronic atrial fibrillation continue home sotalol not on anticoagulation Parkinson's disease Dementia Hypertension continue home medications VTE: heparin sq Code: Full Dispo: SNF - pending approval Time Spent Managing Pts Care (In Minutes): 41
[2024-02-17] MEDS: ENSURE HIGH PROTEIN 237 ML CAN PO SCH (21:00)
[2024-02-18 05:41] LABS: Anion Gap 5.1 mEq/L (5.0-15.0); Magnesium 1.7 mg/dL (1.6-2.4); Potassium 3.1 mEq/L (3.5-5.1)
[2024-02-18] MEDS: POTASSIUM CL SA 10 MEQ TAB PO ONE (06:04)
[2024-02-18] MEDS: MAGNESIUM SULFATE 1 gm IVPB 1 GM/100 ML BAG IV ONE (06:04)
--- NOTE | 2024-02-18 09:41 | P.PN ---
Date of Service: 02/18/24 Subjective: creases in groin/buttocks feels raw and is painful 3 loose BM in last 24hrs , 1 this morning pending SNF auth didn't work with PT yesterday due to headache/dizziness afebrile low appetite ROS: 10 point ROS as noted above, otherwise negative Physical Exam: GEN: Alert, oriented x3, NAD CV: Regular rate and rhythm, 1 + b/l edema to above ankles Pulm: Nonlabored respirations on room air, clear bilaterally ABD: soft, nontender, nondistended Integumentary: stage IV sacral decubitus ulcer, stage III bilateral heel ulcers; raw erythematous groin, Neuro: Normal speech, normal affect Singh in place; placed 02/12 Problem List: Sacral/Heel decubitus ulcer, now s/p I&D (02/12) Chronic back wound s/p I&D (02/12) Severe protein calorie malnutrition Failure to thrive Impaired mobility NIDDM2 Chronic atrial fibrillation Parkinson's disease Dementia Hypertension Sacral/Heel decubitus ulcer, now s/p I&D (02/12) Chronic back wound s/p I&D (02/12) on admission, presents with chronic nonhealing sacral wound, bilateral heel wounds, back wounds x2. Associated with poor intake/generalized weakness/recent falls. General Surgery Dr. Logan consulted s/p I&D of sacral decubitus ulcer, bilateral heel ulcers and back wound (02/12) continue local wound care, pressure offloading measures wound vac in place f/u wound healing center on discharge wound cx grew multiple organisms - Pseudomonas Aeruginosa, Enterococcus Faecalis and Klebsiella Pneumoniae Previously on IV cefepime (02/14-02/15); switched to meropenem to provide anaerobic coverage given reported diarrhea. Midline placed 02/15 for IV antibiotics. Patient is to complete 2 weeks of IV merrem Continue IV merrem (02/16-03/01) continue singh for now, skin barrier cream to groin Severe protein calorie malnutrition Failure to thrive Impaired mobility Patient is cachectic and reports poor oral intake at home. Dietitian consulted Supplemental nutrition as tolerated oral intake slowly improving Patient/family looking into SNF NIDDM2 accu-cheks, SSI Chronic atrial fibrillation continue home sotalol not on anticoagulation Parkinson's disease Dementia Hypertension continue home medications VTE: heparin sq Code: Full Dispo: SNF - pending approval, ~1-2 days Time Spent Managing Pts Care (In Minutes): 41
[2024-02-18] MEDS: ACETIC ACID 0.25% IRRIG IRR SCH (15:48)
[2024-02-18 22:45] VITALS: O2SAT 98
[2024-02-19 05:28] LABS: Anion Gap 3.7 mEq/L (5.0-15.0); Potassium 3.7 mEq/L (3.5-5.1)
--- NOTE | 2024-02-19 08:36 | P.DS ---
Admission Date: 02/12/24 Discharge Date: 02/19/24 Disposition: TRANSFER TO SNF - REHAB Reason for Admission: sacral ulcer infection, failure to thrive, frailty Consultations: General Surgery - Dr. Logan Brief History of Present Illness: 83yo F, PMH: COPD, DM, HDL, GERD, and HTN Patient presented to the emergency room with a sacral ulcer showing signs of infection. Patient is alert and oriented x 3. The patient's two family members are present at bedside. The patient states that she sees a wound doctor for her sacral wound, and was given a prescription for Santyl ointment yesterday. However, the patient believes her sacral ulcer is worsening and causing her general weakness. The patient has been unable to apply the newly prescribed sacral ointment due to general weakness. She reports recent, witnessed falls over the past 2 weeks. She denies loss of consciousness with each fall. Also, the patient states that she requires more assistance with her activities of daily living. She uses a walker as an assist device, but within the last week she has been using a wheelchair. The patient states that she lost her who is also her caregiver in November 2023. Since at this time, she reports she has lost about 15 to 20 pounds. Hospital Course: Problem List: Sacral/Heel decubitus ulcer, now s/p I&D (02/12) Chronic back wound s/p I&D (02/12) Severe protein calorie malnutrition Failure to thrive Impaired mobility NIDDM2 Chronic atrial fibrillation Parkinson's disease Dementia Hypertension Physician discharge instructions: Patient presents with worsening chronic nonhealing sacral decubitus ulcer, bilateral heel wounds, back wounds x2 associated with generalized weakness, poor intake, frequent falls at home. She was evaluated by Dr. Logan, general surgeon and underwent I&D of sacral decubitus ulcer, bilateral heel ulcers and back wound (02/12). Wound vac placed. Wound cultures grew multiple organisms - Pseudomonas Aeruginosa, Enterococcus Faecalis and Klebsiella Pneumoniae. She initially received cefepime, however was switched to meropenem to provide aneorobic coverage given reported diarrhea. Diarrhea frequency improved, and slowly became less watery. She did develop irritated skin in her buttocks/groin region which barrier cream was applied. Midline was placed for IV antibiotics 02/15. Patient is to complete a 2 week course of IV meropenem (End date: 03/01). Patient was feeling better, afebrile without leukocytosis, pain improving, and deemed stable to SNF. Medications: IV meropenem (End date: 03/01) Follow up: PCP 3-[address] Logan at wound healing center in ~1 week Please call to schedule / confirm appointments continue current local wound care at SNF: Please clean wound with acetic acid quarter percent when changing the dressing Wound VAC with Santyl to sacral wound Friday and Friday Lydia to both back wounds and both heel wounds Friday and Friday with foam Physical Exam: GEN: Alert, oriented x3, NAD CV: Regular rate and rhythm, 1+ b/l edema to above ankles Pulm: Nonlabored respirations on room air, clear bilaterally ABD: soft, nontender, nondistended Integumentary: stage IV sacral decubitus ulcer, stage III bilateral heel ulcers; raw erythematous groin. Dressing in place Neuro: Normal speech, normal affect Vital Signs/Physical Exam: Temp Pulse Resp BP Pulse Ox 97.7 F 64 14 118/53 L 94 02/19/24 08:27 02/19/24 08:27 02/19/24 08:27 02/19/24 08:27 02/19/24 08:27 Laboratory Data at Discharge: WBC 7.80 thou/uL (4.3-10.9) 02/17/24 05:47 Hgb 12.8 g/dL (12.0-15.0) 02/17/24 05:47 Hct 37.7 % (36.0-45.0) 02/17/24 05:47 Plt Count 325 thou/uL (152-406) 02/17/24 05:47 Sodium 138 mEq/L (136-145) 02/19/24 05:01 Potassium 3.7 mEq/L (3.5-5.1) 02/19/24 05:01 BUN 24 mg/dL (7-18) H 02/19/24 05:01 Creatinine 0.30 mg/dL (0.55-1.02) L 02/19/24 05:01 Glucose 91 mg/dL (74-106) 02/19/24 05:01 Phosphorus 3.2 mg/dL (2.5-4.9) 02/13/24 08:18 Magnesium 2.0 mg/dL (1.6-2.4) 02/19/24 05:01 Total Bilirubin 0.4 mg/dL (0.2-1.0) 02/13/24 08:18 AST < 10 U/L (15-37) L 02/13/24 08:18 ALT < 14 U/L (13-56) 02/13/24 08:18 Alkaline Phosphatase 50 U/L (45-117) 02/13/24 08:18 Triglycerides 104 mg/dL (<150) 02/13/24 05:33 Cholesterol 69 mg/dL (<200) 02/13/24 05:33 HDL Cholesterol 41 mg/dL (40-60) 02/13/24 05:33 Cholesterol/HDL Ratio 1.68 02/13/24 05:33 Lipase 10 U/L (13-75) L 02/12/24 16:34 Home Medications: RX: Buspirone HCl [Buspar*] 10 mg PO Q6HP PRN 10/23/22 RX: Donepezil [Aricept*] 10 mg PO BID 10/23/22 RX: Duloxetine HCl [Cymbalta] 90 mg PO DAILY 10/23/22 RX: Fluticasone [Flonase 50MCG Nasal [place]*] 2 spray SUSI DAILY 10/23/22 RX: Folic Acid 1 tab PO DAILY 10/23/22 RX: Gabapentin [Neurontin] 600 mg PO BID 10/23/22 RX: Melatonin 10 mg PO BEDTIME PRN PRN 10/23/22 RX: Vitamin B Complex [Vitamin B Complex*] 1 cap PO DAILY 10/23/22 RX: cycloSPORINE [Restasis] 1 drop EACH EYE BID 10/23/22 RX: Carbidopa/Levodopa 25-100 [Sinemet 25-100*] 1 tab PO TID #90 tab 10/30/22 Oxycodone HCl/Acetaminophen [Percocet 10-325 mg Tablet] 1 each PO Q12H 02/13/24 RX: Acetaminophen [Tylenol] 650 mg PO BIDP PRN 02/13/24 RX: Amlodipine Besylate/Benazepril [Amlodipine-Benazepril 10-40 mg] 1 each PO DAILY 02/13/24 RX: Aspirin Chewable [Aspirin Chewable*] 81 mg PO DAILY 02/13/24 RX: Cholecalciferol (Vitamin D3) [Vitamin D3] 1,000 unit PO DAILY 02/13/24 RX: Eszopiclone [Lunesta] 3 mg PO BEDTIME 02/13/24 RX: Ibandronate Sodium [Boniva] 150 mg PO SEECOM 02/13/24 RX: Ibuprofen [Motrin*] 200 mg PO Q6HP PRN 02/13/24 RX: Memantine HCl [Namenda*] 10 mg PO BID 02/13/24 RX: Methotrexate [Methotrexate*] 5 tab PO Q7D 02/13/24 RX: Montelukast Sodium [Singulair] 10 mg PO DAILY 02/13/24 RX: Multivit-Min/Iron/Folic/Lutein [Centrum Silver Women Tablet] 1 each PO DAILY 02/13/24 RX: Omeprazole [Prilosec] 40 mg PO DAILY 02/13/24 RX: Simvastatin [Zocor] 20 mg PO DAILY 02/13/24 RX: Sotalol HCl [Betapace*] 80 mg PO BID 02/13/24 RX: Turmeric Root Extract [Turmeric Curcumin] 500 mg PO DAILY 02/13/24 Trospium Chloride Er 60 mg PO DAILY 02/13/24 Physician Discharge Instructions: Physician discharge instructions: Patient presents with worsening chronic nonhealing sacral decubitus ulcer, bilateral heel wounds, back wounds x2 associated with generalized weakness, poor intake, frequent falls at home. She was evaluated by Dr. Logan, general surgeon and underwent I&D of sacral decubitus ulcer, bilateral heel ulcers and back wound (02/12). Wound vac placed. Wound cultures grew multiple organisms - Pseudomonas Aeruginosa, Enterococcus Faecalis and Klebsiella Pneumoniae. She initially received cefepime, however was switched to meropenem to provide aneorobic coverage given reported diarrhea. Diarrhea frequency improved, and slowly became less watery. She did develop irritated skin in her buttocks/groin region which barrier cream was applied. Midline was placed for IV antibiotics 02/15. Patient is to complete a 2 week course of IV meropenem (End date: 03/01). Patient was feeling better, afebrile without leukocytosis, pain improving, and deemed stable to SNF. Medications: IV meropenem (End date: 03/01) Follow up: PCP 3-[address] Logan at wound healing center in ~1 week Please call to schedule / confirm appointments continue current local wound care at [facility]: Please clean wound with acetic acid quarter percent when changing the dressing Wound VAC with Santyl to sacral wound Friday and Friday Lydia to both back wounds and both heel wounds Friday and Friday with foam Followup: Gavin Logan MD [ACTIVE - CAN ADMIT] - ([facility]- [phone]) Gorge Sierra FNP [Primary Care Provider] - 1-2 Weeks
[2024-02-19] MEDS: POTASSIUM CL SA 10 MEQ TAB PO ONE (09:11)
[2024-02-19 12:13] VITALS: BP 92/45; TEMP 98.7
== END 2024-02-19 12:55 | DRG 264 ==
LOC: ER 15:43 → ERHOLD 19:44 → 2ND 22:55
PROVIDERS: ADMIT Internal Medicine; ATTEND Hospitalist
PROC: 0T9B70Z Drainage of Bladder with Drainage Device, Via Natural or Artificial Opening (ICD-10-PCS; 2024-02-12)
PROC: 0JB70ZZ Excision of Back Subcutaneous Tissue and Fascia, Open Approach (ICD-10-PCS; 2024-02-13)
PROC: 0JBR0ZZ Excision of Left Foot Subcutaneous Tissue and Fascia, Open Approach (ICD-10-PCS; 2024-02-13)
PROC: 0JBQ0ZZ Excision of Right Foot Subcutaneous Tissue and Fascia, Open Approach (ICD-10-PCS; 2024-02-13)
PROC: 0JB70ZZ Excision of Back Subcutaneous Tissue and Fascia, Open Approach (ICD-10-PCS; principal; 2024-02-13 09:00)
DX: I96 Gangrene, not elsewhere classified (principal); L89.154 Pressure ulcer of sacral region, stage 4; L89.623 Pressure ulcer of left heel, stage 3; E43 Unspecified severe protein-calorie malnutrition; Z68.1 Body mass index [BMI] 19.9 or less, adult; R64 Cachexia; I48.20 Chronic atrial fibrillation, unspecified; I10 Essential (primary) hypertension; E11.40 Type 2 diabetes mellitus with diabetic neuropathy, unspecified; F32.A Depression, unspecified; E78.00 Pure hypercholesterolemia, unspecified; K59.00 Constipation, unspecified; J44.9 Chronic obstructive pulmonary disease, unspecified; K21.9 Gastro-esophageal reflux disease without esophagitis; M81.0 Age-related osteoporosis without current pathological fracture; G20.A1 Parkinson's disease without dyskinesia, without mention of fluctuations; F02.80 Dementia in other diseases classified elsewhere, unspecified severity, without behavioral disturbance, psychotic disturbance, mood disturbance, and anxiety; B96.5 Pseudomonas (aeruginosa) (mallei) (pseudomallei) as the cause of diseases classified elsewhere; B96.1 Klebsiella pneumoniae [K. pneumoniae] as the cause of diseases classified elsewhere; R62.7 Adult failure to thrive; Z90.49 Acquired absence of other specified parts of digestive tract; Z63.4 Disappearance and death of family member; Z90.710 Acquired absence of both cervix and uterus; Z87.891 Personal history of nicotine dependence
CPT/HCPCS: 36415; 51702; 74177; 80048; 80053; 80061; 80076; 81001; 82550; 82607; 82947; 83605; 83690; 83735; 83880; 84100; 84132; 84443; 85025; 87040; 87070; 87077; 87176; 87186; 87205; 88304; 88305; 97110; 97116; 97161; 97530; 99285; J0612; J0692; J1644; J2003; J2185; J2405; J2543; J2704; J3010; J3475; J3590; J7030; J7040; P9047; Q0162; Q9967

== ENCOUNTER 2024-03-05 14:45 | Observation (INO) | payer OTHER, BC ==
[2024-03-05] MEDS ORDERED: NA CHLORIDE 0.9% 1,000 ML ONE (15:33)
[2024-03-05] MEDS ORDERED: FENTANYL CITR 100 MCG/2 ML ONE (15:33)
[2024-03-05 15:38] LABS: Absolute Lymphocytes (CBC) 1.4 K/uL (0.7-4.9); Absolute Monocytes 0.8 K/uL (0.1-1.3); Basophils % 0.3 % (0-1.3); Eosinophils % 0.3 % (0-4.4); Hematocrit 32.8 % (36.0-45.0); Lymphocytes % 13.6 % (15.3-44.8); MCH 32.2 pg (27.0-35.0); MCHC 33.4 g/dL (32.0-36.0); MCV 96.3 fL (80-100); MPV 9.1 fL (7.6-11.3); Neutrophils % 77.8 % (41.7-73.7); Nucleated Red Blood Cells % 0.1 % (0-0); Platelets 342 thou/uL (152-406); Red Cell Distribution Width 15.8 % (12.1-15.2)
--- NOTE | 2024-03-05 16:27 | ER ---
Nurse's Notes [facility] Name: Maricruz Conrad Age: 83 yrs Sex: Female : 1940 Arrival Date: 03/05/2024 Time: 14:45 Bed 2 Private MD: Diagnosis: Hypotension, unspecified Presentation: 03/05 15:14 Chief complaint: EMS states: Pt was found unresponsive by [facility] staff. B/p was jb4 inittialy in the 60's systolic, O2 was in the 80's on RA. Put on a NRB. last known normal was 1200. Pt is a DNR. Has a pressure ulcer on her sacrum and left heal. Temp was 97.9. Coronavirus screen: At this time, the client does not indicate any symptoms associated with coronavirus-19. Ebola Screen: No symptoms or risks identified at this time. Onset of symptoms was March 05, 2024. Transition of care: patient was not received from another setting of care. 15:14 Method Of Arrival: EMS: [facility] jb4 15:14 Acuity: EMILY 2 jb4 15:14 Initial Sepsis Screen: Does the patient meet any 2 criteria? RR > 20 per min. Mean jb4 Arterial Pressure (MAP) < 65. Yes Does the patient have a suspected source of infection? No. Patient's initial sepsis screen is negative. Risk Assessment: Do you want to hurt yourself or someone else? Patient reports no desire to harm self or others. Historical: - Allergies: 15:16 No Known Allergies; jb4 - PMHx: 15:16 Anxiety; Diabetes - IDDM; COPD; GERD; High Cholesterol; Hypertension; Dementia; jb4 Parkinson's disease; Arthritis; - PSHx: 15:16 Cholecystectomy; Stomach bypass; jb4 - Immunization history:: Adult Immunizations up to date. - Infectious Disease History:: Denies. - Social history:: Smoking status: Patient denies any tobacco usage or history of. Screenin:44 [facility] ED Fall Risk Assessment (Adult) History of falling in the last 3 months, jb4 including since admission No falls in past 3 months (0 pts) Confusion or Disorientation No (0 pts) Intoxicated or Sedated No (0 pts) Impaired Gait No (0 pts) Mobility Assist Device Used No (0 pt) Altered Elimination No (0 pt) Score/Fall Risk Level 0 - 2 = Low Risk Oriented to surroundings, Maintained a safe environment. Abuse screen: Denies threats or abuse. Nutritional screening: No deficits noted. Tuberculosis screening: No symptoms or risk factors identified. Assessment: 15:39 General: Appears distressed, uncomfortable, ill, slender, Behavior is calm, jb4 cooperative, Family reports pt is DNR, and has advanced directive with them. Family is wanting comfort measures only at this time per. MD is aware. Pain: Complains of pain in buttocks and heel of left foot Pain does not radiate. Pain currently is 8 out of 10 on a pain scale. Neuro: Level of Consciousness is awake, alert, obeys commands, Oriented to person, place, time, situation. Cardiovascular: Patient's skin is warm and dry. Respiratory: Airway is patent Respiratory effort is even, labored, Respiratory pattern is regular, symmetrical. Derm: Skin is pink, warm \T\ dry. Wound noted buttocks and heel of left foot Wound is decubitus ulcers. Musculoskeletal: Circulation, motion, and sensation intact. Range of motion: intact in all extremities. 17:05 Reassessment: Patient appears in no apparent distress at this time. Patient and/or jb4 family updated on plan of care and expected duration. Pain level reassessed. Patient is alert, oriented x 3, equal unlabored respirations, skin warm/dry/pink. Power of Director Of Video Analytics Son: Andrei Conrad [phone]. Daughter: Criss Hawkins [phone]. 18:10 Reassessment: Patient appears in no apparent distress at this time. Patient and/or jb4 family updated on plan of care and expected duration. Pain level reassessed. Patient is alert, oriented x 3, equal unlabored respirations, skin warm/dry/pink. Vital Signs: 15:19 BP 70 / 46; Pulse 70; Resp 28; Temp 98.3(TE); Pulse Ox 97% on 15 lpm Non-rebreather jb4 mask; 15:47 BP 65 / 46; Pulse 73; Resp 25; Pulse Ox 98% on 15 lpm Non-rebreather mask; jb4 16:30 BP 85 / 56; Pulse 69; Resp 25; Pulse Ox 100% on 15 lpm Non-rebreather mask; jb4 17:30 BP 87 / 60; Pulse 67; Resp 21; Pulse Ox 95% on 15 lpm Non-rebreather mask; jb4 ED Course: 14:59 Patient arrived in ED. ss 15:00 Manohar Joshi MD is Attending Physician. ec2 15:14 Casper Dumont, RN is Primary Nurse. jb4 15:16 Triage completed. jb4 15:16 Arm band placed on right wrist. jb4 15:31 Initial lab(s) drawn, by me, sent to lab. Inserted saline lock: 22 gauge in left tm3 antecubital area, using aseptic technique. 16:26 Reyna Rizvi is Hospitalizing Provider. ec2 17:07 1650 CM received message from hospitalist provider, STEVEN Guillen to meet with patient and ane family regarding possible hospice services. 1707 CM met with patient and daughter Criss and daughter in law Luz Elena Conrad at the bedside. Patient identified by name and . Demographic sheet confirmed. Patient and Criss asked if Luz Elena's phone number could be added as a contact as well. Luz Elenara Conrad [phone]. PCP Gorge LONGORIA. MPOA is in place. Criss states patient is from [facility] where she was receiving SNF services. Patient does not ambulate and is full assist for ADLs. No HH at this time, however patient has had HH through [facility] in the past. No home oxygen or other DME. Family and patient are amenable to hospice services but are unsure about taking her home on hospice. Family wishes to speak with hospice cash application representative tomorrow, 03/06/24. Choice list provided to patient and daughter Criss. Chosen service is [facility]. CM team will continue to follow and coordinate care. 18:45 No provider procedures requiring assistance completed. Patient admitted, IV remains in jb4 place. Administered Medications: 15:38 Drug: NS 0.9% IV 1000 ml IV at 100 ml/hr once Route: IV; Rate: 100 ml/hr; Site: left jb4 antecubital; 18:45 Follow up: Response: No adverse reaction; IV Status: Infusion continued upon admission jb4 15:38 Drug: fentaNYL (PF) IVP 12.5 mcg IVP once Route: IVP; Site: left antecubital; jb4 16:00 Follow up: Response: No adverse reaction; Marked relief of symptoms; Pain is decreased; jb4 RASS: Alert and Calm (0) Outcome: 16:27 Decision to Hospitalize by Provider. ec2 18:45 Admitted to Med/surg accompanied by tech, via stretcher, room 206, with oxygen, with jb4 chart, 18:45 Condition: stable 18:45 Discharge instructions given to patient, family, Instructed on the need for admit, Demonstrated understanding of instructions, 18:46 Patient left the ED. jb4 Signatures: Wilman Arguelels tm3 Vivien Lawton, RN RN ss Casper Dumont RN RN jb4 Manohar Joshi MD MD ec2 Jacki Espinal RN RN ane Corrections: (The following items were deleted from the chart) 16:04 15:39 Neuro: Level of Consciousness is awake, alert, obeys commands, Oriented to jb4 person, place, time, situation, jb4 17:07 17:05 Reassessment: Patient appears in no apparent distress at this time. Patient jb4 and/or family updated on plan of care and expected duration. Pain level reassessed. Patient is alert, oriented x 3, equal unlabored respirations, skin warm/dry/pink. jb4 18:11 15:39 Derm: Skin is intact, Skin is pink, warm \T\ dry. jb4 jb4
--- NOTE | 2024-03-05 16:27 | EDPHYS ---
Physician Documentation [facility] Name: Maricruz Conrad Age: 83 yrs Sex: Female : 1940 Arrival Date: 03/05/2024 Time: 14:45 Bed 2 Private MD: ED Physician Manohar Joshi HPI: 03/05 15:10 This 83 yrs old Female presents to ER via Unassigned with complaints of ec2 Unresponsive. 15:10 Patient arrives today with unresponsiveness. EMS was called as patient was noted to be ec2 increasingly drowsy, minimally responsive to verbal and painful stimuli which is worse from her baseline. History of dementia, baseline conversational. Family at bedside indicates that patient is DNR, paperwork present and signed indicate that she is DNR.. Historical: - Allergies: 15:16 No Known Allergies; jb4 - PMHx: 15:16 Anxiety; Diabetes - IDDM; COPD; GERD; High Cholesterol; Hypertension; Dementia; jb4 Parkinson's disease; Arthritis; - PSHx: 15:16 Cholecystectomy; Stomach bypass; jb4 - Immunization history:: Adult Immunizations up to date. - Infectious Disease History:: Denies. - Social history:: Smoking status: Patient denies any tobacco usage or history of. ROS: 15:10 Constitutional: as per hpi ec2 Exam: 15:10 Constitutional: GEN: NAD, fairly drowsy individual who is minimally responsive to ec2 verbal and painful stimuli however does occasionally verbalize Head: atraumatic Eyes: EOMI Ears: External ears are normal. CV: regular rate LUNGS: no respiratory distress ABD: non-distended SKIN: no evidence of rashes MSK: no evidence of trauma Vital Signs: 15:19 BP 70 / 46; Pulse 70; Resp 28; Temp 98.3(TE); Pulse Ox 97% on 15 lpm Non-rebreather jb4 mask; 15:47 BP 65 / 46; Pulse 73; Resp 25; Pulse Ox 98% on 15 lpm Non-rebreather mask; jb4 16:30 BP 85 / 56; Pulse 69; Resp 25; Pulse Ox 100% on 15 lpm Non-rebreather mask; jb4 17:30 BP 87 / 60; Pulse 67; Resp 21; Pulse Ox 95% on 15 lpm Non-rebreather mask; jb4 MDM: 15:00 Medical Screening Exam initiated ec2 15:10 Data reviewed: vital signs, nurses notes. ED course: Patient arrives today due to ec2 concern for decline in baseline status and worsening responsiveness. EMS reports that she was hypotensive, minimally responsive and hypoxic on their arrival. Goals of patient and goals of family seem to align and that patient is DNR and family does not want any heroic efforts aside from keeping the patient comfortable as she is hypotensive as well as hypoxic without any significant distress and family indicates that they would like to try to keep her comfortable as best we can. Instructed family that we would perform some basic lab work, give the patient some fluids and keep her on oxygen as she has noted to be hypoxic with saturations in the 20s to 30s with improvement on a nonrebreather.. 15:13 ED course: Given the hypotensive blood pressures as well as a hypoxic oxygen ec2 saturations, I indicated to family that her may be soon given these findings. Will evaluate for other processes such as electrolyte disturbances, anemia, renal dysfunction.. 15:22 ED course: Patient ultimately may also be with severe processes such as septic shock, ec2 cardiogenic failure, stroke however given the goals of care for the family they do not want any significant interventions and I accordingly will not put her through possibly aggravating testing including CT imaging or EKG. 16:26 ED course: On reassessment patient is awake and alert and breathing comfortably on the ec2 nonrebreather, have hypotensive blood pressures on her maintenance IV fluids. I updated the family regarding the results of the lab work as well as her tenuous status and will admit for the goal of comfort cares.. 03/05 15:10 Order name: CBC with Diff; Complete Time: 16:05 ec2 03/05 15:10 Order name: BMP; Complete Time: 16:05 ec2 03/05 17:16 Order name: Social Service Consult EDMS 03/05 15:10 Order name: IV Start; Complete Time: 15:39 ec2 03/05 15:10 Order name: Oxygen Per Protocol; Complete Time: 15:24 ec2 03/05 16:00 Order name: Misc. Order: DNR; Complete Time: 16:02 ec2 Administered Medications: 15:38 Drug: NS 0.9% IV 1000 ml IV at 100 ml/hr once Route: IV; Rate: 100 ml/hr; Site: left jb4 antecubital; 18:45 Follow up: Response: No adverse reaction; IV Status: Infusion continued upon admission jb4 15:38 Drug: fentaNYL (PF) IVP 12.5 mcg IVP once Route: IVP; Site: left antecubital; jb4 16:00 Follow up: Response: No adverse reaction; Marked relief of symptoms; Pain is decreased; jb4 RASS: Alert and Calm (0) Disposition Summary: 03/05/24 16:27 Hospitalization Ordered Notes: Hospitalization Status: Inpatient Admission ec2 Provider: Reyna Rizvi ec2 Location: Telemetry/MedSurg (Inpatient) ec2 Condition: Serious ec2 Problem: an ongoing problem ec2 Symptoms: have improved ec2 Bed/Room Type: Standard ec2 Room Assignment: 206(03/05/24 17:22) eb Diagnosis - Hypotension, unspecified ec2 Forms: - Medication Reconciliation Form ec2 - SBAR form ec2 - Leadership Thank You Letter ec2 Signatures: Dispatcher [employer] Casper Palma RN RN jb4 Ny Brambila Edwin, MD MD ec2 Corrections: (The following items were deleted from the chart) 17: 16:27 ec2 eb
[2024-03-05] MEDS ORDERED: ACETAMINOPHEN 500 MG TAB PO PRN (17:07)
[2024-03-05] MEDS ORDERED: ZOLPIDEM TARTRATE 5 MG TABLET PO PRN (17:07)
[2024-03-05] MEDS ORDERED: ACETAMINOPHEN 325 MG TABLET PO PRN (17:07)
[2024-03-05] MEDS ORDERED: MAGNESIUM HYDROXIDE 8% 30 ML PO PRN (17:07)
--- NOTE | 2024-03-05 17:22 | P.HP ---
Certification for Inpatient Patient admitted to: Observation With expected LOS: <2 Midnights Practitioner: I am a practitioner with admitting privileges, knowledge of patient current condition, hospital course, and medical plan of care. Services: Services provided to patient in accordance with Admission requirements found in Title 42 Section 412.3 of the Code of Federal Regulations Patient History Date of Service: 03/05/24 Reason for admission: Failure to thrive History of Present Illness: At this is 83 years old [facility] resident who is medical history significant for dementia, Parkinson's disease, hypertension, diabetes s/p cholecystectomy and bariatric surgery who was brought to emergency room for decline in response over the past few days by family member. These days she is eating very little, stay in bed all the time, unable to get physical therapy in [facility], she continues to decline She was hypotensive, hypoxic upon arrival at emergency room patient family only wants comfort care denied any aggressive workup including radiology study. Patient was put on nonbreathing mask, 1 L of normal saline bolus given, 12.5 mg IV fentanyl was administered. Now patient is alert awake and follows simple commands. Patient family request hospice care arrangement. Patient is being admitted under observation for hospice care arrangement. Allergies No Known Allergies Allergy (Verified 08/25/23 11:18) Home Medications: Buspirone HCl [Buspar*] 10 mg PO Q6HP PRN 10/23/22 Donepezil [Aricept*] 10 mg PO BID 10/23/22 Duloxetine HCl [Cymbalta] 90 mg PO DAILY 10/23/22 Fluticasone [Flonase 50MCG Nasal Leeper*] 2 spray SUSI DAILY 10/23/22 Folic Acid 1 tab PO DAILY 10/23/22 Gabapentin [Neurontin] 600 mg PO BID 10/23/22 Melatonin 10 mg PO BEDTIME PRN PRN 10/23/22 Vitamin B Complex [Vitamin B Complex*] 1 cap PO DAILY 10/23/22 cycloSPORINE [Restasis] 1 drop EACH EYE BID 10/23/22 Carbidopa/Levodopa 25-100 [Sinemet 25-100*] 1 tab PO TID #90 tab 10/30/22 Acetaminophen [Tylenol] 650 mg PO BIDP PRN 02/13/24 Amlodipine Besylate/Benazepril [Amlodipine-Benazepril 10-40 mg] 1 each PO DAILY 02/13/24 Aspirin Chewable [Aspirin Chewable*] 81 mg PO DAILY 02/13/24 Cholecalciferol (Vitamin D3) [Vitamin D3] 1,000 unit PO DAILY 02/13/24 Eszopiclone [Lunesta] 3 mg PO BEDTIME 02/13/24 Ibandronate Sodium [Boniva] 150 mg PO SEECOM 02/13/24 Ibuprofen [Motrin*] 200 mg PO Q6HP PRN 02/13/24 Memantine HCl [Namenda*] 10 mg PO BID 02/13/24 Methotrexate [Methotrexate*] 5 tab PO Q7D 02/13/24 Montelukast Sodium [Singulair] 10 mg PO DAILY 02/13/24 Multivit-Min/Iron/Folic/Lutein [Centrum Silver Women Tablet] 1 each PO DAILY 02/13/24 Omeprazole [Prilosec] 40 mg PO DAILY 02/13/24 Oxycodone HCl/Acetaminophen [Percocet 10-325 mg Tablet] 1 each PO Q12H 02/13/24 Simvastatin [Zocor] 20 mg PO DAILY 02/13/24 Sotalol HCl [Betapace*] 80 mg PO BID 02/13/24 Trospium Chloride Er 60 mg PO DAILY 02/13/24 Turmeric Root Extract [Turmeric Curcumin] 500 mg PO DAILY 02/13/24 - Past Medical/Surgical History Diabetic: Yes -: HTN, Afib -: Osteoporosis -: GERD -: Diabetes mellitus type 2 -: Hyperlipidemia -: COPD -: Anxiety -: Neuropathy -: Arthritis -: Chronic Back Pain -: Frequent UTI's -: Crohn's disease -: Hysterectomy -: Cataract Sx -: Lap Band and Reversal -: Hip Sx to R hip -: Cholecystectomy -: Pain Pump -: Spinal stimulator -: Watchmen procedure Psychosocial/ Personal History: Patient is of 57 years, 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 Breast CA - Social History Alcohol use: No CD- Drugs: No Caffeine use: Yes Review of Systems is unable to be obtained Physical Examination - Physical Exam Other Physical/Emotional Findings: - Physical Exam. General: Cachectic, chronic ill-looking, in no apparent distress,. HEENT: Normocephalic, atraumatic,. Neck: Supple, without JVD or goiter or thyroid mass. Respiratory: Normal breathing effort, clear to auscultation bilaterally, no crackles no wheezing or rhonchi. Cardiovascular: Regular rate and rhythm, S1, S2 normal, no murmur no gallop. Gastrointestinal: Normal bowel sounds, nondistended, nontender, No ascites, , No masses, no hepatosplenomegaly. Musculoskeletal: No clubbing, No peripheral edema. Integumentary: No rashes. Lymphatics: No axilla or cervical lymphadenopathy. Neurology; alert awake disoriented, follows simple commands, no focal neurologic deficit, severe muscle atrophy of all 4 extremities - Studies Laboratory Data (last 24 hrs) 03/05/24 03/05/24 15:25 15:25 WBC 10.30 Hgb 11.0 L Hct 32.8 L Plt Count 342 Sodium 140 Potassium 4.0 BUN 38 H Creatinine 0.84 Glucose 112 H Assessment and Plan - Plan This is a 83 years old female [facility] resident with past medical history notable for dementia, Parkinson's disease, diabetes, hypertension status post bariatric surgery and cholecystectomy who was brought to emergency room for decrease in mentation over the past few days by her family member. Patient family requested only comfort care, declining any invasive workup including radiology and they are interested in home hospice or hospice in hospital #1 failure to thrive #2 hypotension likely due to dehydration #3 acute or chronic hypoxic respiratory failure of unclear etiology We will admit the patient under observation for hospice arrangement. Social service will be consulted. In the meantime only supplemental oxygen, IV fluid, pain control, continue oral diet as tolerated, sequential compression device for DVT prophylaxis. - Advance Directives Does patient have a Living Will: No Does patient have a Durable POA for Healthcare: No
[2024-03-05] MEDS: D5.45NS W/KCL 20MEQ 1,000 ML IV SCH (19:38)
[2024-03-05] MEDS: ALBUTEROL 2.5 MG/3 ML NEB SOL NEB SCH (19:52)
[2024-03-06 00:04] VITALS: BMI 18.5
[2024-03-06] MEDS: FENTANYL CITR 100 MCG/2 ML IV PRN (05:13)
[2024-03-06 09:17] VITALS: O2SAT 94
--- NOTE | 2024-03-06 11:12 | P.PN ---
Date of Service: 03/06/24 Patient appeared to be moving toward her end-of-life. She is having a respiratory distress requiring nonrebreathing mask, which qualifies inpatient hospice care. Given her underlying medical conditions, poor functionality, advanced age. She is deemed adequate for hospice care for medical standpoint unchanged from yesterday. I spoke to a liaison from [facility], they will accept the patient. Will transition her to inpatient hospice and transfer her out to their facility.
[2024-03-06 16:47] VITALS: BP 97/49; TEMP 98.7
[2024-03-06] MEDS: ONDANSETRON 4 MG/2 ML VIAL IV PRN (17:54)
--- NOTE | 2024-03-07 13:53 | P.DS ---
Admission Date: 03/05/24 Discharge Date: 03/07/24 Disposition: HOSPICE-MEDICAL FACILITY Discharge Condition: Reason for Admission: Failure to thrive Brief History of Present Illness: This is 83 years old female alf resident in DNR/DNI, who has medical history significant for dementia, Parkinson's disease, hypertension, diabetes s/p cholecystectomy and bariatric surgery who was brought to emergency room for decline in response over the past few days by family member. These days she is eating very little, stay in bed all the time, unable to get physical therapy in alf, she continues to decline She was hypotensive, hypoxic upon arrival at emergency room. Patient family only wanted comfort care, denied any aggressive workup including radiology study. Patient was put on nonbreathing mask, 1 L of normal saline bolus given, 12.5 mg IV fentanyl was administered. Afterward she was improved to be alert and awake and followed simple commands. Patient family requested hospice care arrangement. Patient was admitted on general medical floor under observation for inpatient hospice care arrangement. Hospital Course: She continued on supplemental oxygen by non rebreathing mask, IV fluid, pain control with fentanyl IV as needed. She was alert awake but not responsive to any verbal command, mild respiratory distress. Patient appeared to be moving toward her end-of-life. Given her underlying medical conditions, poor functionality, advanced age. She was deemed adequate for hospice care from medical standpoint and unchanged from the previous day. She was accepted for inpatient hospice care by [facility]. Unfortunately she while she was waiting to be transferred out to the facility. Her time of this was 2300 on March 06, 2024. Discharge diagnosis #1 acute respiratory failure of unknown etiology #2 hypotension due to dehydration with or without unclear causes #3 multiple pressure ulcers of sacrum and left heel Vital Signs/Physical Exam: Temp Pulse Resp BP Pulse Ox 98.7 F 76 20 97/49 L 94 03/06/24 16:00 03/06/24 16:00 03/06/24 16:00 03/06/24 16:00 03/06/24 16:00 Other Physical/Emotional Findings: - Physical Exam. General: Cachectic, chronic ill-looking, in moderate respiratory distress. HEENT: Normocephalic, atraumatic,. Neck: Supple, without JVD or goiter or thyroid mass. Respiratory: Distant breath sounds, no crackles no wheezing or rhonchi. Cardiovascular: Distant heart rate. Gastrointestinal: Faint bowel sounds, nondistended, nontender, No ascites, , No masses, no hepatosplenomegaly. Musculoskeletal: No clubbing, No peripheral edema, severe atrophy of all 4 extremities. Integumentary: No rashes, left heel in dressing. Lymphatics: No axilla or cervical lymphadenopathy. Neurology; alert, awake, noncommunicable Laboratory Data at Discharge: WBC 10.30 thou/uL (4.3-10.9) 03/05/24 15:25 Hgb 11.0 g/dL (12.0-15.0) L 03/05/24 15:25 Hct 32.8 % (36.0-45.0) L 03/05/24 15:25 Plt Count 342 thou/uL (152-406) 03/05/24 15:25 Sodium 140 mEq/L (136-145) 03/05/24 15:25 Potassium 4.0 mEq/L (3.5-5.1) 03/05/24 15:25 BUN 38 mg/dL (7-18) H 03/05/24 15:25 Creatinine 0.84 mg/dL (0.55-1.02) 03/05/24 15:25 Glucose 112 mg/dL (74-106) H 03/05/24 15:25 Home Medications: Buspirone HCl [Buspar*] 10 mg PO Q8HP PRN 10/23/22 Donepezil [Aricept*] 10 mg PO BID 10/23/22 Duloxetine HCl [Cymbalta] 90 mg PO DAILY 10/23/22 Folic Acid 1 tab PO DAILY 10/23/22 Gabapentin [Neurontin] 600 mg PO BID 10/23/22 Melatonin 10 mg PO BEDTIME PRN PRN 10/23/22 Vitamin B Complex [Vitamin B Complex*] 1 cap PO DAILY 10/23/22 cycloSPORINE [Restasis] 1 drop EACH EYE BID 10/23/22 Carbidopa/Levodopa 25-100 [Sinemet 25-100*] 1 tab PO TID #90 tab 10/30/22 Acetaminophen [Tylenol] 650 mg PO Q6H PRN 02/13/24 Amlodipine Besylate/Benazepril [Amlodipine-Benazepril 10-40 mg] 1 each PO DAILY 02/13/24 Aspirin Chewable [Aspirin Chewable*] 81 mg PO DAILY 02/13/24 Cholecalciferol (Vitamin D3) [Vitamin D3] 1,000 unit PO DAILY 02/13/24 Memantine HCl [Namenda*] 10 mg PO BID 02/13/24 Methotrexate [Methotrexate*] 5 tab PO Q7D 02/13/24 Montelukast Sodium [Singulair] 10 mg PO DAILY 02/13/24 Multivit-Min/Iron/Folic/Lutein [Centrum Silver Women Tablet] 1 each PO DAILY 02/13/24 Omeprazole [Prilosec] 40 mg PO DAILY 02/13/24 Simvastatin [Zocor] 20 mg PO BEDTIME 02/13/24 Sotalol HCl [Betapace*] 80 mg PO BID 02/13/24 Alendronate Sodium 70 mg PO EVERY 7TH DAY 03/06/24 Ascorbic Acid [Vitamin C] 500 mg PO DAILY 03/06/24 Hydrocodone Bit/Acetaminophen [[place] 10-325 Tablet] 1 each PO BID 03/06/24 Megestrol Acetate 400 mg PO DAILY 03/06/24 Oxybutynin Chloride [Oxybutynin Chloride ER] 10 mg PO DAILY 03/06/24 Zinc Gluconate [Zinc] 50 mg PO DAILY 03/06/24 Followup: Gorge Sierra FNP [Primary Care Provider] -
== END 2024-03-06 21:16 | disposition hospice, inpatient (51) ==
LOC: ER 14:45 → ERHOLD 17:07 → 2ND 17:27
PROVIDERS: ADMIT Internal Medicine; ATTEND Internal Medicine
DX: R62.7 Adult failure to thrive (principal); J96.21 Acute and chronic respiratory failure with hypoxia; I95.9 Hypotension, unspecified; E86.0 Dehydration; F03.90 Unspecified dementia, unspecified severity, without behavioral disturbance, psychotic disturbance, mood disturbance, and anxiety; G20.A1 Parkinson's disease without dyskinesia, without mention of fluctuations; I10 Essential (primary) hypertension; E11.9 Type 2 diabetes mellitus without complications; L89.159 Pressure ulcer of sacral region, unspecified stage; L89.629 Pressure ulcer of left heel, unspecified stage; Z98.84 Bariatric surgery status
CPT/HCPCS: 96361; 87070 ×2; 85025; 80048; 36415; 87205 ×2; 87077; 87186; 94760 ×3; 96374; 99285; J7613 ×4; J3010 ×4; J2405; J7030; G0378 ×3

== ENCOUNTER 2024-03-06 21:15 | Inpatient (IN) | payer OTHER ==
[2024-03-06 21:31] VITALS: BP 107/58; TEMP 97.9
[2024-03-06] MEDS ORDERED: LORazepam 2 MG/ML VIAL IV PRN (21:50)
[2024-03-06] MEDS ORDERED: SCOPOLAMINE HYDROBROMIDE PATCH TD SCH (21:51)
[2024-03-06] MEDS ORDERED: HYDROMORPHONE HCL 1 MG/ML INJ IV SCH (22:00)
[2024-03-07 02:01] VITALS: O2SAT 93; BMI 18.4
--- NOTE | 2024-03-07 16:46 | P.SSS ---
Patient History Date of Service: 03/07/24 Reason for admission: RESPIRATORY FAILURE History of Present Illness: BRIGID IS 83 YEARS OLD LADY WITH DEMENTIA AND CACHEXIA WHO COMES WITH PNEUMONIA AND REPISRATORY FAILURE. SHE WAS ON NRB AND WAS STILL DYSPNEIC AT REST. FAMILY ASKED FOR HOSPICE. I DID TELEHEALTH EVALUATION AND AGREED THAT SHE MET MEDICARE CRITERIA. SHE WAS KEPT ON COMFORT CARE PROTOCOL. SHE WITHIN A FEW HOURS EXPECTED. Allergies No Known Allergies Allergy (Verified 08/25/23 11:18) Home Medications: Buspirone HCl [Buspar*] 10 mg PO Q8HP PRN 10/23/22 Donepezil [Aricept*] 10 mg PO BID 10/23/22 Duloxetine HCl [Cymbalta] 90 mg PO DAILY 10/23/22 Folic Acid 1 tab PO DAILY 10/23/22 Gabapentin [Neurontin] 600 mg PO BID 10/23/22 Melatonin 10 mg PO BEDTIME PRN PRN 10/23/22 Vitamin B Complex [Vitamin B Complex*] 1 cap PO DAILY 10/23/22 cycloSPORINE [Restasis] 1 drop EACH EYE BID 10/23/22 Carbidopa/Levodopa 25-100 [Sinemet 25-100*] 1 tab PO TID #90 tab 10/30/22 Acetaminophen [Tylenol] 650 mg PO Q6H PRN 02/13/24 Amlodipine Besylate/Benazepril [Amlodipine-Benazepril 10-40 mg] 1 each PO DAILY 02/13/24 Aspirin Chewable [Aspirin Chewable*] 81 mg PO DAILY 02/13/24 Cholecalciferol (Vitamin D3) [Vitamin D3] 1,000 unit PO DAILY 02/13/24 Memantine HCl [Namenda*] 10 mg PO BID 02/13/24 Methotrexate [Methotrexate*] 5 tab PO Q7D 02/13/24 Montelukast Sodium [Singulair] 10 mg PO DAILY 02/13/24 Multivit-Min/Iron/Folic/Lutein [Centrum Silver Women Tablet] 1 each PO DAILY 02/13/24 Omeprazole [Prilosec] 40 mg PO DAILY 02/13/24 Simvastatin [Zocor] 20 mg PO BEDTIME 02/13/24 Sotalol HCl [Betapace*] 80 mg PO BID 02/13/24 Alendronate Sodium 70 mg PO EVERY 7TH DAY 03/06/24 Ascorbic Acid [Vitamin C] 500 mg PO DAILY 03/06/24 Hydrocodone Bit/Acetaminophen [[place] 10-325 Tablet] 1 each PO BID 03/06/24 Megestrol Acetate 400 mg PO DAILY 03/06/24 Oxybutynin Chloride [Oxybutynin Chloride ER] 10 mg PO DAILY 03/06/24 Zinc Gluconate [Zinc] 50 mg PO DAILY 03/06/24 - Past Medical/Surgical History Diabetic: Yes -: HTN, Afib -: Osteoporosis -: GERD -: Diabetes mellitus type 2 -: Hyperlipidemia -: COPD -: Anxiety -: Neuropathy -: Arthritis -: Chronic Back Pain -: Frequent UTI's -: Crohn's disease -: Hysterectomy -: Cataract Sx -: Lap Band and Reversal -: Hip Sx to R hip -: Cholecystectomy -: Pain Pump -: Spinal stimulator -: Watchmen procedure Psychosocial/ Personal History: Patient is of 57 years, 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 Breast CA - Social History Smoking Status: Former smoker Alcohol use: No CD- Drugs: No Caffeine use: No Place of Residence: [facility] Physical Examination - Vital Signs Temperature: 97.9 F Blood Pressure: 107/58 Pulse: 71 Respirations: 18 Pulse Ox (%): 93 - Physical Exam General: Alert, Oriented x1, Cachectic, Moderate distress, Severe distress Respiratory: Other (RAPID BREATHING.) - Diagnosis (Problem(s)) (1) Sepsis due to Streptococcus pneumoniae with acute hypercapnic respiratory failure Status: Acute Plan: SHE HAD RAPID RESPIRATORY FAILURE. AT NIGHT AND SHE WAS KEPT COMFORTABLE ON HOSPICE. - Disposition Disposition: Condition:
== END 2024-03-07 02:26 | disposition expired | DRG 951 ==
LOC: 2ND 21:15
PROVIDERS: ADMIT Internal Medicine; ATTEND Internal Medicine
DX: Z51.5 Encounter for palliative care (principal)
CPT/HCPCS: J1171